=== PATIENT | male | born 1965 | race Caucasian/White ===

== ENCOUNTER → 2017-07-25 | Day surgery (SDC) | payer BC, OTHER ==
[2017-07-15 10:14] VITALS: Ht 165.1 cm; Wt 131.8 kg
[~2017-07-25] VITALS: Ht 165.1 cm; Wt 131.8 kg
[~2017-07-25] MED LIST: ALBU18002 INH; AMLO-114 PO; ASPI325T45 PO; BENZ100C84 PO; CLBPO15 TOP; FIBETAB PO; GLC/500 PO; INSU100I23 SC; LATA0.009 OPB; LEVO100T7 PO; LIDOCAINE HCL 2% 2 ML VIAL (20MG/ML) ONE; LIRA18IN SC; MULT-506 PO; NAPR375T3 PO; NYSS/ PO; OMEG10007 PO; POTA10CA28 PO; PROPOFOL IV EMULSION 10 MG/ML 20 ML VIAL IV ONE; ROSU20TA PO; SODIUM CHLORIDE 0.9% 500ML 500 ML IV ONE; VITAMIN D PO
--- NOTE | 2017-07-25 09:23 | Endo History and Physical ---
History & Physical Date of Service: Jul 25, 2017. Chief Complaint: screening Referring Physician: Dr. Danis Mariano III History of Present Illness screening colonoscopy Past Surgical History Hx Cardiac Surgery: No Hx Internal Defibrillator: No Hx Pacemaker: No Hx Abdominal Surgery: No Hx of Implantable Prosthesis: No Hx Post-Op Nausea and Vomiting: No Hx Cancer Surgery: No Hx Thoracic Surgery: No Hx Orthopedic: No Hx Urinary Tract Surgery: No Family History None Social History Smoking Status: Never Smoker Hx Substance Use: No Hx Alcohol Use: No Allergies Coded Allergies: Doxycycline (Verified Allergy, Unknown, HIVES, 07/15/17) Macrolides and Ketolides (Verified Allergy, Unknown, UNKNOWN, 07/15/17) Morphine and Related (Verified Allergy, Unknown, GI UPSET, 07/15/17) Penicillins (Verified Allergy, Unknown, RASH, 07/15/17) Current Medications Reported Home Medications Medications Dose Route/Sig Max Daily Dose Days Date Category Aspirin 325 Mg Tab 325 Mg PO HS 07/15/17 Reported Multivitamin (Multivitamins) Tab 1 Tab PO QAM 07/15/17 Reported [Vitamin D] 1 Tab PO QAM 07/15/17 Reported Fiber Complete (Fiber) 62.5 Mg Tab 1 Tab PO QAM 07/15/17 Reported [place]-3 (Fish Oil) 1 Ea Cap 1 Cap PO QAM 07/15/17 Reported Clobetasol Propionate 45 Appln/15 Gm Oint 1 Appln TOP HS 30 07/15/17 Reported Xalatan 0.005% Oph Blanca (Latanoprost) 0.005 % Blanca 1 Drops OPB HS 90 07/15/17 Reported Crestor (Rosuvastatin Calcium) 20 Mg Tab 20 Mg PO QPM 07/15/17 Reported Tessalon Perles (Benzonatate) 100 Mg Cap 1-2 Cap PO Q4 PRN 5 07/15/17 Reported Proair Respiclick (Albuterol Sulfate) 108 Mcg/Act Aer 2 Puff INH Q4H PRN 07/15/17 Reported Levothyroxine Sodium 100 Mcg Tab 1 Tab PO HS 90 07/15/17 Reported Victoza (Liraglutide) 18 Mg/3 Ml Inj 1 Dose SC HS 07/15/17 Reported Norvasc (Amlodipine Besylate) 10 Mg Tab 10 Mg PO HS 07/15/17 Reported Naproxen 375 Mg Tab 1 Tab PO BID 30 07/15/17 Reported Basaglar Kwikpen (Insulin Glargine) 100 Unit/Ml Inj 32 Unit SC BID 07/15/17 Reported Micro-K Ext Rel (Potassium Chloride) 10 Meq Capcr 10 Meq PO BID 07/15/17 Reported Nystatin Suspension (Nystatin) 1 Ml Susp 1 Dose PO BID 07/15/17 Reported Glucophage (Metformin Hcl) 500 Mg Tab 2 Tab PO BID 07/15/17 Reported Vital Signs Weight (Kilograms): 131.82 Height (Feet): 5 Height (Inches): 5 Date Time Temp Pulse Resp B/P (MAP) Pulse Ox O2 Delivery O2 Flow Rate FiO2 07/25/17 09:07 36.8 89 20 162/96 (118) 96 Room Air Physical Exam General Appearance: no apparent distress Respiratory/Chest: Auscultation: breath sounds normal Cardiovascular: Heart Auscultation: RRR Abdomen: Inspection & Palpation: soft Liver: non-tender Assessment and Plan stable for colonoscopy
--- NOTE | 2017-07-25 11:08 | Discharge Instructions ---
Endoscopy Patient Instructions Date / Procedure(s) Performed Jul 25, 2017. Colonoscopy Allergy Information Coded Allergies: Doxycycline (Verified Allergy, Unknown, HIVES, 07/15/17) Macrolides and Ketolides (Verified Allergy, Unknown, UNKNOWN, 07/15/17) Morphine and Related (Verified Allergy, Unknown, GI UPSET, 07/15/17) Penicillins (Verified Allergy, Unknown, RASH, 07/15/17) Discharge Date / Findings Jul 25, 2017. normal colonoscopy with poor prep. Medication Instructions Stopped Medication(s): last dose ASAand Metformin Weds Provider Instructions Activity Restrictions - No exercising or heavy lifting for 24 hours. - Do not drink alcohol the day of the procedure. - Do not drive a car or operate machinery until the day after the procedure. - Do not make any important decisions or sign important papers in 24 hours after the procedure. Following Day: - Return to full activity which may include returning to work/school. Diet Start your diet with liquids and light foods (jello, soup, juice, toast). Then eat your usual diet if not nauseated. Treatment For Common After Affects For mild abdominal pain, bloating, or excessive gas: - Rest - Eat lightly - Lie on right side Follow-Up Information Follow-up with Dr. Danis Mariano III as scheduled Anesthesia Information What You Should Know You have had a procedure that required some medicine to reduce anxiety and discomfort. This treatment is called moderate sedation. After receiving the treatment, you may be sleepy, but you will be able to breathe on your own. The effects of the treatment may last for several hours. Follow these instructions along with Activity/Diet recommendations noted above: * Do NOT do anything where dizziness or clumsiness would be dangerous. * Rest quietly at home today, then you can be up and about tomorrow. * Have a responsible person stay with you the rest of today. * You may have had an I.V. today. If so, you may take the dressing off later today. Recommendations Call your doctor if: * Trouble breathing * Continuous vomiting for more than 24 hours * Temperature above 101 degrees * Severe abdominal pain or bloating * Pain not relieved by pain medicine ordered * There is increased drainage or redness from any incision * A large amount of rectal bleeding greater than 2-3 tablespoons. (If you had a polyp/s removed or have hemorrhoids, a small amount of blood - from the rectum is to be expected.) * You have any unanswered questions or concerns. IN THE EVENT OF A SERIOUS EMERGENCY, GO TO THE NEAREST EMERGENCY ROOM Your discharge instructions were prepared by provider Yousuf Ridlye. Patient Instructions Signature Page [place] Patient (or Guardian) Signature/Date: I have read and understand the instructions given to me by my caregivers. Caregiver/RN/Doctor Signature/Date: The above-named patient and/or guardian has received patient instructions on this date. + Original Patient Signature Page (only) stays with chart. Please make copy for patient.
--- NOTE | 2017-07-25 11:09 | GI REPORT ---
Procedure Date: 07/25/2017 10:33 AM Procedure: Colonoscopy Indications: Screening for colorectal malignant neoplasm Medicines: See the Anesthesia note for documentation of the administered medications Complications: No immediate complications. Estimated Blood Loss: Estimated blood loss: none. Procedure: Pre-Anesthesia Assessment: - Prior to the procedure, a History and Physical was performed, and patient medications, allergies and sensitivities were reviewed. The patient's tolerance of previous anesthesia was reviewed. - The risks and benefits of the procedure and the sedation options and risks were discussed with the patient. All questions were answered and informed consent was obtained. - Patient identification and proposed procedure were verified prior to the procedure by the physician and the nurse. The procedure was verified in the pre-procedure area. - Pre-procedure physical examination revealed no contraindications to sedation. - After reviewing the risks and benefits, the patient was deemed in satisfactory condition to undergo the procedure. After I obtained informed consent, the scope was passed under direct vision. Throughout the procedure, the patient's blood pressure, pulse, and oxygen saturations were monitored continuously. The scope was introduced through the anus and advanced to the cecum, identified by appendiceal orifice and ileocecal valve. The colonoscopy was performed without difficulty. The patient tolerated the procedure well. The quality of the bowel preparation was poor. Findings: The perianal and digital rectal examinations were normal. A moderate amount of stool was found in the entire colon, interfering with visualization. The exam was otherwise without abnormality on direct and retroflexion views. Impression: - Preparation of the colon was poor. - Stool in the entire examined colon. - The examination was otherwise normal on direct and retroflexion views. - No specimens collected. Recommendation: - Repeat colonoscopy in 1 year because the bowel preparation was poor. - Discharge patient to home. Yousuf Ridley M.D. Yousuf Ridley MD 07/25/2017 11:09:04 AM This report has been signed electronically. Note Initiated On: 07/25/2017 10:33 AM I attest to the content of the Intraoperative Record and orders documented therein, exceptions below
[2017-07-25 11:46] VITALS: BP 123/70; PULSE 76; O2SAT 98
--- NOTE | 2017-07-25 12:03 | Anesthesiology Progress Note ---
Anesthesia Post Op Note Date & Time Jul 25, 2017 at 12:03 Vital Signs Pain Intensity: 0 Vital Signs Past 12 Hours Date Time Temp Pulse Resp B/P (MAP) Pulse Ox O2 Delivery O2 Flow Rate FiO2 07/25/17 11:46 76 20 123/70 (87) 98 Room Air 07/25/17 11:23 78 18 121/73 (89) 98 Room Air 07/25/17 11:08 75 14 107/56 (73) 98 Room Air 07/25/17 09:07 36.8 89 20 162/96 (118) 96 Room Air Notes Mental Status: alert / awake / arousable, participated in evaluation Pt Amnestic to Procedure: Yes Nausea / Vomiting: adequately controlled Pain: adequately controlled Airway Patency, RR, SpO2: stable & adequate BP & HR: stable & adequate Hydration State: stable & adequate Anesthetic Complications: no major complications apparent
== END | disposition home or self-care (01) ==
LOC: C.GI 08:24
PROVIDERS: ATTEND Internal Medicine Gastroenterology
DX: Z12.11 Encounter for screening for malignant neoplasm of colon (principal); G47.33 Obstructive sleep apnea (adult) (pediatric); I10 Essential (primary) hypertension; E78.5 Hyperlipidemia, unspecified; Z86.73 Personal history of transient ischemic attack (TIA), and cerebral infarction without residual deficits; E11.9 Type 2 diabetes mellitus without complications; Z79.4 Long term (current) use of insulin; E03.9 Hypothyroidism, unspecified; F32.9 Major depressive disorder, single episode, unspecified; E66.01 Morbid (severe) obesity due to excess calories; H40.9 Unspecified glaucoma; Z79.82 Long term (current) use of aspirin

== ENCOUNTER 2017-12-10 12:17 | Inpatient (IN) | payer OTHER ==
[2017-12-10] VITALS (22 sets, daily range): BP systolic 132–209; BP diastolic 70–119; PULSE 72–89; TEMP 36.5–37.2; O2SAT 94–100; BMI 52.2
[~2017-12-10] VITALS: Ht 162.6 cm; Wt 126.6 kg
[~2017-12-10 12:17] MED LIST changes: -LIDOCAINE HCL 2% 2 ML VIAL (20MG/ML) ONE; +NAPR-1221 PO; -NAPR375T3 PO; -PROPOFOL IV EMULSION 10 MG/ML 20 ML VIAL IV ONE; -SODIUM CHLORIDE 0.9% 500ML 500 ML IV ONE
[2017-12-10] MEDS ORDERED: CHOL100010 PO (13:07)
--- NOTE | 2017-12-10 13:29 | DIAGNOSTIC IMAGING REPORT ---
CHEST ONE VIEW PORTABLE CLINICAL HISTORY: 52 years-old Male presenting with ANEMIA, PALPITATIONS. TECHNIQUE: Portable upright AP view of the chest was obtained. COMPARISON: 01/20/2008. FINDINGS: Cardiac silhouette enlarged. Mild vascular prominence. Lungs and pleural spaces clear. Osseous structures normal. IMPRESSION: 1. Mild cardiomegaly and pulmonary vascular prominence could suggest volume overload. No nawaf pulmonary edema or other evidence of acute cardiopulmonary disease. Electronically signed by: Emre Ascencio M.D. 12/10/2017 1:27 PM Dictated Date/Time: 12/10/2017 1:26 PM
[2017-12-10 13:54] LABS: PTT PATIENT 22.5 SECONDS (21.0-31.0)
[2017-12-10 14:01] LABS: HEMATOCRIT 22.1 % (42-52); HEMOGLOBIN 5.8 g/dL (14.0-18.0); MEAN CELL VOLUME 56.1 fL (80-100); MEAN CORPUSCULAR HEMOGLOBIN 14.7 pg (25-34); MEAN CORPUSCULAR HGB CONC 26.2 g/dl (32-36); PLATELET COUNT 252 K/uL (130-400); RED CELL DISTRIBUTION WIDTH SD 43.3 fL (36.4-46.3); WHITE BLOOD COUNT 7.91 K/uL (4.8-10.8)
[2017-12-10 14:04] LABS: ALBUMIN 3.6 gm/dl (3.4-5.0); ALT/SGPT 21 U/L (12-78); AST/SGOT 15 U/L (15-37); BLOOD UREA NITROGEN 8 mg/dl (7-18); CALCIUM 8.7 mg/dl (8.5-10.1); CARBON DIOXIDE 25 mmol/L (21-32); CREATININE 0.89 mg/dl (0.60-1.40); GLUCOSE 181 mg/dl (70-99); POTASSIUM 3.9 mmol/L (3.5-5.1); SODIUM 135 mmol/L (136-145)
[2017-12-10 14:09] LABS: ALKALINE PHOSPHATASE 83 U/L (45-117); CKMB 0.8 ng/ml (0.5-3.6); TOTAL PROTEIN 7.6 gm/dl (6.4-8.2)
--- NOTE | 2017-12-10 14:15 | EMERGENCY ROOM VISIT NOTE ---
ED Visit Note First contact with patient: 12:42 Patient was seen by our PA/MECHANICAL INTEGRITY ENGINEER. I was involved in the patient's care and did evaluate the patient myself. I was involved in the care throughout the ER stay. The patient presents with some fatigue. Outpatient laboratory testing showed a low hemoglobin, hemoglobin was confirmed low at 5.8. The patient did consent to a packed red blood cell transfusion. He is currently resting comfortably. Hospitalization is required. The cause for the anemia is unclear.
[2017-12-10 14:16] LABS: BASO % 1.4 %; BASO ABS # 0.11 K/uL (0-0.2); EOS % 6.6 %; EOS ABS # 0.52 K/uL (0-0.5); IG# 0.02 K/uL (0.00-0.02); LYMPH % 18.6 %; LYMPH ABS # 1.47 K/uL (1.2-3.4); MONO % 6.1 %; MONO ABS # 0.48 K/uL (0.11-0.59); NEUT ABS # 5.31 K/uL (1.4-6.5)
--- NOTE | 2017-12-10 15:06 | EMERGENCY ROOM VISIT NOTE ---
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 Patient reports that he was seen by Dr. Hurd today to be cleared for cataract surgery in 1 week. He had blood work performed today which showed that he was anemic, with a hemoglobin of 5.7. Patient reports that he saw his primary care provider Dr. Mariano for a physical and medical clearance one week ago. He does not believe that any blood work was performed at that time. He does not have a known history of anemia. He reports that he has been tired recently, attributes this to the "winter blues," he denies any lightheadedness, dizziness or near syncope. No chest pain, but has had some intermittent palpitations or pounding heart. He has had some intermittent epistaxis but reports that he is generally able to get the bleeding stopped after a few minutes. He denies any dark or tarry stools, bright red blood per rectum or hematemesis. He denies any easy bruising or bleeding gums. He denies any abdominal pain, reports he had a colonoscopy recently which was normal. He takes a full-strength aspirin daily for his history of CVA, and is using naproxen every other day for joint pain. He reports his father had pernicious anemia. Review of Systems Review of systems as per HPI. All other systems reviewed were negative. 10 systems reviewed. Past Medical/Surgical History Medical Problems: (1) Cerebral Art Occlusion Nos W Cerebral Infarction (2) Diab Flores Wo Compl, Type Ii Or Unspec Type, Not Uncntrld (3) Hyperlipidemia, Unspecified (4) Hypertension Nos (5) Hypothyroidism, Unspecified (6) Obstructive Sleep Apnea (Adult) (Pediatric) Surgical Problems: (1) History of strabismus surgery Electronic medical records are reviewed and summarized as above/below. See Problem List. Social History Smoking Status: Never Smoker Alcohol Use: none Marital Status: Housing Status: lives with significant other Occupation Status: employed Current/Historical Medications Scheduled Amlodipine (Norvasc), 10 MG PO HS Aspirin (Aspirin), 325 MG PO HS Cholecalciferol (Vitamin D), 1 TAB PO DAILY Clobetasol Propionate (Clobetasol Propionate), 1 APPLN TOP HS Fiber (Fiber Complete), 1 TAB PO QAM Fish Oil ([place]-3), 1 CAP PO QAM Insulin Glargine (Basaglar Kwikpen), 32 UNIT SC BID Latanoprost (Xalatan 0.005% Oph Blanca), 1 DROPS OPB HS Levothyroxine Sodium (Levothyroxine Sodium), 1 TAB PO HS Liraglutide (Victoza), 1.2 MG SC HS Metformin Hcl (Glucophage), 2 TAB PO BID Metoprolol Succinate (Toprol Xl), 0.5 TAB PO DAILY Multivitamin (Multivitamin), 1 TAB PO QAM Naproxen (Naproxen), 1 TAB PO BID Nystatin (Nystatin Suspension), 1 DOSE PO BID Potassium Chloride (Micro-K Ext Rel), 10 MEQ PO BID Rosuvastatin Calcium (Crestor), 20 MG PO QPM Scheduled PRN Albuterol Sulfate (Proair Respiclick), 2 PUFF INH Q4H PRN for Shortness of Breath Benzonatate (Tessalon Perles), 1-2 CAP PO Q4 PRN for Cough Physical Exam Vital Signs Date Time Temp Pulse Resp B/P (MAP) Pulse Ox O2 Delivery O2 Flow Rate FiO2 12/10/17 17:00 76 17 166/93 100 12/10/17 16:52 36.9 76 20 98 12/10/17 16:45 74 11 173/95 99 12/10/17 16:31 75 15 167/94 98 12/10/17 16:17 77 15 99 12/10/17 16:16 190/103 12/10/17 16:15 173/99 12/10/17 16:15 77 12 190/103 100 0.0 12/10/17 16:14 36.9 76 12 173/99 94 12/10/17 16:02 162/88 12/10/17 16:01 37.0 72 16 162/88 100 0.0 12/10/17 15:49 37.2 74 15 170/96 100 0.0 12/10/17 15:47 76 15 100 12/10/17 15:46 170/96 12/10/17 15:17 77 18 93 2/28/18 14:47 79 15 100 12/10/17 14:17 86 12 99 12/10/17 14:16 93 18 152/80 96 Room Air 12/10/17 14:01 152/80 12/10/17 13:47 73 17 100 12/10/17 13:37 82 14 141/72 95 Room Air 12/10/17 13:34 141/72 12/10/17 13:17 85 16 12/10/17 12:47 87 19 12/10/17 12:45 86 12/10/17 12:43 Room Air 12/10/17 12:19 36.5 91 18 199/85 100 Physical Exam CONSTITUTIONAL: Patient is an obese 52-year-old white male who is awake and alert and in no acute distress. He appears older than his stated age. EYES: Pupils equal, round, reactive to light and accommodation. EOMs intact without nystagmus. Sclera are anicteric. Conjunctivae are pale. ENT: Tympanic membranes intact, with normal landmarks. External canals are clear. Oral and nasopharynx are clear. Mucous membranes are moist, no lesions , tongue and gums appear normal. NECK: No bruits auscultated. Supple without lymphadenopathy. No thyromegaly. No meningeal signs. Full active range of motion without discomfort. CARDIOVASCULAR: Regular rate and rhythm, with normal S1 and S2, no murmur is appreciated. No carotid bruits auscultated. No JVD. Peripheral pulses easy to palpable. RESPIRATORY: Breath sounds equal and clear to auscultation without wheezes, rales, or rhonchi heard. Full and equal chest expansion without accessory muscle use or retractions. GI: Bowel sounds are present. Abdomen is soft, nontender, nondistended. No organomegaly. No pulsatile masses. No guarding or rebound. RECTAL EXAM: No masses or tenderness, stool is brown and Hemoccult negative. MUSCULOSKELETAL: Full range of motion of extremities x 4 with good strength. No cyanosis, edema, joint tenderness or swelling. No deformity. INTEGUMENTARY: No lesions or rash, normal skin turgor. NEUROLOGICAL: Alert, oriented, and cooperative. Cranial nerves, sensation and strength grossly intact. Pupils round, equal, and react to light, EOMs are full. LYMPH: No lymphadenopathy. Medical Decision & Procedures ER Provider Diagnostic Interpretation: CHEST ONE VIEW PORTABLE CLINICAL HISTORY: 52 years-old Male presenting with ANEMIA, PALPITATIONS. TECHNIQUE: Portable upright AP view of the chest was obtained. COMPARISON: 01/20/2008. FINDINGS: Cardiac silhouette enlarged. Mild vascular prominence. Lungs and pleural spaces clear. Osseous structures normal. IMPRESSION: 1. Mild cardiomegaly and pulmonary vascular prominence could suggest volume overload. No nawaf pulmonary edema or other evidence of acute cardiopulmonary disease. Laboratory Results 12/10/17 13:28 Red Blood Count 3.94, Mean Corpuscular Volume 56.1, Mean Corpuscular Hemoglobin 14.7, Mean Corpuscular Hemoglobin Concent 26.2, Neutrophils (%) (Auto) 67.0, Lymphocytes (%) (Auto) 18.6, Monocytes (%) (Auto) 6.1, Eosinophils (%) (Auto) 6.6, Basophils (%) (Auto) 1.4, Neutrophils # (Auto) 5.31, Lymphocytes # (Auto) 1.47, Monocytes # (Auto) 0.48, Eosinophils # (Auto) 0.52, Basophils # (Auto) 0.11 12/10/17 13:28 Test 12/10/17 13:28 White Blood Count 7.91 K/uL (4.8-10.8) Red Blood Count 3.94 M/uL (4.7-6.1) Hemoglobin 5.8 g/dL (14.0-18.0) Hematocrit 22.1 % (42-52) Mean Corpuscular Volume 56.1 fL (80-100) Mean Corpuscular Hemoglobin 14.7 pg (25-34) Mean Corpuscular Hemoglobin Concent 26.2 g/dl (32-36) Platelet Count 252 K/uL (130-400) Neutrophils (%) (Auto) 67.0 % Lymphocytes (%) (Auto) 18.6 % Monocytes (%) (Auto) 6.1 % Eosinophils (%) (Auto) 6.6 % Basophils (%) (Auto) 1.4 % Neutrophils # (Auto) 5.31 K/uL (1.4-6.5) Lymphocytes # (Auto) 1.47 K/uL (1.2-3.4) Monocytes # (Auto) 0.48 K/uL (0.11-0.59) Eosinophils # (Auto) 0.52 K/uL (0-0.5) Basophils # (Auto) 0.11 K/uL (0-0.2) RDW Standard Deviation 43.3 fL (36.4-46.3) RDW Coefficient of Variation 21.0 % (11.5-14.5) Immature Granulocyte % (Auto) 0.3 % Immature Granulocyte # (Auto) 0.02 K/uL (0.00-0.02) Hypochromasia PRESENT Poikilocytosis PRESENT Anisocytosis PRESENT Microcytosis PRESENT Absolute Reticulocyte Count 0.06 10^6/uL (0.02-0.10) Percent Reticulocyte Count 1.7 % (0.5-2.0) Prothrombin Time 10.9 SECONDS (9.0-12.0) Prothromb Time International Ratio 1.0 (0.9-1.1) Activated Partial Thromboplast Time 22.5 SECONDS (21.0-31.0) Partial Thromboplastin Ratio 0.9 Anion Gap 6.0 mmol/L (3-11) Est Creatinine Clear Calc Drug Dose 129.4 ml/min Estimated GFR () 115.6 Estimated GFR (Non- 99.7 BUN/Creatinine Ratio 9.4 (10-20) Calcium Level 8.7 mg/dl (8.5-10.1) Total Bilirubin 0.5 mg/dl (0.2-1) Aspartate Amino Transf (AST/SGOT) 15 U/L (15-37) Alanine Aminotransferase (ALT/SGPT) 21 U/L (12-78) Alkaline Phosphatase 83 U/L (45-117) Total Creatine Kinase 64 U/L (39-308) Creatine Kinase MB 0.8 ng/ml (0.5-3.6) Creatine Kinase MB Ratio 1.3 (0-3.0) Troponin I < 0.015 ng/ml (0-0.045) Total Protein 7.6 gm/dl (6.4-8.2) Albumin 3.6 gm/dl (3.4-5.0) Globulin 4.0 gm/dl (2.5-4.0) Albumin/Globulin Ratio 0.9 (0.9-2) ECG Per My Interpretation Indication: other (severe anemia) Rate (beats per minute): 91 Rhythm: sinus rhythm Findings: 1st degree AV block, nonspecific-ST abn (Lateral), no acute ischemic change Change: no significant change ED Course The patient was seen and assessed as above. His old records were reviewed. He does not have any recent laboratory studies at our facility for comparison. His history and presentation were reviewed with attending physician and ED workup was agreed upon. IV lock was initiated, EKG was performed and the patient was placed on a monitor car operator. Laboratory studies were collected including CBC with differential, CMP, coags and cardiac enzymes. He was also typed and crossed for 3 units. Chest x-ray was performed and was as noted above , noting mild cardiomegaly and pulmonary vascular prominence possibly suggesting volume overload. No nawaf pulmonary edema or other evidence of acute cardiopulmonary disease. Laboratory studies noted a normal white count 7900, no left shift or bandemia. Hemoglobin and hematocrit are 5.8 and 22.1 respectively, with all indices low. Platelet count is normal at 252,000. Coags are unremarkable. Electrolytes are without gross abnormality. Renal function is normal. LFTs are unremarkable and cardiac enzymes are negative for ischemic process. Laboratory and diagnostic imaging studies were reviewed with the patient. The patient was consented for transfusion, 2 units were ordered initially. [facility] Differential diagnoses entertained included blood loss anemia, iron deficiency anemia, B12 or folate deficiency anemia, malignancy, GI bleed, cardiac ischemia , among others. Medical Decision See ED Course. Medication Reconcilliation Current Medication List: was personally reviewed by me Blood Pressure Screening Patient's blood pressure: Elevated blood pressure Blood pressure disposition: Elevated BP felt to be situational, Referred to PCP Impression Primary Impression: Anemia Departure Information Referrals Danis Mariano III, M.D. (PCP) Patient Instructions My [facility]
[2017-12-10] MEDS ORDERED: DEXTROSE 50% 50 ML SYR IV PRN (17:15)
[2017-12-10] MEDS ORDERED: GLUCAGON FOR INJ 1 MG VIAL SQ PRN (17:15)
[2017-12-10] MEDS ORDERED: GLUCOSE 40% GEL 15 GM TUBE PO PRN (17:15)
[2017-12-10] MEDS ORDERED: ACETAMINOPHEN 325 MG TAB PO PRN (17:15)
[2017-12-10] MEDS ORDERED: GLUCOSE 10 TABS/TUBE PO PRN (17:15)
[2017-12-10] MEDS ORDERED: ONDANSETRON INJ 2 MG/ML 2 ML VIAL IV PRN (17:15)
[2017-12-10] MEDS ORDERED: METO-478 PO (17:18)
--- NOTE | 2017-12-10 17:49 | History and Physical ---
History & Physical Date & Time of Service: Dec 10, 2017 at 17:21 Chief Complaint: Low Hemoglobin Primary Care Physician: Danis Mariano III, M.D. History of Present Illness Source: patient, clinic records, hospital records This is a 52 year old male with a PMH of insulin dependent DM2, HTN, HLD, glaucoma, cataracts of eyes, hx. of CVA with minimal residual symptoms, morbid obesity, severe CHARLEEN, hypothyroidism - presents to the ED after being sent over due to having low Hgb on outpatient labs. He is scheduled to have cataract eye surgery and was being seen by primary care and cardiology for pre-op clearance. Was seen by cardiology in the office; started on Toprol by cardiology. Noted to have significant swelling of bilateral lower extremities. States he had some chest pressure/discomfort and mild shortness of breath, so that's why he was sent to the [facility] for clearance. Otherwise, has no cardiac history. Denies any bleeding history, denies any blood in the stool or urine. States he had an episode of epistaxis earlier this week, but it only lasted a minute or so before stopping on its own. His symptoms include: +chest pressure, +shortness of breath, +weakness, +chills. Family History Father - pernicious anemia Maternal Grandmother - possible leukemia Social History Smoking Status: Never Smoker Alcohol Use: socially Drug Use: none Marital Status: Occupational Status: employed Immunizations History of Influenza Vaccine: Unknown History of Tetanus Vaccine?: Unknown History of Pneumococcal: Unknown History of Hepatitis B Vaccine: Unknown Allergies Coded Allergies: Doxycycline (Verified Allergy, Unknown, HIVES, 12/10/17) Macrolides and Ketolides (Verified Allergy, Unknown, UNKNOWN, 12/10/17) Morphine and Related (Verified Allergy, Unknown, GI UPSET, 12/10/17) Penicillins (Verified Allergy, Unknown, RASH, 12/10/17) Home Medications Scheduled Amlodipine (Norvasc), 10 MG PO HS Aspirin (Aspirin), 325 MG PO HS Cholecalciferol (Vitamin D), 1 TAB PO DAILY Clobetasol Propionate (Clobetasol Propionate), 1 APPLN TOP HS Fiber (Fiber Complete), 1 TAB PO QAM Fish Oil (Bovey-3), 1 CAP PO QAM Insulin Glargine (Basaglar Kwikpen), 32 UNIT SC BID Latanoprost (Xalatan 0.005% Oph Blanca), 1 DROPS OPB HS Levothyroxine Sodium (Levothyroxine Sodium), 1 TAB PO HS Liraglutide (Victoza), 1.2 MG SC HS Metformin Hcl (Glucophage), 2 TAB PO BID Metoprolol Succinate (Toprol Xl), 0.5 TAB PO DAILY Multivitamin (Multivitamin), 1 TAB PO QAM Naproxen (Naproxen), 1 TAB PO BID Nystatin (Nystatin Suspension), 1 DOSE PO BID Potassium Chloride (Micro-K Ext Rel), 10 MEQ PO BID Rosuvastatin Calcium (Crestor), 20 MG PO QPM Scheduled PRN Albuterol Sulfate (Proair Respiclick), 2 PUFF INH Q4H PRN for Shortness of Breath Benzonatate (Tessalon Perles), 1-2 CAP PO Q4 PRN for Cough Review of Systems Constitutional: + chills, + weakness, + fatigue, No fever, No sweats, No weight loss Respiratory: + shortness of breath, + dyspnea on exertion, No cough, No sputum , No wheezing, No dyspnea at rest, No hemoptysis Cardiovascular: + chest pain, + edema, No orthopnea, No palpitations Abdomen: No pain, No nausea, No vomiting, No diarrhea, No constipation, No GI bleeding Musculoskeletal: No joint pain, No muscle pain Genitourinary - Male: No hematuria, No dysuria, No urinary frequency, No urinary urgency Neurologic: + weakness, No numbness/tingling, No vertigo, No balance problems Psychiatric: No depression symptoms, No anxiety, No insomnia Endocrine: + fatigue Hematologic / Lymphatic: No abnormal bleeding/bruising Integumentary: No rash Allergic / Immunologic: No environmental allergies, No seasonal allergies Physical Exam Vital Signs Date Time Temp Pulse Resp B/P (MAP) Pulse Ox O2 Delivery O2 Flow Rate FiO2 12/10/17 16:17 77 15 99 12/10/17 16:16 190/103 12/10/17 16:15 173/99 12/10/17 16:14 36.9 76 12 173/99 94 12/10/17 16:02 162/88 12/10/17 16:01 37.0 72 16 162/88 100 0.0 12/10/17 15:49 37.2 74 15 170/96 100 0.0 12/10/17 15:47 76 15 100 12/10/17 15:46 170/96 12/10/17 15:17 77 18 93 12/10/17 14:47 79 15 100 12/10/17 14:17 86 12 99 12/10/17 14:16 93 18 152/80 96 Room Air 12/10/17 14:01 152/80 12/10/17 13:47 73 17 100 12/10/17 13:37 82 14 141/72 95 Room Air 12/10/17 13:34 141/72 12/10/17 13:17 85 16 12/10/17 12:47 87 19 12/10/17 12:45 86 12/10/17 12:43 Room Air 12/10/17 12:19 36.5 91 18 199/85 100 General Appearance: no apparent distress, + obese Head: normocephalic, atraumatic Eyes: + pertinent finding (previous surgical changes) ENT: normal ENT inspection, hearing grossly normal Neck: supple Respiratory/Chest: chest non-tender, lungs clear, normal breath sounds, no respiratory distress, no accessory muscle use Cardiovascular: regular rate, rhythm, + systolic murmur (+2/6 systolic ejection murmur on the R second intercostal space) Abdomen/GI: normal bowel sounds, non tender, soft Back: normal inspection, no CVA tenderness, no muscle spasm, normal range of motion Extremities/Musculoskelatal: + pedal edema, + swelling (+2-3 pitting edema bilateral lower extremities) Neurologic/Psych: no motor/sensory deficits, alert, normal mood/affect, oriented x 3 Skin: normal color Lymphatic: no adenopathy Diagnostics Laboratory Results Results Past 24 Hours Test 12/10/17 13:28 12/10/17 17:15 Range/Units White Blood Count 7.91 4.8-10.8 K/uL Red Blood Count 3.94 4.7-6.1 M/uL Hemoglobin 5.8 14.0-18.0 g/dL Hematocrit 22.1 42-52 % Mean Corpuscular Volume 56.1 80-100 fL Mean Corpuscular Hemoglobin 14.7 25-34 pg Mean Corpuscular Hemoglobin Concent 26.2 32-36 g/dl Platelet Count 252 130-400 K/uL Neutrophils (%) (Auto) 67.0 % Lymphocytes (%) (Auto) 18.6 % Monocytes (%) (Auto) 6.1 % Eosinophils (%) (Auto) 6.6 % Basophils (%) (Auto) 1.4 % Neutrophils # (Auto) 5.31 1.4-6.5 K/uL Lymphocytes # (Auto) 1.47 1.2-3.4 K/uL Monocytes # (Auto) 0.48 0.11-0.59 K/uL Eosinophils # (Auto) 0.52 0-0.5 K/uL Basophils # (Auto) 0.11 0-0.2 K/uL RDW Standard Deviation 43.3 36.4-46.3 fL RDW Coefficient of Variation 21.0 11.5-14.5 % Immature Granulocyte % (Auto) 0.3 % Immature Granulocyte # (Auto) 0.02 0.00-0.02 K/uL Hypochromasia PRESENT Poikilocytosis PRESENT Anisocytosis PRESENT Microcytosis PRESENT Prothrombin Time 10.9 9.0-12.0 SECONDS Prothromb Time International Ratio 1.0 0.9-1.1 Activated Partial Thromboplast Time 22.5 21.0-31.0 SECONDS Partial Thromboplastin Ratio 0.9 Sodium Level 135 136-145 mmol/L Potassium Level 3.9 3.5-5.1 mmol/L Chloride Level 104 98-107 mmol/L Carbon Dioxide Level 25 21-32 mmol/L Anion Gap 6.0 3-11 mmol/L Blood Urea Nitrogen 8 7-18 mg/dl Creatinine 0.89 0.60-1.40 mg/dl Est Creatinine Clear Calc Drug Dose 129.4 ml/min Estimated GFR () 115.6 Estimated GFR (Non- 99.7 BUN/Creatinine Ratio 9.4 10-20 Random Glucose 181 70-99 mg/dl Calcium Level 8.7 8.5-10.1 mg/dl Total Bilirubin 0.5 0.2-1 mg/dl Aspartate Amino Transf (AST/SGOT) 15 15-37 U/L Alanine Aminotransferase (ALT/SGPT) 21 12-78 U/L Alkaline Phosphatase 83 45-117 U/L Total Creatine Kinase 64 39-308 U/L Creatine Kinase MB 0.8 0.5-3.6 ng/ml Creatine Kinase MB Ratio 1.3 0-3.0 Troponin I < 0.015 0-0.045 ng/ml Total Protein 7.6 6.4-8.2 gm/dl Albumin 3.6 3.4-5.0 gm/dl Globulin 4.0 2.5-4.0 gm/dl Albumin/Globulin Ratio 0.9 0.9-2 Transferrin % Saturation 20-50 % Diagnostic Radiology CHEST ONE VIEW PORTABLE CLINICAL HISTORY: 52 years-old Male presenting with ANEMIA, PALPITATIONS. TECHNIQUE: Portable upright AP view of the chest was obtained. COMPARISON: 01/20/2008. FINDINGS: Cardiac silhouette enlarged. Mild vascular prominence. Lungs and pleural spaces clear. Osseous structures normal. IMPRESSION: 1. Mild cardiomegaly and pulmonary vascular prominence could suggest volume overload. No nawaf pulmonary edema or other evidence of acute cardiopulmonary disease. EKG Sinus rhythm with 1st degree A-V block Nonspecific T wave abnormality Impression Assessment and Plan This is a 52 year old male with a PMH of insulin dependent DM2, HTN, HLD, glaucoma, cataracts of eyes, hx. of CVA with minimal residual symptoms, morbid obesity, severe CHARLEEN, hypothyroidism - presents to the ED after being sent over due to having low Hgb on outpatient labs Anemia unknown cause at the moment, possibly secondary to epistaxis? rn long term care NSAID use (naproxen) - concern for gastritis Hgb on admission = 5.8, no previous Hgb noted plan for now is to transfuse two units pRBCs - recheck H/H four hours post- transfusion will check iron studies, B12, folate, retic count, stool occult will check UA for any microscopic hematuria pending above results, may need GI input holding aspirin and fish oils Lower Extremity Edema possibly related to lymphedema will check an echo check bilateral lower extremity venous ultrasound to r/o DVT Insulin Dependent DM2 will decrease home dose of insulin to Lantus 25 units BID and a sliding scale check an Ha1c in AM HTN holding amlodipine due to lower extremity edema continue Toprol 12.5mg (was started by cardiology today - 12/10) will also give a dose of Vasotec DVT ppx Kenneth Parks FULL CODE Resuscitation Status VTE Prophylaxis Will order VTE Prophylaxis: Yes
[2017-12-10] MEDS ORDERED: ENALAPRILAT IV 1.25 MG in DEXTROSE 5% 25ML 25 ML IV ONE (18:00)
[2017-12-10 18:56] LABS: RETIC COUNT % 1.7 % (0.5-2.0)
[2017-12-10] MEDS ORDERED: FUROSEMIDE INJ 20 MG in SYRINGE 0 ML IV ONE (19:00)
[2017-12-10] MEDS: ROSUVASTATIN CALCIUM 20 MG TAB PO SCH (20:56)
[2017-12-10] MEDS: LEVOTHYROXINE 100 MCG TAB PO SCH (20:56)
[2017-12-10] MEDS: LATANOPROST 0.005% OP SOLN 2.5 ML BTL OPB SCH (20:57)
[2017-12-10] MEDS: INSULIN GLARGINE SOLOSTAR 100 UNITS/ML 3 ML PEN SC SCH (20:58)
[2017-12-10] MEDS: INSULIN ASPART 100 UNITS/ML 3 ML PEN SC SCH (20:58)
[2017-12-10] MEDS: POTASSIUM CHLORIDE 10 MEQ TABCR PO SCH (20:59)
[2017-12-10] MEDS ORDERED: AMLODIPINE BESYLATE 5 MG TAB PO SCH (21:00)
[2017-12-10 22:51] LABS: HEMATOCRIT 28.4 % (42-52)
[2017-12-11 03:28] VITALS: BP 145/83; PULSE 85; TEMP 37; O2SAT 95
[2017-12-11 05:27] LABS: HEMATOCRIT 26.4 % (42-52); HEMOGLOBIN 7.4 g/dL (14.0-18.0); MEAN CELL VOLUME 60.8 fL (80-100); MEAN CORPUSCULAR HEMOGLOBIN 17.1 pg (25-34); PLATELET COUNT 230 K/uL (130-400); RED CELL DISTRIBUTION WIDTH CV 24.8 % (11.5-14.5); RED CELL DISTRIBUTION WIDTH SD 55.4 fL (36.4-46.3); WHITE BLOOD COUNT 9.34 K/uL (4.8-10.8)
[2017-12-11 05:28] LABS: BLOOD UREA NITROGEN 9 mg/dl (7-18); CALCIUM 8.7 mg/dl (8.5-10.1); CARBON DIOXIDE 26 mmol/L (21-32); CREATININE 0.93 mg/dl (0.60-1.40); GLUCOSE 104 mg/dl (70-99); SODIUM 137 mmol/L (136-145)
[2017-12-11 05:36] LABS: BASO % 0.9 %; BASO ABS # 0.08 K/uL (0-0.2); EOS % 5.7 %; EOS ABS # 0.53 K/uL (0-0.5); IG# 0.02 K/uL (0.00-0.02); LYMPH % 15.3 %; LYMPH ABS # 1.43 K/uL (1.2-3.4); MONO % 7.6 %; MONO ABS # 0.71 K/uL (0.11-0.59); NEUT % 70.3 %; NEUT ABS # 6.57 K/uL (1.4-6.5)
--- NOTE | 2017-12-11 06:30 | DIAGNOSTIC IMAGING REPORT ---
BILATERAL LOWER EXTREMITY VENOUS DOPPLER CLINICAL HISTORY: Bilateral lower extremity swelling. COMPARISON STUDY: No previous studies for comparison. TECHNIQUE: Sonography of the deep venous system of the bilateral lower extremities was performed. Compression and augmentation were evaluated. FINDINGS: This study was compromised due to suboptimal penetration. The common femoral, superficial femoral and popliteal veins were compressible. Augmentation was normal. Flow was shown within the deep calf vessels. IMPRESSION: Study compromised due to suboptimal penetration but no evidence of deep venous thrombus within the bilateral lower extremities. Electronically signed by: Isidoro Rodriguez M.D. 12/11/2017 6:29 AM Dictated Date/Time: 12/11/2017 6:28 AM
[2017-12-11 06:54] VITALS: BP 109/65; PULSE 86; TEMP 36.9; O2SAT 95
[2017-12-11 07:14] LABS: HEMOGLOBIN A1C 7.6 % (4.5-5.6)
[2017-12-11] MEDS: POTASSIUM CHLORIDE 10 MEQ TABCR PO SCH ×2 (07:56→19:51)
[2017-12-11] MEDS: METOPROLOL SUCC 25MG EXT REL TAB PO SCH (07:57)
[2017-12-11] MEDS: INSULIN ASPART 100 UNITS/ML 3 ML PEN SC SCH ×4 (08:03→19:49)
[2017-12-11] MEDS: INSULIN GLARGINE SOLOSTAR 100 UNITS/ML 3 ML PEN SC SCH ×2 (08:04→19:52)
[2017-12-11 08:42] LABS: HEMATOCRIT 27.1 % (42-52); HEMOGLOBIN 7.5 g/dL (14.0-18.0)
[2017-12-11] MEDS ORDERED: OPTIRAY 320 IV PRN (09:15)
--- NOTE | 2017-12-11 10:15 | Progress Note ---
Subjective Date of Service: Dec 11, 2017. Subjective Pt evaluation today including: conversation w/ patient, physical exam, lab review, review of studies, review of inpatient medication list Saw/examined the patient in room 220 Denies any symptoms Eager to go home Denies any bleeding, no blood in stool, urine, no epistaxis, no abdominal pain, no diarrhea/nausea/vomiting Problem List Medical Problems: (1) Anemia Status: Acute (2) Diab Flores Wo Compl, Type Ii Or Unspec Type, Not Uncntrld Status: Chronic (3) Hyperlipidemia, Unspecified Status: Chronic (4) Hypertension Nos Status: Chronic (5) Hypothyroidism, Unspecified Status: Chronic (6) Obstructive Sleep Apnea (Adult) (Pediatric) Status: Chronic Review of Systems Constitutional: No fever, No chills Respiratory: No cough, No sputum, No wheezing, No shortness of breath, No dyspnea on exertion, No dyspnea at rest, No hemoptysis Cardiac: No chest pain, No edema, No palpitations Abdomen: No pain, No nausea, No vomiting, No diarrhea, No constipation, No GI bleeding Male : No hematuria Heme: No abnormal bleeding/bruising Medications Current Inpatient Medications Medications (Trade) Dose Ordered Sig/Nick Route Start Time Stop Time Status Last Admin Dose Admin Acetaminophen (Tylenol Tab) 650 mg Q4H PRN PO 12/10/17 17:15 01/09/18 17:14 Ondansetron HCl (Zofran Inj) 4 mg Q6H PRN IV 12/10/17 17:15 01/09/18 17:14 Insulin Glargine (Lantus Solostar Pen) 25 units Q12 SC 12/10/17 21:00 01/09/18 20:59 12/11/17 08:04 25 UNITS Insulin Aspart (novoLOG ASPART) SLIDING SCALE If C... ACHS SC 12/10/17 21:00 01/09/18 20:59 12/11/17 08:03 3 UNITS Glucose (Glucose 40% Gel) 15-30 GRAMS 15 GRAMS... UD PRN PO 12/10/17 17:15 01/09/18 17:14 Glucose (Glucose Chew Tab) 4-8 Tablets 4 Tabl... UD PRN PO 12/10/17 17:15 01/09/18 17:14 Dextrose (Dextrose 50% 50ML Syringe) 25-50ML OF 50% DW IV FOR... UD PRN IV 12/10/17 17:15 01/09/18 17:14 Glucagon (Glucagon Inj) 1 mg UD PRN SQ 12/10/17 17:15 01/09/18 17:14 Latanoprost (Xalatan Oph Soln) 1 drops HS OPB 12/10/17 21:00 01/09/18 20:59 12/10/17 20:57 1 DROPS Levothyroxine Sodium (Synthroid Tab) 100 mcg HS PO 12/10/17 21:00 01/09/18 20:59 12/10/17 20:56 100 MCG Metoprolol Succinate (Toprol Xl Tab) 12.5 mg DAILY PO 12/11/17 09:00 01/10/18 08:59 12/11/17 07:57 12.5 MG Potassium Chloride (Klor-Con M10) 10 meq BID PO 12/10/17 21:00 01/09/18 20:59 12/11/17 07:56 10 MEQ Rosuvastatin Calcium (Crestor Tab) 20 mg QPM PO 12/10/17 21:00 01/09/18 20:59 12/10/17 20:56 20 MG Ioversol (Optiray 320) 100 ml UD PRN IV 12/11/17 09:15 12/15/17 09:14 Objective Vital Signs Date Time Temp Pulse Resp B/P (MAP) Pulse Ox O2 Delivery O2 Flow Rate FiO2 12/11/17 06:54 36.9 86 18 109/65 (80) 95 Room Air 12/11/17 04:00 Room Air 12/11/17 03:28 37.0 85 18 145/83 (103) 95 Room Air 12/11/17 00:00 Room Air 12/10/17 23:42 36.7 79 21 132/75 (94) 95 Room Air 12/10/17 21:49 37.0 81 18 136/78 98 12/10/17 21:01 36.8 82 18 149/83 100 12/10/17 20:08 36.5 85 16 149/82 100 12/10/17 20:00 Room Air 12/10/17 19:45 36.7 84 18 144/70 (94) 97 Room Air 12/10/17 19:30 36.6 89 18 138/76 98 12/10/17 19:13 37.0 85 16 164/91 100 12/10/17 18:46 37.0 85 16 149/87 100 T-piece 12/10/17 18:27 36.6 77 19 141/71 100 18 18:19 36.6 77 19 141/71 100 18 18:00 77 12 144/73 99 12/10/17 17:32 36.7 12/10/17 17:30 80 13 169/78 100 12/10/17 17:24 78 16 147/76 100 Room Air 12/10/17 17:22 79 22 147/76 96 12/10/17 17:16 80 14 209/119 100 12/10/17 17:00 76 17 166/93 100 12/10/17 16:52 36.9 76 20 98 12/10/17 16:45 74 11 173/95 99 12/10/17 16:31 75 15 167/94 98 12/10/17 16:17 77 15 99 12/10/17 16:16 190/103 12/10/17 16:15 173/99 12/10/17 16:15 77 12 190/103 100 0.0 12/10/17 16:14 36.9 76 12 173/99 94 12/10/17 16:02 162/88 12/10/17 16:01 37.0 72 16 162/88 100 0.0 12/10/17 15:49 37.2 74 15 170/96 100 0.0 12/10/17 15:47 76 15 100 12/10/17 15:46 170/96 12/10/17 15:17 77 18 93 12/10/17 14:47 79 15 100 12/10/17 14:17 86 12 99 12/10/17 14:16 93 18 152/80 96 Room Air 12/10/17 14:01 152/80 12/10/17 13:47 73 17 100 12/10/17 13:37 82 14 141/72 95 Room Air 12/10/17 13:34 141/72 12/10/17 13:17 85 16 12/10/17 12:47 87 19 12/10/17 12:45 86 12/10/17 12:43 Room Air 12/10/17 12:19 36.5 91 18 199/85 100 Physical Exam General Appearance: no apparent distress, + obese Respiratory/Chest: no respiratory distress, no accessory muscle use Cardiovascular: regular rate, rhythm, no edema, + systolic murmur (+2/6 ejection murmur) Abdomen: normal bowel sounds, non tender, soft Extremities: + pedal edema, + swelling (+2-3 pitting edema b/l LE), + pertinent finding Neurologic/Psychiatric: no motor/sensory deficits, alert, normal mood/affect Laboratory Results Last 24 Hours Test 12/10/17 13:28 12/10/17 18:51 12/10/17 22:22 12/11/17 05:00 White Blood Count 7.91 K/uL 9.34 K/uL Red Blood Count 3.94 M/uL 4.34 M/uL Hemoglobin 5.8 g/dL 8.0 g/dL 7.4 g/dL Hematocrit 22.1 % 28.4 % 26.4 % Mean Corpuscular Volume 56.1 fL 60.8 fL Mean Corpuscular Hemoglobin 14.7 pg 17.1 pg Mean Corpuscular Hemoglobin Concent 26.2 g/dl 28.0 g/dl Platelet Count 252 K/uL 230 K/uL Neutrophils (%) (Auto) 67.0 % 70.3 % Lymphocytes (%) (Auto) 18.6 % 15.3 % Monocytes (%) (Auto) 6.1 % 7.6 % Eosinophils (%) (Auto) 6.6 % 5.7 % Basophils (%) (Auto) 1.4 % 0.9 % Neutrophils # (Auto) 5.31 K/uL 6.57 K/uL Lymphocytes # (Auto) 1.47 K/uL 1.43 K/uL Monocytes # (Auto) 0.48 K/uL 0.71 K/uL Eosinophils # (Auto) 0.52 K/uL 0.53 K/uL Basophils # (Auto) 0.11 K/uL 0.08 K/uL RDW Standard Deviation 43.3 fL 55.4 fL RDW Coefficient of Variation 21.0 % 24.8 % Immature Granulocyte % (Auto) 0.3 % 0.2 % Immature Granulocyte # (Auto) 0.02 K/uL 0.02 K/uL Hypochromasia PRESENT PRESENT Poikilocytosis PRESENT Anisocytosis PRESENT PRESENT Microcytosis PRESENT Absolute Reticulocyte Count 0.06 10^6/uL Percent Reticulocyte Count 1.7 % Prothrombin Time 10.9 SECONDS Prothromb Time International Ratio 1.0 Activated Partial Thromboplast Time 22.5 SECONDS Partial Thromboplastin Ratio 0.9 Sodium Level 135 mmol/L 137 mmol/L Potassium Level 3.9 mmol/L 4.0 mmol/L Chloride Level 104 mmol/L 104 mmol/L Carbon Dioxide Level 25 mmol/L 26 mmol/L Anion Gap 6.0 mmol/L 7.0 mmol/L Blood Urea Nitrogen 8 mg/dl 9 mg/dl Creatinine 0.89 mg/dl 0.93 mg/dl Est Creatinine Clear Calc Drug Dose 129.4 ml/min 122.0 ml/min Estimated GFR () 115.6 110.6 Estimated GFR (Non- 99.7 95.4 BUN/Creatinine Ratio 9.4 9.2 Random Glucose 181 mg/dl 104 mg/dl Calcium Level 8.7 mg/dl 8.7 mg/dl Total Bilirubin 0.5 mg/dl Aspartate Amino Transf (AST/SGOT) 15 U/L Alanine Aminotransferase (ALT/SGPT) 21 U/L Alkaline Phosphatase 83 U/L Total Creatine Kinase 64 U/L Creatine Kinase MB 0.8 ng/ml Creatine Kinase MB Ratio 1.3 Troponin I < 0.015 ng/ml < 0.015 ng/ml < 0.015 ng/ml Total Protein 7.6 gm/dl Albumin 3.6 gm/dl Globulin 4.0 gm/dl Albumin/Globulin Ratio 0.9 Bedside Glucose 104 mg/dl Iron Level 23 mcg/dl Total Iron Binding Capacity 535 mcg/dl Transferrin 417 mg/dl Transferrin % Saturation 4 % Ferritin 2.8 ng/ml Vitamin B12 Level 427 pg/mL Folate 13.61 ng/mL Estimated Average Glucose 171 mg/dl Hemoglobin A1c 7.6 % Thyroid Stimulating Hormone (TSH) 5.910 uIu/ml Free Thyroxine 0.86 ng/dl Test 12/11/17 06:06 12/11/17 06:10 12/11/17 08:23 Bedside Glucose 106 mg/dl Urine Color YELLOW Urine Appearance CLEAR Urine pH 8.5 Urine Specific [place] 1.013 Urine Protein NEG Urine Glucose (UA) NEG Urine Ketones NEG Urine Occult Blood NEG Urine Nitrite NEG Urine Bilirubin NEG Urine Urobilinogen POS Urine Leukocyte Esterase NEG Hemoglobin 7.5 g/dL Hematocrit 27.1 % Assessment and Plan This is a 52 year old male with a PMH of insulin dependent DM2, HTN, HLD, glaucoma, cataracts of eyes, hx. of CVA with minimal residual symptoms, morbid obesity, severe CHARLEEN, hypothyroidism - presents to the ED after being sent over due to having low Hgb on outpatient labs Anemia / s/p two units pRBCs Hgb from 5.8 to 8.0, then down to 7.5 still unsure of the cause will check an echo CT abdomen/pelvis B12, folate wnl iron deficiency pattern FOBT negative 12/10 unknown cause at the moment, possibly secondary to epistaxis? nursing home NSAID use (naproxen) - concern for gastritis Hgb on admission = 5.8, no previous Hgb noted plan for now is to transfuse two units pRBCs - recheck H/H four hours post- transfusion will check iron studies, B12, folate, retic count, stool occult will check UA for any microscopic hematuria pending above results, may need GI input holding aspirin and fish oils Lower Extremity Edema possibly related to lymphedema will check an echo bilateral lower extremity dopplers - negative for DVT Insulin Dependent DM2 will decrease home dose of insulin to Lantus 25 units BID and a sliding scale Ha1c = 7.6%; will need tighter outpatient control HTN holding amlodipine due to lower extremity edema continue Toprol 12.5mg (was started by cardiology today - 12/10) will also give a dose of Vasotec DVT ppx ALLISON chapin, TALHAs FULL CODE
--- NOTE | 2017-12-11 10:48 | DIAGNOSTIC IMAGING REPORT ---
ABDOMEN AND PELVIS CT WITH IV CONTRAST CT DOSE: 1077.42 mGycm HISTORY: Acute anemia with concern for possible GI bleed r/o bleed TECHNIQUE: Multiaxial CT images of the abdomen and pelvis were performed following the use of intravenous contrast. A dose lowering technique was utilized adhering to the principles of ALARA. COMPARISON STUDY: None. FINDINGS: Minimal subsegmental bibasilar atelectasis with areas of mosaic attenuation suggesting some subtle air trapping. There is no pneumatosis or pneumoperitoneum identified. Imaged inferior cardiac chambers appear mildly enlarged. Coronary arterial disease. Liver, gallbladder, spleen, pancreas and adrenal glands are within normal limits. The kidneys, ureters and urinary bladder are unremarkable. Prostate is within normal limits. Mild atherosclerosis of the aorta. No pathologic adenopathy. There is no bowel obstruction or focal bowel wall thickening identified. The appendix is not well-visualized. No secondary signs of acute appendicitis. No retroperitoneal hemorrhage or ascites identified. Small fat filled periumbilical hernia is noted, diastases 2.2 cm. Bones appear intact. Mild facet arthrosis of the lower lumbar spine. IMPRESSION: 1. No acute intra-abdominal or intrapelvic abnormality identified. 2. No bowel obstruction or focal bowel wall thickening identified. 3. Small fat filled periumbilical hernia. Electronically signed by: Cheo Yuan M.D. 12/11/2017 10:47 AM Dictated Date/Time: 12/11/2017 10:37 AM
[2017-12-11 11:07] VITALS: BP 136/64; PULSE 77; TEMP 36.7; O2SAT 100
[2017-12-11] MEDS ORDERED: FUROSEMIDE 20 MG TAB PO STA (13:31)
[2017-12-11] MEDS ORDERED: IRON SUCROSE INJ 100 MG in SODIUM CHLORIDE 0.9% 100ML 100 ML IV SCH (14:00)
[2017-12-11 15:48] VITALS: Ht 162.6 cm; Wt 126.6 kg
[2017-12-11 15:52] LABS: HEMATOCRIT 29.8 % (42-52); HEMOGLOBIN 8.4 g/dL (14.0-18.0)
[2017-12-11 16:11] VITALS: BP 139/75; PULSE 79; TEMP 37.1; O2SAT 98
--- NOTE | 2017-12-11 16:36 | ECHOCARDIOGRAM REPORT ---
*NOTICE TO RECEIVING DEMOCRAT AGENCY This information is strictly Confidential and protected under [place] law. [place] law prohibits you from making any further disclosure of this information unless further disclosure is expressly permitted by the written consent of the person to whom it pertains or is authorized by law. A general authorization for the release of medical or other information is not sufficient for this purpose. Hospital accepts no responsibility if the information is made available to any other person, INCLUDING THE PATIENT. Interpretation Summary * Name: JAYESH VELÁSQUEZ Study Date: 12/11/2017 02:04 PM BP: 136/64 mmHg * Patient Location: 220 HR: 79 * : 1965 (M/d/yyyy) Gender: Male Height: 65 in * Age: 52 yrs Ethnicity: [place] Weight: 304 lb * Referring Physician: DEMARCO * Performed By: Yaima Carvalho RDCS * * Reason For Study: CHEST PAIN * BSA: 2.4 m2 * -- Conclusions -- * Normal LV chamber size with mild concentric LVH. * Normal LV systolic function, EF 55-60%. * No segmental left ventricular wall motion abnormalities are noted. * Grade II diastolic dysfunction. * Aortic valve sclerosis mild, without significant aortic valvular stenosis. * Borderline aortic root dilatation. Procedure Details * A contrast injection of Definity was performed to improve assessment of LV function. * Contrast was injected into an intravenous site in the right arm. * One vial of Definity ultrasound contrast was diluted in normal saline to a total volume of 10 ml. A total of '2' ml of solution was administered during imaging. * Lot # [id number] of Definity utilized for procedure. * Expiration date 1 DEC 01. * The attending nurse who injected the contrast agent was ABBIE MCRAE. Left Ventricle * The left ventricle is normal in size. * There is mild concentric left ventricular hypertrophy. * Ejection Fraction = 55-60%. * Left ventricular systolic function is normal. * No segmental left ventricular wall motion abnormalities are noted. * The left ventricular wall motion is normal. Right Ventricle * The right ventricular cavity size is normal (basal dimension <4.2 cm in right ventricular apical 4-chamber view). * The right ventricular systolic function is normal as assessed by tricuspid annular plane systolic excursion (TAPSE) (normal >1.5 cm). Atria * The left atrium is mildly dilated. * Right atrial size is normal. * No ASD detected; PFO is not assessed. Mitral Valve * The mitral valve is normal in structure and function. Tricuspid Valve * The tricuspid valve is normal in structure and function. Aortic Valve * The aortic valve is trileaflet. * Aortic valve sclerosis mild, without significant aortic valvular stenosis. * There is no significant aortic regurgitation. Pulmonic Valve * The pulmonary valve is not well seen, but the Doppler examination is normal without significant regurgitation or stenosis. Great Vessels * Borderline aortic root dilatation. MMode 2D Measurements and Calculations IVSd 1.0 cm IVSs 1.3 cm LVIDd 4.0 cm LVIDs 2.8 cm LVPWd 1.3 cm LVPWs 1.9 cm IVS/LVPW 0.78 FS 29.1 % EDV(Teich) 70.3 ml ESV(Teich) 30.6 ml EF(Teich) 56.5 % EDV(cubed) 64.3 ml ESV(cubed) 22.9 ml EF(cubed) 64.4 % % IVS thick 22.7 % % LVPW thick 40.8 % LV mass(C)d 160.4 grams LV mass(C)dI 67.9 grams/m\S\2 LV mass(C)s 157.5 grams LV mass(C)sI 66.6 grams/m\S\2 SV(Teich) 39.7 ml SI(Teich) 16.8 ml/m\S\2 SV(cubed) 41.5 ml SI(cubed) 17.5 ml/m\S\2 Ao root diam 4.1 cm Ao root area 13.5 cm\S\2 LA dimension 4.1 cm LA/Ao 0.99 LVAd ap4 44.1 cm\S\2 LVLd ap4 9.5 cm EDV(MOD-sp4) 162.7 ml EDV(sp4-el) 173.4 ml LVAs ap4 26.9 cm\S\2 LVLs ap4 8.1 cm ESV(MOD-sp4) 70.0 ml ESV(sp4-el) 75.3 ml EF(MOD-sp4) 57.0 % EF(sp4-el) 56.6 % LVAd ap2 39.3 cm\S\2 LVLd ap2 10.5 cm EDV(MOD-sp2) 120.7 ml EDV(sp2-el) 125.4 ml LVAs ap2 22.9 cm\S\2 LVLs ap2 8.2 cm ESV(MOD-sp2) 52.4 ml ESV(sp2-el) 54.2 ml EF(MOD-sp2) 56.6 % EF(sp2-el) 56.8 % LVLd %diff 9.2 % EDV(MOD-bp) 141.1 ml LVLs %diff 0.80 % ESV(MOD-bp) 60.4 ml EF(MOD-bp) 57.2 % SV(MOD-sp4) 92.7 ml SI(MOD-sp4) 39.2 ml/m\S\2 SV(MOD-sp2) 68.2 ml SI(MOD-sp2) 28.9 ml/m\S\2 SV(MOD-bp) 80.8 ml SI(MOD-bp) 34.2 ml/m\S\2 SV(sp4-el) 98.1 ml SI(sp4-el) 41.5 ml/m\S\2 SV(sp2-el) 71.2 ml SI(sp2-el) 30.1 ml/m\S\2 Doppler Measurements and Calculations MV E max delano 101.9 cm/sec MV dec time 0.29 sec Ao V2 max 140.6 cm/sec Ao max PG 7.9 mmHg Ao max PG (full) 1.3 mmHg LV V1 max PG 6.6 mmHg LV V1 max 128.5 cm/sec
[2017-12-11] MEDS ORDERED: FERROUS SULFATE 325 MG TAB PO SCH (16:45)
[2017-12-11] MEDS: LATANOPROST 0.005% OP SOLN 2.5 ML BTL OPB SCH (19:50)
[2017-12-11] MEDS: LEVOTHYROXINE 100 MCG TAB PO SCH (19:50)
[2017-12-11] MEDS: ROSUVASTATIN CALCIUM 20 MG TAB PO SCH (19:51)
[2017-12-11 20:47] VITALS: BP 131/74; PULSE 75; TEMP 36.8; O2SAT 96
[2017-12-12 00:07] VITALS: BP 158/93; PULSE 82; TEMP 37.1; O2SAT 96
[2017-12-12 03:50] VITALS: BP 122/72; PULSE 77; TEMP 36.6; O2SAT 93
[2017-12-12 06:19] LABS: HEMOGLOBIN 7.6 g/dL (14.0-18.0); MEAN CORPUSCULAR HEMOGLOBIN 16.9 pg (25-34); MEAN CORPUSCULAR HGB CONC 28.1 g/dl (32-36); PLATELET COUNT 238 K/uL (130-400); RED CELL DISTRIBUTION WIDTH CV 25.1 % (11.5-14.5); RED CELL DISTRIBUTION WIDTH SD 54.1 fL (36.4-46.3); WHITE BLOOD COUNT 8.79 K/uL (4.8-10.8)
[2017-12-12 06:38] LABS: CALCIUM 8.8 mg/dl (8.5-10.1); CREATININE 1.09 mg/dl (0.60-1.40); POTASSIUM 3.9 mmol/L (3.5-5.1)
[2017-12-12 07:47] VITALS: BP 114/68; PULSE 72; TEMP 37.1; O2SAT 94
[2017-12-12] MEDS ORDERED: IRON SUCROSE INJ 100 MG in SODIUM CHLORIDE 0.9% 100ML 100 ML IV ONE (08:15)
[2017-12-12] MEDS: POTASSIUM CHLORIDE 10 MEQ TABCR PO SCH (08:16)
[2017-12-12] MEDS: METOPROLOL SUCC 25MG EXT REL TAB PO SCH (08:16)
[2017-12-12] MEDS: INSULIN ASPART 100 UNITS/ML 3 ML PEN SC SCH ×2 (08:23→11:00)
[2017-12-12] MEDS: INSULIN GLARGINE SOLOSTAR 100 UNITS/ML 3 ML PEN SC SCH (08:24)
[2017-12-12] MEDS ORDERED: FUROSEMIDE 20 MG TAB PO SCH (09:00)
[2017-12-12] MEDS ORDERED: DOCUSATE SODIUM 100 MG CAP PO SCH (09:00)
--- NOTE | 2017-12-12 10:17 | Progress Note ---
Subjective Date of Service: Dec 12, 2017. Subjective Pt evaluation today including: conversation w/ patient, physical exam, lab review, review of studies, review of inpatient medication list Saw/examined the patient in room 220 He's doing well today; no symptoms to note Denies any bleeding/unusual bruising Problem List Medical Problems: (1) Anemia Status: Acute (2) Diab Flores Wo Compl, Type Ii Or Unspec Type, Not Uncntrld Status: Chronic (3) Hyperlipidemia, Unspecified Status: Chronic (4) Hypertension Nos Status: Chronic (5) Hypothyroidism, Unspecified Status: Chronic (6) Obstructive Sleep Apnea (Adult) (Pediatric) Status: Chronic Review of Systems Constitutional: No fever, No chills Respiratory: No shortness of breath Cardiac: + edema, No chest pain, No palpitations Heme: No abnormal bleeding/bruising Medications Current Inpatient Medications Medications (Trade) Dose Ordered Sig/Nick Route Start Time Stop Time Status Last Admin Dose Admin Acetaminophen (Tylenol Tab) 650 mg Q4H PRN PO 12/10/17 17:15 01/09/18 17:14 Ondansetron HCl (Zofran Inj) 4 mg Q6H PRN IV 12/10/17 17:15 01/09/18 17:14 Insulin Glargine (Lantus Solostar Pen) 25 units Q12 SC 12/10/17 21:00 01/09/18 20:59 12/12/17 08:24 25 UNITS Insulin Aspart (novoLOG ASPART) SLIDING SCALE If C... ACHS SC 12/10/17 21:00 01/09/18 20:59 12/12/17 08:23 2 UNITS Glucose (Glucose 40% Gel) 15-30 GRAMS 15 GRAMS... UD PRN PO 12/10/17 17:15 01/09/18 17:14 Glucose (Glucose Chew Tab) 4-8 Tablets 4 Tabl... UD PRN PO 12/10/17 17:15 01/09/18 17:14 Dextrose (Dextrose 50% 50ML Syringe) 25-50ML OF 50% DW IV FOR... UD PRN IV 12/10/17 17:15 01/09/18 17:14 Glucagon (Glucagon Inj) 1 mg UD PRN SQ 12/10/17 17:15 01/09/18 17:14 Latanoprost (Xalatan Oph Soln) 1 drops HS OPB 12/10/17 21:00 01/09/18 20:59 12/11/17 19:50 1 DROPS Levothyroxine Sodium (Synthroid Tab) 100 mcg HS PO 12/10/17 21:00 01/09/18 20:59 12/11/17 19:50 100 MCG Metoprolol Succinate (Toprol Xl Tab) 12.5 mg DAILY PO 12/11/17 09:00 01/10/18 08:59 12/12/17 08:16 12.5 MG Potassium Chloride (Klor-Con M10) 10 meq BID PO 12/10/17 21:00 01/09/18 20:59 12/12/17 08:16 10 MEQ Rosuvastatin Calcium (Crestor Tab) 20 mg QPM PO 12/10/17 21:00 01/09/18 20:59 12/11/17 19:51 20 MG Ioversol (Optiray 320) 100 ml UD PRN IV 12/11/17 09:15 12/15/17 09:14 Ferrous Sulfate (Feosol Tab) 325 mg TIDM PO 12/12/17 11:30 01/10/18 16:44 Furosemide (Lasix Tab) 20 mg QAM PO 12/12/17 09:00 01/11/18 08:59 12/12/17 08:25 20 MG Docusate Sodium (coLACE CAP) 100 mg BID PO 12/12/17 09:00 01/11/18 08:59 12/12/17 08:25 100 MG Objective Vital Signs Date Time Temp Pulse Resp B/P (MAP) Pulse Ox O2 Delivery O2 Flow Rate FiO2 12/12/17 07:47 37.1 72 18 114/68 (83) 94 Room Air 12/12/17 04:00 Room Air 12/12/17 03:50 36.6 77 18 122/72 (89) 93 Room Air 12/12/17 00:07 37.1 82 18 158/93 (114) 96 Room Air 12/12/17 00:00 Room Air 12/11/17 20:47 36.8 75 18 131/74 (93) 96 Room Air 12/11/17 20:00 Room Air 12/11/17 16:11 37.1 79 18 139/75 (96) 98 Room Air 12/11/17 16:00 Room Air 12/11/17 12:00 Room Air 12/11/17 11:07 36.7 77 18 136/64 (88) 100 Room Air Physical Exam General Appearance: no apparent distress Respiratory/Chest: no respiratory distress, no accessory muscle use Cardiovascular: regular rate, rhythm, no murmur Extremities: + pedal edema, + swelling Laboratory Results Last 24 Hours Test 12/11/17 10:56 12/11/17 11:01 12/11/17 15:22 12/11/17 15:55 Troponin I < 0.015 ng/ml Bedside Glucose 157 mg/dl 113 mg/dl Hemoglobin 8.4 g/dL Hematocrit 29.8 % Test 12/11/17 16:59 12/11/17 19:48 12/12/17 05:24 12/12/17 06:29 Troponin I < 0.015 ng/ml Bedside Glucose 137 mg/dl 110 mg/dl White Blood Count 8.79 K/uL Red Blood Count 4.50 M/uL Hemoglobin 7.6 g/dL Hematocrit 27.0 % Mean Corpuscular Volume 60.0 fL Mean Corpuscular Hemoglobin 16.9 pg Mean Corpuscular Hemoglobin Concent 28.1 g/dl RDW Standard Deviation 54.1 fL RDW Coefficient of Variation 25.1 % Platelet Count 238 K/uL Sodium Level 135 mmol/L Potassium Level 3.9 mmol/L Chloride Level 103 mmol/L Carbon Dioxide Level 25 mmol/L Anion Gap 7.0 mmol/L Blood Urea Nitrogen 12 mg/dl Creatinine 1.09 mg/dl Est Creatinine Clear Calc Drug Dose 100.3 ml/min Estimated GFR () 91.2 Estimated GFR (Non- 78.7 BUN/Creatinine Ratio 10.6 Random Glucose 103 mg/dl Calcium Level 8.8 mg/dl Assessment and Plan This is a 52 year old male with a PMH of insulin dependent DM2, HTN, HLD, glaucoma, cataracts of eyes, hx. of CVA with minimal residual symptoms, morbid obesity, severe CHARLEEN, hypothyroidism - presents to the ED after being sent over due to having low Hgb on outpatient labs Iron Deficiency Anemia 3/2 pt is clearly iron deficient unsure of the cause given IV Venofer x2 days will d/c home with ferrous sulfate and Colace outpatient cardiology follow-up for possible Lasix 20mg daily in terms of his cataract surgery, will leave it up to primary care and cardiology as outpatient will decrease dose of aspirin to 162, and with any bleeding will have to stop this 3/ s/p two units pRBCs Hgb from 5.8 to 8.0, then down to 7.5 still unsure of the cause will check an echo CT abdomen/pelvis B12, folate wnl iron deficiency pattern FOBT negative 12/10 unknown cause at the moment, possibly secondary to epistaxis? 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 NSAID use (naproxen) - concern for gastritis Hgb on admission = 5.8, no previous Hgb noted plan for now is to transfuse two units pRBCs - recheck H/H four hours post- transfusion will check iron studies, B12, folate, retic count, stool occult will check UA for any microscopic hematuria pending above results, may need GI input holding aspirin and fish oils Lower Extremity Edema Chronic Diastolic CHF patient with likely underlying lymphedema due to obesity echo with grade II diastolic dysfunction Insulin Dependent DM2 will decrease home dose of insulin to Lantus 25 units BID and a sliding scale Ha1c = 7.6%; will need tighter outpatient control HTN holding amlodipine due to lower extremity edema continue Toprol 12.5mg (was started by cardiology today - 12/10) will also give a dose of Vasotec DVT ppx ALLISON chapin, TALHAs FULL CODE
[2017-12-12] MEDS ORDERED: CLC100 PO (10:22)
[2017-12-12] MEDS ORDERED: LSX20 PO (10:22)
[2017-12-12] MEDS ORDERED: METO-478 PO (10:22)
[2017-12-12] MEDS ORDERED: FRRS300 PO (10:22)
[2017-12-12] MEDS ORDERED: ASPI-461 PO (10:24)
--- NOTE | 2017-12-12 10:35 | Discharge Instructions ---
Discharge Instructions Date of Service Dec 12, 2017. Admission Reason for Admission: Anemia Discharge Discharge Diagnosis / Problem: Iron deficiency anemia, swelling in the legs Discharge Goals Goal(s): Decrease discomfort, Improve function, Diagnostic testing, Therapeutic intervention Activity Recommendations Activity Limitations: resume your previous activity . Instructions / Follow-Up Instructions / Follow-Up Please follow-up with Dr. Mariano on December 15 at 11:25AM * Your anemia, low hemoglobin, is likely due to iron deficiency. You should be on ferrous sulfate (iron tablets) three times daily and take this with Colace ( stool softeners). * Dr. Mariano should recheck your Hgb levels early next week to assure that it remains stable. * I recommended decreasing your aspirin dose from 325mg to 162mg. Stop taking Naproxen and fish oils as these can cause bleeding. * Stop taking amlodipine for blood pressure because this can cause worsening swelling of the legs. Start taking Toprol XL 12.5mg daily for blood pressure instead. * I will start a low dose water pill, Lasix 20mg daily, because of the swelling in the legs. * You should see your primary care doctor and cardiology as an outpatient. You may need a stress test as an outpatient. * Speak with your eye doctor regarding cataract surgery with your low hemoglobin. Current Hospital Diet Patient's current hospital diet: Diabetes Type 2 Diet Discharge Diet Recommended Diet: Diabetes Type 2 Diet Pending Studies Studies pending at discharge: no Laboratory Results Hemoglobin A1c Test 12/11/17 05:00 Range/Units Estimated Average Glucose 171 mg/dl Hemoglobin A1c 7.6 H 4.5-5.6 % Medical Emergencies . Who to Call and When: Medical Emergencies: If at any time you feel your situation is an emergency, please call 911 immediately. . Non-Emergent Contact Non-Emergency issues call your: Primary Care Provider, Platform Power Technician . . "Provider Documentation" section prepared by Jaziel Giles. . VTE Core Measure Inpt VTE Proph given/why not?: SCD's
--- NOTE | 2017-12-12 10:37 | Discharge Summary ---
Discharge Summary Date of Service Dec 12, 2017. Discharge Summary Admission Date: Dec 10, 2017 at 17:13 Discharge Date: Dec 12, 2017 Discharge Disposition: Home Principal Diagnosis: Iron Deficiency Anemia Hx. of CVA Insulin Dependent DM2 HTN Grade 2 Diastolic CHF Medication Reconciliation New Medications: Docusate Sodium (Docusate Sodium) 100 Mg Cap 100 MG PO BID for 30 Days, #60 CAP Ferrous Sulfate (Ferrous Sulfate) 325 Mg Tab 325 MG PO TIDM for 30 Days, #90 TAB Furosemide (Furosemide) 20 Mg Tab 20 MG PO QAM for 30 Days, #30 TAB Changed Medications: Aspirin (Aspirin) 81 Mg Tab 162 MG PO DAILY for 30 Days, #60 TABS (Changed from: Aspirin 325 Mg Tab 325 Mg PO HS) Continued Medications: Albuterol Sulfate (Proair Respiclick) 108 Mcg/Act Aer 2 PUFF INH Q4H PRN for Shortness of Breath Cholecalciferol (Vitamin D) 1,000 Unit Tab 1 TAB PO DAILY Clobetasol Propionate (Clobetasol Propionate) 45 Appln/15 Gm Oint 1 APPLN TOP HS for 30 Days, #60 GM 2 Refills Fiber (Fiber Complete) 62.5 Mg Tab 1 TAB PO QAM Insulin Glargine (Basaglar Kwikpen) 100 Unit/Ml Inj 32 UNIT SC BID Latanoprost (Xalatan 0.005% Oph Blanca) 0.005 % Blanca 1 DROPS OPB HS for 90 Days, #7.5 ML 3 Refills Levothyroxine Sodium (Levothyroxine Sodium) 100 Mcg Tab 1 TAB PO HS for 90 Days, TAB 3 Refills Liraglutide (Victoza) 18 Mg/3 Ml Inj 1.2 MG SC HS Metformin Hcl (Glucophage) 500 Mg Tab 2 TAB PO BID, TAB Metoprolol Succinate (Toprol Xl) 25 Mg Tab 0.5 TAB PO DAILY for 30 Days, #15 TAB 5 Refills (This prescription has been renewed) Multivitamin (Multivitamin) Tab 1 TAB PO QAM, TAB Nystatin (Nystatin Suspension) 1 Ml Susp 1 DOSE PO BID Potassium Chloride (Micro-K Ext Rel) 10 Meq Capcr 10 MEQ PO BID, CAP Rosuvastatin Calcium (Crestor) 20 Mg Tab 20 MG PO QPM, TAB Discontinued Medications: Amlodipine (Norvasc) 10 Mg Tab 10 MG PO HS, TAB Benzonatate (Tessalon Perles) 100 Mg Cap 1-2 CAP PO Q4 PRN for Cough for 5 Days, #60 CAP Fish Oil ([place]-3) 1 Ea Cap 1 CAP PO QAM, CAP Naproxen (Naproxen) 375 Mg Tab 1 TAB PO BID for 30 Days, #60 TAB Admission Information HPI (per Admitting provider): This is a 52 year old male with a PMH of insulin dependent DM2, HTN, HLD, glaucoma, cataracts of eyes, hx. of CVA with minimal residual symptoms, morbid obesity, severe CHARLEEN, hypothyroidism - presents to the ED after being sent over due to having low Hgb on outpatient labs. He is scheduled to have cataract eye surgery and was being seen by primary care and cardiology for pre-op clearance. Was seen by cardiology in the office; started on Toprol by cardiology. Noted to have significant swelling of bilateral lower extremities. States he had some chest pressure/discomfort and mild shortness of breath, so that's why he was sent to the wood grinder for clearance. Otherwise, has no cardiac history. Denies any bleeding history, denies any blood in the stool or urine. States he had an episode of epistaxis earlier this week, but it only lasted a minute or so before stopping on its own. His symptoms include: +chest pressure, +shortness of breath, +weakness, +chills. Physical Exam (per Admitting): General Appearance: no apparent distress, + obese Head: normocephalic, atraumatic Eyes: + pertinent finding (previous surgical changes) ENT: normal ENT inspection, hearing grossly normal Neck: supple Respiratory/Chest: chest non-tender, lungs clear, normal breath sounds, no respiratory distress, no accessory muscle use Cardiovascular: regular rate, rhythm, + systolic murmur (+2/6 systolic ejection murmur on the R second intercostal space) Abdomen/GI: normal bowel sounds, non tender, soft Back: normal inspection, no CVA tenderness, no muscle spasm, normal range of motion Extremities/Musculoskelatal: + pedal edema, + swelling (+2-3 pitting edema bilateral lower extremities) Neurologic/Psych: no motor/sensory deficits, alert, normal mood/affect, oriented x 3 Skin: normal color Lymphatic: no adenopathy Hospital Course This is a 52 year old male with a PMH of insulin dependent DM2, HTN, HLD, glaucoma, cataracts of eyes, hx. of CVA with minimal residual symptoms, morbid obesity, severe CHARLEEN, hypothyroidism - presents to the ED after being sent over due to having low Hgb on outpatient labs Iron Deficiency Anemia 3/2 pt is clearly iron deficient unsure of the cause given IV Venofer x2 days will d/c home with ferrous sulfate and Colace outpatient cardiology follow-up for possible Lasix 20mg daily in terms of his cataract surgery, will leave it up to primary care and cardiology as outpatient will decrease dose of aspirin to 162, and with any bleeding will have to stop this 12/11 s/p two units pRBCs Hgb from 5.8 to 8.0, then down to 7.5 still unsure of the cause will check an echo CT abdomen/pelvis B12, folate wnl iron deficiency pattern FOBT negative 12/10 unknown cause at the moment, possibly 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 NSAID use (naproxen) - concern for gastritis Hgb on admission = 5.8, no previous Hgb noted plan for now is to transfuse two units pRBCs - recheck H/H four hours post- transfusion will check iron studies, B12, folate, retic count, stool occult will check UA for any microscopic hematuria pending above results, may need GI input holding aspirin and fish oils Lower Extremity Edema Chronic Diastolic CHF patient with likely underlying lymphedema due to obesity echo with grade II diastolic dysfunction Insulin Dependent DM2 will decrease home dose of insulin to Lantus 25 units BID and a sliding scale Ha1c = 7.6%; will need tighter outpatient control HTN holding amlodipine due to lower extremity edema continue Toprol 12.5mg (was started by cardiology today - 12/10) will also give a dose of Vasotec DVT ppx ALLISON chapin, Kenneth FULL CODE Total time spent on discharge = 45 minutes This includes examination of the patient, discharge planning, medication reconciliation, and communication with other providers. Discharge Instructions Please follow-up with Dr. Mariano on December 15 at 11:25AM * Your anemia, low hemoglobin, is likely due to iron deficiency. You should be on ferrous sulfate (iron tablets) three times daily and take this with Colace ( stool softeners). * Dr. Mariano should recheck your Hgb levels early next week to assure that it remains stable. * I recommended decreasing your aspirin dose from 325mg to 162mg. Stop taking Naproxen and fish oils as these can cause bleeding. * Stop taking amlodipine for blood pressure because this can cause worsening swelling of the legs. Start taking Toprol XL 12.5mg daily for blood pressure instead. * I will start a low dose water pill, Lasix 20mg daily, because of the swelling in the legs. * You should see your primary care doctor and cardiology as an outpatient. You may need a stress test as an outpatient. * Speak with your eye doctor regarding cataract surgery with your low hemoglobin.
[2017-12-12 11:15] VITALS: BP 114/68; PULSE 72; TEMP 37.1; O2SAT 94
[2017-12-12 11:25] VITALS: BP 124/74; PULSE 71; TEMP 36.6; O2SAT 93
[2017-12-12] MEDS ORDERED: FERROUS SULFATE 325 MG TAB PO SCH (11:30)
== END 2017-12-12 12:10 | disposition home or self-care (01) | DRG 812 ==
LOC: C.EDB 12:19 → C.2T 17:13 → ENRESERV 17:26
PROVIDERS: ADMIT Family Medicine; ATTEND Family Medicine
DX: D50.9 Iron deficiency anemia, unspecified (principal); I11.0 Hypertensive heart disease with heart failure; I50.32 Chronic diastolic (congestive) heart failure; I89.0 Lymphedema, not elsewhere classified; E11.9 Type 2 diabetes mellitus without complications; G47.33 Obstructive sleep apnea (adult) (pediatric); E66.01 Morbid (severe) obesity due to excess calories; Z68.43 Body mass index [BMI] 50.0-59.9, adult; E78.5 Hyperlipidemia, unspecified; E03.9 Hypothyroidism, unspecified; H26.9 Unspecified cataract; H40.9 Unspecified glaucoma; Z86.73 Personal history of transient ischemic attack (TIA), and cerebral infarction without residual deficits; Z79.1 Long term (current) use of non-steroidal anti-inflammatories (NSAID); Z79.4 Long term (current) use of insulin; Z79.82 Long term (current) use of aspirin; Z79.899 Other long term (current) drug therapy; Z88.0 Allergy status to penicillin; Z88.1 Allergy status to other antibiotic agents; Z88.5 Allergy status to narcotic agent; Z80.6 Family history of leukemia; Z83.2 Family history of diseases of the blood and blood-forming organs and certain disorders involving the immune mechanism

== ENCOUNTER 2022-06-13 16:14 | Inpatient (IN) ==
[2022-06-13 16:48] LABS: Basophils # (auto) 0.07 K/uL (0-0.2); Basophils % (auto) 0.8 %; Eosinophils # (auto) 0.36 K/uL (0-0.50); Hematocrit (blood only) 40.1 % (40.1-51.0); Hemoglobin 13.6 g/dl (14.0-18.0); Immature Granulocytes # (auto) 0.03 K/uL (0.00-0.02); Immature Granulocytes % (auto) 0.3 %; Lymphocytes # (auto) 1.11 K/uL (1.2-3.4); Lymphocytes % (auto) 12.2 %; Mean Corpuscular Hemoglobin 27.4 pg (25.0-34.0); Mean Corpuscular Hgb Conc 33.9 g/dL (32.0-36.0); Mean Corpuscular Volume 80.7 fL (80.0-100.0); Mean Platelet Volume 8.8 fL (9.4-12.4); Monocytes # (auto) 0.57 K/uL (0.24-0.82); Monocytes % (auto) 6.3 %; Neutrophils # (auto) 6.93 K/uL (1.4-6.5); Neutrophils % (auto) 76.4 %; Platelet Count 298 K/uL (130-400); RDW Coefficient of Variation 12.7 % (11.5-14.5); RDW Standard Deviation 36.7 fL (36.4-46.3); Red Blood Count 4.97 M/uL (4.63-6.08); White Blood Count 9.07 K/ul (4.8-10.8)
[2022-06-13 17:21] LABS: Albumin Level 3.7 gm/dl (3.4-5.0); BUN Creatinine Ratio 9.4 (10-20); Bilirubin,Total 0.8 mg/dl (0.2-1.0); Calcium 9.3 mg/dl (8.5-10.1); Creatinine Clr Calc Pharmacy 103.7 ml/min; Est GFR (African American) 102.7 ml/min; Est GFR (Non-African American) 88.6 ml/min; Globulin 3.7 gm/dl (2.5-4.0); Potassium 3.9 mmol/L (3.5-5.1); Total Protein 7.4 gm/dl (6.0-8.3)
[2022-06-13] MEDS ORDERED: CLINDAMYCIN/D5W 900 MG/50 ML BAG IV ONE (17:43)
--- NOTE | 2022-06-13 17:50 | Emergency Department Note ---
History of Present Illness General Chief complaint: Skin Problem Stated complaint: REF BY TIFFANI STACY Time Seen by Provider: 06/13/22 17:35 History of Present Illness Maximum Pain Intensity: 4 This is a 57-year-old male that presents to the emergency department via private vehicle with complaints of "referred by Tiffani Flores". The patient notes that over the past 3 weeks he has been noticing what he describes as a boil to the right groin. Patient states that this past Friday he noticed some purulence draining from the area and then Friday some blood was oozing from the region. He notes this is predominantly from the right groin/right lower quadrant region. Patient denies any fevers or chills. Patient does note that he is a diabetic. Patient denies any recent antibiotic use. Home Medications Medication Instructions Recorded Confirmed Type aspirin 81 mg tablet,delayed 162 mg PO DAILY 09/29/21 06/13/22 History release metoprolol succinate 50 mg 50 mg PO DAILY 09/29/21 06/13/22 History tablet,extended release 24 hr rosuvastatin 20 mg tablet 20 mg PO DAILY 09/29/21 06/13/22 History Lactobacillus acidophilus 20 20,000 mmu cells PO DAILY 06/13/22 06/13/22 History billion cell capsule acetaminophen 650 mg 650 mg PO Q8H PRN Pain 06/13/22 06/13/22 History tablet,extended release amlodipine 10 mg tablet 10 mg PO QAM 06/13/22 06/13/22 History clobetasol 0.05 % topical cream 1 applic topical BID PRN Skin 06/13/22 06/13/22 History Irritation famotidine 20 mg tablet 20 mg PO BID 06/13/22 06/13/22 History fluoxetine 20 mg capsule 20 mg PO QAM 06/13/22 06/13/22 History insulin aspart U-100 100 unit/mL 15 unit subcut TIDM 06/13/22 06/13/22 History (3 mL) subcutaneous pen (Novolog Flexpen U-100 Insulin aspart) insulin detemir U-100 100 unit/mL 34 unit subcut HS 06/13/22 06/13/22 History (3 mL) subcutaneous pen (Levemir FlexTouch U-100 Insulin) levothyroxine 175 mcg tablet 175 mcg PO DAILYBB 06/13/22 06/13/22 History melatonin 3 mg tablet 3 mg PO HS 06/13/22 06/13/22 History semaglutide 2 mg/dose (8 mg/3 mL) 0.75 mg subcut WK 06/13/22 06/13/22 History subcutaneous pen injector (Ozempic) tadalafil 5 mg tablet (Cialis) 5 mg PO DAILY 06/13/22 06/13/22 History Allergies Allergy/AdvReac Type Severity Reaction Status Date / Time doxycycline Allergy Intermediate HIVES Verified 06/13/22 18:39 Penicillins Allergy Intermediate RASH Verified 06/13/22 18:39 Macrolide Antibiotics Allergy Unknown UNKNOWN Verified 06/13/22 18:39 morphine AdvReac Intermediate GI UPSET Verified 06/13/22 18:39 Past Med/Surg History Medical History CHF (congestive heart failure) Cholangitis concurrent with and due to calculus of gallbladder Diabetes Hyperlipidemia, unspecified Hypertension Hypothyroidism, unspecified Morbid obesity with BMI of 50.0-59.9, adult Obstructive sleep apnea (adult) (pediatric) Pancreatitis Unspecified cerebral artery occlusion with cerebral infarction Social History Smoking Status: Never smoker Preferred Language: Italian Feels Safe at Home: Yes Review of Systems A total of 10 systems reviewed and were otherwise negative Physical Exam Vital Signs Vital Signs - 24 hr 06/13/22 16:23 06/13/22 17:44 06/13/22 17:44 Temperature 36.8 C Temperature Source Temporal Artery Scan Oral Pulse Rate 102 H Pulse Rate [Apical] 70 Pulse Rate from SpO2 Sensor Pulse Rhythm Pulse Rhythm [Apical] Regular Pulse Strength [Apical] Normal Respiratory Rate 20 19 Respiratory Effort / Characteristics Non-Labored Spontaneous Non-Labored Non-Labored Spontaneous Respiratory Depth Normal Normal Respiratory Pattern Regular Regular Blood Pressure 183/97 H Blood Pressure Mean 125 Pulse Oximetry 95 97 98 Oxygen Delivery Method Room Air Room Air Room Air Sepsis Recent Fever Within 48 Hours No Sepsis New/Unexplained Change in Mental Status No Sepsis Action Taken by Nursing No Action Required 06/13/22 17:44 06/13/22 19:19 06/13/22 19:30 Temperature Temperature Source Pulse Rate 70 84 87 Pulse Rate [Apical] Pulse Rate from SpO2 Sensor 83 87 Pulse Rhythm Regular Pulse Rhythm [Apical] Pulse Strength [Apical] Respiratory Rate 19 19 19 Respiratory Effort / Characteristics Respiratory Depth Respiratory Pattern Blood Pressure 159/93 H 177/99 H Blood Pressure Mean 115 125 Pulse Oximetry 98 99 95 Oxygen Delivery Method Room Air Room Air Room Air Sepsis Recent Fever Within 48 Hours Sepsis New/Unexplained Change in Mental Status Sepsis Action Taken by Nursing VITAL SIGNS - Vital signs and nursing notes were reviewed. Stable and afebrile. GENERAL -57-year-old male appearing his stated age who is in no acute distress. Communicates well with provider and answers questions appropriately. SKIN -consent was obtained and the groin area was inspected. Left groin region unremarkable. To the right inguinal region there is a soft tissue mass like structure with a central region of scab/darkened tissue. Minimal drainage noted but no true purulence. No bleeding. There is erythema present throughout this area extending into the groin region. No crepitus to this region. HEAD - NC/AT. EYES - Sclera anicteric. LUNGS - Chest wall symmetric without accessory muscle use, intercostals retractions, or central cyanosis. Normal vesicular breath sounds CTA B/L. No wheezes, rales, or rhonchi appreciated. CARDIAC - RRR with S1/S2. No murmur, rubs, or gallops appreciated. ABDOMEN - Abdominal contour normal without pulsations or visible masses other than the soft tissue wound as noted above. BS normoactive all four quadrants. No tenderness, palpable masses, hepatosplenomegaly, or ascites noted. EXTREMITIES - No clubbing or peripheral cyanosis. NEUROLOGIC - Cranial nerves II through XII grossly intact. PSYCH - A&O, and cooperates fully with examiner. Pt is very pleasant and interacts well with examiner. Course Administered Medications Lactated Ringer's (Lr) 1,000 mls @ 80 mls/hr IV .[id number] [facility] Stop: 07/14/22 20:44 Last Admin: 06/13/22 23:13 Dose: 80 mls/hr Documented By: RODRIGUEZ Metronidazole (Flagyl) 500 mg in 100 mls @ 100 mls/hr IV Q8H [facility] Stop: 06/15/22 21:59 Last Admin: 06/13/22 22:44 Dose: 100 mls/hr Documented By: HIRAM Insulin Aspart (Insulin Aspart Per Unit) 0 units SC ACHS [facility] Stop: 07/13/22 21:44 Last Admin: 06/13/22 21:55 Dose: 7 units Documented By: HIRAM Co-signed By: LENNOX Discontinued Medications Amlodipine Besylate (Amlodipine Besylate 5 Mg Tab) 10 mg PO NOW ONE Stop: 06/13/22 20:34 Last Admin: 06/13/22 21:48 Dose: 10 mg Documented By: HIRAM Clindamycin Phosphate (Cleocin/D5w) 900 mg in 50 mls @ 100 mls/hr IV NOW ONE Stop: 06/13/22 18:12 Last Admin: 06/13/22 19:33 Dose: Not Given Documented By: HIRAM Sodium Chloride (Nss 1000ml) 1,000 mls @ 999 mls/hr IV .Q1H1M [facility] Stop: 06/13/22 19:00 Last Infusion: 06/13/22 21:58 Dose: 0 mls/hr Documented By: Admin: 06/13/22 18:00 Dose: 999 mls/hr Documented By: GABBI Daptomycin 325 mg/ Syringe 6.5 mls @ 3.25 mls/min IV NOW STA; Protocol Stop: 06/13/22 17:55 Last Admin: 06/13/22 18:09 Dose: Not Given Documented By: GABBI Daptomycin 325 mg/ Syringe 6.5 mls @ 3.25 mls/min IV NOW STA; Protocol Stop: 06/13/22 18:36 Last Admin: 06/13/22 19:33 Dose: 3.25 mls/min Documented By: HIRAM Ioversol (Optiray 300 100ml) 93 ml IV ONCE ONE Stop: 06/13/22 19:10 Last Admin: 06/13/22 19:16 Dose: 93 ml Documented By: VTTaryn Medical Decision Making Laboratory Data Result diagrams: 06/13/22 16:40 06/13/22 16:40 Lab Results 06/13/22 06/13/22 06/13/22 Range/Units 16:40 16:40 16:40 WBC 9.07 (4.8-10.8) K/ul RBC 4.97 (4.63-6.08) M/uL Hgb 13.6 L (14.0-18.0) g/dl Hct 40.1 (40.1-51.0) % MCV 80.7 (80.0-100.0) fL MCH 27.4 (25.0-34.0) pg MCHC 33.9 (32.0-36.0) g/dL RDW Std Deviation 36.7 (36.4-46.3) fL RDW Coeff of Oziel 12.7 (11.5-14.5) % Plt Count 298 (130-400) K/uL MPV 8.8 L (9.4-12.4) fL Immature Gran % (Auto) 0.3 % Neut % (Auto) 76.4 % Lymph % (Auto) 12.2 % Laurens % (Auto) 6.3 % Eos % (Auto) 4.0 % Baso % (Auto) 0.8 % Neut # (Auto) 6.93 H (1.4-6.5) K/uL Lymph # (Auto) 1.11 L (1.2-3.4) K/uL Laurens # (Auto) 0.57 (0.24-0.82) K/uL Eos # (Auto) 0.36 (0-0.50) K/uL Baso # (Auto) 0.07 (0-0.2) K/uL Immature Gran # (Auto) 0.03 H (0.00-0.02) K/uL PT (9.0-12.0) Seconds INR (0.9-1.1) APTT (21.0-31.0) Seconds PTT Ratio Sodium 129 L (136-145) mmol/L Potassium 3.9 (3.5-5.1) mmol/L Chloride 95 L (98-107) mmol/L Carbon Dioxide 24 (21-32) mmol/L Anion Gap 10 (3-11) BUN 9 (6-23) mg/dl Creatinine 0.96 (0.6-1.4) mg/dl Est Cr Clr Drug Dosing 103.7 ml/min Est GFR ( Amer) 102.7 ml/min Est GFR (Non-Af Amer) 88.6 ml/min BUN/Creatinine Ratio 9.4 L (10-20) Glucose 327 H* (70-99(Fasting)) mg/dl Lactate (0.4-2.0) mmol/L Calcium 9.3 (8.5-10.1) mg/dl Magnesium (1.7-2.4) mg/dl Total Bilirubin 0.8 (0.2-1.0) mg/dl AST 12 L (13-39) U/L ALT 13 (7-52) U/L Alkaline Phosphatase 119 H (34-104) U/L Total Protein 7.4 (6.0-8.3) gm/dl Albumin 3.7 (3.4-5.0) gm/dl Globulin 3.7 (2.5-4.0) gm/dl Albumin/Globulin Ratio 1.0 (0.9-2) Procalcitonin 0.22 (0-0.5) ng/ml 06/13/22 06/13/22 06/13/22 Range/Units 16:40 19:58 19:58 WBC (4.8-10.8) K/ul RBC (4.63-6.08) M/uL Hgb (14.0-18.0) g/dl Hct (40.1-51.0) % MCV (80.0-100.0) fL MCH (25.0-34.0) pg MCHC (32.0-36.0) g/dL RDW Std Deviation (36.4-46.3) fL RDW Coeff of Oziel (11.5-14.5) % Plt Count (130-400) K/uL MPV (9.4-12.4) fL Immature Gran % (Auto) % Neut % (Auto) % Lymph % (Auto) % Laurens % (Auto) % Eos % (Auto) % Baso % (Auto) % Neut # (Auto) (1.4-6.5) K/uL Lymph # (Auto) (1.2-3.4) K/uL Laurens # (Auto) (0.24-0.82) K/uL Eos # (Auto) (0-0.50) K/uL Baso # (Auto) (0-0.2) K/uL Immature Gran # (Auto) (0.00-0.02) K/uL PT 11.2 (9.0-12.0) Seconds INR 1.1 (0.9-1.1) APTT 32.5 H (21.0-31.0) Seconds PTT Ratio 1.2 Sodium (136-145) mmol/L Potassium (3.5-5.1) mmol/L Chloride (98-107) mmol/L Carbon Dioxide (21-32) mmol/L Anion Gap (3-11) BUN (6-23) mg/dl Creatinine (0.6-1.4) mg/dl Est Cr Clr Drug Dosing ml/min Est GFR ( Amer) ml/min Est GFR (Non-Af Amer) ml/min BUN/Creatinine Ratio (10-20) Glucose (70-99(Fasting)) mg/dl Lactate 0.8 (0.4-2.0) mmol/L Calcium (8.5-10.1) mg/dl Magnesium 1.9 (1.7-2.4) mg/dl Total Bilirubin (0.2-1.0) mg/dl AST (13-39) U/L ALT (7-52) U/L Alkaline Phosphatase (34-104) U/L Total Protein (6.0-8.3) gm/dl Albumin (3.4-5.0) gm/dl Globulin (2.5-4.0) gm/dl Albumin/Globulin Ratio (0.9-2) Procalcitonin (0-0.5) ng/ml Imaging Data Radiologist's Impression: Abdomen/Pelvis CT 06/13/22 17:[address] WITH IV CONTRAST CT DOSE: 1815.86 mGy.cm HISTORY: lower abd infection/groin infection TECHNIQUE: Multiaxial CT images of the abdomen and pelvis were performed following the use of intravenous contrast. A dose lowering technique was utilized adhering to the principles of ALARA. COMPARISON STUDY: Abdomen and pelvis CT 09/29/2021. FINDINGS: The lung bases are clear. No pneumoperitoneum. No pneumatosis. No suspicious lytic or blastic osseous lesions. Trace pneumobilia which is likely due to the common bile duct stent which appears in good position. No intrahepatic bile duct dilatation. There are few punctate stones within the gallbladder. No significant gallbladder wall thickening. Minimal pericholecystic inflammatory change has almost completely resolved in the interval. The spleen, adrenal glands, pancreas, and kidneys are within normal limits. No ureteral stones or hydronephrosis. The bladder is unremarkable. The prostate gland is normal in size. No retroperitoneal lymphadenopathy. Mild calcified plaque within the normal caliber abdominal aorta. The main portal vein is patent. Small fat- containing umbilical hernia. No bowel wall thickening or obstruction. Normal appendix. Mild bilateral perinephric edema, unchanged. There is skin thickening and subcutaneous fat stranding within the right inguinal region. This likely represents a cellulitis. Small amount of ill-defined subcutaneous fluid at this location may represent a phlegmon. No loculated fluid collections to suggest an abscess at this time. No soft tissue gas identified. IMPRESSION: 1. There is skin thickening and subcutaneous fat stranding within the right inguinal region. This likely represents a cellulitis. Small amount of ill-defined subcutaneous fluid at this location may represent a phlegmon. No loculated fluid collections to suggest an abscess at this time. No soft tissue gas identified. 2. A common bile duct stent appears in good position. There is trace pneumobilia identified. 3. No significant gallbladder wall thickening. Minimal pericholecystic inflammatory change has almost completely resolved in the interval. 4. Additional findings as described above. ACT 112: Negative or not required by law. Electronically signed by: Danilo Luna M.D. 06/13/2022 7:24 PM MDM Narrative Patient was seen and evaluated as above in room C05. Review was performed of nursing notes and vital signs. I did review pertinent previous visits and patient history. After obtaining a thorough history and physical examination the above work up was performed. Patient presents to us today with an infection to the right groin region. He clinically appears well and nontoxic and vital signs are stable. The infection developing now in the right groin area does not have any crepitus but is concerning for cellulitis with potential abscess. Options of care were discussed with the patient. IV access was established. Labs are drawn. There is no leukocytosis. There is anemia noted with hemoglobin of 13.6. Hyponatremia 129. No evidence of kidney failure. Glucose 327. Pro-[place] 0.22. COVID-negative. CT scan was obtained of the abdomen and pelvis. Results as above. There is skin thickening and subcutaneous fat stranding within the right inguinal region. This likely represents a cellulitis which I would agree with clinically. They do comment on ill-defined subcutaneous fluid at this location and may represent phlegmon. No findings to suggest abscess by CT. The patient at this time I do believe would benefit from inpatient management and IV antibiotics. I had initially ordered IV clindamycin however working closely with our pharmacy staff and review of the local antibiogram it does appear the daptomycin will provide better coverage. This was then added and the clindamycin was canceled. Case discussed with the hospitalist service. He will be admitted for further evaluation and management. Please refer to further documentation regarding his stay. Patient amenable to plan of care. Case was discussed with the attending physician. GCS: 15 In the evaluation and treatment of this patient the following differential diagnoses were entertained: Cellulitis, abscess, Traci's gangrene, phlegmon, necrotizing fasciitis, hernia, ischemia, among others. Impression & Plan Cellulitis, Hyponatremia Discharge Plan Visit Data Chief Complaint: Skin Problem Stated Complaint: REF BY TIFFANI STACY ED Provider: Shakir Tierney ED Midlevel Provider: Choco Bacon Discharge Problem: Cellulitis, Hyponatremia Patient Disposition: Admitted As Inpatient Condition: Good Discharge Instructions Interventions: ED Discharge Assessment Last Done: 06/13/22 22:34
[2022-06-13] MEDS ORDERED: DAPTOmycin 325 MG in SYRINGE 0 ML IV STA ×2 (17:54→18:35)
[2022-06-13] MEDS ORDERED: SODIUM CHLORIDE 0.9% 1000ML 1,000 ML IV SCH (18:00)
[2022-06-13] MEDS ORDERED: OPTIRAY 300 100mL IV ONE (19:09)
--- NOTE | 2022-06-13 19:27 | CT Scan Report ---
ABDOMEN AND PELVIS CT WITH IV CONTRAST CT DOSE: 1815.86 mGy.cm HISTORY: lower abd infection/groin infection TECHNIQUE: Multiaxial CT images of the abdomen and pelvis were performed following the use of intrave nous contrast. A dose lowering technique was utilized adhering to the principles of ALARA. COMPARISON STUDY: Abdomen and pelvis CT 09/29/2021. FINDINGS: The lung bases are clear. No pneumoperitoneum. No pneumatosis. No suspicious lytic or blast ic osseous lesions. Trace pneumobilia which is likely due to the common bile duct stent which appears in good position. No intrahepatic bile duct dilatation. There are few punctate stones within the gal lbladder. No significant gallbladder wall thickening. Minimal pericholecystic inflammatory change has almost completely resolved in the interval. The spleen, adrenal glands, pancreas, and kidneys are wi thin normal limits. No ureteral stones or hydronephrosis. The bladder is unremarkable. The prostate g land is normal in size. No retroperitoneal lymphadenopathy. Mild calcified plaque within the normal c aliber abdominal aorta. The main portal vein is patent. Small fat-containing umbilical hernia. No bow el wall thickening or obstruction. Normal appendix. Mild bilateral perinephric edema, unchanged. Ther e is skin thickening and subcutaneous fat stranding within the right inguinal region. This likely rep resents a cellulitis. Small amount of ill-defined subcutaneous fluid at this location may represent a phlegmon. No loculated fluid collections to suggest an abscess at this time. No soft tissue gas iden tified. IMPRESSION: 1. There is skin thickening and subcutaneous fat stranding within the right inguinal region. This li david represents a cellulitis. Small amount of ill-defined subcutaneous fluid at this location may rep resent a phlegmon. No loculated fluid collections to suggest an abscess at this time. No soft tissue gas identified. 2. A common bile duct stent appears in good position. There is trace pneumobilia identified. 3. No significant gallbladder wall thickening. Minimal pericholecystic inflammatory change has almost completely resolved in the interval. 4. Additional findings as described above. ACT 112: Negative or not required by law. Electronically signed by: Danilo Luna M.D. 06/13/2022 7:24 PM
[2022-06-13] MEDS ORDERED: POLYETHYLENE (MIRALAX) 17 GM PACK PO PRN (20:16)
[2022-06-13] MEDS ORDERED: amLODIPine BESYLATE 5 MG TAB PO ONE (20:33)
[2022-06-13] MEDS ORDERED: GLUCAGON FOR INJ 1 MG VIAL SQ PRN (20:38)
[2022-06-13] MEDS ORDERED: CARBOHYDRATES FOR HYPOGLYCEMIA PO PRN (20:38)
[2022-06-13] MEDS ORDERED: PHARMACY GLYCEMIC MGMT CONSULT PRN (20:38)
[2022-06-13] MEDS ORDERED: GLUCOSE 10 TAB/TUBE PO PRN (20:38)
[2022-06-13] MEDS ORDERED: DEXTROSE 50% 50 ML SYRINGE IV PRN (20:38)
[2022-06-13] MEDS ORDERED: GLUCOSE 40% GEL 15 GM TUBE PO PRN (20:38)
[2022-06-13 20:40] LABS: INR 1.1 (0.9-1.1); Partial Thromboplastin Ratio 1.2; Partial Thromboplastin Time 32.5 Seconds (21.0-31.0); Prothrombin Time 11.2 Seconds (9.0-12.0)
--- NOTE | 2022-06-13 20:51 | History & Physical Report ---
Date of Service June 13, 2022 Assessment & Plan (1) Cellulitis: Plan: - right inguinal area with erythema, swelling, drainage - CT-AP with contrast without discrete fluid collection - given degree of swelling and drainage, Gen surg consult obtained - will monitor on abx for now, reassess in AM - no surgical intervention at this time - started on daptomycin in ED - will continue daptomycin for now pending further assessment - likely to be discharged on PO abx pending surgical reevaluation - IVF for maintenance - med/surg admission (2) DM2 (diabetes mellitus, type 2): Plan: - hyperglycemic on admission to >300s - likely in the setting of infection and not taking any medications today, including insulin - will continue on home levemir 34 units qhs - SSI for now - takes novolog 15 units TID with meals - FSG AC+HS - adjust insulin as needed (3) Hyponatremia: Plan: - Na 129 on admission with corrected for BG to 133 - likely in the setting of infection and dehydration - has been present in past admissions - ?SIADH in the setting of fluoxetine use - s/p IVF in ED - continue LR for now given evidence of dehydration - consider free water fluid restriction after IVF resuscitation - monitor on morning BMP (4) Hypothyroidism, unspecified: Plan: - continue levothyroxine - AM TSH (5) HTN (hypertension): Plan: - elevated BP in ED likely due to pain and not taking any medications today - restart BP medications (6) Hyperlipidemia, unspecified: Plan: - continue statin (7) Depression: Plan: - no SI/HI - continue fluoxetine (8) Morbid obesity: Plan: - BMI >40 - noted (9) History of CVA (cerebrovascular accident): Plan: - in 2007 without residual deficits - continue ASA, statin Plan DVT ppx: Lovenox Code Status: Full Code Dispo: Med/surg Asher Danielle MD Hospital Medicine Admission and Anticipated Discharge Date Admission Date: 06/13/2022 History of Present Illness Chief Complaint: right groin swelling, redness Primary Care Provider: Jennifer Jimenez DO The patient is a 57 year old man with pmh DM2, HTN, h/o CVA (2007 without residual deficits), depression/binge eating disorder, hypothyroidism, recent h/o cholangitis s/p stent placement 09/2021 who presented with 3 weeks of worsening right groin swelling, erythema, drainage. He reports that he first noticed a "boil" developing but did not try to manipulate it or drain it. He says it continued to get bigger until it started draining white contents/pus, subsequently draining blood until presentation. He denies any recent procedures or wounds in this area or other areas. He denies fever or chills, n/v/d, abdominal pain, cough, chest pain, shortness of breath. He lives alone with his cat. Denies drinking alcohol or tobacco or drug use. He reports not taking any medications on day of presentation. Has also been applying OTC topical abx to the wound. He rpports not change in appetite. In the ED, vitals were significant for elevated BP, HR initially at 102. Labs were significant for BG >300, hgb 13.6 (?baseline), Na 129 (corrected for BG 133). CT-AP showed cellulitic changes in right groin without fluid collection to suggest abscess. He was given daptomycin and admitted to medicine. Allergies Allergy/AdvReac Type Severity Reaction Status Date / Time doxycycline Allergy Intermediate HIVES Verified 06/13/22 18:39 Penicillins Allergy Intermediate RASH Verified 06/13/22 18:39 Macrolide Antibiotics Allergy Unknown UNKNOWN Verified 06/13/22 18:39 morphine AdvReac Intermediate GI UPSET Verified 06/13/22 18:39 Home Medications Medication Instructions Recorded Confirmed Type aspirin 81 mg tablet,delayed 162 mg PO DAILY 09/29/21 06/13/22 History release metoprolol succinate 50 mg 50 mg PO DAILY 09/29/21 06/13/22 History tablet,extended release 24 hr rosuvastatin 20 mg tablet 20 mg PO DAILY 09/29/21 06/13/22 History Lactobacillus acidophilus 20 20,000 mmu cells PO DAILY 06/13/22 06/13/22 History billion cell capsule acetaminophen 650 mg 650 mg PO Q8H PRN Pain 06/13/22 06/13/22 History tablet,extended release amlodipine 10 mg tablet 10 mg PO QAM 06/13/22 06/13/22 History clobetasol 0.05 % topical cream 1 applic topical BID PRN Skin 06/13/22 06/13/22 History Irritation famotidine 20 mg tablet 20 mg PO BID 06/13/22 06/13/22 History fluoxetine 20 mg capsule 20 mg PO QAM 06/13/22 06/13/22 History insulin aspart U-100 100 unit/mL 15 unit subcut TIDM 06/13/22 06/13/22 History (3 mL) subcutaneous pen (Novolog Flexpen U-100 Insulin aspart) insulin detemir U-100 100 unit/mL 34 unit subcut HS 06/13/22 06/13/22 History (3 mL) subcutaneous pen (Levemir FlexTouch U-100 Insulin) levothyroxine 175 mcg tablet 175 mcg PO DAILYBB 06/13/22 06/13/22 History melatonin 3 mg tablet 3 mg PO HS 06/13/22 06/13/22 History semaglutide 2 mg/dose (8 mg/3 mL) 0.75 mg subcut WK 06/13/22 06/13/22 History subcutaneous pen injector (Ozempic) tadalafil 5 mg tablet (Cialis) 5 mg PO DAILY 06/13/22 06/13/22 History Past Med/Surg History Medical History (Updated 06/13/22 @ 21:14 by Asher Danielle MD) CHF (congestive heart failure) Cholangitis concurrent with and due to calculus of gallbladder Diabetes Hyperlipidemia, unspecified Hypertension Hypothyroidism, unspecified Morbid obesity with BMI of 50.0-59.9, adult Obstructive sleep apnea (adult) (pediatric) Pancreatitis Unspecified cerebral artery occlusion with cerebral infarction Social History Smoking Status: Never smoker Preferred Language: Cymro Feels Safe at Home: Yes Review of Systems Review of Systems: All systems reviewed & are unremarkable except as noted in Subjective Physical Exam Constitutional: WD/WN, vitals as above + morbidly obese; no acute distress Eyes: PERRL, conjunctivae normal, anicteric sclerae ENMT: external ear and nose normal, oropharynx normal Mouth: + dry oral mucous membranes Neck: trachea midline, no thyromegaly Respiratory: normal respiratory effort, lungs clear to auscultation Cardiovascular: RRR, no murmur, no edema Gastrointestinal (Abdomen): normal bowel sounds, soft, nontender, no hepatosplenomegaly Musculoskeletal: no cyanosis or clubbing, extremities motor strength 5/5 Neurologic: patellar DTR's 2+ bilat, sensation intact and PERRL, EOMI, accommodation nl, no face palsy, no dysarthria Psychiatric: A+Ox3, euthymic affect Genitourinary: right inguinal swelling and erythema with round, mass like ?fluid collection with drainage of white contents on palpation, erythema in plaques in folds of pannus on right side. Erhtyema extends to the suprapubic region and right side of superior aspect of scrotum. Results & Data Results & Data ([facility]) Vital Signs (Past 12 Hours) Vital Signs Temp Pulse Pulse Resp BP Pulse Ox O2 Del Method 06/13/22 19:30 87 19 177/99 H 95 Room Air 06/13/22 19:19 84 19 159/93 H 99 Room Air 06/13/22 17:44 70 19 98 Room Air 06/13/22 17:44 98 Room Air 06/13/22 17:44 70 19 97 Room Air 06/13/22 16:23 36.8 C 102 H 20 183/97 H 95 Room Air Laboratory Results Short CBC 06/13/22 Range/Units 16:40 WBC 9.07 (4.8-10.8) K/ul Hgb 13.6 L (14.0-18.0) g/dl Hct 40.1 (40.1-51.0) % Plt Count 298 (130-400) K/uL BMP 06/13/22 16:40 Sodium 129 L Potassium 3.9 Chloride 95 L Carbon Dioxide 24 BUN 9 Creatinine 0.96 Glucose 327 H* Calcium 9.3 Liver Function 06/13/22 Range/Units 16:40 Total Bilirubin 0.8 (0.2-1.0) mg/dl AST 12 L (13-39) U/L ALT 13 (7-52) U/L Alkaline Phosphatase 119 H (34-104) U/L Albumin 3.7 (3.4-5.0) gm/dl Diagnostic Findings Abdomen/Pelvis CT 06/13/22 17:[address] WITH IV CONTRAST CT DOSE: 1815.86 mGy.cm HISTORY: lower abd infection/groin infection TECHNIQUE: Multiaxial CT images of the abdomen and pelvis were performed following the use of intravenous contrast. A dose lowering technique was utilized adhering to the principles of ALARA. COMPARISON STUDY: Abdomen and pelvis CT 09/29/2021. FINDINGS: The lung bases are clear. No pneumoperitoneum. No pneumatosis. No suspicious lytic or blastic osseous lesions. Trace pneumobilia which is likely due to the common bile duct stent which appears in good position. No intrahepatic bile duct dilatation. There are few punctate stones within the gallbladder. No significant gallbladder wall thickening. Minimal pericholecystic inflammatory change has almost completely resolved in the interval. The spleen, adrenal glands, pancreas, and kidneys are within normal limits. No ureteral stones or hydronephrosis. The bladder is unremarkable. The prostate gland is normal in size. No retroperitoneal lymphadenopathy. Mild calcified plaque within the normal caliber abdominal aorta. The main portal vein is patent. Small fat- containing umbilical hernia. No bowel wall thickening or obstruction. Normal nic endix. Mild bilateral perinephric edema, unchanged. There is skin thickening and subcutaneous fat stranding within the right inguinal region. This likely represents a cellulitis. Small amount of ill-defined subcutaneous fluid at this location may represent a phlegmon. No loculated fluid collections to suggest an abscess at this time. No soft tissue gas identified. IMPRESSION: 1. There is skin thickening and subcutaneous fat stranding within the right inguinal region. This likely represents a cellulitis. Small amount of ill- defined subcutaneous fluid at this location may represent a phlegmon. No loculated fluid collections to suggest an abscess at this time. No soft tissue gas identified. 2. A common bile duct stent appears in good position. There is trace pneumobilia identified. 3. No significant gallbladder wall thickening. Minimal pericholecystic inflammatory change has almost completely resolved in the interval. 4. Additional findings as described above. ACT 112: Negative or not required by law. Electronically signed by: Danilo Luna M.D. 06/13/2022 7:24 PM Medications Administered Current Inpatient Medications Acetaminophen (Acetaminophen 325 Mg Tab) 650 mg PO Q4H PRN PRN Reason: pain/fever Stop: 07/13/22 20:15 Amlodipine Besylate (Amlodipine Besylate 5 Mg Tab) 10 mg PO QAM [facility] Stop: 07/14/22 08:59 Aspirin (Aspirin 81 Mg Ectab) 81 mg PO QAM [facility] Stop: 07/14/22 08:59 Dextrose (Dextrose 50% 50 Ml Syringe) 25 - 50 ml IV UD PRN; Protocol PRN Reason: Hypoglycemia Protocol Stop: 07/13/22 20:37 Enoxaparin Sodium (Enoxaparin Inj 40 Mg/0.4 Ml Syr) 40 mg SQ Q12H [facility] Stop: 07/14/22 08:59 Fluoxetine HCl (Fluoxetine Hcl 20 Mg Cap) 20 mg PO QAM [facility] Stop: 07/14/22 08:59 Glucagon (Glucagon For Inj 1 Mg Vial) 1 mg SQ UD PRN; Protocol PRN Reason: Hypoglycemia Protocol Stop: 07/13/22 20:37 Glucose (Glucose 40% Gel 15 Gm Tube) 15 - 30 gm PO UD PRN; Protocol PRN Reason: Hypoglycemia Protocol Stop: 07/13/22 20:37 Glucose (Glucose 10 Tab/Tube) 4 - 8 tab PO UD PRN; Protocol PRN Reason: Hypoglycemia Treatment Stop: 07/13/22 20:37 Lactated Ringer's (Lr) 1,000 mls @ 80 mls/hr IV .[id number] [facility] Stop: 07/14/22 20:44 Daptomycin 500 mg/ Syringe 10 mls @ 5 mls/min IV DAILY [facility]; Protocol Stop: 06/16/22 16:59 Insulin Aspart (Insulin Aspart Per Unit) 0 units SC ACHS [facility] Stop: 07/13/22 20:59 Insulin Detemir (Insulin Detemir Flexpen/Flex Touch 100 Units/Ml 3ml) 34 units SC HS [facility] Stop: 07/13/22 20:59 Levothyroxine Sodium (Levothyroxine Sodium 175 Mcg Tablet) 175 mcg PO DAILYBB [facility] Stop: 07/14/22 06:29 Metoprolol Succinate (Metoprolol Succ 50mg Ext Rel Tab) 50 mg PO QAM [facility] Stop: 07/14/22 08:59 Miscellaneous (Carbohydrates For Hypoglycemia ) 15 - 30 gm PO UD PRN PRN Reason: Hypoglycemia Protocol Stop: 07/13/22 20:37 Miscellaneous Information (Pharmacy Glycemic Mgmt Consult) 1 each N/A UD PRN PRN Reason: Consult Stop: 07/13/22 20:37 Polyethylene Glycol (Polyethylene (Miralax) 17 Gm Pack) 17 gm PO DAILY PRN PRN Reason: Constipation Stop: 07/13/22 20:15 Rosuvastatin Calcium (Rosuvastatin Calcium 20 Mg Tab) 20 mg PO QAM [facility] Stop: 07/14/22 08:59 Code Status & VTE Plan Code Status Full Code VTE Prophylaxis Plan VTE Prophylaxis will be ordered: Yes
[2022-06-13] MEDS ORDERED: MELATONIN 3 MG TAB PO PRN (21:09)
--- NOTE | 2022-06-13 21:12 | Surgery Consultation ---
Date of Consultation June 13, 2022 Assessment & Plan (1) Phlegmonous cellulitis: The patient is being admitted on the hospitalist service. We recommend proceeding as follows: Continue broad-spectrum antibiotics. He has had daptomycin and clindamycin initiated. Follow for the results of blood cultures have been sent. Antibiotics can therefore be tailored based on this I have marked the area in question with a pen. We will reassess the patient in the morning to see if the area of concerning infection extends outside this area. At the present time there is no need for surgical drainage as patient does not have a discrete abscess. Recommend obtaining tighter control of patient's glucose which will help with healing. History of Present Illness History of Present Illness This is a 57-year-old male who presented to the emergency department secondary to a wound in his right groin. Patient notes that he developed a boil in his right groin approximately 3 weeks ago. He said he did not notice any insect, tick, or spider bites to this area. He denies any trauma to this area. He said he did not seek medical attention and did not try to [place] the area. He notes despite leaving the boil alone it got bigger. Proximally 4 days ago he said that the area started to ooze pus, and approximately 2 days ago he noted some bloody drainage from it. He began applying antibiotic cream to no avail and the area continued to get worse. He denies any fevers, shakes, or chills. He denies any nausea or vomiting. He denies any dysuria. Patient notes that he is diabetic utilizing both insulin and pills. In the emergency department the patient had labs and imaging which independent reviewed. The patient did have a CT scan of his abdomen and pelvis. This study showed the patient had skin thickening and subcutaneous fat stranding in the right inguinal region. There is a small amount of ill-defined subcutaneous fluid that was felt to likely represent a phlegmon, however no loculated fluid collection suggestive of an abscess were noted. There is no gas seen in the soft tissue. Labs include a CBC were white blood cell count, hematocrit, and platelet count were normal. Chemistry profile showed sodium was 129. Potassium, BUN, and creatinine were normal. Lactic acid level was not elevated. Glucose level was 327. COVID test was noted be negative. 's arrival to the emergency department the patient has been given broad-spectrum antibiotics in form of clindamycin and daptomycin. The patient has had blood cultures sent. At the time of my interview the patient was resting comfortably in bed and he was in no distress. Allergies Allergy/AdvReac Type Severity Reaction Status Date / Time doxycycline Allergy Intermediate HIVES Verified 06/13/22 18:39 Penicillins Allergy Intermediate RASH Verified 06/13/22 18:39 Macrolide Antibiotics Allergy Unknown UNKNOWN Verified 06/13/22 18:39 morphine AdvReac Intermediate GI UPSET Verified 06/13/22 18:39 Home Medications Medication Instructions Recorded Confirmed Type aspirin 81 mg tablet,delayed 162 mg PO DAILY 09/29/21 06/13/22 History release metoprolol succinate 50 mg 50 mg PO DAILY 09/29/21 06/13/22 History tablet,extended release 24 hr rosuvastatin 20 mg tablet 20 mg PO DAILY 09/29/21 06/13/22 History Lactobacillus acidophilus 20 20,000 mmu cells PO DAILY 06/13/22 06/13/22 History billion cell capsule acetaminophen 650 mg 650 mg PO Q8H PRN Pain 06/13/22 06/13/22 History tablet,extended release amlodipine 10 mg tablet 10 mg PO QAM 06/13/22 06/13/22 History clobetasol 0.05 % topical cream 1 applic topical BID PRN Skin 06/13/22 06/13/22 History Irritation famotidine 20 mg tablet 20 mg PO BID 06/13/22 06/13/22 History fluoxetine 20 mg capsule 20 mg PO QAM 06/13/22 06/13/22 History insulin aspart U-100 100 unit/mL 15 unit subcut TIDM 06/13/22 06/13/22 History (3 mL) subcutaneous pen (Novolog Flexpen U-100 Insulin aspart) insulin detemir U-100 100 unit/mL 34 unit subcut HS 06/13/22 06/13/22 History (3 mL) subcutaneous pen (Levemir FlexTouch U-100 Insulin) levothyroxine 175 mcg tablet 175 mcg PO DAILYBB 06/13/22 06/13/22 History melatonin 3 mg tablet 3 mg PO HS 06/13/22 06/13/22 History semaglutide 2 mg/dose (8 mg/3 mL) 0.75 mg subcut WK 06/13/22 06/13/22 History subcutaneous pen injector (Ozempic) tadalafil 5 mg tablet (Cialis) 5 mg PO DAILY 06/13/22 06/13/22 History Patient History Medical History CHF (congestive heart failure) Cholangitis concurrent with and due to calculus of gallbladder Diabetes Hyperlipidemia, unspecified Hypertension Hypothyroidism, unspecified Morbid obesity with BMI of 50.0-59.9, adult Obstructive sleep apnea (adult) (pediatric) Pancreatitis Unspecified cerebral artery occlusion with cerebral infarction Social History Smoking Status: Never smoker Preferred Language: Luxembourgish Feels Safe at Home: Yes Review of Systems Constitutional: no fever and no chills Eyes: no diplopia Ear, Nose, Mouth, Throat: no ear pain Respiratory: no cough and no dyspnea Cardiovascular: no chest pain Gastrointestinal: no abdominal pain, no nausea and no vomiting Genitourinary: no dysuria Musculoskeletal: no back pain Integumentary: no rash Neurologic: no localized weakness Physical Exam Constitutional: WD/WN, vitals as above Eyes: no conjunctival abnormality ENMT: Ears: no hearing impairment and no external ear abnormality Mouth: no oropharynx abnormality Neck: trachea midline Respiratory: normal respiratory effort; no respiratory distress and no labored breathing Cardiovascular: Rate/Rhythm: regular rate and regular rhythm Gastrointestinal (Abdomen): Abdomen is soft and rotund. It is nonrigid and nondistended. Bowel sounds are present. There is no pain with palpation of the abdomen. Musculoskeletal: No calf tenderness. The feet do not exhibit any wounds. Neurologic: patellar DTR's 2+ bilat, sensation intact moves all extremities Genitourinary: The patient's groins and perineum were examined. The left groin was without any wounds. The patient's perineum and scrotum were examined and there is no erythema or crepitus in the tissue. There are no areas of eschar or drainage in these areas. The right groin was examined and the patient was noted to have a lump consistent with a boil that measured approximately 6 to 7 cm x 3 to 4 cm. The area was warm and erythematous. There was a small proximately 1 to 2 cm black scab/eschar. There is no crepitus noted in the soft tissue. The area was slightly painful to palpation. There is some serous fluid draining from the area. The area in question did not feel fluctuant but did feel hard and indurated. Should be noted that both groins were moist and damp and had findings consistent with intertrigo noted. Results & Data ([facility]) Vital Signs (Past 12 Hours) Vital Signs Temp Pulse Pulse Resp BP Pulse Ox O2 Del Method 06/13/22 19:30 87 19 177/99 H 95 Room Air 06/13/22 19:19 84 19 159/93 H 99 Room Air 06/13/22 17:44 70 19 98 Room Air 06/13/22 17:44 98 Room Air 06/13/22 17:44 70 19 97 Room Air 06/13/22 16:23 36.8 C 102 H 20 183/97 H 95 Room Air PG Care Time/CCT Total # of Minutes Spent Total Time Spent with Patient: Total time spent is greater than 50% in coordination of care (as documented) at patient's floor/unit and/or counseling patient: Coding Level of Care Code 94495 Inpt Consult Level 5 Diagnoses Phlegmonous cellulitis L02.91
[2022-06-13] MEDS ORDERED: INSULIN DETEMIR FLEXPEN/FLEX TOUCH 100 UNITS/ML 3ML SC SCH (21:45)
[2022-06-13] MEDS: INSULIN ASPART PER UNIT SC SCH (21:55)
[2022-06-13] MEDS: metroNIDAZOLE 500 MG/100 ML BAG IV SCH (22:44)
[2022-06-13] MEDS: LACTATED RINGER'S 1,000 ML IV SCH (23:13)
[2022-06-14] MEDS: ACETAMINOPHEN 325 MG TAB PO PRN ×2 (00:07→13:13)
[2022-06-14] MEDS ORDERED: INSULIN ASPART PER UNIT SC SCH (02:00)
[2022-06-14] MEDS: metroNIDAZOLE 500 MG/100 ML BAG IV SCH ×2 (05:51→13:58)
[2022-06-14] MEDS ORDERED: LEVOTHYROXINE SODIUM 175 MCG TABLET PO SCH (06:30)
[2022-06-14 07:10] LABS: Basophils # (auto) 0.07 K/uL (0-0.2); Eosinophils # (auto) 0.38 K/uL (0-0.50); Eosinophils % (auto) 5.2 %; Hematocrit (blood only) 38.5 % (40.1-51.0); Hemoglobin 12.9 g/dl (14.0-18.0); Immature Granulocytes # (auto) 0.02 K/uL (0.00-0.02); Immature Granulocytes % (auto) 0.3 %; Lymphocytes # (auto) 1.09 K/uL (1.2-3.4); Lymphocytes % (auto) 14.9 %; Mean Corpuscular Hgb Conc 33.5 g/dL (32.0-36.0); Mean Corpuscular Volume 80.7 fL (80.0-100.0); Mean Platelet Volume 8.6 fL (9.4-12.4); Monocytes # (auto) 0.56 K/uL (0.24-0.82); Monocytes % (auto) 7.7 %; Neutrophils # (auto) 5.19 K/uL (1.4-6.5); Neutrophils % (auto) 70.9 %; Platelet Count 278 K/uL (130-400); RDW Coefficient of Variation 12.6 % (11.5-14.5); RDW Standard Deviation 36.8 fL (36.4-46.3); Red Blood Count 4.77 M/uL (4.63-6.08); White Blood Count 7.31 K/ul (4.8-10.8)
[2022-06-14 07:37] LABS: Estimated Average Glucose 358 mg/dl; Hemoglobin A1C 14.1 % (4.5-5.6)
[2022-06-14 07:38] LABS: BUN Creatinine Ratio 8.6 (10-20); Calcium 8.9 mg/dl (8.5-10.1); Est GFR (Non-African American) 100.1 ml/min; Potassium 3.3 mmol/L (3.5-5.1)
[2022-06-14 07:40] LABS: Albumin Level 3.3 gm/dl (3.4-5.0); Bilirubin,Total 0.6 mg/dl (0.2-1.0); Chol HDL Ratio 5.4 (0-5); Globulin 3.4 gm/dl (2.5-4.0); Magnesium 1.9 mg/dl (1.7-2.4); Phosphorus 3.9 mg/dl (2.5-4.9); Total Protein 6.7 gm/dl (6.0-8.3)
[2022-06-14] MEDS ORDERED: FLUoxetine HCL 20 MG CAP PO SCH (09:00)
[2022-06-14] MEDS ORDERED: METOPROLOL SUCC 50MG EXT REL TAB PO SCH (09:00)
[2022-06-14] MEDS ORDERED: ASPIRIN 81 MG ECTAB PO SCH (09:00)
[2022-06-14] MEDS ORDERED: ROSUVASTATIN CALCIUM 20 MG TAB PO SCH (09:00)
[2022-06-14] MEDS ORDERED: amLODIPine BESYLATE 5 MG TAB PO SCH (09:00)
[2022-06-14] MEDS ORDERED: ENOXAPARIN INJ 40 MG/0.4 ML SYR SQ SCH (09:00)
[2022-06-14] MEDS: INSULIN ASPART PER UNIT SC SCH ×2 (09:02→13:14)
[2022-06-14] MEDS ORDERED: POTASSIUM CHLORIDE CRTAB 20 MEQ TABCR PO STA (09:46)
--- NOTE | 2022-06-14 10:05 | Pharmacy Report ---
Pharmacy Glycemic Short Note 2 - Date of Service June 14, 2022 - Glycemic Short BSG Results (Last 24 hours): 06/13/22 06/13/22 06/13/22 16:40 21:47 23:14 Glucose 327 H* POC Glucose 270 H 265 H 06/14/22 06/14/22 06/14/22 01:49 06:50 08:08 Glucose 154 H POC Glucose 210 H 152 H OUTPATIENT ANTIDIABETIC REGIMEN: * Levemir 34 units HS * Novolog 15 units with meals * Ozempic 0.75mg SQ weekly ASSESSMENT: * 57 year old type 2 diabetic admitted with cellulitis on IV antibiotics. * Patient started on home basal insulin and NovoLog last night, will tighten CF/CR at this time and continue to titrate to goal BSG. * ADA & AACE recommend a goal blood sugar range 140-180 mg/dl for the majority of critically ill & non-critically ill patients. However, more stringent targets may be selected in individual cases. Will utilize more stringent goal of 110-140mg/dl based on patient age & comorbidities. Additionally, tighter glycemic control is warranted to facilitate wound/infection healing. PLAN FOR INPATIENT GLYCEMIC CONTROL: * Hold outpatient diabetes medications * Basal insulin * Levemir 35 units SQ HS * Bolus insulin * NovoLog per scale ACHS or Q6hrs while NPO * Goal Range: Low 110 mg/dL - High 140 mg/dL * Correction Factor: 15 mg/dL/unit * Nutritional / Prandial insulin per carb ratio of 1 unit per 5 grams CHO consumed
--- NOTE | 2022-06-14 10:49 | Surgery Progress Note ---
Date of Service June 14, 2022 Assessment & Plan (1) Phlegmonous cellulitis: Plan: Nothing on CT scan to drain however we did make 2 punctures at bedside to try and help expedite any purulent drainage. Again it is more cellulitis and phlegmon than actual abscess. Continue local wound care as well as IV antibiotics. Dr. Corbin covering for the weekend. (2) DM2 (diabetes mellitus, type 2): Admission and Anticipated Discharge Date Admission Date: June 13, 2022 Subjective Patient still quite tender although improved from admission. He continues to have some purulent drainage. Physical Exam Constitutional: WD/WN, vitals as above no acute distress and not ill appearing Eyes: PERRL, conjunctivae normal, anicteric sclerae EOM intact bilaterally ENMT: external ear and nose normal, oropharynx normal Ears: no hearing impairment Neck: trachea midline, no thyromegaly Respiratory: normal respiratory effort; no respiratory distress and does not use accessory muscles Cardiovascular: Rate/Rhythm: regular rate and regular rhythm Gastrointestinal (Abdomen): normal bowel sounds, soft, nontender, no hepatosplenomegaly Skin: In his right groin there is cellulitis and firmness and phlegmon. 2 areas of eschar. It is exquisitely tender. Psychiatric: Orientation: alert, oriented x 3 and cooperative Results & Data ([facility]) Vital Signs (Past 12 Hours) Vital Signs Temp Pulse Resp BP BP Pulse Ox O2 Del Method 06/14/22 07:51 36.9 C 78 16 149/87 H 96 Room Air 06/13/22 22:59 36.8 C 81 18 156/84 H 97 Room Air 06/13/22 22:59 36.8 C 81 18 156/84 H 97 Room Air PG Care Time/CCT Total # of Minutes Spent Total Time Spent with Patient: Total time spent is greater than 50% in coordination of care (as documented) at patient's floor/unit and/or counseling patient: Coding Level of Care Code 62545 Subseq Hosp Care Lvl 2 Diagnoses Phlegmonous cellulitis L02.91 DM2 (diabetes mellitus, type 2) E11.9
[2022-06-14] MEDS: LACTATED RINGER'S 1,000 ML IV SCH (11:30)
--- NOTE | 2022-06-14 14:52 | Electrocardiogram Report ---
Test Reason : Blood Pressure : / mmHG Vent. Rate : 086 BPM Atrial Rate : 086 BPM P-R Int : 228 ms QRS Dur : 080 ms QT Int : 394 ms P-R-T Axes : 034 006 063 degrees QTc Int : 471 ms Sinus rhythm with 1st degree A-V block Nonspecific T wave abnormality Prolonged QT Abnormal ECG When compared with ECG of 29-SEP-2021 11:15, CO interval has increased Vent. rate has decreased BY 50 BPM Minimal criteria for Inferior infarct are no longer Present Confirmed by Martinez Mcmahan ([id number]) on 06/14/2022 2:51:49 PM Referred By: Jennifer Jimenez Confirmed By:Tu Mcmahan
--- NOTE | 2022-06-14 15:20 | Discharge Summary ---
Date of Service June 14, 2022 Admission HPI Per Admitting Provider The patient is a 57 year old man with pmh DM2, HTN, h/o CVA (2007 without residual deficits), depression/binge eating disorder, hypothyroidism, recent h/o cholangitis s/p stent placement 09/2021 who presented with 3 weeks of worsening right groin swelling, erythema, drainage. He reports that he first noticed a "boil" developing but did not try to manipulate it or drain it. He says it continued to get bigger until it started draining white contents/pus, subsequently draining blood until presentation. He denies any recent procedures or wounds in this area or other areas. He denies fever or chills, n/v/d, abdomi nal pain, cough, chest pain, shortness of breath. He lives alone with his cat. Denies drinking alcohol or tobacco or drug use. He reports not taking any medications on day of presentation. Has also been applying OTC topical abx to the wound. He rpports not change in appetite. In the ED, vitals were significant for elevated BP, HR initially at 102. Labs were significant for BG >300, hgb 13.6 (?baseline), Na 129 (corrected for BG 133). CT-AP showed cellulitic changes in right groin without fluid collection to suggest abscess. He was given daptomycin and admitted to medicine. Admission Exam Per Admitting Provider Constitutional: WD/WN, vitals as above + morbidly obese; no acute distress Eyes: PERRL, conjunctivae normal, anicteric sclerae ENMT: external ear and nose normal, oropharynx normal Mouth: + dry oral mucous membranes Neck: trachea midline, no thyromegaly Respiratory: normal respiratory effort, lungs clear to auscultation Cardiovascular: RRR, no murmur, no edema Gastrointestinal (Abdomen): normal bowel sounds, soft, nontender, no hepatosplenomegaly Musculoskeletal: no cyanosis or clubbing, extremities motor strength 5/5 Neurologic: patellar DTR's 2+ bilat, sensation intact and PERRL, EOMI, accommodation nl, no face palsy, no dysarthria Psychiatric: A+Ox3, euthymic affect Genitourinary: right inguinal swelling and erythema with round, mass like ?fluid collection with drainage of white contents on palpation, erythema in plaques in folds of pannus on right side. Erhtyema extends to the suprapubic region and right side of superior aspect of scrotum. Principal Diagnosis Phlegmonous cellulitis of R inguinal region Discharge Exam Gen: WD/WN, NAD, sitting in bed, A&Ox3 HEENT: Normocephalic, atraumatic, conjunctivae moist, sclerae anicteric, mucous membranes moist Lung: Clear to Auscultation bilaterally, no wheezes/rales/rhonchi Heart: Regular rate, regular rhythm, no murmurs, rubs, or gallops Abdomen: Soft, NT, ND +BS x 4 Extremities: no edema Skin: Warm, dry. + R inguinal region withcellulitis and firmness. Serosanguineous drainage on dressing. Very TTP Discharge Data Allergies Allergy/AdvReac Type Severity Reaction Status Date / Time doxycycline Allergy Intermediate HIVES Verified 06/13/22 18:39 Penicillins Allergy Intermediate RASH Verified 06/13/22 18:39 Macrolide Antibiotics Allergy Unknown UNKNOWN Verified 06/13/22 18:39 morphine AdvReac Intermediate GI UPSET Verified 06/13/22 18:39 Consultations 06/13/22 19:39 ED Decision to Admit Stat 06/13/22 20:16 Consult General Surgery Routine Ordered Studies 06/13/22 17:43 CT abd pelvis IV con only Stat Diabetes Follow up Diabetes Follow-up Needed for HgbA1c >9% Hospital Course (1) Phlegmonous cellulitis: (2) Morbid obesity: (3) DM2 (diabetes mellitus, type 2): (4) HTN (hypertension): (5) Morbid obesity with BMI of 50.0-59.9, adult: (6) CHF (congestive heart failure): Plan The patient is a 57 year old man with PMH of DM2, HTN, h/o CVA (2007 without residual deficits), depression/binge eating disorder, hypothyroidism, recent h/o cholangitis s/p stent placement 09/2021 who presented with 3 weeks of worsening right groin swelling, erythema, drainage and found to have phlegmonous cellulitis of R inguinal region. CT abd/pelvis with skin thickening and subcutaneous fat stranding within the right inguinal region. This likely represents a cellulitis. Small amount of ill-defined subcutaneous fluid at this location may represent a phlegmon. No loculated fluid collections to suggest an abscess at this time. No soft tissue gas identified. Evaluated by general surgery - no indication for surgery but 2 punctures made to expedite any purulent drainage. Instructed to continue IV antibiotics and wound care however patient states that he needs to work tomorrow left against medical advice despite a long discussion. Will send Po Clinda course (due to PCN allergy) and probiotic to local pharmacy to complete 10 day course as well as twice daily probiotic. Stressed importance of improved diabetes control with taking insulin as prescribed to improve wound healing. A1c of 14 while admitted. Patient understands instructions and agrees to seek medical care for worsening pain and swelling of wound or fever. Discussed risks of leaving AMA to include worsening infection, sepsis and even . Patient states that he understands. Total Time Total Time Spent Total Time Spent (In Minutes): 40 Discharge Plan Discharge Items Patient Disposition: Against Medical Advice Reason For Visit: CELLULITIS Activity: Resume your previous activity Non-emergency contact: Primary Care Provider Follow-up/Referrals: Jennifer Jimenez DO [Primary Care Provider] - 06/21/22 10:20 am (Date & Time 06/21/2022 10:20 AM Provider Danis Mariano III, MD Department Family [facility] ) Addtl [employer] Supervisor Provider Instructions: You came in with cellulitis of R inguinal/ groin area Evaluated by general surgery - no indication for surgery but 2 punctures made to expedite any purulent drainage Continue local wound care Discussed importance of patient remaining in hospital for IV antibiotics but patient electing to leave against medical advice Sending Clindamycin antibiotic course to pharmacy along with probiotics Diabetic with a1c of 14 - discussed better control of Diabetes with proper insulin use will help with wound healing Please follow up with PCP appointment as above. OTHER INSTRUCTIONS: Seek medical attention if you have: * temperature above 101 * chest pain or trouble breathing * abdominal pain, nausea, vomiting * diarrhea, dark stools or bloody stools * any unanswered questions or concerns Call 911 if symptoms are severe. Please take good care of yourself. Call if you have any questions or problems. You can reach a [facility] hospitalist on duty at [facility] 24 hours a day by calling [phone]. Pending Studies at Discharge: Yes Stand-Alone Forms: My [facility] [employer], Smoking Cessation Skilled Items Patient informed of condition?: Yes DNR: No Communicable Disease: No Medications and DC Order Prescriptions: New clindamycin HCl 300 mg capsule 450 mg PO Q8H 10 Days Qty: 45 0RF Rx Instructions: Take 1.5 caps three times daily x 10 days. NewFlora 10 billion cell capsule 100 mg PO BID Qty: 60 0RF Rx Instructions: Take twice daily for 30 days. Continued metoprolol succinate 50 mg tablet extended release 24 hr 50 mg PO DAILY aspirin 81 mg tablet,delayed release (DR/EC) 162 mg PO DAILY rosuvastatin 20 mg tablet 20 mg PO DAILY levothyroxine 175 mcg tablet 175 mcg PO DAILYBB clobetasol 0.05 % cream 1 applic TOPICAL BID PRN (Reason: Skin Irritation) melatonin 3 mg Tablet 3 mg PO HS acetaminophen 650 mg Tablet Extended Release 650 mg PO Q8H PRN (Reason: Pain) famotidine 20 mg tablet 20 mg PO BID amlodipine 10 mg tablet 10 mg PO QAM fluoxetine 20 mg capsule 20 mg PO QAM insulin aspart U-100 [Novolog Flexpen U-100 Insulin] 100 unit/mL (3 mL) insulin pen 15 unit SUBCUT TIDM tadalafil [Cialis] 5 mg Tablet 5 mg PO DAILY Levemir FlexTouch U-100 Insuln 100 unit/mL (3 mL) insulin pen 34 unit SUBCUT HS MDD 50 UNITS Rx Instructions: INCREASE BY 2 UNITS PER DAY UNTIL FASTING BSG <150, THEN INCREASE BY 1 UNIT DAILY UNITL FASTING BSG ARE <120 DAILY, MAX 50 UNITS. Ozempic 2 mg/dose (8 mg/3 mL) pen injector 0.75 mg SUBCUT WK Discontinued Lactobacillus acidophilus 20 billion cell Capsule 20,000 mmu cells PO DAILY Admission Data Admit Date/Time: 06/13/22 20:40 Attending Provider: Vj [place] Admit Provider: Asher Danielle Primary Care Provider: Jennifer Jimenez Other Providers: Anthony Zavala ; Nataly Lucas Supervising Physician Co-Signing Physician Notes Attending addendum: The patient was seen and examined in medical floor He was admitted with right inguinal phlegmon with cellulitis No fever and or chills He has been feeling much better since admission Denies any other significant symptoms and wants to go home On examination No apparent distress at rest Hemodynamically stable Local examination of the right groin-serosanguineous discharge with minimal tenderness Chest-clear to auscultate bilaterally Heart-S1-S2, regular Abdomen-benign Extremities-trace edema bilaterally His admission labs and imaging studies reviewed He has right inguinal phlegmon with cellulitis Has been evaluated by surgery and has had drainage at bedside with minimal serosanguineous fluid Has been on intravenous antibiotic and the wound culture has been sent He wanted to go home and signed out AMA He was strongly advised to stay in the hospital until he get culture and the w ound cleared from any infection and also the diabetes is under control Continue that the condition may get worse and he may going to septic shock Agree with assessment and plan as outlined above by AIME Calixto Dr
[2022-06-14] MEDS ORDERED: DAPTOmycin 350 MG in SYRINGE 0 ML IV SCH (16:00)
== END 2022-06-14 16:05 | disposition left against medical advice (07) | DRG 603 ==
LOC: ED 16:14 → 3N 20:40 → SUATTDRO 20:40 → 3N 22:34

== ENCOUNTER 2024-03-07 12:59 | Inpatient (IN) ==
--- OUTSIDE RECORDS SUMMARY | 2024-03-07 13:20 | External Medical Summary | Summary of Care ---
Author Name Unknown Organization [facility] Address [address] [place] [place] [address] Phone [phone] Care Team Providers Care Geographic Information System Surveyor Name Role Phone Jennifer Jimenez DO Primary Care Provider Reason for Visit * Reason Comments eRx-Medication Refill Encounter Details Date Type Department Care Team (Late st Contact Info) Description 01/05/2024 Refill Family Practice [facility] [address] [place] [address] Jennifer Jimenez DO [address] [facility] [place] [address] HTN, goal below 140/90; CEREBROVASCULAR DZ, POST-STROKE; Pure hypercholesterolemia Allergies Active Allergy Reactions Criticality Noted Date Comments Doxycycline Hives 08/01/2012 Macrolides And Ketolides 07/15/2000 unknown Morphine And Related 06/11/2008 GI upset Penicillins 08/29/1999 1969 anaphylaxis documented as of this encounter (statuses as of 01/06/2024) Medications Medication Sig Dispensed Refills Start Date End Date Status Insulin Pen Needle 32G X 8 MM MISCIndications:Type 2 diabetes mellitus with hemoglobin A1c goal of less than 8.0% ([facility]) Use as directed 2 times a day. To inject insulin. 200 Each 3 08/18/20 19 Active Melatonin 3 MG Oral Tablet Disintegrating Take 1 Tablet at bedtime by mouth. 30 Tablet 5 11/06/19 22 Active Lactobacillus Extra Strength Oral Capsule Take 1 Capsule daily by mouth. 30 Capsule 0 11/06/19 22 Active Acetaminophen ER 650 MG Oral Tablet Extended Release Take 1 Tablet by mouth every 8 hours as needed for Pain, Moderate. 30 Tablet 0 11/06/19 22 Active metFORMIN HCl ER 500 MG Oral Tablet Extended Release 24 Hour (Glucophage XR) 1 daily with breakfast x 2 weeks then 2 daily with breakfast 60 Tablet 06/21/20 22 Active CasiMariah [place] 33GIndications:Type 2 diabetes mellitus with hemoglobin A1c goal of less than 8.0% ([facility]) Use as directed 4 times per day 400 Each 10/18/19 23 Active Famotidine 20 MG Oral Tablet (Pepcid)Indications:Maria Elena roesophageal reflux disease without esophagitis TAKE 1 TABLET BY MOUTH IN THE MORNING AND 1 TABLET BEFORE BEDTIME 60 Tablet 03/23/20 23 Active BD Pen Needle Mini U/F 31G X 5 MM (Insulin Pen Needle) Use 4 times daily with insulin injections 100 Each 04/24/20 23 Active Nystatin 760957 UNIT/GM External Powder (Nystop)Indications:Viki a cruris Apply topically to affected area 3 times a day. Apply to scrotum 60 g 10/30/19 24 Active Triamcinolone Acetonide 0.1 % External Cream (Aristocort) Apply topically to affected area 2 times a day. To affected area. vaseline after 453.6 g 10/30/19 24 Active Lisinopril 20 MG Oral Tablet (Prinivil)Indications:Ty pe 2 diabetes mellitus with hyperglycemia, with long-term current use of insulin ([facility]),HTN, goal below 140/90 TAKE ONE TABLET BY MOUTH EVERY MORNING 90 Tablet 11/07/19 24 Active Mounjaro 2.5 MG/0.5ML Subcutaneous Solution Pen-injector (Tirzepatide)Indications :Type 2 diabetes mellitus with hemoglobin A1c goal of less than 8.0% ([facility]),Type 2 diabetes mellitus with hyperglycemia, with long-term current use of insulin ([facility]) Inject 2.5 mg under the skin once a week. 2 mL 12/04/19 24 025 Active Insulin Glargine Solostar 100 UNIT/ML Subcutaneous Solution Pen-injector (Lantus SoloStar)Indications:Typ e 2 diabetes mellitus with hyperglycemia, with long-term current use of insulin ([facility]) Inject 40 Units under the skin at bedtime. TITRATING DOSE EVERY 2 WEEKS UNTIL BG LESS THAN 180 (Levemir not being made anymore) (up until max dose of 50 units) 45 mL 3 12/11/19 24 Active FLUoxetine HCl 40 MG Oral Capsule (PROzac)Indications:Estrellita e eating disorder Take 1 Capsule by mouth in the morning. 30 Capsule 5 12/23/19 24 Active Fluconazole 100 MG Oral Tablet (Diflucan) Take 1 Tablet by mouth in the morning for 21 days. Two tablets on the first day, then One tablet once a day for 3 weeks. 22 Tablet 0 12/23/19 24 024 Active Clobetasol Propionate 0.05 % External Cream (Temovate)Indications:De rmatitis Apply topically to affected area 2 times a day. To affected area on feet for up to two weeks. 60 g 1 12/23/19 24 Active Levothyroxine Sodium 175 MCG Oral Tablet (Levoxyl)Indications:Acq uired hypothyroidism Take 1 Tablet by mouth daily first thing in the morning. (at least 30 min prior to breakfast or other meds) 90 Tablet 3 12/23/19 24 Active OneApexPeak Ultra In Vitro Strip (Glucose Blood) E11.9, use once daily 100 Strip 12/23/19 24 Active amLODIPine Besylate 10 MG Oral Tablet (Norvasc)Indications:HTN , goal below 140/90 TAKE ONE TABLET BY MOUTH EVERY MORNING 90 Tablet 3 01/06/20 24 Active Aspirin Low Dose 81 MG Oral Tablet Delayed Release (aspirin enteric coated)Indications:Cereb rovascular disease, arteriosclerotic, post-stroke TAKE TWO TABLETS BY MOUTH EVERY MORNING 180 Tablet 3 01/06/20 24 Active Rosuvastatin Calcium 20 MG Oral Tablet (Crestor)Indications:Pur e hypercholesterolemia TAKE ONE TABLET BY MOUTH EVERY MORNING 90 Tablet 01/06/20 24 Active Metoprolol Succinate ER 50 MG Oral Tablet Extended Release 24 Hour (toPROL XL)Indications:HTN, goal below 140/90 TAKE ONE TABLET BY MOUTH EVERY MORNING 90 Tablet 01/06/20 24 Active Aspirin Low Dose 81 MG Oral Tablet Delayed Release (aspirin enteric coated)Indications:Cereb rovascular disease, arteriosclerotic, post-stroke TAKE TWO TABLETS BY MOUTH EVERY MORNING 180 Tablet 3 12/25/19 23 024 Discontinued amLODIPine Besylate 10 MG Oral Tablet (Norvasc)Indications:HTN , goal below 140/90 TAKE ONE TABLET BY MOUTH EVERY MORNING 90 Tablet 1 06/20/20 23 024 Discontinued Metoprolol Succinate ER 50 MG Oral Tablet Extended Release 24 Hour (toPROL XL)Indications:HTN, goal below 140/90 TAKE ONE TABLET BY MOUTH EVERY MORNING 90 Tablet 1 06/20/20 23 024 Discontinued Rosuvastatin Calcium 20 MG Oral Tablet (Crestor)Indications:Pur e hypercholesterolemia TAKE ONE TABLET BY MOUTH EVERY MORNING 90 Tablet 0 10/08/20 23 024 Discontinued documented as of this encounter (statuses as of 01/06/2024) Active Problems Problem Noted Date Diagnosed Date Food insecurity 12/22/2023 Overview: Per [facility] Protocol Chronic ankle pain 05/02/2023 Chronic pain of left knee 05/02/2023 Diabetic polyneuropathy asso ciated with diabetes mellitus due to underlying condition 10/17/2022 History of sepsis 12/06/2021 History of diabetic ketoacidosis 12/06/2021 Iron deficiency anemia due to chronic blood loss 12/06/2021 Elevated alkaline phosphatase measurement 2021 Rotator cuff syndrome of right shoulder 12/29/19 Psoriasis 12/28/2020 Major depressive disorder, recurrent episode, mo derate 05/06/2019 Binge eating disorder 05/06/2019 Erectile dysfunction 05/06/2019 Primary open angle glaucoma of both eyes, modera te stage 03/19/2017 Pruritus 03/28/2016 Overview: Favor it is related to his Adult Onset Diabetes Mellitus amitriptyline at bedtime Keratoderma 03/28/2016 Overview: Palmoplantar, elbows, knees Alopecia areata 03/28/2016 Overview: Noted, not treated Vitiligo 03/28/2016 Overview: Noted not reated HTN, goal below 140/90 08/02/2015 Acquired hypothyroidism 07/20/2015 Severe obstructive sleep apnea 05/12/2014 Overview: BIPAP AHP Type 2 diabetes mellitus wit h hemoglobin A1c goal of less than 8.0% 11/09/2013 Overview: ICD-10 update of inactive term DYSLIPIDEMIA, GOAL LDL BELOW 100 09/21/2009 Overview: Per Lipid Taxonomy. CEREBROVASCULAR DZ, POST-STROKE 01/24/2009 Overview: Modified per CVA protocol #8 ADVANCE DIRECTIVE INFORMATION 02/12/2008 Overview: No, Advance Directive brochure mailed to patient. Donita waldropnancie 07/26/2000 documented as of this encounter (statuses as of 01/06/2024) Resolved Problems Problem Noted Date Diagnosed Date Resolved Date Body mass index (BMI) of 50. 0 to 59.9 in adult 06/25/2021 08/03/2021 Overview: Per Obesity protocol Bereavement, uncomplicated 09/15/2020 0 11/11/2021 Chronic diastolic heart failure 05/25/2020 12/28/2020 Body mass index (BMI) of 45. 0 to 49.9 in adult 01/20/2018 06/28/2021 Overview: Per Obesity protocol #1 - Per Obesity Taxonomy ICD-10 update of inactive term Body mass index (BMI) of 50. 0 to 59.9 in adult 12/23/2017 01/23/2018 Overview: Per Obesity protocol #1 - Per Obesity Taxonomy ICD-10 update of inactive term Hemiplegia as late effect of cerebrovascular disease 12/05/2017 12/28/2020 Hypothyroidism 04/29/2014 07/20/2015 HTN, goal below 140/80 06/01/201202/22 Overview: Per HTN Protocol #27. Obesity, morbid (more than 1 00 lbs over ideal weight or BMI > 40) 01/09/2010 12/26/2017 Overview: Per Obesity Taxonomy ICD-10 update of inactive term HTN, GOAL BELOW 130/80 11/08/200906/04 Overview: Per HTN Taxonomy. Type 2 diabetes mellitus wit h hemoglobin A1c goal of less than 7.0% 07/27/2009 11/09/2013 Overview: Modified per Diabetes protocol #14. ICD-10 update of inactive term Cerebrovascular event, ill-d efined, within last 8 weeks 02/23/2008 01/26/2009 Overview: Modified per CVA protocol #8 Dyslipidemia, goal to be determined 02/09/2008 09/21/2009 Overview: Per Lipid Taxonomy. DM type 2, not at goal 03/23/200105/11 Insomnia 07/26/2000 07/10/2017 Overview: ICD-10 update of inactive term DM type 2, not at goal 07/27 Overview: Modified per Diabetes protocol #14. HTN, goal below 140/90 11/08 Overview: Per HTN Taxonomy. OBESITY, UNSPECIFIED 010 Overview: Per Obesity Taxonomy documented as of this encounter (statuses as of 01/06/2024) Immunizations Name Administration Dates Next Due COVID-19 mRNA, LNP-s, No Pre serve, 2-Dose Series ([employer]) 06/07/2021,12/26/2020 H1N1 2009 Influenza, IM 09/01/2009 Hepatitis B, 20+ yrs 05/31/2014,12/10/2013,11/08 Pneumococcal Conjugate Vacci ne, 20-valent ([id number]) 03/07/2022 Pneumococcal Polysaccharide PPV23 (Pneumovax) 04/29/2008 Seasonal Influenza, PF, 6 M & above, IM , (FluLaval or Fluzone) 06/21/2022,06/29/2021,07/24/2020,06/25,07/11/2017 Seasonal Influenza, Quadriva lent, No Preserve, IM 07/19/2016,07/20/2015 Seasonal Influenza, Quadriva lent, No Preserve, Mdck 07/10/2018 Seasonal Influenza, Split, I IV3, With Preserve, Inj 06/14/2014,08/12/2013,09/04/2012,07/30,08/07/2010,08/03/2009,08/04/2008 TD, Preservative Free 05/07/2018 TDAP (age 11 and older)(Adacel) 03/28/2008 Zoster Vaccine Recombinant (Shingrix) 06/25/2019 ,12/04/2018 documented as of this encounter Social History Tobacco Use Types Packs/Day Years Used Date Smoking Tobacco: Never Smokeless Tobacco: Never Alcohol Use Standard Drinks/Week Comments Not Currently 0 (1 standard drink = 0.6 oz pur e alcohol) com[place] wine at [facility] PHQ-2 Answer Date Recorded PHQ Adult Total Score 17 12/04/2023 Hunger Vital Sign Answer Date Recorded Within the past 12 months, y ou worried that your food would run out before you got the money to buy more. Never true Within the past 12 months, t he food you bought just didn't last and you didn't have money to get more. Sometimes true Sex and Gender Information Value Date Recorded Sex Assigned at Male 12/04/2023 1:22 PM EST Gender Identity Male 12/04/2023 1:22 PM EST Sexual Orientation Straight 12/04/2023 1: 22 PM EST Job Start Date Occupation Industry Not on file Not on file Not on file documented as of this encounter Miscellaneous Notes * Telephone Encounter - Audelia Gould, [facility] - 01/06/2024 10:43 AM EDTSigned Prescriptions: Disp Refills amLODIPine Besylate 10 MG Oral Tablet (Nor*90 Tab*3 Sig: TAKE ONE TABLET BY MOUTH EVERY MORNINGAuthorizing Provider: JENNIFER JIMENEZ User: AUDELIA GOULD Aspirin Low Dose 81 MG Oral Tablet Delayed*180 Ta*3 Sig: TAKE TWO TABLETS BY MOUTH EVERY MORNINGAuthorizing Provider: JENNIFER JIMENEZ User: AUDELIA GOULD Rosuvastatin Calcium 20 MG OralTablet (Cr*90 Tab*3 Sig: TAKE ONE TABLET BY MOUTH EVERY MORNINGAuthorizing Provider: JENNIFER JIMENEZ User: AUDELIA GOULD Metoprolol Succinate ER 50 MG Oral Tablet *90 Tab*3 Sig: TAKE ONE TABLET BY MOUTH EVERY MORNINGAuthorizing Provider: JENNIFER JIMENEZ User: ARLENE GOULD documented in this encounter Plan of Treatment Upcoming Encounters Date Type Department Care Team (Late st Contact Info) Description 01/19/2024 2:40 PM EDT Office Visit Family Practice [facility] [address] [address] Jennifer Jimenez DO [address] [place] [address] 04/02/2024 10:30 AM EDT Telemedicine [facility] [address] [place] [address] Clotilde Alexander, [facility] [address] [place] [address] Health Maintenance Due Date Last Done Comments Hepatitis C Screening 1985 Cologuard 2012 Fecal Occult Blood Test 2012 Sigmoidoscopy 2012 Albumin/Creatinine Ratio 06/02/2021 08 020, 06/19/2018, 07/11/2017, Additional history exists COVID-19 Vaccine ( season) 2023 06/07/2021, 12/26/2020 Influenza Vaccine (FLU shot) (#1) 2023 06/21/2022, 06/29/2021, 07/24/2020, Additional history exists Depression, Most Recent Score >= 10 (will fire each visit until score < 10) 12/05/2023 12/04/2023 Diabetic Eye Exam 04/24/2024 04/24/2023, , 02/11/2018, Additional history exists Diabetic Foot Exam 04/24/2024 04/24/2023, 0 03/07/2022, 08/24/2020, Additional history exists HbA1c 05/06/2024 11/06/2023, 02/0 06/2023, 10/18/2022, Additional history exists TSH 11/06/2024 11/06/2023, 02/0 06/2023, 11/02/2021, Additional history exists GFR 11/29/2024 11/29/2023, 10/14, 11/21/2022, Additional history exists Colonoscopy 07/25/2027 07/25/2017 Colorectal Cancer Screening 07/25/2027 DTaP,Tdap,and Td Vaccines (3 - Td or Tdap) 05/07/2028 05/07/2018, 03/28/2008 Hepatitis B Completed 05/31/2014, 11/14, 11/08/2013 Zoster Vaccines Completed 06/25/2019, 12/04/2018 Pneumococcal Vaccine: Pediatrics (0 to 5 Years) and At-Risk Patients (6 to 64 Years) Completed 03/07/2022, 04/29/2008 GARDASIL-HPV IMMUNIZATION SERIES Aged Out No longer eligible based on patient's age to complete this topic MENINGOCOCCAL (MENACTRA/MENVEO) Aged Out No longer eligible based on patient's age to complete this topic documented as of this encounter Medical Devices Not on filedocumented as of this encounter Visit Diagnoses Diagnosis HTN, goal below 140/90 Unspecified essential hypertension CEREBROVASCULAR DZ, POST-STROKE Cerebral atherosclerosis Pure hypercholesterolemia documented in this encounter Care Teams Geographic Information System Surveyor Relationship Specialty Start Date End Date Jennifer Jimenez DO [address] [place], [place] [address] PCP - General Family Medicine 09/17/18 documented as of this encounter
--- OUTSIDE RECORDS SUMMARY | 2024-03-07 13:20 | External Medical Summary | Summary of Care ---
Author Name Unknown Organization [facility] Address [address] [facility] [place] [address] Phone [phone] Care Team Providers Care Gallery Or Museum Attendant Name Role Phone Jennifer Jimenez Primary Care Provider Reason for Visit * Reason Onset Date Comments Appointment 10/31/2023 Encounter Details Date Type Department Care Team (Late st Contact Info) Description 10/31/2023 Telephone Family Practice [facility] Patricia Excel [address] [facility] [place] [address] Corry Valdovinos PA-C [address] [facility] [place] [address] Appointment Allergies Active Allergy Reactions Criticality Noted Date Comments Doxycycline Hives 08/01/2012 Macrolides And Ketolides 07/15/2000 unknown Morphine And Related 06/11/2008 GI upset Penicillins 08/29/1999 1969 anaphylaxis documented as of this encounter (statuses as of 01/30/2024) Medications Medication Sig Dispensed Refills Start Date End Date Status Insulin Pen Needle 32G X 8 MM MISCIndications:Type 2 diabetes mellitus with hemoglobin A1c goal of less than 8.0% ([facility]) Use as directed 2 times a day. To inject insulin. 200 Each 3 08/18/2019 Active Melatonin 3 MG Oral Tablet Disintegrating Take 1 Tablet at bedtime by mouth. 30 Tablet 5 11/06/2021 Active Lactobacillus Extra Strength Oral Capsule Take 1 Capsule daily by mouth. 30 Capsule 0 11/06/2021 Active Acetaminophen ER 650 MG Oral Tablet Extended Release Take 1 Tablet by mouth every 8 hours as needed for Pain, Moderate. 30 Tablet 0 11/06/2021 Active metFORMIN HCl ER 500 MG Oral Tablet Extended Release 24 Hour (Glucophage XR) 1 daily with breakfast x 2 weeks then 2 daily with breakfast 60 Tablet 11 06/21/2022 Active Anna France 33GIndications:Type 2 diabetes mellitus with hemoglobin A1c goal of less than 8.0% ([facility]) Use as directed 4 times per day 400 Each 3 10/18/2022 Active Famotidine 20 MG Oral Tablet (Pepcid)Indications:G astroesophageal reflux disease without esophagitis TAKE 1 TABLET BY MOUTH IN THE MORNING AND 1 TABLET BEFORE BEDTIME 60 Tablet 11 03/23/2023 Active BD Pen Needle Mini U/F 31G X 5 MM (Insulin Pen Needle) Use 4 times daily with insulin injections 100 Each 5 04/24/2023 Active Nystatin 490521 UNIT/GM External Powder (Nystop)Indications:T inea cruris Apply topically to affected area 3 times a day. Apply to scrotum 60 g 2 10/30/2023 Active Triamcinolone Acetonide 0.1 % External Cream (Aristocort) Apply topically to affected area 2 times a day. To affected area. vaseline after 453.6 g 5 10/30/2023 Active documented as of this encounter (statuses as of 01/30/2024) Active Problems Problem Noted Date Diagnosed Date [...] Rotator cuff syndrome of right shoulder 12/29/19 21 Psoriasis 12/28/2020 Major depressive disorder, recurrent episode, [...] No, Advance Directive brochure mailed to patient. Tinea cruris 07/26/2000 documented as of this encounter (statuses as of 01/30/2024) Resolved Problems Problem Noted Date Diagnosed Date [...] as of this encounter (statuses as of 01/30/2024) Immunizations Name Administration Dates Next Due COVID-19 mRNA, LNP-s, No Pre serve, 2-Dose Series ([employer]) 06/07/2021,12/26/2020 H1N1 2009 Influenza, IM 09/01/2009 Hepatitis B, 20+ yrs 05/31/2014,12/10/2013,11/08 Pneumococcal Conjugate Vacci ne, 20-valent ([id number]) 03/07/2022 Pneumococcal Polysaccharide PPV23 (Pneumovax) 04/29/2008 Seasonal [...] oz pur e alcohol) [facility] wine at [facility] PHQ-2 Answer Date Recorded PHQ Adult Total [...] encounter Miscellaneous Notes * Telephone Encounter - Tati Salazar OSA - 10/31/2023 10:43 AM EST 3 day urgent referral placed. flashing lights in right eye all the time. patient said it started 2 weeks before Dariel documented in this encounter Plan of Treatment Upcoming Encounters Date Type Department Care Team (Late st Contact Info) Description 03/30/2024 9:30 AM EDT Telemedicine [facility], [address] [address] Josefina Sam, [address] [address] 04/02/2024 10:30 AM EDT Telemedicine [facility], [address] [id number] Clotilde Alexander, [facility] [address] [place] [address] Health Maintenance Due Date Last Done Comments Hepatitis C Screening 1985 Cologuard 2012 Fecal Occult Blood Test 2012 Sigmoidoscopy 2012 Albumin/Creatinine Ratio 06/02/2021 020, 06/19/2018, 07/11/2017, Additional history exists COVID-19 Vaccine ( season) 2023 06/07/2021, 12/26/2020 Depression, Most Recent Score >= 10 (will fire each visit until score < 10) 12/05/2023 12/04/2023 Diabetic Eye Exam 04/24/2024 04/24/2023, , 02/11/2018, Additional history exists Diabetic Foot Exam 04/24/2024 04/24/2023, 0 03/07/2022, 08/24/2020, Additional history exists HbA1c 05/06/2024 11/06/2023, 02/0 06/2023, 10/18/2022, Additional history exists Influenza Vaccine (FLU shot) (Season Ended) 2024 06/21/2022, 06/29/2021, 07/24/2020, Additional history exists TSH 11/06/2024 11/06/2023, 06/2023, 11/02/2021, Additional history exists GFR 11/29/2024 [...] Not on filedocumented as of this encounter Care Teams Gallery Or Museum Attendant Relationship Specialty Start Date End Date Jennifer Jimenez DO [address] [place] [address] PCP - General Family Medicine 09/17/18 documented as of this encounter
--- OUTSIDE RECORDS SUMMARY | 2024-03-07 13:20 | External Medical Summary | Summary of Care ---
Author Name Unknown Organization [facility] Address [address] [facility] [place] [address] Phone [phone] Care Team Providers Care Inspecting Machine Adjuster Name Role Phone Jennifer Jimenez DO Primary Care Provider Reason for Referral * Evaluate & Treat - Unlimited Visits (Within 30 days (routine)) - Pending Review Specialty Diagnoses / Procedures Referred By Contelizabeth t Referred To Contact Psychiatry Diagnoses Severe episode of recurrent major depressive disorder, without psychotic features (HCC) Jennifer Jimenez DO [address] [place] [address] Referral ID Status Reason Start Date Expiration Date Visits Requested Visits Authorized [id number] Pending Review Specialty Services Required 01/19/[phone] Question Answer Referral Priority Within 30 days (routine) Where should this appointment be scheduled? [facility] Is this referral for medication management? Yes Reason for Referral Depression Reason for Visit * Reason Comments Follow Up 4 week return - pt s tates his depression has worsened and that he doesn't care about most things including taking his medications. Pt states he has had suicidal ideations but "as long as my parents are alive I'm not going to do that to them" Encounter Details Date Type Department Care Team (Late st Contact Info) Description 01/19/2024 2:40 PM EDT Office Visit Family Practice [facility] [address] [place] [address] Jennifer Jimenez DO [address] [place] [id number] Severe episode of recurrent major depressive disorder, without psychotic features ([facility])* Allergies Active Allergy Reactions Criticality Noted Date Comments Doxycycline Hives 08/01/2012 Macrolides And Ketolides 07/15/2000 unknown Morphine And Related 06/11/2008 GI upset Penicillins 08/29/1999 1969 anaphylaxis documented as of this encounter (statuses as of 02/03/2024) Medications Medication Sig Dispensed Refills Start Date End Date Status Insulin Pen Needle 32G X 8 MM MISCIndications:Type 2 diabetes mellitus with hemoglobin A1c goal of less than 8.0% ([facility]) Use as directed 2 times a day. To inject insulin. 200 Each 3 9 Active Melatonin 3 MG Oral Tablet Disintegrating Take 1 Tablet at bedtime by mouth. 30 Tablet 5 2 Active Lactobacillus Extra Strength Oral Capsule Take 1 Capsule daily by mouth. 30 Capsule 0 2 Active Acetaminophen ER 650 MG Oral Tablet Extended Release Take 1 Tablet by mouth every 8 hours as needed for Pain, Moderate. 30 Tablet 0 2 Active metFORMIN HCl ER 500 MG Oral Tablet Extended Release 24 Hour (Glucophage XR) 1 daily with breakfast x 2 weeks then 2 daily with breakfast 60 Tablet 2 Active OneTouch Delica Lancets 33GIndications:Type 2 diabetes mellitus with hemoglobin A1c goal of less than 8.0% ([facility]) Use as directed 4 times per day 400 Each 3 3 Active Famotidine 20 MG Oral Tablet (Pepcid)Indications:Gastr oesophageal reflux disease without esophagitis TAKE 1 TABLET BY MOUTH IN THE MORNING AND 1 TABLET BEFORE BEDTIME 60 Tablet 11 3 Active BD Pen Needle Mini U/F 31G X 5 MM (Insulin Pen Needle) Use 4 times daily with insulin injections 100 Each 5 3 Active Nystatin 064544 UNIT/GM External Powder (Nystop)Indications:Tinea cruris Apply topically to affected area 3 times a day. Apply to scrotum 60 g 2 4 Active Triamcinolone Acetonide 0.1 % External Cream (Aristocort) Apply topically to affected area 2 times a day. To affected area. vaseline after 453.6 g 5 4 Active Lisinopril 20 MG Oral Tablet (Prinivil)Indications:Typ e 2 diabetes mellitus with hyperglycemia, with long-term current use of insulin ([facility]),HTN, goal below 140/90 TAKE ONE TABLET BY MOUTH EVERY MORNING 90 Tablet 3 4 Active Mounjaro 2.5 MG/0.5ML Subcutaneous Solution Pen-injector (Tirzepatide)Indications: Type 2 diabetes mellitus with hemoglobin A1c goal of less than 8.0% (HCC),Type 2 diabetes mellitus with hyperglycemia, with long-term current use of insulin ([facility]) Inject 2.5 mg under the skin once a week. 2 mL 11 4 12/03/19 25 Active Insulin Glargine Solostar 100 UNIT/ML Subcutaneous Solution Pen-injector (Lantus SoloStar)Indications:Type 2 diabetes mellitus with hyperglycemia, with long-term current use of insulin ([facility]) Inject 40 Units under the skin at bedtime. TITRATING DOSE EVERY 2 WEEKS UNTIL BG LESS THAN 180 (Levemir not being made anymore) (up until max dose of 50 units) 45 mL 3 4 Active FLUoxetine HCl 40 MG Oral Capsule (PROzac)Indications:Binge eating disorder Take 1 Capsule by mouth in the morning. 30 Capsule 5 4 Active Clobetasol Propionate 0.05 % External Cream (Temovate)Indications:Nick matitis Apply topically to affected area 2 times a day. To affected area on feet for up to two weeks. 60 g 1 4 Active Levothyroxine Sodium 175 MCG Oral Tablet (Levoxyl)Indications:Acqu ired hypothyroidism Take 1 Tablet by mouth daily first thing in the morning. (at least 30 min prior to breakfast or other meds) 90 Tablet 3 4 Active OneTouch Ultra In Vitro Strip (Glucose Blood) E11.9, use once daily 100 Strip 3 4 Active amLODIPine Besylate 10 MG Oral Tablet (Norvasc)Indications:HTN, goal below 140/90 TAKE ONE TABLET BY MOUTH EVERY MORNING 90 Tablet 3 4 Active Aspirin Low Dose 81 MG Oral Tablet Delayed Release (aspirin enteric coated)Indications:Cerebr ovascular disease, arteriosclerotic, post-stroke TAKE TWO TABLETS BY MOUTH EVERY MORNING 180 Tablet 3 4 Active Rosuvastatin Calcium 20 MG Oral Tablet (Crestor)Indications:Pure hypercholesterolemia TAKE ONE TABLET BY MOUTH EVERY MORNING 90 Tablet 3 4 Active Metoprolol Succinate ER 50 MG Oral Tablet Extended Release 24 Hour (toPROL XL)Indications:HTN, goal below 140/90 TAKE ONE TABLET BY MOUTH EVERY MORNING 90 Tablet 3 4 Active buPROPion HCl ER (XL) 150 MG Oral Tablet Extended Release 24 Hour (Wellbutrin XL)Indications:Severe episode of recurrent major depressive disorder, without psychotic features (HCC) Take 1 Tablet by mouth in the morning. 90 Tablet 3 4 Active documented as of this encounter (statuses as of 02/03/2024) Active Problems Problem Noted Date Diagnosed Date [...] Advance Directive brochure mailed to patient. Donita alberts 07/26/2000 documented as of this encounter (statuses as of 02/03/2024) Resolved Problems Problem Noted Date Diagnosed Date [...] as of this encounter (statuses as of 02/03/2024) Immunizations Name Administration Dates Next Due COVID-19 mRNA, LNP-s, No Pre serve, 2-Dose Series ([employer]) 06/07/2021,12/26/2020 H1N1 2009 Influenza, IM 09/01/2009 Hepatitis B, 20+ yrs 05/31/2014,12/10/2013,11/08 Pneumococcal Conjugate Vacci ne, 20-valent ([id number]) 03/07/2022 Pneumococcal Polysaccharide PPV23 (Pneumovax) 04/29/2008 Seasonal [...] Date Smoking Tobacco: Never Smokeless Tobacco: Never Tobacco Cessation:Counseling Given: Not Answered Alcohol Use Standard Drinks/Week Comments Not Currently 0 (1 standard drink = 0.6 oz pur e alcohol) [facility] wine at [facility] PHQ-2 Answer Date Recorded PHQ [...] on file documented as of this encounter Last Filed Vital Signs Vital Sign Reading Time Taken Comments Blood Pressure 128/80 01/19/2024 2:20 PM EDT Pulse 67 01/19/2024 2:20 PM EDT Temperature 35.7 C (96.2 F) 01/19/2024 2:20 PM ED T Respiratory Rate - - Oxygen Saturation 100% 01/19/2024 2:20 PM EDT Inhaled Oxygen Concentration - - Weight 114.3 kg (252 lb) 01/19/2024 2:20 PM EDT Height 165.1 cm (5' 5") 01/19/2024 2:20 PM EDT Body Mass Index 41.93 01/19/2024 2:20 PM EDT documented in this encounter Progress Notes * Jennifer Jimenez, DO - 01/19/2024 2:32 PM EDT Subjective: Ten Corbin is a 58 year old male. Chief Complaint Patient presents with Follow Up 4 week return - pt states his depression has worsened and that he doesn't care about most things including taking his medications. 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 He does admit that he sometimes has thoughts of hurting himself but never serious thoughts he says he would never do that his parents are still living. In reviewing his medications he admits he often just does not take his medications for days to weeks at a time, loses motivation. And he has stopped taking his Wellbutrin discussed this is for his depression and also helps with the eating disorder says he will restart all of his medications. Also haschronic tinea in groin, discussed this is likely hard to control because of his uncontrolled diabetes when sugars are high yeast tends to go, a big part of controlling the infection along with an antifungal cream will be to control his sugars. PHM: Patient Active Problem List Diagnosis Code Tinea cruris B35.6 ADVANCE DIRECTIVE INFORMATION CEREBROVASCULAR DZ, POST-STROKE I67.2, Z86.73 DYSLIPIDEMIA, GOAL LDL BELOW 100 E78.5 Type 2 diabetes mellitus with hemoglobin A1c goal of less than 8.0% (HCC) E11.9 Severe obstructive sleep apnea G47.33 Acquired hypothyroidism E03.9 HTN, goal below 140/90 I10 Pruritus L29.9 Keratoderma Q82.8 Alopecia areata L63.9 Vitiligo L80 Primary open angle glaucoma of both eyes, moderate stage H40.1132 Major depressive disorder, recurrent episode, moderate (HCC) F33.1 Binge eating disorder F50.81 Erectile dysfunction N52.9 Rotator cuff syndrome of right shoulder M75.101 Psoriasis L40.9 History of sepsis Z86.19 History of diabetic ketoacidosis Z86.39 Iron deficiency anemia due to chronic blood loss D50.0 Elevated alkaline phosphatase measurement R74.8 Diabetic polyneuropathy associated with diabetes mellitus due to underlying condition ([facility]) E08.42 Chronic ankle pain M25.579, G89.29 Chronic pain of left knee M25.562, G89.29 Food insecurity Z59.41 Outpatient Medications Prior to Visit Medication Sig Dispense Refill amLODIPine Besylate 10 MG Oral Tablet (Norvasc) TAKE ONE TABLET BY MOUTH EVERY MORNING 90 Tablet 3 Aspirin Low Dose 81 MG Oral Tablet Delayed Release (aspirin enteric coated) TAKE TWO TABLETS BY MOUTH EVERY MORNING 180 Tablet 3 Metoprolol Succinate ER 50 MG Oral Tablet Extended Release 24 Hour (toPROL XL) TAKE ONE TABLET BY MOUTH EVERY MORNING 90 Tablet 3 Rosuvastatin Calcium 20 MG Oral Tablet (Crestor) TAKE ONE TABLET BY MOUTH EVERY MORNING 90 Tablet 3 Clobetasol Propionate 0.05 % External Cream (Temovate) Apply topically to affected area 2 times a day. To affected area on feet for up to two weeks. 60 g 1 FLUoxetine HCl 40 MG Oral Capsule (PROzac) Take 1 Capsule by mouth in the morning. 30 Capsule 5 Levothyroxine Sodium 175 MCG Oral Tablet (Levoxyl) Take 1 Tablet by mouth daily first thing in the morning. (at least 30 min prior to breakfast or other meds) 90 Tablet 3 OneTouch Ultra In Vitro Strip (Glucose Blood) E11.9, use once daily 100 Strip 3 Insulin Glargine Solostar 100 UNIT/ML Subcutaneous Solution Pen-injector (Lantus SoloStar) Inject 40 Units under the skin at bedtime. TITRATING DOSE EVERY 2 WEEKS UNTIL BG LESS THAN 180 (Levemir not being made anymore) (up until max dose of 50 units) 45 mL 3 Mounjaro 2.5 MG/0.5ML Subcutaneous Solution Pen-injector (Tirzepatide) Inject 2.5 mg under the skinonce a week. 2 mL 11 Lisinopril 20 MG Oral Tablet (Prinivil) TAKE ONE TABLET BY MOUTH EVERY MORNING 90 Tablet 3 Nystatin 330878 UNIT/GM External Powder (Nystop) Apply topically to affected area 3 times a day. Apply to scrotum 60 g 2 Triamcinolone Acetonide 0.1 % External Cream (Aristocort) Apply topically to affected area 2 times a day. To affected area. vaseline after 453.6 g 5 BD Pen Needle Mini U/F 31G X 5 MM (Insulin Pen Needle) Use 4 times daily with insulin injections 100 Each 5 Famotidine 20 MG Oral Tablet (Pepcid) TAKE 1 TABLET BY MOUTH IN THE MORNING AND 1 TABLET BEFORE BEDTIME 60 Tablet 11 OneTouch Delica Lancets 33G Use as directed 4 times per day 400 Each 3 metFORMIN HCl ER 500 MG Oral Tablet Extended Release 24 Hour (Glucophage XR) 1 daily with breakfastx 2 weeks then 2 daily with breakfast 60 Tablet 11 Acetaminophen ER 650 MG Oral Tablet Extended Release Take 1 Tablet by mouth every 8 hours as neededfor Pain, Moderate. 30 Tablet 0 Lactobacillus Extra Strength Oral Capsule Take 1 Capsule daily by mouth. 30 Capsule 0 Melatonin 3 MG Oral Tablet Disintegrating Take 1 Tablet at bedtime by mouth. 30 Tablet 5 Insulin Pen Needle 32G X 8 MM MISC Use as directed 2 times a day. To inject insulin. 200 Each 3 No facility-administered medications prior to visit. Last reviewed on 01/19/2024 2:20 PM by Ana Guillaume MED ASSIST Review of patient's allergies indicates: Allergen Reactions Doxycycline Hives Macrolides And Ketolides unknown Morphine And Related GI upset Penicillins 1969 anaphylaxis Objective: BP 128/80 | Pulse 67 | Temp 35.7 C (96.2 F) (Tympanic) | Ht 1.651 m (5' 5") | Wt 114.3 kg (252 lb) | SpO2 100% | BMI 41.93 kg/m | BSA 2.29 m Physical Exam: General: alert, healthy, and no distress Head: Normocephalic, No masses, lesions, tenderness or abnormalities Neck: supple, no adenopathy, no bruits, thyroid normal size, non-tender, without nodularity Heart: regular rate & rhythm, no murmur, and no gallops Lungs: chest symmetric with normal AP diameter, no chest deformities noted, no chest wall tenderness, lungs clear to auscultation Pulses: carotid=2/4 w/o bruits Extremities: less than 2 second capillary refill, no joint deformities, effusion, or inflammation ASSESSMENT/PLAN: Recommend psychiatry referral for severe depression, patient is motivated to make some changes due to job being in jeopardy. For now restart current medications, check sugars frequently follow diabetic diet, these will all be important to controlled diabetes and yeast infection. Re-evaluate in 1 month see how sugars are doing and make adjustments based on the numbers. Severe episode of recurrent major depressive disorder, without psychotic features (HCC) (Primary) - buPROPion HCl ER (XL) 150 MG Oral Tablet Extended Release 24 Hour (Wellbutrin XL); Take 1 Tablet by mouth in the morning. - ADULT/PEDS PSYCHIATRY REFERRAL OP Follow Up: Return in about 4 weeks (around 02/16/2024), or if symptoms worsen or fail to improve, forClinic Visit. | For: Clinic Visit | Check-out note: psychiatry 25 min spent with patient, reviewing history, performing physical exam, reviewing labs, studies, specialist OVNs, and reports, educating and coordinating care, discussing treatment Jennifer Jimenez DO documented in this encounter Nursing Notes * Ana Guillaume MED ASSIST - 01/19/2024 2:24 PM EDT Chief Complaint Patient presents with Follow Up 4 week return - pt states his depression has worsened and that he doesn't care about most things including taking his medications. Pt states he has had suicidal ideations but "as long as my parents are alive I'm not going to do that to them" documented in this encounter Plan of Treatment Upcoming Encounters Date Type Department Care Team (Late st Contact Info) Description 03/30/2024 9:30 AM EDT Telemedicine [address] [address] Josefina Sam DRY HOUSE OPERATOR [facility] [place] [address] 04/02/2024 10:30 AM EDT Telemedicine [address] [address] Clotilde Alexander LCSW [facility] [place] [address] Scheduled Referrals Name Type Priority Associated Diagnoses Orde r Schedule ADULT/PEDS PSYCHIATRY REFERRAL OP Referral Within 30 days (routine) Severe episode of recurrent major depressive disorder, without psychotic features (HCC) Ordered: 01/19/2024 Health Maintenance Due Date Last Done Comments [...] 07/24/2020, Additional history exists TSH 11/06/2024 11/06/2023, 02/0 [...] as of this encounter Visit Diagnoses Diagnosis Severe episode of recurrent major depressive disorder, without psychotic features (HCC)- Primary documented in this encounter Care Teams Inspecting Machine Adjuster Relationship Specialty Start Date End Date Jennifer Jimenez DO [address] [place] [address] PCP - General Family Medicine 09/17/18 documented as of this encounter
--- OUTSIDE RECORDS SUMMARY | 2024-03-07 13:20 | External Medical Summary | Summary of Care ---
Author Name Unknown Organization [facility] Address [address] [place] [place] [address] Phone [phone] Care Team Providers Care Automobile Contract Clerk Name Role Phone Jennifer Jimenez DO Primary Care Provider Reason for Referral * Evaluate & Treat - Unlimited Visits (Within 30 days (routine)) - Pending Review Specialty Diagnoses / Procedures Referred By Poonam mccray Referred To Contact Psychiatry Diagnoses Moderate episode of recurrent major depressive disorder (HCC) Jennifer Jimenez DO [address] [place] [address] Referral ID Status Reason Start Date Expiration Date Visits Requested Visits Authorized [id number] Pending Review Specialty Services Required 12/23/[phone] Question Answer Referral Priority Within 30 days (routine) Where should this appointment be scheduled? [facility] Is this referral for medication management? Yes Reason for Referral Depression Reason for Visit * Reason Comments Yeast Infection Depression Encounter Details Date Type Department Care Team (Latest Contact Info) Description 12/23/2023 3:20 PM EDT Office Visit Family Practice [facility] [place] [address] [place] [address] Jennifer Jimenez DO [address] [place] [address] Moderate episode of recurrent major depressive disorder (HCC)*; Binge eating disorder; Dermatitis; Diabetic polyneuropathy associated with diabetes mellitus due to underlying condition (HCC); Acquired hypothyroidism Allergies Active Allergy Reactions Criticality Noted Date [...] hemoglobin A1c goal of less than 8.0% ([facility]) Use as directed 2 times a day. To inject insulin. 200 Each 019 Active Melatonin 3 MG Oral Tablet Disintegrating Take 1 Tablet at bedtime by mouth. 30 Tablet Active Lactobacillus Extra Strength Oral Capsule Take 1 Capsule daily by mouth. 30 Capsule 0 Active Acetaminophen ER 650 MG Oral Tablet Extended Release Take 1 Tablet by mouth every 8 hours as needed for Pain, Moderate. 30 Tablet 0 022 Active metFORMIN HCl ER 500 MG Oral Tablet Extended Release 24 Hour (Glucophage XR) 1 daily with breakfast x 2 weeks then 2 daily with breakfast 60 Tablet Active OneTouch Delica Lancets 33GIndications:Type 2 diabetes mellitus with hemoglobin A1c goal of less than 8.0% ([facility]) Use as directed 4 times per day 400 Each 023 Active Famotidine 20 MG Oral Tablet (Pepcid)Indications:Gas troesophageal reflux disease without esophagitis TAKE 1 TABLET BY MOUTH IN THE MORNING AND 1 TABLET BEFORE BEDTIME 60 Tablet 023 Active BD Pen Needle Mini U/F 31G X 5 MM (Insulin Pen Needle) Use 4 times daily with insulin injections 100 Each 023 Active Nystatin 044084 UNIT/GM External Powder (Nystop)Indications:Tin ea cruris Apply topically to affected area 3 times a day. Apply to scrotum 60 g 024 Active Triamcinolone Acetonide 0.1 % External Cream (Aristocort) Apply topically to affected area 2 times a day. To affected area. vaseline after 453.6 g 024 Active Lisinopril 20 MG Oral Tablet (Prinivil)Indications:T ype 2 diabetes mellitus with hyperglycemia, with long-term current use of insulin (HCC),HTN, goal below 140/90 TAKE ONE TABLET BY MOUTH EVERY MORNING 90 Tablet 3 Active Mounjaro 2.5 MG/0.5ML Subcutaneous Solution Pen-injector (Tirzepatide)Indication s:Type 2 diabetes mellitus with hemoglobin A1c goal of less than 8.0% ([facility]),Type 2 diabetes mellitus with hyperglycemia, with long-term current use of insulin ([facility]) Inject 2.5 mg under the skin once a week. 2 mL 11 024 2024 Active Insulin Glargine Solostar 100 UNIT/ML Subcutaneous Solution Pen-injector (Lantus SoloStar)Indications:Ty pe 2 diabetes mellitus with hyperglycemia, with long-term current use of insulin ([facility]) Inject 40 Units under the skin at bedtime. TITRATING DOSE EVERY 2 WEEKS UNTIL BG LESS THAN 180 (Levemir not being made anymore) (up until max dose of 50 units) 45 mL 3 Active FLUoxetine HCl 40 MG Oral Capsule (PROzac)Indications:Bin ge eating disorder Take 1 Capsule by mouth in the morning. 30 Capsule 5 Active Fluconazole 100 MG Oral Tablet (Diflucan) Take 1 Tablet by mouth in the morning for 21 days. Two tablets on the first day, then One tablet once a day for 3 weeks. 22 Tablet 0 024 2023 Active Clobetasol Propionate 0.05 % External Cream (Temovate)Indications:D ermatitis Apply topically to affected area 2 times a day. To affected area on feet for up to two weeks. 60 g 1 Active Levothyroxine Sodium 175 MCG Oral Tablet (Levoxyl)Indications:Ac quired hypothyroidism Take 1 Tablet by mouth daily first thing in the morning. (at least 30 min prior to breakfast or other meds) 90 Tablet 3 Active OneTouch Ultra In Vitro Strip (Glucose Blood) E11.9, use once daily 100 Strip 3 Active Blood Glucose Monitoring Suppl (ONETOUCH ULTRA SYSTEM) w/Device KITIndications:Type 2 diabetes mellitus with hemoglobin A1c goal of less than 8.0% ([facility]) Use as directed 4 times a day as needed for Hyperglycemia (high sugar). Use up to four times a day as directed 1 Kit 0 018 2023 Discontinued(M edication List Clean Up) Blood Glucose Monitoring Suppl (Talkpush ULTRA 2) w/Device KITIndications:Type 2 diabetes mellitus with hemoglobin A1c goal of less than 8.0% (HCC) Use twice daily 1 Kit 0 019 2023 Discontinued(M edication List Clean Up) Clobetasol Propionate 0.05 % External Cream (Temovate)Indications:D ermatitis Apply 2 times a day topically to affected area. To affected area for up to two weeks. 60 g 1 022 2023 Discontinued(R efill) Levothyroxine Sodium 175 MCG Oral Tablet (Levoxyl)Indications:Ac quired hypothyroidism TAKE ONE TABLET BY MOUTH EVERY MORNING AT LEAST 30 MINUTES PRIOR TO BREAKFAST OR OTHER MEDICATIONS 90 Tablet 3 023 2023 Discontinued(R efill) Aspirin Low Dose 81 MG Oral Tablet Delayed Release (aspirin enteric coated)Indications:Cere brovascular disease, arteriosclerotic, post-stroke TAKE TWO TABLETS BY MOUTH EVERY MORNING 180 Tablet 3 023 2023 Discontinued FLUoxetine HCl 40 MG Oral Capsule (PROzac)Indications:Bin ge eating disorder Take 1 Capsule by mouth in the morning. 30 Capsule 5 023 2023 Discontinued(R efill) amLODIPine Besylate 10 MG Oral Tablet (Norvasc)Indications:HT N, goal below 140/90 TAKE ONE TABLET BY MOUTH EVERY MORNING 90 Tablet 1 023 2023 Discontinued Metoprolol Succinate ER 50 MG Oral Tablet Extended Release 24 Hour (toPROL XL)Indications:HTN, goal below 140/90 TAKE ONE TABLET BY MOUTH EVERY MORNING 90 Tablet 1 023 2023 Discontinued Rosuvastatin Calcium 20 MG Oral Tablet (Crestor)Indications:Pu re hypercholesterolemia TAKE ONE TABLET BY MOUTH EVERY MORNING 90 Tablet 0 023 2023 Discontinued documented as of this encounter (statuses [...] yrs 05/31/2014,12/10/2013,11/08 Pneumococcal Conjugate Vacci ne, 20-valent ([id number]) 03/07/2022 Pneumococcal Polysaccharide PPV23 (Pneumovax) 04/29/2008 Seasonal [...] oz pur e alcohol) comunion wine at advent PHQ-2 Answer Date Recorded PHQ Adult Total [...] Sign Reading Time Taken Comments Blood Pressure 134/84 12/23/2023 3:15 PM EDT Pulse 76 12/23/2023 3:15 PM EDT Temperature 35.9 C (96.7 F) 12/23/2023 3:15 PM ED T Respiratory Rate 18 12/23/2023 3:15 PM EDT Oxygen Saturation 99% 12/23/2023 3:15 PM EDT Inhaled Oxygen Concentration - - Weight 118.8 kg (262 lb) 12/23/2023 3:15 PM EDT Height - - Body Mass Index 43.6 10/30/2023 6:22 PM EST documented in this encounter Progress Notes * Jennifer Jimenez, - 01/06/2024 3:39 PM EDT Subjective: Ten Corbin is a 58 year old male. Chief Complaint Patient presents with Yeast Infection Depression HPI: Ten Corbin presents with complaints of ongoing yeast infection & "severe depression" PHM: Patient Active Problem List Diagnosis Code [...] with diabetes mellitus due to underlying condition (HCC) E08.42 Chronic ankle pain M25.579, G89.29 Chronic pain of left knee M25.562, G89.29 Food insecurity Z59.41 Outpatient Medications Prior to Visit Medication Sig Dispense Refill Insulin Glargine Solostar 100 UNIT/ML Subcutaneous Solution [...] MOUTH EVERY MORNING 90 Tablet 3 Nystatin 267400 UNIT/GM External Powder (Nystop) Apply topically to affected area 3 times a day. Apply to scrotum 60 g 2 Triamcinolone Acetonide 0.1 % External Cream (Aristocort) Apply topically to affected area 2 times a day. To affected area. vaseline after 453.6 g 5 [DISCONTINUED] Rosuvastatin Calcium 20 MG Oral Tablet (Crestor) TAKE ONE TABLET BY MOUTH EVERY MORNING 90 Tablet 0 [DISCONTINUED] amLODIPine Besylate 10 MG Oral Tablet (Norvasc) TAKE ONE TABLET BY MOUTH EVERY MORNING 90 Tablet 1 [DISCONTINUED] Metoprolol Succinate ER 50 MG Oral Tablet Extended Release 24 Hour (toPROL XL) TAKE ONE TABLET BY MOUTH EVERY MORNING 90 Tablet 1 BD Pen Needle Mini U/F 31G X 5 MM (Insulin Pen Needle) Use 4 times daily with insulin injections 100 Each 5 [DISCONTINUED] FLUoxetine HCl 40 MG Oral Capsule (PROzac) Take 1 Capsule by mouth in the morning. 30 Capsule 5 Famotidine 20 MG Oral Tablet (Pepcid) TAKE 1 TABLET BY MOUTH IN THE MORNING AND 1 TABLET BEFORE BEDTIME 60 Tablet 11 [DISCONTINUED] Aspirin Low Dose 81 MG Oral Tablet Delayed Release (aspirin enteric coated) TAKE TWOTABLETS BY MOUTH EVERY MORNING 180 Tablet 3 [DISCONTINUED] Levothyroxine Sodium 175 MCG Oral Tablet (Levoxyl) TAKE ONE TABLET BY MOUTH EVERY MORNING AT LEAST 30 MINUTES PRIOR TO BREAKFAST OR OTHER MEDICATIONS 90 Tablet 3 OneTouch Delica Lancets 33G Use as directed [...] as neededfor Pain, Moderate. 30 Tablet 0 [DISCONTINUED] Clobetasol Propionate 0.05 % External Cream (Temovate) Apply 2 times a day topicallyto affected area. To affected area for up to two weeks. 60 g 1 Lactobacillus Extra Strength Oral Capsule Take 1 Capsule daily by mouth. 30 Capsule 0 Melatonin 3 MG Oral Tablet Disintegrating Take 1 Tablet at bedtime by mouth. 30 Tablet 5 Insulin Pen Needle 32G X 8 MM MISC Use as directed 2 times a day. To inject insulin. 200 Each 3 [DISCONTINUED] Blood Glucose Monitoring Suppl (ONETOUCH ULTRA 2) w/Device KIT Use twice daily (Patient not taking: Reported on 12/04/2023) 1 Kit 0 [DISCONTINUED] Blood Glucose Monitoring Suppl (ONETOUCH ULTRA SYSTEM) w/Device KIT Use as directed 4 times a day as needed for Hyperglycemia (high sugar). Use up to four times a day as directed (Patient not taking: Reported on 12/04/2023) 1 Kit 0 No facility-administered medications prior to visit. Last reviewed on 12/23/2023 3:14 PM by Sarika Wallace LPN Review of patient's allergies indicates: Allergen Reactions Doxycycline Hives Macrolides And Ketolides unknown Morphine And Related GI upset Penicillins 1969 anaphylaxis Objective: BP 134/84 | Pulse 76 | Temp 35.9 C (96.7 F) (Tympanic) | Resp 18 | Wt 118.8 kg (262 lb) | SpO2 99% | BMI 43.60 kg/m | BSA 2.33 m Physical Exam: General: alert, healthy, and [...] no joint deformities, effusion, or inflammation ASSESSMENT/PLAN: Moderate episode of recurrent major depressive disorder (HCC) (Primary) - ADULT/PEDS PSYCHIATRY REFERRAL OP Binge eating disorder - FLUoxetine HCl 40 MG Oral Capsule (PROzac); Take 1 Capsule by mouth in the morning. Dermatitis - Clobetasol Propionate 0.05 % External Cream (Temovate); Apply topically to affected area 2 times a day. To affected area on feet for up to two weeks. Diabetic polyneuropathy associated with diabetes mellitus due to underlying condition (HCC) - HEMOGLOBIN A1C; Future; Expected date: 12/23/2023 Acquired hypothyroidism - Levothyroxine Sodium 175 MCG Oral Tablet (Levoxyl); Take 1 Tablet by mouth daily first thing in the morning. (at least 30 min prior to breakfast or other meds) - TSH WITH FREE T4 IF INDICATED; Future; Expected date: 12/23/2023 Other orders - Fluconazole 100 MG Oral Tablet (Diflucan); Take 1 Tablet by mouth in the morning for 21 days. Twotablets on the first day, then One tablet once a day for 3 weeks. - OneTouch Ultra In Vitro Strip (Glucose Blood); E11.9, use once daily Follow Up: Return in about 4 weeks (around 01/20/2024), or if symptoms worsen or fail to improve, forClinic Visit. | For: Clinic Visit 25 min spent with patient, reviewing history, performing physical exam, reviewing labs, studies, specialist OVNs, and reports, educating and coordinating care, discussing treatment Jennifer Jimenez DO documented in this encounter Nursing Notes * Sarika Wallace LPN - 12/23/2023 3:14 PM EDT Ten Corbin presents with complaints of ongoing yeast infection & "severe depression" documented in this encounter Plan of Treatment Upcoming Encounters Date Type Department Care Team (Late st Contact Info) Description 01/19/2024 2:40 PM EDT Office Visit Family Practice [facility] [place] [address] [facility] [place] [address] Jennifer Jimenez, [address] [facility] [place] [address] 04/02/2024 10:30 AM EDT Telemedicine [facility] [place] [address], [place] [id number] Clotilde Alexander [facility] [address] [place] [address] Scheduled Orders Name Type Priority Associated Diagnoses Orde r Schedule TSH WITH FREE T4 IF INDICATED Lab Routine Acquired hypothyroidism Expected: 12/23/2023 (Approximate), Expires: 12/22/2024 HEMOGLOBIN A1C Lab Routine Diabetic polyneuropathy associated with diabetes mellitus due to underlying condition (HCC) Expected: 12/23/2023 (Approximate), Expires: 12/22/2024 Scheduled Referrals Name Type Priority Associated Diagnoses Orde r Schedule ADULT/PEDS PSYCHIATRY REFERRAL OP Referral Within 30 days (routine) Moderate episode of recurrent major depressive disorder (HCC) Ordered: 12/23/2023 Health Maintenance Due Date Last Done Comments Hepatitis C Screening 1985 Cologuard 2012 Fecal Occult Blood Test 2012 Sigmoidoscopy 2012 Albumin/Creatinine Ratio 06/02/2021 082 020, 06/19/2018, 07/11/2017, Additional history exists COVID-19 [...] as of this encounter Visit Diagnoses Diagnosis Moderate episode of recurrent major depressive disorder (HCC)- Primary Binge eating disorder Dermatitis Contact dermatitis and other eczema, due to unspecified cause Diabetic polyneuropathy associated with diabetes mellitus due to underlying condition (HCC) Acquired hypothyroidism Unspecified hypothyroidism documented in this encounter Care Teams Automobile Contract Clerk Relationship Specialty Start Date End Date Jennifer Jimenez DO [address] [place], [place] [address] PCP - General Family Medicine 09/17/18 documented as of this encounter
--- OUTSIDE RECORDS SUMMARY | 2024-03-07 13:20 | External Medical Summary | Summary of Care ---
Author Name Unknown Organization [facility] Address [address] [facility] [place] [address] Phone [phone] Care Team Providers Care Packaging Specialist Name Role Phone Jennifer Jimenez DO Primary Care Provider Encounter Details Date Type Department Care Team (Late st Contact Info) Description 03/05/2024 Orders Only Family Practice [facility] [address] [place] [address] Jennifer Jimenez DO [address] [facility] [place] [address] Allergies Active Allergy Reactions Criticality Noted Date Comments Doxycycline Hives 08/01/2012 Macrolides And Ketolides 07/15/2000 unknown Morphine And Related 06/11/2008 GI upset Penicillins 08/29/1999 1969 anaphylaxis documented as of this encounter (statuses as of 03/05/2024) Medications Medication Sig Dispensed Refills Start Date End Date Status Insulin Pen Needle 32G X 8 MM MISCIndications:Type 2 diabetes mellitus with hemoglobin A1c goal of less than 8.0% ([facility]) Use as directed 2 times a day. To inject insulin. 200 Each 3 9 Active Melatonin 3 MG Oral Tablet Disintegrating Take 1 Tablet at bedtime by mouth. 30 Tablet 5 2 Active Lactobacillus Extra Strength Oral Capsule Take 1 Capsule daily by mouth. 30 Capsule 2 Active Acetaminophen ER 650 MG Oral Tablet Extended Release Take 1 Tablet by mouth every 8 hours as needed for Pain, Moderate. 30 Tablet 2 Active metFORMIN HCl ER 500 MG Oral Tablet Extended Release 24 Hour (Glucophage XR) 1 daily with breakfast x 2 weeks then 2 daily with breakfast 60 Tablet 11 2 Active OneTouch Deljames Lancets 33GIndications:Type 2 diabetes mellitus with hemoglobin A1c goal of less than 8.0% ([facility]) Use as directed 4 times per day 400 Each 3 3 Active Famotidine 20 MG Oral Tablet (Pepcid)Indications:Gastr oesophageal reflux disease without esophagitis TAKE 1 TABLET BY MOUTH IN THE MORNING AND 1 TABLET BEFORE BEDTIME 60 Tablet 3 Active BD Pen Needle Mini U/F 31G X 5 MM (Insulin Pen Needle) Use 4 times daily with insulin injections 100 Each 5 3 Active Nystatin 800180 UNIT/GM External Powder (Nystop)Indications:Tinea cruris Apply topically [...] with long-term current use of insulin ([facility]),HTN, goal below 140/90 TAKE ONE TABLET BY MOUTH EVERY MORNING 90 Tablet 3 4 Active Mounjaro 2.5 MG/0.5ML Subcutaneous Solution Pen-injector (Tirzepatide)Indications: Type 2 diabetes mellitus with hemoglobin A1c goal of less than 8.0% ([facility]),Type 2 diabetes mellitus with hyperglycemia, with long-term current use of insulin ([facility]) Inject 2.5 mg under the skin once a week. 2 mL 4 12/03/19 25 Active Insulin Glargine Solostar 100 UNIT/ML Subcutaneous Solution Pen-injector (Lantus SoloStar)Indications:Type 2 diabetes mellitus with hyperglycemia, with long-term current use of insulin ([facility]) Inject 40 Units under the skin at [...] as of this encounter (statuses as of 03/05/2024) Active Problems Problem Noted Date Diagnosed Date Food insecurity 12/22/2023 Overview: Per [facility] Protocol Chronic ankle pain 05/02/2023 [...] as of this encounter (statuses as of 03/05/2024) Resolved Problems Problem Noted Date Diagnosed Date [...] as of this encounter (statuses as of 03/05/2024) Immunizations Name Administration Dates Next Due COVID-19 mRNA, LNP-s, No Pre serve, 2-Dose Series (Pfizer) 06/07/2021,12/26/2020 H1N1 2009 Influenza, IM 09/01/2009 Hepatitis B, 20+ yrs 05/31/2014,12/10/2013,11/08 Pneumococcal Conjugate Vacci ne, 20-valent ([id number]) 03/07/2022 Pneumococcal Polysaccharide PPV23 (Pneumovax) 04/29/2008 Seasonal [...] oz pur e alcohol) comunion wine at yarsanism PHQ-2 Answer Date Recorded PHQ Adult Total [...] on file documented as of this encounter Plan of Treatment Upcoming Encounters Date Type Department Care Team (Late st Contact Info) Description 03/30/2024 9:30 AM EDT Telemedicine Psychology [address] [place] [address] [place] [address] Josefina Sam, [employer] [address] [place] [address] 04/02/2024 10:30 AM EDT Telemedicine Psychology [place] [address] [place] [address] Clotilde Alexander, [employer] [address] [place] [address] Health Maintenance Due Date Last Done Comments Hepatitis C Screening 1985 Cologuard 2012 Fecal Occult Blood Test 2012 Sigmoidoscopy 2012 Albumin/Creatinine Ratio 06/02/2021 020, 06/19/2018, 07/11/2017, Additional history exists COVID-19 Vaccine ( season) 2023 06/07/2021, 12/26/2020 Depression, Most Recent Score >= 10 (will fire each visit until score < 10) 12/05/2023 12/04/2023 Diabetic Foot Exam 04/24/2024 04/24/2023, 0 03/07/2022, 08/24/2020, Additional history exists HbA1c 05/06/2024 11/06/2023, 02/0 06/2023, 10/18/2022, Additional history exists Influenza Vaccine (FLU shot) (Season Ended) 2024 06/21/2022, 06/29/2021, 07/24/2020, Additional history exists TSH 11/06/2024 11/06/2023, 02/0 06/2023, 11/02/2021, Additional history exists GFR 11/29/2024 11/29/2023, 10/14, 11/21/2022, Additional history exists Diabetic Eye Exam 03/05/2025 03/04/2024, , 02/23/2020, Additional history exists Colonoscopy 07/25/2027 07/25/2017 Colorectal [...] Not on filedocumented as of this encounter Procedures Procedure Name Priority Date/Time Associated Diagnosis Comments DIABETIC EYE EXAM Routine 03/04/2024 documented in this encounter Results * DIABETIC EYE EXAM (03/04/2024) 03/04/2024 History Per Patient OTHER OUTSIDE LAB (SEE SCANNED REPORT) documented in this encounter Care Teams Packaging Specialist Relationship Specialty Start Date End Date Jennifer Jimenez DO [facility] [place] [address] PCP - General Family Medicine 09/17/18 documented as of this encounter
--- OUTSIDE RECORDS SUMMARY | 2024-03-07 13:20 | External Medical Summary | Summary of Care ---
Author Name Unknown Organization [facility] Address [address] [facility] [address] Phone [phone] Care Team Providers Care Sociology Professor Name Role Phone Jennifer Jimenez DO Primary Care Provider Reason for Visit * Reason Comments eRx-Medication Refill Encounter Details Date Type Department Care Team (Late st Contact Info) Description 01/06/2024 Refill Pharmacy, [facility] [address] [facility] [place] [address] Jennifer Jimenez DO [address] [facility] [place] [address] Type 2 diabetes mellitus with hyperglycemia, with long-term current use of insulin ([facility]) Allergies Active Allergy Reactions Criticality Noted Date [...] with breakfast 60 Tablet 11 2 Active CasiMariah Simonsjames Edilma 33GIndications:Type 2 diabetes mellitus with hemoglobin A1c goal of less than 8.0% ([facility]) Use as directed 4 times per day 400 Each 3 3 Active Aspirin Low Dose 81 MG Oral Tablet Delayed Release (aspirin enteric coated)Indications:Cerebr ovascular disease, arteriosclerotic, post-stroke TAKE TWO TABLETS BY MOUTH EVERY MORNING 180 Tablet 3 3 Active Famotidine 20 MG Oral Tablet (Pepcid)Indications:Gastr oesophageal reflux disease without esophagitis TAKE 1 TABLET BY MOUTH IN THE MORNING AND 1 TABLET BEFORE BEDTIME 60 Tablet 11 3 Active BD Pen Needle Mini U/F 31G X 5 MM (Insulin Pen Needle) Use 4 times daily with insulin injections 100 Each 5 3 Active amLODIPine Besylate 10 MG Oral Tablet (Norvasc)Indications:HTN, goal below 140/90 TAKE ONE TABLET BY MOUTH EVERY MORNING 90 Tablet 1 3 Active Metoprolol Succinate ER 50 MG Oral Tablet Extended Release 24 Hour (toPROL XL)Indications:HTN, goal below 140/90 TAKE ONE TABLET BY MOUTH EVERY MORNING 90 Tablet 1 3 Active Rosuvastatin Calcium 20 MG Oral Tablet (Crestor)Indications:Pure hypercholesterolemia TAKE ONE TABLET BY MOUTH EVERY MORNING 90 Tablet 0 3 Active Nystatin 905277 UNIT/GM External Powder (Nystop)Indications:Tinea cruris Apply topically [...] the morning. 30 Capsule 5 4 Active Fluconazole 100 MG Oral Tablet (Diflucan) Take 1 Tablet by mouth in the morning for 21 days. Two tablets on the first day, then One tablet once a day for 3 weeks. 22 Tablet 0 4 01/13/20 24 Active Clobetasol Propionate 0.05 % External Cream [...] once daily 100 Strip 3 4 Active documented as of this encounter (statuses as of 01/06/2024) Active Problems Problem Noted Date Diagnosed Date Food insecurity 12/22/2023 Overview: Per [facility] Protocol Chronic ankle pain 05/02/2023 [...] yrs 05/31/2014,12/10/2013,11/08 Pneumococcal Conjugate Vacci ne, 20-valent ([id number]) 03/07/2022 Pneumococcal Polysaccharide PPV23 (Pneumovax) 04/29/2008 Seasonal [...] encounter Miscellaneous Notes * Telephone Encounter - Luz Maria Hernandez RPh - 01/06/2024 7:30 AM EDTRefused Prescriptions: Disp Refills Levemir FlexPen 100 UNIT/ML Subcutaneous S*15 mL 11 Sig: [id number] UNITS UNDER THE SKIN BEFORE BEDTIME, TITRATING DOSE EVERY 2 WEEKS UNTIL BG LESS THAN 180Refused By: LUZ MARIA LOGAN VReason for Refusal: Other (comment below)Reason for Refusal Comment: Changed to Basaglar 12/11/23 due to levemir taken off market * Telephone Encounter - Luz Maria Hernandez RPh - 01/06/2024 7:27 AM EDT Levemir changes to Basaglar 12/11/23. Luz Maria Logan RPh, [facility] Clinical Pharmacist Medication [facility] 01/06/2024, 7:29 AM documented in this encounter Plan of Treatment Upcoming Encounters Date Type Department Care Team (Late st Contact Info) Description 01/19/2024 2:40 PM EDT Office Visit Family Practice [facility] [address], [place] [address] Jennifer Jimenez DO [address] [place], [place] [address] 04/02/2024 10:30 AM EDT Telemedicine [facility], [place] [address] [place] [address] Clotilde Alexander, [facility] [address] [place] [address] Health Maintenance Due Date Last Done Comments [...] as of this encounter Visit Diagnoses Diagnosis Type 2 diabetes mellitus with hyperglycemia, with long-term current use of insulin (HCC) documented in this encounter Care Teams Sociology Professor Relationship Specialty Start Date End Date Jennifer Jimenez DO [address] [place] [address] PCP - General Family Medicine 09/17/18 documented as of this encounter
--- OUTSIDE RECORDS SUMMARY | 2024-03-07 13:20 | External Medical Summary | Summary of Care ---
Author Name Unknown Organization [facility] Address [address] [facility] [place] [address] Phone [phone] Care Team Providers Care Crop Specialist Name Role Phone Jennifer Jimenez DO Primary Care Provider Reason for Visit * Reason Comments eRx-Medication Refill Encounter Details Date Type Department Care Team (Late st Contact Info) Description 12/13/2023 Refill Pharmacy, [facility] [address] [facility] [place] [address] Jennifer Jimenez DO [address] [facility] [place] [address] Type 2 diabetes mellitus with hyperglycemia, with long-term current use of insulin (HCC) Allergies Active Allergy Reactions Criticality Noted Date Comments Doxycycline Hives 08/01/2012 Macrolides And Ketolides 07/15/2000 unknown Morphine And Related 06/11/2008 GI upset Penicillins 08/29/1999 1969 anaphylaxis documented as of this encounter (statuses as of 12/15/2023) Medications Medication Sig Dispensed Refills Start Date End Date Status Blood Glucose Monitoring Suppl (ONETOUCH ULTRA SYSTEM) w/Device KITIndications:Type 2 diabetes mellitus with hemoglobin A1c goal of less than 8.0% (HCC) Use as directed 4 times a day as needed for Hyperglycemia (high sugar). Use up to four times a day as directed 1 Kit 0 8 Active Additional Information Patient not taking.Reported on 12/04/2023 Blood Glucose Monitoring Suppl (ONETOUCH ULTRA 2) w/Device KITIndications:Type 2 diabetes mellitus with hemoglobin A1c goal of less than 8.0% (HCC) Use twice daily 1 Kit 0 9 Active Additional Information Patient not taking.Reported on 12/04/2023 Insulin Pen Needle 32G X 8 MM MISCIndications:Type 2 diabetes mellitus with hemoglobin A1c goal of less than 8.0% ([facility]) Use as directed 2 times a [...] Pain, Moderate. 30 Tablet 0 2 Active Clobetasol Propionate 0.05 % External Cream (Temovate)Indications:De rmatitis Apply 2 times a day topically to affected area. To affected area for up to two weeks. 60 g 1 2 Active metFORMIN HCl ER 500 MG Oral Tablet Extended Release 24 Hour (Glucophage XR) 1 daily with breakfast x 2 weeks then 2 daily with breakfast 60 Tablet 11 2 Active OneTouch Delica Lancets 33GIndications:Type 2 diabetes mellitus with hemoglobin A1c goal of less than 8.0% ([facility]) Use as directed 4 times per day 400 Each 3 3 Active Levothyroxine Sodium 175 MCG Oral Tablet (Levoxyl)Indications:Acq uired hypothyroidism TAKE ONE TABLET BY MOUTH EVERY MORNING AT LEAST 30 MINUTES PRIOR TO BREAKFAST OR OTHER MEDICATIONS 90 Tablet 3 3 Active Aspirin Low Dose 81 MG Oral Tablet Delayed Release (aspirin enteric coated)Indications:Cereb rovascular disease, arteriosclerotic, post-stroke TAKE TWO TABLETS BY MOUTH EVERY MORNING 180 Tablet 3 3 Active Famotidine 20 MG Oral Tablet (Pepcid)Indications:Maria Elena roesophageal reflux disease without esophagitis TAKE 1 TABLET BY MOUTH IN THE MORNING AND 1 TABLET BEFORE BEDTIME 60 Tablet 11 3 Active BD Pen Needle Mini U/F 31G X 5 MM (Insulin Pen Needle) Use 4 times daily with insulin injections 100 Each 5 3 Active FLUoxetine HCl 40 MG Oral Capsule (PROzac)Indications:Estrellita e eating disorder Take 1 Capsule by mouth in the morning. 30 Capsule 5 3 Active amLODIPine Besylate 10 MG [...] MORNING 90 Tablet 0 3 Active Nystatin 075143 UNIT/GM External Powder (Nystop)Indications:Viki a cruris Apply topically to affected area 3 times a day. Apply to scrotum 60 g 2 4 Active Triamcinolone Acetonide 0.1 % External Cream (Aristocort) Apply topically to affected area 2 times a day. To affected area. vaseline after 453.6 g 5 4 Active Lisinopril 20 MG Oral Tablet (Prinivil)Indications:Ty pe 2 diabetes mellitus with hyperglycemia, with long-term current use of insulin ([facility]),HTN, goal below 140/90 TAKE ONE TABLET BY MOUTH EVERY MORNING 90 Tablet 3 4 Active Mounjaro 2.5 MG/0.5ML Subcutaneous Solution Pen-injector (Tirzepatide)Indications :Type 2 diabetes mellitus with hemoglobin A1c goal of less than 8.0% (HCC),Type 2 diabetes mellitus with hyperglycemia, with long-term current use of insulin ([facility]) Inject 2.5 mg under the skin once a week. 2 mL 11 4 025 Active Insulin Glargine Solostar 100 UNIT/ML Subcutaneous Solution Pen-injector (Lantus SoloStar)Indications:Typ e 2 diabetes mellitus with hyperglycemia, with long-term current use of insulin ([facility]) Inject 40 Units under the skin at bedtime. TITRATING DOSE EVERY 2 WEEKS UNTIL BG LESS THAN 180 (Levemir not being made anymore) (up until max dose of 50 units) 45 mL 3 4 Active documented as of this encounter (statuses as of 12/15/2023) Active Problems Problem Noted Date Diagnosed Date Chronic ankle pain 05/02/2023 Chronic pain of [...] as of this encounter (statuses as of 12/15/2023) Resolved Problems Problem Noted Date Diagnosed Date [...] as of this encounter (statuses as of 12/15/2023) Immunizations Name Administration Dates Next Due COVID-19 mRNA, LNP-s, No Pre serve, 2-Dose Series (Pfizer) 06/07/2021,12/26/2020 H1N1 2009 Influenza, IM 09/01/2009 Hepatitis B, 20+ yrs 05/31/2014,12/10/2013,11/08 Pneumococcal Conjugate Vacci ne, 20-valent ([id number]) 03/07/2022 Pneumococcal Polysaccharide PPV23 (Pneumovax) 04/29/2008 Seasonal [...] oz pur e alcohol) comunion wine at [facility] PHQ-2 Answer Date Recorded PHQ Adult Total [...] Encounter - Luz Maria Hernandez RPh - 12/15/2023 7:38 AM ESTRefused Prescriptions: Disp Refills Levemir FlexPen 100 UNIT/ML Subcutaneous S*15 mL 11 Sig: [id number] UNITS UNDER THE SKIN BEFORE BEDTIME, TITRATING DOSE EVERY 2 WEEKS UNTIL BG LESS THAN 180Refused By: LUZ MARIA JIANG VReason for Refusal: Other (comment below) documented in this encounter Plan of Treatment Health Maintenance Due Date Last Done Comments Hepatitis C Screening 1985 Cologuard 2012 Fecal Occult Blood Test 2012 Sigmoidoscopy 2012 Albumin/Creatinine Ratio 06/02/2021 020, 06/19/2018, 07/11/2017, Additional history exists COVID-19 Vaccine (2022- season) 2023 06/07/2021, 12/26/2020 Influenza Vaccine (FLU [...] (HCC) documented in this encounter Care Teams Crop Specialist Relationship Specialty Start Date End Date Jennifer Jimenez DO [address] [place] [address] PCP - General Family Medicine 09/17/18 documented as of this encounter
--- OUTSIDE RECORDS SUMMARY | 2024-03-07 13:20 | External Medical Summary | Summary of Care ---
Author Name Unknown Organization [facility] Address [address] [facility] [place] [address] Phone [phone] Care Team Providers Care Gate Person Name Role Phone Jennifer Jimenez DO Primary Care Provider Reason for Visit * Reason Onset Date Comments Test Results 11/07/2023 Encounter Details Date Type Department Care Team (Late st Contact Info) Description 11/07/2023 Telephone Family Practice [facility] [place] [address] [facility] [place] [address] Jennifer Jimenez DO [address] [facility] [place] [address] Test Results Allergies Active Allergy Reactions Criticality Noted Date Comments Doxycycline Hives 08/01/2012 Macrolides And Ketolides 07/15/2000 unknown Morphine And Related 06/11/2008 GI upset Penicillins 08/29/1999 1969 anaphylaxis documented as of this encounter (statuses as of 02/06/2024) Medications Medication Sig Dispensed Refills Start Date End Date Status Insulin Pen Needle 32G X 8 MM MISCIndications:Type 2 diabetes mellitus with hemoglobin A1c goal of less than 8.0% ([facility]) Use as directed 2 times [...] hemoglobin A1c goal of less than 8.0% ([facility]) Use as directed 4 times [...] injections 100 Each 5 04/24/2023 Active Nystatin 925348 UNIT/GM External Powder (Nystop)Indications:T inea cruris Apply topically to affected area 3 times a day. Apply to scrotum 60 g 2 10/30/2023 Active Triamcinolone Acetonide 0.1 % External Cream (Aristocort) Apply topically to affected area 2 times a day. To affected area. vaseline after 453.6 g 5 10/30/2023 Active Lisinopril 20 MG Oral Tablet (Prinivil)Indications :Type 2 diabetes mellitus with hyperglycemia, with long-term current use of insulin (HCC),HTN, goal below 140/90 TAKE ONE TABLET BY MOUTH EVERY MORNING 90 Tablet 3 11/07/2023 Active documented as of this encounter (statuses as of 02/06/2024) Active Problems Problem Noted Date Diagnosed Date Food insecurity 12/22/2023 Overview: Per [facility] Protocol Chronic ankle pain 05/02/2023 [...] as of this encounter (statuses as of 02/06/2024) Resolved Problems Problem Noted Date Diagnosed Date [...] as of this encounter (statuses as of 02/06/2024) Immunizations Name Administration Dates Next Due COVID-19 mRNA, LNP-s, No Pre serve, 2-Dose Series (Pfizer) 06/07/2021,12/26/2020 H1N1 2009 Influenza, IM 09/01/2009 Hepatitis B, 20+ yrs 05/31/2014,12/10/2013,11/08 Pneumococcal Conjugate Vacci ne, 20-valent ([id number]) 03/07/2022 Pneumococcal Polysaccharide PPV23 (Pneumovax) 04/29/2008 Seasonal [...] oz pur e alcohol) comunion wine at [facility] PHQ-2 Answer Date Recorded PHQ Adult [...] encounter Miscellaneous Notes * Telephone Encounter - Becki Rojas RN - 11/18/2023 2:10 PM EST Left message for pt to call regarding below. Letter was sent and pt has upcoming appt on 11/14/23. * Telephone Encounter - Becki Rojas RN - 11/13/2023 12:22 PM EST Left message for pt to call back. * Telephone Encounter - Brittani Douglas LPN - 11/07/2023 1:42 PM EST Attempted to call patient, no answer, left message to return our call. * Telephone Encounter - Brittani Douglas LPN - 11/07/2023 1:40 PM EST ----- Message from Danis Mariano III, MD sent at 11/07/2023 1:36 PM EST ----- Call please A1c worsened MTM referrals have been placed in the past but has not followed through would strongly encourage appointment with them if amenable * Telephone Encounter - Brittani Douglas LPN - 11/07/2023 1:39 PM EST ----- Message from Corry Valdovinos PA-C sent at 11/06/2023 7:35 PM EST ----- Please call inform patient glucose was extremely out of range was 422. Is he taking his medicine? documented in this encounter Plan of Treatment Upcoming Encounters Date Type Department Care Team (Colby pepe Contact Info) Description 03/30/2024 9:30 AM EDT Telemedicine Psychology, [place] [address] [place] [address] Josefina Sam, [facility] [address] [place] [address] 04/02/2024 10:30 AM EDT Telemedicine Psychology, [place] [address] [place] [address] Clotilde Alexander, [facility] [address] [place] [address] Health Maintenance Due Date Last Done Comments [...] filedocumented as of this encounter Care Teams Gate Person Relationship Specialty Start Date End Date Jennifer Jimenez DO [address] [place] [address] PCP - General Family Medicine 09/17/18 documented as of this encounter
--- OUTSIDE RECORDS SUMMARY | 2024-03-07 13:20 | External Medical Summary | Summary of Care ---
Author Name Unknown Organization [facility] Address [address] [facility] [place] [address] Phone [phone] Care Team Providers Care Sap Administrator Name Role Phone Jennifer Jimenez Primary Care Provider Encounter Details Date Type Department Care Team (Late st Contact Info) Description 12/24/2023 Orders Only PATIENT PORTAL DO NOT DELETE THIS DEPT USED BY [place] [id number] Allergies Active Allergy Reactions Criticality Noted Date Comments Doxycycline Hives 08/01/2012 Macrolides And Ketolides 07/15/2000 unknown Morphine And Related 06/11/2008 GI upset Penicillins 08/29/1999 1969 anaphylaxis documented as of this encounter (statuses as of 12/24/2023) Medications Medication Sig Dispensed Refills Start Date End Date Status Insulin Pen Needle 32G X 8 MM MISCIndications:Type 2 diabetes mellitus with hemoglobin A1c goal of less than 8.0% ([facility]) Use as directed 2 times [...] hemoglobin A1c goal of less than 8.0% ([facility]) Use as directed 4 times [...] MORNING 90 Tablet 0 3 Active Nystatin 450247 UNIT/GM External Powder (Nystop)Indications:Tinea cruris Apply topically [...] hyperglycemia, with long-term current use of insulin ([facility]),HTN, goal below 140/90 TAKE ONE TABLET BY MOUTH EVERY MORNING 90 Tablet 3 4 Active Mounjaro 2.5 MG/0.5ML Subcutaneous Solution Pen-injector (Tirzepatide)Indications: Type 2 diabetes mellitus with hemoglobin A1c goal of less than 8.0% ([facility]),Type 2 diabetes mellitus with hyperglycemia, with long-term current use of insulin ([facility]) Inject 2.5 mg under the skin once a week. 2 mL 11 4 12/03/19 25 Active Insulin Glargine Solostar 100 UNIT/ML Subcutaneous Solution Pen-injector (Lantus SoloStar)Indications:Type 2 diabetes mellitus with hyperglycemia, with long-term current use of insulin (HCC) Inject 40 Units under the skin at [...] as of this encounter (statuses as of 12/24/2023) Active Problems Problem Noted Date Diagnosed Date [...] as of this encounter (statuses as of 12/24/2023) Resolved Problems Problem Noted Date Diagnosed Date [...] as of this encounter (statuses as of 12/24/2023) Immunizations Name Administration Dates Next Due COVID-19 mRNA, LNP-s, No Pre serve, 2-Dose Series (Pfizer) 06/07/2021,12/26/2020 H1N1 2009 Influenza, IM 09/01/2009 Hepatitis B, 20+ yrs 05/31/2014,12/10/2013,11/08 Pneumococcal Conjugate Vacci ne, 20-valent ([id number]) 03/07/2022 Pneumococcal Polysaccharide PPV23 (Pneumovax) 04/29/2008 Seasonal [...] oz pur e alcohol) comunion wine at [facility] PHQ-2 Answer Date Recorded PHQ Adult [...] 2:40 PM EDT [facility] [place] [address] [facility] [place], [place] [address] Jennifer Jimenez, [address] [place] [address] 04/02/2024 10:30 AM EDT Telemedicine [facility], [place] [address] [place] [address] Clotilde Alexander, [employer] [address] [place], [place] [id number] Health Maintenance Due Date Last Done Comments [...] filedocumented as of this encounter Care Teams Sap Administrator Relationship Specialty Start Date End Date Jennifer Jimenez DO [address] [place] [address] PCP - General Family Medicine 09/17/18 documented as of this encounter
--- OUTSIDE RECORDS SUMMARY | 2024-03-07 13:21 | External Medical Summary | Summary of Care ---
Author Name Unknown Organization [facility] Address [address] [place] [address] Phone [phone] Team Prov[address] Care Drive In Teller Name Role Phone Jnenifer Jimenez DO Primary Care Provider Reason for Visit * Reason Onset Date Comments eRx-Medication Refill Medication Question 12/08/2023 Encounter Details Date Type Department Care Team (Late st Contact Info) Description 12/07/2023 Refill Pharmacy, [facility] [address] [facility] [place] [address] Jennifer Jimenez DO [address] [facility] [place] [address] Type 2 diabetes mellitus with hyperglycemia, with long-term current use of insulin ([facility]) Allergies Active Allergy Reactions Criticality Noted Date Comments Doxycycline Hives 08/01/2012 Macrolides And Ketolides 07/15/2000 unknown Morphine And Related 06/11/2008 GI upset Penicillins 08/29/1999 1969 anaphylaxis documented as of this encounter (statuses as of 12/08/2023) Medications Medication Sig Dispensed Refills Start Date End Date Status Blood Glucose Monitoring Suppl (ONETOUCH ULTRA SYSTEM) w/Device KITIndications:Type 2 diabetes mellitus with hemoglobin A1c goal of less than 8.0% (HCC) Use as directed 4 times a day as needed for Hyperglycemia (high sugar). Use up to four times a day as directed 1 Kit 0 12/16/19 18 Active Additional Information Patient not taking.Reported on 12/04/2023 Blood Glucose Monitoring Suppl (ONETOUCH ULTRA 2) w/Device KITIndications:Type 2 diabetes mellitus with hemoglobin A1c goal of less than 8.0% ([facility]) Use twice daily 1 Kit 0 04/13/20 Active Additional Information Patient not taking.Reported on 12/04/2023 Insulin Pen Needle 32G X 8 MM MISCIndications:Type 2 diabetes mellitus with hemoglobin A1c goal of less than 8.0% ([facility]) Use as directed 2 times a day. To inject insulin. 200 Each 3 08/18/20 19 Active Melatonin 3 MG Oral Tablet Disintegrating Take 1 Tablet at bedtime by mouth. 30 Tablet 5 11/06/19 Active Lactobacillus Extra Strength Oral Capsule Take 1 Capsule daily by mouth. 30 Capsule 0 11/06/19 Active Acetaminophen ER 650 MG Oral Tablet Extended Release Take 1 Tablet by mouth every 8 hours as needed for Pain, Moderate. 30 Tablet 0 11/06/19 Active Clobetasol Propionate 0.05 % External Cream (Temovate)Indications:De rmatitis Apply 2 times a day topically to affected area. To affected area for up to two weeks. 60 g 1 11/06/19 Active metFORMIN HCl ER 500 MG Oral Tablet Extended Release 24 Hour (Glucophage XR) 1 daily with breakfast x 2 weeks then 2 daily with breakfast 60 Tablet 06/21/20 22 Active OneTouch Delica Lancets 33GIndications:Type 2 diabetes mellitus with hemoglobin A1c goal of less than 8.0% ([facility]) Use as directed 4 times per day 400 Each 10/18/19 23 Active Levothyroxine Sodium 175 MCG Oral Tablet (Levoxyl)Indications:Acq uired hypothyroidism TAKE ONE TABLET BY MOUTH EVERY MORNING AT LEAST 30 MINUTES PRIOR TO BREAKFAST OR OTHER MEDICATIONS 90 Tablet 12/25/19 23 Active Aspirin Low Dose 81 MG Oral Tablet Delayed Release (aspirin enteric coated)Indications:Cereb rovascular disease, arteriosclerotic, post-stroke TAKE TWO TABLETS BY MOUTH EVERY MORNING 180 Tablet 12/25/19 23 Active Famotidine 20 MG Oral Tablet (Pepcid)Indications:Maria Elena roesophageal reflux disease without esophagitis TAKE 1 TABLET BY MOUTH IN THE MORNING AND 1 TABLET BEFORE BEDTIME 60 Tablet 03/23/20 23 Active BD Pen Needle Mini U/F 31G X 5 MM (Insulin Pen Needle) Use 4 times daily with insulin injections 100 Each 04/24/20 23 Active FLUoxetine HCl 40 MG Oral Capsule (PROzac)Indications:Estrellita e eating disorder Take 1 Capsule by mouth in the morning. 30 Capsule 5 04/24/20 23 Active amLODIPine Besylate 10 MG Oral Tablet (Norvasc)Indications:HTN , goal below 140/90 TAKE ONE TABLET BY MOUTH EVERY MORNING 90 Tablet 1 06/20/20 23 Active Metoprolol Succinate ER 50 MG Oral Tablet Extended Release 24 Hour (toPROL XL)Indications:HTN, goal below 140/90 TAKE ONE TABLET BY MOUTH EVERY MORNING 90 Tablet 1 06/20/20 23 Active Rosuvastatin Calcium 20 MG Oral Tablet (Crestor)Indications:Pur e hypercholesterolemia TAKE ONE TABLET BY MOUTH EVERY MORNING 90 Tablet 0 10/08/20 23 Active Nystatin 706117 UNIT/GM External Powder (Nystop)Indications:Viki a cruris Apply topically to affected area 3 times a day. Apply to scrotum 60 g 2 10/30/19 24 Active Triamcinolone Acetonide 0.1 % External Cream (Aristocort) Apply topically to affected area 2 times a day. To affected area. vaseline after 453.6 g 5 10/30/19 24 Active Lisinopril 20 MG Oral Tablet (Prinivil)Indications:Ty pe 2 diabetes mellitus with hyperglycemia, with long-term current use of insulin ([facility]),HTN, goal below 140/90 TAKE ONE TABLET BY MOUTH EVERY MORNING 90 Tablet 3 11/07/19 24 Active Mounjaro 2.5 MG/0.5ML Subcutaneous Solution Pen-injector (Tirzepatide)Indications :Type 2 diabetes mellitus with hemoglobin A1c goal of less than 8.0% ([facility]),Type 2 diabetes mellitus with hyperglycemia, with long-term current use of insulin ([facility]) Inject 2.5 mg under the skin once a week. 2 mL 11 12/04/19 24 025 Active Insulin Glargine Solostar 100 UNIT/ML Subcutaneous Solution Pen-injector (Lantus SoloStar)Indications:Typ e 2 diabetes mellitus with hyperglycemia, with long-term current use of insulin ([facility]) Inject 40 Units under the skin at bedtime. TITRATING DOSE EVERY 2 WEEKS UNTIL BG LESS THAN 180 (Levemir not being made anymore) 45 mL 3 12/07/19 24 Active Insulin Glargine Solostar 100 UNIT/ML Subcutaneous Solution Pen-injector (Lantus SoloStar)Indications:Typ e 2 diabetes mellitus with hyperglycemia, with long-term current use of insulin (HCC) Inject 40 Units under the skin at bedtime. TITRATING DOSE EVERY 2 WEEKS UNTIL BG LESS THAN 180 (Levemir not being made anymore) 45 mL 3 11/07/19 24 024 Discontin ued(Refil l) documented as of this encounter (statuses as of 12/08/2023) Active Problems Problem Noted Date Diagnosed Date [...] as of this encounter (statuses as of 12/08/2023) Resolved Problems Problem Noted Date Diagnosed Date [...] as of this encounter (statuses as of 12/08/2023) Immunizations Name Administration Dates Next Due COVID-19 mRNA, LNP-s, No Pre serve, 2-Dose Series ([employer]) 06/07/2021,12/26/2020 H1N1 2009 Influenza, IM 09/01/2009 Hepatitis B, 20+ yrs 05/31/2014,12/10/2013,11/08 Influenza, Whole Virus 07/13/1999 Pneumococcal Conjugate Vacci ne, 20-valent ([id number]) 03/07/2022 Pneumococcal Polysaccharide PPV23 (Pneumovax) 04/29/2008 Seasonal [...] oz pur e alcohol) comunion wine at [facility] PHQ-2 Answer Date Recorded PHQ Adult [...] encounter Miscellaneous Notes * Telephone Encounter - Salazar Carreon acrobatic rigger - 12/08/2023 9:49 AM EST Pharmacy is calling because pt's prescription for RenewedInsulin Glargine was sent with unclear directions. Please clarify the directions for this medication and send a new prescription to [facility] Pharmacy asking for Maximum daily/cutoff amount. Thank you, Salazar Carreon Food Safety Technician I [facility] ([facility])(formerly Telepharmacy) 12/08/2023,9:49 AM * Telephone Encounter - Martinez Ogden [facility] - 12/07/2023 6:39 PM EST Signed Prescriptions: Disp Refills Insulin Glargine Solostar 100 UNIT/ML Subc*45 mL 3 Sig: Inject 40 Units under the skin at bedtime. TITRATING DOSE EVERY 2 WEEKS UNTIL BG LESS THAN 180 (Levemir not being made anymore)Authorizing Provider: JENNIFER JIMENEZ User: MARTINEZ OGDENRefused Prescriptions: Disp Refills Levemir FlexPen 100 UNIT/ML Subcutaneous S*15 mL 11 Sig: INJECT 40 UNITS UNDER THE SKIN BEFORE BEDTIME, TITRATING DOSE EVERY 2 WEEKS UNTIL BG LESS THAN 180Refused By: MARTINEZ OGDENReason for Refusal: Refill Not Approp riate documented in this encounter Plan of Treatment [...] (HCC) documented in this encounter Care Teams Drive In Teller Relationship Specialty Start Date End Date Jennifer Jimenez DO [address] [place] [address] PCP - General Family Medicine 09/17/18 documented as of this encounter
--- OUTSIDE RECORDS SUMMARY | 2024-03-07 13:21 | External Medical Summary | Summary of Care ---
Author Name Unknown Organization [facility] Address [address] [place] [address] Phone [phone] Care Team Providers Care Roofing Layer Name Role Phone Jennifer Jimenez DO Primary Care Provider Reason for Visit * Reason Onset Date Comments eRx-Medication Refill Medication Question 12/08/2023 Encounter Details Date Type Department Care Team (Late st Contact Info) Description 12/07/2023 Refill Pharmacy, [facility] [address] [facility] [place] [address] Jennifer Jimenez DO [address] [facility] [place] [address] Type 2 diabetes mellitus with hyperglycemia, with long-term current use of insulin ([facility]) Allergies Active Allergy Reactions Criticality Noted Date Comments Doxycycline Hives 08/01/2012 Macrolides And Ketolides 07/15/2000 unknown Morphine And Related 06/11/2008 GI upset Penicillins 08/29/1999 1969 anaphylaxis documented as of this encounter (statuses as of 12/11/2023) Medications Medication Sig Dispensed Refills Start Date [...] hemoglobin A1c goal of less than 8.0% ([facility]) Use twice daily 1 Kit 0 04/13/20 Active Additional Information Patient not taking.Reported on 12/04/2023 Insulin Pen Needle 32G X 8 MM MISCIndications:Type 2 diabetes mellitus with hemoglobin A1c goal of less than 8.0% ([facility]) Use as directed 2 [...] hemoglobin A1c goal of less than 8.0% ([facility]) Use as directed 4 [...] 90 Tablet 0 10/08/20 23 Active Nystatin 225451 UNIT/GM External Powder (Nystop)Indications:Viki a cruris Apply [...] hyperglycemia, with long-term current use of insulin ([facility]),HTN, goal below 140/90 TAKE ONE TABLET BY MOUTH EVERY MORNING 90 Tablet 3 11/07/19 24 Active Mounjaro 2.5 MG/0.5ML Subcutaneous Solution Pen-injector (Tirzepatide)Indications :Type 2 diabetes mellitus with hemoglobin A1c goal of less than 8.0% ([facility]),Type 2 diabetes mellitus with hyperglycemia, with long-term current use of insulin ([facility]) Inject 2.5 mg under the skin once a week. 2 mL 11 12/04/19 24 025 Active Insulin Glargine Solostar 100 UNIT/ML Subcutaneous Solution Pen-injector (Lantus SoloStar)Indications:Typ e 2 diabetes mellitus with hyperglycemia, with long-term current use of insulin ([facility]) Inject 40 Units under [...] as of this encounter (statuses as of 12/11/2023) Active Problems Problem Noted Date Diagnosed Date [...] as of this encounter (statuses as of 12/11/2023) Resolved Problems Problem Noted Date Diagnosed Date [...] as of this encounter (statuses as of 12/11/2023) Immunizations Name Administration Dates Next Due COVID-19 mRNA, LNP-s, No Pre serve, 2-Dose Series ([employer]) 06/07/2021,12/26/2020 H1N1 2009 Influenza, IM 09/01/2009 Hepatitis B, 20+ yrs 05/31/2014,12/10/2013,11/08 Influenza, Whole Virus 07/13/1999 Pneumococcal Conjugate Vacci ne, 20-valent ([id number]) 03/07/2022 Pneumococcal Polysaccharide PPV23 (Pneumovax) 04/29/2008 Seasonal [...] oz pur e alcohol) comunion wine at [facility] PHQ-2 Answer Date Recorded PHQ [...] Notes * Telephone Encounter - Salazar Carreon venue manager - 12/08/2023 9:49 AM EST Pharmacy is calling because pt's prescription for RenewedInsulin Glargine was sent with unclear directions. Please clarify the directions for this medication and send a new prescription to [facility] Pharmacy asking for Maximum daily/cutoff amount. Thank you, Salazar Carreon Stave Inspector I [facility] ([facility])(formerly Telepharmacy) 12/08/2023,9:49 AM * Telephone Encounter - Martinez Ogden [facility] - 12/07/2023 6:39 PM EST Signed Prescriptions: [...] By: MARTINEZ OGDENReason for Refusal: Refill Not Appro priate documented in this encounter Plan of Treatment [...] (HCC) documented in this encounter Care Teams Roofing Layer Relationship Specialty Start Date End Date Jennifer Jimenez DO [address] [place] [address] PCP - General Family Medicine 09/17/18 documented as of this encounter
--- OUTSIDE RECORDS SUMMARY | 2024-03-07 13:21 | External Medical Summary | Summary of Care ---
Author Name Unknown Organization [facility] Address [address] [place] [address] Phone [phone] Care Team Providers Care Entry Analyst Name Role Phone Jennifer Jimenez DO Primary Care Provider Reason for Visit * Reason Onset Date Comments eRx-Medication Refill Medication Question 12/08/2023 Encounter Details Date Type Department Care Team (Late st Contact Info) Description 12/07/2023 Refill Pharmacy, [facility] [address] [facility] [place] [address] Jennifer Jimenez DO [address] [facility] [place] [address] Type 2 diabetes mellitus with hyperglycemia, with long-term current use of insulin ([facility]) Allergies Active Allergy Reactions Criticality [...] goal of less than 8.0% ([facility]) Use twice daily 1 Kit 0 04/13/20 Active Additional Information Patient not taking.Reported on 12/04/2023 Insulin Pen Needle 32G X 8 MM MISCIndications:Type 2 diabetes mellitus with hemoglobin A1c goal of less than 8.0% ([facility]) Use as directed 2 times [...] goal of less than 8.0% ([facility]) Use as directed 4 times [...] 90 Tablet 0 10/08/20 23 Active Nystatin 055000 UNIT/GM External Powder (Nystop)Indications:Viki a cruris Apply [...] long-term current use of insulin ([facility]),HTN, goal below 140/90 TAKE ONE TABLET BY MOUTH EVERY MORNING 90 Tablet 3 11/07/19 24 Active Mounjaro 2.5 MG/0.5ML Subcutaneous Solution Pen-injector (Tirzepatide)Indications :Type 2 diabetes mellitus with hemoglobin A1c goal of less than 8.0% ([facility]),Type 2 diabetes mellitus with hyperglycemia, with long-term current use of insulin ([facility]) Inject 2.5 mg under the skin once a week. 2 mL 11 12/04/19 24 025 Active Insulin Glargine Solostar 100 UNIT/ML Subcutaneous Solution Pen-injector (Lantus SoloStar)Indications:Typ e 2 diabetes mellitus with hyperglycemia, with long-term current use of insulin ([facility]) Inject 40 Units under the skin at bedtime. TITRATING DOSE EVERY 2 WEEKS UNTIL BG LESS THAN 180 (Levemir not being made anymore) (up until max dose of 50 units) 45 mL 3 12/11/19 24 Active Insulin Glargine Solostar 100 UNIT/ML Subcutaneous Solution Pen-injector (Lantus SoloStar)Indications:Typ e 2 diabetes mellitus with hyperglycemia, with long-term current use of insulin (HCC) Inject 40 Units under the skin at bedtime. TITRATING DOSE EVERY 2 WEEKS UNTIL BG LESS THAN 180 (Levemir not being made anymore) 45 mL 3 11/07/19 24 024 Discontin ued(Refil l) Insulin Glargine Solostar 100 UNIT/ML Subcutaneous Solution Pen-injector (Lantus SoloStar)Indications:Typ e 2 diabetes mellitus with hyperglycemia, with long-term current use of insulin (HCC) Inject 40 Units under the skin at bedtime. TITRATING DOSE EVERY 2 WEEKS UNTIL BG LESS THAN 180 (Levemir not being made anymore) 45 mL 3 12/07/19 24 024 Discontin ued(Refil l) documented as [...] mRNA, LNP-s, No Pre serve, 2-Dose Series ([employer]) 06/07/2021,12/26/2020 H1N1 2009 Influenza, IM 09/01/2009 Hepatitis B, 20+ yrs 05/31/2014,12/10/2013,11/08 Influenza, Whole Virus 07/13/1999 Pneumococcal Conjugate Vacci ne, 20-valent ([id number]) 03/07/2022 Pneumococcal Polysaccharide PPV23 (Pneumovax) 04/29/2008 Seasonal [...] alcohol) [facility] wine at [facility] PHQ-2 Answer Date Recorded PHQ Adult Total [...] as of this encounter Miscellaneous Notes * Addendum Note - Jennifer Jimenez DO - 12/11/2023 4:05 PM ESTAddended by: JENNIFER JIMENEZ on: 12/11/2023 04:05 PM Modules accepted: Orders * Telephone Encounter - Salazar Carreon, test borer - 12/08/2023 9:49 AM EST Pharmacy is calling because pt's prescription for RenewedInsulin Glargine was sent with unclear directions. Please clarify the directions for this medication and send a new prescription to [facility] Pharmacy asking for Maximum daily/cutoff amount. Thank you, Salazar Carreon Contact Lens Cutter I [facility] ([facility])(formerly Telepharmacy) 12/08/2023,9:49 AM * Telephone Encounter - Martinez Ogden [facility] - 12/07/2023 6:39 PM EST Signed [...] (HCC) documented in this encounter Care Teams Entry Analyst Relationship Specialty Start Date End Date Jennifer Jimenez DO [address] [place] [address] PCP - General Family Medicine 09/17/18 documented as of this encounter
--- OUTSIDE RECORDS SUMMARY | 2024-03-07 13:21 | External Medical Summary | Summary of Care ---
Author Name Unknown Organization [facility] Address [address] [place] [address] Phone [phone] Care Team Providers Care Memorial Designer Name Role Phone Barbara Rodriguez Miryam Primary Care Provider Reason for Visit * Reason Comments Re-Check Pt is here for a 1m return. Pt reports he has been feeling depressed. He states that his during this time of the year in 2019 and this makes it a very hard time for him. Encounter Details Date Type Department Care Team (Late st Contact Info) Description 12/04/2023 1:00 PM EST Office Visit Family Practice [facility] [place] [address] [place] [address] Natalie Collazo MD [address] [facility] [place] [address] Type 2 diabetes mellitus with hyperglycemia, with long-term current use of insulin (HCC)*; Type 2 diabetes mellitus with hemoglobin A1c goal of less than 8.0% (HCC); Acquired hypothyroidism; HTN, goal below 140/90; Major depressive disorder, recurrent episode, moderate (HCC); Need for prophylactic vaccination and inoculation against influenza Allergies Active Allergy Reactions Criticality Noted Date Comments Doxycycline Hives 08/01/2012 Macrolides And Ketolides 07/15/2000 unknown Morphine And Related 06/11/2008 GI upset Penicillins 08/29/1999 1969 anaphylaxis documented as of this encounter (statuses as of 12/04/2023) Medications Medication Sig Dispensed Refills Start Date End Date Status Blood Glucose Monitoring Suppl (Trust Digital ULTRA SYSTEM) w/Device KITIndications:Type 2 diabetes mellitus with hemoglobin A1c goal of less than 8.0% (HCC) Use as directed 4 times a day as needed for Hyperglycemia (high sugar). Use up to four times a day as directed 1 Kit 0 018 Active Additional Information Patient not taking.Reported on 12/04/2023 Blood Glucose Monitoring Suppl (Trust Digital ULTRA 2) w/Device KITIndications:Type 2 diabetes mellitus with hemoglobin A1c goal of less than 8.0% (HCC) Use twice daily 1 Kit 0 019 Active Additional Information Patient not taking.Reported on 12/04/2023 Insulin Pen Needle 32G X 8 MM MISCIndications:Type 2 diabetes mellitus with hemoglobin A1c goal of less than 8.0% (HCC) Use as directed 2 times a day. To inject insulin. 200 Each 3 019 Active Melatonin 3 MG Oral Tablet Disintegrating Take 1 Tablet at bedtime by mouth. 30 Tablet 5 022 Active Lactobacillus Extra Strength Oral Capsule Take 1 Capsule daily by mouth. 30 Capsule 0 022 Active Acetaminophen ER 650 MG Oral Tablet Extended Release Take 1 Tablet by mouth every 8 hours as needed for Pain, Moderate. 30 Tablet 0 022 Active Clobetasol Propionate 0.05 % External Cream (Temovate)Indications:D ermatitis Apply 2 times a day topically to affected area. To affected area for up to two weeks. 60 g 1 022 Active metFORMIN HCl ER 500 MG Oral Tablet Extended Release 24 Hour (Glucophage XR) 1 daily with breakfast x 2 weeks then 2 daily with breakfast 60 Tablet 022 Active Anna Conteh Lancets 33GIndications:Type 2 diabetes mellitus with hemoglobin A1c goal of less than 8.0% (HCC) Use as directed 4 times per day 400 Each 3 023 Active Levothyroxine Sodium 175 MCG Oral Tablet (Levoxyl)Indications:Ac quired hypothyroidism TAKE ONE TABLET BY MOUTH EVERY MORNING AT LEAST 30 MINUTES PRIOR TO BREAKFAST OR OTHER MEDICATIONS 90 Tablet 3 023 Active Aspirin Low Dose 81 MG Oral Tablet Delayed Release (aspirin enteric coated)Indications:Cere brovascular disease, arteriosclerotic, post-stroke TAKE TWO TABLETS BY MOUTH EVERY MORNING 180 Tablet 3 023 Active Famotidine 20 MG Oral Tablet (Pepcid)Indications:Gas troesophageal reflux disease without esophagitis TAKE 1 TABLET BY MOUTH IN THE MORNING AND 1 TABLET BEFORE BEDTIME 60 Tablet 023 Active BD Pen Needle Mini U/F 31G X 5 MM (Insulin Pen Needle) Use 4 times daily with insulin injections 100 Each 023 Active FLUoxetine HCl 40 MG Oral Capsule (PROzac)Indications:Bin ge eating disorder Take 1 Capsule by mouth in the morning. 30 Capsule 023 Active amLODIPine Besylate 10 MG Oral Tablet (Norvasc)Indications:HT N, goal below 140/90 TAKE ONE TABLET BY MOUTH EVERY MORNING 90 Tablet 1 023 Active Metoprolol Succinate ER 50 MG Oral Tablet Extended Release 24 Hour (toPROL XL)Indications:HTN, goal below 140/90 TAKE ONE TABLET BY MOUTH EVERY MORNING 90 Tablet 1 023 Active Rosuvastatin Calcium 20 MG Oral Tablet (Crestor)Indications:Pu re hypercholesterolemia TAKE ONE TABLET BY MOUTH EVERY MORNING 90 Tablet 0 023 Active Nystatin 997980 UNIT/GM External Powder (Nystop)Indications:Tin ea cruris Apply [...] with long-term current use of insulin ([facility]),HTN, goal below 140/90 TAKE ONE TABLET BY MOUTH EVERY MORNING 90 Tablet 024 Active Insulin Glargine Solostar 100 UNIT/ML Subcutaneous Solution Pen-injector (Lantus SoloStar)Indications:Ty pe 2 diabetes mellitus with hyperglycemia, with long-term current use of insulin ([facility]) Inject 40 Units under the skin at bedtime. TITRATING DOSE EVERY 2 WEEKS UNTIL BG LESS THAN 180 (Levemir not being made anymore) 45 mL 024 Active Mounjaro 2.5 MG/0.5ML Subcutaneous Solution Pen-injector (Tirzepatide)Indication s:Type 2 diabetes mellitus with hemoglobin A1c goal of less than 8.0% ([facility]),Type 2 diabetes mellitus with hyperglycemia, with long-term current use of insulin ([facility]) Inject 2.5 mg under the skin once a week. 2 mL 11 024 2024 Active Clotrimazole 1 % External Cream (Lotrimin)Indications:J ock itch Apply topically to affected area 2 times a day for 14 days. 30 g 1 023 2023 Discontinued Indomethacin 50 MG Oral Capsule Take 1 Capsule by mouth 3 times a day as needed for Pain. with food. Decrease frequency after 48 hours. 40 Capsule 0 024 2023 Discontinued(P atient preference/dis continuation) documented as of this encounter (statuses as of 12/04/2023) Active Problems Problem Noted Date Diagnosed Date [...] as of this encounter (statuses as of 12/04/2023) Resolved Problems Problem Noted Date Diagnosed Date [...] as of this encounter (statuses as of 12/04/2023) Immunizations Name Administration Dates Next Due COVID-19 mRNA, LNP-s, No Pre serve, 2-Dose Series ([employer]) 06/07/2021,12/26/2020 H1N1 2009 Influenza, IM 09/01/2009 Hepatitis B, 20+ yrs 05/31/2014,12/10/2013,11/08 Pneumococcal Conjugate Vacci ne, 20-valent ([id number]) 03/07/2022 Pneumococcal Polysaccharide PPV23 (Pneumovax) 04/29/2008 Seasonal [...] oz pur e alcohol) comunion wine at [facility] PHQ-2 Answer Date Recorded PHQ Adult Total [...] Sign Reading Time Taken Comments Blood Pressure 138/88 12/04/2023 1:15 PM EST Pulse 78 12/04/2023 1:15 PM EST Temperature 35.9 C (96.7 F) 12/04/2023 1:15 PM ES T Respiratory Rate - - Oxygen Saturation 99% 12/04/2023 1:15 PM EST Inhaled Oxygen Concentration - - Weight 117.1 kg (258 lb 1.3 oz) 12/04/2023 1:15 PM EST Height - - Body Mass Index 42.95 10/30/2023 6:22 PM EST documented in this encounter Progress Notes * Natalie Collazo MD - 12/04/2023 1:23 PM EST Subjective Chief Complaint Patient presents with Re-Check Pt is here for a 1m return. Pt reports he has been feeling depressed. He states that his during this time of the year in 2019 and this makes it a very hard time for him. HPI: Ten Corbin is a 58 year old male. The following issues were addressed today: Patient presents today for follow-up. We reviewed recent labs. Hgb A1c elevated at 12.5, TSH elevated at 32.10 and T4 is 0.5. He is prescribed Metformin and insulin for his diabetes. States he often forgets his pills. Not sure what kind of insulin he takes but thinks it is short-acting and is taking it three times a day. Hedoes not take glargine. There is no other insulin on his medication list. Was on Ozempic in the past but states he stopped it because he heard "horror stories" about side effects. He tolerated it well while he was on it. He states he knows his diabetes is very poorly controlled and understands the potential outcomes of this. He states he overeats and is not motivated to make changes. His used to do all of the cooking but she in 2022. He states this is a difficult time of year for him because it is around the anniversary of her . Feels lonely. Has family nearby but does no t want to bother them. He has had thoughts he would be better off in the past but states he isalways able to "talk himself out of this" and would never do anything to hurt himself. He has neverattempted suicide and does not have a plan. He is prescribed Prozac but does not take it. Not taking thyroid medication or blood pressure medication. We discussed referral to [facility] pharmacy and he is not interested. Review of Systems: See HPI Objective BP 138/88 | Pulse 78 | Temp 35.9 C (96.7 F) (Tympanic) | Wt 117.1 kg (258 lb 1.3 oz) | SpO2 99%| BMI 42.95 kg/m | BSA 2.32 m Wt Readings from Last 3 Encounters: 12/04/23 117.1 kg (258 lb 1.3 oz) 11/29/23 116.3 kg (256 lb 6.4 oz) 10/30/23 115.2 kg (254 lb) BP Readings from Last 3 Encounters: 12/04/23 138/88 11/29/23 138/94 10/30/23 136/86 General: Well-appearing, no acute distress Neurological: Alert and oriented Psychiatric: Appropriate mood and affect Assessment & Plan 1. Type 2 diabetes mellitus with hyperglycemia, with long-term current use of insulin (HCC) 2. Type 2 diabetes mellitus with hemoglobin A1c goal of less than 8.0% ([facility]) Diabetes is poorly controlled. He is aware of risks of this, including but not limited to kidney disease, heart disease, vision problems/loss, and . He states he is poorly motivated to change his lifestyle and remember to take his medications. He declines [facility] pharmacy referral. He is willing to try GLP-1 RA again since it is only once weekly and he may have less trouble remembering to take it. Will try Mounjaro. No contraindications. He is aware of potential side effects. Encouraged to follow-up to clarify insulin regimen. - Mounjaro 2.5 MG/0.5ML Subcutaneous Solution Pen-injector (Tirzepatide); Inject 2.5 mg under the skin once a week. Dispense: 2 mL; Refill: 11 3. Acquired hypothyroidism TSH significantly elevated. He is not taking his levothyroxine. Understands risks of non-adherence to medication. 4. HTN, goal below 140/90 Stable. Not taking antihypertensives. 5. Major depressive disorder, recurrent episode, moderate (HCC) Prescribed Prozac but he is not taking. He declines a referral for psychology. He denies current suicidal ideation. 6. Need for prophylactic vaccination and inoculation against influenza Follow Up: Return for follow-up with PCP Dr. Jimenez in 3 months or next available This note was electronically signed by Natalie Collazo MD documented in this encounter Plan of Treatment Health Maintenance Due Date Last Done Comments Hepatitis C Screening 1985 Cologuard 2012 Fecal Occult Blood Test 2012 Sigmoidoscopy 2012 Albumin/Creatinine Ratio 06/02/2021 020, 06/19/2018, 07/11/2017, Additional history exists COVID-19 Vaccine ( season) 2023 06/07/2021, 12/26/2020 Influenza Vaccine (FLU shot) (#1) 2023 06/21/2022, 06/29/2021, 07/24/2020, Additional history exists *NEPHROLOGY REFERRAL DUE TO RESISTANT HTN 12/01/2023 Depression, Most Recent Score >= 10 (will [...] hyperglycemia, with long-term current use of insulin (HCC)- Primary Type 2 diabetes mellitus with hemoglobin A1c goal of less than 8.0% (HCC) Acquired hypothyroidism Unspecified hypothyroidism HTN, goal below 140/90 Unspecified essential hypertension Major depressive disorder, recurrent episode, moderate (HCC) Major depressive disorder, recurrent episode, moderate Need for prophylactic vaccination and inoculation against influenza documented in this encounter Care Teams Memorial Designer Relationship Specialty Start Date End Date Jennifer Jimenez DO [address] [place] [address] PCP - General Family Medicine 09/17/18 documented as of this encounter
--- OUTSIDE RECORDS SUMMARY | 2024-03-07 13:21 | External Medical Summary | Summary of Care ---
Author Name Unknown Organization [facility] Address [address] [place] [address] Phone [phone] Care Team Providers Care Varitype Operator Name Role Phone Jennifer Jimenez DO Primary Care Provider Reason for Visit * Reason Onset Date Comments Test Results Imaging Study 11/29/2023 Encounter Details Date Type Department Care Team ([facility] st Contact Info) Description 11/29/2023 Telephone [facility] [address] [place] [address] Vero Clemons PA-C [address] [place] [address] Test Results Imaging Study Allergies Active Allergy Reactions Criticality Noted Date Comments Doxycycline Hives 08/01/2012 Macrolides And Ketolides 07/15/2000 unknown Morphine And Related 06/11/2008 GI upset Penicillins 08/29/1999 1969 anaphylaxis documented as of this encounter (statuses as of 11/29/2023) Medications Medication Sig Dispensed Refills Start Date [...] Active Additional Information Patient not taking.Reported on 11/29/2023 Blood Glucose Monitoring Suppl (ONETOUCH ULTRA 2) w/Device KITIndications:Type 2 diabetes mellitus with hemoglobin A1c goal of less than 8.0% (HCC) Use twice daily 1 Kit 0 9 Active Additional Information Patient not taking.Reported on 11/29/2023 Insulin Pen Needle 32G X 8 MM MISCIndications:Type 2 diabetes mellitus with hemoglobin A1c goal of less than 8.0% ([facility]) Use as directed 2 times [...] hemoglobin A1c goal of less than 8.0% ([facility]) Use as directed 4 times [...] BEFORE BEDTIME 60 Tablet 11 3 Active Additional Information Patient not taking.Reported on 11/29/2023 BD Pen Needle Mini U/F 31G X 5 MM (Insulin Pen Needle) Use 4 times daily with insulin injections 100 Each 5 3 Active Additional Information Patient not taking.Reported on 11/29/2023 FLUoxetine HCl 40 MG Oral Capsule (PROzac)Indications:Estrellita [...] MORNING 90 Tablet 0 3 Active Nystatin 868535 UNIT/GM External Powder (Nystop)Indications:Viki a cruris Apply [...] hyperglycemia, with long-term current use of insulin ([facility]),HTN, goal below 140/90 TAKE ONE TABLET BY MOUTH EVERY MORNING 90 Tablet 3 4 Active Insulin Glargine Solostar 100 UNIT/ML Subcutaneous Solution Pen-injector (Lantus SoloStar)Indications:Typ e 2 diabetes mellitus with hyperglycemia, with long-term current use of insulin ([facility]) Inject 40 Units under the skin at bedtime. TITRATING DOSE EVERY 2 WEEKS UNTIL BG LESS THAN 180 (Levemir not being made anymore) 45 mL 3 4 Active Indomethacin 50 MG Oral Capsule Take 1 Capsule by mouth 3 times a day as needed for Pain. with food. Decrease frequency after 48 hours. 40 Capsule 0 4 Active documented as of this encounter (statuses as of 11/29/2023) Active Problems Problem Noted Date Diagnosed Date [...] as of this encounter (statuses as of 11/29/2023) Resolved Problems Problem Noted Date Diagnosed Date [...] as of this encounter (statuses as of 11/29/2023) Immunizations Name Administration Dates Next Due COVID-19 mRNA, LNP-s, No Pre serve, 2-Dose Series (Pfizer) 06/07/2021,12/26/2020 H1N1 2009 Influenza, IM 09/01/2009 Hepatitis B, 20+ yrs 05/31/2014,12/10/2013,11/08 Pneumococcal Conjugate Vacci ne, 20-valent ([id number]) 03/07/2022 Pneumococcal Polysaccharide PPV23 (Pneumovax) 04/29/2008 Seasonal [...] oz pur e alcohol) [facility] PHQ-2 Answer Date Recorded PHQ-2 Score -1 08/25/2020 Hunger Vital Sign Answer Date Recorded Worried About Running Out of Food in the Last Ye ar Never true 12/16/2019 Ran Out of Food in the Last Year Never true 12/16/2019 Sex and Gender Information Value Date Recorded Sex Assigned at Not on file Gender Identity Not on file Sexual Orientation Not on file Job Start Date Occupation Industry Not on file Not on file Not on file documented as of this encounter Miscellaneous Notes * Telephone Encounter - Vero Clemons PA-C - 11/29/2023 4:59 PM EST No fracture on imaging. Will send in indomethacin to start. Confirmed patient Spoke with patient about risk of VIOLETA. How to support kidneys while taking this medication, how to taper down. To return if no better after 4 days. Etc. We are trying to avoid prednisone due to poor glucose control. Patient expressed understanding. All questions answered. Agrees with Plan. * Telephone Encounter - Vero Clemons PA-C - 11/29/2023 3:23 PM EST Confirmed patient Results relayed as below. Labs do not support acute infection. Due to normal kidney function, couldconsider indomethacin for gout. To wait for imaging results to confirm no fracture and then treat for likely gout/pseudogout Patient expressed understanding. All questions answered. Agrees with Plan. Results for orders placed or performed in visit on 11/29/23 BASIC METABOLIC PANEL Result Value Ref Range BUN 12 6 - 20 mg/dL Creatinine 1.0 0.6 - 1.2 mg/dL Estimated Glomerular Filtration Rate 86 >=60 mL/min Sodium 135 135 - 146 mmol/L Potassium 4.8 3.5 - 5.1 mmol/L Chloride 96 (L) 98 - 107 mmol/L CO2 26 22 - 32 mmol/L Anion Gap 13 7 - 15 mmol/L Glucose 248 (H) 70 - 120 mg/dL Calcium 9.8 8.4 - 10.2 mg/dL CBC Result Value Ref Range WBC 8.26 4.00 - 10.80 K/uL RBC 5.76 4.50 - 5.25 M/uL HGB 16.1 14.0 - 16.8 g/dL HCT 45.8 40.0 - 48.4 % MCV 79.5 82.0 - 99.5 fL MCH 28.0 27.0 - 34.0 pg MCHC 35.2 32.0 - 36.0 g/dL RDW 14.2 11.5 - 15.5 % PLT 240 140 - 400 K/uL MPV 9.6 6.6 - 11.1 fL DIFFERENTIAL, AUTOMATED Result Value Ref Range WBC 8.26 4.00 - 10.80 K/uL Neutrophils % 75.4 (H) 40.0 - 75.0 % Lymphocytes % 14.0 (L) 18.0 - 42.0 % Monocytes % 6.1 1.0 - 11.0 % Eosinophils % 3.9 0.0 - 6.0 % Basophils % 0.6 0.0 - 2.0 % Absolute Neutrophils 6.23 1.80 - 7.70 K/uL Absolute Lymphocytes 1.16 1.00 - 4.80 K/ul Absolute Monocytes 0.50 0.00 - 1.10 K/uL Absolute Eosinophils 0.32 0.00 - 0.70 K/uL Absolute Basophils 0.05 0.00 - 0.20 K/uL *Note: Due to a large number of results and/or encounters for the requested time period, some results have not been displayed. A complete set of results can be found in Results Review. documented in this encounter Plan of Treatment Upcoming Encounters Date Type Department Care Team (Late st Contact Info) Description 12/04/2023 1:00 PM EST Office Visit Family Practice [facility] [address] [facility] [place] [address] Natalie Collazo MD [address] [facility] [address] Health Maintenance Due Date Last Done Comments Hepatitis C Screening 1985 Cologuard 2012 Fecal Occult Blood Test 2012 Sigmoidoscopy 2012 Albumin/Creatinine Ratio 06/02/2021 020, 06/19/2018, 07/11/2017, Additional history exists Depression Screening 08/25/2021 08/25/2020 COVID-19 Vaccine ( season) 2023 06/07/2021, 12/26/2020 Influenza Vaccine (FLU shot) (#1) 2023 06/21/2022, 06/29/2021, 07/24/2020, Additional history exists Diabetic Eye Exam 04/24/2024 04/24/2023, , 02/11/2018, [...] filedocumented as of this encounter Care Teams Varitype Operator Relationship Specialty Start Date End Date Jennifer Jimenez DO [facility] [place] [address] PCP - General Family Medicine 09/17/18 documented as of this encounter
--- OUTSIDE RECORDS SUMMARY | 2024-03-07 13:21 | External Medical Summary | Summary of Care ---
Author Name Unknown Organization [facility] Address [address] [place] [address] Phone [phone] Care Team Providers Care Rush Seater Name Role Phone Jennifer Jimenez DO Primary Care Provider Reason for Visit * Reason Comments eRx-Medication Refill Encounter Details Date Type Department Care Team (Late st Contact Info) Description 12/07/2023 Refill Pharmacy, [facility] [address] [facility] [place] [address] Jennifer Jimenez DO [address] [facility] [place] [address] Type 2 diabetes mellitus with hyperglycemia, with long-term current use of insulin (HCC) Allergies Active Allergy Reactions Criticality Noted Date Comments Doxycycline Hives 08/01/2012 Macrolides And Ketolides 07/15/2000 unknown Morphine And Related 06/11/2008 GI upset Penicillins 08/29/1999 1969 anaphylaxis documented as of this encounter (statuses as of 12/07/2023) Medications Medication Sig Dispensed Refills Start Date [...] (HCC) Use twice daily 1 Kit 0 04/13/20 19 Active Additional Information Patient not taking.Reported on 12/04/2023 Insulin Pen Needle 32G X 8 MM MISCIndications:Type 2 diabetes mellitus with hemoglobin A1c goal of less than 8.0% ([facility]) Use as directed 2 times a [...] hemoglobin A1c goal of less than 8.0% ([facility]) Use as directed 4 times per day 400 Each 3 10/18/19 23 Active Levothyroxine Sodium 175 MCG [...] daily with insulin injections 100 Each 5 04/24/20 23 Active FLUoxetine HCl 40 MG [...] 90 Tablet 0 10/08/20 23 Active Nystatin 244853 UNIT/GM External Powder (Nystop)Indications:Viki a cruris Apply [...] hyperglycemia, with long-term current use of insulin ([facility]),HTN, goal below 140/90 TAKE ONE TABLET BY MOUTH EVERY MORNING 90 Tablet 3 11/07/19 24 Active Mounjaro 2.5 MG/0.5ML Subcutaneous Solution Pen-injector (Tirzepatide)Indications :Type 2 diabetes mellitus with hemoglobin A1c goal of less than 8.0% ([facility]),Type 2 diabetes mellitus with hyperglycemia, with long-term current use of insulin ([facility]) Inject 2.5 mg under the skin once a week. 2 mL 11 12/04/19 24 025 Active Insulin Glargine Solostar 100 UNIT/ML Subcutaneous Solution Pen-injector (Lantus SoloStar)Indications:Typ e 2 diabetes mellitus with hyperglycemia, with long-term current use of insulin ([facility]) Inject 40 Units under the skin [...] as of this encounter (statuses as of 12/07/2023) Active Problems Problem Noted Date Diagnosed Date [...] as of this encounter (statuses as of 12/07/2023) Resolved Problems Problem Noted Date Diagnosed Date [...] as of this encounter (statuses as of 12/07/2023) Immunizations Name Administration Dates Next Due COVID-19 mRNA, LNP-s, No Pre serve, 2-Dose Series ([employer]) 06/07/2021,12/26/2020 H1N1 2009 Influenza, IM 09/01/2009 Hepatitis B, 20+ yrs 05/31/2014,12/10/2013,11/08 Pneumococcal Conjugate Vacci ne, 20-valent ([id number]) 03/07/2022 Pneumococcal Polysaccharide PPV23 (Pneumovax) 04/29/2008 Seasonal [...] oz pur e alcohol) comunion wine at [facility] PHQ-2 Answer Date Recorded PHQ Adult Total [...] encounter Miscellaneous Notes * Telephone Encounter - Martinez Ogden RPh - 12/07/2023 6:39 PM EST Signed Prescriptions: [...] UNTIL BG LESS THAN 180Refused By: MARTINEZ OGDEN for Refusal: Refill Not Approp riate documented [...] (HCC) documented in this encounter Care Teams Rush Seater Relationship Specialty Start Date End Date Jennifer Jimenez DO [address] [place] [address] PCP - General Family Medicine 09/17/18 documented as of this encounter
--- OUTSIDE RECORDS SUMMARY | 2024-03-07 13:22 | External Medical Summary ---
Author Name Unknown Address Unknown Organization [facility] [address] [place] [address] Laboratory Report Ordering Provider Test Date Status 11/06/2023 11:16:17 Final Observation Date Value Abnormality Reference (Units ) Status BUN 11/06/2023 11:16:17 15 6-20 (mg/dL) Final Creatinine 11/06/2023 11:16:17 1.1 0.6-1.2 (mg/dL) Final Glomerular filtration rate/1.73 sq M.predicted [Volume Rate/Area] in Serum, Plasma or Blood by Creatinine-based formula (CKD-EPI) 11/06/2023 11:16:17 81 >=60 (mL/min) Final eGFR is calculated based on the CKD-EPI 2020 equation SODIUM 11/06/2023 11:16:17 132 Below low normal 135 -146 (mmol/L) Final Potassium 11/06/2023 11:16:17 4.4 3.5-5.1 (m mol/L) Final Cl 11/06/2023 11:16:17 95 Below low normal 98- 107 (mmol/L) Final CO2 11/06/2023 11:16:17 23 22-32 (mmo l/L) Final Anion gap 11/06/2023 11:16:17 14 7-15 (mmol /L) Final Glucose 11/06/2023 11:16:17 422 Above high normal 70 -120 (mg/dL) Final Albumin 11/06/2023 11:16:17 4.4 3.8-5.0 (g /dL) Final AST (Aspartate aminotransferase) 11/06/2023 11:16:17 15 10-50 (U/L) Fin al Alk Phos 11/06/2023 11:16:17 125 35-130 (U/ L) Final Bilirubin, Total 11/06/2023 11:16:17 0.5 <=1 .2 (mg/dL) Final Calcium 11/06/2023 11:16:17 9.6 8.4-10.2 ( mg/dL) Final Protein 11/06/2023 11:16:17 7.2 6.0-8.3 (g /dL) Final ALT (Alanine aminotransferase) 11/06/2023 11:16:17 14 10-50 (U/L) Madhu yang Performing Location [facility] [address] [place] [address]
--- OUTSIDE RECORDS SUMMARY | 2024-03-07 13:22 | External Medical Summary | Summary of Care ---
Author Name Unknown Organization [facility] Address [address] [place] [address] Phone [phone] Care Team Providers Care Band Shover Name Role Phone Jennifer Jimenez DO Primary Care Provider Reason for Visit * Reason Onset Date Comments Abnormal Test Results 11/12/2023 Encounter Details Date Type Department Care Team (Late st Contact Info) Description 11/12/2023 Telephone Family Practice [facility] [address] [facility] [place] [address] Jennifer Jimenez DO [address] [facility] [place] [address] Abnormal Test Results Allergies Active Allergy Reactions Criticality Noted Date Comments Doxycycline Hives 08/01/2012 Macrolides And Ketolides 07/15/2000 unknown Morphine And Related 06/11/2008 GI upset Penicillins 08/29/1999 1969 anaphylaxis documented as of this encounter (statuses as of 11/12/2023) Medications Medication Sig Dispensed Refills Start Date End Date Status Blood Glucose Monitoring Suppl (ONETOUCH ULTRA SYSTEM) w/Device KITIndications:Type 2 diabetes mellitus with hemoglobin A1c goal of less than 8.0% (HCC) Use as directed 4 times a day as needed for Hyperglycemia (high sugar). Use up to four times a day as directed 1 Kit 0 8 Active Blood Glucose Monitoring Suppl (ONETOUCH ULTRA 2) w/Device KITIndications:Type 2 diabetes mellitus with hemoglobin A1c goal of less than 8.0% (HCC) Use twice daily 1 Kit 0 9 Active Insulin Pen Needle 32G X 8 MM MISCIndications:Type 2 diabetes mellitus with hemoglobin A1c goal of less than 8.0% ([facility]) Use as directed 2 times a day. [...] with breakfast 60 Tablet 2 Active OneTouch Deljames Lancets 33GIndications:Type 2 diabetes mellitus with hemoglobin A1c goal of less than 8.0% ([facility]) Use as directed 4 times per day 400 Each 3 3 Active Levothyroxine Sodium 175 MCG Oral Tablet (Levoxyl)Indications:Acq uired hypothyroidism TAKE ONE TABLET BY MOUTH EVERY MORNING AT LEAST 30 MINUTES PRIOR TO BREAKFAST OR OTHER MEDICATIONS 90 Tablet 3 Active Aspirin Low Dose 81 MG Oral Tablet Delayed Release (aspirin enteric coated)Indications:Cereb rovascular disease, arteriosclerotic, post-stroke TAKE TWO TABLETS BY MOUTH EVERY MORNING 180 Tablet 3 Active Famotidine 20 MG Oral Tablet (Pepcid)Indications:Maria Elena roesophageal reflux disease without esophagitis TAKE 1 TABLET BY MOUTH IN THE MORNING AND 1 TABLET BEFORE BEDTIME 60 Tablet 3 Active BD Pen Needle Mini U/F 31G X 5 MM (Insulin Pen Needle) Use 4 times daily with insulin injections 100 Each 3 Active FLUoxetine HCl 40 MG Oral Capsule (PROzac)Indications:Estrellita e eating disorder Take 1 Capsule by mouth in the morning. 30 Capsule 3 Active amLODIPine Besylate 10 MG Oral [...] MORNING 90 Tablet 0 3 Active Nystatin 059912 UNIT/GM External Powder (Nystop)Indications:Viki a cruris Apply [...] of insulin ([facility]) Inject 40 Units under the skin at bedtime. TITRATING DOSE EVERY 2 WEEKS UNTIL BG LESS THAN 180 (Levemir not being made anymore) 45 mL 3 4 Active documented as of this encounter (statuses as of 11/12/2023) Active Problems Problem Noted Date Diagnosed Date [...] Advance Directive brochure mailed to patient. Donita dcs 07/26/2000 documented as of this encounter (statuses as of 11/12/2023) Resolved Problems Problem Noted Date Diagnosed Date [...] as of this encounter (statuses as of 11/12/2023) Immunizations Name Administration Dates Next Due COVID-19 mRNA, LNP-s, No Pre serve, 2-Dose Series ([employer]) 06/07/2021,12/26/2020 H1N1 2009 Influenza, IM 09/01/2009 Hepatitis B, 20+ yrs 05/31/2014,12/10/2013,11/08 Pneumococcal Conjugate Vacci ne, 20-valent ([id number]) 03/07/2022 Pneumococcal Polysaccharide PPV23 (Pneumovax) 04/29/2008 Seasonal [...] oz pur e alcohol) comunion wine at [facility] PHQ-2 Answer Date Recorded PHQ-2 Score -1 [...] encounter Miscellaneous Notes * Telephone Encounter - Mya Otero, MED ASSIST - 11/12/2023 4:19 PM EST ----- Message from Corry Valdovinos PA-C sent at 11/10/2023 7:12 PM EST ----- Please call and inform abnormal thyroid studies. Was he taking his medicine?? documented in this encounter Plan of Treatment Upcoming Encounters Date Type Department Care Team (Late st Contact Info) Description 11/28/2023 9:30 AM EST Telemedicine [facility] [place] [address] [place] [address] Clotilde Alexander LCSW [address] [place] [address] 12/04/2023 1:00 PM EST Office Visit Family Practice [facility] [place] [address] [facility] [place] [address] Natalie Collazo MD 200 [place] [address] Health Maintenance Due Date Last Done Comments [...] 11/06/2023, 02/0 06/2023, 10/18/2022, Additional history exists GFR 11/06/2024 11/06/2023, 02/0 06/2023, 12/06/2021, Additional history exists TSH 11/06/2024 11/06/2023, 02/0 06/2023, 11/02/2021, Additional history exists Colonoscopy 07/25/2027 07/25/2017 Colorectal [...] filedocumented as of this encounter Care Teams Band Shover Relationship Specialty Start Date End Date Jennifer Jimenez DO [address] [place] [address] PCP - General Family Medicine 09/17/18 documented as of this encounter
--- OUTSIDE RECORDS SUMMARY | 2024-03-07 13:22 | External Medical Summary | Summary of Care ---
Author Name Unknown Organization [facility] Address [address] [place] [address] Phone [phone] Care Team Providers Care Car Lubricator Name Role Phone Katheryn Jimenez DO Primary Care Provider Reason for Visit * Reason Comments eRx-Medication Refill Encounter Details Date Type Department Care Team (Late st Contact Info) Description 11/07/2023 Refill Pharmacy, [facility] [address] [facility] [place] [address] Katheryn Jimenez DO [address] [facility] [place] [place] [address] HTN, goal below 140/90*; Type 2 diabetes mellitus with hyperglycemia, with long-term current use of insulin (HCC) Allergies Active Allergy Reactions Criticality Noted Date Comments Doxycycline Hives 08/01/2012 Macrolides And Ketolides 07/15/2000 unknown Morphine And Related 06/11/2008 GI upset Penicillins 08/29/1999 1969 anaphylaxis documented as of this encounter (statuses as of 11/07/2023) Medications Medication Sig Dispensed Refills Start Date End Date Status Blood Glucose Monitoring Suppl (ONETOUCH ULTRA SYSTEM) w/Device KITIndications:Type 2 diabetes mellitus with hemoglobin A1c goal of less than 8.0% ([facility]) Use as directed 4 times a day as needed for Hyperglycemia (high sugar). Use up to four times a day as directed 1 Kit 0 018 Active Blood Glucose Monitoring Suppl (ONETOUCH ULTRA 2) w/Device KITIndications:Type 2 diabetes mellitus with hemoglobin A1c goal of less than 8.0% ([facility]) Use twice daily 1 Kit 0 019 Active Insulin Pen Needle 32G X 8 MM MISCIndications:Type 2 diabetes mellitus with hemoglobin A1c goal of less than 8.0% ([facility]) Use as directed 2 times a day. To inject insulin. 200 Each 3 Active Melatonin 3 MG Oral Tablet Disintegrating Take 1 Tablet at bedtime by mouth. 30 Tablet 5 Active Lactobacillus Extra Strength Oral Capsule Take 1 Capsule daily by mouth. 30 Capsule 0 Active Acetaminophen ER 650 MG Oral Tablet Extended Release Take 1 Tablet by mouth every 8 hours as needed for Pain, Moderate. 30 Tablet 0 Active Clobetasol Propionate 0.05 % External Cream (Temovate)Indications:D ermatitis Apply 2 times a day topically to affected area. To affected area for up to two weeks. 60 g 1 Active metFORMIN HCl ER 500 MG Oral Tablet Extended Release 24 Hour (Glucophage XR) 1 daily with breakfast x 2 weeks then 2 daily with breakfast 60 Tablet Active OneTouch Delica Lancets 33GIndications:Type 2 diabetes mellitus with hemoglobin A1c goal of less than 8.0% ([facility]) Use as directed 4 times per day 400 Each Active Levothyroxine Sodium 175 MCG Oral Tablet (Levoxyl)Indications:Ac quired hypothyroidism TAKE ONE TABLET BY MOUTH EVERY MORNING AT LEAST 30 MINUTES PRIOR TO BREAKFAST OR OTHER MEDICATIONS 90 Tablet Active Aspirin Low Dose 81 MG Oral Tablet Delayed Release (aspirin enteric coated)Indications:Cere brovascular disease, arteriosclerotic, post-stroke TAKE TWO TABLETS BY MOUTH EVERY MORNING 180 Tablet Active Famotidine 20 MG Oral Tablet (Pepcid)Indications:Gas troesophageal reflux disease without esophagitis TAKE 1 TABLET BY MOUTH IN THE MORNING AND 1 TABLET BEFORE BEDTIME 60 Tablet Active BD Pen Needle Mini U/F 31G X 5 MM (Insulin Pen Needle) Use 4 times daily with insulin injections 100 Each Active FLUoxetine HCl 40 MG Oral Capsule (PROzac)Indications:Bin ge eating disorder Take 1 Capsule by mouth in the morning. 30 Capsule Active amLODIPine Besylate 10 MG Oral Tablet [...] MORNING 90 Tablet 0 023 Active Nystatin 740988 UNIT/GM External Powder (Nystop)Indications:Tin ea cruris Apply topically to affected area 3 times a day. Apply to scrotum 60 g 2 024 Active Triamcinolone Acetonide 0.1 % External Cream (Aristocort) Apply topically to affected area 2 times a day. To affected area. vaseline after 453.6 g 5 024 Active Lisinopril 20 MG Oral Tablet (Prinivil)Indications:T ype 2 diabetes mellitus with hyperglycemia, with long-term current use of insulin ([facility]),HTN, goal below 140/90 TAKE ONE TABLET BY MOUTH EVERY MORNING 90 Tablet 3 024 Active Insulin Glargine Solostar 100 UNIT/ML Subcutaneous Solution Pen-injector (Lantus SoloStar)Indications:Ty pe 2 diabetes mellitus with hyperglycemia, with long-term current use of insulin ([facility]) Inject 40 Units under the skin at bedtime. TITRATING DOSE EVERY 2 WEEKS UNTIL BG LESS THAN 180 (Levemir not being made anymore) 45 mL 3 024 Active Levemir FlexTouch 100 UNIT/ML Subcutaneous Solution Pen-injector (Insulin Detemir)Indications:Typ e 2 diabetes mellitus with hyperglycemia, with long-term current use of insulin ([facility]) Inject 40 units subcutaneously before bedtime. Titrating dose every 2 weeks until BG <180 15 mL 11 023 2023 Discontinued(M edication/Dose Changed) Lisinopril 20 MG Oral Tablet (Prinivil) TAKE ONE TABLET BY MOUTH EVERY MORNING 30 Tablet 2 023 2023 Discontinued documented as of this encounter (statuses as of 11/07/2023) Active Problems Problem Noted Date Diagnosed Date [...] as of this encounter (statuses as of 11/07/2023) Resolved Problems Problem Noted Date Diagnosed Date [...] as of this encounter (statuses as of 11/07/2023) Immunizations Name Administration Dates Next Due COVID-19 mRNA, LNP-s, No Pre serve, 2-Dose Series ([employer]) 06/07/2021,12/26/2020 H1N1 2009 Influenza, IM 09/01/2009 Hepatitis B, 20+ yrs 05/31/2014,12/10/2013,11/08 Pneumococcal Conjugate Vacci ne, 20-valent ([id number]) 03/07/2022 Pneumococcal Polysaccharide PPV23 (Pneumovax) 04/29/2008 Seasonal [...] oz pur e alcohol) [facility] PHQ-2 Answer Date Recorded PHQ-2 Score -1 [...] Encounter - Luz Maria Hernandez RPh - 11/07/2023 7:40 AM ESTSigned Prescriptions: Disp Refills Lisinopril 20 MG Oral Tablet (Prinivil) 90 Tab*3 Sig: TAKE ONE TABLET BY MOUTH EVERY MORNINGAuthorizing Provider: KATHERYN JIMENEZ User: LUZ MARIA LOGAN V Insulin Glargine Solostar 100 UNIT/ML Subc*45 mL 3 Sig: Inject 40 Units under the skin at bedtime.TITRATING DOSE EVERY 2 WEEKS UNTIL BG LESS THAN 180 (Levemir not being made anymore )Authorizing Provider: KATHERYN JIMENEZ User: LUZ MARIA LOGAN VRefused Prescriptions: Disp Refills Levemir FlexPen 100 UNIT/ML Subcutaneous S*15 mL 11 Sig: INJECT 40 UNITS UNDER THE SKIN BEFORE BEDTIME, TITRATING DOSE EVERY 2 WEEKS UNTIL BG LESS THAN 180Refused By: LUZ MARIA LOGANeason for Refusal: Other (comment below) * Telephone Encounter - Luz Maria Hernandez RPh - 11/07/2023 7:34 AM EST Did you pend patient's preferred pharmacy and medication before forwarding?no Pharmacy: [facility] [id number] Pending Prescriptions: Disp Refills Levemir FlexPen 100 UNIT/ML Subcutaneous *15 mL 11 Sig: INJECT 40 UNITS UNDER THE SKIN BEFORE BEDTIME, TITRATING DOSE EVERY 2 WEEKS UNTIL BG LESS THAN 180 Lisinopril 20 MG Oral Tablet (Prinivil) [*30 Tab*2 Sig: TAKE ONE TABLET BY MOUTH EVERY MORNING Last Visit: 10/18/2022 (in office), 02/28/2023 (telemedicine) Next Visit: Visit date not found If no future appointments scheduled, and last appointment is greater than a year ago, please schedule patient for a follow-up appointment Last date the medication was ordered: 08/07/23 Is this request for a controlled substance?No Urine Drug Screen:No results found. However, due to the size of the patient record, not all encounters were searched. Please check Results Review for a complete set of results. Patient Phone Numbers Labs: Lab Results Component Value Date/Time CREAT 1.1 11/06/2023 11:16 AM CREAT 1.10 06/02/2020 12:00 AM CREAT 0.9 12/15/2017 12:20 PM POTASSIUM 4.4 11/06/2023 11:16 AM POTASSIUM 4.7 06/02/2020 12:00 AM POTASSIUM 4.4 12/15/2017 12:20 PM TSH 32.10 (H) 11/06/2023 11:16 AM TSH 2.93 06/02/2020 12:00 AM TSH 7.73 (H) 12/10/2017 09:39 AM LDLCALC 107 11/06/2023 11:16 AM LDLCALC 62 06/02/2020 12:00 AM LDLCALC 67 03/28/2017 10:20 AM LDLDIRECT 90 11/21/2022 10:17 AM LDLDIRECT NOT APPLICABLE 03/28/2017 10:20 AM LDLDIRECT 74 09/12/2016 09:39 AM ALT 14 11/06/2023 11:16 AM ALT 11 12/10/2017 09:39 AM HGBA1C 12.5 (H) 11/06/2023 11:16 AM HGBA1C >14.0 (H) 10/18/2022 12:42 PM HGBA1C 8.7 (A) 10/30/2020 12:00 AM HGBA1C 7.5 (H) 12/05/2017 02:37 PM Luz Maria Logan, Fatou, CACP, CDE Clinical Pharmacist [facility] 11/07/2023, 7:34 AM documented in this encounter Plan of Treatment Upcoming Encounters Date Type Department Care Team (Late st Contact Info) Description 11/28/2023 9:30 AM EST Telemedicine [facility], [place] [address] [place] [address] Clotilde Alexander, [facility] [address] [place] [address] 12/04/2023 1:00 PM EST Office Visit Family Practice [facility] [address] [place] [address] Natalie Collazo MD [address] [place] [address] Health Maintenance Due Date Last Done Comments [...] encounter Visit Diagnoses Diagnosis HTN, goal below 140/90- Primary Unspecified essential hypertension Type 2 diabetes mellitus with hyperglycemia, with long-term current use of insulin (HCC) documented in this encounter Care Teams Car Lubricator Relationship Specialty Start Date End Date Katheryn Jimenez DO [address] [place] [address] PCP - General Family Medicine 09/17/18 documented as of this encounter
--- OUTSIDE RECORDS SUMMARY | 2024-03-07 13:22 | External Medical Summary | Summary of Care ---
Author Name Unknown Organization [facility] Address [address] [facility] [place] [address] Phone [phone] Care Team Providers Care Biofuels Manager Name Role Phone Jennifer Jimenez Miryam Primary Care Provider Reason for Visit * Reason Comments Outpatient Testing Encounter Details Date Type Department Care Team (Late st Contact Info) Description 11/06/2023 11:00 AM EST Laboratory Laboratory [facility] [address] [place] [address] [facility] [address] [facility] [place] [address] Type 2 diabetes mellitus with hemoglobin A1c goal of less than 8.0% (HCC); Pure hypercholesterolemia; Routine medical exam; Encounter for long-term (current) use of medications; Fatigue, unspecified type; Acute URI; LUQ abdominal pain; DYSLIPIDEMIA, GOAL LDL BELOW 100; HTN, goal below 140/90; Acquired hypothyroidism Allergies Active Allergy Reactions Criticality Noted Date Comments Doxycycline Hives 08/01/2012 Macrolides And Ketolides 07/15/2000 unknown Morphine And Related 06/11/2008 GI upset Penicillins 08/29/1999 1969 anaphylaxis documented as of this encounter (statuses as of 11/06/2023) Medications Medication Sig Dispensed Refills Start Date End Date Status Blood Glucose Monitoring Suppl (Micello ULTRA SYSTEM) w/Device KITIndications:Type 2 diabetes mellitus with hemoglobin A1c goal of less than 8.0% (HCC) Use as directed 4 times a day as needed for Hyperglycemia (high sugar). Use up to four times a day as directed 1 Kit 0 12/16/19 18 Active Blood Glucose Monitoring Suppl (Micello ULTRA 2) w/Device KITIndications:Type 2 diabetes mellitus with hemoglobin A1c goal of less than 8.0% ([facility]) Use twice daily 1 Kit 0 04/13/20 19 Active Insulin Pen Needle 32G X 8 MM MISCIndications:Type 2 diabetes mellitus with hemoglobin A1c goal of less than 8.0% ([facility]) Use as directed 2 times [...] Moderate. 30 Tablet 0 11/06/19 22 Active Clobetasol Propionate 0.05 % External Cream (Temovate)Indications:De rmatitis Apply 2 times a day topically to affected area. To affected area for up to two weeks. 60 g 1 11/06/19 22 Active metFORMIN HCl ER 500 MG Oral Tablet Extended Release 24 Hour (Glucophage XR) 1 daily with breakfast x 2 weeks then 2 daily with breakfast 60 Tablet 11 06/21/20 22 Active OneTouch Delica Lancets 33GIndications:Type 2 diabetes mellitus with hemoglobin A1c goal of less than 8.0% ([facility]) Use as directed 4 times per day 400 Each 3 10/18/19 23 Active Levemir FlexTouch 100 UNIT/ML Subcutaneous Solution Pen-injector (Insulin Detemir)Indications:Type 2 diabetes mellitus with hyperglycemia, with long-term current use of insulin ([facility]) Inject 40 units subcutaneously before bedtime. Titrating dose every 2 weeks until BG <180 15 mL 10/18/19 23 Active Levothyroxine Sodium 175 MCG [...] 1 TABLET BEFORE BEDTIME 60 Tablet 11 03/23/20 23 Active BD Pen Needle Mini [...] MORNING 90 Tablet 1 06/20/20 23 Active Lisinopril 20 MG Oral Tablet (Prinivil) TAKE ONE TABLET BY MOUTH EVERY MORNING 30 Tablet 2 08/07/20 23 Active Rosuvastatin Calcium 20 MG Oral Tablet (Crestor)Indications:Pur e hypercholesterolemia TAKE ONE TABLET BY MOUTH EVERY MORNING 90 Tablet 0 10/08/20 23 Active Nystatin 493661 UNIT/GM External Powder (Nystop)Indications:Viki a cruris Apply topically to affected area 3 times a day. Apply to scrotum 60 g 2 10/30/19 24 Active Triamcinolone Acetonide 0.1 % External Cream (Aristocort) Apply topically to affected area 2 times a day. To affected area. vaseline after 453.6 g 5 10/30/19 24 Active documented as of this encounter (statuses as of 11/06/2023) Active Problems Problem Noted Date Diagnosed Date [...] as of this encounter (statuses as of 11/06/2023) Resolved Problems Problem Noted Date Diagnosed Date [...] as of this encounter (statuses as of 11/06/2023) Immunizations Name Administration Dates Next Due COVID-19 mRNA, LNP-s, No Pre serve, 2-Dose Series (Pfizer) 06/07/2021,12/26/2020 H1N1 2009 Influenza, IM 09/01/2009 Hepatitis B, 20+ yrs 05/31/2014,12/10/2013,11/08 Pneumococcal Conjugate Vacci ne, 20-valent ([id number]) 03/07/2022 Pneumococcal Polysaccharide PPV23 (Pneumovax) 04/29/2008 Seasonal [...] oz pur e alcohol) comunion wine at [facility] PHQ-2 Answer Date Recorded PHQ-2 Score [...] st Contact Info) Description 11/28/2023 9:30 AM [facility] Telemedicine [facility], [address] [address] Clotilde Alexander LCSW [address] [place] [address] 12/04/2023 1:00 PM EST Office Visit Family Practice [facility] [place] [address] [facility] [place] [address] aNtalie Collazo MD [address] [facility] [place] [address] Pending Results Name Type Priority Associated Diagnoses Date /Time HEMOGLOBIN A1C Lab Routine Type 2 diabetes mellitus with hemoglobin A1c goal of less than 8.0% (HCC) 11/06/2023 11:16 AM EST LIPID PANEL WITH DIRECT LDL IF TG IS HIGH Lab Routine Pure hypercholesterolemia Routine medical exam Encounter for long-term (current) use of medications 11/06/2023 11:16 AM EST BNP, NT-PRO Lab STAT Fatigue, unspecified type Acute URI 11/06/2023 11:16 AM EST LYME DISEASE ANTIBODY SCREEN WITH REFLEX TO CONFIRMATION Lab STAT Fatigue, unspecified type Acute URI 11/06/2023 11:16 AM EST ANAPLASMA PHAGOCYTOPHILUM DNA, QL REAL-TIME PCR Lab STAT Fatigue, unspecified type Acute URI 11/06/2023 11:16 AM EST LIPASE Lab STAT LUQ abdominal pain 11/06/2023 11:16 AM EST COMPREHENSIVE METABOLIC PANEL Lab Routine Type 2 diabetes mellitus with hemoglobin A1c goal of less than 8.0% (HCC) HTN, goal below 140/90 DYSLIPIDEMIA, GOAL LDL BELOW 100 11/06/2023 11:16 AM EST TSH WITH FREE T4 IF INDICATED Lab Routine Acquired hypothyroidism 11/06/2023 11:16 AM EST LYME DISEASE ANTIBODY SCREEN Lab STAT Fatigue, unspecified type Acute URI 11/06/2023 11:16 AM EST Health Maintenance Due Date Last Done Comments Hepatitis C Screening 1985 Cologuard 2012 Fecal Occult Blood Test 2012 Sigmoidoscopy 2012 Albumin/Creatinine Ratio 06/02/2021 020, 06/19/2018, 07/11/2017, Additional history exists Depression Screening 08/25/2021 08/25/2020 HbA1c 05/21/2023 11/21/2022, 03/2023, 03/07/2022, Additional history exists COVID-19 Vaccine (3 - 2022-24 season) 2023 06/07/2021, 12/26/2020 Influenza Vaccine (FLU shot) (#1) 2023 06/21/2022, 06/29/2021, 07/24/2020, Additional history exists GFR 11/21/2023 11/21/2022, 11/14, 11/02/2021, Additional history exists TSH 11/21/2023 11/21/2022, 10/14, 07/05/2021, Additional history exists Diabetic Eye Exam 04/24/2024 04/24/2023, , 02/11/2018, Additional history exists Diabetic Foot Exam 04/24/2024 04/24/2023, 0 03/07/2022, 08/24/2020, Additional history exists Colonoscopy 07/25/2027 07/25/2017 Colorectal [...] Procedure Name Priority Date/Time Associated Diagnosis Comments MONONUCLEOSIS HETEROPHILE ANTIBODY STAT 11/06/2023 11:16 AM EST Fatigue, unspecified type Acute URI documented in this encounter Results * MONONUCLEOSIS HETEROPHILE ANTIBODY (11/06/2023 11:16 AM EST) Mononucleosis Antibody Negative Negative 11/06/2023 11:30 AM EST [facility] Blood Venous blood specimen / Unknown Venipuncture / Unknown 11/06/2023 11:16 AM EST 11/06/2023 11:16 AM EST Chandra Braun PA-C LAB BLOOD O RDERABLES Performing Organization Address City/State/[facility] Co de Phone Number [facility] [address] [place] [address] documented in this encounter Visit Diagnoses Diagnosis Type 2 diabetes mellitus with hemoglobin A1c goal of less than 8.0% (HCC) Pure hypercholesterolemia Routine medical exam Routine general medical examination at a health care facility Encounter for long-term (current) use of medications Encounter for long-term (current) use of other medications Fatigue, unspecified type Acute URI Acute upper respiratory infections of unspecified site LUQ abdominal pain Abdominal pain, left upper quadrant DYSLIPIDEMIA, GOAL LDL BELOW 100 Other and unspecified hyperlipidemia HTN, goal below 140/90 Unspecified essential hypertension Acquired hypothyroidism Unspecified hypothyroidism documented in this encounter Care Teams Biofuels Manager Relationship Specialty Start Date End Date Jennifer Jimenez DO [address] [facility] [place] [address] PCP - General Family Medicine 09/17/18 documented as of this encounter
--- OUTSIDE RECORDS SUMMARY | 2024-03-07 13:22 | External Medical Summary ---
Author Name Unknown Address Unknown Organization [id number]:LABORATORY [facility] - [address] [address] Laboratory Report Ordering Provider Test Date Status ARLYN JAVIER 11/06/2023 11:16:17 Final Observation Date Value Abnormality Reference (Units ) Status Lipase 11/06/2023 11:16:17 46 13-60 (U/L ) Final Performing Location [facility]ORY [facility] - [address] [facility] [address]
--- OUTSIDE RECORDS SUMMARY | 2024-03-07 13:22 | External Medical Summary ---
Author Name Unknown Address Unknown Organization [id number]:LABORATORY [facility] - [address] [facility] [address] Laboratory Report Ordering Provider Test Date Status 11/06/2023 11:16:17 Final Observation Date Value Abnormality Reference (Units ) Status TSH 11/06/2023 11:16:17 32.10 Above high normal 0. 27-4.20 (uIU/mL) Final Performing Location LABORATORY [facility] - [address] [facility] [address]
--- OUTSIDE RECORDS SUMMARY | 2024-03-07 13:22 | External Medical Summary ---
Author Name Unknown Address Unknown Organization [id number]:LABORATORY [facility] - [address] [place] [address] Laboratory Report Ordering Provider Test Date Status MICHELLE KEATING III 11/06/2023 11:16:17 Final Observation Date Value Abnormality Reference (Units ) Status HbA1C 11/06/2023 11:16:17 12.5 Above high normal 4. 0-5.6 (%) Final The use of HbA1c to monitor glycemic status is based on normal hemoglobin and HbA composition. This test should not be used in patients with abnormal hemoglobin that affects the half life of the red blood cell or the in vivo glycation rates. Glucose, estimated average 11/06/2023 11:16:17 312 Above high normal <126 (mg/dL) Madhu yang Performing Location LABORATORY [facility] - [address] [place] [address]
--- OUTSIDE RECORDS SUMMARY | 2024-03-07 13:22 | External Medical Summary ---
Author Name Unknown Address Unknown Organization : Laboratory Report Ordering Provider Test Date Status ARLYN JAVIER 11/06/2023 11:16:17 Final Observation Date Value Abnormality Reference (Units ) Status Anaplasma phagocytophilum DNA [Presence] in Blood by JONAS with probe detection 11/06/2023 11:16:17 Not Detected Not Detected Final This test was developed and its analytical performance
characteristics have been determined by [email or web address] [place], [place]. It has
not been cleared or approved by the U.S. Food and Drug
Administration. This assay has been validated pursuant
to the CLIA regulations and is used for clinical
purposes.

Test Performed at:
[employer] [facility]
[address]
[place] [address]
Danilo Dobbs M.D., Ph.D.,Director of Laboratories Performing Location
--- OUTSIDE RECORDS SUMMARY | 2024-03-07 13:22 | External Medical Summary | Summary of Care ---
Author Name Unknown Organization [facility] Address [address] [facility] [place] [address] Phone [phone] Care Team Providers Care Forming Department Supervisor Name Role Phone Jennifer Jimenez Miryam Primary Care Provider Reason for Visit * Reason Comments Outpatient Testing Encounter Details Date Type Department Care Team (Late st Contact Info) Description 11/29/2023 1:50 PM EST Laboratory [facility], [facility] [address] [place] [address] [facility] [address] [place] [address] Right foot pain Allergies Active Allergy Reactions Criticality Noted Date [...] MORNING 90 Tablet 0 3 Active Nystatin [id number] UNIT/GM External Powder (Nystop)Indications:Viki a cruris Apply [...] hyperglycemia, with long-term current use of insulin ([facility]) Inject 40 Units under the skin [...] Advance Directive brochure mailed to patient. Donita waldropuris 07/26/2000 documented as of this encounter (statuses [...] yrs 05/31/2014,12/10/2013,11/08 Pneumococcal Conjugate Vacci ne, 20-valent ([id number]) 03/07/2022 Pneumococcal Polysaccharide PPV23 (Pneumovax) 04/29/2008 Seasonal [...] oz pur e alcohol) comunion wine at [employer] PHQ-2 Answer Date Recorded PHQ-2 Score -1 [...] 1:00 PM EST Office Visit Family Practice [place] [address] [place] [address] Natalie Collazo MD [address] [place] [address] Pending Results Name Type Priority Associated Diagnoses Date /Time URIC ACID Lab Routine Right foot pain 11/29/2023 1:31 PM EST BASIC METABOLIC PANEL Lab Routine Right foot pain 11/29/2023 1:31 PM EST Health Maintenance Due Date Last Done [...] Procedure Name Priority Date/Time Associated Diagnosis Comments DIFFERENTIAL, AUTOMATED Routine 11/29/2023 1:31 PM EST Right foot pain CBC Routine 11/29/2023 1:31 PM EST Right foot pain CBC Routine 11/29/2023 1:31 PM EST Right foot pain documented in this encounter Results * (ABNORMAL) DIFFERENTIAL, AUTOMATED (11/29/2023 1:31 PM EST) WBC 8.26 4.00 - 10.80 K/uL 11/29/2023 1:42 PM EST [facility] Neutrophils % 75.4(H) 40.0 - 75.0 % 11/29/2023 1:42 PM EST [facility] Lymphocytes % 14.0(L) 18.0 - 42.0 % 11/29/2023 1:42 PM EST [facility] Monocytes % 6.1 1.0 - 11.0 % 11/29/2023 1:42 PM EST [facility] Eosinophils % 3.9 0.0 - 6.0 % 11/29/2023 1:42 PM EST [facility] Basophils % 0.6 0.0 - 2.0 % 11/29/2023 1:42 PM EST [facility] Absolute Neutrophils 6.23 1.80 - 7.70 K/uL 11/29/2023 1:42 PM EST [facility] Absolute Lymphocytes 1.16 1.00 - 4.80 K/ul 11/29/2023 1:42 PM EST [facility] Absolute Monocytes 0.50 0.00 - 1.10 K/uL 11/29/2023 1:42 PM EST [facility] 57[facility]10 Absolute Eosinophils 0.32 0.00 - 0.70 K/uL 11/29/2023 1:42 PM EST [facility]10 Absolute Basophils 0.05 0.00 - 0.20 K/uL 11/29/2023 1:42 PM EST [facility]10 Blood Venous blood specimen / Unknown Venipuncture / Unknown 11/29/2023 1:31 PM EST 11/29/2023 1:31 PM EST Vero Clmeons PA-C LAB BLOOD ORDERABLES LAB[facility]ATORY [place] [address] [address] [place] [address] * CBC (11/29/2023 1:31 PM EST) WBC 8.26 4.00 - 10.80 K/uL 11/29/2023 1:42 PM EST [facility] RBC 5.76 4.50 - 5.25 M/uL 11/29/2023 1:42 PM EST [facility]10 HGB 16.1 14.0 - 16.8 g/dL 11/29/2023 1:42 PM EST [facility]10 HCT 45.8 40.0 - 48.4 % 11/29/2023 1:42 PM EST [facility]10 MCV 79.5 82.0 - 99.5 fL 11/29/2023 1:42 PM EST [facility] MCH 28.0 27.0 - 34.0 pg 11/29/2023 1:42 PM EST [facility] MCHC 35.2 32.0 - 36.0 g/dL 11/29/2023 1:42 PM EST [facility]10 RDW 14.2 11.5 - 15.5 % 11/29/2023 1:42 PM EST [facility] PLT 240 140 - 400 K/uL 11/29/2023 1:42 PM EST [facility]ORY [facility]10 MPV 9.6 6.6 - 11.1 fL 11/29/2023 1:42 PM EST [facility] Blood Venous blood specimen / Unknown Venipuncture / Unknown 11/29/2023 1:31 PM EST 11/29/2023 1:31 PM EST Vero Clemons PA-C LAB BLOOD ORDERABLES Performing Organization Address City/State/[facility] Co de Phone Number [facility]ORY [facility] [facility] [place] [address] documented in this encounter Visit Diagnoses Diagnosis Right foot pain Pain in limb documented in this encounter Care Teams Forming Department Supervisor Relationship Specialty Start Date End Date Jennifer Jimenez DO [address] [place] [address] PCP - General Family Medicine 09/17/18 documented as of this encounter
--- OUTSIDE RECORDS SUMMARY | 2024-03-07 13:22 | External Medical Summary ---
Author Name Unknown Address Unknown Organization K01:LABORATORY [facility] - [address] [place] [address] Laboratory Report Ordering Provider Test Date Status ARLYN JAVIER 11/06/2023 11:16:17 Final Exclude Heart Failure: <300 pg/mL
Diagnose Heart Failure:
Age <50 yr: >450 pg/mL
50-75 yr: >900 pg/mL
>75 yr: >1800 pg/mL
GFR is 30-59 mL/min: >1200 pg/mL or Age- adjusted values
GFR <30 mL/min: do not use, not reliable

Prognostic threshold: 1000 pg/mL Observation Date Value Abnormality Reference (Units ) Status BNP, Pro-hormone 11/06/2023 11:16:17 506 Above high no rmal <300 (pg/mL) Final Performing Location LABORATORY [facility] - [address] [place] [address]
--- OUTSIDE RECORDS SUMMARY | 2024-03-07 13:22 | External Medical Summary ---
Author Name Unknown Address Unknown Organization [id number]:LABORATORY [place] [facility] - [address] [place] [address] Laboratory Report Ordering Provider Test Date Status TORI FARRELL 11/29/2023 13:31:15 Final Observation Date Value Abnormality Reference (Units ) Status SYNC LEUKOCYTES IN BLOOD BY AUTOMATED COUNT 11/29/2023 13:31:15 8.26 4.00-10.80 (K/uL) Final Segs 11/29/2023 13:31:15 75.4 Above high normal 40.0-75.0 (%) Final Lymphs % 11/29/2023 13:31:15 14.0 Below low normal 18.0-42.0 (%) Final Monos 11/29/2023 13:31:15 6.1 1.0-11.0 (%) Final Eosinophils 11/29/2023 13:31:15 3.9 0.0-6.0 (%) Final Basos 11/29/2023 13:31:15 0.6 0.0-2.0 (%) Final Absolute Segs 11/29/2023 13:31:15 6.23 1.80-7.70 (K/uL) Final Lymphs, absolute 11/29/2023 13:31:15 1.16 1.00-4.80 (K/ul) Final Monos, Abs 11/29/2023 13:31:15 0.50 0.00-1.10 (K/uL) Final Eos, Abs 11/29/2023 13:31:15 0.32 0.00-0.70 (K/uL) Final Basos, Abs 11/29/2023 13:31:15 0.05 0.00-0.20 (K/uL) Final Performing Location LABORATORY [place] [facility] 0 - [address] [place] [address]
--- OUTSIDE RECORDS SUMMARY | 2024-03-07 13:22 | External Medical Summary ---
Author Name Unknown Address Unknown Organization K01:LABORATORY [facility] - [address] [place] [address] Laboratory Report Ordering Provider Test Date Status 11/06/2023 11:16:17 Final Observation Date Value Abnormality Reference (Units ) Status T4, Free 11/06/2023 11:16:17 0.5 Below low normal 0.9 -1.7 (ng/dL) Final Performing Location LABORATORY [facility] - [address] [place] [address]
--- OUTSIDE RECORDS SUMMARY | 2024-03-07 13:22 | External Medical Summary | Summary of Care ---
Author Name Unknown Organization [facility] Address [address] [facility] [place] [place] [place] [address] Phone [phone] Care Team Providers Care Hydration Plant Operator Name Role Phone Jennifer Jimenez Miryam Primary Care Provider Reason for Referral * Evaluate & Treat - Unlimited Visits (Within 30 days (routine)) - Pending Review Specialty Diagnoses / Procedures Referred By Poonam mccray Referred To Contact Psychology Diagnoses Current moderate episode of major depressive disorder, unspecified whether recurrent (HCC) Corry Valdovinos PA-C [address] [place] [address] Referral ID Status Reason Start Date Expiration Date Visits Requested Visits Authorized [id number] Pending Review Specialty Services Required 10/30/[phone] Question Answer Referral Priority Within 30 days (routine) Where should this appointment be scheduled? [facility] Is this referral for medication management? No Reason for Referral: Adjustment/Stress/Grief * Evaluate & Treat - Unlimited Visits (Within 3 days (urgent)) - Pending Review Specialty Diagnoses / Procedures Referred By Poonam mccray Referred To Contact Ophthalmology Diagnoses Visual changes Corry Valdovinos PA-C [address] [place] [address] Referral ID Status Reason Start Date Expiration Date Visits Requested Visits Authorized [id number] Pending Review Specialty Services Required 10/30/[phone] Question Answer Referral Priority Within 3 days (urgent) Where should this appointment be scheduled? [facility] Referring for: Ophthalmology Conditions Ophthalmology Conditions Other Ophthalmology (comment) Comments Flashing lights, Reason for Visit * Reason Comments Visual Disturbance Right eye * Evaluate & Treat - Unlimited Visits (Within 10 days (routine)) - Pending Review Specialty Diagnoses / Procedures Referred By Poonam mccray Referred To Contact Family Medicine Diagnoses Major depressive disorder with current active episode, unspecified depression episode severity, unspecified whether recurrent Chandra Braun PA-C [address] [place] [place] [address] Referral ID Status Reason Start Date Expiration Date Visits Requested Visits Authorized [id number] Pending Review Specialty Services Required [phone] Encounter Details Date Type Department Care Team (Late st Contact Info) Description 10/30/2023 6:40 PM EST Office Visit Family Practice [facility] [place] [address] [facility] [place] [address] Corry Valdovinos PA-C [address] [facility] [place] [address] Visual changes*; Tinea cruris; Type 2 diabetes mellitus with hemoglobin A1c goal of less than 8.0% (HCC); HTN, goal below 140/90; DYSLIPIDEMIA, GOAL LDL BELOW 100; Acquired hypothyroidism; Current moderate episode of major depressive disorder, unspecified whether recurrent (HCC); Major depressive disorder, recurrent episode, moderate (HCC) Allergies Active Allergy Reactions Criticality Noted Date Comments Doxycycline Hives 08/01/2012 Macrolides And Ketolides 07/15/2000 unknown Morphine And Related 06/11/2008 GI upset Penicillins 08/29/1999 1969 anaphylaxis documented as of this encounter (statuses as of 10/30/2023) Medications Medication Sig Dispensed Refills Start Date End Date Status Blood Glucose Monitoring Suppl (ONETOUCH ULTRA SYSTEM) w/Device KITIndications:Type 2 diabetes mellitus with hemoglobin A1c goal of less than 8.0% (HCC) Use as directed 4 times a day as needed for Hyperglycemia (high sugar). Use up to four times a day as directed 1 Kit 0 12/16/19 18 Active Blood Glucose Monitoring Suppl (ONETOUCH ULTRA 2) w/Device KITIndications:Type 2 diabetes mellitus with hemoglobin A1c goal of less than 8.0% ([facility]) Use twice daily 1 Kit 0 04/13/20 19 Active Insulin Pen Needle 32G X 8 MM MISCIndications:Type 2 diabetes mellitus with hemoglobin A1c goal of less than 8.0% ([facility]) Use as directed 2 times [...] A1c goal of less than 8.0% ([facility]) Use as directed 4 times per day 400 Each 10/18/19 23 Active Levemir FlexTouch 100 UNIT/ML Subcutaneous Solution Pen-injector (Insulin Detemir)Indications:Type 2 diabetes mellitus with hyperglycemia, with long-term current use of insulin ([facility]) Inject 40 units subcutaneously before [...] AND 1 TABLET BEFORE BEDTIME 60 Tablet 20 23 Active BD Pen Needle Mini U/F 31G X 5 MM (Insulin Pen Needle) Use 4 times daily with insulin injections 100 Each 04/24/20 23 Active FLUoxetine HCl 40 MG Oral Capsule (PROzac)Indications:Estrellita e eating disorder Take 1 Capsule by mouth in the morning. 30 Capsule 04/24/20 23 Active amLODIPine Besylate 10 MG [...] 90 Tablet 0 10/08/20 23 Active Nystatin 445669 UNIT/GM External Powder (Nystop)Indications:Viki a cruris Apply topically to affected area 3 times a day. Apply to scrotum 60 g 2 10/30/19 24 Active Triamcinolone Acetonide 0.1 % External Cream (Aristocort) Apply topically to affected area 2 times a day. To affected area. vaseline after 453.6 g 5 10/30/19 24 Active Triamcinolone Acetonide 0.1 % External Cream (Aristocort) Apply topically to affected area 2 times a day. To affected area. vaseline after 453.6 g 5 01/17/20 23 024 Discontin ued(Refil l) documented as of this encounter (statuses as of 10/30/2023) Active Problems Problem Noted Date Diagnosed Date Chronic ankle pain 05/02/2023 Chronic pain of left knee 05/02/2023 Diabetic polyneuropathy asso ciated with diabetes mellitus due to underlying condition 10/17/2022 History of sepsis 12/06/2021 History of diabetic ketoacidosis 12/06/2021 Iron deficiency anemia due to chronic blood loss 12/06/2021 Elevated alkaline phosphatase measurement 2021 Rotator cuff syndrome of right shoulder 03/18/20 21 Psoriasis 12/28/2020 Major depressive disorder, recurrent [...] as of this encounter (statuses as of 10/30/2023) Resolved Problems Problem Noted Date Diagnosed Date [...] as of this encounter (statuses as of 10/30/2023) Immunizations Name Administration Dates Next Due COVID-19 mRNA, LNP-s, No Pre serve, 2-Dose Series (Pfizer) 06/07/2021,12/26/2020 H1N1 2009 Influenza, IM 09/01/2009 Hepatitis B, 20+ yrs 05/31/2014,12/10/2013,11/08 Pneumococcal Conjugate Vacci ne, 20-valent ([id number]) 03/07/2022 Pneumococcal Polysaccharide PPV23 (Pneumovax) 04/29/2008 Seasonal [...] oz pur e alcohol) comunion wine at [facility] PHQ-2 Answer Date Recorded PHQ-2 Score -1 [...] Sign Reading Time Taken Comments Blood Pressure 136/86 10/30/2023 6:22 PM EST Pulse 87 10/30/2023 6:22 PM EST Temperature 36.2 C (97.2 F) 10/30/2023 6:22 PM ES T Respiratory Rate 18 10/30/2023 6:22 PM EST Oxygen Saturation 98% 10/30/2023 6:22 PM EST Inhaled Oxygen Concentration - - Weight 115.2 kg (254 lb) 10/30/2023 6:22 PM EST Height 165.1 cm (5' 5") 10/30/2023 6:22 PM EST Body Mass Index 42.27 10/30/2023 6:22 PM EST documented in this encounter Progress Notes * Corry Valdovinos PA-C - 10/30/2023 6:38 PM EST Images from the original note were not included. History of Present Illness Ten Corbin is a 58 year old male that presents for Visual Disturbance (Right eye) Patient is a 58 year old male who presents with issues related to illness which started 2 weeks prior to geronimo. He noted diarrhea, decreased appetite, fatigued. No nausea. Went to urgent care Chemo. They could find nothing wrong and suggested severe seasonal depression. Has gradually gotten better. Notes change in vision. Sees flashing lights and floaters. Persistent itching and rash in scrotum. Denies chest pain, shortness O breath, cough, palpitations, nausea, vomiting, diarrhea. Physical Exam Vitals: 10/30/23 1822 Temp: 36.2 C (97.2 F) Pulse: 87 Resp: 18 SpO2: 98% BP: 136/86 BMI: 42.27 BP Readings from Last 3 Encounters: 10/30/23 136/86 10/10/23 130/90 10/03/23 142/80 Wt Readings from Last 3 Encounters: 10/30/23 115.2 kg (254 lb) 10/10/23 115.4 kg (254 lb 6.4 oz) 04/24/23 124.9 kg (275 lb 6.4 oz) General: alert, healthy, no distress, well nourished, well developed, and cooperative Head: Normocephalic, No masses, lesions, tenderness or abnormalities Eye Exam: PERRLA, extraocular movements intact, conjunctiva are pink and non- injected, sclera clear Neck: supple, no adenopathy, no bruits, thyroid normal size, non-tender, without nodularity Heart: regular rate & rhythm, no murmur, and no gallops Lungs: chest symmetric with normal AP diameter, no chest deformities noted, normal respiratory rateand rhythm, diaphragmatic excursion normal I have reviewed the following results: Hemoglobin A1C Assessment and Plan Visual changes (Primary) - ADULT/PEDS OPHTHALMOLOGY/OPTOMETRY REFERRAL OP Tinea cruris - Nystatin 061546 UNIT/GM External Powder (Nystop); Apply topically to affected area 3 times a day.Apply to scrotum Type 2 diabetes mellitus with hemoglobin A1c goal of less than 8.0% (HCC) - HEMOGLOBIN A1C; Future; Expected date: 10/30/2023 - COMPREHENSIVE METABOLIC PANEL; Future; Expected date: 10/30/2023 HTN, goal below 140/90 - COMPREHENSIVE METABOLIC PANEL; Future; Expected date: 10/30/2023 DYSLIPIDEMIA, GOAL LDL BELOW 100 - LIPID PANEL WITH DIRECT LDL IF TG IS HIGH; Future; Expected date: 10/30/2023 - COMPREHENSIVE METABOLIC PANEL; Future; Expected date: 10/30/2023 Acquired hypothyroidism - TSH WITH FREE T4 IF INDICATED; Future; Expected date: 10/30/2023 Current moderate episode of major depressive disorder, unspecified whether recurrent (HCC) - ADULT/PEDS PSYCHOLOGY REFERRAL OP Major depressive disorder, recurrent episode, moderate (HCC) Other orders - Triamcinolone Acetonide 0.1 % External Cream (Aristocort); Apply topically to affected area 2 times a day. To affected area. vaseline after Follow Up: Return in about 1 month (around 11/30/2023) for Clinic Visit/with pcp. | For: Clinic Visit/with pcp | Check-out note: Schedule opth Continue current medications. Patient desires to decrease medications recommend he try cutting downamlodipine to half a pill a day and monitor blood pressure. Told him he may hold his famotidine. Hewas also interested in other medications for erectile dysfunction. Wrap-Up Time: I spent a total of 30-39 minutes (exact time 39 mins) on the date of service in preparation, delivery, and documentation of the care provided to Ten Corbin excluding any time spent in the performance of separately billed services. documented in this encounter Nursing Notes * Julia Ortiz LPN - 10/30/2023 6:21 PM EST Patient states he got pretty sick in September and hasn't taken his meds since that time. He's also noticed visual changes since that time, only in the right eye. Reports thinks like floaters, flashesof light occasionally. Says at night things seem a lot darker in the right eye vs the left except headlights- they seem brighter. Has not seen his eye doctor for this problem. He also reports recurring issue with yeast infections in his groin area- wants to know if there's anything that can be done for it. documented in this encounter Plan of Treatment Upcoming Encounters Date Type Department Care Team (Late st Contact Info) Description 11/06/2023 11:00 AM EST Laboratory Laboratory [facility] [address] [place] [address] [place], [facility] [address] [facility] [place] [address] 12/04/2023 1:00 PM EST Office Visit Family Practice [facility] [place] [address] [facility] [place] [address] Natalie Collazo MD [address] [place] [address] Scheduled Orders Name Type Priority Associated Diagnoses Orde r Schedule HEMOGLOBIN A1C Lab Routine Type 2 diabetes mellitus with hemoglobin A1c goal of less than 8.0% (HCC) Expected: 10/30/2023 (Approximate), Expires: 10/29/2024 LIPID PANEL WITH DIRECT LDL IF TG IS HIGH Lab Routine DYSLIPIDEMIA, GOAL LDL BELOW 100 Expected: 10/30/2023, Expires: 10/30/2024 COMPREHENSIVE METABOLIC PANEL Lab Routine Type 2 diabetes mellitus with hemoglobin A1c goal of less than 8.0% (HCC) HTN, goal below 140/90 DYSLIPIDEMIA, GOAL LDL BELOW 100 Expected: 10/30/2023 (Approximate), Expires: 10/29/2024 TSH WITH FREE T4 IF INDICATED Lab Routine Acquired hypothyroidism Expected: 10/30/2023 (Approximate), Expires: 10/29/2024 Scheduled Referrals Name Type Priority Associated Diagnoses Orde r Schedule ADULT/PEDS OPHTHALMOLOGY/OPTOME TRY REFERRAL OP Referral Within 3 days (urgent) Visual changes Ordered: 10/30/2023 ADULT/PEDS PSYCHOLOGY REFERRAL OP Referral Within 30 days (routine) Current moderate episode of major depressive disorder, unspecified whether recurrent (HCC) Ordered: 10/30/2023 Health Maintenance Due Date Last Done Comments Hepatitis C Screening 1985 Cologuard 2012 Fecal Occult Blood Test 2012 Sigmoidoscopy 2012 Albumin/Creatinine Ratio 06/02/2021 020, 06/19/2018, 07/11/2017, Additional history exists Depression Screening 08/25/2021 08/25/2020 HbA1c 05/21/2023 11/21/2022, 0103/2023, 03/07/2022, Additional history exists COVID-19 Vaccine ( season) [...] as of this encounter Visit Diagnoses Diagnosis Visual changes- Primary Unspecified visual disturbance Tinea cruris Dermatophytosis of groin and perianal area Type 2 diabetes mellitus with hemoglobin A1c goal of less than 8.0% (HCC) HTN, goal below 140/90 Unspecified essential hypertension DYSLIPIDEMIA, GOAL LDL BELOW 100 Other and unspecified hyperlipidemia Acquired hypothyroidism Unspecified hypothyroidism Current moderate episode of major depressive disorder, unspecified whether recurrent (HCC) Major depressive disorder, recurrent episode, moderate (HCC) Major depressive disorder, recurrent episode, moderate documented in this encounter Care Teams Hydration Plant Operator Relationship Specialty Start Date End Date Jennifer Jimenez DO [address] [place] [address] PCP - General Family Medicine 09/17/18 documented as of this encounter
--- OUTSIDE RECORDS SUMMARY | 2024-03-07 13:22 | External Medical Summary | Summary of Care ---
Author Name Unknown Organization [facility] Address [address] [place] [address] Phone [phone] Care Team Providers Care Dry End Tester Name Role Phone Jennifer Jimenez DO Primary Care Provider Reason for Visit * Reason Onset Date Comments Follow Up 11/18/2023 Encounter Details Date Type Department Care Team (Late st Contact Info) Description 11/18/2023 Telephone Urology, [facility] [address] [place] [address] Chandra Muñoz MD [address] [place] [address] Follow Up Allergies Active Allergy Reactions Criticality Noted Date Comments Doxycycline Hives 08/01/2012 Macrolides And Ketolides 07/15/2000 unknown Morphine And Related 06/11/2008 GI upset Penicillins 08/29/1999 1969 anaphylaxis documented as of this encounter (statuses as of 11/18/2023) Medications Medication Sig Dispensed Refills Start Date End Date Status Blood Glucose Monitoring Suppl (ONETOUCH ULTRA SYSTEM) w/Device KITIndications:Type 2 diabetes mellitus with hemoglobin A1c goal of less than 8.0% ([facility]) Use as directed 4 times a day [...] than 8.0% ([facility]) Use as directed 2 times a day. [...] than 8.0% ([facility]) Use as directed 4 times per day [...] MORNING 90 Tablet 0 3 Active Nystatin 820581 UNIT/GM External Powder (Nystop)Indications:Viki a cruris Apply [...] of insulin ([facility]) Inject 40 Units under the skin at bedtime. TITRATING DOSE EVERY 2 WEEKS UNTIL BG LESS THAN 180 (Levemir not being made anymore) 45 mL 3 4 Active documented as of this encounter (statuses as of 11/18/2023) Active Problems Problem Noted Date Diagnosed Date [...] as of this encounter (statuses as of 11/18/2023) Resolved Problems Problem Noted Date Diagnosed Date [...] as of this encounter (statuses as of 11/18/2023) Immunizations Name Administration Dates Next Due COVID-19 mRNA, LNP-s, No Pre serve, 2-Dose Series (Pfizer) 06/07/2021,12/26/2020 H1N1 2009 Influenza, IM 09/01/2009 Hepatitis B, 20+ yrs 05/31/2014,12/10/2013,11/08 Pneumococcal Conjugate Vacci ne, 20-valent ([id number]) 03/07/2022 Pneumococcal Polysaccharide PPV23 (Pneumovax) 04/29/2008 Seasonal [...] oz pur e alcohol) comunion wine at [facility] PHQ-2 Answer Date Recorded PHQ-2 Score [...] Contact Info) Description 11/28/2023 9:[address] [facility] [place], [place] [address] [facility] [place] [address] Clotilde Alexander LCSW [address] [facility] [place] [address] 12/04/2023 1:00 PM EST Office Visit Family Practice [address] [place] [address] [facility] [place] [address] Natalie Collazo MD 200 [facility] [place] [address] 12/09/2023 8:45 AM EST Office Visit Ophthalmology, [place] [address] [place] [address] Emre Moseley MD [address] [place] [address] Health Maintenance Due Date Last Done Comments [...] filedocumented as of this encounter Care Teams Dry End Tester Relationship Specialty Start Date End Date Jennifer Jimenez DO [facility] [address] PCP - General Family Medicine 09/17/18 documented as of this encounter
--- OUTSIDE RECORDS SUMMARY | 2024-03-07 13:22 | External Medical Summary ---
Author Name Unknown Address Unknown Organization K01:[facility] [place] [place] [address] [place] [address] Laboratory Report Ordering Provider Test Date Status STAS CARBONE 11/06/2023 11:16:17 Final Observation Date Value Abnormality Reference (Units ) Status Triglyceride 11/06/2023 11:16:17 182 Above high normal <=174 (mg/dL) Final Triglyceride Reference Range s (mg/dL):
<150 Acceptable
150-174 Borderline high
175-499 High
>=500 Very high Cholesterol 11/06/2023 11:16:17 187 <200 (mg /dL) Final Total Cholesterol Reference Ranges (mg/dL):
<200 Desirable
200-239 Borderline high
>=240 High HDL 11/06/2023 11:16:17 44 >39 (mg/dL ) Final HDL Cholesterol Reference Ra nges (mg/dL):
>=60 High (Desirable)
<50 Low (Undesirable) For Females
<40 Low (Undesirable) For Males NON-HDL CHOLESTEROL 11/06/2023 11:16:17 143 <=159 (mg/dL) Final Non-HDL Cholesterol Referenc e Range (mg/dL):
<100 Target level for high risk ASCVD patient
<130 Optimal for general population
130-159 Near optimal for general population
160-189 Borderline High
190-219 High
>=220 Very High LDL, (calculated) 11/06/2023 11:16:17 107 <= 129 (mg/dL) Final LDL Cholesterol Reference Ra nges (mg/dL):
<70 Target level for high risk ASCVD patient
<100 Optimal for general population
100-129 Near optimal for general population
130-159 Borderline high
160-189 High
>=190 Very high Performing Location [facility] [place] [address] [facility] [address]
--- OUTSIDE RECORDS SUMMARY | 2024-03-07 13:22 | External Medical Summary | Summary of Care ---
Author Name Unknown Organization [facility] Address [address] [place] [address] Phone [phone] Care Team Providers Care Rn Pediatric Icu Name Role Phone Katheryn Jimenez DO Primary Care Provider Reason for Visit * Reason Onset Date Comments eRx-Medication Refill Medication Question 11/07/2023 Encounter Details Date Type Department Care Team (Late st Contact Info) Description 11/07/2023 Refill Pharmacy, [facility] [address] [facility] [place] [address] Katheryn Jimenez DO [address] [place] [address] HTN, goal below 140/90*; Type 2 diabetes mellitus with hyperglycemia, with long-term current use of insulin ([facility]) Allergies Active Allergy Reactions Criticality Noted Date [...] mouth in the morning. 30 Capsule 5 07/13/2 023 Active amLODIPine Besylate 10 MG Oral [...] MORNING 90 Tablet 0 023 Active Nystatin 692615 UNIT/GM External Powder (Nystop)Indications:Tin ea cruris Apply [...] [facility]) Inject 40 units subcutaneously before bedtime. Titrating [...] mRNA, LNP-s, No Pre serve, 2-Dose Series (Pin or Peg) 06/07/2021,12/26/2020 H1N1 2009 Influenza, IM 09/01/2009 Hepatitis B, 20+ yrs 05/31/2014,12/10/2013,11/08 Influenza, Whole Virus 07/13/1999 Pneumococcal Conjugate Vacci ne, 20-valent ([id number]) 03/07/2022 Pneumococcal Polysaccharide PPV23 (Pneumovax) 04/29/2008 Seasonal [...] alcohol) [facility] wine at [facility] PHQ-2 Answer Date Recorded PHQ-2 Score -1 [...] encounter Miscellaneous Notes * Telephone Encounter - Osiris Dunne CPhT - 11/07/2023 9:19 AM EST Pharmacy is calling because pt's prescription for Insulin Glargine Solostar 100 UNIT/ML Subcutaneous Solution Pen-injector (Lantus SoloStar) was sent with unclear directions stating "Inject 40 Units under the skin at bedtime. TITRATING DOSE EVERY 2 WEEKS UNTIL BG LESS THAN 180 ". Please clarify thedirections for this medication and send a new prescription to [facility] [address] [place] [address] needing to know the max daily dose to bill insurance Thank you, Osiris Dunne CPhT II Rad Tech [facility] ([facility] (Formerly [facility]) 11/07/2023, 9:19 AM * Telephone Encounter - Luz Maria Hernandez [facility] - 11/07/2023 7:40 AM ESTSigned Prescriptions: Disp [...] LESS THAN 180Refused By: LUZ MARIA LOGAN VRphilip for Refusal: Other (comment below) * Telephone Encounter - Luz Maria Hernandez RPh - 11/07/2023 7:34 AM EST Did you pend patient's preferred pharmacy and medication before forwarding?no Pharmacy: [facility] [id number] Pending Prescriptions: Disp Refills Levemir FlexPen [...] 7.5 (H) 12/05/2017 02:37 PM Luz Maria Logan RPh, CACP, CDE Clinical Pharmacist [facility] 11/07/2023, 7:34 AM documented in this encounter Plan of Treatment Upcoming Encounters Date Type Department Care Team (Late st Contact Info) Description 11/28/2023 9:30 AM EST Telemedicine [facility] [address] [place] [address] Clotilde Alexander [facility] [address] [place] [address] 12/04/2023 1:00 PM EST Office Visit Family Practice [facility] [place] [address] [place] [address] Natalie Collazo MD [address] [facility] [place] [address] Health Maintenance Due Date Last Done Comments Hepatitis C Screening 1985 Cologuard 2012 Fecal Occult Blood Test 2012 Sigmoidoscopy 2012 Albumin/Creatinine Ratio 06/02/2021 020, 06/19/2018, 07/11/2017, Additional history exists Depression Screening 08/25/2021 08/25/2020 COVID-19 Vaccine (3 - season) 2023 06/07/2021, 12/26/2020 Influenza Vaccine (FLU [...] (HCC) documented in this encounter Care Teams Rn Pediatric Icu Relationship Specialty Start Date End Date Katheryn Jimenez DO [address] [place] [address] PCP - General Family Medicine 09/17/18 documented as of this encounter
--- OUTSIDE RECORDS SUMMARY | 2024-03-07 13:22 | External Medical Summary ---
Author Name Unknown Address Unknown Organization K09:[facility] [address] [place] [address] Laboratory Report Ordering Provider Test Date Status ARLYN JAVIER 11/06/2023 11:16:17 Final Observation Date Value Abnormality Reference (Units ) Status Heterophile Ab [Presence] in Blood by Immunoassay 11/06/2023 11:16:17 Negative Negative Final Performing Location [facility] [address] [address]
--- OUTSIDE RECORDS SUMMARY | 2024-03-07 13:22 | External Medical Summary ---
Author Name Unknown Address Unknown Organization K01:[facility] [place] [address] [place] [address] Laboratory Report Ordering Provider Test Date Status TORI FARRELL 11/29/2023 13:31:15 Final Observation Date Value Abnormality Reference (Units ) Status Uric Acid 11/29/2023 13:31:15 4.3 3.4-7.0 (m g/dL) Final Performing Location [facility] - [address] [place] [address]
--- OUTSIDE RECORDS SUMMARY | 2024-03-07 13:22 | External Medical Summary ---
Author Name Unknown Address Unknown Organization [id number]:LABORATORY [facility] [place] - [address] [place] [address] [address] Laboratory Report Ordering Provider Test Date Status ARLYN JAVIER 11/06/2023 11:16:17 Final Observation Date Value Abnormality Reference (Units ) Status Borrelia burgdorferi IgG and IgM [Interpretation] in Serum by Immunoassay 11/06/2023 11:16:17 Negative Negative Final Performing Location LABORATORY [facility] [place] - [address] [place] [address]
--- OUTSIDE RECORDS SUMMARY | 2024-03-07 13:22 | External Medical Summary ---
Author Name Unknown Address Unknown Organization [id number]:LABORATORY [facility] - [address] [place] [id number] Laboratory Report Ordering Provider Test Date Status TORI FARRELL 11/29/2023 13:31:15 Final Observation Date Value Abnormality Reference (Units ) Status BUN 11/29/2023 13:31:15 12 6-20 (mg/dL) Final Creatinine 11/29/2023 13:31:15 1.0 0.6-1.2 (mg/dL) Final Glomerular filtration rate/1.73 sq M.predicted [Volume Rate/Area] in Serum, Plasma or Blood by Creatinine-based formula (CKD-EPI) 11/29/2023 13:31:15 86 >=60 (mL/min) Final eGFR is calculated based on the CKD-EPI 2020 equation SODIUM 11/29/2023 13:31:15 135 135-146 (m mol/L) Final Potassium 11/29/2023 13:31:15 4.8 3.5-5.1 (m mol/L) Final Cl 11/29/2023 13:31:15 96 Below low normal 98- 107 (mmol/L) Final CO2 11/29/2023 13:31:15 26 22-32 (mmo l/L) Final Anion gap 11/29/2023 13:31:15 13 7-15 (mmol /L) Final Glucose 11/29/2023 13:31:15 248 Above high normal 70 -120 (mg/dL) Final Calcium 11/29/2023 13:31:15 9.8 8.4-10.2 ( mg/dL) Final Performing Location LAB[facility]ATORY [facility] [place] [id number]
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
--- OUTSIDE RECORDS SUMMARY | 2024-03-07 13:23 | External Medical Summary | Summary of Care ---
Author Name Unknown Organization [facility] Address [address] [facility] [place] [address] Phone [phone] Care Team Providers Care Airworthiness Inspector Name Role Phone Jennifer Jimenez Primary Care Provider Reason for Referral * Evaluate & Treat - Unlimited Visits (Within 10 days (routine)) - Pending Review Specialty Diagnoses / Procedures Referred By Poonam mccray Referred To Contact Family Medicine Diagnoses Major depressive disorder with current active episode, unspecified depression episode severity, unspecified whether recurrent Chandra Braun PA-C [address] [place] [address] Referral ID Status Reason Start Date Expiration Date Visits Requested Visits Authorized [id number] Pending Review Specialty Services Required [phone] Question Answer Referral Priority Within 10 days (routine) Where should this appointment be scheduled? [facility] Reason for Visit * Reason Comments Lethargy Encounter Details Date Type Department Care Team (Latest Contact Info) Description 10/10/2023 2:40 PM EST Convenient Care Visit [facility] [address] [place] [address] Chandra Braun PA-C [address] [address] Fatigue, unspecified type*; Acute URI; Jock itch; Diarrhea, unspecified type; Major depressive disorder with current active episode, unspecified depression episode severity, unspecified whether recurrent; LUQ abdominal pain Allergies Active Allergy Reactions Criticality Noted Date Comments Doxycycline Hives 08/01/2012 Macrolides And Ketolides 07/15/2000 unknown Morphine And Related 06/11/2008 GI upset Penicillins 08/29/1999 1969 anaphylaxis documented as of this encounter (statuses as of 10/10/2023) Medications Medication Sig Dispensed Refills Start Date End Date Status Blood Glucose Monitoring Suppl (TaDaweb ULTRA SYSTEM) w/Device KITIndications:Type 2 diabetes mellitus with hemoglobin A1c goal of less than 8.0% (HCC) Use as directed 4 times a day as needed for Hyperglycemia (high sugar). Use up to four times a day as directed 1 Kit 0 018 Active Blood Glucose Monitoring Suppl (TaDaweb ULTRA 2) w/Device KITIndications:Type 2 diabetes mellitus [...] 2 daily with breakfast 60 Tablet 11 022 Active OneTouch Delica Lancets 33GIndications:Type 2 diabetes mellitus with hemoglobin A1c goal of less than 8.0% (HCC) Use as directed 4 times per day 400 Each 3 023 Active Levemir FlexTouch 100 UNIT/ML Subcutaneous Solution Pen-injector (Insulin Detemir)Indications:Typ e 2 diabetes mellitus with hyperglycemia, with long-term current use of insulin (HCC) Inject 40 units subcutaneously before bedtime. Titrating dose every 2 weeks until BG <180 15 mL 023 Active Levothyroxine Sodium 175 MCG Oral Tablet (Levoxyl)Indications:Ac quired hypothyroidism TAKE ONE TABLET BY MOUTH EVERY MORNING AT LEAST 30 MINUTES PRIOR TO BREAKFAST OR OTHER MEDICATIONS 90 Tablet 023 Active Aspirin Low Dose 81 MG Oral Tablet Delayed Release (aspirin enteric coated)Indications:Cere brovascular disease, arteriosclerotic, post-stroke TAKE TWO TABLETS BY MOUTH EVERY MORNING 180 Tablet 023 Active Triamcinolone Acetonide 0.1 % External Cream (Aristocort) Apply topically to affected area 2 times a day. To affected area. vaseline after 453.6 g 023 Active Famotidine 20 MG Oral Tablet [...] EVERY MORNING 90 Tablet 1 023 Active Lisinopril 20 MG Oral Tablet (Prinivil) TAKE ONE TABLET BY MOUTH EVERY MORNING 30 Tablet 2 023 Active Rosuvastatin Calcium 20 MG Oral Tablet (Crestor)Indications:Pu re hypercholesterolemia TAKE ONE TABLET BY MOUTH EVERY MORNING 90 Tablet 0 023 Active Clotrimazole 1 % External Cream (Lotrimin)Indications:J ock itch Apply topically to affected area 2 times a day for 14 days. 30 g 1 023 2023 Active Clotrimazole 1 % External Cream (Lotrimin) Apply topically to affected area 2 times a day . Apply to head of penis 30 g 2 022 2022 Discontinued documented as of this encounter (statuses as of 10/10/2023) Active Problems Problem Noted Date Diagnosed Date [...] as of this encounter (statuses as of 10/10/2023) Resolved Problems Problem Noted Date Diagnosed Date [...] as of this encounter (statuses as of 10/10/2023) Immunizations Name Administration Dates Next Due COVID-19 mRNA, LNP-s, No Pre serve, 2-Dose Series (Agin[employer]) 06/07/2021,12/26/2020 H1N1 2009 Influenza, IM 09/01/2009 Hepatitis B, 20+ yrs 05/31/2014,12/10/2013,11/08 Influenza, Whole Virus 07/13/1999 Pneumococcal Conjugate Vacci ne, 20-valent ([id number]) 03/07/2022 Pneumococcal Polysaccharide PPV23 (Pneumovax) 04/29/2008 Seasonal [...] oz pur e alcohol) comunion wine at uats[employer] PHQ-2 Answer Date Recorded PHQ-2 Score -1 [...] Sign Reading Time Taken Comments Blood Pressure 130/90 10/10/2023 4:06 PM EST Pulse 74 10/10/2023 4:06 PM EST Temperature 36.4 C (97.5 F) 10/10/2023 4:06 PM ES T Respiratory Rate 16 10/10/2023 4:06 PM EST Oxygen Saturation 98% 10/10/2023 4:06 PM EST Inhaled Oxygen Concentration - - Weight 115.4 kg (254 lb 6.4 oz) 10/10/2023 4:06 PM EST Height - - Body Mass Index 42.33 06/21/2022 10:29 AM EDT documented in this encounter Patient Instructions * Patient Instructions* Chandra Braun PA-C - 10/10/2023 4:36 PM EST Labs and chest Xray at [facility] tomorrow morning. Clotrimazole twice a day for up to two weeks on itchy parts of genitals. Ultrasound of Left upper quadrant of abdomen. Please call [phone] to schedule your study If you cannot get through on this line, you may call . Increase your intake of clear, non-sugary fluids while you continue to have symptoms. Consider adding electrolyte drinks such as Pedialyte, coconut water, or sports drinks. Give yourself some bowel rest, and do a bland diet over the next several days, gradually adding foods back in as tolerated. Yogurt and probiotic supplements (especially lactobacillus), may help as well. Avoid high-fat or fried foods while you have symptoms, as these may further upset your GI tract. Anti-diarrhea medications: - in general, we recommend to avoid these and let the body rid itself of an toxins. - If you need to use these, however, imodium (or similar) can be used as long as you do not have a fever and stools are not bloody. - PeptoBismol is another medication that can provide relief from diarrhea, but also helps with upset stomach as well. (Note: PeptoBismol may turn your stools very dark in color). Follow-up with PCP in 3-5 days or return if no improvement or sooner if worsens or if you develop bloody stools. ED if acutely worsen, or if develop shortness of breath, chest pain, palpitations, fever --> go to ER. documented in this encounter Progress Notes * Chandra Braun PA-C - 10/10/2023 4:18 PM EST Nursing Notes: Sabra To LPN 10/10/23 1611 Signed States past week he has not taken any meds/eaten only 1 meal daily. Has been extremely tired/lethargic. To ER x 1 Subjective Ten Corbin is a 58 year old male that presents for Lethargy With a PMH of Dm2, severe CHARLEEN on CPAP, DLD, hypothyroidism, post-stroke dx, HTN, iron deficiency anemia, CHF. He was here on 10/03 for lightheadedness and URI symptoms x 2 days. At that time, he had labs ordered (CBC, CMP, TSH, Hemoglobin A1C), none of which he got done. He also had a quad screen that was negative for covid, flu, and RSV. His POC glucose test was 115. Of note, he had not been taking his DM meds (metformin). After leaving here, instead of having his labwork done, he went to the ER, where a CXR was performed and was clear. He was treated with symptomatic management and referred to PCP for follow-up. He is here today due to continued fatigue, lethargy, malaise. Denies fever, Cold symptoms are still present but improving. He denies dysuria, frequency, urgency. He is still having 1-2 episodes of watery diarrhea per day. Reports floaters in R eye Denies cp, palp, n/v, sob, wheezing. He is eating one meal a day. He also reports itchy scrotum and has a h/o jock itch. Denies confusion, gait changes, amnesia. He does note that he is depressed, ever since his in 2019, w/o SI/HI Objective BP 130/90 | Pulse 74 | Temp 36.4 C (97.5 F) (Tympanic) | Resp 16 | Wt 115.4 kg (254 lb 6.4 oz) | SpO2 98% | BMI 42.33 kg/m | BSA 2.3 m Body mass index is 42.33 kg/m. BP Readings from Last 3 Encounters: 10/10/23 130/90 10/03/23 142/80 04/24/23 138/86 Wt Readings from Last 3 Encounters: 10/10/23 115.4 kg (254 lb 6.4 oz) 04/24/23 124.9 kg (275 lb 6.4 oz) 01/16/23 93 kg (205 lb) Physical Exam Vitals and nursing note reviewed. Constitutional: General: He is not in acute distress. Appearance: Normal appearance. He is not ill-appearing, toxic-appearing or diaphoretic. HENT: Head: Normocephalic and atraumatic. Right Ear: External ear normal. Left Ear: External ear normal. Nose: Nose normal. No congestion or rhinorrhea. Mouth/Throat: Mouth: Mucous membranes are moist. Pharynx: Oropharynx is clear. No oropharyngeal exudate or posterior oropharyngeal erythema. Eyes: General: No scleral icterus. Extraocular Movements: Extraocular movements intact. Conjunctiva/sclera: Conjunctivae normal. Pupils: Pupils are equal, round, and reactive to light. Neck: Vascular: No carotid bruit. Cardiovascular: Rate and Rhythm: Normal rate and regular rhythm. Heart sounds: No murmur heard. No friction rub. No gallop. Pulmonary: Effort: Pulmonary effort is normal. No respiratory distress. Breath sounds: No wheezing, rhonchi or rales. Chest: Chest wall: No tenderness. Abdominal: General: Abdomen is flat. Bowel sounds are normal. There is no distension. Palpations: Abdomen is soft. Tenderness: There is no abdominal tenderness. There is no guarding or rebound. Genitourinary: Comments: Dry skin on scrotum, without erythema, edema, drainage. Musculoskeletal: General: No swelling or tenderness. Normal range of motion. Cervical back: Normal range of motion and neck supple. No rigidity. No muscular tenderness. Right lower leg: No edema. Left lower leg: No edema. Lymphadenopathy: Cervical: No cervical adenopathy. Skin: General: Skin is warm and dry. Capillary Refill: Capillary refill takes less than 2 seconds. Neurological: General: No focal deficit present. Mental Status: He is alert and oriented to person, place, and time. Psychiatric: Mood and Affect: Mood normal. Behavior: Behavior normal. Thought Content: Thought content normal. Judgment: Judgment normal. Assessment and plan 1. Fatigue, unspecified type Multifactorial, 2/2 habitus, depression, URI, mild dehydration, etc. Did not get labs done from last time. Will evaluate blood count, metabolic panel, tick borne, CHF, blood sugar, etc. - BNP, NT-PRO; Future - LYME DISEASE ANTIBODY SCREEN WITH REFLEX TO CONFIRMATION; Future - ANAPLASMA PHAGOCYTOPHILUM DNA, QL REAL-TIME PCR; Future - MONONUCLEOSIS HETEROPHILE ANTIBODY; Future - XR CHEST 2 VIEWS; Future - CULTURE, URINE, QUANTITATIVE - URINALYSIS, POINT OF CARE (ENTER/EDIT) - MONO TEST, POINT OF CARE (ENTER/EDIT) 2. Acute URI Improving/resolving - BNP, NT-PRO; Future - LYME DISEASE ANTIBODY SCREEN WITH REFLEX TO CONFIRMATION; Future - ANAPLASMA PHAGOCYTOPHILUM DNA, QL REAL-TIME PCR; Future - MONONUCLEOSIS HETEROPHILE ANTIBODY; Future - XR CHEST 2 VIEWS; Future - CULTURE, URINE, QUANTITATIVE - URINALYSIS, POINT OF CARE (ENTER/EDIT) - MONO TEST, POINT OF CARE (ENTER/EDIT) 3. Jock itch - Clotrimazole 1 % External Cream (Lotrimin); Apply topically to affected area 2 times a day for 14days. Dispense: 30 g; Refill: 1 4. Diarrhea, unspecified type - GASTROINTESTINAL PATHOGEN PANEL, STOOL; Future - CLOSTRIDIUM DIFFICILE, PCR; Future 5. Major depressive disorder with current active episode, unspecified depression episode severity, unspecified whether recurrent - FAMILY PRACTICE REFERRAL OP 6. LUQ abdominal pain Will evaluate the - LIPASE; Future - US ABDOMEN LIMITED; Future Follow up With PCP next week ER if acutely worsens Eye doctor next week Total time today including reviewing chart before the visit, pertinent labs, imaging reports, face to face time, and documentation time was 50 minutes. The above was discussed and understanding was expressed. Chandra Braun PA-C documented in this encounter Nursing Notes * Sabra To LPN - 10/10/2023 4:08 PM EST States past week he has not taken any meds/eaten only 1 meal daily. Has been extremely tired/lethargic. To ER x 1 documented in this encounter Plan of Treatment Pending Results Name Type Priority Associated Diagnoses Date /Time CULTURE, URINE, QUANTITATIVE Lab STAT Fatigue, unspecified type Acute URI 10/10/2023 6:09 PM EST Scheduled Orders Name Type Priority Associated Diagnoses Order Schedule BNP, NT-PRO Lab STAT Fatigue, unspecified type Acute URI Expected: 10/10/2023, Expires: 11/10/2023 LYME DISEASE ANTIBODY SCREEN WITH REFLEX TO CONFIRMATION Lab STAT Fatigue, unspecified type Acute URI Expected: 10/10/2023, Expires: 11/10/2023 ANAPLASMA PHAGOCYTOPHILUM DNA, QL REAL-TIME PCR Lab STAT Fatigue, unspecified type Acute URI Expected: 10/10/2023, Expires: 11/10/2023 MONONUCLEOSIS HETEROPHILE ANTIBODY Lab STAT Fatigue, unspecified type Acute URI Expected: 10/10/2023, Expires: 11/10/2023 XR CHEST 2 VIEWS Medical Imaging STAT Fatigue, unspecified type Acute URI Expected: 10/10/2023, Expires: 11/10/2023 GASTROINTESTINAL PATHOGEN PANEL, STOOL Lab Routine Diarrhea, unspecified type Expected: 10/10/2023, Expires: 11/10/2023 CLOSTRIDIUM DIFFICILE, PCR Lab STAT Diarrhea, unspecified type Expected: 10/10/2023, Expires: 11/10/2023 LIPASE Lab STAT LUQ abdominal pain Expected: 10/10/2023, Expires: 11/10/2023 US ABDOMEN LIMITED Medical Imaging STAT LUQ abdominal pain Expected: 10/10/2023, Expires: 11/10/2023 Scheduled Referrals Name Type Priority Associated Diagnoses Orde r Schedule FAMILY PRACTICE REFERRAL OP Referral Within 10 days (routine) Major depressive disorder with current active episode, unspecified depression episode severity, unspecified whether recurrent Ordered: 10/10/2023 Health Maintenance Due Date Last Done Comments Hepatitis C Screening 1985 Cologuard 2012 Fecal Occult Blood Test 2012 Sigmoidoscopy 2012 Albumin/Creatinine Ratio 06/02/2021 020, 06/19/2018, 07/11/2017, Additional history exists Depression Screening 08/25/2021 08/25/2020 HbA1c 05/21/2023 11/21/2022, 03/2023, 03/07/2022, Additional history exists COVID-19 Vaccine ( [...] Procedure Name Priority Date/Time Associated Diagnosis Comments MONO TEST, POINT OF CARE (ENTER/EDIT) Routine 10/10/2023 Fatigue, unspecified type Acute URI URINALYSIS, POINT OF CARE (ENTER/EDIT) Routine 10/10/2023 Fatigue, unspecified type Acute URI documented in this encounter Results * MONO TEST, POINT OF CARE (ENTER/EDIT) (10/10/2023) Rapid Monospot Result Negative Negative Procedural Control Valid? Yes Lot Number [id number] Expiration Date 33,124 Blood 10/10/2023 Chandra Braun PA-C LAB POINT O F CARE TEST ENTER/EDIT ORDERABLES * (ABNORMAL) URINALYSIS, POINT OF CARE (ENTER/EDIT) (10/10/2023) Color, Urine [place] Yellow or Light Yellow Clarity, Urine Clear Clear Glucose, Urine Negative Negative mg/dL Bilirubin, Urine Moderate Negative Ketone, Urine Trace Negative mg/dL Specific [place], Urine 1.030 1.003 - 1.030 Blood, Urine Negative Negative pH, Urine 5.5 5.0 - 7.5 units Protein, Urine >=300 Negative mg/dL Urobilinogen, Urine 1.0 0.2 - 1.0 mg/dL Nitrite, Urine Negative Negative Esterase, Urine Negative Negative Urine 10/10/2023 Chandra Braun PA-C LAB POINT O F CARE TEST ENTER/EDIT ORDERABLES documented in this encounter Visit Diagnoses Diagnosis Fatigue, unspecified type- Primary Acute URI Acute upper respiratory infections of unspecified site Jock itch Dermatophytosis of groin and perianal area Diarrhea, unspecified type Major depressive disorder with current active episode, unspecified depression episode severity, unspecified whether recurrent LUQ abdominal pain Abdominal pain, left upper quadrant documented in this encounter Care Teams Airworthiness Inspector Relationship Specialty Start Date End Date Jennifer Jimenez DO [address] [place] [address] PCP - General Family Medicine 09/17/18 documented as of this encounter"
--- OUTSIDE RECORDS SUMMARY | 2024-03-07 13:23 | External Medical Summary ---
Author Name Unknown Address Unknown Organization [id number]:[facility] [place] [address] [facility] [address] Laboratory Report Ordering Provider Test Date Status ARLYN JAVIER 10/03/2023 17:41:40 Final Observation Date Value Abnormality Reference (Units ) Status SARS Coronavirus 2 10/03/2023 17:41:40 Negative N egative Final No SARS-CoV2 Coronavirus RNA detected by PCR (amplified probe).
This express test was developed and its performance characteristics determined by [facility]. It has not been cleared or approved by the U.S. Food and Drug Administration (FDA). FDA does not require this test to go thru premarket FDA review. This test is used for clinical purposes. It should not be regarded as investigational or for research. This laboratory is certified under the Clinical Laboratory Improvement Amendments (CLIA) as qualified to perform high complexity clinical laboratory testing.

This test is a nucleic acid amplification test (NAAT), a reverse transcriptase polymerase chain reaction (RT-PCR) test, or a Centers for Disease Control-acceptable equivalent. The test is performed in a high complexity Clinical Laboratory Improvement Amendments-(CLIA) certified laboratory. The test is acceptable for SARS-CoV-2 diagnosis, surveillance, and travel within the [place] and to most countries. Please check with local testing authorities about requirements before travel.

The validation of bronchial specimens, tracheal aspirates, and sputum for this assay was developed and performance characteristics determined by [facility]. The validation of alternate specimen types has not been cleared or approved by the U.S. Food and Drug Administration (FDA). It has been determined that such clearance is not necessary. Influenza virus A RNA [Prese nce] in Specimen by JONAS with probe detection 10/03/2023 17:41:40 Negative Negative Final No Influenza A RNA detected by PCR (amplified probe) Influenza virus B RNA [Prese nce] in Specimen by JONAS with probe detection 10/03/2023 17:41:40 Negative Negative Final No Influenza B RNA detected by PCR (amplified probe) Respiratory syncytial virus RNA [Identifier] in Specimen by JONAS with probe detection 10/03/2023 17:41:40 Negative Negative Final No Respiratory Syncytial Vir us RNA detected by PCR (amplified probe) Performing Location [facility]ATORY [place] [address] [facility] [address]
--- OUTSIDE RECORDS SUMMARY | 2024-03-07 13:23 | External Medical Summary | Summary of Care ---
Author Name Unknown Organization [facility] Address [address] [facility] [place] [address] Phone [phone] Care Team Providers Care Spinner Fixer Name Role Phone Jennifer Jimenez Primary Care Provider Reason for Referral * Evaluate & Treat - Unlimited Visits (Within 10 days (routine)) - Pending Review Specialty Diagnoses / Procedures Referred By Poonam mccray Referred To Contact Family Medicine Diagnoses Major depressive disorder with current active episode, unspecified depression episode severity, unspecified whether recurrent Chandra Braun PA-C [address] [address] Referral ID Status Reason Start Date Expiration Date Visits Requested Visits Authorized [id number] Pending Review Specialty Services Required [phone] Question Answer Referral Priority Within 10 days (routine) Where should this appointment be scheduled? [facility] Reason for Visit * Reason Comments Lethargy Encounter Details Date Type Department Care Team (Latest Contact Info) Description 10/10/2023 2:40 PM EST Convenient Care Visit [facility] [address] [place] [address] Chandra Braun PA-C [address] [address] Fatigue, unspecified type*; Acute URI; Jock itch; [...] End Date Status Blood Glucose Monitoring Suppl ([email or web address] ULTRA SYSTEM) w/Device KITIndications:Type 2 diabetes mellitus with hemoglobin A1c goal of less than 8.0% (HCC) Use as directed 4 times a day as needed for Hyperglycemia (high sugar). Use up to four times a day as directed 1 Kit 0 018 Active Blood Glucose Monitoring Suppl ([email or web address] ULTRA 2) w/Device KITIndications:Type 2 diabetes mellitus [...] mRNA, LNP-s, No Pre serve, 2-Dose Series ([employer]) 06/07/2021,12/26/2020 H1N1 2009 Influenza, IM 09/01/2009 Hepatitis B, 20+ yrs 05/31/2014,12/10/2013,11/08 Influenza, Whole Virus 07/13/1999 Pneumococcal Conjugate Vacci ne, 20-valent ([id number]) 03/07/2022 Pneumococcal Polysaccharide PPV23 (Pneumovax) 04/29/2008 Seasonal [...] oz pur e alcohol) comunion wine at hoahao[facility] PHQ-2 Answer Date Recorded PHQ-2 Score -1 [...] PM EST Labs and chest Xray at [facility] tomorrow morning. Clotrimazole twice a day for up to two weeks on itchy parts of genitals. Ultrasound of Left upper quadrant of abdomen. Please call [phone] to schedule your study If you cannot [...] documented in this encounter Plan of Treatment Scheduled Orders Name Type Priority Associated Diagnoses [...] type Acute URI Expected: 10/10/2023, Expires: 11/10/2023 CULTURE, URINE, QUANTITATIVE Lab STAT Fatigue, unspecified type Acute URI Ordered: 10/10/2023 GASTROINTESTINAL PATHOGEN PANEL, STOOL Lab Routine Diarrhea, [...] Valid? Yes Lot Number [id number] Expiration Date 33 Blood 10/10/2023 Chandra Braun PA-C LAB POINT O F CARE TEST ENTER/EDIT ORDERABLES * (ABNORMAL) URINALYSIS, POINT OF CARE (ENTER/EDIT) (10/10/2023) Color, Urine Imperial Yellow or Light Yellow Clarity, Urine Clear Clear Glucose, Urine Negative Negative mg/dL Bilirubin, Urine Moderate Negative Ketone, Urine Trace Negative mg/dL Specific [place], Urine 1.030 1.003 - 1.030 Blood, Urine [...] quadrant documented in this encounter Care Teams Spinner Fixer Relationship Specialty Start Date End Date Jennifer Jimenez DO [address] [place] [address] PCP - General Family Medicine 09/17/18 documented as of this encounter"
--- OUTSIDE RECORDS SUMMARY | 2024-03-07 13:23 | External Medical Summary | Summary of Care ---
Author Name Unknown Organization [facility] Address [address] [place] [address] Phone [phone] Care Team Providers Care Platform Operations Director Name Role Phone Jennifer Jimenez DO Primary Care Provider Reason for Visit * Reason Onset Date Comments Lightheadedness Cold Symptoms 10/03/2023 Encounter Details Date Type Department Care Team (Late st Contact Info) Description 10/03/2023 4:45 PM EST Convenient Care Visit [facility] [address] [place] [address] Chandra Braun PA-C [address] [place] [address] Lightheaded*; Acute URI Allergies Active Allergy Reactions Criticality Noted Date Comments Doxycycline Hives 08/01/2012 Macrolides And Ketolides 07/15/2000 unknown Morphine And Related 06/11/2008 GI upset Penicillins 08/29/1999 1969 anaphylaxis documented as of this encounter (statuses as of 10/03/2023) Medications Medication Sig Dispensed Refills Start Date End Date Status Blood Glucose Monitoring Suppl (ONETOUCH ULTRA SYSTEM) w/Device KITIndications:Type 2 diabetes mellitus with hemoglobin A1c goal of less than 8.0% ([facility]) Use as directed 4 times [...] hemoglobin A1c goal of less than 8.0% ([facility]) Use as directed 2 times [...] weeks. 60 g 1 11/06/19 22 Active Clotrimazole 1 % External Cream (Lotrimin) Apply topically to affected area 2 times a day . Apply to head of penis 30 g 2 12/28/19 22 Active metFORMIN HCl ER 500 MG Oral Tablet Extended Release 24 Hour (Glucophage XR) 1 daily with breakfast x 2 weeks then 2 daily with breakfast 60 Tablet 11 06/21/20 22 Active OneTouch Delica Lancets 33GIndications:Type 2 diabetes mellitus with hemoglobin A1c goal of less than 8.0% ([facility]) Use as directed 4 times per day 400 Each 3 10/18/19 23 Active Levemir FlexTouch 100 UNIT/ML Subcutaneous Solution Pen-injector (Insulin Detemir)Indications:Type 2 diabetes mellitus with hyperglycemia, with long-term current use of insulin ([facility]) Inject 40 units subcutaneously before [...] EVERY MORNING 180 Tablet 12/25/19 23 Active Triamcinolone Acetonide 0.1 % External Cream (Aristocort) Apply topically to affected area 2 times a day. To affected area. vaseline after 453.6 g 01/17/20 Active Famotidine 20 MG Oral Tablet (Pepcid)Indications:Maria Elena roesophageal reflux disease without esophagitis TAKE 1 TABLET BY MOUTH IN THE MORNING AND 1 TABLET BEFORE BEDTIME 60 Tablet 03/23/20 Active BD Pen Needle Mini U/F 31G X 5 MM (Insulin Pen Needle) Use 4 times daily with insulin injections 100 Each 04/24/20 Active FLUoxetine HCl 40 MG Oral Capsule (PROzac)Indications:Estrellita e eating disorder Take 1 Capsule by mouth in the morning. 30 Capsule 04/24/20 Active Rosuvastatin Calcium 20 MG Oral Tablet (Crestor)Indications:Pur e hypercholesterolemia TAKE ONE TABLET BY MOUTH EVERY MORNING. PLEASE GO DO LABS NOW SO WE CAN CONTINUE TO SAFELY PRESCRIBE. 90 Tablet 0 06/20/20 23 Active amLODIPine Besylate 10 MG Oral [...] MORNING 30 Tablet 2 08/07/20 23 Active NovoLOG FlexPen 100 UNIT/ML Subcutaneous Solution Pen-injector (insulin aspart)Indications:Type 2 diabetes mellitus with hyperglycemia, with long-term current use of insulin ([facility]) Inject 15 Units under the skin in the morning and 15 Units at noon and 15 Units in the evening. Inject with meals. 15 mL 04/06/20 023 Discontin ued(Medic ation List Clean Up) Ozempic (2 MG/DOSE) 8 MG/3ML Subcutaneous Solution Pen-injector (Semaglutide (2 MG/DOSE))Indications:Typ e 2 diabetes mellitus with hyperglycemia, with long-term current use of insulin ([facility]) INJECT 0.75ML(2MG) UNDER THE SKIN ONCE WEEKLY 3 mL 04/23/20 023 Discontin ued(Medic ation List Clean Up) documented as of this encounter (statuses as of 10/03/2023) Active Problems Problem Noted Date Diagnosed Date [...] as of this encounter (statuses as of 10/03/2023) Resolved Problems Problem Noted Date Diagnosed Date [...] as of this encounter (statuses as of 10/03/2023) Immunizations Name Administration Dates Next Due COVID-19 mRNA, LNP-s, No Pre serve, 2-Dose Series ([employer]izer) 06/07/2021,12/26/2020 H1N1 2009 Influenza, IM 09/01/2009 Hepatitis B, 20+ yrs 05/31/2014,12/10/2013,11/08 Pneumococcal Conjugate Vacci ne, 20-valent ([id number]) 03/07/2022 Pneumococcal Polysaccharide PPV23 (Pneumovax) 04/29/2008 Seasonal [...] oz pur e alcohol) comunion wine at zoroastrianism PHQ-2 Answer Date Recorded PHQ-2 Score -1 [...] Sign Reading Time Taken Comments Blood Pressure 142/80 10/03/2023 5:12 PM EST Pulse 84 10/03/2023 5:12 PM EST Temperature 35.8 C (96.4 F) 10/03/2023 5:12 PM ES T Respiratory Rate 16 10/03/2023 5:12 PM EST Oxygen Saturation 99% 10/03/2023 5:12 PM EST Inhaled Oxygen Concentration - - Weight - - Height - - Body Mass Index - - documented in this encounter Patient Instructions * Patient Instructions* Chandra Braun PA-C - 10/03/2023 5:38 PM EST Stop at [facility] today for labs. Start a daily nasal spray such as Flonase, Nasacort, OR Nasonex. They work best if used consistently. In addition to one of these medicated nasal sprays use saline nasal spray to avoid dryness and thinout mucous Over the Counter (OTC) antihistamine (claritin, zyrtec, xyzal or augustine) can also be helpful for sinus symptoms. OTC decongestants: Sudafed, Mucinex-D (may have to get from behind pharmacy counter; you have to show your ID) can be used for nasal/sinus congestion for just a few days. If you have high blood pressure, you can use Coricidin. Continue supportive measures: Increase clear, non-sugary fluid intake. Get plenty of rest Use a cool mist vaporizer or humidifier daily and you can take hot showers for steam therapy. Do warm salt water gargles and/or chloraseptic throat spray, throat lozenges (Cepacol) for any sorethroat. Honey, if not concerned about diabetes or elevated blood sugar levels, can also be very helpful forsorethroat. You may also use ibuprofen or acetaminophen OTC for relief of pain or fevers. If you had a negative rapid strep test, we will inform you if your PCR ("the send out") comes back positive, and start you on antibiotics. Otherwise, you may assume the PCR was also negative. If you had a viral swab (e.g. COVID, Flu, RSV, or otherwise), we will notify you if you test positive. If you do not hear from us, assume your test was negative. Follow up with PCP or return if no improvement in a week, or sooner if worse. Go to the ED if any severe symptoms appear acutely documented in this encounter Progress Notes * Chandra Braun PA-C - 10/03/2023 5:40 PM EST Nursing Notes: Julia Ortiz LPN 10/03/23 1106 Sign at exiting of workspace Ten Corbin is a 58 year old male who presents to walk-in clinic today complaining of Chief Complaint Patient presents with Lightheadedness Main Symptoms: patient reports feeling lightheaded, a little fuzzy and having floaters. This started on Friday of this week. Says he's had decreased appetite the past few days- today it's better. Patient does not check his BSG routinely- says the last time he checked it was months ago. Last time he took his metformin was about a month ago. Cause: unsure but thinks it may be because he's overweight, says his blood sugar is probably too high also. How lon days Tried: nothing Pt accompanied by: self Ten Corbin is a 58 year old male who presents with upper respiratory symptoms for 2 day(s) Patient was accompanied by Self. HPI Severity of Symptoms: Moderate Modifying Factors (what was done since onset of symptoms): none Timing (how often does it occur): constant Quality (feels like): 'fuzzy' Other associated Signs and Symptoms: nc, rhinorrhea, pnd, st, dry cough - all mild. Denies f/s/ch, n/v/d/c. Reports LH that is "feeling fuzzy" but not vertigo. Reports anorexia. 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 Has not been taking his DM medications. Denies sob, wheezing, cp, palp. 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 DM type 2, goal A1c below 7 Diabetes Type II, Controlled HTN, goal below 140/90 Hypertension Benign Hypothyroidism 04/29/2014 Obesity, BMI not known Obesity Past Surgical History: Procedure Laterality Date COLONOSCOPY, DIAGNOSTIC (RECTUM) 07/25/2017 poor prep, repeat 1 yr/[facility] REVISE HORIZONTAL EYE MUSCLE 1969 Strabissmus Surgery TOOTH ROOT REMOVAL dentures Social History Tobacco Use Smoking status: Never Smokeless tobacco: Never Substance Use Topics Alcohol use: Not Currently Comment: comunion wine at zoroastrianism Vaping/E-Cigarette Use Vaping/E-Cigarette Use Never User Vaping/E-Cigarette Substances Nicotine No Other No Flavoring No THC No Cannabidiol (CBD) No Vaping/E-Cigarette Devices Disposable No Pre-filled or Refillable Cartridge No Refillable Tank No Pre-filled Pod No Current Outpatient Medications Medication Sig Dispense Refill Blood Glucose Monitoring Suppl (Pivot MedicalUCH ULTRA SYSTEM) w/Device KIT Use as directed 4 times a day as needed for Hyperglycemia (high sugar). Use up to four times a day as directed 1 Kit 0 Blood Glucose Monitoring Suppl (Pivot MedicalUCH ULTRA 2) w/Device KIT Use twice daily 1 Kit 0 Insulin Pen Needle 32G X 8 MM [...] up to two weeks. 60 g 1 Clotrimazole 1 % External Cream (Lotrimin) Apply topically to affected area 2 times a day . Apply to head of penis 30 g 2 metFORMIN HCl ER 500 MG Oral Tablet Extended Release 24 Hour (Glucophage XR) 1 daily with breakfastx 2 weeks then 2 daily with breakfast 60 Tablet 11 Levemir FlexTouch 100 UNIT/ML Subcutaneous Solution Pen-injector (Insulin Detemir) Inject 40 units subcutaneously before bedtime. Titrating dose every 2 weeks until BG <180 15 mL 11 Levothyroxine Sodium 175 MCG Oral Tablet (Levoxyl) TAKE ONE TABLET BY MOUTH EVERY MORNING AT LEAST 30 MINUTES PRIOR TO BREAKFAST OR OTHER MEDICATIONS 90 Tablet 3 Aspirin Low Dose 81 MG Oral Tablet Delayed Release (aspirin enteric coated) TAKE TWO TABLETS BY MOUTH EVERY MORNING 180 Tablet 3 Triamcinolone Acetonide 0.1 % External Cream (Aristocort) Apply topically to affected area 2 times a day. To affected area. vaseline after 453.6 g 5 Famotidine 20 MG Oral Tablet (Pepcid) TAKE 1 TABLET BY MOUTH IN THE MORNING AND 1 TABLET BEFORE BEDTIME 60 Tablet 11 BD Pen Needle Mini U/F 31G X 5 MM (Insulin Pen Needle) Use 4 times daily with insulin injections 100 Each 5 FLUoxetine HCl 40 MG Oral Capsule (PROzac) Take 1 Capsule by mouth in the morning. 30 Capsule 5 Rosuvastatin Calcium 20 MG Oral Tablet (Crestor) TAKE ONE TABLET BY MOUTH EVERY MORNING. PLEASE GO DO LABS NOW SO WE CAN CONTINUE TO SAFELY PRESCRIBE. 90 Tablet 0 amLODIPine Besylate 10 MG Oral Tablet (Norvasc) TAKE ONE TABLET BY MOUTH EVERY MORNING 90 Tablet 1 Metoprolol Succinate ER 50 MG Oral Tablet Extended Release 24 Hour (toPROL XL) TAKE ONE TABLET BY MOUTH EVERY MORNING 90 Tablet 1 Lisinopril 20 MG Oral Tablet (Prinivil) TAKE ONE TABLET BY MOUTH EVERY MORNING 30 Tablet 2 OneTouch Delica Lancets 33G Use as directed 4 times per day 400 Each 3 No current facility-administered medications for this visit. Review of patient's allergies indicates: Allergen Reactions Doxycycline Hives Macrolides And Ketolides unknown Morphine And Related GI upset Penicillins 1969 anaphylaxis Family History Problem Relation Age of Onset Diabetes Mother Eye Problems Mother Eye Problems Father Blood Disorder Father pernious anemia Other (keratoderma) Father No Past Hx Sister Asthma Brother Lung Disorder Brother sleep apnea OBJECTIVE BP 142/80 | Pulse 84 | Temp 35.8 C (96.4 F) (Tympanic) | Resp 16 | SpO2 99% Wt Readings from Last 1 Encounters: 04/24/23 124.9 kg (275 lb 6.4 oz) General Appearance: awake, alert, no apparent distress HEENT: perrl and eomi tms - clear, normal light reflex, no erythema + red and irritated pharynx No sinus tenderness or facial pain to percussion + turbinate engorgement and discharge Neck: normal, supple, no adenopathy Respiratory: clear to auscultation, no rhonchi, no wheezes, and no crackles Heart: regular rate, regular rhythm, no murmurs , no rubs, and no gallops Skin: skin color, texture, turgor are normal, no rashes or significant lesions Patient Instructions Stop at [facility] today for labs. Start a daily nasal spray such as Flonase, Nasacort, OR Nasonex. They work best if used consistently. In addition to one of these medicated nasal sprays use saline nasal spray to avoid dryness and thinout mucous Over the Counter (OTC) antihistamine (claritin, zyrtec, xyzal or augustine) can also be helpful for sinus symptoms. OTC decongestants: Sudafed, Mucinex-D (may have to get from behind pharmacy counter; you have to show your ID) can be used for nasal/sinus congestion for just a few days. If you have high blood pressure, you can use Coricidin. Continue supportive measures: Increase clear, non-sugary fluid intake. Get plenty of rest Use a cool mist vaporizer or humidifier daily and you can take hot showers for steam therapy. Do warm salt water gargles and/or chloraseptic throat spray, throat lozenges (Cepacol) for any sorethroat. Honey, if not concerned about diabetes or elevated blood sugar levels, can also be very helpful forsorethroat. You may also use ibuprofen or acetaminophen OTC for relief of pain or fevers. If you had a negative rapid strep test, we will inform you if your PCR ("the send out") comes back positive, and start you on antibiotics. Otherwise, you may assume the PCR was also negative. If you had a viral swab (e.g. COVID, Flu, RSV, or otherwise), we will notify you if you test positive. If you do not hear from us, assume your test was negative. Follow up with PCP or return if no improvement in a week, or sooner if worse. Go to the ED if any severe symptoms appear acutely ASSESSMENT AND PLAN Lightheaded (Primary) - GLUCOSE METER, POINT OF CARE (ENTER/EDIT) - INFLUENZA A/B RSV SARS-COV2,PCR - CBC WITH WBC DIFFERENTIAL; Future; Expected date: 10/03/2023 - COMPREHENSIVE METABOLIC PANEL; Future; Expected date: 10/03/2023 - TSH WITH FREE T4 IF INDICATED; Future; Expected date: 10/03/2023 - HEMOGLOBIN A1C; Future; Expected date: 10/03/2023 Acute URI - INFLUENZA A/B RSV SARS-COV2,PCR - CBC WITH WBC DIFFERENTIAL; Future; Expected date: 10/03/2023 - COMPREHENSIVE METABOLIC PANEL; Future; Expected date: 10/03/2023 - TSH WITH FREE T4 IF INDICATED; Future; Expected date: 10/03/2023 - HEMOGLOBIN A1C; Future; Expected date: 10/03/2023 Suspect viral URI. Will get labs to evaluate thyroid, electrolytes, anemia, etc. Follow-up: Return if symptoms worsen or fail to improve. | Check-out note: If symtoms worsen or fail to improve Patient goals for plan of care were discussed Chandra Braun PA-C [place] [address] documented in this encounter Nursing Notes * Julia Ortiz LPN - 10/03/2023 5:10 PM EST Ten Corbin is a 58 year old male who presents to walk-in clinic today complaining of Chief Complaint Patient presents with Lightheadedness Main Symptoms: patient reports feeling lightheaded, a little fuzzy and having floaters. This started on Friday of this week. Says he's had decreased appetite the past few days- today it's better. Patient does not check his BSG routinely- says the last time he checked it was months ago. Last time he took his metformin was about a month ago. Cause: unsure but thinks it may be because he's overweight, says his blood sugar is probably too high also. How lon days Tried: nothing Pt accompanied by: self documented in this encounter Plan of Treatment Pending Results Name Type Priority Associated Diagnoses Date /Time INFLUENZA A/B RSV SARS-COV2,PCR Lab STAT Lightheaded Acute URI 10/03/2023 5:41 PM EST Scheduled Orders Name Type Priority Associated Diagnoses Orde r Schedule CBC WITH WBC DIFFERENTIAL Lab STAT Lightheaded Acute URI Expected: 10/03/2023, Expires: 11/03/2023 COMPREHENSIVE METABOLIC PANEL Lab STAT Lightheaded Acute URI Expected: 10/03/2023, Expires: 11/03/2023 TSH WITH FREE T4 IF INDICATED Lab STAT Lightheaded Acute URI Expected: 10/03/2023, Expires: 11/03/2023 HEMOGLOBIN A1C Lab STAT Lightheaded Acute URI Expected: 10/03/2023, Expires: 11/03/2023 Health Maintenance Due Date Last Done Comments Hepatitis C Screening 1985 Cologuard 2012 Fecal Occult Blood Test 2012 Sigmoidoscopy 2012 Albumin/Creatinine Ratio 06/02/2021 020, 06/19/2018, 07/11/2017, Additional history exists Depression Screening 08/25/2021 08/25/2020 HbA1c 05/21/2023 11/21/2022, 010 03/2023, 03/07/2022, Additional history exists COVID-19 Vaccine [...] Procedure Name Priority Date/Time Associated Diagnosis Comments GLUCOSE METER, POINT OF CARE (ENTER/EDIT) Routine 10/03/2023 Lightheaded documented in this encounter Results * GLUCOSE METER, POINT OF CARE (ENTER/EDIT) (10/03/2023) Glucose Meter Result 115 70 - 120 mg/dL Blood 10/03/2023 Chandra Braun PA-C LAB POINT O F CARE TEST ENTER/EDIT ORDERABLES documented in this encounter Visit Diagnoses Diagnosis Lightheaded- Primary Dizziness and giddiness Acute URI Acute upper respiratory infections of unspecified site documented in this encounter Care Teams Platform Operations Director Relationship Specialty Start Date End Date Jennifer Jimenez DO [address] [place] [address] PCP - General Family Medicine 09/17/18 documented as of this encounter
--- OUTSIDE RECORDS SUMMARY | 2024-03-07 13:23 | External Medical Summary ---
Author Name Unknown Address Unknown Organization [id number]:[facility]ORY [facility] - [address] [place] [address] Laboratory Report Ordering Provider Test Date Status YAYAARLYN 10/10/2023 18:09:34 Final Observation Date Value Abnormality Reference (Units) Status Bacteria identified in Specimen by Culture 10/10/2023 18:09:34 No significant growth Final Test: Culture, Urine, Quanti tative
Specimen Source: Urine, Clean Catch
Specimen Type: Urine
Specimen Date: 10/10/2023 6:09 PM
Result Date: 10/11/2023 4:42 PM
Result Status: Final result
Resulting Lab: [facility]
[address]
[facility] [address]

CULTURE

No significant growth

null Performing Location LABORATORY [facility] - [address] [place] [id number]
--- OUTSIDE RECORDS SUMMARY | 2024-03-07 13:23 | External Medical Summary | Summary of Care ---
Author Name Unknown Organization [facility] Address [address] [facility] [place] [address] Phone [phone] Care Team Providers Care Health Care Aide Name Role Phone Jennifer Jimenez Primary Care Provider Reason for Referral * Evaluate & Treat - Unlimited Visits (Within 10 days (routine)) - Pending Review Specialty Diagnoses / Procedures Referred By Poonam mccray Referred To Contact Family Medicine Diagnoses Major depressive disorder with current active episode, unspecified depression episode severity, unspecified whether recurrent Chandra Braun PA-C [address] [place] [address] Referral ID Status Reason Start Date Expiration Date Visits Requested Visits Authorized [id number] Pending Review Specialty Services Required [phone] Question Answer Referral Priority Within 10 days (routine) Where should this appointment be scheduled? [facility] Reason for Visit * Reason Comments Lethargy Encounter Details Date Type Department Care Team (Latest Contact Info) Description 10/10/2023 2:40 PM EST Convenient Care Visit [facility] [address] [place] [address] Chandra Braun PA-C [address] [place] [place] [address] Fatigue, unspecified type*; Acute URI; Jock itch; Diarrhea, unspecified type; Major depressive disorder with current active episode, unspecified depression episode severity, unspecified whether recurrent; LUQ abdominal pain Allergies Active Allergy Reactions Criticality Noted Date Comments Doxycycline Hives 08/01/2012 Macrolides And Ketolides 07/15/2000 unknown Morphine And Related 06/11/2008 GI upset Penicillins 08/29/1999 1969 anaphylaxis documented as of this encounter (statuses as of 10/12/2023) Medications Medication Sig Dispensed Refills Start Date End Date Status Blood Glucose Monitoring Suppl (whoplusyou ULTRA SYSTEM) w/Device KITIndications:Type 2 diabetes mellitus with hemoglobin A1c goal of less than 8.0% ([facility]) Use as directed 4 times a day as needed for Hyperglycemia (high sugar). Use up to four times a day as directed 1 Kit 0 018 Active Blood Glucose Monitoring Suppl (whoplusyou ULTRA 2) w/Device KITIndications:Type 2 diabetes mellitus [...] as of this encounter (statuses as of 10/12/2023) Active Problems Problem Noted Date Diagnosed Date [...] as of this encounter (statuses as of 10/12/2023) Resolved Problems Problem Noted Date Diagnosed Date [...] as of this encounter (statuses as of 10/12/2023) Immunizations Name Administration Dates Next Due COVID-19 mRNA, LNP-s, No Pre serve, 2-Dose Series ([employer]) 06/07/2021,12/26/2020 H1N1 2009 Influenza, IM 09/01/2009 Hepatitis B, 20+ yrs 05/31/2014,12/10/2013,11/08 Influenza, Whole Virus 07/13/1999 Pneumococcal Conjugate Vacci ne, 20-valent ([id number]) 03/07/2022 Pneumococcal Polysaccharide PPV23 (Pneumovax) 04/29/2008 Seasonal [...] oz pur e alcohol) comunion wine at orthodoxy PHQ-2 Answer Date Recorded PHQ-2 Score -1 [...] Labs and chest Xray at [facility] tomorrow morning. Clotrimazole twice a day for up to two weeks on itchy parts of genitals. Ultrasound of Left upper quadrant of abdomen. Please call [phone] to schedule your study If you cannot [...] Procedure Name Priority Date/Time Associated Diagnosis Comments CULTURE, URINE, QUANTITATIVE STAT 10/10/2023 6:09 PM EST Fatigue, unspecified type Acute URI MONO TEST, POINT OF CARE (ENTER/EDIT) Routine 10/10/2023 Fatigue, unspecified type Acute URI URINALYSIS, POINT OF CARE (ENTER/EDIT) Routine 10/10/2023 Fatigue, unspecified type Acute URI documented in this encounter Results * CULTURE, URINE, QUANTITATIVE (10/10/2023 6:09 PM EST) Culture Growth No significant growth 10/11/2023 4:42 PM EST [facility] Urine Urine specimen obtained by clean catch procedure / Unknown Non-blood Collection / Unknown 10/10/2023 6:09 PM EST 10/10/2023 6:09 PM EST Chandra Braun PA-C LAB MICRO - GENERAL ORDERABLES [facility] [place] [address] [place] [address] * MONO TEST, POINT OF CARE (ENTER/EDIT) (10/10/2023) Rapid Monospot Result Negative Negative Procedural Control Valid? Yes Lot Number [id number] Expiration Date 33 Blood 10/10/2023 Chandra Braun PA-C LAB POINT O F CARE TEST ENTER/EDIT ORDERABLES * (ABNORMAL) URINALYSIS, POINT OF CARE (ENTER/EDIT) (10/10/2023) Color, Urine [place] Yellow or Light Yellow Clarity, Urine Clear Clear Glucose, Urine Negative Negative mg/dL Bilirubin, Urine Moderate Negative Ketone, Urine Trace Negative mg/dL Specific [place], Urine 1.030 1.003 - 1.030 Blood, Urine [...] quadrant documented in this encounter Care Teams Health Care Aide Relationship Specialty Start Date End Date Jennifer Jimenez DO [address] [place] [address] PCP - General Family Medicine 09/17/18 documented as of this encounter"
--- OUTSIDE RECORDS SUMMARY | 2024-03-07 13:23 | External Medical Summary | Summary of Care ---
Author Name Unknown Organization [facility] Address [address] [place] [place] [address] Phone [phone] Care Team Providers Care Stewardess Supervisor Name Role Phone Jennifer Jimenez DO Primary Care Provider Reason for Visit * Reason Comments eRx-Medication Refill Encounter Details Date Type Department Care Team (Late st Contact Info) Description 10/08/2023 Refill Family Practice [facility] [address] [place] [id number] Jennifer Jimenez DO [address] [facility] [place] [address] Pure hypercholesterolemia Allergies Active Allergy Reactions Criticality Noted Date Comments Doxycycline Hives 08/01/2012 Macrolides And Ketolides 07/15/2000 unknown Morphine And Related 06/11/2008 GI upset Penicillins 08/29/1999 1969 anaphylaxis documented as of this encounter (statuses as of 10/08/2023) Medications Medication Sig Dispensed Refills Start Date End Date Status Blood Glucose Monitoring Suppl (ONETOUCH ULTRA SYSTEM) w/Device KITIndications:Type 2 diabetes mellitus with hemoglobin A1c goal of less than 8.0% (HCC) Use as directed 4 times a day as needed for Hyperglycemia (high sugar). Use up to four times a day as directed 1 Kit 0 12/15/ 018 Active Blood Glucose Monitoring Suppl (ONETOUCH ULTRA 2) w/Device KITIndications:Type 2 diabetes mellitus with hemoglobin A1c goal of less than 8.0% (HCC) Use twice daily 1 Kit 0 019 Active Insulin Pen Needle 32G X 8 MM MISCIndications:Type 2 diabetes mellitus with hemoglobin A1c goal of less than 8.0% ([facility]) Use as directed 2 times a day. [...] to two weeks. 60 g 1 Active Clotrimazole 1 % External Cream (Lotrimin) Apply topically to affected area 2 times a day . Apply to head of penis 30 g 2 022 Active metFORMIN HCl ER 500 MG Oral Tablet Extended Release 24 Hour (Glucophage XR) 1 daily with breakfast x 2 weeks then 2 daily with breakfast 60 Tablet Active OneTouch Delica Lancets 33GIndications:Type 2 diabetes mellitus with hemoglobin A1c goal of less than 8.0% ([facility]) Use as directed 4 times per day 400 Each Active Levemir FlexTouch 100 UNIT/ML Subcutaneous Solution Pen-injector (Insulin Detemir)Indications:Typ e 2 diabetes mellitus with hyperglycemia, with long-term current use of insulin ([facility]) Inject 40 units subcutaneously before bedtime. Titrating dose every 2 weeks until BG <180 15 mL Active Levothyroxine Sodium 175 MCG Oral Tablet [...] affected area. vaseline after 453.6 g 5 023 Active Famotidine 20 MG Oral Tablet (Pepcid)Indications:Gas troesophageal reflux disease without esophagitis TAKE 1 TABLET BY MOUTH IN THE MORNING AND 1 TABLET BEFORE BEDTIME 60 Tablet 11 023 Active BD Pen Needle Mini U/F 31G X 5 MM (Insulin Pen Needle) Use 4 times daily with insulin injections 100 Each 023 Active FLUoxetine HCl 40 MG Oral Capsule (PROzac)Indications:Bin ge eating disorder Take 1 Capsule by mouth in the morning. 30 Capsule 5 023 Active amLODIPine Besylate 10 MG Oral [...] EVERY MORNING 90 Tablet 0 023 Active Rosuvastatin Calcium 20 MG Oral Tablet (Crestor)Indications:Pu re hypercholesterolemia TAKE ONE TABLET BY MOUTH EVERY MORNING. PLEASE GO DO LABS NOW SO WE CAN CONTINUE TO SAFELY PRESCRIBE. 90 Tablet 0 023 2022 Discontinued documented as of this encounter (statuses as of 10/08/2023) Active Problems Problem Noted Date Diagnosed Date [...] as of this encounter (statuses as of 10/08/2023) Resolved Problems Problem Noted Date Diagnosed Date [...] as of this encounter (statuses as of 10/08/2023) Immunizations Name Administration Dates Next Due COVID-19 mRNA, LNP-s, No Pre serve, 2-Dose Series ([employer]) 06/07/2021,12/26/2020 H1N1 2009 Influenza, IM 09/01/2009 Hepatitis B, 20+ yrs 05/31/2014,12/10/2013,11/08 Pneumococcal Conjugate Vacci ne, 20-valent ([id number]) 03/07/2022 Pneumococcal Polysaccharide PPV23 (Pneumovax) 04/29/2008 Seasonal [...] oz pur e alcohol) comunion wine at [facility] PHQ-2 Answer Date Recorded PHQ-2 Score [...] Miscellaneous Notes * Telephone Encounter - Audelia Gould [facility] - 10/08/2023 3:52 PM ESTSigned Prescriptions: Disp Refills Rosuvastatin Calcium 20 MG Oral Tablet (Cr*90 Tab*0 Sig: TAKE ONE TABLET BY MOUTH EVERY MORNINGAuthorizing Provider: JENNIFER JIMENEZ User: ARLENE GOULD A * Telephone Encounter - Audelia Gould RPh - 10/08/2023 3:51 PM EST RX authorized. Zero refills given. Patient will be due for labs. Audelia Arnold PharmD Clinical Pharmacist [facility] ([facility]) [phone] 10/08/2023, 3:52 PM documented in this encounter Plan of Treatment [...] as of this encounter Visit Diagnoses Diagnosis Pure hypercholesterolemia documented in this encounter Care Teams Stewardess Supervisor Relationship Specialty Start Date End Date Jennifer Jimenez DO [address] [place] [address] PCP - General Family Medicine 09/17/18 documented as of this encounter
--- OUTSIDE RECORDS SUMMARY | 2024-03-07 13:23 | External Medical Summary | Summary of Care ---
Author Name Unknown Organization [facility] Address [address] [facility] [place] [address] Phone [phone] Care Team Providers Care Technical Administrator Name Role Phone Jennifer Jimenez Primary Care Provider Reason for Referral * Evaluate & Treat - Unlimited Visits (Within 10 days (routine)) - Pending Review Specialty Diagnoses / Procedures Referred By Poonam mccray Referred To Contact Family Medicine Diagnoses Major depressive disorder with current active episode, unspecified depression episode severity, unspecified whether recurrent Chandra Braun PA-C [address] [place] [address] Referral ID Status Reason Start Date Expiration Date Visits Requested Visits Authorized [id number] Pending Review Specialty Services Required 3 [phone] Question Answer Referral Priority Within 10 days (routine) Where should this appointment be scheduled? [facility] Reason for Visit * Reason Comments Lethargy Encounter Details Date Type Department Care Team (Latest Contact Info) Description 10/10/2023 2:40 PM EST [facility] Visit [address] [place] [address] Chandra Braun PA-C [address] [place] [address] Fatigue, unspecified type*; Acute URI; Jock itch; [...] End Date Status Blood Glucose Monitoring Suppl ([employer] ULTRA SYSTEM) w/Device KITIndications:Type 2 diabetes mellitus with hemoglobin A1c goal of less than 8.0% (HCC) Use as directed 4 times a day as needed for Hyperglycemia (high sugar). Use up to four times a day as directed 1 Kit 0 018 Active Blood Glucose Monitoring Suppl ([employer] ULTRA 2) w/Device KITIndications:Type 2 diabetes mellitus [...] yrs 05/31/2014,12/10/2013,11/08 Pneumococcal Conjugate Vacci ne, 20-valent ([id number]) 03/07/2022 Pneumococcal Polysaccharide PPV23 (Pneumovax) 04/29/2008 Seasonal [...] oz pur e alcohol) comunion wine at [facility] PHQ-2 Answer Date Recorded PHQ-2 Score [...] PM EST Labs and chest Xray at [facility] tomorrow morning. Clotrimazole twice a day for up to two weeks on itchy parts of genitals. Ultrasound of Left upper quadrant of abdomen. Please call [phone] to schedule your study If you cannot [...] tired/lethargic. To ER x 1 Subjective Ten Vera Shaquille is a 58 year old male that [...] Fatigue, unspecified type Acute URI Ordered: 10/10/2023 URINALYSIS, POINT OF CARE (ENTER/EDIT) Point of Care Testing Routine Fatigue, unspecified type Acute URI Ordered: 10/10/2023 MONO TEST, POINT OF CARE (ENTER/EDIT) Point of Care Testing Routine Fatigue, unspecified type Acute URI Ordered: 10/10/2023 [...] as of this encounter Visit Diagnoses Diagnosis Fatigue, unspecified type- Primary Acute URI Acute upper respiratory infections of unspecified site Jock itch Dermatophytosis of groin and perianal area Diarrhea, unspecified type Major depressive disorder with current active episode, unspecified depression episode severity, unspecified whether recurrent LUQ abdominal pain Abdominal pain, left upper quadrant documented in this encounter Care Teams Technical Administrator Relationship Specialty Start Date End Date Jennifer Jimenez DO [address] [place] [address] PCP - General Family Medicine 09/17/18 documented as of this encounter"
[2024-03-07 13:37] LABS: Basophils % (auto) 1.2 %; Eosinophils # (auto) 0.29 K/uL (0.00-0.50); Eosinophils % (auto) 3.6 %; Hematocrit (blood only) 41.8 % (42.0-52.0); Hemoglobin 14.3 g/dl (14.0-18.0); Immature Granulocytes # (auto) 0.02 K/uL (0.01-0.20); Immature Granulocytes % (auto) 0.2 %; Lymphocytes # (auto) 1.25 K/uL (1.20-3.40); Lymphocytes % (auto) 15.4 %; Mean Corpuscular Hemoglobin 27.1 pg (25.0-34.0); Mean Corpuscular Hgb Conc 34.2 g/dL (32.0-36.0); Mean Corpuscular Volume 79.3 fL (80.0-100.0); Mean Platelet Volume 8.8 fL (9.4-12.4); Monocytes # (auto) 0.38 K/uL (0.11-0.59); Monocytes % (auto) 4.7 %; Neutrophils # (auto) 6.08 K/uL (1.40-6.50); Neutrophils % (auto) 74.9 %; Platelet Count 263 K/uL (130-400); RDW Coefficient of Variation 13.1 % (11.5-14.5); RDW Standard Deviation 37.2 fL (36.4-46.3); Red Blood Count 5.27 M/uL (4.70-6.10); White Blood Count 8.12 K/ul (4.8-10.8)
[2024-03-07 13:40] LABS: iSTAT Creatinine 1.1 mg/dl (0.6-1.3); iSTAT Hemoglobin 13.9 g/dl (14.0-18.0); iSTAT Ionized Calcium 1.14 mmol/l (1.12-1.32); iSTAT Potassium 4.3 mmol/L (3.3-5.0)
[2024-03-07 13:53] LABS: Albumin Globulin Ratio 1.2 (0.9-2); Albumin Level 3.7 gm/dl (3.4-5.0); BUN Creatinine Ratio 12.7 (10-20); Bilirubin,Total 0.5 mg/dl (0.2-1.0); Calcium 8.7 mg/dl (8.6-10.3); Creatinine Clr Calc Pharmacy 90.3 ml/min; Est GFR (African American) 86.5 ml/min; Est GFR (Non-African American) 74.6 ml/min; Globulin 3.2 gm/dl (2.5-4.0); Magnesium 1.7 mg/dl (1.7-2.4); Potassium 4.3 mmol/L (3.5-5.1); Total Protein 6.9 gm/dl (6.0-8.3)
[2024-03-07] MEDS: OPTIRAY 320 125ml IV ONE (14:00)
[2024-03-07 14:01] LABS: Troponin I High Sensitivity 1225.7 pg/ml (0-20)
[2024-03-07 14:03] LABS: Partial Thromboplastin Time 27 Seconds (21-31); Prothrombin Time 11.1 Seconds (9.0-12.0)
--- NOTE | 2024-03-07 14:25 | CT Scan Report ---
CT angio neck with con, CT angio head w con, CT head/brain wo con CLINICAL HISTORY: neuro deficit, acute stroke suspected TECHNIQUE: Contiguous axial CT images of the head were acquired from the base of the skull to the lyndsey giovanna without intravenous contrast administration. CT angiography of the head and neck was performed f ollowing intravenous administration of iodinated contrast. Coronal and sagittal MIPS were obtained fr om the axial data set and were submitted for review. Automated dose lowering techniques and/or adjus tment according to patient size were utilized for this examination. All measurements were calculated based on NASCET criteria. CT DOSE: 1156.27 mGy.cm Comparison: Comparison is made to CT head 02/09/2008 FINDINGS: CT head: Areas of decreased attenuation are present in the periventricular and subcortical white marybeth er bilaterally consistent with small vessel ischemic disease. Generalized cerebral atrophy with comme nsurate enlargement of the ventricles, sulci, and cisterns is also present. There is no acute intracr anial hemorrhage or evidence of acute territorial infarction. No shift of the midline structures, mas s effect, or extra-axial abnormalities are shown. Atherosclerotic calcifications are present in the intracranial segments of the internal carotid arteries. Lungs and soft tissues are unremarkable. 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 Direct origin of the left lyndsey tebral artery from the aorta is noted. There is no significant atherosclerotic plaque in the aortic a rch or the origins of the innominate, left common carotid, and left subclavian arteries. Incidental note is made of tortuous common carotid arteries bilaterally. The right vertebral artery is dominant. CTA Head: The anterior and posterior cerebral circulations are patent. No hemodynamically significan t stenosis, aneurysm, dissection, or arteriovenous malformation is shown. IMPRESSION: 1. No acute intracranial hemorrhage, evidence of acute territorial infarction, or other acute intrac ranial disease process. Age-related changes as above. 2. No occlusion, hemodynamically significant stenosis, or dissection in the major cervical arteries. 3. No occlusion, hemodynamically significant stenosis, aneurysm, dissection, or arteriovenous malfor mation in the major intracranial arteries. Assessment of stenosis of the internal carotid arteries is based on NASCET criteria. ACT 112: Negative or not required by law. Electronically signed by: Jeremiah Keller M.D. 03/07/2024 2:23 PM
--- NOTE | 2024-03-07 15:02 | Emergency Department Note ---
History of Present Illness General Chief complaint: Stroke/CVA Symptoms Stated complaint: CVA SX Time Seen by Provider: 03/07/24 13:06 History of Present Illness Provider complaint: Left upper extremity numbness Location: upper extremity and left Associated symptoms: no chest pain, no fever/chills or no shortness of breath 58-year-old male presents emergency department for left upper extremity numbness. Patient reports his symptoms began at 0800. He reports his numbness is improved. No headache. No chest pain or difficulty breathing. No difficulty speaking. No seizure. No falls or traumas. Home Medications Medication Instructions Recorded Confirmed Type aspirin 81 mg tablet,delayed 162 mg PO DAILY 09/29/21 03/07/24 History release metoprolol succinate 50 mg 50 mg PO QAM 09/29/21 03/07/24 History tablet,extended release 24 hr rosuvastatin 20 mg tablet 20 mg PO QAM 09/29/21 03/07/24 History acetaminophen 650 mg 650 mg PO Q8H PRN Pain 06/13/22 03/07/24 History tablet,extended release amlodipine 10 mg tablet 10 mg PO QAM 06/13/22 03/07/24 History clobetasol 0.05 % topical cream 1 applic topical BID PRN Skin 06/13/22 03/07/24 History Irritation famotidine 20 mg tablet 20 mg PO BID 06/13/22 03/07/24 History fluoxetine 20 mg capsule 40 mg PO QAM 06/13/22 03/07/24 History insulin detemir U-100 100 unit/mL 34 unit subcut UD 06/13/22 03/07/24 History (3 mL) subcutaneous pen (Levemir FlexTouch U-100 Insulin) levothyroxine 175 mcg tablet 175 mcg PO DAILYBB 06/13/22 03/07/24 History melatonin 3 mg tablet 3 mg PO HS 06/13/22 03/07/24 History semaglutide 2 mg/dose (8 mg/3 mL) 0.75 mg subcut UD 06/13/22 03/07/24 History subcutaneous pen injector (Ozempic) tadalafil 5 mg tablet (Cialis) 5 mg PO UD 06/13/22 03/07/24 History Lactobacillus acidophilus 10 100 mg PO BID #60 caps 06/14/22 03/07/24 Rx billion cell capsule (NewFlora) bupropion HCl 150 mg 24 hr tablet, 150 mg PO QAM 03/07/24 03/07/24 History extended release insulin glargine 100 unit/mL (3 40 unit subcut UD 03/07/24 03/07/24 History mL) subcutaneous pen (Lantus Solostar U-100 Insulin) latanoprost 0.005 % eye drops 1 drp ophthalmic (eye) HS 03/07/24 03/07/24 History lisinopril 20 mg tablet 20 mg PO QAM 03/07/24 03/07/24 History Allergies Allergy/AdvReac Type Severity Reaction Status Date / Time doxycycline Allergy Intermediate HIVES Verified 06/13/22 18:39 Penicillins Allergy Intermediate RASH Verified 06/13/22 18:39 Macrolide Antibiotics Allergy Unknown UNKNOWN Verified 06/13/22 18:39 morphine AdvReac Intermediate GI UPSET Verified 06/13/22 18:39 Past Med/Surg History Problem List (Updated 03/07/24 @ 15:11 by Jensen Reed MD) Non-ST elevation OK (NSTEMI) (Acute) Phlegmonous cellulitis Hyponatremia (Acute) History of CVA (cerebrovascular accident) Morbid obesity DM2 (diabetes mellitus, type 2) Cellulitis (Acute) Depression HTN (hypertension) CHF (congestive heart failure) Morbid obesity with BMI of 50.0-59.9, adult Pancreatitis Cholangitis concurrent with and due to calculus of gallbladder Hyperlipidemia, unspecified Hypothyroidism, unspecified Obstructive sleep apnea (adult) (pediatric) Unspecified cerebral artery occlusion with cerebral infarction Medical History Hypertension Diabetes Social History Smoking Status: Never smoker Hx Alcohol Use: Yes Alcohol type: beer Hx Substance Use: No Preferred Language: Indian Communication Ability: Effective 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 Beliefs That Will Affect Care: None Current Living Situation: Alone Feels Safe at Home: Yes Assistive Devices: None Physical Exam Vital Signs Vital Signs - 24 hr 03/07/24 13:06 03/07/24 13:09 03/07/24 14:00 Temperature 37.0 C Temperature Source Oral Pulse Rate 95 H 94 H 90 Pulse Rhythm Regular Pulse Strength Normal Respiratory Rate 17 12 Respiratory Effort / Characteristics Non-Labored Respiratory Depth Normal Respiratory Pattern Regular Blood Pressure 166/113 H 161/104 H Blood Pressure Mean 130 123 Pulse Oximetry 94 99 Oxygen Delivery Method Room Air Room Air Sepsis Recent Fever Within 48 Hours No Sepsis New/Unexplained Change in Mental Status No Sepsis Action Taken by Nursing No Action Required Physical Exam GENERAL: He is oriented to person, place, and time. He appears well-developed and well-nourished. He does not appear distressed. HENT: Exam performed. - Head: Normocephalic and atraumatic. - Right Ear: External ear normal. No mastoid erythema - Left Ear: External ear normal. No mastoid erythema - Mouth/Throat: The oropharynx is clear and moist. No trismus in the jaw. No dental abscesses or uvula swelling. No oropharyngeal exudate or tonsillar abscesses. EYES: Conjunctivae and EOM are normal. Pupils are equal, round, and reactive to light. Right eye exhibits no discharge. Left eye exhibits no discharge. No scleral icterus. NECK: Normal range of motion. Neck supple. No JVD present. No rigidity. No tracheal deviation and normal range of motion present. CV: Normal rate, regular rhythm, normal heart sounds and intact distal pulses. There is no peripheral edema. Palpable radial pulses bue. PULM/CHEST: Effort normal and breath sounds normal. No respiratory distress. No stridor. He has no wheezes. He has no rales. ABD: The abdomen is soft. There is no tenderness. There is no rebound, no guarding. MUSC/SKEL: Normal range of motion. There is no peripheral edema, tenderness or deformity. Palpable radial pulses bilaterally. Palpable DP and PT pulses bilaterally. NEURO: He is alert and oriented to person, place, and time. He has normal strength. No cranial nerve deficit or sensory deficit. Coordination and gait normal. GCS eye subscore is 4. GCS verbal subscore is 5. GCS motor subscore is 6. Cerebellar tests wnl. NIHSS: 0 Course Course 1306: The patient was evaluated in room A11. A complete history and physical exam was performed Cardiac monitoring: An order was placed for continuous cardiac monitoring. The monitor shows a rate of 90 with sinus rhythm interpreted by me Patient has NIH shows scale of 0 no code stroke called. 1435: Vital signs stable. Imaging shows no ICH or CVA oh. On reassessment patient is no longer having numbness. He reports no chest pain or difficulty breathing. No left arm pain. No headache. Patient's troponin is elevated at at one 225.7. Creatinine within normal limits. Discussed case with interventional cardiology Dr. Ashley who is down here evaluating another hardware patient and we both felt that the patient can be started on heparin. No concern for dissection as patient is not currently having any pain in his chest back or arm. 1505: Discussed case with Dr. Pimentel who will admit the patient to his service. Administered Medications Discontinued Medications Ioversol (Optiray 320 125ml) 120 ml IV ONCE ONE Stop: 03/07/24 14:00 Last Admin: 03/07/24 14:00 Dose: 120 ml Documented By: LOU Critical Care Time Critical Care Time: Yes Total Critical Care Time: 56 I have personally spent greater than 56 minutes of critical care time in the direct management of this patient. This includes bedside care, interpretation of diagnostic studies, and testing, discussion with consultants, patient, and family members, and other required patient management activities. This 56 minutes is in excess of all separately billable procedures. Medical Decision Making Laboratory Data Attestation: I reviewed the patient's lab results. 03/07/24 13:22 03/07/24 13:22 Lab Results 03/07/24 03/07/24 03/07/24 Range/Units 13:04 13:22 13:27 WBC 8.12 (4.8-10.8) K/ul RBC 5.27 (4.70-6.10) M/uL Hgb 14.3 (14.0-18.0) g/dl POC Hgb 13.9 L (14.0-18.0) g/dl Hct 41.8 L (42.0-52.0) % POC Hct 41 L (42-52) % MCV 79.3 L (80.0-100.0) fL MCH 27.1 (25.0-34.0) pg MCHC 34.2 (32.0-36.0) g/dL RDW Std Deviation 37.2 (36.4-46.3) fL RDW Coeff of Oziel 13.1 (11.5-14.5) % Plt Count 263 (130-400) K/uL MPV 8.8 L (9.4-12.4) fL Immature Gran % (Auto) 0.2 % Neut % (Auto) 74.9 % Lymph % (Auto) 15.4 % [place] % (Auto) 4.7 % Eos % (Auto) 3.6 % Baso % (Auto) 1.2 % Neut # (Auto) 6.08 (1.40-6.50) K/uL Lymph # (Auto) 1.25 (1.20-3.40) K/uL [place] # (Auto) 0.38 (0.11-0.59) K/uL Eos # (Auto) 0.29 (0.00-0.50) K/uL Baso # (Auto) 0.10 (0.00-0.20) K/uL Immature Gran # (Auto) 0.02 (0.01-0.20) K/uL PT 11.1 (9.0-12.0) Seconds INR 1.0 (0.9-1.1) APTT 27 (21-31) Seconds PTT Ratio 1.0 POC Sodium 131 L (135-144) mmol/L Sodium 130 L (136-145) mmol/L POC Potassium 4.3 (3.3-5.0) mmol/L Potassium 4.3 (3.5-5.1) mmol/L POC Chloride 94 L (101-112) mmol/L Chloride 97 L (98-107) mmol/L Carbon Dioxide 26 (21-32) mmol/L POC Total CO2 25 (24-31) mmol/L Anion Gap 7 (3-11) POC Anion Gap 17.0 (16-25) mmol/L POC BUN 14 (7-18) mg/dl BUN 14 (6-23) mg/dl Creatinine 1.10 (0.6-1.4) mg/dl POC Creatinine 1.1 (0.6-1.3) mg/dl Est Cr Clr Drug Dosing 90.3 ml/min Est GFR ( Amer) 86.5 ml/min Est GFR (Non-Af Amer) 74.6 ml/min BUN/Creatinine Ratio 12.7 (10-20) Glucose 294 H (70-99(Fasting)) mg/dl POC Glucose 327 H* (70-99) mg/dl POC Glucose (other) 293 H (70-99) mg/dl Calcium 8.7 (8.6-10.3) mg/dl POC Ioniz Calcium Ericka 1.14 (1.12-1.32) mmol/l Magnesium 1.7 (1.7-2.4) mg/dl Total Bilirubin 0.5 (0.2-1.0) mg/dl AST 13 (13-39) U/L ALT 12 (7-52) U/L Alkaline Phosphatase 91 (34-104) U/L Troponin I High Sens 1225.7 H* (0-20) pg/ml Total Protein 6.9 (6.0-8.3) gm/dl Albumin 3.7 (3.4-5.0) gm/dl Globulin 3.2 (2.5-4.0) gm/dl Albumin/Globulin Ratio 1.2 (0.9-2) Blood Type O Positive Antibody Screen NEGATIVE Imaging Data Attestation: I personally reviewed and interpreted this imaging study as follows: My Impression: Chest x-ray: No significant change from the chest x-ray done in September 2023 Radiologist's Impression: Head CT 03/07/24 13:12 CT angio neck with con, CT angio head w con, CT head/brain wo con CLINICAL HISTORY: neuro deficit, acute stroke suspected TECHNIQUE: Contiguous axial CT images of the head were acquired from the base of the skull to the vertex without intravenous contrast administration. CT angiography of the head and neck was performed following intravenous administration of iodinated contrast. Coronal and sagittal MIPS were obtained from the axial data set and were submitted for review. Automated dose lowering techniques and/or adjustment according to patient size were utilized for this examination. All measurements were calculated based on NASCET criteria. CT DOSE: 1156.27 mGy.cm Comparison: Comparison is made to CT head 02/09/2008 FINDINGS: CT head: Areas of decreased attenuation are present in the periventricular and subcortical white matter bilaterally consistent with small vessel ischemic disease. Generalized cerebral atrophy with commensurate enlargement of the ventricles, sulci, and cisterns is also present. There is no acute intracranial hemorrhage or evidence of acute territorial infarction. No shift of the midline structures, mass effect, or extra-axial abnormalities are shown. Atherosclerotic calcifications are present in the intracranial segments of the internal carotid arteries. Lungs and soft tissues are unremarkable. 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 Direct origin of the left vertebral artery from the aorta is noted. There is no significant atherosclerotic plaque in the aortic arch or the origins of the innominate, left common carotid, and left subclavian arteries. Incidental note is made of tortuous common carotid arteries bilaterally. The right vertebral artery is dominant. CTA Head: The anterior and posterior cerebral circulations are patent. No hemodynamically significant stenosis, aneurysm, dissection, or arteriovenous malformation is shown. IMPRESSION: 1. No acute intracranial hemorrhage, evidence of acute territorial infarction, or other acute intracranial disease process. Age-related changes as above. 2. No occlusion, hemodynamically significant stenosis, or dissection in the major cervical arteries. 3. No occlusion, hemodynamically significant stenosis, aneurysm, dissection, or arteriovenous malformation in the major intracranial arteries. Assessment of stenosis of the internal carotid arteries is based on NASCET criteria. ACT 112: Negative or not required by law. Electronically signed by: Jeremiah Keller M.D. 03/07/2024 2:23 PM Head CTA 03/07/24 13:12 CT angio neck with con, CT angio head w con, CT head/brain wo con CLINICAL HISTORY: neuro deficit, acute stroke suspected TECHNIQUE: Contiguous axial CT images of the head were acquired from the base of the skull to the vertex without intravenous contrast administration. CT angiography of the head and neck was performed following intravenous administration of iodinated contrast. Coronal and sagittal MIPS were obtained from the axial data set and were submitted for review. Automated dose lowering techniques and/or adjustment according to patient size were utilized for this examination. All measurements were calculated based on NASCET criteria. CT DOSE: 1156.27 mGy.cm Comparison: Comparison is made to CT head 02/09/2008 FINDINGS: CT head: Areas of decreased attenuation are present in the periventricular and subcortical white matter bilaterally consistent with small vessel ischemic disease. Generalized cerebral atrophy with commensurate enlargement of the ventricles, sulci, and cisterns is also present. There is no acute intracranial hemorrhage or evidence of acute territorial infarction. No shift of the midline structures, mass effect, or extra-axial abnormalities are shown. Atherosclerotic calcifications are present in the intracranial segments of the internal carotid arteries. Lungs and soft tissues are unremarkable. 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 Direct origin of the left vertebral artery from the aorta is noted. There is no significant atherosclerotic plaque in the aortic arch or the origins of the innominate, left common carotid, and left subclavian arteries. Incidental note is made of tortuous common carotid arteries bilaterally. The right vertebral artery is dominant. CTA Head: The anterior and posterior cerebral circulations are patent. No hemodynamically significant stenosis, aneurysm, dissection, or arteriovenous malformation is shown. IMPRESSION: 1. No acute intracranial hemorrhage, evidence of acute territorial infarction, or other acute intracranial disease process. Age-related changes as above. 2. No occlusion, hemodynamically significant stenosis, or dissection in the major cervical arteries. 3. No occlusion, hemodynamically significant stenosis, aneurysm, dissection, or arteriovenous malformation in the major intracranial arteries. Assessment of stenosis of the internal carotid arteries is based on NASCET criteria. ACT 112: Negative or not required by law. Electronically signed by: Jeremiah Keller M.D. 03/07/2024 2:23 PM Neck CTA 03/07/24 13:12 CT angio neck with con, CT angio head w con, CT head/brain wo con CLINICAL HISTORY: neuro deficit, acute stroke suspected TECHNIQUE: Contiguous axial CT images of the head were acquired from the base of the skull to the vertex without intravenous contrast administration. CT angiography of the head and neck was performed following intravenous administration of iodinated contrast. Coronal and sagittal MIPS were obtained from the axial data set and were submitted for review. Automated dose lowering techniques and/or adjustment according to patient size were utilized for this examination. All measurements were calculated based on NASCET criteria. CT DOSE: 1156.27 mGy.cm Comparison: Comparison is made to CT head 02/09/2008 FINDINGS: CT head: Areas of decreased attenuation are present in the periventricular and subcortical white matter bilaterally consistent with small vessel ischemic disease. Generalized cerebral atrophy with commensurate enlargement of the ventricles, sulci, and cisterns is also present. There is no acute intracranial hemorrhage or evidence of acute territorial infarction. No shift of the midline structures, mass effect, or extra-axial abnormalities are shown. Atherosclerotic calcifications are present in the intracranial segments of the internal carotid arteries. Lungs and soft tissues are unremarkable. 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 Direct origin of the left vertebral artery from the aorta is noted. There is no significant atherosclerotic plaque in the aortic arch or the origins of the innominate, left common carotid, and left subclavian arteries. Incidental note is made of tortuous common carotid arteries bilaterally. The right vertebral artery is dominant. CTA Head: The anterior and posterior cerebral circulations are patent. No hemodynamically significant stenosis, aneurysm, dissection, or arteriovenous malformation is shown. IMPRESSION: 1. No acute intracranial hemorrhage, evidence of acute territorial infarction, or other acute intracranial disease process. Age-related changes as above. 2. No occlusion, hemodynamically significant stenosis, or dissection in the major cervical arteries. 3. No occlusion, hemodynamically significant stenosis, aneurysm, dissection, or arteriovenous malformation in the major intracranial arteries. Assessment of stenosis of the internal carotid arteries is based on NASCET criteria. ACT 112: Negative or not required by law. Electronically signed by: Jeremiah Keller M.D. 03/07/2024 2:23 PM ECG Data Attestation: I personally reviewed and interpreted this ECG as follows: Rate (beats per minute): 95 Rhythm: + normal sinus ECG Intervals/blocks: + First degree AV block, + Normal QRS and + Normal QT-c ECG ST segments: + Normal ST segments MDM Narrative 1306: The patient was evaluated in room A11. A complete history and physical exam was performed Cardiac monitoring: An order was placed for continuous cardiac monitoring. The monitor shows a rate of 90 with sinus rhythm interpreted by me Patient has NIH shows scale of 0 no code stroke called. 1435: Vital signs stable. Imaging shows no ICH or CVA oh. On reassessment patient is no longer having numbness. He reports no chest pain or difficulty breathing. No left arm pain. No headache. Patient's troponin is elevated at at one 225.7. Creatinine within normal limits. Discussed case with interventional cardiology Dr. Ashley who is down here evaluating another hardware patient and we both felt that the patient can be started on heparin. No concern for dissection as patient is not currently having any pain in his chest back or arm. 1505: Discussed case with Dr. Pimentel who will admit the patient to his service. Impression & Plan Non-ST elevation OK (NSTEMI) Discharge Plan Visit Data Chief Complaint: Stroke/CVA Symptoms Stated Complaint: CVA SX ED Provider: Jensen Reed Discharge Problem: Non-ST elevation OK (NSTEMI) Patient Disposition: Admitted As Inpatient Forms Stand Alone Forms: [facility] Prescriptions Prescriptions: No Action metoprolol succinate 50 mg tablet extended release 24 hr 50 mg PO QAM aspirin 81 mg tablet,delayed release (DR/EC) 162 mg PO DAILY rosuvastatin 20 mg tablet 20 mg PO QAM levothyroxine 175 mcg tablet 175 mcg PO DAILYBB clobetasol 0.05 % cream 1 applic TOPICAL BID PRN (Reason: Skin Irritation) melatonin 3 mg Tablet 3 mg PO HS Rx Instructions: otc unable to verify acetaminophen 650 mg Tablet Extended Release 650 mg PO Q8H PRN (Reason: Pain) Rx Instructions: otc unable to verify famotidine 20 mg tablet 20 mg PO BID amlodipine 10 mg tablet 10 mg PO QAM fluoxetine 20 mg capsule 40 mg PO QAM tadalafil [Cialis] 5 mg Tablet 5 mg PO UD Rx Instructions: no record with pharmacy Levemir FlexTouch U100 Insulin 100 unit/mL (3 mL) insulin pen 34 unit SUBCUT UD MDD 50 UNITS Rx Instructions: last filled in oct 08 2023, per pharmacy the Lantus may have replaced Levemir 34 units subcut hs INCREASE BY 2 UNITS PER DAY UNTIL FASTING BSG <150, THEN INCREASE BY 1 UNIT DAILY UNITL FASTING BSG ARE <120 DAILY, MAX 50 UNITS. Ozempic 2 mg/dose (8 mg/3 mL) pen injector 0.75 mg SUBCUT UD Rx Instructions: march of 2023 NewFlora 10 billion cell capsule 100 mg PO BID Qty: 60 0RF Rx Instructions: otc unable to verify Take twice daily for 30 days. latanoprost 0.005 % drops 1 drp ophthalmic (eye) HS lisinopril 20 mg tablet 20 mg PO QAM bupropion HCl 150 mg tablet extended release 24 hr 150 mg PO QAM insulin glargine [Lantus Solostar U-100 Insulin] 100 unit/mL (3 mL) insulin pen 40 unit SUBCUT UD Rx Instructions: titrating dose every 2 weeks until BG <180. MDD 50 U last filled december 16 2023 Referrals Referrals: Jennifer Jimenez, [Primary Care Provider] -
[2024-03-07] MEDS: HEPARIN SODIUM/DEXTROSE 25,000 UNITS/500 ML BAG IV SCH (15:06)
[2024-03-07] MEDS: HEPARIN SOD (PORCINE) 1000 UNIT/ML IV ONE ×2 (15:06→22:02)
[2024-03-07] MEDS: ASPIRIN 81 MG CHEW PO STA (15:09)
--- NOTE | 2024-03-07 15:09 | XRay Report ---
XR chest 1V portable CLINICAL HISTORY: neuro deficit, acute stroke suspected TECHNIQUE: Single frontal radiograph of the chest was obtained. Comparison: Comparison is made to chest radiograph 10/03/2023 FINDINGS: No lines and tubes are seen. Cardiomegaly is noted. The lungs are clear. No evidence of pleural effus ion or pneumothorax. IMPRESSION: No acute chest disease. Cardiomegaly is noted. ACT 112: Negative or not required by law. Electronically signed by: Jeremiah Keller M.D. 03/07/2024 3:08 PM
[2024-03-07] MEDS: Heparin IV Adult Wt-Based Low-Dose w/ INITIAL Bolus Protocol IV STA (15:10)
[2024-03-07] MEDS ORDERED: GLUCAGON FOR INJ 1 MG VIAL SQ PRN (15:46)
[2024-03-07] MEDS ORDERED: CARBOHYDRATES FOR HYPOGLYCEMIA PO PRN (15:46)
[2024-03-07] MEDS ORDERED: GLUCOSE 10 TAB/TUBE PO PRN (15:46)
[2024-03-07] MEDS ORDERED: GLUCOSE 40% GEL 15 GM TUBE PO PRN (15:46)
[2024-03-07] MEDS ORDERED: NITROGLYCERIN SL 0.4 MG/TAB TAB SL PRN (15:46)
[2024-03-07] MEDS ORDERED: DEXTROSE 50% 50 ML SYRINGE IV PRN (15:46)
[2024-03-07] MEDS ORDERED: PHARMACY GLYCEMIC MGMT CONSULT PRN (15:46)
--- NOTE | 2024-03-07 15:57 | History & Physical Report ---
Date of Service March 07, 2024 Assessment & Plan (1) Non-ST elevation IN (NSTEMI): Plan: Patient presented to the hospital with left arm tingling and chest discomfort. Reports that he stopped taking all of his medication except for insulin about a month ago as it was increasingly difficult for him to manage the medication. In the ED, on presentation to the ED, patient was hypertensive, saturating well on room air. Stroke alert was called due to left arm numbness. Patient was neurologically intact. CT headno acute finding CTA head and neck-t did not show any acute findings EKG personal reviewed; normal sinus rhythm with inverted T waves in inferior lat eral leads Patient's high sensitive troponin was elevated to 1225. Trend high sensitive troponin. Repeat EKG patient has recurrent chest pain Started on heparin drip, continue Restarted on aspirin, rosuvastatin. lipid panel tomorrow a.m. Restarted on metoprolol and lisinopril Telemonitoring Obtain echocardiogram Cardiology consult N.p.o. from midnight for possible intervention for a.m. Hypertension Not taking medication presently Restarted on metoprolol, lisinopril and amlodipine Type 2 diabetes mellitus Start insulin glargine and NovoLog Pharmacy on consult Hyperlipidemia Restarted on rosuvastatin Hypothyroidism Restarted on levothyroxine, repeat TSH GERD Pepcid, continue Mood disorder Started on bupropion and Fluoxetine CHARLEEN- CPAP ordered for bedtime Discussed with patient's brother at bedside. Time spent evaluating patient, direct bedside care, chart review, placing orders, interpretation of diagnostic studies, discussion with consultants, patient, and family members, as well as other required patient management activities is 75 minutes Please note the above document was generated using voice recognition software. It may contain grammatical, syntax or spelling errors. 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 Left AMA at that time. Patient presented to the hospital with left arm tingling and chest discomfort. 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 He reports that he started to experience left arm numbness 6 hours prior to presentation. He also noted chest discomfort that is started around the same time. He denies any chest pain at this time. He reports shortness of breath While climbing stairs at baseline. He denies palpitation, fever, chills, sore throat, abdominal pain or urinary symptoms. He reports that he stopped taking all of his medication except for insulin about a month ago as it was increasingly difficult for him to manage the medication. In the ED, on presentation to the ED, patient was hypertensive, saturating well on room air. Stroke alert was called due to left arm numbness. Otherwise, patient was n eurologically intact. CT headno acute finding CTA head and neck-t did not show any acute findings EKG shows normal sinus rhythm with inverted T waves in inferior lateral leads Patient's high sensitive troponin was elevated to 1225. Patient was a started on heparin drip Patient was referred for admission for NSTEMI. Allergies Allergy/AdvReac Type Severity Reaction Status Date / Time doxycycline Allergy Intermediate HIVES Verified 06/13/22 18:39 Penicillins Allergy Intermediate RASH Verified 06/13/22 18:39 Macrolide Antibiotics Allergy Unknown UNKNOWN Verified 06/13/22 18:39 morphine AdvReac Intermediate GI UPSET Verified 06/13/22 18:39 Home Medications Medication Instructions Recorded Confirmed Type aspirin 81 mg tablet,delayed 162 mg PO DAILY 09/29/21 03/07/24 History release metoprolol succinate 50 mg 50 mg PO QAM 09/29/21 03/07/24 History tablet,extended release 24 hr rosuvastatin 20 mg tablet 20 mg PO QAM 09/29/21 03/07/24 History acetaminophen 650 mg 650 mg PO Q8H PRN Pain 06/13/22 03/07/24 History tablet,extended release amlodipine 10 mg tablet 10 mg PO QAM 06/13/22 03/07/24 History clobetasol 0.05 % topical cream 1 applic topical BID PRN Skin 06/13/22 03/07/24 History Irritation famotidine 20 mg tablet 20 mg PO BID 06/13/22 03/07/24 History fluoxetine 20 mg capsule 40 mg PO QAM 06/13/22 03/07/24 History insulin detemir U-100 100 unit/mL 34 unit subcut UD 06/13/22 03/07/24 History (3 mL) subcutaneous pen (Levemir FlexTouch U-100 Insulin) levothyroxine 175 mcg tablet 175 mcg PO DAILYBB 06/13/22 03/07/24 History melatonin 3 mg tablet 3 mg PO HS 06/13/22 03/07/24 History semaglutide 2 mg/dose (8 mg/3 mL) 0.75 mg subcut UD 06/13/22 03/07/24 History subcutaneous pen injector (Ozempic) tadalafil 5 mg tablet (Cialis) 5 mg PO UD 06/13/22 03/07/24 History Lactobacillus acidophilus 10 100 mg PO BID #60 caps 06/14/22 03/07/24 Rx billion cell capsule (NewFlora) bupropion HCl 150 mg 24 hr tablet, 150 mg PO QAM 03/07/24 03/07/24 History extended release insulin glargine 100 unit/mL (3 40 unit subcut UD 03/07/24 03/07/24 History mL) subcutaneous pen (Lantus Solostar U-100 Insulin) latanoprost 0.005 % eye drops 1 drp ophthalmic (eye) HS 03/07/24 03/07/24 History lisinopril 20 mg tablet 20 mg PO QAM 03/07/24 03/07/24 History Past Med/Surg History Problem List (Updated 03/07/24 @ 15:11 by Jensen Reed MD) Non-ST elevation IN (NSTEMI) (Acute) Phlegmonous cellulitis Hyponatremia (Acute) History of CVA (cerebrovascular accident) Morbid obesity DM2 (diabetes mellitus, type 2) Cellulitis (Acute) Depression HTN (hypertension) CHF (congestive heart failure) Morbid obesity with BMI of 50.0-59.9, adult Pancreatitis Cholangitis concurrent with and due to calculus of gallbladder Hyperlipidemia, unspecified Hypothyroidism, unspecified Obstructive sleep apnea (adult) (pediatric) Unspecified cerebral artery occlusion with cerebral infarction Medical History Hypertension Diabetes Social History Smoking Status: Never smoker Hx Alcohol Use: Yes Alcohol type: beer Hx Substance Use: No Preferred Language: Argentine Communication Ability: Effective Fire Investigation Manager Required: No Beliefs That Will Affect Care: None Current Living Situation: Alone Feels Safe at Home: Yes Assistive Devices: None Review of Systems Review of Systems: All systems reviewed & are unremarkable except as noted in Subjective Physical Exam Physical Exam: On physical examination; Constitutional: Alert oriented x 3; not in distress. Morbidly obese Respiratory: normal respiratory effort, lungs clear to auscultation, no wheeze, rales, rhonchi. Normal insp/exp effort, no accessory muscle use Cardiovascular: RRR, no murmur, no edema Vessels: no JVD or carotid bruit Abdomen: normal bowel sounds, soft, nontender, no hepatosplenomegaly Musculoskeletal: no cyanosis or clubbing, extremities motor strength 5/5 Skin: no rashes, warm and dry normal turgor Neurologic: PERRL, EOMI, accommodation nl, no face palsy, no dysarthria CN's II- XI intact bilaterally and moves all extremities.No focal neurological deficit Psychiatric: A+Ox3, euthymic affect Results & Data Results & Data Vital Signs (Past 12 Hours) Vital Signs Temp Pulse Pulse Resp BP BP Pulse Ox 03/07/24 14:46 87 18 143/95 H 96 03/07/24 14:00 90 12 161/104 H 99 03/07/24 13:09 94 H 03/07/24 13:06 37.0 C 95 H 17 166/113 H 94 O2 Del Method 03/07/24 14:46 03/07/24 14:00 Room Air 03/07/24 13:09 03/07/24 13:06 Room Air
[2024-03-07 16:37] LABS: Appearance Urine Clear (Clear); Bacteria Urine Automated None Seen (None Seen); Bilirubin Urine Negative (Negative); Blood Urine Negative (Negative); Cast Urine Automated 0-2 /lpf (0-2); Color Urine Yellow; Epithelial Cell Urine Auto 0-2 /hpf (0-2); Glucose Urine UA 3+ (Negative); Ketones Urine Negative (Negative); Leukocyte Esterase Urine Negative (Negative); Nitrite Urine Negative (Negative); Protein Urine 1+ (Negative); RBC Urine Automated 0-2 /hpf (0-2); Specific Gravity Urine > 1.045 (1.000-1.030); Urobilinogen Urine Negative (Negative); WBC Urine Automated 0-5 /hpf (0-5); pH Urine 6.5 (4.5-7.5)
[2024-03-07] MEDS: ROSUVASTATIN CALCIUM 20 MG TAB PO SCH (17:42)
[2024-03-07] MEDS: lisinopril 20 MG TAB PO SCH (17:42)
[2024-03-07] MEDS: METOPROLOL SUCC 50MG EXT REL TAB PO SCH (17:42)
[2024-03-07] MEDS: amLODIPine BESYLATE 5 MG TAB PO SCH (17:52)
[2024-03-07] MEDS: INSULIN ASPART PER UNIT CHARGE SC SCH (18:34)
[2024-03-07] MEDS: FAMOTIDINE 20 MG TAB PO SCH (19:24)
[2024-03-07] MEDS: LANTUS PER UNIT CHARGE SQ SCH (21:04)
[2024-03-07 21:22] LABS: ANTI-Xa, UFH(UnfractionatedHep 0.15 IU/ml (0.3-0.7)
--- NOTE | 2024-03-07 22:46 | Electrocardiogram Report ---
Test Reason : Blood Pressure : / mmHG Vent. Rate : 095 BPM Atrial Rate : 095 BPM P-R Int : 230 ms QRS Dur : 084 ms QT Int : 368 ms P-R-T Axes : 061 055 165 degrees QTc Int : 462 ms Sinus rhythm with 1st degree A-V block Prolonged QT Abnormal ECG When compared with ECG of 13-JUN-2022 18:38, ST now depressed in Anterolateral leads T wave inversion now evident in Inferior leads Inverted T waves have replaced nonspecific T wave abnormality in Lateral leads Confirmed by Slick Garcia ([id number]) on 03/07/2024 10:46:34 PM Referred By: Confirmed By:Slick Garcia
[2024-03-08] MEDS: LEVOTHYROXINE SODIUM 175 MCG TABLET PO SCH (04:08)
[2024-03-08 04:54] LABS: Basophils # (auto) 0.11 K/uL (0.00-0.20); Basophils % (auto) 1.1 %; Eosinophils # (auto) 0.28 K/uL (0.00-0.50); Eosinophils % (auto) 2.8 %; Hematocrit (blood only) 43.6 % (42.0-52.0); Hemoglobin 14.8 g/dl (14.0-18.0); Immature Granulocytes # (auto) 0.06 K/uL (0.01-0.20); Immature Granulocytes % (auto) 0.6 %; Lymphocytes % (auto) 17.9 %; Mean Corpuscular Hemoglobin 27.4 pg (25.0-34.0); Mean Corpuscular Hgb Conc 33.9 g/dL (32.0-36.0); Mean Corpuscular Volume 80.6 fL (80.0-100.0); Mean Platelet Volume 9.7 fL (9.4-12.4); Monocytes # (auto) 0.56 K/uL (0.11-0.59); Monocytes % (auto) 5.6 %; Neutrophils # (auto) 7.25 K/uL (1.40-6.50); Platelet Count 289 K/uL (130-400); RDW Coefficient of Variation 13.4 % (11.5-14.5); RDW Standard Deviation 38.6 fL (36.4-46.3); Red Blood Count 5.41 M/uL (4.70-6.10); White Blood Count 10.06 K/ul (4.8-10.8)
[2024-03-08 05:11] LABS: Albumin Globulin Ratio 1.2 (0.9-2); Albumin Level 3.7 gm/dl (3.4-5.0); BUN Creatinine Ratio 14.7 (10-20); Bilirubin,Total 0.4 mg/dl (0.2-1.0); Calcium 8.9 mg/dl (8.6-10.3); Chol HDL Ratio 5.3 (0-5); Creatinine Clr Calc Pharmacy 85.6 ml/min; Est GFR (African American) 81.1 ml/min; Globulin 3.2 gm/dl (2.5-4.0); Potassium 3.5 mmol/L (3.5-5.1); Total Protein 6.9 gm/dl (6.0-8.3)
[2024-03-08 05:24] LABS: Thyroid Stimulating Hormone 36.112 uIu/ml (0.300-4.500)
[2024-03-08 05:32] LABS: ANTI-Xa, UFH(UnfractionatedHep 0.28 IU/ml (0.3-0.7)
--- NOTE | 2024-03-08 06:59 | Electrocardiogram Report ---
Test Reason : Blood Pressure : / mmHG Vent. Rate : 071 BPM Atrial Rate : 071 BPM P-R Int : 264 ms QRS Dur : 100 ms QT Int : 496 ms P-R-T Axes : 050 052 121 degrees QTc Int : 538 ms Sinus rhythm with 1st degree A-V block Prolonged QT Abnormal ECG When compared with ECG of 07-MAR-2024 13:05, T wave inversion now evident in Anterior leads QT has lengthened Confirmed by Martinez Mcmahan ([id number]) on 03/08/2024 6:59:33 AM Referred By: REFERRED SELF Confirmed By:Tu Mcmahan
[2024-03-08 07:20] LABS: Estimated Average Glucose 286 mg/dl; Hemoglobin A1C 11.6 % (4.5-5.6)
[2024-03-08] MEDS: amLODIPine BESYLATE 5 MG TAB PO SCH (07:54)
[2024-03-08] MEDS: ASPIRIN 81 MG ECTAB PO SCH (07:54)
[2024-03-08] MEDS: buPROPion XL 150 MG TABCR PO SCH (07:55)
[2024-03-08] MEDS: FLUoxetine HCL 20 MG CAP PO SCH (07:55)
[2024-03-08] MEDS: valACYclovir HCL 500 MG TABLET PO SCH (08:11)
--- NOTE | 2024-03-08 09:35 | Cardiology Consultation ---
Date of Consultation March 08, 2024 Assessment & Plan (1) Non-ST elevation [place] (NSTEMI): 58-year-old male with several months of medication noncompliance presents initial chief complaint left hand/arm numbness. Noncontrast CT of the brain and followed by CT angiogram of the head and neck vessels without acute abnormality yesterday. Chest x-ray without acute abnormality. Initial EKG performed 03/07/2024 at 1305 revealed sinus rhythm 95 bpm with first- degree AV block, TN interval 230 ms, low amplitude T wave inversions in the inferior lateral leads suggestive of possible ischemia. The patient has had 2 additional tracings in the meantime, the most recent of which took place today at 4 AM with progression of the inferolateral T wave abnormalities suggestive of inferolateral and even perhaps anterolateral ischemia. No ST segment elevation. Initial high-sensitivity troponin was elevated at 1225 PG per mL and is since trended down to 1021.8 PG per mL as of 8 AM this morning. Patient with several brief episodes of intermittent Mobitz type II second-degree AV block, the most recent of which took place 4030 5 AM with 2 dropped QRS complexes, no prolonged bradycardia. There was however a 3-second pause observed at midnight. Patient with baseline evidence of conduction system disease with noted first-degree AV block, question if intermittent AV block is due to RCA territory ischemia or if related to obstructive sleep apnea. Echocardiogram reveals mild concentric left ventricular hypertrophy with a large sized inferior, posterior wall motion abnormality that extends from the basal segments of the apical segments with hypokinesis of the segments. The basal posterior wall is slightly more hypokinetic and perhaps even akinetic. The left ventricular systolic function is mildly reduced at 40 to 45%. Grade 2 diastolic dysfunction noted. No significant valvular disease. Recommendations: Repeat EKG now. If EKG continues to reveal no evidence of ST segment elevation, will plan on advancing the patient's diet and proceeding with nonemergent invasive coronary angiography tomorrow. If he has recurrent symptoms or more concerning EKG abnormalities, option to perform the study on a more emergent basis will be considered. The patient's recent history of medication nonadherence as well illustrated by his elevated TSH of 36 Micro international units per liter, and hemoglobin A1c of 11.6%. Continue aspirin 81 mg daily, metoprolol succinate 50 mg daily, lisinopril 20 mg daily, amlodipine 10 mg daily, rosuvastatin 20 mg daily for LDL level of 133 mg/dL at goal of less than 70 mg/dL, unfractionated heparin infusion. April Parker DO History of Present Illness Attending Physician: Abdullahi Weeks MD History of Present Illness Mr Corbin is a 58 year old male seen in cardiology consultation per the request of Dr Weeks for the evaluation of NSTEMI. The patient has a history of type 2 diabetes mellitus, hypertension, dyslipidemia, past stroke, untreated obstructive sleep apnea, obesity, and hypothyroidism. He states that he has been diabetic for 20 years. He stopped taking his medications completely several months ago. He notes that for the last few months he has had intermittent chest pains. Yesterday morning he had transient numbness of his left hand and left arm. He was concerned that this was a strokelike symptom. He also had recurrent chest pressure onset in the morning yesterday. He was found to have an abnormal EKG with changes suggestive of inferior and lateral ischemia, and an elevated high-sensitivity troponin. He was admitted to the telemetry unit. His home medications were resumed including aspirin and statin therapy, and he was placed on unfractionated heparin infusion. During my assessment this morning in room 240-2, the patient was resting comfortably and I had to wake him from sleep to discuss things with him. He states his chest discomfort has resolved at present and he has no acute complai nts. 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 [employer] Non-smoker Family History: Denies family history of ischemic heart disease Allergies Allergy/AdvReac Type Severity Reaction Status Date / Time doxycycline Allergy Intermediate HIVES Verified 06/13/22 18:39 Penicillins Allergy Intermediate RASH Verified 06/13/22 18:39 Macrolide Antibiotics Allergy Unknown UNKNOWN Verified 06/13/22 18:39 morphine AdvReac Intermediate GI UPSET Verified 06/13/22 18:39 Home Medications Medication Instructions Recorded Confirmed Type aspirin 81 mg tablet,delayed 162 mg PO DAILY 09/29/21 03/07/24 History release metoprolol succinate 50 mg 50 mg PO QAM 09/29/21 03/07/24 History tablet,extended release 24 hr rosuvastatin 20 mg tablet 20 mg PO QAM 09/29/21 03/07/24 History acetaminophen 650 mg 650 mg PO Q8H PRN Pain 06/13/22 03/07/24 History tablet,extended release amlodipine 10 mg tablet 10 mg PO QAM 06/13/22 03/07/24 History clobetasol 0.05 % topical cream 1 applic topical BID PRN Skin 06/13/22 03/07/24 History Irritation famotidine 20 mg tablet 20 mg PO BID 06/13/22 03/07/24 History fluoxetine 20 mg capsule 40 mg PO QAM 06/13/22 03/07/24 History insulin detemir U-100 100 unit/mL 34 unit subcut UD 06/13/22 03/07/24 History (3 mL) subcutaneous pen (Levemir FlexTouch U-100 Insulin) levothyroxine 175 mcg tablet 175 mcg PO DAILYBB 06/13/22 03/07/24 History melatonin 3 mg tablet 3 mg PO HS 06/13/22 03/07/24 History semaglutide 2 mg/dose (8 mg/3 mL) 0.75 mg subcut UD 06/13/22 03/07/24 History subcutaneous pen injector (Ozempic) tadalafil 5 mg tablet (Cialis) 5 mg PO UD 06/13/22 03/07/24 History Lactobacillus acidophilus 10 100 mg PO BID #60 caps 06/14/22 03/07/24 Rx billion cell capsule (NewFlora) bupropion HCl 150 mg 24 hr tablet, 150 mg PO QAM 03/07/24 03/07/24 History extended release insulin glargine 100 unit/mL (3 40 unit subcut UD 03/07/24 03/07/24 History mL) subcutaneous pen (Lantus Solostar U-100 Insulin) latanoprost 0.005 % eye drops 1 drp ophthalmic (eye) HS 03/07/24 03/07/24 History lisinopril 20 mg tablet 20 mg PO QAM 03/07/24 03/07/24 History Patient History Medical History Hypertension Diabetes Social History Smoking Status: Never smoker Hx Alcohol Use: Yes Alcohol type: beer Hx Substance Use: No Preferred Language: Greenlandic Communication Ability: Effective Lace Sewer Required: No Beliefs That Will Affect Care: None Current Living Situation: Alone Other Information That Helps Us Care for You: No Feels Safe at Home: Yes Safety Concerns: Feels Safe At This Time Assistive Devices: Denture - Upper and Denture - Lower Review of Systems Review of Systems: All systems reviewed & are unremarkable except as noted in HPI & below Physical Exam Physical Exam: General: no acute distress and stated age Eyes: conjunctiva are pink and non-injected, sclera clear Neck: normal jugular venous pulse, no hepatojugular reflux Chest: normal shape and normal respiratory effort Lungs: clear to auscultation and percussion Cardiac Exam: - regular heart sounds, no murmurs, rubs, or gallops, no jugular venous distention Abdomen: abdomen soft, non-tender, no abnormal masses and no hepatosplenomegaly Musculoskeletal: no gait disturbance, no weakness Extremities: no edema and no cyanosis Neuro:awake, conversant, follows commands, no focal motor deficits Psych: appropriate affect and insight. Results & Data Vital Signs (Past 12 Hours) Vital Signs Temp Pulse Pulse Resp BP Pulse Ox O2 Del Method 03/08/24 07:22 36.6 C 93 H 18 145/93 H 94 Room Air 03/08/24 03:29 36.7 C 73 20 118/69 93 Room Air 03/07/24 22:41 36.6 C 79 20 100/66 94 Room Air 03/07/24 22:00 70 Laboratory Results Cardiac Enzymes 03/07/24 03/07/24 03/07/24 Range/Units 13:22 16:08 20:31 AST 13 (13-39) U/L Troponin I High Sens 1225.7 H* 1268.9 H* 1202.2 H* (0-20) pg/ml 03/08/24 03/08/24 Range/Units 03:45 08:02 AST 16 (13-39) U/L Troponin I High Sens 1019.6 H* 1021.8 H* (0-20) pg/ml Coagulation 03/07/24 Range/Units 13:22 PT 11.1 (9.0-12.0) Seconds APTT 27 (21-31) Seconds Lipids 03/08/24 Range/Units 03:45 Triglycerides 123 (0-150) mg/dl Cholesterol 195 (0-200) mg/dl HDL Cholesterol 37 mg/dl Cholesterol/HDL Ratio 5.3 H (0-5) CBC 03/07/24 03/08/24 Range/Units 13:22 03:45 WBC 8.12 10.06 (4.8-10.8) K/ul RBC 5.27 5.41 (4.70-6.10) M/uL Hgb 14.3 14.8 (14.0-18.0) g/dl Hct 41.8 L 43.6 (42.0-52.0) % Plt Count 263 289 (130-400) K/uL Neut # (Auto) 6.08 7.25 H (1.40-6.50) K/uL Lymph # (Auto) 1.25 1.80 (1.20-3.40) K/uL Mclennan # (Auto) 0.38 0.56 (0.11-0.59) K/uL Eos # (Auto) 0.29 0.28 (0.00-0.50) K/uL Baso # (Auto) 0.10 0.11 (0.00-0.20) K/uL Comprehensive Metabolic Panel 03/07/24 03/08/24 Range/Units 13:22 03:45 Sodium 130 L 132 L (136-145) mmol/L Potassium 4.3 3.5 (3.5-5.1) mmol/L Chloride 97 L 98 (98-107) mmol/L Carbon Dioxide 26 25 (21-32) mmol/L BUN 14 17 (6-23) mg/dl Creatinine 1.10 1.16 (0.6-1.4) mg/dl Glucose 294 H 117 H (70-99(Fasting)) mg/dl Calcium 8.7 8.9 (8.6-10.3) mg/dl AST 13 16 (13-39) U/L ALT 12 10 (7-52) U/L Alkaline Phosphatase 91 75 (34-104) U/L Total Protein 6.9 6.9 (6.0-8.3) gm/dl Albumin 3.7 3.7 (3.4-5.0) gm/dl Intake and Output 03/07/24 03/08/24 03/08/24 22:59 06:59 14:59 Intake Total 378.667 / 587.134 180.55 / 587.134 27.917 / 27.917 Balance 378.667 / 587.134 180.55 / 587.134 27. / Intake: IV 138.667 / 347.134 180.55 / 347.134 27. / . Heparin Sodium/Dextrose 25,000 138.667 / 347.134 180.55 / 347.134 27.7 / .7 units In 500 ml @ 1,150 UNITS/ HR 23 mls/hr IV .[id number] [facility] Rx #:[id number] Oral 240 / 240 Other: Other Intake Source npo Weight 124.1 kg 121.6 kg Weight Measurement Method Built in [facility] Standing Scale
--- NOTE | 2024-03-08 10:15 | Communication Note ---
Date of Service: March 08, 2024 Repeat EKG with stable findings inferior lateral ischemia. Sinus rhythm present. Hemodynamically stable. No symptoms of angina present. Advance diet. Make n.p.o. after midnight for tentative cardiac catheterization 03/09/2024. Case discussed with Dr Weeks. Beatrice Parker DO
[2024-03-08 10:42] LABS: ANTI-Xa, UFH(UnfractionatedHep 0.25 IU/ml (0.3-0.7)
--- NOTE | 2024-03-08 11:12 | Electrocardiogram Report ---
Test Reason : Blood Pressure : / mmHG Vent. Rate : 074 BPM Atrial Rate : 074 BPM P-R Int : 226 ms QRS Dur : 098 ms QT Int : 448 ms P-R-T Axes : 004 051 129 degrees QTc Int : 497 ms Sinus rhythm with 1st degree A-V block Prolonged QT Abnormal ECG When compared with ECG of 08-MAR-2024 04:18, No significant change was found Confirmed by Martinez Mcmahan ([id number]) on 03/08/2024 11:12:05 AM Referred By: REFERRED SELF Confirmed By:Tu Mcmahan
[2024-03-08] MEDS: INSULIN ASPART PER UNIT CHARGE ONE ×2 (12:42→16:46)
--- NOTE | 2024-03-08 14:10 | Hospitalist Progress Note ---
Date of Service March 08, 2024 Assessment & Plan (1) Non-ST elevation CT (NSTEMI): Plan: Patient presented to the hospital with left arm tingling sensation and chest discomfort. Reports that he stopped taking all of his medication except for insulin about a month ago as it was increasingly difficult for him to manage the medication. On presentation to the ED, patient was hypertensive, saturating well on room air. Stroke alert was called due to left arm numbness. Patient was neurologically intact. CT headno acute finding CTA head and neck-t did not show any acute findings EKG personal reviewed; normal sinus rhythm with inverted T waves in inferior lateral leads High sensitive troponin - 1225 > 1268> 1202 > 1021 Echocardiogram shows EF of 40 to 45%; large size apical, inferior and posterior wall and posterior wall motion abnormality Discussed with cardiology;Repeat EKG if patient has recurrent chest pain Continue on heparin drip Continue on aspirin, rosuvastatin, metoprolol and lisinopril Telemonitoring Hypertension Not taking medication prior to admission Restarted on metoprolol, lisinopril and amlodipine, continue Type 2 diabetes mellitus Start insulin glargine and NovoLog Pharmacy on consult Hyperlipidemia Restarted on rosuvastatin, continue Hypothyroidism Restarted on levothyroxine, TSH elevated; repeat TSH in 6 weeks. GERD Pepcid, continue Mood disorder Restarted on bupropion and Fluoxetine CHARLEEN- CPAP ordered for bedtime, patient not able to tolerate Time spent evaluating patient, direct bedside care, chart review, placing orders, interpretation of diagnostic studies, discussion with consultants, patient, and family members, as well as other required patient management activities is 50 minutes Please note the above document was generated using voice recognition software. It may contain grammatical, syntax or spelling errors. Any formal questions or concerns about the content, text or information contained within the body of this dictation should be directly addressed to the provider for clarification Admission and Anticipated Discharge Date Admission Date: March 07, 2024 Subjective Patient seen and examined at bedside. He denies any chest pain at this time. Telemetry showed 3-second pause at midnight He reports history of CHARLEEN; not able to tolerate the mask. Review of Systems Review of Systems: All systems reviewed & are unremarkable except as noted in Subjective Physical Exam Physical Exam: On physical examination; Constitutional: Alert oriented x 3; not in distress. Morbidly obese Respiratory: normal respiratory effort, lungs clear to auscultation, no wheeze, rales, rhonchi. Normal insp/exp effort, no accessory muscle use Cardiovascular: RRR, no murmur, no edema Vessels: no JVD or carotid bruit Abdomen: normal bowel sounds, soft, nontender, no hepatosplenomegaly Musculoskeletal: no cyanosis or clubbing, extremities motor strength 5/5 Skin: no rashes, warm and dry normal turgor Neurologic: PERRL, EOMI, accommodation nl, no face palsy, no dysarthria CN's II- XI intact bilaterally and moves all extremities.No focal neurological deficit Psychiatric: A+Ox3, euthymic affect Results & Data Results & Data Vital Signs (Past 12 Hours) Vital Signs Temp Pulse Pulse Resp BP Pulse Ox O2 Del Method 03/08/24 11:15 36.7 C 72 18 174/108 H 98 Room Air 03/08/24 08:00 76 03/08/24 08:00 Room Air 03/08/24 07:22 36.6 C 93 H 18 145/93 H 94 Room Air 03/08/24 03:29 36.7 C 73 20 118/69 93 Room Air
[2024-03-08] MEDS: NITROGLYCERIN 2% OINTMENT 30GM TUBE EXT SCH (14:20)
--- NOTE | 2024-03-08 14:43 | Pharmacy Report ---
Pharmacy Glycemic Short Note 2 - Date of Service March 08, 2024 - Glycemic Short BSG Results (Last 24 hours): 03/07/24 03/07/24 03/08/24 17:19 20:05 03:45 Glucose 117 H POC Glucose 219 H 150 H 03/08/24 03/08/24 03/08/24 04:52 07:11 11:10 Glucose POC Glucose 133 H 154 H 147 H OUTPATIENT ANTIDIABETIC REGIMEN: * Lantus 40-50 units SC HS HbA1c: 11.6% on 03/08/24 ASSESSMENT: * 58 y/o M admitted for NSTEMI. He has history of diabetes poorly controlled on basal insulin at home. Reportedly he recently stopped taking all his medications except his insulin but given high A1c, he may have been non- compliant on insulin as well. * Patient was admitted yesterday with BSG of 327 mg/l. Basal insulin 20 units BID was initiated. * BSGs trended down. Fasting BSG today was 154 mg/dl. BID basal insulin changed to once daily at HS for similar regimen as home. Ordered basal dose on a scale based on BSG at HS. * Novolog parameters ordered based on stress of 2. PLAN FOR INPATIENT GLYCEMIC CONTROL: * Basal insulin * Lantus 20/30/40 units SC scale based on BSG at HS * Bolus insulin * NovoLog per scale ACHS or Q6hrs while NPO * Goal Range: Low 110 mg/dL - High 140 mg/dL * Correction Factor: 20 mg/dL/unit * Nutritional / Prandial insulin per carb ratio of 1 unit per 6 grams CHO consumed
[2024-03-08 17:48] LABS: ANTI-Xa, UFH(UnfractionatedHep 0.22 IU/ml (0.3-0.7)
[2024-03-08] MEDS: LANTUS PER UNIT CHARGE SC SCH (20:39)
[2024-03-09 01:25] LABS: ANTI-Xa, UFH(UnfractionatedHep 0.37 IU/ml (0.3-0.7)
[2024-03-09 06:52] LABS: Basophils # (auto) 0.15 K/uL (0.00-0.20); Basophils % (auto) 1.5 %; Eosinophils # (auto) 0.34 K/uL (0.00-0.50); Eosinophils % (auto) 3.5 %; Hematocrit (blood only) 40.2 % (42.0-52.0); Hemoglobin 13.6 g/dl (14.0-18.0); Immature Granulocytes # (auto) 0.05 K/uL (0.01-0.20); Immature Granulocytes % (auto) 0.5 %; Lymphocytes # (auto) 1.89 K/uL (1.20-3.40); Lymphocytes % (auto) 19.2 %; Mean Corpuscular Hemoglobin 27.2 pg (25.0-34.0); Mean Corpuscular Hgb Conc 33.8 g/dL (32.0-36.0); Mean Corpuscular Volume 80.4 fL (80.0-100.0); Mean Platelet Volume 9.2 fL (9.4-12.4); Monocytes # (auto) 0.53 K/uL (0.11-0.59); Monocytes % (auto) 5.4 %; Neutrophils # (auto) 6.88 K/uL (1.40-6.50); Neutrophils % (auto) 69.9 %; Platelet Count 241 K/uL (130-400); RDW Coefficient of Variation 13.4 % (11.5-14.5); RDW Standard Deviation 39.2 fL (36.4-46.3); White Blood Count 9.84 K/ul (4.8-10.8)
[2024-03-09] MEDS: ACETAMINOPHEN 325 MG TAB PO PRN (07:14)
[2024-03-09 07:17] LABS: ANTI-Xa, UFH(UnfractionatedHep 0.37 IU/ml (0.3-0.7)
[2024-03-09 07:32] LABS: BUN Creatinine Ratio 17.9 (10-20); Calcium 8.7 mg/dl (8.6-10.3); Est GFR (African American) 84.7 ml/min; Potassium 3.8 mmol/L (3.5-5.1)
--- NOTE | 2024-03-09 08:06 | Electrocardiogram Report ---
Test Reason : Blood Pressure : / mmHG Vent. Rate : 069 BPM Atrial Rate : 069 BPM P-R Int : 220 ms QRS Dur : 100 ms QT Int : 476 ms P-R-T Axes : 000 055 131 degrees QTc Int : 510 ms Sinus rhythm with 1st degree A-V block Prolonged QT Abnormal ECG When compared with ECG of 08-MAR-2024 09:45, No significant change was found Confirmed by Eliud Benitez ([id number]) on 03/09/2024 8:06:00 AM Referred By: REFERRED SELF Confirmed By:Eliud Benitez
--- NOTE | 2024-03-09 08:40 | Pre Anesthesia Assessment ---
Date of Service March 09, 2024 Pre Sedation Assessment Vital Signs Temp Pulse Pulse Resp BP Pulse Ox O2 Del Method 03/09/24 07:47 71 14 151/98 H 96 Room Air 03/09/24 07:29 36.4 C L 68 18 129/86 91 Room Air 03/09/24 04:00 36.7 C 63 16 114/73 97 Room Air 03/09/24 00:13 Room Air 03/09/24 00:00 70 03/08/24 23:24 36.5 C 69 16 110/73 93 Room Air 03/08/24 19:12 36.6 C 69 18 110/71 92 Room Air 03/08/24 14:54 36.8 C 69 18 104/68 95 Room Air 03/08/24 11:15 36.7 C 72 18 174/108 H 98 Room Air Cardiovascular + regular rate and + regular rhythm + S1 normal and + S2 normal + femoral pulses present and + radial pulses present; no JVD no edema Respiratory normal respiratory effort, lungs clear to auscultation Pre-Sedation Airway Assessment Smoking Status: Never smoker Hx Sleep Apnea: Yes Short, Thick Neck: Yes Thyromental Distance: > or= 3.5 Finger Breadths Oral Cavity: + Dentures Mallampati Class: II ASA: ASA3 NPO Status Date of Last Intake of Fluids: 03/09/24 Time of Last Intake of Fluids: 07:00 Date of Last Intake of Solid Food: 03/08/24 Time of Last Intake of Solid Foods: 22:00 Procedure Planning Contraindications for Sedation: none Current Medications Reviewed: Yes Notes The planned sedation has been discussed with the patient. Informed Consent was obtained. I have identified the patient, determined the appropriateness of sedation and have assessed the patient immediately prior to the procedure. All medicine(s) and interventions are by my order.
--- NOTE | 2024-03-09 08:46 | Pharmacy Report ---
Pharmacy Glycemic Short Note 2 - Date of Service March 09, 2024 - Glycemic Short BSG Results (Last 24 hours): 03/08/24 03/08/24 03/08/24 11:10 16:24 20:10 Glucose POC Glucose 147 H 162 H 116 H 03/09/24 03/09/24 06:22 07:26 Glucose 112 H POC Glucose 110 H OUTPATIENT ANTIDIABETIC REGIMEN: * Lantus 40-50 units SC HS * Semaglutide HbA1c: 11.6% on 03/08/24 ASSESSMENT: 03/09 * Heparin in D5W continues. Patient NPO today for possible cardiac cath. Anticipate diet post-op. * AM fasting BSG in goal range. Will hold Lantus for this AM 2nd NPO. Will start to give higher dose this evening to compensate and to get patient back to HS administration reported as an outpatient * Post-prandial BSG's yesterday reasonable. No change to Novolog. 03/08 * 58 y/o M admitted for NSTEMI. He has history of diabetes poorly controlled on basal insulin at home. Reportedly he recently stopped taking all his medications except his insulin but given high A1c, he may have been non- compliant on insulin as well. * Patient was admitted yesterday with BSG of 327 mg/l. Basal insulin 20 units BID was initiated. * BSGs trended down. Fasting BSG today was 154 mg/dl. BID basal insulin changed to once daily at HS for similar regimen as home. Ordered basal dose on a scale based on BSG at HS. * Novolog parameters ordered based on stress of 2. PLAN FOR INPATIENT GLYCEMIC CONTROL: * Basal insulin * Lantus 30/40 units SC scale based on BSG at HS * Bolus insulin * NovoLog per scale ACHS or Q6hrs while NPO * Goal Range: Low 110 mg/dL - High 140 mg/dL * Correction Factor: 20 mg/dL/unit * Nutritional / Prandial insulin per carb ratio of 1 unit per 6 grams CHO consumed
[2024-03-09] MEDS: niCARdipine HCL INJ 2.5 MG/ML 10 ML AMP ONE (09:18)
[2024-03-09] MEDS: NITROGLYCERIN/D5W 100MCG/ML 20ML SYR ONE (09:19)
[2024-03-09] MEDS: HEPARIN (PORCINE) 1000 UNIT/ML 10 ML (CATH LAB USE ONLY) ONE (09:31)
[2024-03-09] MEDS: fentaNYL citrate PF 100 MCG/2 ML VIAL ONE (09:32)
[2024-03-09] MEDS: MIDAZOLAM HCL 1 MG/ML 2ML VIAL ONE (09:32)
[2024-03-09] MEDS: OPTIRAY 350 ONE (09:36)
--- NOTE | 2024-03-09 09:43 | Post Anesthesia Assessment ---
Date of Service March 09, 2024 Post Sedation Assessment Vital Signs Temp Pulse Pulse Resp BP Pulse Ox O2 Del Method 03/09/24 07:47 71 14 151/98 H 96 Room Air 03/09/24 07:29 36.4 C L 68 18 129/86 91 Room Air 03/09/24 04:00 36.7 C 63 16 114/73 97 Room Air 03/09/24 00:13 Room Air 03/09/24 00:00 70 03/08/24 23:24 36.5 C 69 16 110/73 93 Room Air 03/08/24 19:12 36.6 C 69 18 110/71 92 Room Air 03/08/24 14:54 36.8 C 69 18 104/68 95 Room Air 03/08/24 11:15 36.7 C 72 18 174/108 H 98 Room Air Recovery Score Activity: Moves 4 extremities Respiration: Deep Breath/Cough Circulation: +/-20% PreAnes Value Consciousness: Fully Awake Oxygen Saturation: > 92% On Room Air Discharge Sedation Level of Care: Phase I Post Sedation Plan On clinical assessment, the patient appears to have tolerated the sedation without complications. Patient is recovering as anticipated. Patient will continue to be monitored by nursing and may be discharged when sedation discharge criteria are met per below protocol. Upon Completions of procedure up to 15 minutes continue every 5 minute vital signs and the P.A.R. score; then discharge to a Phase I or Fast Track to Phase II per the following guidelines: * Discharge Patient to appropriate Phase II area if PAR is 8 or greater or return to pre- procedure baseline. The post - procedure orders will be as directed. * If PAR score is less than 8 or not return to pre-procedure baseline then patient will follow Phase I monitoring till PAR is reached for Phase II. The Phase I may be done in procedure room or may call to secure a Phase I area. * If naloxone or flumazenil are used for reversal, hold in Phase I for continued monitoring from when last reversal dose was given for a minimum of 60 minutes or longer pending the nurse and/or physician discretion of patient condition before discharge to Phase II. Please call the Sedation Physician to re-evaluate and complete post-note for discharge to Phase II area. Do NOT discharge from procedure sedation or Phase 1 until post- sedation evaluation note is complete by procedure /sedation MD Sedation Discharge Instructions to be given to the patient at discharge to home.
--- NOTE | 2024-03-09 09:53 | Cardiac Catheterization ---
Cardiac Cath Procedure Brief Procedure Date March 09, 2024 Pre-Procedure Diagnosis Pre-Procedure Diagnosis: Non STEMI AUC Score AUC Score: 8 Post-Procedure Diagnosis Post-Procedure Diagnosis: Severe CAD Procedure(s) Performed Procedure(s) Performed: Coronary Angiography and Left Heart Cath Mechanical Product Engineer Antoine Hurd MD Stagecraft Teacher(s) Mary Ann Levy Estimated Blood Loss Estimated Blood Loss: <15cc Medication(s) Medication(s): Fentanyl (12.5 mcg IV), Heparin (4000 units IV), Lidocaine 1% (Local infiltration access site), Nicardipine (250 mcg intra-arterial after arterial sheath insertion) and Versed (1 mg IV) Preliminary Findings Impression: Multivessel severe coronary artery disease with acute occlusion of the right coronary artery Procedure: Left heart catheterization, coronary angiography via right radial access Catheters: 6 Libyan long glide radial sheath, 5 [place]yan [place] (unsuccessful) 5 Libyan 3 DRC, 5 Libyan JL 4, 5 Libyan JL 5, 5 Libyan AL 2, 5 Libyan JL 3. Bovine arch with high takeoff of left main Recommendations Recommendations: Medical Therapy and/or Counseling Specimens Specimens: None Fluids (cc crystalloids) Fluids (cc crystalloids): 100 Anesthesia Start time: 54, stop time: Procedural Complication(s) None Disposition PCU
[2024-03-09] MEDS: SODIUM CHLORIDE 0.9% 1,000 ML IV SCH (12:05)
--- NOTE | 2024-03-09 12:56 | Electrocardiogram Report ---
Test Reason : Blood Pressure : / mmHG Vent. Rate : 076 BPM Atrial Rate : 076 BPM P-R Int : 260 ms QRS Dur : 100 ms QT Int : 446 ms P-R-T Axes : 049 050 133 degrees QTc Int : 501 ms Sinus rhythm with 1st degree A-V block Prolonged QT Abnormal ECG When compared with ECG of 08-MAR-2024 04:18, No significant change was found Confirmed by Eliud Benitez ([id number]) on 03/09/2024 12:55:29 PM Referred By: REFERRED SELF Confirmed By:Eliud Benitez
--- NOTE | 2024-03-09 13:20 | Cardiac Catheterization ---
Cardiac Cath Procedure Full Procedure Date March 09, 2024 Pre-Procedure Diagnosis Pre-Procedure Diagnosis: Non STEMI AUC Score AUC Score: 8 Post-Procedure Diagnosis Post-Procedure Diagnosis: Severe CAD Procedure(s) Performed Procedure(s) Performed: Coronary Angiography and Left Heart Cath Sql Server Dba Developer Antoine Hurd MD Coremaking Machine Operator(s) Mary Ann Levy Estimated Blood Loss Estimated Blood Loss: <15cc Medication(s) Medication(s): Fentanyl (12.5 mcg IV), Heparin (4000 units IV), Lidocaine 1% (Local infiltration access site), Nicardipine (250 mcg intra-arterial after arterial sheath insertion) and Versed (1 mg IV) Summary of Findings Impression: Severe multivessel coronary artery disease with acute occlusion of the right coronary artery. Poor surgical targets present Elevated left end-diastolic pressure Procedure: Left heart catheterization, coronary angiography via right radial access Catheters: 6 Turkmen long glide radial sheath, 5 Turk[place] (unsuccessful) 5 Turkmen 3 DRC, 5 Turkmen JL 4, 5 Turkmen JL 5, 5 Turkmen AL 2, 5 Turkmen JL 3. Bovine arch with high takeoff of left main Coronary angiography: Right dominant Left Main: Long with high takeoff, mild calcification with moderate irregularities no obstruction Left anterior descending: Short type II vessel giving rise to a large bi furcating diagonal in its proximal third. The left anterior sending is diffusely diseased in its mid and distal portions with serial stenoses of 80 and 90% severity with distal vessel caliber very thin. The diagonal branch parallels the left anterior descending. It is narrowed by 90% prior to bifurcating into 2 modest caliber vessels Ramus intermedius: Moderate caliber vessel with distal 90% stenosis Left circumflex: Nondominant. It consists of an obtuse marginal branch and a posterolateral/atrial branch. It is narrowed by 70% in its proximal portion. Circumflex obtuse marginal is diffusely diseased in its proximal portion narrowing serially by 80% over long segment Right coronary artery: Dominant distribution with diffuse disease in its proximal midportion with 100% occlusion at the acute margin. Distal vessel with very faint collateral filling only LV angiography: Not performed, elevated left end-diastolic pressure, 40 Hemodynamics Rest Ao:: 123/77/90 Final Ao: 132/98/140 LV: 127/39/40 Recommendations Recommendations: Medical Therapy and/or Counseling and Management Recommendatons (Review for surgical revascularization) Specimens Specimens: None Radiation Exposure (mGy) 2679 Contrast (mls) 150 Fluids (cc crystalloids) Fluids (cc crystalloids): 100 Anesthesia Start time: 54, stop time: 39 Procedural Complication(s) None Disposition PCU I attest to the content of the Intraoperative Record and any orders documented therein. Any exceptions are noted below. ACC Data: Cutter Operator Helper Cardiac Status Clinical evaluation leading to the procedure 58-year-old presenting with multiple days duration of left shoulder discomfort and hand tingling/pressure with elevated troponin. Echocardiogram with extensive inferoposterior infarct CAD Presenation: Non STEMI Anginal Classification: CCS IV Cardiogenic Shock within 24 Hours: No Cardiac Arrest within 24 Hours: No Imaging Studies Past 6 Months: Yes Stress Studies Past 6 Months: No Standard Exercise Test: No Stress Echocardiogram: No Stress Testing w/SPECT MPI: No Cardiac CTA: No Coronary Anatomy Dominant: Right Left Main (% Stenosis): Normal LAD (% Stenosis): Proximal (30), Mid (80,90,90) and Distal (Thin) D1 (% Stenosis): Proximal (90) Circumflex (% Stenosis): Proximal (80) and Mid (90.90) RCA (% Stenosis): Proximal (Serial 30%), Mid (Diffuse disease) and Distal (100% acute margin) Left Ventricular Angiography EF (%): N/A Diagnostic Physicians Name: Antoine Hurd MD Closure Device Percutaneous Entry Location: Radial Closure Device: Radial Band Recommendations: Medical Therapy and/or Counseling and Management Recommendatons (Review for surgical revascularization)
--- NOTE | 2024-03-09 13:47 | Cardiology Progress Note ---
Date of Service March 09, 2024 Assessment & Plan (1) Non-ST elevation [place] (NSTEMI): Plan: 58-year-old male with several months of medication noncompliance presents initial chief complaint left hand/arm numbness. Noncontrast CT of the brain and followed by CT angiogram of the head and neck vessels without acute abnormality yesterday. Chest x-ray without acute abnormality. Initial EKG performed 03/07/2024 at 1305 revealed sinus rhythm 95 bpm with first- degree AV block, LA interval 230 ms, low amplitude T wave inversions in the inferior lateral leads suggestive of possible ischemia. The patient has had 2 additional tracings in the meantime, the most recent of which took place today at 4 AM with progression of the inferolateral T wave abnormalities suggestive of inferolateral and even perhaps anterolateral ischemia. No ST segment elevation. Initial high-sensitivity troponin was elevated at 1225 PG per mL and is since trended down to 1021.8 PG per mL as of 8 AM this morning. Patient with several brief episodes of intermittent Mobitz type II second-degree AV block, the most recent of which took place 4030 5 AM with 2 dropped QRS complexes, no prolonged bradycardia. There was however a 3-second pause observed at midnight. Patient with baseline evidence of conduction system disease with noted first-degree AV block, question if intermittent AV block is due to RCA territory ischemia or if related to obstructive sleep apnea. Echocardiogram reveals mild concentric left ventricular hypertrophy with a large sized inferior, posterior wall motion abnormality that extends from the basal segments of the apical segments with hypokinesis of the segments. The basal posterior wall is slightly more hypokinetic and perhaps even akinetic. The left ventricular systolic function is mildly reduced at 40 to 45%. Grade 2 diastolic dysfunction noted. No significant valvular disease. 03/09/2024 Patient underwent diagnostic coronary angiography as evaluation of above. Presented with non-ST segment elevation myocardial infarction with stuttering pain with long duration. Recent discontinuation of antianginal medical therapies Coronary angiography demonstrates severe multivessel coronary disease with poor surgical targets. Acute culprit appears to be occlusion of the right coronary artery at the acute margin. Plan: Continue current medical therapies with single dose of furosemide this evening Will refer images for review by surgical team with very limited distal targets available Will reduce amlodipine dosing and add an oral nitrate. Continue metoprolol succinate, lisinopril, rosuvastatin at increased dose. Medical management including treatment of underlying diabetes and thyroid issues Admission and Anticipated Discharge Date Admission Date: March 07, 2024 Subjective Patient was seen and examined both prior to and after diagnostic cardiac catheterization. No further chest pain or discomfort no dyspnea at rest. No bleeding issues right radial band in place postcardiac catheterization intact Review of Systems Review of Systems: All systems reviewed & are unremarkable except as noted in Subjective Physical Exam Constitutional: + obese; no acute distress ENMT: external ear and nose normal, oropharynx normal Neck: trachea midline, no thyromegaly + thick neck Respiratory: normal respiratory effort, lungs clear to auscultation Cardiovascular: Rate/Rhythm: regular rate and regular rhythm Heart Sounds: normal S1 and normal S2; no murmur Vessels: no JVD Extremities: + edema Gastrointestinal (Abdomen): normal bowel sounds, soft, nontender, no hepatosplenomegaly Musculoskeletal: no cyanosis or clubbing, extremities motor strength 5/5 Psychiatric: A+Ox3, euthymic affect Results & Data Vital Signs (Past 12 Hours) Vital Signs Temp Pulse Pulse Resp BP Pulse Ox O2 Del Method 03/09/24 10:29 36.4 C L 68 17 131/88 91 Room Air 03/09/24 10:28 71 135/89 03/09/24 10:02 68 12 147/98 H 97 Room Air 03/09/24 09:47 72 14 152/96 H 97 Room Air 03/09/24 09:43 67 133/91 03/09/24 08:00 68 03/09/24 08:00 Room Air 03/09/24 07:47 71 14 151/98 H 96 Room Air 03/09/24 07:29 36.4 C L 68 18 129/86 91 Room Air 03/09/24 04:00 36.7 C 63 16 114/73 97 Room Air Laboratory Results Laboratory Results - last 24 hr 03/08/24 03/08/24 03/08/24 16:24 16:59 20:10 WBC RBC Hgb Hct MCV MCH MCHC RDW Std Deviation RDW Coeff of Oziel Plt Count MPV Immature Gran % (Auto) Neut % (Auto) Lymph % (Auto) Garvin % (Auto) Eos % (Auto) Baso % (Auto) Neut # (Auto) Lymph # (Auto) Garvin # (Auto) Eos # (Auto) Baso # (Auto) Immature Gran # (Auto) Heparin Anti-Xa, Unfract 0.22 L Sodium Potassium Chloride Carbon Dioxide Anion Gap BUN Creatinine Est Cr Clr Drug Dosing Est GFR ( Amer) Est GFR (Non-Af Amer) BUN/Creatinine Ratio Glucose POC Glucose 162 H 116 H Calcium 03/09/24 03/09/24 03/09/24 00:47 06:22 07:26 WBC 9.84 RBC 5.00 Hgb 13.6 L Hct 40.2 L MCV 80.4 MCH 27.2 MCHC 33.8 RDW Std Deviation 39.2 RDW Coeff of Oziel 13.4 Plt Count 241 MPV 9.2 L Immature Gran % (Auto) 0.5 Neut % (Auto) 69.9 Lymph % (Auto) 19.2 Garvin % (Auto) 5.4 Eos % (Auto) 3.5 Baso % (Auto) 1.5 Neut # (Auto) 6.88 H Lymph # (Auto) 1.89 Garvin # (Auto) 0.53 Eos # (Auto) 0.34 Baso # (Auto) 0.15 Immature Gran # (Auto) 0.05 Heparin Anti-Xa, Unfract 0.37 0.37 Sodium 132 L Potassium 3.8 Chloride 98 Carbon Dioxide 29 Anion Gap 5 BUN 20 Creatinine 1.12 Est Cr Clr Drug Dosing 88.0 Est GFR ( Amer) 84.7 Est GFR (Non-Af Amer) 73.0 BUN/Creatinine Ratio 17.9 Glucose 112 H POC Glucose 110 H Calcium 8.7 03/09/24 11:13 WBC RBC Hgb Hct MCV MCH MCHC RDW Std Deviation RDW Coeff of Oziel Plt Count MPV Immature Gran % (Auto) Neut % (Auto) Lymph % (Auto) Garvin % (Auto) Eos % (Auto) Baso % (Auto) Neut # (Auto) Lymph # (Auto) Garvin # (Auto) Eos # (Auto) Baso # (Auto) Immature Gran # (Auto) Heparin Anti-Xa, Unfract Sodium Potassium Chloride Carbon Dioxide Anion Gap BUN Creatinine Est Cr Clr Drug Dosing Est GFR ( Amer) Est GFR (Non-Af Amer) BUN/Creatinine Ratio Glucose POC Glucose 113 H Calcium
--- NOTE | 2024-03-09 14:19 | Hospitalist Progress Note ---
Date of Service March 09, 2024 Assessment & Plan (1) Non-ST elevation [place] (NSTEMI): Plan: Patient presented to the hospital with left arm tingling sensation and chest discomfort. Reports that he stopped taking all of his medication except for insulin about a month ago as it was increasingly difficult for him to manage the medication. On presentation to the ED, patient was hypertensive, saturating well on room air. Stroke alert was called due to left arm numbness. Patient was neurologically intact. CT headno acute finding CTA head and neck-t did not show any acute findings EKG personal reviewed; normal sinus rhythm with inverted T waves in inferior lateral leads High sensitive troponin - 1225 > 1268> 1202 > 1021 Echocardiogram shows EF of 40 to 45%; large size apical, inferior and posterior wall and posterior wall motion abnormality Patient was treated with heparin drip for an NSTEMI. He underwent diagnostic left heart catheterization on March 09, 2024; found to have severe multivessel coronary artery disease; acute culprit appears to be occlusion of right coronary artery at the acute margin Images to be reviewed by surgical team. Continue metoprolol, lisinopril, rosuvastatin. Amlodipine dose decreased with addition of oral nitrate. Continue telemonitoring Hypertension Not taking medication prior to admission Restarted on metoprolol, lisinopril. Amlodipine dose reduced to 5 mg once a day; Imdur added Type 2 diabetes mellitus Start insulin glargine and NovoLog Pharmacy on consult Hyperlipidemia Rosuvastatin dose increased to 40 mg once a day Hypothyroidism Restarted on levothyroxine, TSH elevated; repeat TSH in 6 weeks. GERD Pepcid, continue Mood disorder Restarted on bupropion and Fluoxetine CHARLEEN- CPAP ordered for bedtime, patient not able to tolerate Time spent evaluating patient, direct bedside care, chart review, placing orders, interpretation of diagnostic studies, discussion with consultants, patient, and family members, as well as other required patient management activities is 50 minutes Please note the above document was generated using voice recognition software. It may contain grammatical, syntax or spelling errors. Any formal questions or concerns about the content, text or information contained within the body of this dictation should be directly addressed to the provider for clarification Admission and Anticipated Discharge Date Admission Date: March 07, 2024 Subjective Patient seen and examined at bedside Is lying in the bed comfortably; not in distress. He denies any chest pain at this time Review of Systems Review of Systems: All systems reviewed & are unremarkable except as noted in Subjective Physical Exam Physical Exam: On physical examination; Constitutional: Alert oriented x 3; not in distress. Morbidly obese Respiratory: normal respiratory effort, lungs clear to auscultation, no wheeze, rales, rhonchi. Normal insp/exp effort, no accessory muscle use Cardiovascular: RRR, no murmur, no edema Vessels: no JVD or carotid bruit Abdomen: normal bowel sounds, soft, nontender, no hepatosplenomegaly Musculoskeletal: no cyanosis or clubbing, extremities motor strength 5/5 Skin: no rashes, warm and dry normal turgor Neurologic: PERRL, EOMI, accommodation nl, no face palsy, no dysarthria CN's II- XI intact bilaterally and moves all extremities.No focal neurological deficit Psychiatric: A+Ox3, euthymic affect Results & Data Results & Data Vital Signs (Past 12 Hours) Vital Signs Temp Pulse Pulse Resp BP Pulse Ox O2 Del Method 03/09/24 10:29 36.4 C L 68 17 131/88 91 Room Air 03/09/24 10:28 71 135/89 03/09/24 10:02 68 12 147/98 H 97 Room Air 03/09/24 09:47 72 14 152/96 H 97 Room Air 03/09/24 09:43 67 133/91 03/09/24 08:00 68 03/09/24 08:00 Room Air 03/09/24 07:47 71 14 151/98 H 96 Room Air 03/09/24 07:29 36.4 C L 68 18 129/86 91 Room Air 03/09/24 04:00 36.7 C 63 16 114/73 97 Room Air
[2024-03-09] MEDS: FUROSEMIDE 40 MG TAB PO ONE (17:04)
[2024-03-09] MEDS: INSULIN ASPART PER UNIT CHARGE ONE ×3 (17:23→20:44)
[2024-03-10 07:36] LABS: BUN Creatinine Ratio 12.9 (10-20); Calcium 8.9 mg/dl (8.6-10.3); Est GFR (African American) 69.4 ml/min; Est GFR (Non-African American) 59.9 ml/min; Potassium 4.2 mmol/L (3.5-5.1)
[2024-03-10] MEDS: ROSUVASTATIN CALCIUM 20 MG TAB PO SCH (08:26)
[2024-03-10] MEDS: ISOSORBIDE MONO EXTENDED REL 30 MG TABCR PO SCH (08:27)
[2024-03-10] MEDS: amLODIPine BESYLATE 5 MG TAB PO SCH (08:27)
[2024-03-10] MEDS: INSULIN ASPART PER UNIT CHARGE SC SCH (08:38)
--- NOTE | 2024-03-10 12:30 | Cardiology Progress Note ---
Date of Service March 10, 2024 Assessment & Plan (1) Non-ST elevation AK (NSTEMI): Plan: 58-year-old male with several months of medication noncompliance presents initial chief complaint left hand/arm numbness. Noncontrast CT of the brain and followed by CT angiogram of the head and neck vessels without acute abnormality yesterday. Chest x-ray without acute abnormality. Initial EKG performed 03/07/2024 at 1305 revealed sinus rhythm 95 bpm with first- degree AV block, PA interval 230 ms, low amplitude T wave inversions in the inferior lateral leads suggestive of possible ischemia. The patient has had 2 additional tracings in the meantime, the most recent of which took place today at 4 AM with progression of the inferolateral T wave abnormalities suggestive of inferolateral and even perhaps anterolateral ischemia. No ST segment elevation. Initial high-sensitivity troponin was elevated at 1225 PG per mL and is since trended down to 1021.8 PG per mL as of 8 AM this morning. Patient with several brief episodes of intermittent Mobitz type II second-degree AV block, the most recent of which took place 4030 5 AM with 2 dropped QRS complexes, no prolonged bradycardia. There was however a 3-second pause observed at midnight. Patient with baseline evidence of conduction system disease with noted first-degree AV block, question if intermittent AV block is due to RCA territory ischemia or if related to obstructive sleep apnea. Echocardiogram reveals mild concentric left ventricular hypertrophy with a large sized inferior, posterior wall motion abnormality that extends from the basal segments of the apical segments with hypokinesis of the segments. The basal posterior wall is slightly more hypokinetic and perhaps even akinetic. The left ventricular systolic function is mildly reduced at 40 to 45%. Grade 2 diastolic dysfunction noted. No significant valvular disease. 03/09/2024 Patient underwent diagnostic coronary angiography as evaluation of above. Presented with non-ST segment elevation myocardial infarction with stuttering pain with long duration. Recent discontinuation of antianginal medical therapies Coronary angiography demonstrates severe multivessel coronary disease with poor surgical targets. Acute culprit appears to be occlusion of the right coronary artery at the acute margin. Plan: Continue current medical therapies with single dose of furosemide this evening Will refer images for review by surgical team with very limited distal targets available Will reduce amlodipine dosing and add an oral nitrate. Continue metoprolol succinate, lisinopril, rosuvastatin at increased dose. Medical management including treatment of underlying diabetes and thyroid issues 03/10/2024 Clinically stable. Patient presented with non-ST segment elevation myocardial infarction with extended episode of chest pain days in duration. Cardiac catheterization demonstrates acute occlusion of the right coronary artery with minimal distal filling coinciding with infarct on echocardiogram Diffuse coronary disease identified with poor surgical targets. There was available not sufficient to warrant operative risk with little long-term benefit Plan as above medical management Discussed ongoing need for medical therapies Avoid strenuous activity. Off work additional 1 week then will need to make allowances for sedentary activities only Will require sublingual nitroglycerin prescription in addition to above therapies Follow-up cardiology 2 to 3 weeks Admission and Anticipated Discharge Date Admission Date: March 07, 2024 Subjective Patient seen and examined, chart, medications, telemetry reviewed No chest pains or chest discomfort no shortness of breath. No bleeding No arrhythmias on telemetry Heart rate and blood pressure controlled well Review of Systems Review of Systems: All systems reviewed & are unremarkable except as noted in Subjective Physical Exam Constitutional: + obese; no acute distress ENMT: external ear and nose normal, oropharynx normal Mallampati Class: II Neck: trachea midline, no thyromegaly + thick neck Respiratory: normal respiratory effort, lungs clear to auscultation Cardiovascular: Rate/Rhythm: regular rate and regular rhythm Heart Sounds: normal S1 and normal S2; no murmur Vessels: femoral pulses present and radial pulses present; no JVD Extremities: + edema Gastrointestinal (Abdomen): normal bowel sounds, soft, nontender, no hepatosplenomegaly Musculoskeletal: no cyanosis or clubbing, extremities motor strength 5/5 Psychiatric: A+Ox3, euthymic affect Results & Data Vital Signs (Past 12 Hours) Vital Signs Temp Pulse Pulse Resp BP Pulse Ox O2 Del Method 03/10/24 10:54 36.4 C L 66 19 114/79 97 Room Air 03/10/24 08:04 69 03/10/24 07:13 36.3 C L 70 19 113/79 98 Room Air 03/10/24 02:41 36.8 C 62 18 105/68 91 Room Air Laboratory Results Laboratory Results - last 24 hr 03/09/24 03/09/24 03/09/24 15:57 16:20 19:46 Sodium Potassium Chloride Carbon Dioxide Anion Gap BUN Creatinine Est Cr Clr Drug Dosing Est GFR ( Amer) Est GFR (Non-Af Amer) BUN/Creatinine Ratio Glucose POC Glucose 137 H 141 H 146 H Calcium 03/10/24 03/10/24 03/10/24 06:41 07:31 11:38 Sodium 133 L Potassium 4.2 Chloride 99 Carbon Dioxide 29 Anion Gap 5 BUN 17 Creatinine 1.32 Est Cr Clr Drug Dosing 75.0 Est GFR ( Amer) 69.4 Est GFR (Non-Af Amer) 59.9 BUN/Creatinine Ratio 12.9 Glucose 126 H POC Glucose 127 H 117 H Calcium 8.9
--- NOTE | 2024-03-10 14:47 | Hospitalist Progress Note ---
Date of Service March 10, 2024 Assessment & Plan Admission and Anticipated Discharge Date Admission Date: March 07, 2024 Results & Data Results & Data Vital Signs (Past 12 Hours) Vital Signs Temp Pulse Pulse Resp BP Pulse Ox O2 Del Method 03/10/24 10:54 36.4 C L 66 19 114/79 97 Room Air 03/10/24 08:04 69 03/10/24 07:13 36.3 C L 70 19 113/79 98 Room Air
--- NOTE | 2024-03-10 17:34 | Discharge Summary ---
Discharge Summary Date of Service March 10, 2024 Principal Dx & Hospital Course #1 = Principal Diagnosis (1) Non-ST elevation SD (NSTEMI): Plan NSTEMI Patient presented to the hospital with left arm tingling sensation and chest discomfort. Reports that he stopped taking all of his medication except for insulin about a month ago as it was increasingly difficult for him to manage the medications. On presentation to the ED, patient was hypertensive, saturating well on room air. Stroke alert was called due to left arm numbness. Patient was neurologically intact. CT headno acute findings CTA head and neck- did not show any acute findings EKG-normal sinus rhythm with inverted T waves in inferior lateral leads High sensitivity troponin - 1225 > 1268> 1202 > 1021 Echocardiogram showed EF of 40 to 45%; large size apical, inferior and posterior wall and posterior wall motion abnormality Patient was treated with heparin drip for an NSTEMI. He underwent diagnostic left heart catheterization on March 09, 2024; found to have severe multivessel coronary artery disease; acute culprit appears to be occlusion of right coronary artery at the acute margin Cardiology recommended the following: -Continue metoprolol, lisinopril, rosuvastatin. Amlodipine dose decreased with addition of oral nitrate. -per cardiology, on day of discharge "Avoid strenuous activity. Off work additional 1 week then will need to make allowances for sedentary activities only. Will require sublingual nitroglycerin prescription in addition to above therapies. Follow-up cardiology 2 to 3 weeks" Close PCP and cardiology followup after discharge. Hypertension Not taking medications prior to admission Restarted on metoprolol, lisinopril. Amlodipine dose reduced to 5 mg once a day; Imdur added PCP followup for continued BP monitoring Type 2 diabetes mellitus Resume home meds Hyperlipidemia Rosuvastatin dose increased to 40 mg once a day Hypothyroidism Restarted on levothyroxine, TSH elevated; repeat TSH in 6 weeks. 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 Left AMA at that time. Patient presented to the hospital with left arm tingling and chest discomfort. 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 He reports that he started to ex perience left arm numbness 6 hours prior to presentation. He also noted chest discomfort that is started around the same time. He denies any chest pain at this time. He reports shortness of breath While climbing stairs at baseline. He denies palpitation, fever, chills, sore throat, abdominal pain or urinary symptoms. He reports that he stopped taking all of his medication except for insulin about a month ago as it was increasingly difficult for him to manage the medication. In the ED, on presentation to the ED, patient was hypertensive, saturating well on room air. Stroke alert was called due to left arm numbness. Otherwise, patient was neurologically intact. CT headno acute finding CTA head and neck-t did not show any acute findings EKG shows normal sinus rhythm with inverted T waves in inferior lateral leads Patient's high sensitive troponin was elevated to 1225. Patient was a started on heparin drip Patient was referred for admission for NSTEMI. Admission Exam Per Admitting Provider On physical examination; Constitutional: Alert oriented x 3; not in distress. Morbidly obese Respiratory: normal respiratory effort, lungs clear to auscultation, no wheeze, rales, rhonchi. Normal insp/exp effort, no accessory muscle use Cardiovascular: RRR, no murmur, no edema Vessels: no JVD or carotid bruit Abdomen: normal bowel sounds, soft, nontender, no hepatosplenomegaly Musculoskeletal: no cyanosis or clubbing, extremities motor strength 5/5 Skin: no rashes, warm and dry normal turgor Neurologic: PERRL, EOMI, accommodation nl, no face palsy, no dysarthria CN's II- XI intact bilaterally and moves all extremities.No focal neurological deficit Psychiatric: A+Ox3, euthymic affect Discharge Exam General: Alert, oriented. No acute distress Psych: Appropriate mood and affect Neuro: No gross deficits while laying in bed HEENT: NC/AT CV: RRR Resp: Breath sounds clear bilaterally, no increased effort of breathing. Abdomen: Soft, nontender, nondistended. Extremities: edema in lower extremities bilaterally. Updated Medication List Medication Instructions Recorded Confirmed Type acetaminophen 650 mg 650 mg PO Q8H PRN Pain 06/13/22 03/07/24 History tablet,extended release clobetasol 0.05 % topical cream 1 applic topical BID PRN Skin 06/13/22 03/07/24 History Irritation famotidine 20 mg tablet 20 mg PO BID 06/13/22 03/07/24 History fluoxetine 20 mg capsule 40 mg PO QAM 06/13/22 03/07/24 History insulin detemir U-100 100 unit/mL 34 unit subcut UD 06/13/22 03/07/24 History (3 mL) subcutaneous pen (Levemir FlexTouch U-100 Insulin) levothyroxine 175 mcg tablet 175 mcg PO DAILYBB 06/13/22 03/07/24 History melatonin 3 mg tablet 3 mg PO HS 06/13/22 03/07/24 History semaglutide 2 mg/dose (8 mg/3 mL) 0.75 mg subcut UD 06/13/22 03/07/24 History subcutaneous pen injector (Ozempic) tadalafil 5 mg tablet (Cialis) 5 mg PO UD 06/13/22 03/07/24 History Lactobacillus acidophilus 10 100 mg PO BID #60 caps 06/14/22 03/07/24 Rx billion cell capsule (NewFlora) bupropion HCl 150 mg 24 hr tablet, 150 mg PO QAM 03/07/24 03/07/24 History extended release insulin glargine 100 unit/mL (3 40 unit subcut UD 03/07/24 03/07/24 History mL) subcutaneous pen (Lantus Solostar U-100 Insulin) latanoprost 0.005 % eye drops 1 drp ophthalmic (eye) HS 03/07/24 03/07/24 History amlodipine 5 mg tablet (Norvasc) 5 mg PO QAM #30 tabs 03/10/24 Rx aspirin 81 mg tablet,delayed 81 mg PO QAM #30 tabs 03/10/24 Rx release isosorbide mononitrate 30 mg 30 mg PO QAM #30 tabs 03/10/24 Rx tablet,extended release 24 hr lisinopril 20 mg tablet 20 mg PO QAM #30 tabs 03/10/24 Rx metoprolol succinate 50 mg 50 mg PO QAM #30 tabs 03/10/24 Rx tablet,extended release 24 hr nitroglycerin 0.4 mg sublingual See Rx Instructions .Route 03/10/24 Rx tablet (Nitrostat) .COMPLEX PRN chest pain #30 tabs rosuvastatin 40 mg tablet 40 mg PO DAILY #30 tabs 03/10/24 Rx Hospital Stay Data Consultations 03/07/24 14:48 ED Decision to Admit Stat 03/07/24 15:46 Consult Cardiology Routine Procedures Performed Operation Date: 03/09/24 08:00 Actual Procedures p Cineradiography w/Routine Exam - Antoine Hurd MD p Cath, Left with Cors and Vent - Antoine Hurd MD Diagnostic Imagining Performed 03/07/24 13:12 CT angio head w con Stat CT angio neck with con Stat CT head/brain wo con Stat 03/09/24 07:05 CL Cath Imgs for PACS use only Routine Chest X-Ray 03/07/24 13:12 XR chest 1V portable CLINICAL HISTORY: neuro deficit, acute stroke suspected TECHNIQUE: Single frontal radiograph of the chest was obtained. Comparison: Comparison is made to chest radiograph 10/03/2023 FINDINGS: No lines and tubes are seen. Cardiomegaly is noted. The lungs are clear. No evidence of pleural effusion or pneumothorax. IMPRESSION: No acute chest disease. Cardiomegaly is noted. ACT 112: Negative or not required by law. Electronically signed by: Jeremiah Keller M.D. 03/07/2024 3:[address] 03/07/24 13:12 CT angio neck with con, CT angio head w con, CT head/brain wo con CLINICAL HISTORY: neuro deficit, acute stroke suspected TECHNIQUE: Contiguous axial CT images of the head were acquired from the base of the skull to the vertex without intravenous contrast administration. CT angiography of the head and neck was performed following intravenous administration of iodinated contrast. Coronal and sagittal MIPS were obtained from the axial data set and were submitted for review. Automated dose lowering techniques and/or adjustment according to patient size were utilized for this examination. All measurements were calculated based on NASCET criteria. CT DOSE: 1156.27 mGy.cm Comparison: Comparison is made to CT head 02/09/2008 FINDINGS: CT head: Areas of decreased attenuation are present in the periventricular and subcortical white matter bilaterally consistent with small vessel ischemic disease. Generalized cerebral atrophy with commensurate enlargement of the ventricles, sulci, and cisterns is also present. There is no acute intracranial hemorrhage or evidence of acute territorial infarction. No shift of the midline structures, mass effect, or extra-axial abnormalities are shown. Atherosclerotic calcifications are present in the intracranial segments of the internal carotid arteries. Lungs and soft tissues are unremarkable. 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 Direct origin of the left vertebral artery from the aorta is noted. There is no significant atherosclerotic plaque in the aortic arch or the origins of the innominate, left common carotid, and left subclavian arteries. Incidental note is made of tortuous common carotid arteries bilaterally. The right vertebral artery is dominant. CTA Head: The anterior and posterior cerebral circulations are patent. No hemodynamically significant stenosis, aneurysm, dissection, or arteriovenous malformation is shown. IMPRESSION: 1. No acute intracranial hemorrhage, evidence of acute territorial infarction, or other acute intracranial disease process. Age-related changes as above. 2. No occlusion, hemodynamically significant stenosis, or dissection in the major cervical arteries. 3. No occlusion, hemodynamically significant stenosis, aneurysm, dissection, or arteriovenous malformation in the major intracranial arteries. Assessment of stenosis of the internal carotid arteries is based on NASCET criteria. ACT 112: Negative or not required by law. Electronically signed by: Jeremiah Keller M.D. 03/07/2024 2:23 PM Head CTA 03/07/24 13:12 CT angio neck with con, CT angio head w con, CT head/brain wo con CLINICAL HISTORY: neuro deficit, acute stroke suspected TECHNIQUE: Contiguous axial CT images of the head were acquired from the base of the skull to the vertex without intravenous contrast administration. CT angiography of the head and neck was performed following intravenous administration of iodinated contrast. Coronal and sagittal MIPS were obtained from the axial data set and were submitted for review. Automated dose lowering techniques and/or adjustment according to patient size were utilized for this examination. All measurements were calculated based on NASCET criteria. CT DOSE: 1156.27 mGy.cm Comparison: Comparison is made to CT head 02/09/2008 FINDINGS: CT head: Areas of decreased attenuation are present in the periventricular and subcortical white matter bilaterally consistent with small vessel ischemic disease. Generalized cerebral atrophy with commensurate enlargement of the ventricles, sulci, and cisterns is also present. There is no acute intracranial hemorrhage or evidence of acute territorial infarction. No shift of the midline structures, mass effect, or extra-axial abnormalities are shown. Atherosclerotic calcifications are present in the intracranial segments of the internal carotid arteries. Lungs and soft tissues are unremarkable. 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 Direct origin of the left vertebral artery from the aorta is noted. There is no significant atherosclerotic plaque in the aortic arch or the origins of the innominate, left common carotid, and left subclavian arteries. Incidental note is made of tortuous common carotid arteries bilaterally. The right vertebral artery is dominant. CTA Head: The anterior and posterior cerebral circulations are patent. No hemodynamically significant stenosis, aneurysm, dissection, or arteriovenous malformation is shown. IMPRESSION: 1. No acute intracranial hemorrhage, evidence of acute territorial infarction, or other acute intracranial disease process. Age-related changes as above. 2. No occlusion, hemodynamically significant stenosis, or dissection in the major cervical arteries. 3. No occlusion, hemodynamically significant stenosis, aneurysm, dissection, or arteriovenous malformation in the major intracranial arteries. Assessment of stenosis of the internal carotid arteries is based on NASCET criteria. ACT 112: Negative or not required by law. Electronically signed by: Jeremiah Keller M.D. 03/07/2024 2:23 PM Neck CTA 03/07/24 13:12 CT angio neck with con, CT angio head w con, CT head/brain wo con CLINICAL HISTORY: neuro deficit, acute stroke suspected TECHNIQUE: Contiguous axial CT images of the head were acquired from the base of the skull to the vertex without intravenous contrast administration. CT angiography of the head and neck was performed following intravenous administration of iodinated contrast. Coronal and sagittal MIPS were obtained from the axial data set and were submitted for review. Automated dose lowering techniques and/or adjustment according to patient size were utilized for this examination. All measurements were calculated based on NASCET criteria. CT DOSE: 1156.27 mGy.cm Comparison: Comparison is made to CT head 02/09/2008 FINDINGS: CT head: Areas of decreased attenuation are present in the periventricular and subcortical white matter bilaterally consistent with small vessel ischemic disease. Generalized cerebral atrophy with commensurate enlargement of the ventricles, sulci, and cisterns is also present. There is no acute intracranial hemorrhage or evidence of acute territorial infarction. No shift of the midline structures, mass effect, or extra-axial abnormalities are shown. Atherosclerotic calcifications are present in the intracranial segments of the internal carotid arteries. Lungs and soft tissues are unremarkable. 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 Direct origin of the left vertebral artery from the aorta is noted. There is no significant atherosclerotic plaque in the aortic arch or the origins of the innominate, left common carotid, and left subclavian arteries. Incidental note is made of tortuous common carotid arteries bilaterally. The right vertebral artery is dominant. CTA Head: The anterior and posterior cerebral circulations are patent. No hemodynamically significant stenosis, aneurysm, dissection, or arteriovenous malformation is shown. IMPRESSION: 1. No acute intracranial hemorrhage, evidence of acute territorial infarction, or other acute intracranial disease process. Age-related changes as above. 2. No occlusion, hemodynamically significant stenosis, or dissection in the major cervical arteries. 3. No occlusion, hemodynamically significant stenosis, aneurysm, dissection, or arteriovenous malformation in the major intracranial arteries. Assessment of stenosis of the internal carotid arteries is based on NASCET criteria. ACT 112: Negative or not required by law. Electronically signed by: Jeremiah Keller M.D. 03/07/2024 2:23 PM Pending Results Patient Have Any Pending Studies at Discharge: No Discharge Instructions Given to Patient (Per Discharging Provider) Mr. Corbin, Morales were evaluated by cardiology for your chest pain. They made some changes to your medications listed below. It is very important that you take your medications as prescribed everyday at home. Cardiology advised that you avoid strenuous activity. That you should be off work an additional 1 week then will need to make allowances for sedentary activities only. Follow-up with cardiology in 2 to 3 weeks. Please also keep close follow up with your primary care provider after discharge. Please do not hesitate to come back to the emergency room if your symptoms worsen or return. It was a pleasure taking care of you while you were here. Total Time Total Time Spent Total Time Spent (In Minutes): 75
== END 2024-03-10 18:22 | disposition home or self-care (01) | DRG 282 ==
LOC: ED 12:59 → 2S 15:47 → SUATTDRO 15:47 → 2S 16:33

== ENCOUNTER 2024-08-29 17:19 | Inpatient (IN) ==
--- OUTSIDE RECORDS SUMMARY | 2024-08-29 17:22 | External Medical Summary | Summary of Care ---
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 Role Phone Jennifer Jimenez DO Primary Care Provider Reason for Referral * Evaluate & Treat - Unlimited Visits (Within 30 days (routine)) - Authorized Specialty Diagnoses / Procedures Referred By Poonam t Referred To Contact Sleep Medicine / Sleep Disorders Diagnoses CHARLEEN (obstructive sleep apnea) Jennifer Jimenez DO [address] [place] [id number] Phone: tel: fax: Referral ID Status Reason Start Date Expiration Date Visits Requested Visits Authorized [id number] Authorized Specialty Services Required 4 2 2 Question Answer Referral Priority Within 30 days (routine) Where should this appointment be scheduled? [facility] Sleep Apnea Testing and Management Does the patient snore and/or gasp at night or has been told they stop breathing at night? Yes, document patient's symptoms in progress note Reason for Visit * Reason Onset Date Comments Follow Up Medication Administration 08/10/2024 Flu an d/or Pneumo Inj Encounter Details Date Type Department Care Team (Late st Contact Info) Description 08/10/2024 10:40 AM EDT Office Visit Family [facility] [address] [place] [id number] Jennifer Jimenez DO [address] [place] [id number] Type 2 diabetes mellitus with diabetic mononeuropathy, with long-term current use of insulin ([facility])*; Need for prophylactic vaccination and inoculation against influenza; CHARLEEN (obstructive sleep apnea); Moderate binge-eating disorder; Acquired hypothyroidism; Severe episode of recurrent major depressive disorder, without psychotic features ([facility]) Allergies Active Allergy Reactions Criticality Noted Date Comments Doxycycline Hives 08/01/2012 Macrolides And Ketolides 07/15/2000 unknown Morphine And Codeine 06/11/2008 GI upset Penicillins 08/29/1999 1969 anaphylaxis documented as of this encounter (statuses as of 08/24/2024) Medications Melatonin 3 MG Oral Tablet Disintegrating Take 1 Tablet at bedtime by mouth. 30 Tablet 11/06/19 22 Active Lactobacillus Extra Strength Oral Capsule Take 1 Capsule daily by mouth. 30 Capsule 11/06/19 22 Active Acetaminophen ER 650 MG Oral Tablet Extended Release Take 1 Tablet by mouth every 8 hours as needed for Pain, Moderate. 30 Tablet 11/06/19 22 Active metFORMIN HCl ER 500 MG Oral Tablet Extended Release 24 Hour (Glucophage XR) 1 daily with breakfast x 2 weeks then 2 daily with breakfast 60 Tablet 11 06/21/20 22 Active OneTouch Delica Lancets 33GIndications:Ty pe 2 diabetes mellitus with hemoglobin A1c goal of less than 8.0% ([facility]) Use as directed 4 times per day 400 Each 3 10/18/19 23 Active Nystatin 487568 UNIT/GM External Powder (Nystop)Indicatio ns:Tinea cruris Apply topically to affected area 3 times a day. Apply to scrotum 60 g 2 10/30/19 24 Active Triamcinolone Acetonide 0.1 % External Cream (Aristocort) Apply topically to affected area 2 times a day. To affected area. vaseline after 453.6 g 5 10/30/19 24 Active Lisinopril 20 MG Oral Tablet (Prinivil)Indicat ions:Type 2 diabetes mellitus with hyperglycemia, with long-term current use of insulin ([facility]),HTN, goal below 140/90 TAKE ONE TABLET BY MOUTH EVERY MORNING 90 Tablet 3 11/07/19 24 Active Mounjaro 2.5 MG/0.5ML Subcutaneous Solution Pen-injector (Tirzepatide)Barbie cations:Type 2 diabetes mellitus with hemoglobin A1c goal of less than 8.0% (HCC),Type 2 diabetes mellitus with hyperglycemia, with long-term current use of insulin ([facility]) Inject 2.5 mg under the skin once a week. 2 mL 12/04/19 24 2024 Active Clobetasol Propionate 0.05 % External Cream (Temovate)Indicat ions:Dermatitis Apply topically to affected area 2 times a day. To affected area on feet for up to two weeks. 60 g 1 12/23/19 24 Active OneTouch Ultra In Vitro Strip (Glucose Blood) E11.9, use once daily 100 Strip 12/23/19 24 Active Aspirin Low Dose 81 MG Oral Tablet Delayed Release (aspirin enteric coated)Indication s:Cerebrovascular disease, arteriosclerotic, post-stroke TAKE TWO TABLETS BY MOUTH EVERY MORNING 180 Tablet 01/06/20 24 Active Metoprolol Succinate ER 50 MG Oral Tablet Extended Release 24 Hour (toPROL XL)Indications:HT N, goal below 140/90 TAKE ONE TABLET BY MOUTH EVERY MORNING 90 Tablet 01/06/20 24 Active Rosuvastatin Calcium 40 MG Oral Tablet (Crestor) Take 1 Tablet by mouth in the morning. 03/10/20 24 Active Nitroglycerin 0.4 MG Sublingual Tablet Sublingual (Nitrostat) Place 1 Tablet under the tongue every 5 minutes as needed for Pain, Chest. 03/10/20 24 Active Isosorbide Mononitrate ER 30 MG Oral Tablet Extended Release 24 Hour (Imdur) Take 1 Tablet by mouth in the morning. 03/10/20 24 Active Famotidine 20 MG Oral Tablet (Pepcid)Indicatio ns:Gastroesophage al reflux disease without esophagitis TAKE 1 TABLET BY MOUTH IN THE MORNING AND 1 TABLET BEFORE BEDTIME 60 Tablet 04/05/20 24 Active Insulin Glargine Solostar 100 UNIT/ML Subcutaneous Solution Pen-injector (Lantus SoloStar)Indicati ons:Type 2 diabetes mellitus with hyperglycemia, with long-term current use of insulin ([facility]) Inject 40 Units under the skin at bedtime. TITRATING DOSE EVERY 2 WEEKS UNTIL BG LESS THAN 180 (Levemir not being made anymore) (up until max dose of 50 units) 45 mL 05/25/20 24 Active Insulin Pen Needle 32G X 8 MMIndications:Typ e 2 diabetes mellitus with hemoglobin A1c goal of less than 8.0% ([facility]) Use as directed 2 times a day. To inject insulin. 200 Each 3 07/10/20 Active Ozempic (0.25 or 0.5 MG/DOSE) 2 MG/1.5ML Solution Pen-injector (Semaglutide(0.25 or 0.5MG/DOS))Indica tions:Type 2 diabetes mellitus with diabetic mononeuropathy, with long-term current use of insulin (HCC) Inject 0.25 mg under the skin once a week. 1.5 mL 08/10/20 Active FLUoxetine HCl 40 MG Oral Capsule (PROzac)Indicatio ns:Moderate binge-eating disorder,Severe episode of recurrent major depressive disorder, without psychotic features (HCC) Take 1 Capsule by mouth in the morning. 90 Capsule 3 08/10/20 24 Active Levothyroxine Sodium 175 MCG Oral Tablet (Levoxyl)Indicati ons:Acquired hypothyroidism Take 1 Tablet by mouth daily first thing in the morning. (at least 30 min prior to breakfast or other meds) 90 Tablet 3 08/10/20 24 Active FLUoxetine HCl 40 MG Oral Capsule (PROzac)Indicatio ns:Binge eating disorder Take 1 Capsule by mouth in the morning. 30 Capsule 5 12/23/19 24 2023 Discontinued(R efill) Levothyroxine Sodium 175 MCG Oral Tablet (Levoxyl)Indicati ons:Acquired hypothyroidism Take 1 Tablet by mouth daily first thing in the morning. (at least 30 min prior to breakfast or other meds) 90 Tablet 3 12/23/19 24 2023 Discontinued(R efill) buPROPion HCl ER (XL) 150 MG Oral Tablet Extended Release 24 Hour (Wellbutrin XL)Indications:Se diana episode of recurrent major depressive disorder, without psychotic features (HCC) Take 1 Tablet by mouth in the morning. 90 Tablet 3 01/19/20 24 2023 Discontinued amLODIPine Besylate 5 MG Oral Tablet (Norvasc) Take 1 Tablet by mouth in the morning. 03/10/20 24 2023 Discontinued documented as of this encounter (statuses as of 08/24/2024) Active Problems Problem Noted Date Diagnosed Date Ulnar neuropathy at elbow, left 08/19/2024 Radial neuropathy, left 08/19/2024 Food insecurity 12/22/2023 Overview: Per [employer] [...] eyes, modera te stage 03/19/2017 Pruritus 03/28/2016 Overview (03/28/2016): Favor it is related to his Adult Onset Diabetes Mellitus amitriptyline at bedtime Keratoderma 03/28/2016 Overview (03/28/2016): Palmoplantar, elbows, knees Alopecia areata 03/28/2016 Overview (03/28/2016): Noted, not treated Vitiligo 03/28/2016 Overview (03/28/2016): Noted not reated HTN, goal below 140/90 08/02/2015 Acquired hypothyroidism 07/20/2015 Severe obstructive sleep apnea 05/12/2014 Overview (10/20/2014): BIPAP AHP Type 2 diabetes mellitus wit h hemoglobin A1c goal of less than 8.0% 11/09/2013 Overview (02/08/2016): ICD-10 update of inactive term DYSLIPIDEMIA, GOAL LDL BELOW 100 09/21/2009 Overview (09/21/2009): Per Lipid Taxonomy. CEREBROVASCULAR DZ, POST-STROKE 01/24/2009 Overview (01/26/2009): Modified per CVA protocol #8 Donita alberts 07/26/2000 documented as of this encounter (statuses as of 08/24/2024) Resolved Problems Problem Noted Date Diagnosed Date [...] weight or BMI > 40) 01/09/2010 12/26/2017 Overview (01/01/2016): Per Obesity Taxonomy ICD-10 update of inactive term HTN, GOAL BELOW 130/80 11/08/200906/04 Overview (11/08/2009): Per HTN Taxonomy. Type 2 diabetes mellitus wit h hemoglobin A1c goal of less than 7.0% 07/27/2009 11/09/2013 Overview (02/06/2016): Modified per Diabetes protocol #14. ICD-10 update of inactive term Cerebrovascular event, ill-d efined, within last 8 weeks 02/23/2008 01/26/2009 Overview (01/26/2009): Modified per CVA protocol #8 ADVANCE DIRECTIVE INFORMATION 02/12/2008 08/16/2024 Overview (02/12/2008): No, Advance Directive brochure mailed to patient. Dyslipidemia, goal to be determined 02/09/2008 09/21/2009 Overview (09/21/2009): Per Lipid Taxonomy. DM type 2, not at goal 03/23/200105/11 Insomnia 07/26/2000 07/10/2017 Overview (07/14/2017): ICD-10 update of inactive term DM type 2, not at goal 07/27 Overview (07/27/2009): Modified per Diabetes protocol #14. HTN, goal below 140/90 11/08 Overview (11/08/2009): Per HTN Taxonomy. OBESITY, UNSPECIFIED 010 Overview (01/09/2010): Per Obesity Taxonomy documented as of this encounter (statuses as of 08/24/2024) Immunizations Name Administration Dates Next Due COVID-19 mRNA, LNP-s, No Pre serve, 2-Dose Series (Pfizer) 06/07/2021,12/26/2020 H1N1 2009 Influenza, IM 09/01/2009 Hepatitis B, 20+ yrs 05/31/2014,12/10/2013,11/08 Pneumococcal Conjugate Vacci ne, 20-valent ([id number]) 03/07/2022 Pneumococcal Polysaccharide PPV23 (Pneumovax) 04/29/2008 Seasonal Influenza Vac., MDV , IM, 0.5 mL (Fluzone) 06/14/2014,08/12/2013,09/04/2012,07/30,08/07/2010,08/03/2009,08/04/2008 Seasonal Influenza, PF, 6 M & above, IM , (FluLaval or Fluzone) 06/21/2022,06/29/2021,07/24/2020,06/25,07/11/2017 Seasonal Influenza, Quadriva lent, No Preserve, IM 07/19/2016,07/20/2015 Seasonal Influenza, Quadriva lent, No Preserve, Mdck 07/10/2018 Seasonal Influenza, Trivalen t, (IIV3), PF, (Fluzone) 08/10/2024 TD, Preservative Free 05/07/2018 TDAP, Age 7 and older, IM (Adacel) 03/28/2008 Zoster Vaccine Recombinant (Shingrix) 06/25/2019 ,12/04/2018 documented as of this encounter Social History Tobacco Use Types Packs/Day Years Used Date Smoking Tobacco: Never Smokeless Tobacco: Never Alcohol Use Standard Drinks/Week Comments Yes 0 (1 standard drink = 0.6 oz pure alcohol) [facility] PHQ-2 Answer Date Recorded PHQ Adult Total Score 24 04/02/2024 Hunger Vital Sign Answer Date Recorded Within the past 12 months, y ou worried that your food would run out before you got the money to buy more. Never true Within the past 12 months, t he food you bought just didn't last and you didn't have money to get more. Sometimes true Childcare Answer Date Recorded Do you feel overwhelmed with taking care of a child, family member or friend? No 12/04/2023 Does your family need help f inding childcare? (Household - for ages 0-17 years) Not on file 12/04/2023 Clothing Answer Date Recorded Have you been unable to get clothing when it was really needed? No 12/04/2023 Is your family able to get c lothes or diapers when needed? (Household - for ages 0-17 years) Not on file 12/04/2023 Personal Safety Answer Date Recorded Do you feel unsafe or have concerns for your saf ety? No 12/04/2023 Do you have concerns for you r family's safety? (Household - for ages 0-17 years) Not on file 12/04/2023 Utilities Answer Date Recorded Do you have trouble paying y our heating, water, or electric bill? No 12/04/2023 Is your family able to pay t he heat, water, or electric bill? (Household - for ages 0-17 years) Not on file 12/04/2023 Does your family have access to good internet? (Household - for ages 0-17 years) Not on file 12/04/2023 Employment Status Answer Date Recorded Are you unemployed or without regular income? No 12/04/2023 Does the household have a re gular source of income? (Household - for ages 0-17 years) Not on file 12/04/2023 Social Connections Answer Date Recorded How often do you feel lonely or isolated from th ose around you? Always 12/04/2023 Financial Resource Strain Answer Date R ecorded Do you have any trouble payi ng for your medications, or do you think you might in the future? No 12/04/2023 Does your family have troubl e paying for medicine? (Household - for ages 0-17 years) Not on file 12/04/2023 Transportation Needs Answer Date Record ed READ ONLY Do you have troubl e getting a ride to medical visits or work? Never True 12/04/2023 Does your family have a hard time getting a ride to doctors visits? (Household - for ages 0-17 years) Not on file 12/04/2023 Has lack of transportation k ept you from medical appointments, meetings, work, or from getting things needed for daily living? Check all that apply. (Adult - for ages 18 years and over) Not on file 12/04/2023 Do you (or your family) have trouble finding or paying for a ride (transportation)? (Household - for ages 0-17 years) Not on file 12/04/2023 Housing Stability Answer Date Recorded Do you currently live in a s helter or have no steady place to sleep at night? Yes 12/04/2023 READ ONLY Do you think you a re at risk of becoming homeless? No 12/04/2023 Does your family worry about paying for your home or becoming homeless? (Household - for ages 0-17 years) Not on file 0 12/04/2023 Are you homeless or worried that you might be in the future? (Adult - for ages 18 years and over) Not on file Are you (or your family) laura eless or worried that you might be in the future? (Household - for ages 0-17 years) Not on file Food Insecurity Answer Date Recorded Do you need food for this week? No 12/04/2023 Are you able to get enough f ood for your family? (Household - for ages 0-17 years) Not on file 12/04/2023 Does your family need food t his week? (Household - for ages 0-17 years) Not on file 12/04/2023 Do you always have enough fo od for your family? (Household - for ages 0-17 years) Not on file 12/04/2023 Education Answer Date Recorded What is the highest level of school you have completed or the highest degree you have received? 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[employer] Not on file Not on file Not on file documented as of this encounter Last Filed Vital Signs Vital Sign Reading Time Taken Comments Blood Pressure 128/80 08/10/2024 12:08 PM EDT Pulse 76 08/10/2024 12:08 PM EDT Temperature 36.4 C (97.5 F) 08/10/2024 12:08 PM E DT Respiratory Rate 18 08/10/2024 12:08 PM EDT Oxygen Saturation - - Inhaled Oxygen Concentration - - Weight 117 kg (258 lb) 08/10/2024 12:08 PM EDT Height 165.1 cm (5' 5") 08/10/2024 12:08 PM EDT Body Mass Index 42.93 08/10/2024 12:08 PM EDT documented in this encounter Patient Instructions * Patient Instructions* Jennifer Jimenez DO - 08/10/2024 12:41 PM EDT FMLA for up to 3 months Short term disability 30 days to 6 months half-way disability 6 months documented in this encounter Progress Notes * Jennifer Jimenez DO - 08/10/2024 12:19 PM EDT Subjective: Ten Corbin is a 59 year old male. Chief Complaint Patient presents with Follow Up Medication Administration Flu and/or Pneumo Inj HPI: "I've been better". Very tired, not sleeping well, would like to restart CPAP- last used it 20years ago. Very confused, not thinking straight, trouble doing job at work. trouble taking medications- only thing he is taking is insulin, not checking sugars. Very depressed. a few years ago, now mom is coming home on hospice from terminal cancer. Eats fast food. Lives alone. Not takingmedications for depression. Thinks he needs to retire early. 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 Has radial and ulnar neuropathyof L hand/arm- dropping things. good movement of shoulder. Working with ortho to have it fixed, just had EMG. Using night splints. Also has diabetic neuropathy, trouble walking, trouble with balance,frequent falls, ambulating with cane. Thinking about medical jail (disability) Discussed FMLA, disability. He called his manager helpdesk at work, and had me talk to her, I discussed that I would like to support FMLA for him. He may need help getting paperwork started through HR. We discussed taking a few weeks off to get things sorted out. Agreeable to try CB- asked MTM to see patient today. Diabetes Follow Up The patient is taking medications as instructed. No medication side effects are described. Compliance with Diet: pre-contemplative Compliance with exercise program: pre-contemplative The patient is not monitoring home blood pressures. The patient denies any acute focal neurologic symptoms. The patient reports no chest pain, no orthopnea, and no dyspnea on exertion. The patient denies intermittent claudication symptoms. Fasting home blood sugar readings: The patient is not recording home blood sugars. Hypoglycemic symptoms: absent Visual changes: + Peripheral Neuropathy: +++ Patient is aware of possibility of myocardial infarction without any symptoms, and poor glycemic control will lead to poorer prognosis. Last Retinal Exam: within the last year PHM: Patient Active Problem List Diagnosis Tinea cruris ADVANCE DIRECTIVE INFORMATION CEREBROVASCULAR DZ, POST-STROKE DYSLIPIDEMIA, GOAL LDL BELOW 100 Type 2 diabetes mellitus with hemoglobin A1c goal of less than 8.0% (HCC) Severe obstructive sleep apnea Acquired hypothyroidism HTN, goal below 140/90 Pruritus Keratoderma Alopecia areata Vitiligo Primary open angle glaucoma of both eyes, moderate stage Major depressive disorder, recurrent episode, moderate (HCC) Binge eating disorder Erectile dysfunction Rotator cuff syndrome of right shoulder Psoriasis History of sepsis History of diabetic ketoacidosis Iron deficiency anemia due to chronic blood loss Elevated alkaline phosphatase measurement Diabetic polyneuropathy associated with diabetes mellitus due to underlying condition (HCC) Chronic ankle pain Chronic pain of left knee Food insecurity Current Outpatient Medications Medication Sig Dispense Refill FLUoxetine HCl 40 MG Oral Capsule (PROzac) Take 1 Capsule by mouth in the morning. 90 Capsule 3 Levothyroxine Sodium 175 MCG Oral Tablet (Levoxyl) Take 1 Tablet by mouth daily first thing in the morning. (at least 30 min prior to breakfast or other meds) 90 Tablet 3 Ozempic (0.25 or 0.5 MG/DOSE) 2 MG/1.5ML Solution Pen-injector (Semaglutide(0.25 or 0.5MG/DOS)) Inject 0.25 mg under the skin once a week. 1.5 mL 0 Insulin Pen Needle 32G X 8 MM Use as directed 2 times a day. To inject insulin. 200 Each 3 Insulin Glargine Solostar 100 UNIT/ML Subcutaneous Solution Pen-injector (Lantus SoloStar) Inject 40 Units under the skin at bedtime. TITRATING DOSE EVERY 2 WEEKS UNTIL BG LESS THAN 180 (Levemir not being made anymore) (up until max dose of 50 units) 45 mL 0 Famotidine 20 MG Oral Tablet (Pepcid) TAKE 1 TABLET BY MOUTH IN THE MORNING AND 1 TABLET BEFORE BEDTIME 60 Tablet 11 Isosorbide Mononitrate ER 30 MG Oral Tablet Extended Release 24 Hour (Imdur) Take 1 Tablet by mouthin the morning. Nitroglycerin 0.4 MG Sublingual Tablet Sublingual (Nitrostat) Place 1 Tablet under the tongue every5 minutes as needed for Pain, Chest. Rosuvastatin Calcium 40 MG Oral Tablet (Crestor) Take 1 Tablet by mouth in the morning. Aspirin Low Dose 81 MG Oral Tablet [...] up to two weeks. 60 g 1 Phone2ActionTouch Ultra In Vitro Strip (Glucose Blood) E11.9, use once daily 100 Strip 3 Lisinopril 20 MG Oral Tablet (Prinivil) TAKE ONE TABLET BY MOUTH EVERY MORNING 90 Tablet 3 Nystatin 291775 UNIT/GM External Powder (Nystop) Apply topically to affected area 3 times a day. Apply to scrotum 60 g 2 Triamcinolone Acetonide 0.1 % External Cream (Aristocort) Apply topically to affected area 2 times a day. To affected area. vaseline after 453.6 g 5 Phone2ActionTouch Delica Lancets 33G Use as directed 4 [...] at bedtime by mouth. 30 Tablet 5 Mounjaro 2.5 MG/0.5ML Subcutaneous Solution Pen-injector (Tirzepatide) Inject 2.5 mg under the skinonce a week. (Patient not taking: Reported on 08/10/2024) 2 mL 11 No current facility-administered medications for this visit. Review of patient's allergies indicates: Allergen Reactions Doxycycline Hives Macrolides And Ketolides unknown Morphine And Codeine GI upset Penicillins 1969 anaphylaxis Objective: BP 128/80 | Pulse 76 | Temp 36.4 C (97.5 F) | Resp 18 | Ht 1.651 m (5' 5") | Wt 117 kg (258 lb)| BMI 42.93 kg/m | BSA 2.32 m Physical Exam: General: alert, confused and no distress Neck: supple, no adenopathy, no bruits, thyroid normal size, non-tender, without nodularity Heart: regular rate & rhythm, no murmur, and no gallops Lungs: chest symmetric with normal AP diameter, no chest deformities noted, no chest wall tenderness, lungs clear to auscultation Pulses: carotid=2/4 w/o bruits Extremities: less than 2 second capillary refill, no joint deformities, effusion, or inflammation unable to move L forearm, wrist, hand well, 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 Recent Labs: Lab Results Component Value Date/Time HEMOGLOBIN A1C - [facility] 12.5 (H) 11/06/2023 11:16 AM HEMOGLOBIN A1C - [facility] 11.8 (H) 11/21/2022 10:17 AM HEMOGLOBIN A1C - [facility] 13.6 (H) 03/07/2022 10:39 AM HEMOGLOBIN A1C - [facility] 7.5 (H) 12/05/2017 02:37 PM HEMOGLOBIN A1C - [facility] 7.8 (H) 07/11/2017 08:48 AM HEMOGLOBIN A1C - [facility] 8.9 (H) 03/28/2017 10:20 AM HEMOGLOBIN A1C POCT - [facility] >14.0 (H) 10/18/2022 12:42 PM HEMOGLOBIN A1C POCT - [facility] 8.3 (H) 12/05/2021 08:39 AM HEMOGLOBIN, [id number] LAB 8.7 (A) 10/30/2020 12:00 AM HEMOGLOBIN, [id number] LAB 9.2 (H) 06/02/2020 12:00 AM HEMOGLOBIN, [id number] LAB 8.6 (A) 09/17/2019 12:00 AM Lab Results Component Value Date/Time CREATININE - [facility] 1.2 08/10/2024 01:15 PM CREATININE - [facility] 1.0 11/29/2023 01:31 PM CREATININE - [facility] 1.1 11/06/2023 11:16 AM CREATININE - [facility] 1.10 06/02/2020 12:00 AM CREATININE - [facility] 0.97 06/18/2019 12:00 AM CREATININE - [facility] 0.99 04/02/2019 12:00 AM CREATININE - [facility] 0.9 12/15/2017 12:20 PM CREATININE - [facility] 0.8 12/10/2017 09:39 AM CREATININE - [facility] 1.0 12/05/2017 02:37 PM CREATININE, RANDOM URINE - [facility] 89 07/11/2017 08:48 AM CREATININE, RANDOM URINE - [facility] 78 07/12/2016 10:22 AM CREATININE, RANDOM URINE - [facility] 136 03/17/2015 10:32 AM Latest Reference Range & Units 10/18/22 12:42 11/21/22 10:17 01/28/23 00:00 01/28/23 09:55 10/03/23 00:00 10/10/23 00:00 11/06/23 11:16 11/29/23 13:31 BNP, NT-Pro <300 pg/mL 506 (H) Triglycerides <=174 mg/dL 182 (H) Cholesterol <200 mg/dL 187 Non-HDL Cholesterol <=159 mg/dL 143 HDL Cholesterol >39 mg/dL 44 LDL Cholesterol <=129 mg/dL 107 LDL Cholesterol (Direct Measure) <=129 mg/dL 90 SODIUM 135 - 146 mmol/L 133 (L) 132 (L) 135 POTASSIUM 3.5 - 5.1 mmol/L 4.6 4.4 4.8 CHLORIDE 98 - 107 mmol/L 98 95 (L) 96 (L) CO2 22 - 32 mmol/L 23 23 26 BUN 6 - 20 mg/dL 14 15 12 CREATININE 0.6 - 1.2 mg/dL 1.0 1.1 1.0 EGFR >=60 mL/min 90 81 86 ANION GAP 7 - 15 mmol/L 12 14 13 GLUCOSE 70 - 120 mg/dL 235 (H) 422 (H) 248 (H) CALCIUM 8.4 - 10.2 mg/dL 9.6 9.6 9.8 GLUCOSE - POCT 70 - 120 mg/dL 115 Protein 6.0 - 8.3 g/dL 7.2 Estimated Average Glucose <126 mg/dL 292 (H) 312 (H) Lipase 13 - 60 U/L 46 Uric Acid 3.4 - 7.0 mg/dL 4.3 Hemoglobin A1C 4.0 - 5.6 % 11.8 (H) 12.5 (H) Hemoglobin A1c 4.0 - 5.6 % >14.0 (H) TSH 0.27 - 4.20 uIU/mL 0.91 32.10 (H) TSH WITH FREE T4 IF INDICATED Rpt Rpt ! T4, Free 0.9 - 1.7 ng/dL 0.5 (L) CBC Rpt WBC 4.00 - 10.80 K/uL 8.26 RBC 4.50 - 5.25 M/uL 5.76 HGB 14.0 - 16.8 g/dL 16.1 HCT 40.0 - 48.4 % 45.8 MCV 82.0 - 99.5 fL 79.5 MCH 27.0 - 34.0 pg 28.0 MCHC 32.0 - 36.0 g/dL 35.2 RDW 11.5 - 15.5 % 14.2 PLT 140 - 400 K/uL 240 MPV 6.6 - 11.1 fL 9.6 CBC WITH WBC DIFFERENTIAL Rpt ! Absolute Neutrophils 1.80 - 7.70 K/uL 6.23 Absolute Lymphocytes 1.00 - 4.80 K/ul 1.16 Absolute Monocytes 0.00 - 1.10 K/uL 0.50 Absolute Eosinophils 0.00 - 0.70 K/uL 0.32 Absolute Basophils 0.00 - 0.20 K/uL 0.05 Albumin 3.8 - 5.0 g/dL 4.4 AST 10 - 50 U/L 15 ALT 10 - 50 U/L 14 Alkaline Phosphatase 35 - 130 U/L 125 Bilirubin, Total <=1.2 mg/dL 0.5 Color, Urine Light Yellow, Yellow Dark Yellow ! Color, Urine Yellow or Light Yellow [place] Clarity, Urine Clear Cloudy ! Blood, Urine Negative Negative Clarity, Urine Clear Clear Glucose, Urine Negative mg/dL 500 ! Glucose, Urine Negative mg/dL Negative Bilirubin, Urine Negative Small ! Ketone, Urine Negative mg/dL Negative Specific [place], Urine 1.003 - 1.030 >=1.030 Specific [place], Urine 1.003 - 1.030 1.030 Blood, Urine Negative Negative pH, Urine 5.0, 5.5, 6.0, 6.5, 7.0, 7.5 units 5.5 Protein, Urine Negative mg/dL 100 ! Protein, Urine Negative mg/dL >=300 Urobilinogen, Urine 0.2 - 1.0 mg/dL 1.0 Urobilinogen, Urine 0.2, 1.0 mg/dL 1.0 Nitrite, Urine Negative Negative Nitrite, Urine Negative Negative Esterase, Urine Negative Negative Post Void Residual (PVR) - Urine mL 0 ASSESSMENT/PLAN: Check labs today. Place CBGM, Restart antidepressant, try ozempic. Recommend FMLA given L arm weakness, requiring surgery, need to get diabetes under control. Type 2 diabetes mellitus with diabetic mononeuropathy, with long-term current use of insulin (HCC) (Primary) - HEMOGLOBIN A1C; Future; Expected date: 08/10/2024 - Ozempic (0.25 or 0.5 MG/DOSE) 2 MG/1.5ML Solution Pen-injector (Semaglutide(0.25 or 0.5MG/DOS)); Inject 0.25 mg under the skin once a week. - CBC; Future; Expected date: 08/10/2024 Need for prophylactic vaccination and inoculation against influenza - INFLUENZA VAC, TRIVALENT, (IIV3), PF, 0.5 ML (FLUZONE) CHARLEEN (obstructive sleep apnea) - SLEEP MEDICINE REFERRAL OP Binge eating disorder - FLUoxetine HCl 40 MG Oral Capsule (PROzac); Take 1 Capsule by mouth in the morning. Acquired hypothyroidism - Levothyroxine Sodium 175 MCG Oral Tablet (Levoxyl); Take 1 Tablet by mouth daily first thing in the morning. (at least 30 min prior to breakfast or other meds) - TSH WITH FREE T4 IF INDICATED; Future; Expected date: 08/10/2024 - COMPREHENSIVE METABOLIC PANEL; Future; Expected date: 08/10/2024 Severe episode of recurrent major depressive disorder, without psychotic features (HCC) - FLUoxetine HCl 40 MG Oral Capsule (PROzac); Take 1 Capsule by mouth in the morning. Follow Up: Return in about 1 week (around 08/17/2024), or if symptoms worsen or fail to improve, forClinic Visit, Labs Today. | For: Clinic Visit, Labs Today | Check-out note: Follow up with me 1 week. Lab today Sleep med soon MTM at 1:45 A healthy, low fat, low cholesterol diabetic diet and 30-60 minutes of cardiovascular exercise daily were encouraged. Maintaining a healthy weight/BMI was advised. A total of 1500mg of Calcium and 1000 IU of vitamin D were recommended daily, to be obtained from a combination of both diet and supplement sources. 45 min spent with patient, reviewing history, performing physical exam, reviewing labs, studies, specialist OVNs, and reports, educating and coordinating care, discussing treatment Jennifer Jimenez DO * Dipika Blevins LPN - 08/10/2024 12:07 PM EDT PRE - ADMINISTRATION DOCUMENTATION Are you experiencing any cold symptoms or fever? No Have you had Guillain-[place] Syndrome (an illness that causes paralysis) within the last 6 weeks? No Have you had the flu shot in the past? YES Have you ever had a reaction to the flu shot? Tamie Blevins LPN, 08/10/2024 12:07 PM Immunization Administration Documentation Time Out Procedure Performed: Yes Patient Identified (Ask Name/Date of ): Yes Does the patient have a fever greater than 101 degrees today? No Patient allergic to latex? No VFC Stock: No Immunization(s) verified: Yes, Immunization Name: Flu , VIS Sheet(s) given: Yes Verified Side and Site: Yes Verified Shot(s) with Parent(s)/Patient: Yes documented in this encounter Nursing Notes * Dipika Blevins LPN - 08/10/2024 12:07 PM EDT The patient has been properly identified by confirmation of name and date of . Chief Complaint Patient presents with Follow Up documented in this encounter Plan of Treatment Upcoming Encounters Date Type Department Care Team (Late st Contact Info) Description 09/30/2024 10:30 AM EST Office Visit Orthopaedics [facility] [address] [address] [address], [address] [address] 10/12/2024 7:30 AM EST Office Visit Sleep Disorders Ctr [facility] [address] [phone] Jenny Avery CRNP [address] [address] 03/25/2025 2:30 PM EDT Office Visit Dermatology [facility] [address] [facility] [address] [place] [address] Don Ortiz MD [address] [place] [address] Scheduled Referrals Name Type Priority Associated Diagnoses Orde r Schedule SLEEP MEDICINE REFERRAL OP Referral Within 30 days (routine) CHARLEEN (obstructive sleep apnea) Ordered: 08/10/2024 Health Maintenance Due Date Last Done Comments Hepatitis C Screening 1985 Cologuard 2012 Fecal Occult Blood Test 2012 Sigmoidoscopy 2012 Albumin/Creatinine Ratio 06/02/2021 020, 06/19/2018, 07/11/2017, Additional history exists COVID-19 Vaccine ( season) 2024 06/07/2021, 12/26/2020 Diabetic Foot Exam 10/14/2024 04/24/2023, 0 03/07/2022, 08/24/2020, Additional history exists Postponed from 04/24/2024 (Contraindicated Today) HbA1c 02/08/2025 08/10/2024, 10/14, 11/21/2022, Additional history exists Diabetic Eye Exam 03/04/2025 03/04/2024, , 02/23/2020, Additional history exists Depression Monitoring 04/02/2025 04/02/2024 GFR 08/10/2025 08/10/2024, 11/13, 11/06/2023, Additional history exists TSH 08/10/2025 08/10/2024, 10/14, 11/21/2022, Additional history exists Colonoscopy 07/25/2027 07/25/2017 Colorectal Cancer Screening 07/25/2027 DTap/Tdap Vaccines (3 - Td or Tdap) 05/07/2028 05/07/2018, 03/28/2008 Hepatitis B Vaccine Completed 05/31/2014, 12/10/2013, 11/08/2013 Zoster Vaccines Completed 06/25/2019, 12/04/2018 Pneumococcal Vaccine: Pediatrics (0 to 5 Years) and At-Risk Patients (6 to 64 Years) Completed 03/07/2022, 04/29/2008 Influenza Vaccine (FLU shot) Completed 08/10/2024, 06/21/2022, 06/29/2021, Additional history exists HPV (Gardasil) Vaccine Aged Out No lo nger eligible based on patient's age to complete this topic MENINGOCOCCAL (MENACTRA/MENVEO) Aged Out No longer eligible based on patient's age to complete this topic documented as of this encounter Medical Devices Not on filedocumented as of this encounter Results * CBC (08/10/2024 1:15 PM EDT) WBC 10.15 4.00 - 10.80 K/uL 08/10/2024 1:26 PM EDT [facility] RBC 5.75 4.50 - 5.25 M/uL 08/10/2024 1:26 PM EDT [facility] HGB 15.5 14.0 - 16.8 g/dL 08/10/2024 1:26 PM EDT [facility] 56 HCT 45.5 40.0 - 48.4 % 08/10/2024 1:26 PM EDT [facility] 56 MCV 79.1 82.0 - 99.5 fL 08/10/2024 1:26 PM EDT [facility] 56 MCH 27.0 27.0 - 34.0 pg 08/10/2024 1:26 PM EDT [facility] MCHC 34.1 32.0 - 36.0 g/dL 08/10/2024 1:26 PM EDT [facility] 56 RDW 14.7 11.5 - 15.5 % 08/10/2024 1:26 PM EDT [facility] 5602 PLT 239 140 - 400 K/uL 08/10/2024 1:26 PM EDT [facility] 56 MPV 9.3 6.6 - 11.1 fL 08/10/2024 1:26 PM EDT [facility] 56-02 Blood Venous blood specimen / Unknown Venipuncture / Unknown 08/10/2024 1:15 PM EDT 08/10/2024 1:15 PM EDT Jennifer Jimenez DO LAB BLOOD ORDERABLES Fi nal Result [facility] [address] [place] [address] * (ABNORMAL) COMPREHENSIVE METABOLIC PANEL (08/10/2024 1:15 PM EDT) BUN 11 6 - 20 mg/dL 08/10/2024 2:45 PM EDT [facility] CREATININE 1.2 0.6 - 1.2 mg/dL 08/10/2024 2:45 PM EDT [facility] 56 EGFR 74 >=60 mL/min 08/10/2024 2:45 PM EDT [facility] Comment:eGFR is calculated b ased on the CKD-EPI 2020 equation. SODIUM 134(L) 135 - 146 mmol/L 08/10/2024 2:45 PM EDT [facility] POTASSIUM 4.0 3.5 - 5.1 mmol/L 08/10/2024 2:45 PM EDT [facility] CHLORIDE 95(L) 98 - 107 mmol/L 08/10/2024 2:45 PM EDT [facility] CO2 23 22 - 32 mmol/L 08/10/2024 2:45 PM EDT [facility] ANION GAP 16(H) 7 - 15 mmol/L 08/10/2024 2:45 PM EDT [facility] GLUCOSE 132(H) 70 - 120 mg/dL 08/10/2024 2:45 PM EDT [facility] Albumin 4.3 3.8 - 5.0 g/dL 08/10/2024 2:45 PM EDT [facility] AST 23 10 - 50 U/L 08/10/2024 2:45 PM EDT [facility] Alkaline Phosphatase 98 35 - 130 U/L 08/10/2024 2:45 PM EDT [facility] Bilirubin, Total 0.8 <=1.2 mg/dL 08/10/2024 2:45 PM EDT [facility] 56 CALCIUM 9.5 8.4 - 10.2 mg/dL 08/10/2024 2:45 PM EDT [facility] Protein 7.6 6.0 - 8.3 g/dL 08/10/2024 2:45 PM EDT [facility] 56 ALT 17 10 - 50 U/L 08/10/2024 2:45 PM EDT [facility] Blood Venous blood specimen / Unknown Venipuncture / Unknown 08/10/2024 1:15 PM EDT 08/10/2024 1:15 PM EDT Jennifer Jimenez DO LAB BLOOD ORDERABLES Fi nal Result [facility] [address] [facility] [place] [address] documented in this encounter Visit Diagnoses Diagnosis Type 2 diabetes mellitus with diabetic mononeuropathy, with long-term current use of insulin (HCC)- Primary Need for prophylactic vaccination and inoculation against influenza CHARLEEN (obstructive sleep apnea) Obstructive sleep apnea (adult) (pediatric) Moderate binge-eating disorder Acquired hypothyroidism Unspecified hypothyroidism Severe episode of recurrent major depressive disorder, without psychotic features (HCC) documented in this encounter Care Teams Mold Dresser Relationship Specialty Start Date End Date Jennifer Jimenez DO [address] [facility] [place] [address] PCP - General Family Medicine 09/17/18 documented as of this encounter
--- OUTSIDE RECORDS SUMMARY | 2024-08-29 17:23 | External Medical Summary | Summary of Care ---
Author Name Unknown Organization [facility] Address [address] [facility] [place] [address] Phone [phone] Care Team Providers Care Mechanical Test Engineer Name Role Phone Barbara Rodriguez Miryam Primary Care Provider Reason for Visit * Reason Comments Outpatient Testing Encounter Details Date Type Department Care Team (Late st Contact Info) Description 08/10/2024 1:10 PM EDT Laboratory Laboratory [facility] [address] [place] [address] [facility] [address] [place] [address] Acquired hypothyroidism; Diabetic polyneuropathy associated with diabetes mellitus due to underlying condition ([facility]); Type 2 diabetes mellitus with diabetic mononeuropathy, with long-term current use of insulin ([facility]) Allergies Active Allergy Reactions Criticality Noted Date Comments Doxycycline Hives 08/01/2012 Macrolides And Ketolides 07/15/2000 unknown Morphine And Codeine 06/11/2008 GI upset Penicillins 08/29/1999 1969 anaphylaxis documented as of this encounter (statuses as of 08/10/2024) Medications Medication Sig Dispensed Refills Start Date End Date Status Melatonin 3 MG Oral Tablet Disintegrating Take 1 Tablet at bedtime by mouth. 30 Tablet 5 11/06/2021 Active Lactobacillus Extra Strength Oral Capsule Take 1 Capsule daily by mouth. 30 Capsule 11/06/2021 Active Acetaminophen ER 650 MG Oral Tablet Extended Release Take 1 Tablet by mouth every 8 hours as needed for Pain, Moderate. 30 Tablet 11/06/2021 Active metFORMIN HCl ER 500 MG Oral Tablet Extended Release 24 Hour (Glucophage XR) 1 daily with breakfast x 2 weeks then 2 daily with breakfast 60 Tablet 11 06/21/2022 Active OneTouch Delica Lancets 33GIndications:Type 2 diabetes mellitus with hemoglobin A1c goal of less than 8.0% ([facility]) Use as directed 4 times per day 400 Each 3 10/18/2022 Active Nystatin 158568 UNIT/GM External Powder (Nystop)Indications: Tinea cruris Apply topically to affected area 3 times a day. Apply to scrotum 60 g 2 10/30/2023 Active Triamcinolone Acetonide 0.1 % External Cream (Aristocort) Apply topically to affected area 2 times a day. To affected area. vaseline after 453.6 g 5 10/30/2023 Active Lisinopril 20 MG Oral Tablet (Prinivil)Indication s:Type 2 diabetes mellitus with hyperglycemia, with long-term current use of insulin ([facility]),HTN, goal below 140/90 TAKE ONE TABLET BY MOUTH EVERY MORNING 90 Tablet 3 11/07/2023 Active Mounjaro 2.5 MG/0.5ML Subcutaneous Solution Pen-injector (Tirzepatide)Indicat ions:Type 2 diabetes mellitus with hemoglobin A1c goal of less than 8.0% ([facility]),Type 2 diabetes mellitus with hyperglycemia, with long-term current use of insulin ([facility]) Inject 2.5 mg under the skin once a week. 2 mL 11 12/04/2023 Active Additional Information Patient not taking.Reported on 08/10/2024 Clobetasol Propionate 0.05 % External Cream (Temovate)Indication s:Dermatitis Apply topically to affected area 2 times a day. To affected area on feet for up to two weeks. 60 g 1 12/23/2023 Active OneTouch Ultra In Vitro Strip (Glucose Blood) E11.9, use once daily 100 Strip 3 12/23/2023 Active Aspirin Low Dose 81 MG Oral Tablet Delayed Release (aspirin enteric coated)Indications:C erebrovascular disease, arteriosclerotic, post-stroke TAKE TWO TABLETS BY MOUTH EVERY MORNING 180 Tablet 3 01/06/2024 Active Metoprolol Succinate ER 50 MG Oral Tablet Extended Release 24 Hour (toPROL XL)Indications:HTN, goal below 140/90 TAKE ONE TABLET BY MOUTH EVERY MORNING 90 Tablet 3 01/06/2024 Active Rosuvastatin Calcium 40 MG Oral Tablet (Crestor) Take 1 Tablet by mouth in the morning. 03/10/2024 Active Nitroglycerin 0.4 MG Sublingual Tablet Sublingual (Nitrostat) Place 1 Tablet under the tongue every 5 minutes as needed for Pain, Chest. 03/10/2024 Active Isosorbide Mononitrate ER 30 MG Oral Tablet Extended Release 24 Hour (Imdur) Take 1 Tablet by mouth in the morning. 03/10/2024 Active Famotidine 20 MG Oral Tablet (Pepcid)Indications: Gastroesophageal reflux disease without esophagitis TAKE 1 TABLET BY MOUTH IN THE MORNING AND 1 TABLET BEFORE BEDTIME 60 Tablet 11 04/05/2024 Active Insulin Glargine Solostar 100 UNIT/ML Subcutaneous Solution Pen-injector (Lantus SoloStar)Indications :Type 2 diabetes mellitus with hyperglycemia, with long-term current use of insulin (HCC) Inject 40 Units under the skin at bedtime. TITRATING DOSE EVERY 2 WEEKS UNTIL BG LESS THAN 180 (Levemir not being made anymore) (up until max dose of 50 units) 45 mL 05/25/2024 Active Insulin Pen Needle 32G X 8 MMIndications:Type 2 diabetes mellitus with hemoglobin A1c goal of less than 8.0% ([facility]) Use as directed 2 times a day. To inject insulin. 200 Each 3 07/10/2024 Active Ozempic (0.25 or 0.5 MG/DOSE) 2 MG/1.5ML Solution Pen-injector (Semaglutide(0.25 or 0.5MG/DOS)) Inject 0.25 mg under the skin once a week. 1.5 mL 08/10/2024 Active FLUoxetine HCl 40 MG Oral Capsule (PROzac)Indications: Binge eating disorder Take 1 Capsule by mouth in the morning. 90 Capsule 3 08/10/2024 Active Levothyroxine Sodium 175 MCG Oral Tablet (Levoxyl)Indications :Acquired hypothyroidism Take 1 Tablet by mouth daily first thing in the morning. (at least 30 min prior to breakfast or other meds) 90 Tablet 3 08/10/2024 Active documented as of this encounter (statuses as of 08/10/2024) Active Problems Problem Noted Date Diagnosed Date Food insecurity 12/22/2023 Overview: Per [facility] Protocol Chronic ankle pain 05/02/2023 Chronic [...] as of this encounter (statuses as of 08/10/2024) Resolved Problems Problem Noted Date Diagnosed Date [...] as of this encounter (statuses as of 08/10/2024) Immunizations Name Administration Dates Next Due COVID-19 mRNA, LNP-s, No Pre serve, 2-Dose Series (Pfizer) 06/07/2021,12/26/2020 H1N1 2009 Influenza, IM 09/01/2009 Hepatitis B, 20+ yrs 05/31/2014,12/10/2013,11/08 Pneumococcal Conjugate Vacci ne, 20-valent ([id number]) 03/07/2022 Pneumococcal Polysaccharide PPV23 (Pneumovax) 04/29/2008 Seasonal [...] 0.6 oz pure alcohol) [facility]ion wine at [facility]-weekly PHQ-2 Answer Date Recorded PHQ Adult Total [...] 09/30/2024 10:30 AM EST Office Visit Orthopaedics [facility] [address] [place] [address] [address], [address] [place] [address] 03/25/2025 2:30 PM EDT Office Visit Dermatology [facility] [address] [facility] [place] [address] Don Ortiz MD [address] [facility] [place] [address] Pending Results Name Type Priority Associated Diagnoses Date /Time TSH WITH FREE T4 IF INDICATED Lab Routine Acquired hypothyroidism 08/10/2024 1:15 PM EDT HEMOGLOBIN A1C Lab Routine Diabetic polyneuropathy associated with diabetes mellitus due to underlying condition (HCC) 08/10/2024 1:15 PM EDT COMPREHENSIVE METABOLIC PANEL Lab Routine Acquired hypothyroidism 08/10/2024 1:15 PM EDT Health Maintenance Due Date Last Done Comments Hepatitis C Screening 1985 Cologuard 2012 Fecal Occult Blood Test 2012 Sigmoidoscopy 2012 Albumin/Creatinine Ratio 06/02/20212 020, 06/19/2018, 07/11/2017, Additional history exists Diabetic Foot Exam 04/24/2024 04/24/2023, 0 03/07/2022, 08/24/2020, Additional history exists HbA1c 05/06/2024 11/06/2023, 02/0 06/2023, 10/18/2022, Additional history exists COVID-19 Vaccine ( season) 2024 06/07/2021, 12/26/2020 TSH 11/06/2024 11/06/2023, 02/0 06/2023, 11/02/2021, Additional history exists GFR 11/29/2024 11/29/2023, 10/14, 11/21/2022, Additional history exists Diabetic Eye Exam 03/04/2025 03/04/2024, , 02/23/2020, Additional history exists Depression Monitoring 04/02/2025 04/02/2024 Colonoscopy 07/25/2027 07/25/2017 Colorectal Cancer Screening 07/25/2027 DTap/Tdap Vaccines (3 - Td or Tdap) 05/07/2028 05/07/2018, 03/28/2008 Hepatitis B Vaccine Completed 05/31/2014, 12/10/2013, 11/08/2013 Zoster Vaccines Completed 06/25/2019, 12/04/2018 Pneumococcal Vaccine: Pediatrics (0 to 5 Years) and At-Risk Patients (6 to 64 Years) Completed 03/07/2022, 04/29/2008 Influenza Vaccine (FLU shot) Completed , 06/21/2022, 06/29/2021, Additional history exists HPV (Gardasil) Vaccine Aged Out No lo nger eligible based on patient's age to complete this topic MENINGOCOCCAL (MENACTRA/MENVEO) Aged Out No longer eligible based on patient's age to complete this topic documented as of this encounter Medical Devices Not on filedocumented as of this encounter Procedures Procedure Name Priority Date/Time Associated Diagnosis Comments CBC Routine 08/10/2024 1:15 PM EDT Type 2 diabetes mellitus with diabetic mononeuropathy, with long-term current use of insulin (HCC) documented in this encounter Results * CBC (08/10/2024 1:15 PM EDT) WBC 10.15 4.00 - 10.80 K/uL 08/10/2024 1:26 PM EDT [facility]02 RBC 5.75 4.50 - 5.25 M/uL 08/10/2024 1:26 PM EDT [facility]-02 HGB 15.5 14.0 - 16.8 g/dL 08/10/2024 1:26 PM EDT [facility] 56-02 HCT 45.5 40.0 - 48.4 % 08/10/2024 1:26 PM EDT [facility] 56 MCV 79.1 82.0 - 99.5 fL 08/10/2024 1:26 PM EDT [place] [address] MCH 27.0 27.0 - 34.0 pg 08/10/2024 1:26 PM EDT [place] [address] MCHC 34.1 32.0 - 36.0 g/dL 08/10/2024 1:26 PM EDT [place] [address] RDW 14.7 11.5 - 15.5 % 08/10/2024 1:26 PM EDT [address] PLT 239 140 - 400 K/uL 08/10/2024 1:26 PM EDT [address] MPV 9.3 6.6 - 11.1 fL 08/10/2024 1:26 PM EDT [facility] 56 Blood Venous blood specimen / Unknown Venipuncture / Unknown 08/10/2024 1:15 PM EDT 08/10/2024 1:15 PM EDT Jennifer Jimenez DO LAB BLOOD ORDER KWAME [facility] [address] [facility] [address] documented in this encounter Visit Diagnoses Diagnosis Acquired hypothyroidism Unspecified hypothyroidism Diabetic polyneuropathy associated with diabetes mellitus due to underlying condition (HCC) Type 2 diabetes mellitus with diabetic mononeuropathy, with long-term current use of insulin (HCC) documented in this encounter Care Teams Mechanical Test Engineer Relationship Specialty Start Date End Date [facility] [address] PCP - General Family Medicine 09/17/18 documented as of this encounter
--- OUTSIDE RECORDS SUMMARY | 2024-08-29 17:23 | External Medical Summary | Summary of Care ---
Author Name Unknown Organization [facility] Address [address] [place] [address] Phone [phone] Care Team Providers Care Product Marketer Name Role Phone Barbara Rodriguez Miryam Primary Care Provider Reason for Visit * Reason Comments Outpatient Testing Encounter Details Date Type Department Care Team (Late st Contact Info) Description 08/10/2024 1:10 PM EDT Laboratory Laboratory [facility] [address] [place] [address] [facility] [address] [place] [address] Acquired hypothyroidism; Diabetic polyneuropathy associated with diabetes mellitus due to underlying condition ([facility]); Type 2 diabetes mellitus with diabetic mononeuropathy, with long-term current use of insulin ([facility]) Allergies Active Allergy Reactions Criticality Noted Date [...] hemoglobin A1c goal of less than 8.0% ([facility]) Use as directed 4 times per day 400 Each 3 10/18/2022 Active Nystatin 104610 UNIT/GM External Powder (Nystop)Indications: Tinea cruris Apply [...] hyperglycemia, with long-term current use of insulin ([facility]),HTN, goal below 140/90 TAKE ONE TABLET BY MOUTH EVERY MORNING 90 Tablet 3 11/07/2023 Active Mounjaro 2.5 MG/0.5ML Subcutaneous Solution Pen-injector (Tirzepatide)Indicat ions:Type 2 diabetes mellitus with hemoglobin A1c goal of less than 8.0% ([facility]),Type 2 diabetes mellitus with hyperglycemia, with long-term current use of insulin ([facility]) Inject 2.5 mg under the skin once [...] hemoglobin A1c goal of less than 8.0% ([facility]) Use as directed 2 times a day. [...] Diagnosed Date Food insecurity 12/22/2023 Overview: Per [facility] Protocol Chronic ankle pain 05/02/2023 Chronic [...] yrs 05/31/2014,12/10/2013,11/08 Pneumococcal Conjugate Vacci ne, 20-valent ([id number]) 03/07/2022 Pneumococcal Polysaccharide PPV23 (Pneumovax) 04/29/2008 Seasonal [...] 0.6 oz pure alcohol) communion wine at [facility] PHQ-2 Answer Date Recorded PHQ Adult [...] 09/30/2024 10:30 AM EST Office Visit Orthopaedics [facility] [address] [place] [address] [address] [place], [address] [place] [address] 03/25/2025 2:30 PM EDT Office Visit Dermatology [facility] [address] [facility] [place] [address] Don Ortiz MD [address] [facility] [place] [address] Pending Results Name Type Priority Associated Diagnoses [...] 5.25 M/uL 08/10/2024 1:26 PM EDT LABORATORY [facility] 56-02 HGB 15.5 14.0 - 16.8 g/dL 08/10/2024 1:26 PM EDT LABORATORY [facility] 56-02 HCT 45.5 40.0 - 48.4 % 08/10/2024 1:26 PM EDT [facility] 56 MCV 79.1 82.0 - 99.5 fL 08/10/2024 1:26 PM EDT [place] [address] MCH 27.0 27.0 - 34.0 pg 08/10/2024 1:26 PM EDT [place] [address] MCHC 34.1 32.0 - 36.0 g/dL 08/10/2024 1:26 PM EDT [place] [address] RDW 14.7 11.5 - 15.5 % 08/10/2024 1:26 PM EDT [address]T 239 140 - 400 K/uL 08/10/2024 1:26 PM EDT [address] MPV 9.3 6.6 - 11.1 fL 08/10/2024 1:26 PM EDT [facility] 56 Blood Venous blood specimen / Unknown Venipuncture / Unknown 08/10/2024 1:15 PM EDT 08/10/2024 1:15 PM EDT Jennifer Jimeenz DO LAB BLOOD ORDER KWAME [facility] [address] [facility] [address] documented in this encounter Visit Diagnoses Diagnosis Acquired hypothyroidism Unspecified hypothyroidism Diabetic polyneuropathy associated with diabetes mellitus due to underlying condition (HCC) Type 2 diabetes mellitus with diabetic mononeuropathy, with long-term current use of insulin (HCC) documented in this encounter Care Teams Product Marketer Relationship Specialty Start Date End Date [facility] Jimenez [facility] [address] [facility] [address] PCP - General Family Medicine 09/17/18 documented as of this encounter
--- OUTSIDE RECORDS SUMMARY | 2024-08-29 17:23 | External Medical Summary ---
Author Name Unknown Address Unknown Organization [id number]:LABORATORY [facility] - [address] [place] [address] Laboratory Report Ordering Provider Test Date Status ELVIE CAMPA 08/10/2024 13:15:26 Final Observation Date Value Abnormality Reference (Units ) Status HbA1C 08/10/2024 13:15:26 10.7 Above high normal 4. 0-5.6 (%) Final The use of HbA1c to monitor glycemic status is based on normal hemoglobin and HbA composition. This test should not be used in patients with abnormal hemoglobin that affects the half life of the red blood cell or the in vivo glycation rates. Glucose, estimated average 08/10/2024 13:15:26 260 Above high normal <126 (mg/dL) Madhu yang Performing Location LABORATORY [facility] - [address] [place] [address]
--- OUTSIDE RECORDS SUMMARY | 2024-08-29 17:23 | External Medical Summary ---
Author Name Unknown Address Unknown Organization [id number]:LABORATORY [facility] - [address] [place] [address] Laboratory Report Ordering Provider Test Date Status ELVIE CAMPA 08/10/2024 13:15:26 Final Observation Date Value Abnormality Reference (Units ) Status T4, Free 08/10/2024 13:15:26 0.4 Below low normal 0.9 -1.7 (ng/dL) Final Performing Location LABORATORY [facility] - [address] [place] [address]
--- OUTSIDE RECORDS SUMMARY | 2024-08-29 17:23 | External Medical Summary | Summary of Care ---
Author Name Unknown Organization [facility] Address [address] [facility] [place] [address] Phone [phone] Care Team Providers Care Commercial Agent Name Role Phone Jennifer Jimenez DO Primary Care Provider Reason for Visit * Reason Comments Follow Up Encounter Details Date Type Department Care Team (Latest Contact Info) Description 08/19/2024 11:40 AM EST Office Visit [facility] [address] [place] [address] Jennifer Jimenez DO [address] [facility] [place] [address] Moderate binge-eating disorder*; Diabetic polyneuropathy associated with diabetes mellitus due to underlying condition ([facility]); DYSLIPIDEMIA, GOAL LDL BELOW 100; HTN, goal below 140/90; Major depressive disorder, recurrent episode, moderate ([facility]); Severe obstructive sleep apnea; Type 2 diabetes mellitus with hemoglobin A1c goal of less than 8.0% ([facility]); Ulnar neuropathy at elbow, left; Radial neuropathy, left Allergies Active Allergy Reactions Criticality Noted Date Comments Doxycycline Hives 08/01/2012 Macrolides And Ketolides 07/15/2000 unknown Morphine And Codeine 06/11/2008 GI upset Penicillins 08/29/1999 1969 anaphylaxis documented as of this encounter (statuses as of 08/20/2024) Medications Melatonin 3 MG Oral Tablet Disintegrating [...] 60 Tablet 11 06/21/20 22 Active OneTouch Yady Lancets 33GIndications:Typ e 2 diabetes mellitus with hemoglobin A1c goal of less than 8.0% ([facility]) Use as directed 4 times per day 400 Each 3 10/18/19 23 Active Nystatin 255861 UNIT/GM External Powder (Nystop)Indication s:Tinea cruris Apply topically to affected area 3 times a day. Apply to scrotum 60 g 2 10/30/19 24 Active Triamcinolone Acetonide 0.1 % External Cream (Aristocort) Apply topically to affected area 2 times a day. To affected area. vaseline after 453.6 g 5 10/30/19 24 Active Lisinopril 20 MG Oral Tablet (Prinivil)Indicati ons:Type 2 diabetes mellitus with hyperglycemia, with long-term current use of insulin ([facility]),HTN, goal below 140/90 TAKE ONE TABLET BY MOUTH EVERY MORNING 90 Tablet 3 11/07/19 24 Active Mounjaro 2.5 MG/0.5ML Subcutaneous Solution Pen-injector (Tirzepatide)Indic ations:Type 2 diabetes mellitus with hemoglobin A1c goal of less than 8.0% ([facility]),Type 2 diabetes mellitus with hyperglycemia, with long-term current use of insulin ([facility]) Inject 2.5 mg under the skin once a week. 2 mL 12/04/19 24 025 Active Clobetasol Propionate 0.05 % External Cream (Temovate)Indicati ons:Dermatitis Apply topically to affected area 2 times a day. To affected area on feet for up to two weeks. 60 g 1 12/23/19 24 Active OneTouch Ultra In Vitro Strip (Glucose Blood) E11.9, use once daily 100 Strip 3 12/23/19 24 Active Aspirin Low Dose 81 MG Oral Tablet Delayed Release (aspirin enteric coated)Indications :Cerebrovascular disease, arteriosclerotic, post-stroke TAKE TWO TABLETS BY MOUTH EVERY MORNING 180 Tablet 3 01/06/20 24 Active Metoprolol Succinate ER 50 MG Oral Tablet Extended Release 24 Hour (toPROL XL)Indications:HTN , goal below 140/90 TAKE ONE TABLET BY MOUTH EVERY MORNING 90 Tablet 3 01/06/20 Active Rosuvastatin Calcium 40 MG Oral Tablet (Crestor) Take 1 Tablet by mouth in the morning. 03/10/20 Active Nitroglycerin 0.4 MG Sublingual Tablet Sublingual (Nitrostat) Place 1 Tablet under the tongue every 5 minutes as needed for Pain, Chest. 03/10/20 Active Isosorbide Mononitrate ER 30 MG Oral Tablet Extended Release 24 Hour (Imdur) Take 1 Tablet by mouth in the morning. 03/10/20 Active Famotidine 20 MG Oral Tablet (Pepcid)Indication s:Gastroesophageal reflux disease without esophagitis TAKE 1 TABLET BY MOUTH IN THE MORNING AND 1 TABLET BEFORE BEDTIME 60 Tablet 11 04/05/20 Active Insulin Glargine Solostar 100 UNIT/ML Subcutaneous Solution Pen-injector (Lantus SoloStar)Indicatio ns:Type 2 diabetes mellitus with hyperglycemia, with long-term [...] To inject insulin. 200 Each 3 07/10/20 24 Active Ozempic (0.25 or 0.5 MG/DOSE) 2 MG/1.5ML Solution Pen-injector (Semaglutide(0.25 or 0.5MG/DOS))Indicat ions:Type 2 diabetes mellitus with diabetic mononeuropathy, with long-term current use of insulin ([facility]) Inject 0.25 mg under the skin once a week. 1.5 mL 08/10/20 24 Active FLUoxetine HCl 40 MG Oral Capsule (PROzac)Indication s:Binge eating disorder,Severe episode of recurrent major depressive disorder, without psychotic features (HCC) Take 1 Capsule by mouth in the morning. 90 Capsule 3 08/10/20 24 Active Levothyroxine Sodium 175 MCG Oral Tablet (Levoxyl)Indicatio ns:Acquired hypothyroidism Take 1 Tablet by mouth daily first thing in the morning. (at least 30 min prior to breakfast or other meds) 90 Tablet 3 08/10/20 Active Clotrimazole 1 % External Cream (Lotrimin) APPLY ONE APPLICATION EXTERNAL THREE TIMES A DAY 07/19/20 Active documented as of this encounter (statuses as of 08/20/2024) Active Problems Problem Noted Date Diagnosed Date [...] as of this encounter (statuses as of 08/20/2024) Resolved Problems Problem Noted Date Diagnosed Date [...] as of this encounter (statuses as of 08/20/2024) Immunizations Name Administration Dates Next Due COVID-19 mRNA, LNP-s, No Pre serve, 2-Dose Series (Minitrade) 06/07/2021,12/26/2020 H1N1 2009 Influenza, IM 09/01/2009 Hepatitis B, 20+ yrs 05/31/2014,12/10/2013,11/08 Pneumococcal Conjugate Vacci ne, 20-valent ([id number]) 03/07/2022 Pneumococcal Polysaccharide PPV23 (Pneumovax) 04/29/2008 Seasonal [...] 0.6 oz pure alcohol) communion wine at [facility] PHQ-2 Answer Date Recorded PHQ Adult Total [...] No 12/04/2023 Does the household have a [facility] source [facility] income? 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 Not on file Not on file documented as of this encounter Last Filed Vital Signs Vital Sign Reading Time Taken Comments Blood Pressure 132/82 08/19/2024 11:59 AM EST Pulse 90 08/19/2024 11:59 AM EST Temperature 36.4 C (97.6 F) 08/19/2024 11:[address] Respiratory Rate 18 08/19/2024 11:59 AM EST Oxygen Saturation 96% 08/19/2024 11:59 AM EST Inhaled Oxygen Concentration - - Weight 117.4 kg (258 lb 12 oz) 08/19/2024 11:59 AM EST Height - - Body Mass Index 43.06 08/10/2024 12:08 PM EDT documented in this encounter Patient Instructions * Patient Instructions* Jennifer Jimenez DO - 08/19/2024 12:21 PM EST MY back fax number is [phone]. Have [facility] paperwork addressed to me [phone] Crisis hotline. Crisis/Emergency Services [facility] provides crisis, mental health and/or drug and alcohol hotline services for [facility]. Individuals, family members, providers, community agencies and/or law enforcement are all welcome to call the line to discuss the crisis and be provided support and resources. The crisis line is . A Walk In Center is now available at [address] [facility] thatis open 24 hours a day, 7 days a week. The Walk In Center is available similar to crisis line and provides necessary supports and resources in their safe and confidential location. [facility] also provides mobile crisis intervention services for individuals who may be having a mental health crisis. This support is available to anyone in [facility]. Please contact the crisisline at to request this service 24 hours, 7 days a week. documented in this encounter Progress Notes * Jennifer Jimenez DO - 08/19/2024 12:11 PM EST Subjective: Ten Corbin is a 59 year old male. Chief Complaint Patient presents with Follow Up HPI: Ten [place] presents for 1 week recheck. Patient complains of feeling like his heart is pounding, loss of appetite, and some breathing problems. Medications & HM reviewed. Patient has a longstanding history of significant depression, much worse after the loss of his wifea few years ago, noncompliance with medications, only taking Lantus insulin currently. He is havingproblems with decreased function of his left arm including both radial and ulnar neuropathy and is seeing orthopedics for that. He has a preop consult scheduled for 09 30. He had lab work done a weekago and we are starting with a hemoglobin A1c of 10.7. This is improved from his previous A1c of over 12 earlier this year. We tried to get him a continuous blood glucose monitor last week but he hasnot started it yet. He is lacking motivation to do so. He is not checking his sugars with fingerstick either, he says he does not know where his meter is, I said I would send in another meter if you would use it but he is not motivated to do so. Discussed that it is very important to check sugars regularly especially if taking insulin and trying to adjust medications to get to target A1c of lessthan 8 for surgery. Patient expresses understanding, however lacks motivation to change. He did much better when he was taking an SSRI, but has no motivation to start that. He has had thoughts of hurting himself, but states that he would not do so he states that although he is very depressed he would not hurt himself. He says that he does better when he lives with somebody, and we discussed trying to see if his brother would come live with him or at least stop by on a regular basis. Discussed that a lot of his symptoms are due to panic attack type symptoms from severe anxiety depression, as well as significant hypothyroidism, and uncontrolled diabetes. I believe he will be much happier and feel much better if we are able to control these to some degree but he is the 1 who has to start the medication. Discussed trying to do 1 thing a day, currently on FMLA for left arm weakness, left legweakness uses a cane, and some cognitive dysfunction which appears better than last week. He is outcurrently on FMLA trying to get diabetes controlled, so that he can have his left arm fix currentlyit is nonfunctional. He has had a stroke previously and has some residual left-sided weakness to beg in with. He says when he stands to cook his left hip will give out on him. He works for the [employer] but does not feel safe doing so, he is wondering if she he should be medically retired. Discussed that although I can provide FMLA at this time, I do not do permanent disability he would have to go through the social security disability office to be evaluated by their physician. We have not receivedFMLA paperwork from yet, he again tried to call HR during our visit, I spoke to them last time and to get the paperwork going, patient is not sure what is going on, he has not signed anything himself, or given any details as far as absence. I have provided are back fax number for the patient so that he can share with the in store marketing representative when she calls him back. He says he does not want to have a psychiatric admission would rather manage as an outpatient, strongly advised him to start his fluoxetine which will really help him and I believe help with motivation for everything else. Unsure if he has the motivation to do so. Denies self-harm at this time. Discussed emergency crisis number which can be called 05/05, given number on after visit summary paper. Strongly encouraged patient to roll picker medications today which he did not do last week. He says he can afford them. Discussed diet has cut out a lot of sugar ice tea, discussed trying to eat more at home, possibly frozen foods with low-sodium if he is unable to cook. He usually just eats out fast food for every meal, now just eating 1 meal a day, says he can not tolerate the [place] anymore. He used to be able to eat a walker without any problems now he can not. PHM: Patient Active Problem List Diagnosis Tinea cruris CEREBROVASCULAR DZ, POST-STROKE DYSLIPIDEMIA, GOAL LDL BELOW [...] Chronic pain of left knee Food insecurity Ulnar neuropathy at elbow, left Radial neuropathy, left Current Outpatient Medications Medication Sig Dispense Refill Clotrimazole 1 % External Cream (Lotrimin) APPLY ONE APPLICATION EXTERNAL THREE TIMES A DAY FLUoxetine HCl 40 MG Oral Capsule (PROzac) [...] up to two weeks. 60 g 1 Love With FoodTouch Ultra In Vitro Strip (Glucose Blood) E11.9, use once daily 100 Strip 3 Mounjaro 2.5 MG/0.5ML Subcutaneous Solution Pen-injector (Tirzepatide) Inject 2.5 mg under the skinonce a week. 2 mL 11 Lisinopril 20 MG Oral Tablet (Prinivil) TAKE ONE TABLET BY MOUTH EVERY MORNING 90 Tablet 3 Nystatin 913883 UNIT/GM External Powder (Nystop) Apply topically to affected area 3 times a day. Apply to scrotum 60 g 2 Triamcinolone Acetonide 0.1 % External Cream (Aristocort) Apply topically to affected area 2 times a day. To affected area. vaseline after 453.6 g 5 OneTouch Delica Lancets 33G Use as directed [...] at bedtime by mouth. 30 Tablet 5 No current facility-administered medications for this visit. Review of patient's allergies indicates: Allergen Reactions Doxycycline Hives Macrolides And Ketolides unknown Morphine And Codeine GI upset Penicillins 1969 anaphylaxis Objective: BP 132/82 | Pulse 90 | Temp 36.4 C (97.6 F) (Tympanic) | Resp 18 | Wt 117.4 kg (258 lb 12 oz) |SpO2 96% | BMI 43.06 kg/m | BSA 2.32 m Physical Exam: Neck: supple, no adenopathy, no bruits, thyroid normal size, non-tender, without nodularity Heart: regular rate & rhythm, no murmur, and no gallops Lungs: chest symmetric with normal AP diameter, no chest deformities noted, no chest wall tenderness, lungs clear to auscultation Pulses: carotid=2/4 w/o bruits Extremities: less than 2 second capillary refill, no joint deformities, effusion, or inflammation, has decreased movement and sensation of left forearm and wrist. ASSESSMENT/PLAN: Patient qualifies for FMLA at this time due to unable to use his left arm at the [employer] due to radial and ulnar neuropathy. Also has severe depression, anxiety with panic attacks currently. Currently denies suicidal or homicidal ideation. I would like to try to get diabetes and thyroid under control so patient can have surgery to fix his left arm, to do that patient needs to restart all of his medications and check sugars on a regular basis. Strongly encouraged him to start thefluoxetine which hopefully will help with anxiety, panic, depression, and motivation as it has in the past. Also strongly encouraged him to restart his thyroid medication as he is complaining of being tired and sleeping all the time, very fatigued. Also encouraged him to try Ozempic and check sugars regularly. We need to get sugars down safely without lows so it is very important he check sugars since he is on insulin so we can adjust insulin as needed. Hopefully we can get diabetes under control in the next month so that patient is ready to go for surgery. The max FMLA we can provide at thistime is 3 months at a time and plan to use half of it to get depression anxiety diabetes and thyroid under control and prepared for surgery, and hopefully the second half for post surgical recovery. Encouraged patient to use crisis number if needed. Discussed that there is nothing I can do to help h im feel better or get his medical problems under control unless he takes his medications and checkshis sugars. We are awaiting FMLA paperwork from human resources. I gave the patient our back fax number to share with HR. We were unable to get in contact with the sales representatives handling his case onthe phone during his visit, we left a message for her to call him back. Moderate binge-eating disorder (Primary) Diabetic polyneuropathy associated with diabetes mellitus due to underlying condition (HCC) DYSLIPIDEMIA, GOAL LDL BELOW 100 HTN, goal below 140/90 Major depressive disorder, recurrent episode, moderate (HCC) Severe obstructive sleep apnea Type 2 diabetes mellitus with hemoglobin A1c goal of less than 8.0% (HCC) Ulnar neuropathy at elbow, left Radial neuropathy, left Follow Up: Return in about 4 weeks (around 09/16/2024), or if symptoms worsen or fail to improve, for Clinic Visit for preop clearance. | For: Clinic Visit for preop clearance 35 min spent with patient, reviewing history, performing physical exam, reviewing labs, studies, specialist OVNs, and reports, educating and coordinating care, discussing treatment And completing this note today. Jennifer Jimenez DO * Genet Mayers CMA - 08/19/2024 12:06 PM EST Patient made multiple remarks regarding harming himself in a 'joking manner' including "slitting his wrists to relieve some blood pressure." documented in this encounter Nursing Notes * Gale Arreaga NA - 08/19/2024 11:55 AM EST Ten Corbin presents for 1 week recheck. Patient complains of feeling like his heart is pounding, loss of appetite, and some breathing problems. Medications & HM reviewed. documented in this encounter Plan of Treatment Upcoming Encounters Date Type Department Care Team (Late st Contact Info) Description 09/30/2024 10:30 AM EST Office Visit Orthopaedics [facility] [address] [place] [address] [place], [address] [place] [address] 10/12/2024 7:30 AM EST Office Visit [facility] [address] [place] [phone] Jenny Avery CRNP [address] [place] [address] 03/25/2025 2:30 PM EDT Office Visit Dermatology [facility] [address] [facility] [place] [address] Don Ortiz MD [address] [facility] [place], [place] [address] Health Maintenance Due Date Last Done Comments [...] of this encounter Visit Diagnoses Diagnosis Moderate binge-eating disorder- Primary Diabetic polyneuropathy associated with diabetes mellitus due to underlying condition (HCC) DYSLIPIDEMIA, GOAL LDL BELOW 100 Other and unspecified hyperlipidemia HTN, goal below 140/90 Unspecified essential hypertension Major depressive disorder, recurrent episode, moderate (HCC) Major depressive disorder, recurrent episode, moderate Severe obstructive sleep apnea Obstructive sleep apnea (adult) (pediatric) Type 2 diabetes mellitus with hemoglobin A1c goal of less than 8.0% (HCC) Ulnar neuropathy at elbow, left Radial neuropathy, left documented in this encounter Care Teams Commercial Agent Relationship Specialty Start Date End Date Jennifer Jimenez DO [address] [place], [place] [id number] PCP - General Family Medicine 09/17/18 documented as of this encounter
--- OUTSIDE RECORDS SUMMARY | 2024-08-29 17:23 | External Medical Summary | Summary of Care ---
Author Name Unknown Organization [facility] Address [address] [place] [address] Phone [phone] Care Team Providers Care Public Speaking Coach Name Role Phone Jennifer Jimenez Primary Care Provider Encounter Details Date Type Department Care Team (Late st Contact Info) Description 08/10/2024 3:00 PM EDT Office Visit Pharmacy, [facility] [address] [place] [address] Pharmacist1, [facility] [address] [facility] [place] [id number] Type 2 diabetes mellitus with hemoglobin A1c goal of less than 8.0% ([facility])* Allergies Active Allergy Reactions Criticality [...] hemoglobin A1c goal of less than 8.0% ([facility]) Use as directed 4 times per day 400 Each 3 10/18/2022 Active Nystatin 829337 UNIT/GM External Powder (Nystop)Indications: Tinea cruris Apply [...] hyperglycemia, with long-term current use of insulin ([facility]),HTN, goal below 140/90 TAKE ONE TABLET BY MOUTH EVERY MORNING 90 Tablet 3 11/07/2023 Active Mounjaro 2.5 MG/0.5ML Subcutaneous Solution Pen-injector (Tirzepatide)Indicat ions:Type 2 diabetes mellitus with hemoglobin A1c goal of less than 8.0% ([facility]),Type 2 diabetes mellitus with hyperglycemia, with long-term current use of insulin ([facility]) Inject 2.5 mg under the [...] hyperglycemia, with long-term current use of insulin ([facility]) Inject 40 Units under the skin at bedtime. TITRATING DOSE EVERY 2 WEEKS UNTIL BG LESS THAN 180 (Levemir not being made anymore) (up until max dose of 50 units) 45 mL 05/25/2024 Active Insulin Pen Needle 32G X 8 MMIndications:Type 2 diabetes mellitus with hemoglobin A1c goal of less than 8.0% ([facility]) Use as directed 2 times a day. To inject insulin. 200 Each 3 07/10/2024 Active Ozempic (0.25 or 0.5 MG/DOSE) 2 MG/1.5ML Solution Pen-injector (Semaglutide(0.25 or 0.5MG/DOS))Indicatio ns:Type 2 diabetes mellitus with diabetic mononeuropathy, with long-term current use of insulin ([facility]) Inject 0.25 mg under the skin once a week. 1.5 mL 08/10/2024 Active FLUoxetine HCl 40 MG Oral Capsule (PROzac)Indications: Binge eating disorder,Severe episode of recurrent major depressive [...] yrs 05/31/2014,12/10/2013,11/08 Pneumococcal Conjugate Vacci ne, 20-valent ([id number]) 03/07/2022 Pneumococcal Polysaccharide PPV23 (Pneumovax) 04/29/2008 Seasonal [...] 0.6 oz pure alcohol) communion wine at catholic-weekly PHQ-2 Answer Date Recorded PHQ Adult Total [...] on file documented as of this encounter Progress Notes * Agapito Hernandez RPh - 08/10/2024 3:10 PM EDT Medication Therapy [facility] - Diabetes Management Progress Note Ten Corbin, identified by name and date of , is a 59 year old male being seen for diabetesmanagement/education. Patient presents for CGM placement. Patient works at [employer] and cannot wear a CGM without priorapproval into the [place]itent[place] area. He cannot take his cell phone in either. I gave him the CGM and did the below teaching on how to place it and read it. He will ask for approval and then place it and wear for 10 days. Dexcom G7: Patient Education and Review Patient provided G7 CGM components and training manual. Reviewed the following information with patient using provided combat engineer literature: Introduced CGM and components How to set up display device (cell phone with Dexcom [id number]) Follow the onscreen instructions on head pastry chef or appt to enter: Low and high alerts Sensor code Insert sensor Choose sensor site Insert sensor with applicator Pair sensor Wait for sensor to pair Tap start sensor No readings during the 30 minute warmup Keep display device within 20 feet during warmup Home screen overview Review home screen overview in using your G7 with patient Home screen shows Sensor glucose readings Trend arrow Trend graph High and low alerts Treatment decisions Review treatment decisions in using your G7 with patient Use your meter if: Your G7 readings don't match your symptoms Your G7 doesn't show both a number and an arrow Ending Sensor Session Review ending your sensor session in using your G7 with patient Remove sensor from body Patient set up personal device and self-inserted sensor and transmitter in office independently of pharmacist involvement other than for material review and support. I spent a total of 20-29 minutes (exact time 23 mins) on the date of service in preparation, delivery, and documentation of the care provided to Ten Corbin excluding any time spent in the performance of separately billed services or time spent by another provider/QHP. Agapito Logan RPh, CDE Clinical Pharmacist - Camera Systems Engineer Medication Therapy Management [facility] 08/10/2024, 3:12 PM documented in this encounter Plan of Treatment Upcoming Encounters Date Type Department Care Team (Late st Contact Info) Description 09/30/2024 10:30 AM EST Office Visit Orthopaedics [facility] [address] [place] [address] Ten Sadler, DO [address] [place] [address] 10/07/2024 1:00 PM EST Office Visit Sleep Disorders Ctr [facility] [address] [place] [id number] Elisa Chappell, DO [address] [place] [address] 03/25/2025 2:30 PM EDT Office Visit Dermatology [facility] [address] [facility] [place] [address] Don Ortiz MD [address] [facility] [place] [address] Health Maintenance Due Date Last Done Comments [...] 11/06/2023, 02/0 06/2023, 11/02/2021, Additional history exists Diabetic Eye Exam 03/04/2025 03/04/2024, , 02/23/2020, Additional history exists Depression Monitoring 04/02/2025 04/02/2024 GFR 08/10/2025 08/10/2024, 11/13, 11/06/2023, Additional history exists Colonoscopy 07/25/2027 07/25/2017 Colorectal [...] hemoglobin A1c goal of less than 8.0% (HCC)- Primary documented in this encounter Care Teams Public Speaking Coach Relationship Specialty Start Date End Date Jennifer Jimenez DO [address] [place] [address] PCP - General Family Medicine 09/17/18 documented as of this encounter
--- OUTSIDE RECORDS SUMMARY | 2024-08-29 17:23 | External Medical Summary ---
Author Name Unknown Address Unknown Organization [id number]:[facility] [address] [facility] [place] [address] Laboratory Report Ordering Provider Test Date Status ELVIE CAMPA 08/10/2024 13:15:26 Final Observation Date Value Abnormality Reference (Units ) Status TSH 08/10/2024 13:15:26 17.90 Above high normal 0. 27-4.20 (uIU/mL) Final Performing Location [facility] [place] - [address] [facility] [place] [address]
--- OUTSIDE RECORDS SUMMARY | 2024-08-29 17:23 | External Medical Summary ---
Author Name Unknown Address Unknown Organization [id number]:[facility] - [address] [place] [address] Laboratory Report Ordering Provider Test Date Status ELVIE CAMPA 08/10/2024 13:15:26 Final Observation Date Value Abnormality Reference (Units ) Status BUN 08/10/2024 13:15:26 11 6-20 (mg/dL) Final Creatinine 08/10/2024 13:15:26 1.2 0.6-1.2 (mg/dL) Final Glomerular filtration rate/1.73 sq M.predicted [Volume Rate/Area] in Serum, Plasma or Blood by Creatinine-based formula (CKD-EPI) 08/10/2024 13:15:26 74 >=60 (mL/min) Final eGFR is calculated based on the CKD-EPI 2020 equation. Sodium 08/10/2024 13:15:26 134 Below low normal 135 -146 (mmol/L) Final Potassium 08/10/2024 13:15:26 4.0 3.5-5.1 (m mol/L) Final Cl 08/10/2024 13:15:26 95 Below low normal 98- 107 (mmol/L) Final CO2 08/10/2024 13:15:26 23 22-32 (mmo l/L) Final Anion gap 08/10/2024 13:15:26 16 Above high normal 7- 15 (mmol/L) Final Glucose 08/10/2024 13:15:26 132 Above high normal 70 -120 (mg/dL) Final Albumin 08/10/2024 13:15:26 4.3 3.8-5.0 (g /dL) Final AST (Aspartate aminotransferase) 08/10/2024 13:15:26 23 10-50 (U/L) Fin al Alk Phos 08/10/2024 13:15:26 98 35-130 (U/ L) Final Bilirubin, Total 08/10/2024 13:15:26 0.8 <=1 .2 (mg/dL) Final Calcium 08/10/2024 13:15:26 9.5 8.4-10.2 ( mg/dL) Final Protein 08/10/2024 13:15:26 7.6 6.0-8.3 (g /dL) Final ALT (Alanine aminotransferase) 08/10/2024 13:15:26 17 10-50 (U/L) Madhu yang Performing Location [facility] [address] [place] [address]
--- OUTSIDE RECORDS SUMMARY | 2024-08-29 17:23 | External Medical Summary | Summary of Care ---
Author Name Unknown Organization [facility] Address [address] [facility] [facility] [place] [place] [address] Phone [phone] Care Team Providers Care Director Paid Media Name Role Phone Jennifer Jimenez DO Primary Care Provider Reason for Visit * Reason Comments NEW PATIENT L arm Encounter Details Date Type Department Care Team (Late st Contact Info) Description 07/27/2024 3:15 PM EDT Office Visit Orthopaedics [facility] [address] [place] [address] SharerGenna PA-C [address] [place] [address] Numbness and tingling in left hand* Allergies Active Allergy Reactions Criticality Noted Date Comments Doxycycline Hives 08/01/2012 Macrolides And Ketolides 07/15/2000 unknown Morphine And Codeine 06/11/2008 GI upset Penicillins 08/29/1999 1969 anaphylaxis documented as of this encounter (statuses as of 07/30/2024) Medications Medication Sig Dispensed Refills Start Date [...] goal of less than 8.0% ([facility]) Use as directed 4 times per day 400 Each 3 10/18/2022 Active Nystatin 799638 UNIT/GM External Powder (Nystop)Indications:T inea cruris Apply [...] long-term current use of insulin ([facility]),HTN, goal below 140/90 TAKE ONE TABLET BY MOUTH EVERY MORNING 90 Tablet 3 11/07/2023 Active Mounjaro 2.5 MG/0.5ML Subcutaneous Solution Pen-injector (Tirzepatide)Indicati ons:Type 2 diabetes mellitus with hemoglobin A1c goal of less than 8.0% ([facility]),Type 2 diabetes mellitus with hyperglycemia, with long-term current use of insulin ([facility]) Inject 2.5 mg under the skin once a week. 2 mL 11 12/04/2023 12/03/2024 Active FLUoxetine HCl 40 MG Oral Capsule (PROzac)Indications:B ally eating disorder Take 1 Capsule by mouth in the morning. 30 Capsule 5 12/23/2023 Active Clobetasol Propionate 0.05 % External Cream (Temovate)Indications :Dermatitis Apply topically to affected area 2 times a day. To affected area on feet for up to two weeks. 60 g 1 12/23/2023 Active Levothyroxine Sodium 175 MCG Oral Tablet (Levoxyl)Indications: Acquired hypothyroidism Take 1 Tablet by mouth daily first thing in the morning. (at least 30 min prior to breakfast or other meds) 90 Tablet 3 12/23/2023 Active OneTouch Ultra In Vitro Strip (Glucose Blood) E11.9, use once daily 100 Strip 3 12/23/2023 Active Aspirin Low Dose 81 MG Oral Tablet Delayed Release (aspirin enteric coated)Indications:Ce rebrovascular disease, arteriosclerotic, post-stroke TAKE TWO TABLETS BY MOUTH EVERY MORNING 180 Tablet 3 01/06/2024 Active Metoprolol Succinate ER 50 MG Oral Tablet Extended Release 24 Hour (toPROL XL)Indications:HTN, goal below 140/90 TAKE ONE TABLET BY MOUTH EVERY MORNING 90 Tablet 3 01/06/2024 Active buPROPion HCl ER (XL) 150 MG Oral Tablet Extended Release 24 Hour (Wellbutrin XL)Indications:Severe episode of recurrent major depressive disorder, without psychotic features (HCC) Take 1 Tablet by mouth in the morning. 90 Tablet 3 01/19/2024 Active amLODIPine Besylate 5 MG Oral Tablet (Norvasc) Take 1 Tablet by mouth in the morning. 03/10/2024 Active Rosuvastatin Calcium 40 MG Oral Tablet [...] 03/10/2024 Active Famotidine 20 MG Oral Tablet (Pepcid)Indications:G astroesophageal reflux disease without esophagitis TAKE 1 TABLET BY MOUTH IN THE MORNING AND 1 TABLET BEFORE BEDTIME 60 Tablet 11 04/05/2024 Active Insulin Glargine Solostar 100 UNIT/ML Subcutaneous Solution Pen-injector (Lantus SoloStar)Indications: Type 2 diabetes mellitus with hyperglycemia, with long-term current use of insulin ([facility]) Inject 40 Units under the skin at bedtime. TITRATING DOSE EVERY 2 WEEKS UNTIL BG LESS THAN 180 (Levemir not being made anymore) (up until max dose of 50 units) 45 mL 05/25/2024 Active Insulin Pen Needle 32G X 8 MMIndications:Type 2 diabetes mellitus with hemoglobin A1c goal of less than 8.0% ([facility]) Use as directed 2 times a day. To inject insulin. 200 Each 3 07/10/2024 Active documented as of this encounter (statuses as of 07/30/2024) Active Problems Problem Noted Date Diagnosed Date Food insecurity 12/22/2023 Overview: Per [facility] Protocol Chronic ankle pain 05/02/2023 [...] as of this encounter (statuses as of 07/30/2024) Resolved Problems Problem Noted Date Diagnosed Date [...] as of this encounter (statuses as of 07/30/2024) Immunizations Name Administration Dates Next Due COVID-19 mRNA, LNP-s, No Pre serve, 2-Dose Series (Pfizer) 06/07/2021,12/26/2020 H1N1 2009 Influenza, IM 09/01/2009 Hepatitis B, 20+ yrs 05/31/2014,12/10/2013,11/08 Pneumococcal Conjugate Vacci ne, 20-valent (Mbzbeop26) 03/07/2022 Pneumococcal Polysaccharide PPV23 (Pneumovax) 04/29/2008 Seasonal Influenza Vac., MDV , IM, 0.5 mL (Fluzone) 06/14/2014,08/12/2013,09/04/2012,07/30,08/07/2010,08/03/2009,08/04/2008 Seasonal Influenza, PF, 6 M & above, IM , (FluLaval or Fluzone) 06/21/2022,06/29/2021,07/24/2020,06/25,07/11/2017 Seasonal Influenza, Quadriva lent, No Preserve, IM 07/19/2016,07/20/2015 Seasonal Influenza, Quadriva lent, No Preserve, Mdck 07/10/2018 TD, Preservative Free 05/07/2018 TDAP, Age 7 and older, IM (Adacel) 03/28/2008 Zoster Vaccine Recombinant (Shingrix) 06/25/2019 ,12/04/2018 documented as of this encounter Social History Tobacco Use Types Packs/Day Years Used Date Smoking Tobacco: Never Smokeless Tobacco: Never Alcohol Use Standard Drinks/Week Comments Yes 0 (1 standard drink = 0.6 oz pure alcohol) communion wine at baptism-weekly PHQ-2 Answer Date Recorded PHQ Adult Total [...] No 12/04/2023 Does the household have a presbyterian española hospitallar source of income? (Household - for ages [...] as of this encounter Progress Notes * Sharer, Genna Goff PA-C - 07/27/2024 3:39 PM EDT Ten Corbin is a 59 year old male who presents for consultation to [facility] for left hand numbness. Consult requested by Self . Ten Corbin is here unaccompanied History: Patient is a 59 year old right handed male here today with left hand numbness for approximately 1 year. Patient was previously evaluated on 07/09/2024 by Louie Villar PA-C. Night splints were recommended and a EMG was ordered. EMG is scheduled for later this week. He was not currently wearing night splints. Patient presents today with continued symptoms. He denies any new injuries or worsening symptoms. States he came in today because he of the day off work and would like further evaluation. He complains of left hand discomfort and numbness. Symptoms involve the hand and all fingers. Patient states he struggles to hold things and occasionally drops items. He denies any neck pain. 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 His last hemoglobin A1c was 12.5 on 10/2023. Review of systems: All others negative except those noted above in HPI. Past Medical History: Diagnosis Date Cerebrovascular event, ill-defined, within last 8 weeks 01/19/08 residual left sided weakness DM type 2, goal A1c below 7 Diabetes Type II, Controlled HTN, goal below 140/90 Hypertension Benign Hypothyroidism 04/29/2014 Obesity, BMI not known Obesity Family History Problem Relation Name Age of Onset Diabetes Mother Eye Problems Mother Eye Problems Father Blood Disorder Father pernious anemia Other (keratoderma) Father No Past Hx Sister Asthma Brother Lung Disorder Brother sleep apnea Social History Socioeconomic History Marital status: Spouse name: Not on file Number of children: Not on file Years of education: Not on file Highest education level: Associate degree: academic program Occupational History 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 [employer] Tobacco Use Smoking status: Never Smokeless tobacco: Never Vaping Use Vaping status: Never Used Substance and Sexual Activity Alcohol use: Yes Comment: communion wine at baptism-weekly Drug use: No Sexual activity: Yes Partners: Female Other Topics Concern Service No Blood Transfusions No Caffeine Concern No Occupational Exposure No Hobby Hazards No Sleep Concern No Stress Concern No Weight Concern Yes Special Diet No Back Care No Exercise No Bike Helmet Not Asked Seat Belt Yes Self-Exams Not Asked 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 (Adult - for ages 18 years and over): No Does your family have trouble paying for medicine? (Household - for ages 0-17 years): Not on file Food Insecurity: No Food Insecurity (12/04/2023) Food Insecurity Do you need food for this week? (Adult - for ages 18 years and over): No Are you able to get enough food for your family? (Household - for ages 0-17 years): Not on file Does your family need food this week? (Household - for ages 0-17 years): Not on file Do you always have enough food for your family? (Household - for ages 0-17 years): Not on file Recent Concern: Food Insecurity - Food Insecurity Present (12/04/2023) Hunger Vital Sign Worried About Running Out of Food in the Last Year: Never true Ran Out of Food in the Last Year: Sometimes true Transportation Needs: No Transportation Needs (12/04/2023) Transportation Needs Do you have trouble getting a ride to medical visits or work? (Adult - for ages 18 years and over):Never True Does your family have a hard time getting a ride to doctors visits? (Household - for ages 0-17 years): Not on file Has lack of transportation kept you from medical appointments, meetings, work, or from getting things needed for daily living? Check all that apply. (Adult - for ages 18 years and over): Not on file Do you (or your family) have trouble finding or paying for a ride (transportation)? (Household - for ages 0-17 years): Not on file Social Connections: Socially Isolated (12/04/2023) Social Connections How often do you feel lonely or isolated from those around you? (Adult - for ages 18 years and over): Always Housing Stability: High Risk (12/04/2023) Housing Stability Do you currently live in a residential or have no steady place to sleep at night? (Adult - for ages 18 years and over): Yes Do you think you are at risk of becoming homeless? (Adult - for ages 18 years and over): No Does your family worry about paying for your home or becoming homeless? (Household - for ages 0-17 years): Not on file Are you homeless or worried that you might be in the future? (Adult - for ages 18 years and over): Not on file Are you (or your family) homeless or worried that you might be in the future? (Household - for ages0-17 years): Not on file Past Surgical History: Procedure Laterality Date COLONOSCOPY, DIAGNOSTIC (RECTUM) 07/25/2017 poor prep, repeat 1 yr/[facility] REVISE HORIZONTAL EYE MUSCLE 1969 [facility] TOOTH ROOT REMOVAL dentures Physical Exam There were no vitals filed for this visit. Estimated body mass index is 43.27 kg/m as calculated from the following: Height as of 07/02/24: 1.651 m (5' 5"). Weight as of 07/02/24: 117.9 kg (260 lb). General: generally well-nourished and in no acute distress HEENT: normocephalic, atraumatic, sclera anicteric. Psych: mood and affect normal , cooperative Card: Peripheral pulses: normal in affected extremity (s) Resp: equal chest rise, non-tachypneic, non-labored breathing Skin: no rash, normal Neuro: Coordination: normal; Sensation: Intact to light touch MSK: Hand Exam, Bilateral Inspection: No apparent abnormality appreciated bilateral. No thenar atrophy. Palpation: No tenderness to palpation.. Range of Motion: Range of motion of the wrist and fingers are symmetric bilaterally. 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 Those x-rays show no acute fracture. No degenerative changes. X-rays of the cervical spine were obtained today and reviewed with patient. Those x-rays show degenerative changes in the lower cervical spine with marginal osteophytes and and disc space narrowing Assessment and Plan: Numbness and tingling in left hand (Primary) - XR C SPINE 2-3 VIEWS Recommend patient obtain EMG as previously scheduled. Discussed nighttime splinting and optimizing diabetes management. Genna Villatoro PA-C Orthopaedics [facility] [address] [facility] [place] [address] documented in this encounter Nursing Notes * Wanda Bowman LPN - 07/27/2024 3:23 PM EDT NEW Pt Pt c/o L arm numbness Pt noticed numbness x 1 month ago Pt had a stroke in 2007 which affected his Left side of his body Pt denies pain in his L arm Pt is unaccompanied today Xray of L arm today Louann Kingston LPN documented in this encounter Plan of Treatment Upcoming Encounters Date Type Department Care Team (Late st Contact Info) Description 08/19/2024 9:40 AM EST Office Visit Family Practice [facility] [address] [facility] [place] [address] Jennifer Jimenez, DO [address] [place] [id number] 09/30/2024 10:30 AM EST Office Visit Orthopaedics [facility] [address] [place] [id number] Ten Sadler, DO [address] [facility] [place] [address] 03/25/2025 2:30 PM EDT Office Visit Dermatology [facility] [address] [facility] [place] [id number] Don Ortiz MD [address] [place] [address] Health Maintenance Due Date Last Done Comments Hepatitis C Screening 1985 Cologuard 2012 Fecal Occult Blood Test 2012 Sigmoidoscopy 2012 Albumin/Creatinine Ratio 06/02/2021 020, 06/19/2018, 07/11/2017, Additional history exists Diabetic Foot Exam 04/24/2024 04/24/2023, 0 03/07/2022, 08/24/2020, Additional history exists HbA1c 05/06/2024 11/06/2023, 02/0 06/2023, 10/18/2022, Additional history exists COVID-19 Vaccine ( season) 2024 06/07/2021, 12/26/2020 Influenza Vaccine (FLU shot) (#1) 2024 06/21/2022, 06/29/2021, 07/24/2020, Additional history exists [...] (6 to 64 Years) Completed 03/07/2022, 04/29/2008 HPV (Gardasil) Vaccine Aged Out No lo nger eligible based on patient's age to complete this topic MENINGOCOCCAL (MENACTRA/MENVEO) Aged Out No longer eligible based on patient's age to complete this topic documented as of this encounter Medical Devices Not on filedocumented as of this encounter Procedures Procedure Name Priority Date/Time Associated Diagnosis Comments XR C SPINE 2-3 VIEWS Routine 07/27/2024 3:46 PM EDT Numbness and tingling in left hand documented in this encounter Results * XR C SPINE 2-3 VIEWS (07/27/2024 3:46 PM EDT) Anatomical Region Laterality Modality Vertebra, Spine, Cspine Computed Radiography 07/28/2024 4:26 PM EDT Impressions 07/28/2024 4:24 PM EDT IMPRESSION Straightening of cervical spine with C5-C6 degenerative disc changes. Narrative 07/28/2024 4:24 PM EDT EXAM XR C SPINE 2-3 VIEWS-07/27/2024 3:46 pm HISTORY numbness COMPARISON None. TECHNIQUE Two views of cervical spine. FINDINGS Cervical spine was imaged from skull base to C7 on lateral view. Straightening of cervical spine. C5-C6 degenerative disc changes with disc space narrowing and marginal osteophytes. Vertebral body height is maintained. Prevertebral soft tissue is within normal limits. Atherosclerotic calcifications of the right carotid artery. Procedure Note Guevara Chatman MD - 07/28/2024 EXAM XR C SPINE 2-3 VIEWS-07/27/2024 3:46 pm HISTORY numbness COMPARISON None. TECHNIQUE Two views of cervical spine. FINDINGS Cervical spine was imaged from skull base to C7 on lateral view.Straightening of cervical spine. C5-C6 degenerative disc changes withdisc space narrowing and marginal osteophytes. Vertebral body height ismaintained. Prevertebral soft tissue is within normal limits.Atherosclerotic calcifications of the right carotid artery. IMPRESSION IMPRESSION Straightening of cervical spine with C5-C6 degenerative disc changes. Genna Goff Sharer PA-C [facility] documented in this encounter Visit Diagnoses Diagnosis Numbness and tingling in left hand- Primary Disturbance of skin sensation documented in this encounter Care Teams Director Paid Media Relationship Specialty Start Date End Date Jennifer Jimenez DO [address] [place] [address] PCP - General Family Medicine 09/17/18 documented as of this encounter
--- OUTSIDE RECORDS SUMMARY | 2024-08-29 17:23 | External Medical Summary | Summary of Care ---
Author Name Unknown Organization [facility] Address [address] [facility] [place] [address] Phone [phone] Care Team Providers Care Tablet Machine Operator Name Role Phone Jennifer iJmenez DO Primary Care Provider Reason for Visit * Reason Comments Follow Up Encounter Details Date Type Department Care Team (Latest Contact Info) Description 08/19/2024 11:40 AM EST Office Visit [facility] [address] [place] [address] Jennifer Jimenez DO [address] [facility] [place] [address] Moderate binge-eating disorder*; Diabetic polyneuropathy associated with diabetes mellitus due to underlying condition ([facility]); DYSLIPIDEMIA, GOAL LDL BELOW 100; HTN, goal below 140/90; Major depressive disorder, recurrent episode, moderate ([facility]); Severe obstructive sleep apnea; Type 2 diabetes mellitus with hemoglobin A1c goal of less than 8.0% ([facility]); Ulnar neuropathy at elbow, left; Radial neuropathy, left Allergies Active Allergy Reactions Criticality Noted Date Comments Doxycycline Hives 08/01/2012 Macrolides And Ketolides 07/15/2000 unknown Morphine And Codeine 06/11/2008 GI upset Penicillins 08/29/1999 1969 anaphylaxis documented as of this encounter (statuses as of 08/19/2024) Medications Medication Sig Dispensed Refills Start Date [...] breakfast 60 Tablet 11 06/21/2022 Active OneTouch Yady Lancets 33GIndications:Type 2 diabetes mellitus with hemoglobin A1c goal of less than 8.0% ([facility]) Use as directed 4 times per day 400 Each 3 10/18/2022 Active Nystatin 570513 UNIT/GM External Powder (Nystop)Indications: Tinea cruris Apply [...] long-term current use of insulin ([facility]),HTN, goal below 140/90 TAKE ONE TABLET BY MOUTH EVERY MORNING 90 Tablet 3 11/07/2023 Active Mounjaro 2.5 MG/0.5ML Subcutaneous Solution Pen-injector (Tirzepatide)Indicat ions:Type 2 diabetes mellitus with hemoglobin A1c goal of less than 8.0% ([facility]),Type 2 diabetes mellitus with hyperglycemia, with long-term current use of insulin ([facility]) Inject 2.5 mg under the skin once a week. 2 mL 11 12/04/2023 5 Active Clobetasol Propionate 0.05 % External Cream (Temovate)Indication [...] long-term current use of insulin ([facility]) Inject 40 Units under the skin at bedtime. TITRATING DOSE EVERY 2 WEEKS UNTIL BG LESS THAN 180 (Levemir not being made anymore) (up until max dose of 50 units) 45 mL 05/25/2024 Active Insulin Pen Needle 32G X 8 MMIndications:Type 2 diabetes mellitus with hemoglobin A1c goal of less than 8.0% ([facility]) Use as directed 2 times a day. To inject insulin. 200 Each 3 07/10/2024 Active Ozempic (0.25 or 0.5 MG/DOSE) 2 MG/1.5ML Solution Pen-injector (Semaglutide(0.25 or 0.5MG/DOS))Indicatio ns:Type 2 diabetes mellitus with diabetic mononeuropathy, with long-term current use of insulin ([facility]) Inject 0.25 mg under the skin once [...] other meds) 90 Tablet 3 08/10/2024 Active Clotrimazole 1 % External Cream (Lotrimin) APPLY ONE APPLICATION EXTERNAL THREE TIMES A DAY 07/19/2024 Active documented as of this encounter (statuses as of 08/19/2024) Active Problems Problem Noted Date Diagnosed Date [...] 01/24/2009 Overview: Modified per CVA protocol #8 Donita alberts 07/26/2000 documented as of this encounter (statuses as of 08/19/2024) Resolved Problems Problem Noted Date Diagnosed Date [...] 01/26/2009 Overview: Modified per CVA protocol #8 ADVANCE DIRECTIVE INFORMATION 02/12/2008 08/16/2024 Overview: No, Advance Directive brochure mailed to [...] as of this encounter (statuses as of 08/19/2024) Immunizations Name Administration Dates Next Due COVID-19 mRNA, LNP-s, No Pre serve, 2-Dose Series (Pfizer) 06/07/2021,12/26/2020 H1N1 2009 Influenza, IM 09/01/2009 Hepatitis B, 20+ yrs 05/31/2014,12/10/2013,11/08 Pneumococcal Conjugate Vacci ne, 20-valent ([id number]) 03/07/2022 Pneumococcal Polysaccharide PPV23 (Pneumovax) 04/29/2008 Seasonal [...] 0.6 oz pure alcohol) communion wine at [facility]-weekly PHQ-2 Answer Date Recorded PHQ Adult [...] encounter Patient Instructions * Patient Instructions* Jennifer Jimenez, - 08/19/2024 12:21 PM EST MY back fax number is [phone]. Have [facility] paperwork addressed to me [phone] HR Crisis hotline. Crisis/Emergency Services [facility] provides crisis, mental health and/or drug and alcohol hotline services for [facility]. Individuals, family members, providers, community agencies and/or law enforcement are all welcome to call the line to discuss the crisis and be provided support and resources. The crisis line is . A Walk In Center is now available at [address] [place] [address] thatis open 24 hours a day, 7 days a week. The Walk In Center is available similar to crisis line and provides necessary supports and resources in their safe and confidential location. [facility] also provides mobile crisis intervention services for individuals who may be having a mental health crisis. This support is available to anyone in [facility]. Please contact the crisisline at to request [...] medications to get to target A1c of less than 8 for surgery. Patient expresses understanding, however lacks motivation to change. He did muchbetter when he was taking an SSRI, but has no motivation to start that. He has had thoughts of hurting himself, but states that he would not do so he states that although he is very depressed he would not hurt himself. He says that he does better when he lives with somebody, and we discussed tryingto see if his brother would come live [...] on FMLA for left arm weakness, left leg w eakness uses a cane, and some cognitive dysfunction which appears better than last week. He is out currently on FMLA trying to get diabetes controlled, so that he can have his left arm fix currently it is nonfunctional. He has had a stroke previously and has some residual left-sided weakness to begin with. He says when he stands to cook his left hip will give out on him. He works for the [place] [facility] [employer] [facility] but does not feel safe doing so, he is wondering if she he should be medically retired. Discussed that although I can provide FMLA at this time, I do not do permanent disability he would have to go through the social security disability office to be evaluated by their physician. We have not received FMLA paperwork from yet, he again tried to call HR during our visit, I spoke to them last time and to get the paperwork going, patient is not sure what is going on, he has not signed anything himself, or given any details as far as absence. I have provided are back fax number for the patient so that he can share with the account development representative when she calls him back. He [...] visit summary paper. Strongly encouraged patient to miner pick medications today which he did not do [...] goal of less than 8.0% ([facility]) Severe obstructive sleep apnea Acquired hypothyroidism HTN, goal below 140/90 Pruritus Keratoderma Alopecia areata Vitiligo Primary open angle glaucoma of both eyes, moderate stage Major depressive disorder, recurrent episode, moderate ([facility]) Binge eating disorder Erectile dysfunction Rotator cuff syndrome of right shoulder Psoriasis History of sepsis History of diabetic ketoacidosis Iron deficiency anemia due to chronic blood loss Elevated alkaline phosphatase measurement Diabetic polyneuropathy associated with diabetes mellitus due to underlying condition ([facility]) Chronic ankle pain Chronic pain of left [...] up to two weeks. 60 g 1 Trailerpop Ultra In Vitro Strip (Glucose Blood) E11.9, use once daily 100 Strip 3 Mounjaro 2.5 MG/0.5ML Subcutaneous Solution Pen-injector (Tirzepatide) Inject 2.5 mg under the skinonce a week. 2 mL 11 Lisinopril 20 MG Oral Tablet (Prinivil) TAKE ONE TABLET BY MOUTH EVERY MORNING 90 Tablet 3 Nystatin 611410 UNIT/GM External Powder (Nystop) Apply topically to affected area 3 times a day. Apply to scrotum 60 g 2 Triamcinolone Acetonide 0.1 % External Cream (Aristocort) Apply topically to affected area 2 times a day. To affected area. vaseline after 453.6 g 5 Trailerpop Delica Lancets 33G Use as directed 4 [...] to use his left arm at the [place] [facility] due to radial and ulnar neuropathy. Also [...] medications and checkshis sugars. We are awaiting [place] paperwork from human resources. I gave the patient our back fax number to share with HR. We were unable to get in contact with the outside energy sales representatives handling his case onthe phone [...] 09/30/2024 10:30 AM EST Office Visit Orthopaedics [facility] [address] [place] [address] Ten Sadler DO [address] [place] [place] [address] 03/25/2025 2:30 PM EDT Office [facility] [address] [facility] [address] Don Ortiz MD [address] [facility] [place], [place] [address] Health Maintenance Due Date Last Done Comments [...] left documented in this encounter Care Teams Tablet Machine Operator Relationship Specialty Start Date End Date Jennifer Jimenez DO [address] [place] [address] PCP - General Family Medicine 09/17/18 documented as of this encounter
--- OUTSIDE RECORDS SUMMARY | 2024-08-29 17:23 | External Medical Summary | Summary of Care ---
Author Name Unknown Organization [facility] Address [address] [facility] [place] [address] Phone [phone] Care Team Providers Care Kitchen Bath Designer Name Role Phone Jennifer Jimenez DO Primary Care Provider Reason for Visit * Reason Comments eRx-Medication Refill Encounter Details Date Type Department Care Team (Late st Contact Info) Description 08/17/2024 Refill Family Practice [facility] [address] [place] [address] Jennifer Jimenez DO [address] [facility] [place] [address] Type 2 diabetes mellitus with hyperglycemia, with long-term current use of insulin ([facility]) Allergies Active Allergy Reactions Criticality Noted Date Comments Doxycycline Hives 08/01/2012 Macrolides And Ketolides 07/15/2000 unknown Morphine And Codeine 06/11/2008 GI upset Penicillins 08/29/1999 1969 anaphylaxis documented as of this encounter (statuses as of 08/18/2024) Medications Medication Sig Dispensed Refills Start Date [...] hemoglobin A1c goal of less than 8.0% ([facility]) Use as directed 4 times per day 400 Each 3 10/18/2022 Active Nystatin 756479 UNIT/GM External Powder (Nystop)Indications: Tinea cruris Apply [...] long-term current use of insulin ([facility]),HTN, goal below 140/90 TAKE ONE TABLET BY MOUTH EVERY MORNING 90 Tablet 3 11/07/2023 Active Mounjaro 2.5 MG/0.5ML Subcutaneous Solution Pen-injector (Tirzepatide)Indicat ions:Type 2 diabetes mellitus with hemoglobin A1c goal of less than 8.0% ([facility]),Type 2 diabetes mellitus with hyperglycemia, with long-term current use of insulin ([facility]) Inject 2.5 mg under the skin [...] long-term current use of insulin ([facility]) Inject 40 Units under the skin at bedtime. TITRATING DOSE EVERY 2 WEEKS UNTIL BG LESS THAN 180 (Levemir not being made anymore) (up until max dose of 50 units) 45 mL 05/25/2024 Active Insulin Pen Needle 32G X 8 MMIndications:Type 2 diabetes mellitus with hemoglobin A1c goal of less than 8.0% ([facility]) Use as directed 2 times a day. To inject insulin. 200 Each 3 07/10/2024 Active Ozempic (0.25 or 0.5 MG/DOSE) 2 MG/1.5ML Solution Pen-injector (Semaglutide(0.25 or 0.5MG/DOS))Indicatio ns:Type 2 diabetes mellitus with diabetic mononeuropathy, with long-term current use of insulin ([facility]) Inject 0.25 mg under the skin once [...] as of this encounter (statuses as of 08/18/2024) Active Problems Problem Noted Date Diagnosed Date [...] 01/24/2009 Overview: Modified per CVA protocol #8 Tinea cruris 07/26/2000 documented as of this encounter (statuses as of 08/18/2024) Resolved Problems Problem Noted Date Diagnosed Date [...] as of this encounter (statuses as of 08/18/2024) Immunizations Name Administration Dates Next Due COVID-19 mRNA, LNP-s, No Pre serve, 2-Dose Series (AudiencePoint) 06/07/2021,12/26/2020 H1N1 2009 Influenza, IM 09/01/2009 Hepatitis B, 20+ yrs 05/31/2014,12/10/2013,11/08 Pneumococcal Conjugate Vacci ne, 20-valent ([id number]) 03/07/2022 Pneumococcal Polysaccharide PPV23 (Pneumovax) 04/29/2008 Seasonal [...] 0.6 oz pure alcohol) communion wine at [facility] PHQ-2 Answer Date Recorded PHQ Adult Total [...] Notes * Telephone Encounter - Audelia Gould RPh - 08/18/2024 2:38 PM ESTRefused Prescriptions: Disp Refills NovoLOG FlexPen 100 UNIT/ML Subcutaneous S*15 mL 5 Sig: INJECT 15 UNITS UNDER THE SKIN IN THE MORNING AND 15 UNITS AT NOON AND 15 UNITS IN THE EVENING. INJECT WITHMEALSRefused By: Topher GOULDon for Refusal: Course of treatment complete documented in this encounter Plan of Treatment Upcoming Encounters Date Type Department Care Team (Late st Contact Info) Description 08/19/2024 11:40 AM EST Office Visit Family Practice [facility] [address] [place] [address] Jennifer Jimenez DO [address] [facility] [place] [address] 09/30/2024 10:30 AM EST Office Visit Orthopaedics [facility] [address] [place] [address] Ten Sadler, [address] [place] [address] 03/25/2025 2:30 PM EDT Office Visit Dermatology [facility] [address] [place] [address] Don Ortiz MD [address] [facility] [place] [address] Health Maintenance Due Date Last Done Comments Hepatitis C Screening 1985 Cologuard 2012 Fecal Occult Blood Test 2012 Sigmoidoscopy 2012 Albumin/Creatinine Ratio 06/02/2021 020, 06/19/2018, 07/11/2017, Additional history exists Diabetic Foot Exam 04/24/2024 04/24/2023, 0 03/07/2022, 08/24/2020, Additional history exists COVID-19 Vaccine ( season) 2024 06/07/2021, 12/26/2020 HbA1c 02/08/2025 08/10/2024, 10/14, 11/21/2022, Additional history [...] (HCC) documented in this encounter Care Teams Kitchen Bath Designer Relationship Specialty Start Date End Date Jennifer Jimenez DO [address] [place] [address] PCP - General Family Medicine 09/17/18 documented as of this encounter
--- OUTSIDE RECORDS SUMMARY | 2024-08-29 17:23 | External Medical Summary | Summary of Care ---
Author Name Unknown Organization [facility] Address [address] [facility] [place] [address] Phone [phone] Care Team Providers Care Sex Therapist Name Role Phone Jennifer Jimenez DO Primary Care Provider Reason for Visit * Reason Comments EMG Encounter Details Date Type Department Care Team (Late st Contact Info) Description 07/30/2024 8:40 AM EDT NeuroDiagnostic Study Neurophys[facility] [address] [facility] [place] [address] Danis Espinoza MD [address] [facility] [place] [address] Arrived Allergies Active Allergy Reactions Criticality Noted Date [...] goal of less than 8.0% ([facility]) Use as directed 4 times per day 400 Each 3 10/18/2022 Active Nystatin 515783 UNIT/GM External Powder (Nystop)Indications:T inea cruris Apply [...] long-term current use of insulin ([facility]),HTN, goal below 140/90 TAKE ONE TABLET BY MOUTH EVERY MORNING 90 Tablet 3 11/07/2023 Active Mounjaro 2.5 MG/0.5ML Subcutaneous Solution Pen-injector (Tirzepatide)Indicati ons:Type 2 diabetes mellitus with hemoglobin A1c goal of less than 8.0% ([facility]),Type 2 diabetes mellitus with hyperglycemia, with long-term current use of insulin ([facility]) Inject 2.5 mg under the [...] Blood) E11.9, use once daily 100 Strip 12/23/2023 Active Aspirin Low Dose 81 MG Oral Tablet Delayed Release (aspirin enteric coated)Indications:Ce rebrovascular disease, arteriosclerotic, post-stroke TAKE TWO TABLETS BY MOUTH EVERY MORNING 180 Tablet 01/06/2024 Active Metoprolol Succinate ER 50 MG [...] long-term current use of insulin ([facility]) Inject 40 Units under the skin at bedtime. TITRATING DOSE EVERY 2 WEEKS UNTIL BG LESS THAN 180 (Levemir not being made anymore) (up until max dose of 50 units) 45 mL 05/25/2024 Active Insulin Pen Needle 32G X 8 MMIndications:Type 2 diabetes mellitus with hemoglobin A1c goal of less than 8.0% ([facility]) Use as directed 2 times [...] yrs 05/31/2014,12/10/2013,11/08 Pneumococcal Conjugate Vacci ne, 20-valent ([id number]) 03/07/2022 Pneumococcal Polysaccharide PPV23 (Pneumovax) 04/29/2008 Seasonal [...] 0.6 oz pure alcohol) [facility] PHQ-2 Answer Date Recorded PHQ Adult Total [...] as of this encounter Progress Notes * Danis Espinoza MD - 07/30/2024 11:49 AM EDT The current study is done to evaluate increasing numbness and weakness in the left hand occurring in a known longstanding diabetic man with a prior CVA in 2007 involving the left arm and leg and witha history to suggest a sensory polyneuropathy involving lower extremities Nerve conduction studies done on left median ulnar nerves with F-waves reveal evidence for mild prolongation of the left median distal motor latencies and mild slowing of left ulnar motor velocity between the elbow and wrist with additional more significant slowing across the elbow and with bilateral prolongation of the F-waves. 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 with a superimposed mild left median mononeuropathies at the level of the wrist and a more prominent demyelinating left ulnar mononeuropathies at the level of the elbow Orthopedic evaluation may be of value but expectations for decompression of nerves are going to have to be limited by the presence of an underlying polyneuropathy documented in this encounter Plan of Treatment Upcoming Encounters Date Type Department Care Team (Late st Contact Info) Description 07/30/2024 3:20 PM EDT Office Visit Pharmacy, [facility] [address] [place] [address] Pharmacist2, [facility] [address] [place] [address] 08/19/2024 9:40 AM EST Office Visit Family Practice [facility] [place] [address] [place] [address] Jennifer Jimenez, [address] [place] [address] 09/30/2024 10:30 AM EST Office Visit Orthopaedics [facility] [address] [facility] [place] [address] Ten Sadler, DO [address] [place] [address] 03/25/2025 2:30 PM EDT Office Visit Dermatology [facility] [address] [facility] [place] [address] Don Ortiz MD [address] [facility] [place] [address] Health Maintenance Due Date Last Done Comments [...] as of this encounter Visit Diagnoses Diagnosis Numbness and tingling in left hand- Primary Disturbance of skin sensation documented in this encounter Care Teams Sex Therapist Relationship Specialty Start Date End Date Jennifer Jimenez DO [address] [place] [address] PCP - General Family Medicine 09/17/18 documented as of this encounter
--- OUTSIDE RECORDS SUMMARY | 2024-08-29 17:23 | External Medical Summary ---
Author Name Unknown Address Unknown Organization K09:[facility] [place] [address] Laboratory Report Ordering Provider Test Date Status ELVIE CAMPA 08/10/2024 13:15:26 Final Observation Date Value Abnormality Reference (Units ) Status WBC, Total 08/10/2024 13:15:26 10.15 4.00-10.8 0 (K/uL) Final RBC 08/10/2024 13:15:26 5.75 4.50-5.25 (M/uL) Final Hemoglobin 08/10/2024 13:15:26 15.5 14.0-16.8 (g/dL) Final HCT 08/10/2024 13:15:26 45.5 40.0-48.4 (%) Final MCV 08/10/2024 13:15:26 79.1 82.0-99.5 (fL) Final MCH 08/10/2024 13:15:26 27.0 27.0-34.0 (pg) Final MCHC 08/10/2024 13:15:26 34.1 32.0-36.0 (g/dL) Final RDW 08/10/2024 13:15:26 14.7 11.5-15.5 (%) Final Platelets 08/10/2024 13:15:26 239 140-400 (K /uL) Final MPV 08/10/2024 13:15:26 9.3 6.6-11.1 ( fL) Final Performing Location [facility] [place] [address]
[2024-08-29 18:43] LABS: Albumin Globulin Ratio 1.4 (0.9-2); Albumin Level 4.2 gm/dl (3.4-5.0); BUN Creatinine Ratio 7.9 (10-20); Bilirubin,Total 0.9 mg/dl (0.2-1.0); Calcium 9.7 mg/dl (8.6-10.3); Creatinine Clr Calc Pharmacy 65.1 ml/min; Globulin 3.1 gm/dl (2.5-4.0); Magnesium 1.8 mg/dl (1.7-2.4); Potassium 4.6 mmol/L (3.5-5.1); Total Protein 7.3 gm/dl (6.0-8.3)
[2024-08-29 18:49] LABS: Basophils % (auto) 1.5 %; Eosinophils # (auto) 0.25 K/uL (0.00-0.50); Eosinophils % (auto) 3.8 %; Hematocrit (blood only) 43.2 % (42.0-52.0); Hemoglobin 14.2 g/dl (14.0-18.0); Immature Granulocytes # (auto) 0.01 K/uL (0.01-0.20); Immature Granulocytes % (auto) 0.2 %; Lymphocytes # (auto) 1.41 K/uL (1.20-3.40); Lymphocytes % (auto) 21.4 %; Mean Corpuscular Hemoglobin 26.5 pg (25.0-34.0); Mean Corpuscular Hgb Conc 32.9 g/dL (32.0-36.0); Mean Corpuscular Volume 80.7 fL (80.0-100.0); Mean Platelet Volume 10.2 fL (9.4-12.4); Monocytes # (auto) 0.37 K/uL (0.11-0.59); Monocytes % (auto) 5.6 %; Neutrophils # (auto) 4.44 K/uL (1.40-6.50); Neutrophils % (auto) 67.5 %; Platelet Count 273 K/uL (130-400); RDW Coefficient of Variation 14.6 % (11.5-14.5); RDW Standard Deviation 42.5 fL (36.4-46.3); Red Blood Count 5.35 M/uL (4.70-6.10); White Blood Count 6.58 K/ul (4.8-10.8)
--- NOTE | 2024-08-29 19:21 | Emergency Department Note ---
Impression & Plan COVID-19, CHF (congestive heart failure), Dyspnea on minimal exertion ED Provider Note NAME: JAYESH VELÁSQUEZ AGE: 59 SEX: M : 1965 ARRIVES VIA: Walk-In INFORMANT: Patient ED PROVIDER(S): Jelani López MD CHIEF COMPLAINT: Shortness of breath PLAN: Disposition: Admit MEDICAL DECISION MAKING: The patient is a pleasant 59-year-old gentleman with a past medical history of CAD with multi vessel severe coronary artery disease, ischemic cardiomyopathy, hypertension, type 2 diabetes, hyperlipidemia, hypothyroidism, GERD, mood disorder, CHARLEEN, medical noncompliance who presents to the emergency department via walk-in for evaluation of ongoing shortness of breath with minimal exertion over the past several weeks but feels symptoms have become more severe over the past several days. He reports mild congestion denies productive cough or chest pain. He denies nausea, vomiting or diarrhea. Patient is a poor historian. On evaluation the patient is no distress, afebrile blood pressure 140/90s and vital signs are otherwise stable. O2 saturation mostly 90% and greater on room air though did have brief episode in the 80s which resolved. He appears hypervolemic. EKG without overt acute ischemia. CXR demonstrates venous congestion with patchy bilateral airspace opacities per my preliminary independent interpretation. Suspect component of CHF. WBC, H/H and platelets within normal limits. Chemistry without metabolic acidosis. Creatinine 1.5 marginally increased from prior range values. LFTs unremarkable. Initial high-sensitivity troponin 26 with delta 2-hour high- sensitivity troponin again stable at 26. BNP is 438 consistent with the patient's hypervolemia on exam. Lipase is not elevated. Procalcitonin is not elevated. TSH is elevated at 30 with free T4 0.46. UA without evidence of infection. Respiratory BioFire was positive for COVID-19. Findings reviewed with the patient and given his worsening dyspnea with minimal exertion and he agrees for plan for admission for further management. Treatment initiated with IV Lasix. Case was discussed with Dr. Jasmine, [facility] who will evaluate the patient for admission. Further management per admitting team. Triage Nursing notes reviewed and agree them. Prior/external medical records reviewed Vital Signs: reviewed Differential diagnosis: Reactive airway disease, pneumonia, pneumothorax, COPD, CHF, infections, cardiac ischemia, pulmonary embolism, musculoskeletal, gastrointestinal, as well as other pathologies. ER treatment provided: See below. Diagnostics interpreted by me: ECG: Sinus rhythm with prescribed block, frequent PVCs, 84 bpm, nonspecific T wave abnormality, no overt ST elevation or depression, QTc 472, QRS 88. Cardiac Monitoring: An order for continuous cardiac monitoring was placed and demonstrated sinus rhythm, 84 bpm, PVCs. Laboratory studies: See below Imaging studies: See below Consultation(s): Case was discussed with Dr. Jasmine, [facility] hospitalist who will evaluate the patient for admission. HPI: The patient is a pleasant 59-year-old gentleman with a past medical history of CAD with multi vessel severe coronary artery disease, ischemic cardiomyopathy, hypertension, type 2 diabetes, hyperlipidemia, hypothyroidism, GERD, mood disorder, CHARLEEN, medical noncompliance who presents to the emergency department via walk-in for evaluation of ongoing shortness of breath with minimal exertion over the past several weeks but feels symptoms have become more severe over the past several days. He reports mild congestion denies productive cough or chest pain. He denies nausea, vomiting or diarrhea. Patient is a poor historian. ROS: See above HPI for pertinent positives & negatives. A total of 10 systems reviewed and were otherwise negative. VITALS:See Below PHYSICAL EXAMINATION: GENERAL: Awake, alert, fatigued-appearing, in no distress HENT: Normocephalic, atraumatic. Oropharynx unremarkable. EYES: Normal conjunctiva. Sclera non-icteric. NECK: Supple. No nuchal rigidity. FROM. No JVD. RESPIRATORY: Diminished at the bases and otherwise clear to auscultation. CARDIAC: Regular rate, normal rhythm. Extremities warm and well perfused. Pulses equal. ABDOMEN: Soft, non-distended. No tenderness to palpation. No rebound or guarding. MUSCULOSKELETAL: Chest examination reveals no tenderness. The back is symmetrical on inspection without obvious abnormality. There is no CVA tenderness to palpation. No joint edema. LOWER EXTREMITIES: Calves are equal size bilaterally and non-tender. Scant bilateral lower extremity edema. No discoloration. NEURO: No focal objective sensory or motor deficits noted. SKIN: No rash or jaundice noted. Jelani López MD Past Med/Surg History Problem List (Updated 08/30/24 @ 05:58 by Jelani López MD) Dyspnea on minimal exertion (Acute) CHF (congestive heart failure) (Acute) COVID-19 (Acute) Acute hypoxemic respiratory failure Non-ST elevation [place] (NSTEMI) (Acute) Phlegmonous cellulitis Hyponatremia (Acute) History of CVA (cerebrovascular accident) Morbid obesity DM2 (diabetes mellitus, type 2) Cellulitis (Acute) Depression HTN (hypertension) CHF (congestive heart failure) Morbid obesity with BMI of 50.0-59.9, adult Pancreatitis Cholangitis concurrent with and due to calculus of gallbladder Hyperlipidemia, unspecified Hypothyroidism, unspecified Obstructive sleep apnea (adult) (pediatric) Unspecified cerebral artery occlusion with cerebral infarction Medical History Hypertension Diabetes Social History Smoking Status: Never smoker Hx Alcohol Use: Yes Alcohol type: beer Hx Substance Use: No Preferred Language: Uzbek Communication Ability: Effective De Icer Kit Assembler Required: No Beliefs That Will Affect Care: None Current Living Situation: Alone Feels Safe at Home: Yes Safety Concerns: Feels Safe At This Time Gender Identity: Male Assistive Devices: Cane, Denture - Upper, Denture - Lower and Glasses Allergies Allergies Allergy/AdvReac Type Severity Reaction Status Date / Time doxycycline Allergy Intermediate HIVES Verified 06/13/22 18:39 Penicillins Allergy Intermediate RASH Verified 06/13/22 18:39 Macrolide Antibiotics Allergy Unknown UNKNOWN Verified 06/13/22 18:39 morphine AdvReac Intermediate GI UPSET Verified 06/13/22 18:39 Home Meds Home Medications Medication Instructions Recorded Confirmed acetaminophen 650 mg 650 mg PO Q8H PRN Pain 06/13/22 08/29/24 tablet,extended release famotidine 20 mg tablet 20 mg PO BID 06/13/22 08/29/24 fluoxetine 20 mg capsule 40 mg PO QAM 06/13/22 08/29/24 levothyroxine 175 mcg tablet 175 mcg PO DAILYBB 06/13/22 08/29/24 melatonin 3 mg tablet 3 mg PO HS 06/13/22 08/29/24 semaglutide 2 mg/dose (8 mg/3 mL) 0.75 mg subcut UD 06/13/22 08/29/24 subcutaneous pen injector (Ozempic) bupropion HCl 150 mg 24 hr tablet, 150 mg PO QAM 03/07/24 08/29/24 extended release insulin glargine 100 unit/mL (3 40 unit subcut UD 03/07/24 08/29/24 mL) subcutaneous pen (Lantus Solostar U-100 Insulin) metformin 500 mg tablet,extended 1,000 mg PO QAM 08/29/24 08/29/24 release 24 hr nystatin 100,000 unit/gram topical 1 applic topical TID 08/29/24 08/29/24 powder (Nyamyc) triamcinolone acetonide 0.1 % 1 applic topical BID 08/29/24 08/29/24 topical cream Previous Rx's Medication Instructions Recorded Lactobacillus acidophilus 10 100 mg PO BID #60 caps 06/14/22 billion cell capsule (NewFlora) amlodipine 5 mg tablet (Norvasc) 5 mg PO QAM #30 tabs 03/10/24 aspirin 81 mg tablet,delayed 81 mg PO QAM #30 tabs 03/10/24 release isosorbide mononitrate 30 mg 30 mg PO QAM #30 tabs 03/10/24 tablet,extended release 24 hr lisinopril 20 mg tablet 20 mg PO QAM #30 tabs 03/10/24 metoprolol succinate 50 mg 50 mg PO QAM #30 tabs 03/10/24 tablet,extended release 24 hr nitroglycerin 0.4 mg sublingual See Rx Instructions .Route 03/10/24 tablet (Nitrostat) .COMPLEX PRN chest pain #30 tabs rosuvastatin 40 mg tablet 40 mg PO DAILY #30 tabs 03/10/24 clotrimazole 1 % topical cream 1 applic topical TID #30 grams 07/18/24 Results & Data (ED) Vital Signs Vital Signs - 24 hr 08/29/24 17:21 08/29/24 18:15 08/29/24 18:23 Temperature 36.6 C Temperature Source Oral Pulse Rate 86 76 Respiratory Rate 19 Respiratory Effort / Characteristics Non-Labored Spontaneous Respiratory Depth Normal Blood Pressure 143/90 H Blood Pressure Mean 107 Pulse Oximetry 99 80 L Oxygen Delivery Method Room Air Nasal Cannula Oxygen Flow Rate 0 Sepsis Recent Fever Within 48 Hours No Sepsis New/Unexplained Change in Mental Status N/A Sepsis Action Taken by Nursing No Action Required Oxygen Flow Rate - Titration 2 Pulse Oximetry Post Tiitration 99 08/29/24 18:46 08/29/24 19:07 08/29/24 20:00 Temperature Temperature Source Pulse Rate 78 80 Respiratory Rate 20 20 Respiratory Effort / Characteristics Respiratory Depth Blood Pressure 134/95 143/98 H Blood Pressure Mean 108 103 Pulse Oximetry 96 100 95 Oxygen Delivery Method Room Air Room Air Room Air Oxygen Flow Rate Sepsis Recent Fever Within 48 Hours Sepsis New/Unexplained Change in Mental Status Sepsis Action Taken by Nursing Oxygen Flow Rate - Titration Pulse Oximetry Post Tiitration 08/29/24 21:00 08/29/24 21:30 08/29/24 21:57 Temperature Temperature Source Pulse Rate 73 73 91 H Respiratory Rate 20 18 Respiratory Effort / Characteristics Respiratory Depth Blood Pressure 126/85 145/84 H Blood Pressure Mean 98 103 Pulse Oximetry 96 99 Oxygen Delivery Method Oxygen Flow Rate Sepsis Recent Fever Within 48 Hours Sepsis New/Unexplained Change in Mental Status Sepsis Action Taken by Nursing Oxygen Flow Rate - Titration Pulse Oximetry Post Tiitration Laboratory Data Attestation: I reviewed the patient's lab results. 08/29/24 17:40 08/29/24 17:40 Lab Results 08/29/24 08/29/24 08/29/24 Range/Units 17:40 20:25 20:33 WBC 6.58 (4.8-10.8) K/ul RBC 5.35 (4.70-6.10) M/uL Hgb 14.2 (14.0-18.0) g/dl Hct 43.2 (42.0-52.0) % MCV 80.7 (80.0-100.0) fL MCH 26.5 (25.0-34.0) pg MCHC 32.9 (32.0-36.0) g/dL RDW Std Deviation 42.5 (36.4-46.3) fL RDW Coeff of Oziel 14.6 H (11.5-14.5) % Plt Count 273 (130-400) K/uL MPV 10.2 (9.4-12.4) fL Immature Gran % (Auto) 0.2 % Neut % (Auto) 67.5 % Lymph % (Auto) 21.4 % Harlan % (Auto) 5.6 % Eos % (Auto) 3.8 % Baso % (Auto) 1.5 % Neut # (Auto) 4.44 (1.40-6.50) K/uL Lymph # (Auto) 1.41 (1.20-3.40) K/uL Harlan # (Auto) 0.37 (0.11-0.59) K/uL Eos # (Auto) 0.25 (0.00-0.50) K/uL Baso # (Auto) 0.10 (0.00-0.20) K/uL Immature Gran # (Auto) 0.01 (0.01-0.20) K/uL APTT 30 (21-31) Seconds PTT Ratio 1.1 Sodium 133 L (136-145) mmol/L Potassium 4.6 (3.5-5.1) mmol/L Chloride 100 (98-107) mmol/L Carbon Dioxide 24 (21-32) mmol/L Anion Gap 9 (3-11) BUN 12 (6-23) mg/dl Creatinine 1.51 H (0.6-1.4) mg/dl Est Cr Clr Drug Dosing 65.1 ml/min eGFR 53.54 BUN/Creatinine Ratio 7.9 L (10-20) Glucose 212 H (70-99(Fasting)) mg/dl Calcium 9.7 (8.6-10.3) mg/dl Magnesium 1.8 (1.7-2.4) mg/dl Total Bilirubin 0.9 (0.2-1.0) mg/dl AST 12 L (13-39) U/L ALT 10 (7-52) U/L Alkaline Phosphatase 66 (34-104) U/L Troponin I High Sens 26.0 H 26.2 H (0-20) pg/ml B-Natriuretic Peptide 438 H (0-100) pg/ml Total Protein 7.3 (6.0-8.3) gm/dl Albumin 4.2 (3.4-5.0) gm/dl Globulin 3.1 (2.5-4.0) gm/dl Albumin/Globulin Ratio 1.4 (0.9-2) Lipase 16 (11-82) U/L Procalcitonin < 0.02 (0-0.5) ng/ml TSH 30.558 H (0.300-4.500) uIu/ml Free T4 0.46 L (0.61-1.60) ng/dl Urine Color Urine Appearance (Clear) Urine pH (4.5-7.5) Ur Specific [place] (1.000-1.030) Urine Protein (Negative) Urine Glucose (UA) (Negative) Urine Ketones (Negative) Urine Blood (Negative) Urine Nitrite (Negative) Urine Bilirubin (Negative) Urine Urobilinogen (Negative) Ur Leukocyte Esterase (Negative) Urine WBC (Auto) (0-5) /hpf Urine RBC (Auto) (0-2) /hpf U Hyaline Cast (Auto) (0-2) /lpf U Epithel Cells (Auto) (0-2) /hpf Urine Bacteria (Auto) (None Seen) Nasal Screen MRSA (PCR) Negative (Negative) 08/29/24 Range/Units 22:00 WBC (4.8-10.8) K/ul RBC (4.70-6.10) M/uL Hgb (14.0-18.0) g/dl Hct (42.0-52.0) % MCV (80.0-100.0) fL MCH (25.0-34.0) pg MCHC (32.0-36.0) g/dL RDW Std Deviation (36.4-46.3) fL RDW Coeff of Oziel (11.5-14.5) % Plt Count (130-400) K/uL MPV (9.4-12.4) fL Immature Gran % (Auto) % Neut % (Auto) % Lymph % (Auto) % Harlan % (Auto) % Eos % (Auto) % Baso % (Auto) % Neut # (Auto) (1.40-6.50) K/uL Lymph # (Auto) (1.20-3.40) K/uL Harlan # (Auto) (0.11-0.59) K/uL Eos # (Auto) (0.00-0.50) K/uL Baso # (Auto) (0.00-0.20) K/uL Immature Gran # (Auto) (0.01-0.20) K/uL APTT (21-31) Seconds PTT Ratio Sodium (136-145) mmol/L Potassium (3.5-5.1) mmol/L Chloride (98-107) mmol/L Carbon Dioxide (21-32) mmol/L Anion Gap (3-11) BUN (6-23) mg/dl Creatinine (0.6-1.4) mg/dl Est Cr Clr Drug Dosing ml/min eGFR BUN/Creatinine Ratio (10-20) Glucose (70-99(Fasting)) mg/dl Calcium (8.6-10.3) mg/dl Magnesium (1.7-2.4) mg/dl Total Bilirubin (0.2-1.0) mg/dl AST (13-39) U/L ALT (7-52) U/L Alkaline Phosphatase (34-104) U/L Troponin I High Sens (0-20) pg/ml B-Natriuretic Peptide (0-100) pg/ml Total Protein (6.0-8.3) gm/dl Albumin (3.4-5.0) gm/dl Globulin (2.5-4.0) gm/dl Albumin/Globulin Ratio (0.9-2) Lipase (11-82) U/L Procalcitonin (0-0.5) ng/ml TSH (0.300-4.500) uIu/ml Free T4 (0.61-1.60) ng/dl Urine Color Yellow Urine Appearance Clear (Clear) Urine pH 5.5 (4.5-7.5) Ur Specific [place] 1.015 (1.000-1.030) Urine Protein Trace H (Negative) Urine Glucose (UA) Negative (Negative) Urine Ketones Negative (Negative) Urine Blood Negative (Negative) Urine Nitrite Negative (Negative) Urine Bilirubin Negative (Negative) Urine Urobilinogen Negative (Negative) Ur Leukocyte Esterase Negative (Negative) Urine WBC (Auto) 0-5 (0-5) /hpf Urine RBC (Auto) 0-2 (0-2) /hpf U Hyaline Cast (Auto) 0-2 (0-2) /lpf U Epithel Cells (Auto) 0-2 (0-2) /hpf Urine Bacteria (Auto) None Seen (None Seen) Nasal Screen MRSA (PCR) (Negative) Administered Medications Guaifenesin (Guaifenesin 600 Mg Tabcr) 600 mg PO Q12 CHI Stop: 09/28/24 22:19 Last Admin: 08/30/24 01:11 Dose: 600 mg Documented By: REED Insulin Aspart (Insulin Aspart Per Unit Charge) 0 units SC ACHS CHI Stop: 09/29/24 00:37 Last Admin: 08/30/24 01:09 Dose: 3 units Documented By: REED Co-signed By: ARIELLE Melatonin (Melatonin 3 Mg Tab) 3 mg PO HS CHI Stop: 09/28/24 22:19 Last Admin: 08/30/24 01:12 Dose: 3 mg Documented By: REED Discontinued Medications Albuterol (Albut/Ipratrop 3mg/0.5mg Neb 3 Ml Vial) 3 ml NEB NOW STA; Protocol Stop: 08/29/24 22:12 Last Admin: 08/29/24 22:14 Dose: 3 ml Documented By: JASBIR Furosemide (Furosemide Inj 20 Mg/2 Ml Vial) 20 mg IV ONE ONE Stop: 08/29/24 21:26 Last Admin: 08/29/24 21:32 Dose: 20 mg Documented By: JASBIR Magnesium Sulfate/Dextrose (Magnesium Sulfate / D5w) 1 gm in 100 mls @ 50 mls/hr IV ONE STA Stop: 08/29/24 23:39 Last Infusion: 08/30/24 01:12 Dose: Infused Documented By: Admin: 08/29/24 23:00 Dose: 50 mls/hr Documented By: JASBRI Albumin Human (Albumin 25%) 12.5 gm in 50 mls @ 50 mls/hr IV ONE STA Stop: 08/29/24 22:44 Last Infusion: 08/29/24 22:51 Dose: Infused Documented By: Admin: 08/29/24 21:51 Dose: 50 mls/hr Documented By: JASBIR Albumin Human (Albumin 25%) 12.5 gm in 50 mls @ 50 mls/hr IV ONE STA Stop: 08/29/24 23:20 Last Infusion: 08/30/24 02:55 Dose: Infused Documented By: Admin: 08/30/24 01:09 Dose: 50 mls/hr Documented By: REED Insulin Glargine (Lantus Per Unit Charge) 5 units SQ NOW STA Stop: 08/30/24 01:23 Last Admin: 08/30/24 02:54 Dose: 5 units Documented By: REED Co-signed By: ARIELLE Ioversol (Optiray 320 125ml) 119 ml IV ONCE ONE Stop: 08/29/24 22:46 Last Admin: 08/29/24 22:45 Dose: 119 ml Documented By: EARLENE Imaging Data Radiologist's Impression: Chest CTA 08/29/24 22:10 Exam(s): CTA CHEST IV Amt: 119 ml optiray 320 EXAM: CT Angiography Chest With Intravenous Contrast CLINICAL HISTORY: Reason for exam: cp. TECHNIQUE: Axial computed tomographic angiography images of the chest with intravenous contrast. CTDI is 54.26 mGy and DLP is 1020.37 mGy-cm. Automated exposure control was utilized for the study. A dose lowering technique was utilized adhering to the principles of ALARA. MIP reconstructed images were created and reviewed. COMPARISON: CTA Chest dated 09/29/2021, CT abdomen pelvis dated 06/13/2022 FINDINGS: Pulmonary arteries: Unremarkable. No pulmonary embolism. Aorta: No acute findings. No thoracic aortic aneurysm. Great vessels of aortic arch: Aberrant right subclavian artery. Variant anatomy. Lungs: Mild bibasilar atelectasis or airspace disease. Few scattered foci of groundglass opacities in the right upper lobe. Pleural space: Small bilateral pleural effusions. No pneumothorax. Heart: Stable cardiomegaly. No significant pericardial effusion. No evidence of RV dysfunction. Mediastinum: Multiple small and mildly enlarged mediastinal nodes. The larger right paratracheal node up to 2.3 cm similar to the prior. A 1.4 cm right paratracheal node appears larger than the prior. Few other small mediastinal nodes are nonspecific, and larger than the prior study. Bones/joints: No acute fracture. No dislocation. Soft tissues: Unremarkable. Lymph nodes: See above. Gallbladder and bile ducts: Biliary stent partially visualized. Biliary stent was present on 06/13/2022. Similar configuration of the gallbladder with mild surrounding fat stranding. IMPRESSION: 1. No evidence of pulmonary embolism. 2. Stable cardiomegaly. 3. Small bilateral pleural effusions. 4. Mild bibasilar atelectasis or airspace disease. Few scattered foci of groundglass opacities in the right upper lobe. Nonspecific and may relate to edema, infectious/inflammatory process. 5. Multiple small and mildly enlarged mediastinal nodes. The larger right paratracheal node up to 2.3 cm similar to the prior. A 1.4 cm right paratracheal node appears larger than the prior. Few other small mediastinal nodes are nonspecific, and larger than the prior study. May represent infectious, inflammatory or neoplastic process. Correlate and consider follow-up. 6. Biliary stent partially visualized. Biliary stent was present on 06/13/2022. Similar configuration of the gallbladder with mild surrounding fat stranding. Electronically signed by: Breanna Tapia M.D. 08/30/24 01:[address] 08/29/24 22:10 Exam(s): CT HEAD Without Contrast EXAM: CT Head Without Intravenous Contrast CLINICAL HISTORY: Reason for exam: LUE weakness. TECHNIQUE: Axial computed tomography images of the head/brain without intravenous contrast. CTDI is 35.92 mGy and DLP is 624.41 mGy-cm. Automated exposure control was utilized for the study. A dose lowering technique was utilized adhering to the principles of ALARA. COMPARISON: CT Head dated 03/07/24 FINDINGS: Brain: Volume loss with prominent ventricles and sulci. Moderate periventricular and subcortical white matter hypoattenuation likely reflects chronic small vessel disease. Similar to the prior. Right basal ganglia old lacunar infarct. No hemorrhage. Ventricles: See above. Bones/joints: Unremarkable. No acute fracture. Soft tissues: Unremarkable. Sinuses: Mild paranasal sinus mucosal thickening. No fluid levels. Mastoid air cells: Unremarkable as visualized. No mastoid effusion. IMPRESSION: No acute findings in the head/brain. Electronically signed by: Breanna Tapia M.D. 08/30/24 00:23 AM Discharge Plan Visit Data Chief Complaint: Shortness of Breath/Dyspnea Stated Complaint: SOB ED Provider: Jelani López Discharge Problem: COVID-19, CHF (congestive heart failure), Dyspnea on minimal exertion Patient Disposition: Admitted As Inpatient Discharge Instructions Interventions: ED Discharge Assessment Last Done: 08/30/24 00:11 Discharge Problem: CHF (congestive heart failure) Qualifiers: Heart failure type: unspecified Heart failure chronicity: acute on chronic Q ualified Code(s): I50.9 - Heart failure, unspecified
[2024-08-29 19:29] LABS: Adenovirus PCR Not Detected (NotDetected); Bordetella parapertussis PCR Not Detected (NotDetected); Bordetella pertussis PCR Not Detected (NotDetected); Chlamydia pneumoniae PCR Not Detected (NotDetected); Coronavirus 229E PCR Not Detected (NotDetected); Coronavirus CoV-2 (COVID19)PCR DETECTED (NotDetected); Coronavirus HKU1 PCR Not Detected (NotDetected); Coronavirus NL63 PCR Not Detected (NotDetected); Coronavirus OC43PCR Not Detected (NotDetected); Human Metapneumovirus PCR Not Detected (NotDetected); Influenza A PCR Not Detected (NotDetected); Influenza B PCR Not Detected (NotDetected); Mycoplasma pneumoniae PCR Not Detected (NotDetected); Parainfluenza Virus 1 PCR Not Detected (NotDetected); Parainfluenza Virus 2 PCR Not Detected (NotDetected); Parainfluenza Virus 3 PCR Not Detected (NotDetected); Parainfluenza Virus 4 PCR Not Detected (NotDetected); Respiratory Syncytial VirusPCR Not Detected (NotDetected); Rhinovirus/Enterovirus PCR Not Detected (NotDetected)
[2024-08-29 21:15] LABS: Troponin I High Sensitivity 26.2 pg/ml (0-20)
[2024-08-29] MEDS: FUROSEMIDE INJ 20 MG/2 ML VIAL IV ONE (21:32)
[2024-08-29] MEDS: ALBUMIN 25% 12.5 GM/50 ML VIAL IV STA (21:51)
--- NOTE | 2024-08-29 21:58 | History & Physical Report ---
Date of Service August 29, 2024 Assessment & Plan (1) Acute hypoxemic respiratory failure: Plan: Transient hypoxemia Secondary to COVID-19 pneumonia chronic systolic heart failure EF (40 to 45%, TTE 2023), patient euvolemic to dry ARF secondary to illness hypertension, stable hyperlipidemia, on statin Rx CHARLEEN CPAP intolerance hx CVA DM2 insulin requiring, suboptimal control as of recent hemoglobin A1c of 10.7 last July 2024 hypothyroidism, TSH still elevated although improved from recent confinement anxiety/mood disorder, at baseline LUE weakness from chronic left ulnar/radial neuropathy, outpatient Orthopedics eval contemplated as per PCP note Medical telemetry Supportive management for COVID-19 illness for now Decadron if with recurrent hypoxemia (Hold off for now given poorly controlled DM.) Baseline UA, monitor creatinine response to IV albumin Hold lisinopril until creatinine back to baseline Increase levothyroxine dose to 200 mcg from 175 mcg daily, recheck TSH outpatient after 6 weeks Basal bolus insulin, ISS BG goal 1 10-1 40, carb count coverage PT OT eval in a.m. DVT prophylaxis. Heparin subcu Full code Text document was generated using [employer] voice recognition software. It may contain grammatical or spelling errors. Kindly contact undersigned for clarification of any documentation item in question. History of Present Illness Chief Complaint: Shortness of breath, chest pain Primary Care Provider: Jennifer Jimenez, History obtained from patient and records. Medical history significant for chronic systolic heart failure EF (40 to 45%, TTE 2023), hypertension, hyperlipidemia, CHARLEEN CPAP intolerance, CVA, DM2 insulin requiring, hypothyroidism, anxiety/mood disorder, chronic left ulnar/radial neuropathy. Last confinement February 2024 for NSTEMI. Severe multivessel CAD on cardiac catheterization. Medical management recommended by Cardiology. 1 week history of dry cough symptoms with worsening SOB. Patient with heart pounding sensation and transient left-sided chest pain today. Denies fluid retention. Denies headache. Falling a lot at home. Usual left arm weakness, unable to hold a lot of things. 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 Transient O2 sats of 80s documented at the ER. 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 Allergies Allergy/AdvReac Type Severity Reaction Status Date / Time doxycycline Allergy Intermediate HIVES Verified 06/13/22 18:39 Penicillins Allergy Intermediate RASH Verified 06/13/22 18:39 Macrolide Antibiotics Allergy Unknown UNKNOWN Verified 06/13/22 18:39 morphine AdvReac Intermediate GI UPSET Verified 06/13/22 18:39 Home Medications Medication Instructions Recorded Confirmed Type acetaminophen 650 mg 650 mg PO Q8H PRN Pain 06/13/22 08/29/24 History tablet,extended release famotidine 20 mg tablet 20 mg PO BID 06/13/22 08/29/24 History fluoxetine 20 mg capsule 40 mg PO QAM 06/13/22 08/29/24 History levothyroxine 175 mcg tablet 175 mcg PO DAILYBB 06/13/22 08/29/24 History melatonin 3 mg tablet 3 mg PO HS 06/13/22 08/29/24 History semaglutide 2 mg/dose (8 mg/3 mL) 0.75 mg subcut UD 06/13/22 08/29/24 History subcutaneous pen injector (Ozempic) Lactobacillus acidophilus 10 100 mg PO BID #60 caps 06/14/22 08/29/24 Rx billion cell capsule (NewFlora) bupropion HCl 150 mg 24 hr tablet, 150 mg PO QAM 03/07/24 08/29/24 History extended release insulin glargine 100 unit/mL (3 40 unit subcut UD 03/07/24 08/29/24 History mL) subcutaneous pen (Lantus Solostar U-100 Insulin) amlodipine 5 mg tablet (Norvasc) 5 mg PO QAM #30 tabs 03/10/24 08/29/24 Rx aspirin 81 mg tablet,delayed 81 mg PO QAM #30 tabs 03/10/24 08/29/24 Rx release isosorbide mononitrate 30 mg 30 mg PO QAM #30 tabs 03/10/24 08/29/24 Rx tablet,extended release 24 hr lisinopril 20 mg tablet 20 mg PO QAM #30 tabs 03/10/24 08/29/24 Rx metoprolol succinate 50 mg 50 mg PO QAM #30 tabs 03/10/24 08/29/24 Rx tablet,extended release 24 hr nitroglycerin 0.4 mg sublingual See Rx Instructions .Route 03/10/24 08/29/24 Rx tablet (Nitrostat) .COMPLEX PRN chest pain #30 tabs rosuvastatin 40 mg tablet 40 mg PO DAILY #30 tabs 03/10/24 08/29/24 Rx clotrimazole 1 % topical cream 1 applic topical TID #30 grams 07/18/24 08/29/24 Rx metformin 500 mg tablet,extended 1,000 mg PO QAM 08/29/24 08/29/24 History release 24 hr nystatin 100,000 unit/gram topical 1 applic topical TID 08/29/24 08/29/24 History powder ([facility]) triamcinolone acetonide 0.1 % 1 applic topical BID 08/29/24 08/29/24 History topical cream Past Med/Surg History Problem List (Updated 08/30/24 @ 00:46 by Jelani López MD) Dyspnea on minimal exertion (Acute) CHF (congestive heart failure) (Acute) COVID-19 (Acute) Acute hypoxemic respiratory failure Non-ST elevation [place] (NSTEMI) (Acute) Phlegmonous cellulitis Hyponatremia (Acute) History of CVA (cerebrovascular accident) Morbid obesity DM2 (diabetes mellitus, type 2) Cellulitis (Acute) Depression HTN (hypertension) CHF (congestive heart failure) Morbid obesity with BMI of 50.0-59.9, adult Pancreatitis Cholangitis concurrent with and due to calculus of gallbladder Hyperlipidemia, unspecified Hypothyroidism, unspecified Obstructive sleep apnea (adult) (pediatric) Unspecified cerebral artery occlusion with cerebral infarction Medical History Hypertension Diabetes Social History Smoking Status: Never smoker Hx Alcohol Use: Yes Alcohol type: beer Hx Substance Use: No Preferred Language: Italian Communication Ability: Effective [employer] Wireless Manager Required: No Beliefs That Will Affect Care: None Current Living Situation: Alone Feels Safe at Home: Yes Safety Concerns: Feels Safe At This Time Gender Identity: Male Assistive Devices: Cane, Denture - Upper, Denture - Lower and Glasses Review of Systems Review of Systems: As per HPI, all other systems reviewed and negative Physical Exam Physical Exam: GENERAL: Comfortable, unkempt, obese, no respiratory distress SKIN: Normal color, warm HEENT: Alopecia, [place] palpebral conjunctivae, no ptosis, dry buccal mucosa NECK : Supple, no tenderness CHEST : Decreased breath sounds, no tenderness HEART : RRR, no obvious murmurs ABDOMEN: Some distention, nontender EXTREMITIES : Minimal LE swelling, no LE tenderness, no other conspicuous deformities noted NEUROLOGIC : Coherent, no facial asymmetry, MMTS BUE/BLE 4/5, gait and stance not assessed Results & Data Results & Data Vital Signs (Past 12 Hours) Vital Signs Temp Pulse Resp BP Pulse Ox O2 Del Method O2 Flow Rate 08/29/24 21:00 73 20 126/85 96 08/29/24 20:00 80 20 143/98 H 95 Room Air 08/29/24 19:07 78 20 134/95 100 Room Air 08/29/24 18:46 96 Room Air 08/29/24 18:23 76 08/29/24 18:15 80 L Nasal Cannula 0 08/29/24 17:21 36.6 C 86 19 143/90 H 99 Room Air Laboratory Results Laboratory Results WBC 6.58 K/ul (4.8-10.8) 08/29/24 17:40 RBC 5.35 M/uL (4.70-6.10) 08/29/24 17:40 Hgb 14.2 g/dl (14.0-18.0) 08/29/24 17:40 Hct 43.2 % (42.0-52.0) 08/29/24 17:40 MCV 80.7 fL (80.0-100.0) 08/29/24 17:40 MCH 26.5 pg (25.0-34.0) 08/29/24 17:40 MCHC 32.9 g/dL (32.0-36.0) 08/29/24 17:40 RDW Std Deviation 42.5 fL (36.4-46.3) 08/29/24 17:40 RDW Coeff of Oziel 14.6 % (11.5-14.5) H 08/29/24 17:40 Plt Count 273 K/uL (130-400) 08/29/24 17:40 MPV 10.2 fL (9.4-12.4) 08/29/24 17:40 Immature Gran % (Auto) 0.2 % 08/29/24 17:40 Neut % (Auto) 67.5 % 08/29/24 17:40 Lymph % (Auto) 21.4 % 08/29/24 17:40 [place] % (Auto) 5.6 % 08/29/24 17:40 Eos % (Auto) 3.8 % 08/29/24 17:40 Baso % (Auto) 1.5 % 08/29/24 17:40 Neut # (Auto) 4.44 K/uL (1.40-6.50) 08/29/24 17:40 Lymph # (Auto) 1.41 K/uL (1.20-3.40) 08/29/24 17:40 [place] # (Auto) 0.37 K/uL (0.11-0.59) 08/29/24 17:40 Eos # (Auto) 0.25 K/uL (0.00-0.50) 08/29/24 17:40 Baso # (Auto) 0.10 K/uL (0.00-0.20) 08/29/24 17:40 Immature Gran # (Auto) 0.01 K/uL (0.01-0.20) 08/29/24 17:40 Sodium 133 mmol/L (136-145) L 08/29/24 17:40 Potassium 4.6 mmol/L (3.5-5.1) 08/29/24 17:40 Chloride 100 mmol/L (98-107) 08/29/24 17:40 Carbon Dioxide 24 mmol/L (21-32) 08/29/24 17:40 Anion Gap 9 (3-11) 08/29/24 17:40 BUN 12 mg/dl (6-23) 08/29/24 17:40 Creatinine 1.51 mg/dl (0.6-1.4) H 08/29/24 17:40 Est Cr Clr Drug Dosing 65.1 ml/min 08/29/24 17:40 eGFR 53.54 08/29/24 17:40 BUN/Creatinine Ratio 7.9 (10-20) L 08/29/24 17:40 Glucose 212 mg/dl (70-99(Fasting)) H 08/29/24 17:40 Calcium 9.7 mg/dl (8.6-10.3) 08/29/24 17:40 Magnesium 1.8 mg/dl (1.7-2.4) 08/29/24 17:40 Total Bilirubin 0.9 mg/dl (0.2-1.0) 08/29/24 17:40 AST 12 U/L (13-39) L 08/29/24 17:40 ALT 10 U/L (7-52) 08/29/24 17:40 Alkaline Phosphatase 66 U/L (34-104) 08/29/24 17:40 Troponin I High Sens 26.2 pg/ml (0-20) H 08/29/24 20:33 B-Natriuretic Peptide 438 pg/ml (0-100) H 08/29/24 17:40 Total Protein 7.3 gm/dl (6.0-8.3) 08/29/24 17:40 Albumin 4.2 gm/dl (3.4-5.0) 08/29/24 17:40 Globulin 3.1 gm/dl (2.5-4.0) 08/29/24 17:40 Albumin/Globulin Ratio 1.4 (0.9-2) 08/29/24 17:40 Lipase 16 U/L (11-82) 08/29/24 17:40 Procalcitonin < 0.02 ng/ml (0-0.5) 08/29/24 20:33 Adenovirus (PCR) Not Detected (NotDetected) 08/29/24 Unknown B. pertussis DNA (PCR) Not Detected (NotDetected) 08/29/24 Unknown B.parapertussis DNA PCR Not Detected (NotDetected) 08/29/24 Unknown C. pneumoniae DNA (PCR) Not Detected (NotDetected) 08/29/24 Unknown Coronavirus OC43 (PCR) Not Detected (NotDetected) 08/29/24 Unknown Coronavirus HKU1 (PCR) Not Detected (NotDetected) 08/29/24 Unknown Coronavirus 229E (PCR) Not Detected (NotDetected) 08/29/24 Unknown SARS-CoV-2 (PCR) DETECTED (NotDetected) A 08/29/24 Unknown Coronavirus NL63 (PCR) Not Detected (NotDetected) 08/29/24 Unknown Human Metapneumovir PCR Not Detected (NotDetected) 08/29/24 Unknown Influenza Type A (PCR) Not Detected (NotDetected) 08/29/24 Unknown Influenza Type B (PCR) Not Detected (NotDetected) 08/29/24 Unknown M. pneumoniae (PCR) Not Detected (NotDetected) 08/29/24 Unknown Parainfluenza 1 (PCR) Not Detected (NotDetected) 08/29/24 Unknown Parainfluenza 2 (PCR) Not Detected (NotDetected) 08/29/24 Unknown Parainfluenza 3 (PCR) Not Detected (NotDetected) 08/29/24 Unknown Parainfluenza 4 (PCR) Not Detected (NotDetected) 08/29/24 Unknown RSV (PCR) Not Detected (NotDetected) 08/29/24 Unknown Entero/Rhino (PCR) Not Detected (NotDetected) 08/29/[address] head: No acute findings in the head/brain. CT chest: 1. No evidence of pulmonary embolism. 2. Stable cardiomegaly. 3. Small bilateral pleural effusions. 4. Mild bibasilar atelectasis or airspace disease. Few scattered foci of groundglass opacities in the right upper lobe. Nonspecific and may relate to edema, infectious/inflammatory process. 5. Multiple small and mildly enlarged mediastinal nodes. The larger right paratracheal node up to 2.3 cm similar to the prior. A 1.4 cm right paratracheal node appears larger than the prior. Few other small mediastinal nodes are nonspecific, and larger than the prior study. May represent infectious, inflammatory or neoplastic process. Correlate and consider follow-up. 6. Biliary stent partially visualized. Biliary stent was present on 06/13/2022. Similar configuration of the gallbladder with mild surrounding fat stranding. Diagnostic Findings EKG as per my interpretation :Rate 85, NSR, normal axis, inferior infarct, nonspecific T wave abnormalities, PVCs
[2024-08-29 22:03] LABS: Partial Thromboplastin Ratio 1.1; Partial Thromboplastin Time 30 Seconds (21-31)
[2024-08-29] MEDS: ALBUT/IPRATROP 3MG/0.5MG NEB 3 ML VIAL NEB STA (22:14)
[2024-08-29] MEDS ORDERED: PROMETHAZINE 12.5 MG/50.5 ML BAG IV PRN (22:15)
[2024-08-29] MEDS ORDERED: oxyCODONE HCL IR 5 MG TAB (IMMEDIATE RELEASE) PO PRN (22:15)
[2024-08-29] MEDS ORDERED: ACETAMINOPHEN 325 MG TAB PO PRN (22:16)
[2024-08-29 22:21] LABS: Thyroid Stimulating Hormone 30.558 uIu/ml (0.300-4.500)
[2024-08-29 22:24] LABS: Appearance Urine Clear (Clear); Bacteria Urine Automated None Seen (None Seen); Bilirubin Urine Negative (Negative); Blood Urine Negative (Negative); Cast Urine Automated 0-2 /lpf (0-2); Color Urine Yellow; Epithelial Cell Urine Auto 0-2 /hpf (0-2); Glucose Urine UA Negative (Negative); Ketones Urine Negative (Negative); Leukocyte Esterase Urine Negative (Negative); Nitrite Urine Negative (Negative); Protein Urine Trace (Negative); RBC Urine Automated 0-2 /hpf (0-2); Specific Gravity Urine 1.015 (1.000-1.030); Urobilinogen Urine Negative (Negative); WBC Urine Automated 0-5 /hpf (0-5); pH Urine 5.5 (4.5-7.5)
[2024-08-29] MEDS: OPTIRAY 320 125ml IV ONE (22:45)
[2024-08-29 22:57] LABS: T4 Free Thyroxine 0.46 ng/dl (0.61-1.60)
[2024-08-29] MEDS: MAGNESIUM SULFATE / D5W 1 GM/100 ML BAG IV STA (23:00)
--- NOTE | 2024-08-30 00:23 | CT Scan Report ---
Exam(s): CT HEAD Without Contrast EXAM: CT Head Without Intravenous Contrast CLINICAL HISTORY: Reason for exam: LUE weakness. TECHNIQUE: Axial computed tomography images of the head/brain without intravenous contrast. CTDI is 35.92 mGy and DLP is 624.41 mGy-cm. Automated exposure control was utilized for the study. A dose lowering technique was utilized adhering to the principles of ALARA. COMPARISON: CT Head dated 03/07/24 FINDINGS: Brain: Volume loss with prominent ventricles and sulci. Moderate periventricular and subcortical white matter hypoattenuation likely reflects chronic small vessel disease. Similar to the prior. Right basal ganglia old lacunar infarct. No hemorrhage. Ventricles: See above. Bones/joints: Unremarkable. No acute fracture. Soft tissues: Unremarkable. Sinuses: Mild paranasal sinus mucosal thickening. No fluid levels. Mastoid air cells: Unremarkable as visualized. No mastoid effusion. IMPRESSION: No acute findings in the head/brain. Electronically signed by: Breanna Tapia M.D. 08/30/24 00:23 AM
[2024-08-30] MEDS ORDERED: GLUCOSE 40% GEL 15 GM TUBE PO PRN (00:38)
[2024-08-30] MEDS ORDERED: GLUCOSE 10 TAB/TUBE PO PRN (00:38)
[2024-08-30] MEDS ORDERED: CARBOHYDRATES FOR HYPOGLYCEMIA PO PRN (00:38)
[2024-08-30] MEDS ORDERED: GLUCAGON FOR INJ 1 MG VIAL SQ PRN (00:38)
[2024-08-30] MEDS ORDERED: DEXTROSE 50% 50 ML SYRINGE IV PRN (00:38)
[2024-08-30] MEDS: ALBUMIN 25% 12.5 GM/50 ML VIAL IV STA (01:09)
[2024-08-30] MEDS: INSULIN ASPART PER UNIT CHARGE SC SCH (01:09)
[2024-08-30] MEDS: guaiFENesin 600 MG TABCR PO SCH (01:11)
[2024-08-30] MEDS: MELATONIN 3 MG TAB PO SCH (01:12)
--- NOTE | 2024-08-30 01:13 | CT Scan Report ---
Exam(s): CTA CHEST IV Amt: 119 ml optiray 320 EXAM: CT Angiography Chest With Intravenous Contrast CLINICAL HISTORY: Reason for exam: cp. TECHNIQUE: Axial computed tomographic angiography images of the chest with intravenous contrast. CTDI is 54.26 mGy and DLP is 1020.37 mGy-cm. Automated exposure control was utilized for the study. A dose lowering technique was utilized adhering to the principles of ALARA. MIP reconstructed images were created and reviewed. COMPARISON: CTA Chest dated 09/29/2021, CT abdomen pelvis dated 06/13/2022 FINDINGS: Pulmonary arteries: Unremarkable. No pulmonary embolism. Aorta: No acute findings. No thoracic aortic aneurysm. Great vessels of aortic arch: Aberrant right subclavian artery. Variant anatomy. Lungs: Mild bibasilar atelectasis or airspace disease. Few scattered foci of groundglass opacities in the right upper lobe. Pleural space: Small bilateral pleural effusions. No pneumothorax. Heart: Stable cardiomegaly. No significant pericardial effusion. No evidence of RV dysfunction. Mediastinum: Multiple small and mildly enlarged mediastinal nodes. The larger right paratracheal node up to 2.3 cm similar to the prior. A 1.4 cm right paratracheal node appears larger than the prior. Few other small mediastinal nodes are nonspecific, and larger than the prior study. Bones/joints: No acute fracture. No dislocation. Soft tissues: Unremarkable. Lymph nodes: See above. Gallbladder and bile ducts: Biliary stent partially visualized. Biliary stent was present on 06/13/2022. Similar configuration of the gallbladder with mild surrounding fat stranding. IMPRESSION: 1. No evidence of pulmonary embolism. 2. Stable cardiomegaly. 3. Small bilateral pleural effusions. 4. Mild bibasilar atelectasis or airspace disease. Few scattered foci of groundglass opacities in the right upper lobe. Nonspecific and may relate to edema, infectious/inflammatory process. 5. Multiple small and mildly enlarged mediastinal nodes. The larger right paratracheal node up to 2.3 cm similar to the prior. A 1.4 cm right paratracheal node appears larger than the prior. Few other small mediastinal nodes are nonspecific, and larger than the prior study. May represent infectious, inflammatory or neoplastic process. Correlate and consider follow-up. 6. Biliary stent partially visualized. Biliary stent was present on 06/13/2022. Similar configuration of the gallbladder with mild surrounding fat stranding. Electronically signed by: Breanna Tapia M.D. 08/30/24 01:13 AM
[2024-08-30] MEDS: LANTUS PER UNIT CHARGE SQ STA (02:54)
[2024-08-30] MEDS: LEVOTHYROXINE SODIUM 200 MCG TABLET PO SCH (06:09)
[2024-08-30] MEDS: HEPARIN SOD 5,000 UNIT/0.5 ML VIAL SQ SCH (06:09)
[2024-08-30 07:30] LABS: Basophils % (auto) 1.5 %; Eosinophils # (auto) 0.28 K/uL (0.00-0.50); Eosinophils % (auto) 4.1 %; Hematocrit (blood only) 36.7 % (42.0-52.0); Hemoglobin 12.2 g/dl (14.0-18.0); Immature Granulocytes # (auto) 0.02 K/uL (0.01-0.20); Immature Granulocytes % (auto) 0.3 %; Lymphocytes % (auto) 21.9 %; Mean Corpuscular Hemoglobin 26.8 pg (25.0-34.0); Mean Corpuscular Hgb Conc 33.2 g/dL (32.0-36.0); Mean Corpuscular Volume 80.5 fL (80.0-100.0); Mean Platelet Volume 9.8 fL (9.4-12.4); Monocytes # (auto) 0.41 K/uL (0.11-0.59); Neutrophils # (auto) 4.55 K/uL (1.40-6.50); Neutrophils % (auto) 66.2 %; Platelet Count 217 K/uL (130-400); RDW Coefficient of Variation 14.6 % (11.5-14.5); RDW Standard Deviation 42.5 fL (36.4-46.3); Red Blood Count 4.56 M/uL (4.70-6.10); White Blood Count 6.86 K/ul (4.8-10.8)
[2024-08-30 07:53] LABS: BUN Creatinine Ratio 9.4 (10-20); Calcium 9.3 mg/dl (8.6-10.3); Creatinine Clr Calc Pharmacy 65.9 ml/min; Potassium 3.6 mmol/L (3.5-5.1)
--- NOTE | 2024-08-30 07:55 | XRay Report ---
EXAM: XR chest 1V portable CLINICAL HISTORY: chest pain sjb TECHNIQUE: An X-ray image of the chest is obtained in AP projection. COMPARISON: 06/27/2024. FINDINGS: Pulmonary Parenchyma: Bibasal accentuation of vascular markings. No evidence of consolidation, collapse or focal opacities was seen. No pulmonary nodule seen. Blunting of both costophrenic angles by likely effusion/ pleural thickening. Heart and Mediastinum: The cardiac silhouette is enlarged With bilateral hilar congestion. No mediastinal widening or masses. No hilar or mediastinal lymphadenopathy. Bony Thorax: Bony thorax appears intact without fractures or deformities. Soft Tissues: Soft tissues overlying the chest wall are unremarkable. IMPRESSION: 1. Redemonstrated mild cardiomegaly with increase bilateral hilar congestion. Echocardiography may be done if clinically warranted. 2. Bibasal accentuation of vascular markings with blunting of both costophrenic angles, likely edema/ postinflammatory, new finding, Suggest clinical and lab correlation. Electronically signed by Jeremiah Martinez 08-30-2024 07:55 AM
[2024-08-30] MEDS ORDERED: LACTOBACILLUS ACIDOPHILUS PO SCH (09:00)
[2024-08-30] MEDS ORDERED: BILLION CELL PO SCH (09:00)
[2024-08-30] MEDS: ISOSORBIDE MONO EXTENDED REL 30 MG TABCR PO SCH (09:15)
[2024-08-30] MEDS: ASPIRIN 81 MG ECTAB PO SCH (09:16)
[2024-08-30] MEDS: FLUoxetine HCL 20 MG CAP PO SCH (09:16)
[2024-08-30] MEDS: METOPROLOL SUCC 50MG EXT REL TAB PO SCH (09:16)
[2024-08-30] MEDS: buPROPion XL 150 MG TABCR PO SCH (09:16)
[2024-08-30] MEDS: ROSUVASTATIN CALCIUM 20 MG TAB PO SCH (09:16)
[2024-08-30] MEDS: amLODIPine BESYLATE 5 MG TAB PO SCH (09:17)
[2024-08-30] MEDS: FAMOTIDINE 20 MG TAB PO SCH (09:17)
[2024-08-30] MEDS: LANTUS PER UNIT CHARGE SQ SCH (09:22)
[2024-08-30 11:48] VITALS: RESP 16
--- NOTE | 2024-08-30 12:04 | Discharge Summary ---
Discharge Summary Date of Service August 30, 2024 Principal Dx & Hospital Course #1 = Principal Diagnosis (1) Hypothyroidism, unspecified: With significantly elevated TSH and low free T4 (2) COVID-19 virus infection: (3) DM2 (diabetes mellitus, type 2): (4) Morbid obesity: Plan Patient presented to the emergency room with complaints of fatigue and a dry cough and some shortness of breath. In the emergency room tested positive for COVID-19. He briefly needed some supplemental oxygen and was referred for further evaluation. Patient was cared for in the hospital. At the time of admission it was determined that he did not meet criteria for goal-directed medical therapy for COVID-19. He actually remained on room air throughout his hospitalization. Additional laboratory testing also revealed a significantly elevated TSH and low free T4. Patient is on Synthroid, his dose was increased. By the following day patient did not have any fevers. His shortness of breath is resolved. On ambulatory pulse oximetry his O2 sat remained at 96%. Patient is then started to give a whole host of symptoms of fatigue, worsening ambulatory dysfunction, generalized malaise. The symptoms are very consistent with his hypothyroidism not being adequately treated. He then shared that he may miss dosing of his Synthroid a few times a week. Asked explained to the patient that this most likely is the cause of his symptoms and that he is not adequately treating his hypothyroidism. The COVID-19 infection may have just exacerbated some of these symptoms. Patient is ambulatory and going to work and driving. Did not meet criteria for any home health care. He denied any other needs. He did not meet criteria for hospitalization for COVID-19 or even goal- directed therapies. He will continue his usual outpatient medications, did increase his Synthroid dose. He should follow-up with his PCP to closely monitor his thyroid laboratory testing adjusting dosages of his Synthroid as needed. Notes For Next Care Provider Check TSH in approximately 4 to 6 weeks Continue to encourage patient compliance with daily dosing of his Synthroid Medication Changes From Visit Synthroid dose increased Admission HPI Per Admitting Provider History obtained from patient and records. Medical history significant for chronic systolic heart failure EF (40 to 45%, TTE 2023), hypertension, hyperlipidemia, CHARLEEN CPAP intolerance, CVA, DM2 insulin requiring, hypothyroidism, anxiety/mood disorder, chronic left ulnar/radial neuropathy. Last confinement February 2024 for NSTEMI. Severe multivessel CAD on cardiac catheterization. Medical management recommended by Cardiology. 1 week history of dry cough symptoms with worsening SOB. Patient with heart pounding sensation and transient left-sided chest pain today. Denies fluid retention. Denies headache. Falling a lot at home. Usual left arm weakness, unable to hold a lot of things. 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 Transient O2 sats of 80s documented at the ER. 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 Lungs: Decreased breath sounds, few crackles at bases CV: S1-S2, regular Abdomen: Soft, nontender, nondistended Extremities: Trace pretibial edema Neuro: No focal deficits Psych: Cooperative, normal mood Updated Medication List Medication Instructions Recorded Confirmed Type acetaminophen 650 mg 650 mg PO Q8H PRN Pain 06/13/22 08/29/24 History tablet,extended release famotidine 20 mg tablet 20 mg PO BID 06/13/22 08/29/24 History fluoxetine 20 mg capsule 40 mg PO QAM 06/13/22 08/29/24 History levothyroxine 175 mcg tablet 175 mcg PO DAILYBB 06/13/22 08/29/24 History melatonin 3 mg tablet 3 mg PO HS 06/13/22 08/29/24 History semaglutide 2 mg/dose (8 mg/3 mL) 0.75 mg subcut UD 06/13/22 08/29/24 History subcutaneous pen injector (Ozempic) Lactobacillus acidophilus 10 100 mg PO BID #60 caps 06/14/22 08/29/24 Rx billion cell capsule (NewFlora) bupropion HCl 150 mg 24 hr tablet, 150 mg PO QAM 03/07/24 08/29/24 History extended release insulin glargine 100 unit/mL (3 40 unit subcut UD 03/07/24 08/29/24 History mL) subcutaneous pen (Lantus Solostar U-100 Insulin) amlodipine 5 mg tablet (Norvasc) 5 mg PO QAM #30 tabs 03/10/24 08/29/24 Rx aspirin 81 mg tablet,delayed 81 mg PO QAM #30 tabs 03/10/24 08/29/24 Rx release isosorbide mononitrate 30 mg 30 mg PO QAM #30 tabs 03/10/24 08/29/24 Rx tablet,extended release 24 hr lisinopril 20 mg tablet 20 mg PO QAM #30 tabs 03/10/24 08/29/24 Rx metoprolol succinate 50 mg 50 mg PO QAM #30 tabs 03/10/24 08/29/24 Rx tablet,extended release 24 hr nitroglycerin 0.4 mg sublingual See Rx Instructions .Route 03/10/24 08/29/24 Rx tablet (Nitrostat) .COMPLEX PRN chest pain #30 tabs rosuvastatin 40 mg tablet 40 mg PO DAILY #30 tabs 03/10/24 08/29/24 Rx clotrimazole 1 % topical cream 1 applic topical TID #30 grams 07/18/24 08/29/24 Rx metformin 500 mg tablet,extended 1,000 mg PO QAM 08/29/24 08/29/24 History release 24 hr nystatin 100,000 unit/gram topical 1 applic topical TID 08/29/24 08/29/24 History powder ([facility]) triamcinolone acetonide 0.1 % 1 applic topical BID 08/29/24 08/29/24 History topical cream levothyroxine 200 mcg tablet 200 mcg PO DAILYBB #30 tabs 08/30/24 Rx (Synthroid) Hospital Stay Data Consultations 08/29/24 21:25 ED Decision to Admit Stat Diagnostic Imagining Performed 08/29/24 22:10 CT angio chest PE protocol Stat CT head/brain wo con Stat Reviewed imaging, laboratory and diagnostic studies. Pertinent findings as below. TSH 30.5 Free T4 0.46 Troponins flat Creatinine 1.49 Hemoglobin 12.2 WBC 6.8 Pending Results Patient Have Any Pending Studies at Discharge: No Discharge Instructions Given to Patient (Per Discharging Provider) You will need to get your TSH checked in 4 to 6 weeks Take your Synthroid daily at the same time 1 hour prior to eating Total Time Total Time Spent Total Time Spent (In Minutes): 32
[2024-08-30 12:09] VITALS: BP 123/81; TEMP 98.4
[2024-08-30 12:49] VITALS: PULSE 67; O2SAT 95
--- NOTE | 2024-08-30 17:00 | Electrocardiogram Report ---
Test Reason : Blood Pressure : */* mmHG Vent. Rate : 84 BPM Atrial Rate : 84 BPM P-R Int : 242 ms QRS Dur : 88 ms QT Int : 400 ms P-R-T Axes : 51 18 109 degrees QTcB Int : 472 ms Sinus rhythm with 1st degree A-V block with frequent Premature ventricular complexes Nonspecific T wave abnormality Prolonged QT Abnormal ECG When compared with ECG of 27-Jun-2024 18:17, Premature ventricular complexes are now Present Criteria for Inferior infarct are no longer Present Confirmed by Michael Shrestha ([id number]) on 08/30/2024 5:00:19 PM Referred By: REFERRED SELF Confirmed By: Michael Shrestha
== END 2024-08-30 13:41 | disposition home or self-care (01) | DRG 643 ==
LOC: ED 17:19 → 2N 22:13 → SUATTDRO 22:13 → 2N 08-30 00:11

== ENCOUNTER 2025-01-05 13:19 | Observation (INO) ==
--- NOTE | 2025-01-05 14:10 | XRay Report ---
XR chest 1V portable CLINICAL HISTORY: weakness COMPARISON STUDY: 12/10/2024 FINDINGS: Stable mild cardiomegaly without pulmonary vascular congestion. No effusion, consolidation, or pneumothorax. IMPRESSION: No acute findings. ACT 112: Negative or not required by law. Electronically signed by: Jone Kwon M.D. 01/05/2025 2:08 PM
--- NOTE | 2025-01-05 14:53 | Electrocardiogram Report ---
Test Reason : Blood Pressure : */* mmHG Vent. Rate : 95 BPM Atrial Rate : 95 BPM P-R Int : 218 ms QRS Dur : 86 ms QT Int : 366 ms P-R-T Axes : 44 21 146 degrees QTcB Int : 459 ms Sinus rhythm with 1st degree A-V block Nonspecific T wave abnormality Abnormal ECG When compared with ECG of 10-Dec-2024 20:48, MA interval has increased Borderline criteria for Inferior infarct are no longer Present Confirmed by Michael Finney ([id number]) on 01/05/2025 2:53:06 PM Referred By: Confirmed By: Michael Finney
[2025-01-05 15:20] LABS: Basophils # (auto) 0.07 K/uL (0.00-0.20); Eosinophils # (auto) 0.31 K/uL (0.00-0.50); Eosinophils % (auto) 4.3 %; Hematocrit (blood only) 40.4 % (42.0-52.0); Hemoglobin 13.6 g/dl (14.0-18.0); Immature Granulocytes # (auto) 0.02 K/uL (0.01-0.20); Immature Granulocytes % (auto) 0.3 %; Lymphocytes # (auto) 1.09 K/uL (1.20-3.40); Mean Corpuscular Hgb Conc 33.7 g/dL (32.0-36.0); Mean Corpuscular Volume 80.3 fL (80.0-100.0); Mean Platelet Volume 8.9 fL (9.4-12.4); Monocytes # (auto) 0.51 K/uL (0.11-0.59); Neutrophils # (auto) 5.28 K/uL (1.40-6.50); Neutrophils % (auto) 72.4 %; Platelet Count 225 K/uL (130-400); RDW Coefficient of Variation 14.5 % (11.5-14.5); RDW Standard Deviation 41.9 fL (36.4-46.3); Red Blood Count 5.03 M/uL (4.70-6.10); White Blood Count 7.28 K/ul (4.8-10.8)
[2025-01-05 15:32] LABS: Alanine Aminotransferase 39 U/L (7-52); Albumin Globulin Ratio 1.3 (0.9-2); Albumin Level 4.1 gm/dl (3.4-5.0); Alkaline Phosphatase 79 U/L (34-104); Anion Gap 8 (3-11); Aspartate Aminotransferase 31 U/L (13-39); BUN Creatinine Ratio 11.3 (10-20); Bilirubin,Total 0.7 mg/dl (0.2-1.0); Blood Urea Nitrogen 12 mg/dl (6-23); Calcium 9.6 mg/dl (8.6-10.3); Carbon Dioxide 28 mmol/L (21-32); Chloride 101 mmol/L (98-107); Globulin 3.1 gm/dl (2.5-4.0); Glucose 106 mg/dl (70-99(Fasting)); Lipase 15 U/L (11-82); Magnesium 1.8 mg/dl (1.7-2.4); Potassium 4.2 mmol/L (3.5-5.1); Sodium 137 mmol/L (136-145); Total Protein 7.2 gm/dl (6.0-8.3)
[2025-01-05 15:35] LABS: Troponin I High Sensitivity 29.2 pg/ml (0-20)
--- NOTE | 2025-01-05 15:43 | CT Scan Report ---
CT head/brain wo con CLINICAL HISTORY: weakness. TECHNIQUE: Multiple axial CT images of the head were obtained without contrast. A dose lowering tech nique was utilized adhering to the principles of ALARA. CT DOSE: 1100.35 mGy.cm COMPARISON: 12/10/2024 FINDINGS: No intracranial hemorrhage seen. No mass effect, midline shift, or hydrocephalus. There is stable severe patchy periventricular hypodensity which is nonspecific but usually represents chronic small vessel ischemic change. There is a stable small old lacunar infarction in the right basal gangl ia. No skull fracture seen. There is mild mucosal thickening in the maxillary and ethmoid sinuses. IMPRESSION: No acute findings. Otherwise as described. ACT 112: Negative or not required by law. The above report was generated using voice recognition software. It may contain grammatical, syntax o r spelling errors. Electronically signed by: Jone Kwon M.D. 01/05/2025 3:41 PM
[2025-01-05 15:45] LABS: INR 1.1 (0.9-1.1); Partial Thromboplastin Ratio 1.1; Partial Thromboplastin Time 30 Seconds (21-31); Prothrombin Time 11.4 Seconds (9.0-12.0); Thyroid Stimulating Hormone 0.455 uIu/ml (0.300-4.500)
--- NOTE | 2025-01-05 18:05 | History & Physical Report ---
Date of Service January 05, 2025 Assessment & Plan (1) Weakness: (2) Fall: (3) Ambulatory dysfunction: (4) History of CVA (cerebrovascular accident): Plan: Patient is 59 year old male with PMH depression, HTN, DM II, CVA with residual left sided weakness presented to ER with complaint of bilateral leg weakness x 1 month and recurrent falls. CT Head: no acute intracranial changes Troponins flat at 29 and 32. History of chronically elevated troponins in past. Denies chest pain, shortness of breath. EKG sinus rhythm first-degree AV block, nonspecific T wave changes per my interpretation Remaining labs fairly unremarkable R/O acute/subacute CVA Fall precautions Tele to monitor for arrhythmias EKG in am Lipids, A1c, CBC, BMP in am MRI brain U/S carotids Echo with bubble study PT/OT consult Patient previously on aspirin and rosuvastatin Restart aspirin, rosuvastatin daily (5) Knee pain: Plan: Reports left knee pain x months Obtain xray right and left knees to r/o arthritis (6) Depression: Plan: Recent SI and suicide attempt with aspirin overdose Discharged from [facility] on 01/04/25 Reports continued depression and "wishes would " but denies any current plan or recurrent attempt Will continue sertraline Behavioral health consult Will make pt Full code for now. Pt state prior would have wanted to be full code but just wishes he would . Would appreciate psych to weigh in on pt's capacity and reassess code status (7) DM2 (diabetes mellitus, type 2): Plan: Insulin-dependent A1c: 10.7 on 08/10/2024 Continue home insulin NovoLog sliding scale per protocol A1c in a.m. (8) Hypertension: Plan: BPs elevated in ER156/95, 131/95 Patient reports previously was on lisinopril. Reports has not taken for for 5 months Monitor BP. May need to consider resuming BP medication DVT Prophylaxis Lovenox SQ Admit med tele Will make pt Full code for now. Pt states prior would have wanted to be full code but just wishes he would . Will need to reassess code status Follows with Dr Jimenez for routine care Pt was seen and care coordinated with Dr Rivera. See addendum I spent a total of 77 minutes reviewing notes, outpatient records, labs, medica tion, coordinating, documenting and providing care for this patient excluding time spent in the performance of separately billed services and excluding time spent by another provider/QHP. History of Present Illness Chief Complaint: Leg weakness and falls Primary Care Provider: Jennifer Jimenez DO Patient is 59 year old male with PMH depression, HTN, DM II, CVA with residual left sided weakness presented to ER with complaint of bilateral leg weakness x 1 month and recurrent falls. History obtained from patient and patient's brother at bedside. Patient reports chronic left arm and leg weakness from prior stroke. Walks with cane at baseline. Patient is [id number]. He reports that he has been dropping things from left arm frequently. He states he previously worked at [employer] in the [place]. He reports he recently lost his job as he states he was not able to perform tasks and was dropping things and having difficulty ambulating with cane. For greater than a month with bilateral knee discomfort and states has been falling. Patient feels like his knees give out and are weak causing him to fall. Denies noted knee edema or erythema. Patient states while hospitalized at [place] [facility] had continued ambulatory difficulty and was using wheelchair frequently in facility. Upon returning home yesterday patient ambulating into house and he reports felt like his knees gave out and lost balance and fell into the bushes. Patient denies any injury. Denies hitting head, loss of consciousness. He denies any dizziness, chest pain or shortness of breath occurring prior to falls. Patient reports rolled out of bed during the middle the night. His brother was able to get him back in bed. Patient's brother reports he rolled out of bed again this morning and was on floor for approximately 20 minutes. Brother was unable to get patient up and EMS was called for transport patient to ER. Patient denies any known injuries. Denies hitting head or LOC. Brother is concerned that patient is unsafe at home with these recurrent falls. Brother states that he has noted for the past month patient seems to have slower and somewhat mumbled speech. He thought it was secondary to sleep deprivation. Patient and patient's brother concerned that patient may have had another stroke. Patient denies any changes in left arm weakness. He denies any RUE weakness or paresthesias. Patient reports several years ago. Since has been having depression. Reports mother's in fall 2023 and had worsening depression. He states recent loss of job has made him more depressed and the end of November he was feeling suicidal and attempted suicide by reportedly taking half a bottle of aspirin. Patient was seen in ER on 12/11/2024 and was ultimately medically cleared and went to [facility]. Patient states was discharged home yesterday. He states he continues to feel depressed and just wishes "that I would " but denies any current plan. Denies fever/chills, diaphoresis, N/V/D/C, BECERRA, dizziness, syncope, vision changes, neck pain, CP, SOB, palpitations, cough, sore throat, choking, otalgia, rhinorrhea, abdominal pain, paresthesias, extremity edema, back pain, rashes, urinary symptoms. Allergies Allergy/AdvReac Type Severity Reaction Status Date / Time doxycycline Allergy Intermediate HIVES Verified 01/05/25 16:50 Penicillins Allergy Intermediate RASH Verified 01/05/25 16:50 Macrolide Antibiotics Allergy Unknown UNKNOWN Verified 01/05/25 16:50 morphine AdvReac Intermediate GI UPSET Verified 01/05/25 16:50 Home Medications Medication Instructions Recorded Confirmed Type cyanocobalamin (vitamin B-12) 1,000 mcg PO QAM 01/05/25 01/05/25 History 1,000 mcg tablet (Vitamin B-12) insulin detemir U-100 100 unit/mL 20 unit subcut QAM 01/05/25 01/05/25 History (3 mL) subcutaneous pen levothyroxine 175 mcg tablet 175 mcg PO DAILYBB 01/05/25 01/05/25 History nitroglycerin 0.4 mg sublingual 0.4 mg sublingual DIRECTED PRN 01/05/25 01/05/25 History tablet (Nitrostat) Chest Pain omeprazole 20 mg tablet,delayed 20 mg PO QAM 01/05/25 01/05/25 History release sennosides 8.6 mg-docusate sodium 2 tab-cap PO QAM 01/05/25 01/05/25 History 50 mg tablet (Senna Plus) sertraline 50 mg tablet 150 mg PO QAM 01/05/25 01/05/25 History Past Med/Surg History Problem List (Updated 01/05/25 @ 21:56 by Angela Moore PA-C) Ambulatory dysfunction Knee pain Fall (Acute) Weakness (Acute) COVID-19 virus infection Dyspnea on minimal exertion (Acute) CHF (congestive heart failure) (Acute) COVID-19 (Acute) Acute hypoxemic respiratory failure Non-ST elevation VA (NSTEMI) (Acute) Phlegmonous cellulitis Hyponatremia (Acute) History of CVA (cerebrovascular accident) Morbid obesity DM2 (diabetes mellitus, type 2) Cellulitis (Acute) Depression HTN (hypertension) CHF (congestive heart failure) Morbid obesity with BMI of 50.0-59.9, adult Pancreatitis Cholangitis concurrent with and due to calculus of gallbladder Hyperlipidemia, unspecified Hypothyroidism, unspecified Obstructive sleep apnea (adult) (pediatric) Unspecified cerebral artery occlusion with cerebral infarction Medical History Hypertension Diabetes Social History Smoking Status: Never smoker Hx Alcohol Use: No Hx Substance Use: No Preferred Language: Mongolian Communication Ability: Effective Panama Hat Blocker Required: No Beliefs That Will Affect Care: None Current Living Situation: Alone Current Living Situation Comment: home alone Other Information That Helps Us Care for You: No Feels Safe at Home: Yes Safety Concerns: Feels Safe At This Time Gender Identity: Male Assistive Devices: Cane, Denture - Upper, Denture - Lower and Glasses Review of Systems Review of Systems: All systems reviewed & are unremarkable except as noted in HPI & below Physical Exam Physical Exam: General: no distress, obese male Head: normocephalic, atraumatic Eyes: PERRL, EOM's intact, conjunctiva non-injected, anicteric ENT: normal inspection external ears, nose, mucous membranes moist Neck: supple, trachea midline, non-tender Lungs: clear, no respiratory distress, no wheezing/rhonchi/rales CV: RRR, no murmur, no pretibial edema Abd: normal BS, soft, non-tender Ext: no cyanosis, no calf tenderness, left anterior knee tenderness with ecchymosis noted anterior medial knee. No erythema or edema knees noted. ROM knees intact bilaterally. +LUE and LLE 4/5 strength, RUE and RLE 5/5 strength Neuro: A&O x 3, no focal deficits noted, flat affect, slow speech but speech clear. No nystagmus. face is strong and symmetric, hearing grossly intact, soft palate elevates symmetrically, shoulder shrug intact, tongue is midline, normal movement, no fasciculations Skin: warm, dry Results & Data Results & Data Vital Signs (Past 12 Hours) Vital Signs Temp Pulse Pulse Resp BP BP Pulse Ox 01/05/25 17:00 85 17 131/95 100 01/05/25 16:13 93 H 01/05/25 15:30 89 19 156/95 H 96 01/05/25 14:12 95 H 18 98 01/05/25 13:23 36.6 C 97 H 19 141/83 H 99 O2 Del Method 01/05/25 17:00 Room Air 01/05/25 16:13 01/05/25 15:30 Room Air 01/05/25 14:12 Room Air 01/05/25 13:23 Room Air Laboratory Results Short CBC 01/05/25 Range/Units 14:55 WBC 7.28 (4.8-10.8) K/ul Hgb 13.6 L (14.0-18.0) g/dl Hct 40.4 L (42.0-52.0) % Plt Count 225 (130-400) K/uL BMP 01/05/25 14:55 Sodium 137 Potassium 4.2 Chloride 101 Carbon Dioxide 28 BUN 12 Creatinine 1.06 Glucose 106 H Calcium 9.6 Liver Function 01/05/25 Range/Units 14:55 Total Bilirubin 0.7 (0.2-1.0) mg/dl AST 31 (13-39) U/L ALT 39 (7-52) U/L Alkaline Phosphatase 79 (34-104) U/L Albumin 4.1 (3.4-5.0) gm/dl Diagnostic Findings Chest X-Ray 01/05/25 13:40 XR chest 1V portable CLINICAL HISTORY: weakness COMPARISON STUDY: 12/10/2024 FINDINGS: Stable mild cardiomegaly without pulmonary vascular congestion. No effusion, consolidation, or pneumothorax. IMPRESSION: No acute findings. ACT 112: Negative or not required by law. Electronically signed by: Jone Kwon M.D. 01/05/2025 2:[address] 01/05/25 13:41 CT head/brain wo con CLINICAL HISTORY: weakness. TECHNIQUE: Multiple axial CT images of the head were obtained without contrast. A dose lowering technique was utilized adhering to the principles of ALARA. CT DOSE: 1100.35 mGy.cm COMPARISON: 12/10/2024 FINDINGS: No intracranial hemorrhage seen. No mass effect, midline shift, or hydrocephalus. There is stable severe patchy periventricular hypodensity which is nonspecific but usually represents chronic small vessel ischemic change. There is a stable small old lacunar infarction in the right basal ganglia. No skull fracture seen. There is mild mucosal thickening in the maxillary and ethmoid sinuses. IMPRESSION: No acute findings. Otherwise as described. ACT 112: Negative or not required by law. The above report was generated using voice recognition software. It may contain grammatical, syntax or spelling errors. Electronically signed by: Jone Kwon M.D. 01/05/2025 3:41 PM Supervising Physician Co-Signing Physician Notes I have seen and discussed the case with the collaborating advanced practitioner. I agree with the above H&P. I have reviewed and confirmed the patients medical history, the findings on physical examination, and the patients diagnosis and treatment plan with Teresa SALOMON and agree with the information documented. Patient reports ongoing weakness and falls. Patient with limited engagement in discussion and exam. Suspect underlying depression contributing to a near failure to thrive scenario. MRI ordered. Plan for behavioral health consult. Reports no active plan at this time for suicide. I spent a total of 15 minutes coordinating, documenting, and providing care for this patient excluding time spent in the performance of separately billed services. All of the aforementioned completed outside of collaborating with the assigned advanced practitioner for a full treatment plan. I have reviewed the advanced practitioner's documentation, and I agree with, and take responsibility for the plan of care
--- NOTE | 2025-01-05 19:49 | Emergency Department Note ---
Impression & Plan Weakness, Fall ED Provider Note NAME: JAYESH VELÁSQUEZ AGE: 59 SEX: M : 1965 ARRIVES VIA: Walk-In INFORMANT: Patient, ED PROVIDER(S): Roxie Arguello MD CHIEF COMPLAINT: Weakness, fall HPI: This is a 59-year-old male presenting for weakness. Patient notes that the past 1 month he has had left sided weakness. He states that he was recently at a psychiatric facility. Of helping him get around but patient did drive home and notes that he had fallen multiple times. He fell to the ground was unable to get up. His brother came to help however still able to get help so they called 911. Patient was then placed back to bed. Patient says entire left side is weak from a previous stroke and this is worsened over the past 1 month. He notes no new chest pain, subjective fever, chills, diarrhea, abdominal pain. ROS: See above HPI for pertinent positives & negatives. A total of 10 systems reviewed and were otherwise negative. PAST MEDICAL HISTORY: See Below PAST SURGICAL HISTORY: See Below FAMILY HISTORY: See Below SOCIAL HISTORY: See Below HOME MEDICATIONS: See Below ALLERGIES: See Below VITALS: See Below PHYSICAL EXAMINATION: General: resting comfortably in no acute distress Head: Normocephalic and atraumatic Eyes: Normal inspection, extraocular muscles intact Ear, nose, throat: Normal external exam Neck: Normal range of motion Respiratory: lungs clear to auscultation bilaterally Cardiovascular: Regular rate/rhythm, no murmur GI: soft, nontender, no guarding or rebound Extremities: nontender, moves all extremities Neuro: The patient awake and alert, appropriately conversive, no focal deficits, symmetric faces strength 4/5 bilateral upper and lower extremities Skin: Warm, dry, and intact MEDICAL DECISION MAKING: This is a 59-year-old male present for weakness. Patient had over 1 month of left-sided weakness reportedly. He notes no new symptoms recently just that he has been following. -Will do screening head CT and blood work -Bloodwork is reviewed showing no significant leukocytosis, anemia, electrolyte or creatinine abnormality troponin mildly elevated 29, similar to previous values. -CT head reveals no acute cranial findings. This time patient has minimal neurologic deficits but is falling and will be needed further workup including MRI and placement/SNF. Patient is agreeable to this plan about admission. Differential diagnosis: Fall, stroke, deconditioning Independent History obtained from: Brother Diagnostics interpreted by me: ECG: ECG independently interpreted by me with normal sinus rhythm, rate of 95, normal axis, first-degree AV block, normal QRS, normal QTc, no ST segment elevations consistent with STEMI criteria Cardiac Monitoring: An order was placed for continuous cardiac monitoring. The monitor shows a rate of 89 with sinus rhythm. Past Med/Surg History Problem List (Updated 01/05/25 @ 19:55 by Roxie Arguello MD) Fall (Acute) Weakness (Acute) COVID-19 virus infection Dyspnea on minimal exertion (Acute) CHF (congestive heart failure) (Acute) COVID-19 (Acute) Acute hypoxemic respiratory failure Non-ST elevation CA (NSTEMI) (Acute) Phlegmonous cellulitis Hyponatremia (Acute) History of CVA (cerebrovascular accident) Morbid obesity DM2 (diabetes mellitus, type 2) Cellulitis (Acute) Depression HTN (hypertension) CHF (congestive heart failure) Morbid obesity with BMI of 50.0-59.9, adult Pancreatitis Cholangitis concurrent with and due to calculus of gallbladder Hyperlipidemia, unspecified Hypothyroidism, unspecified Obstructive sleep apnea (adult) (pediatric) Unspecified cerebral artery occlusion with cerebral infarction Medical History Hypertension Diabetes Social History Smoking Status: Never smoker Hx Alcohol Use: Yes Alcohol type: beer Hx Substance Use: No Preferred Language: Zambian Communication Ability: Effective Director Of Casework Required: No Beliefs That Will Affect Care: None Current Living Situation: Alone Feels Safe at Home: Yes Gender Identity: Male Assistive Devices: Cane Allergies Allergies Allergy/AdvReac Type Severity Reaction Status Date / Time doxycycline Allergy Intermediate HIVES Verified 01/05/25 16:50 Penicillins Allergy Intermediate RASH Verified 01/05/25 16:50 Macrolide Antibiotics Allergy Unknown UNKNOWN Verified 01/05/25 16:50 morphine AdvReac Intermediate GI UPSET Verified 01/05/25 16:50 Home Meds Home Medications Medication Instructions Recorded Confirmed cyanocobalamin (vitamin B-12) 1,000 mcg PO QAM 01/05/25 01/05/25 1,000 mcg tablet (Vitamin B-12) insulin detemir U-100 100 unit/mL 20 unit subcut QAM 01/05/25 01/05/25 (3 mL) subcutaneous pen levothyroxine 175 mcg tablet 175 mcg PO DAILYBB 01/05/25 01/05/25 nitroglycerin 0.4 mg sublingual 0.4 mg sublingual DIRECTED PRN 01/05/25 01/05/25 tablet (Nitrostat) Chest Pain omeprazole 20 mg tablet,delayed 20 mg PO QAM 01/05/25 01/05/25 release sennosides 8.6 mg-docusate sodium 2 tab-cap PO QAM 01/05/25 01/05/25 50 mg tablet (Senna Plus) sertraline 50 mg tablet 150 mg PO QAM 01/05/25 01/05/25 Results & Data (ED) Vital Signs Vital Signs - 24 hr 01/05/25 13:23 01/05/25 14:12 01/05/25 15:30 Temperature 36.6 C Temperature Source Oral Pulse Rate 97 H 95 H Pulse Rate [Apical] 89 Pulse Rhythm Regular Pulse Rhythm [Apical] Regular Pulse Strength [Apical] Normal Respiratory Rate 19 18 19 Respiratory Effort / Characteristics Non-Labored Spontaneous Non-Labored Spontaneous Respiratory Depth Normal Normal Respiratory Pattern Regular Regular Blood Pressure 141/83 H Blood Pressure [Left Arm] 156/95 H Blood Pressure Mean 102 Blood Pressure Mean [Left Arm] 115 Blood Pressure Position [Left Arm] Lying Pulse Oximetry 99 98 96 Oxygen Delivery Method Room Air Room Air Room Air Sepsis Recent Fever Within 48 Hours No Sepsis New/Unexplained Change in Mental Status N/A Sepsis Action Taken by Nursing No Action Required 01/05/25 16:13 01/05/25 17:00 01/05/25 19:00 Temperature Temperature Source Pulse Rate 93 H Pulse Rate [Apical] 85 89 Pulse Rhythm Pulse Rhythm [Apical] Regular Regular Pulse Strength [Apical] Normal Normal Respiratory Rate 17 16 Respiratory Effort / Characteristics Non-Labored Spontaneous Non-Labored Spontaneous Respiratory Depth Normal Normal Respiratory Pattern Regular Regular Blood Pressure Blood Pressure [Left Arm] 131/95 142/97 H Blood Pressure Mean Blood Pressure Mean [Left Arm] 107 112 Blood Pressure Position [Left Arm] Lying Lying Pulse Oximetry 100 96 Oxygen Delivery Method Room Air Room Air Sepsis Recent Fever Within 48 Hours Sepsis New/Unexplained Change in Mental Status Sepsis Action Taken by Nursing Laboratory Data 01/05/25 14:55 01/05/25 14:55 Lab Results 01/05/25 Range/Units 14:55 WBC 7.28 (4.8-10.8) K/ul RBC 5.03 (4.70-6.10) M/uL Hgb 13.6 L (14.0-18.0) g/dl Hct 40.4 L (42.0-52.0) % MCV 80.3 (80.0-100.0) fL MCH 27.0 (25.0-34.0) pg MCHC 33.7 (32.0-36.0) g/dL RDW Std Deviation 41.9 (36.4-46.3) fL RDW Coeff of Oziel 14.5 (11.5-14.5) % Plt Count 225 (130-400) K/uL MPV 8.9 L (9.4-12.4) fL Immature Gran % (Auto) 0.3 % Neut % (Auto) 72.4 % Lymph % (Auto) 15.0 % Schuyler % (Auto) 7.0 % Eos % (Auto) 4.3 % Baso % (Auto) 1.0 % Neut # (Auto) 5.28 (1.40-6.50) K/uL Lymph # (Auto) 1.09 L (1.20-3.40) K/uL Schuyler # (Auto) 0.51 (0.11-0.59) K/uL Eos # (Auto) 0.31 (0.00-0.50) K/uL Baso # (Auto) 0.07 (0.00-0.20) K/uL Immature Gran # (Auto) 0.02 (0.01-0.20) K/uL PT 11.4 (9.0-12.0) Seconds INR 1.1 (0.9-1.1) APTT 30 (21-31) Seconds PTT Ratio 1.1 Sodium 137 (136-145) mmol/L Potassium 4.2 (3.5-5.1) mmol/L Chloride 101 (98-107) mmol/L Carbon Dioxide 28 (21-32) mmol/L Anion Gap 8 (3-11) BUN 12 (6-23) mg/dl Creatinine 1.06 (0.6-1.4) mg/dl Est Cr Clr Drug Dosing Not Reportable eGFR 81.86 BUN/Creatinine Ratio 11.3 (10-20) Glucose 106 H (70-99(Fasting)) mg/dl Calcium 9.6 (8.6-10.3) mg/dl Magnesium 1.8 (1.7-2.4) mg/dl Total Bilirubin 0.7 (0.2-1.0) mg/dl AST 31 (13-39) U/L ALT 39 (7-52) U/L Alkaline Phosphatase 79 (34-104) U/L Troponin I High Sens 29.2 H (0-20) pg/ml Total Protein 7.2 (6.0-8.3) gm/dl Albumin 4.1 (3.4-5.0) gm/dl Globulin 3.1 (2.5-4.0) gm/dl Albumin/Globulin Ratio 1.3 (0.9-2) Lipase 15 (11-82) U/L TSH 0.455 (0.300-4.500) uIu/ml Imaging Data Radiologist's Impression: Chest X-Ray 01/05/25 13:40 XR chest 1V portable CLINICAL HISTORY: weakness COMPARISON STUDY: 12/10/2024 FINDINGS: Stable mild cardiomegaly without pulmonary vascular congestion. No effusion, consolidation, or pneumothorax. IMPRESSION: No acute findings. ACT 112: Negative or not required by law. Electronically signed by: Jone Kwon M.D. 01/05/2025 2:[address] 01/05/25 13:41 CT head/brain wo con CLINICAL HISTORY: weakness. TECHNIQUE: Multiple axial CT images of the head were obtained without contrast. A dose lowering technique was utilized adhering to the principles of ALARA. CT DOSE: 1100.35 mGy.cm COMPARISON: 12/10/2024 FINDINGS: No intracranial hemorrhage seen. No mass effect, midline shift, or hydrocephalus. There is stable severe patchy periventricular hypodensity which is nonspecific but usually represents chronic small vessel ischemic change. There is a stable small old lacunar infarction in the right basal ganglia. No skull fracture seen. There is mild mucosal thickening in the maxillary and ethmoid sinuses. IMPRESSION: No acute findings. Otherwise as described. ACT 112: Negative or not required by law. The above report was generated using voice recognition software. It may contain grammatical, syntax or spelling errors. Electronically signed by: Jone Kwon M.D. 01/05/2025 3:41 PM Discharge Plan Visit Data Chief Complaint: Leg Weakness, Bilateral Stated Complaint: WEAKNESS IN KNEES, KEEPS FALLING ED Provider: Roxie Arguello Discharge Problem: Weakness, Fall Forms Stand Alone Forms: My [facility] Prescriptions Prescriptions: No Action levothyroxine 175 mcg Tablet 175 mcg PO DAILYBB sennosides-docusate sodium [Senna Plus] 8.6-50 mg Tablet 2 tab-cap PO QAM cyanocobalamin (vitamin B-12) [Vitamin B-12] 1,000 mcg Tablet 1,000 mcg PO QAM nitroglycerin [Nitrostat] 0.4 mg Tablet, Sublingual 0.4 mg sublingual DIRECTED PRN (Reason: Chest Pain) sertraline 50 mg Tablet 150 mg PO QAM omeprazole 20 mg Tablet,Delayed Release (Dr/Ec) 20 mg PO QAM Levemir FlexTouch U100 Insulin 100 unit/mL (3 mL) Insulin Pen 20 unit SUBCUT QAM Referrals Referrals: Jennifer Jimenez DO [Primary Care Provider] -
[2025-01-05] MEDS ORDERED: GLUCAGON FOR INJ 1 MG VIAL SQ PRN (22:31)
[2025-01-05] MEDS ORDERED: ACETAMINOPHEN 325 MG TAB PO PRN (22:31)
[2025-01-05] MEDS ORDERED: GLUCOSE 40% GEL 15 GM TUBE PO PRN (22:31)
[2025-01-05] MEDS ORDERED: POLYETHYLENE (MIRALAX) 17 GM PACK PO PRN (22:31)
[2025-01-05] MEDS ORDERED: ONDANSETRON INJ 2 MG/ML 2 ML VIAL IV PRN (22:31)
[2025-01-05] MEDS ORDERED: DEXTROSE 50% 50 ML SYRINGE IV PRN (22:31)
[2025-01-05] MEDS ORDERED: PHARMACIST DISCHARGE MED REC CONSULT PRN (22:31)
[2025-01-05] MEDS ORDERED: GLUCOSE 10 TAB/TUBE PO PRN (22:31)
[2025-01-05] MEDS ORDERED: CARBOHYDRATES FOR HYPOGLYCEMIA PO PRN (22:31)
[2025-01-05] MEDS: INSULIN ASPART PER UNIT CHARGE SC SCH (23:20)
[2025-01-06] MEDS: ENOXAPARIN INJ 40 MG/0.4 ML SYR SQ SCH (00:09)
[2025-01-06] MEDS: LEVOTHYROXINE SODIUM 175 MCG TABLET PO SCH (05:30)
[2025-01-06] MEDS: INSULIN ASPART PER UNIT CHARGE SC SCH ×2 (06:25→18:00)
[2025-01-06] MEDS ORDERED: Nursing to Pharmacy Communication SCH (06:30)
[2025-01-06 07:45] LABS: Hemoglobin 13.2 g/dl (14.0-18.0); Mean Corpuscular Hemoglobin 27.2 pg (25.0-34.0); Mean Corpuscular Hgb Conc 33.8 g/dL (32.0-36.0); Mean Corpuscular Volume 80.2 fL (80.0-100.0); Mean Platelet Volume 9.4 fL (9.4-12.4); Platelet Count 206 K/uL (130-400); RDW Coefficient of Variation 14.4 % (11.5-14.5); Red Blood Count 4.86 M/uL (4.70-6.10); White Blood Count 6.82 K/ul (4.8-10.8)
--- NOTE | 2025-01-06 07:46 | Hospitalist Progress Note ---
Date of Service January 06, 2025 Assessment & Plan (1) Weakness: (2) Fall: (3) Ambulatory dysfunction: (4) History of CVA (cerebrovascular accident): Plan: Patient is 59 year old male with PMH depression, HTN, DM II, CVA with residual left sided weakness presented to ER with complaint of bilateral leg weakness x 1 month and recurrent falls being admitted for stroke eval and recent SI. CT Head: no acute intracranial changes Troponins flat at 29 and 32. History of chronically elevated troponins in past. Denies chest pain, shortness of breath. EKG sinus rhythm first-degree AV block, nonspecific T wave changes per my interpretation Remaining labs fairly unremarkable R/O acute/subacute CVA - Brain MRI 01/06 with extensive white matter abnormalities, likely due to chronic small vessel ischemic disease, no sign of acute infarction - Carotid dopplers with atherosclerosis with less than 50% bilateral proximal internal carotid stenosis (mild, per criteria) - Echo with bubble study - systolic function mildly reduced with EF 40 to 45%, large sized apical, inferior and posterior wall motion abnormality with hypokinesis of the segments Fall precautions Lipids within range, hgb a1c 7.2 with known DM II as below PT/OT evaluating, restarted on aspirin, rosuvastatin daily (5) Knee pain: Plan: Reports left knee pain x months R and L knee XR reviewed- mild osteoarthritic changes of the tibio-femoral and patello-femoral articulations, mild lateral patellar subluxation OT recommending rehab, PT to see (6) Depression: Plan: Recent SI and suicide attempt with aspirin overdose Discharged from [facility] on 01/04/25 Reports continued depression and "wishes would " but denies any current plan or recurrent attempt Will continue sertraline Behavioral health consult - recommend starting Abilify 5mg, continue 1:1 sitter for now however no indication for inpatient psych at this time (7) DM2 (diabetes mellitus, type 2): Plan: Insulin-dependent A1c: 10.7 in 08/05 -> improved to 7.2 as of 01/06 Continue home insulin NovoLog sliding scale per protocol A1c in a.m. (8) Hypertension: Plan: BPs elevated in ER 156/95 Re-start lisinopril 5mg (was on in the past) DVT Ppx: SQ lovenox Code status: FULL PCP: Barbara Dispo: admitted to med tele Patient seen in collaboration with Dr. Glez. Please see addendum. I spent a total of 50 minutes coordinating, documenting, and providing care for this patient excluding time spent in the performance of separately billed services or time spent by another provider/QHP. Admission and Anticipated Discharge Date Admission Date: January 05, 2025 Supervising Physician Co-Signing Physician Notes Pt seen and examined by me, care coordinated with SALUD Winn, pls refer to her note above for further detail. Pt seen sitting in the chair, in NAD, awake and alert. cooperative, answers appropriately. Pt able to move both LEs, noted some L-sided weakness on exam. Lungs CTAB, heart sounds regular, abdomen soft, obese. MRI brain ordered- no acute cva. Discussed w/ psychiatry - plan to add abilify. Per OT, recommend rehab. Will further discuss w/ CM. MD Newton Subjective Patient seen and evaluated in 281-1. Sitting in bedside chair, comfortable and present. Offering no complaints. Mood improved since yesterday. Sitter at bedside as well. Denies any pain. Has chronic left-sided weakness residual from previous stroke. Denies any difficulty speaking or swallowing. No new focal weakness. No chest pain, shortness of breath or abdominal pain. Review of Systems Review of Systems: At least ten systems reviewed and negative except as noted in the HPI. Physical Exam Physical Exam: Gen: WD/WN, NAD, sitting in bedside chair, A&Ox3, 1:1 at bedside HEENT: Normocephalic, atraumatic, conjunctivae moist, sclerae anicteric, mucous membranes moist Lung: Clear to Auscultation bilaterally Heart: Regular rate, regular rhythm Abdomen: Soft, NT, ND +BS x 4 Extremities: + L knee TTP with ecchymosis noted, ROM knees intact bilaterally. +LUE and LLE 4/5 strength (chronic), RUE and RLE 5/5 strength Neuro: A&O x 3, no focal deficits noted, flat affect, slow speech but clear, answers questions appropriately Skin: Warm, no rash Results & Data Results & Data Vital Signs (Past 12 Hours) Vital Signs Temp Pulse Pulse Pulse Resp BP BP 01/06/25 07:34 100 H 01/06/25 03:30 36.9 C 92 H 18 153/90 H 01/05/25 22:29 93 H 01/05/25 22:25 36.7 C 92 H 20 160/104 H 01/05/25 21:30 99 H 18 141/92 H 01/05/25 20:09 87 Pulse Ox O2 Del Method 01/06/25 07:34 01/06/25 03:30 96 Room Air 01/05/25 22:29 01/05/25 22:25 93 Room Air 01/05/25 21:30 95 Room Air 01/05/25 20:09 Laboratory Results Short CBC 01/06/25 Range/Units 06:49 WBC 6.82 (4.8-10.8) K/ul Hgb 13.2 L (14.0-18.0) g/dl Hct 39.0 L (42.0-52.0) % Plt Count 206 (130-400) K/uL BMP 01/06/25 06:49 Sodium 136 Potassium 3.8 Chloride 104 Carbon Dioxide 25 BUN 13 Creatinine 0.99 Glucose 129 H Calcium 9.1 Diagnostic Findings Chest X-Ray 01/05/25 13:40 XR chest 1V portable CLINICAL HISTORY: weakness COMPARISON STUDY: 12/10/2024 FINDINGS: Stable mild cardiomegaly without pulmonary vascular congestion. No effusion, consolidation, or pneumothorax. IMPRESSION: No acute findings. ACT 112: Negative or not required by law. Electronically signed by: Jone Kwon M.D. 01/05/2025 2:[address] 01/05/25 13:41 CT head/brain wo con CLINICAL HISTORY: weakness. TECHNIQUE: Multiple axial CT images of the head were obtained without contrast. A dose lowering technique was utilized adhering to the principles of ALARA. CT DOSE: 1100.35 mGy.cm COMPARISON: 12/10/2024 FINDINGS: No intracranial hemorrhage seen. No mass effect, midline shift, or hydrocephalus. There is stable severe patchy periventricular hypodensity which is nonspecific but usually represents chronic small vessel ischemic change. There is a stable small old lacunar infarction in the right basal ganglia. No skull fracture seen. There is mild mucosal thickening in the maxillary and ethmoid sinuses. IMPRESSION: No acute findings. Otherwise as described. ACT 112: Negative or not required by law. The above report was generated using voice recognition software. It may contain grammatical, syntax or spelling errors. Electronically signed by: Jone Kwon M.D. 01/05/2025 3:41 PM Knee X-Ray 01/05/25 18:02 EXAM: XR knee LT 3V CLINICAL HISTORY: knee pain. TECHNIQUE: X-ray images of the left knee were obtained in anteroposterior (AP), lateral, and sunrise/skyline (patellar) projections. COMPARISON: No prior studies available for comparison. FINDINGS: Bone Structure: Bone structure is normal and well-aligned. No evidence of acute fractures or dislocations. No osseous lesions or abnormalities identified. Joint Spaces: Mild osteoarthritic changes of the tibio-femoral joint, evident by relative narrowing of the medial aspect of the joint and spiking of the tibial spine as well as tiny osteophytic lipping at the articular surfaces. Mild osteoarthritic changes of the patello-femoral joint, evident by narrowing of the joint space and marginal osteophytic lipping at the articular surfaces. Patella: Mild lateral patellar subluxation. Soft Tissues: Suspected faint calcifications at the lateral meniscus. IMPRESSION: 1. Mild osteoarthritic changes of the tibio-femoral and patello-femoral articulations. 2. Mild lateral patellar subluxation. 3. Suspected calcification at lateral meniscus. Disclaimer: A subtle bone abnormality or fracture may not be readily apparent on X-rays, thus clinical correlation and further imaging including follow-up CT, MRI, or follow-up X-rays are advised as needed. Electronically signed by Robson Benoit 01-06-2025 09:10 AM Knee X-Ray 01/05/25 18:02 EXAM: XR knee RT 3V CLINICAL HISTORY: knee pain TECHNIQUE: X-ray images of the right knee were obtained in anteroposterior (AP), lateral, and sunrise/skyline (patellar) projections. COMPARISON: No prior studies available for comparison. FINDINGS: Bone Structure: Bone structure is normal and well-aligned. No evidence of acute fractures or dislocations. No osseous lesions or abnormalities identified. Joint Spaces: Mild osteoarthritic changes of the tibio-femoral joint, evident by relative narrowing of the medial aspect of the joint and spiking of the tibial spine. Mild osteoarthritic changes of the patello-femoral joint, evident by narrowing of the joint space and marginal osteophytic lipping at the articular surfaces. Patella: Mild lateral patellar subluxation. Soft Tissues: Periarticular soft tissues appear normal and unremarkable. No soft tissue swelling, calcifications, or foreign bodies noted. IMPRESSION: 1. Mild osteoarthritic changes of the tibio-femoral and patello-femoral articulations. 2. Mild lateral patellar subluxation. Disclaimer: A subtle bone abnormality or fracture may not be readily apparent on X-rays, thus clinical correlation and further imaging including follow-up CT, MRI, or follow-up X-rays are advised as needed. Electronically signed by Robson Benoit 01-06-2025 08:57 AM Carotid Doppler Study 01/06/25 00:00 EXAM: US Duplex Bilateral Extracranial Arteries INDICATION: Evaluate for stenosis. TECHNIQUE: Real-time duplex ultrasound scan of the extracranial arteries integrating B-mode two-dimensional vascular structure, Doppler spectral analysis and color flow Doppler imaging. COMPARISON: No relevant prior studies available. FINDINGS: Right common carotid artery: Diffuse intimal thickening. Peak systolic velocity 59 cm/s. No occlusion or segmental stenosis on color flow and spectral Doppler imaging. Right internal carotid artery: Moderate calcific plaque. Peak systolic velocity 86 cm/s. No occlusion or segmental stenosis on color flow and spectral Doppler imaging. Right external carotid artery: No abnormality noted. No occlusion or segmental stenosis on color flow and spectral Doppler imaging. Right vertebral artery: No abnormality noted. Antegrade flow. Right ICA/CCA ratio: 1.5. Within normal limits. Left common carotid artery: Diffuse intimal thickening. Peak systolic velocity 70 cm/s. No occlusion or segmental stenosis on color flow and spectral Doppler imaging. Left internal carotid artery: Mild mixed plaque. Peak systolic velocity 56 cm/s. No occlusion or segmental stenosis on color flow and spectral Doppler imaging. Left external carotid artery: No abnormality noted. No occlusion or segmental stenosis on color flow and spectral Doppler imaging. Left vertebral artery: No abnormality noted. Antegrade flow. Left ICA/CCA ratio: 0.8. Within normal limits. Lymph nodes: No abnormality noted. No lymphadenopathy. CAROTID STENOSIS REFERENCE USING IAC CRITERIA: Mild - <50% stenosis. ICA PSV is less than 180 cm/s and plaque or intimal thickening is visible. Moderate - 50-69% stenosis. ICA PSV is 180 to 230 cm/s and plaque is visible. Severe - 70-94% stenosis. ICA PSV is more than 230 cm/s and visible plaque with lumen narrowing is seen. Near occlusion - 95-99% stenosis. ICA PSV is variable and significant plaque with luminal narrowing is seen. Occluded - 100% stenosis. No flow identified. IMPRESSION: Atherosclerosis with less than 50% bilateral proximal internal carotid stenosis. ACT 112: N/A Electronically signed by Chetna Peñaloza 01-06-2025 4:02 PM Videofluoroscopic Swallow 01/06/25 11:30 FL video swallow CLINICAL HISTORY: r/o aspiration. TECHNIQUE: Video fluoroscopic evaluation of swallowing was performed in the AP and lateral projections by the speech pathology staff. The patient is fed nectar-thick and thin liquid barium, a barium coated wafer, and barium pudding. FLUOROSCOPY TIME: 56 seconds. COMPARISON: None FINDINGS: There was trace aspiration with thin liquid. IMPRESSION: Trace aspiration. ACT 112: Negative or not required by law. Electronically signed by: Jone Kwon M.D. 01/06/2025 1:30 PM Brain MRI 01/06/25 13:24 Clinical History: Left-sided weakness Technique: Multiple T1 and T2-weighted magnetic resonance images were obtained of the brain without gadolinium contrast Findings: There is no sign of acute infarction with normal-appearing diffusion weighted images. There is mild cerebral atrophy, within expected limits for the patient's age. There are focal and confluent areas of increased T2 signal intensity within the periventricular white matter of the cerebral hemispheres bilaterally. This is most likely due to chronic small vessel ischemic disease. There is a small infarct of the right cerebellar hemisphere. There is also an apparent or infarct of the right leg from nucleus and right internal capsule No definite mass lesion is seen on this noncontrast study. There is no intracranial hemorrhage or other fluid collection. No midline shift or other form of herniation is seen. There is no hydrocephalus. Normal flow-voids are seen within the arteries of the [id number]. There is mucosal thickening in the maxillary sinuses. The mastoid air cells appear clear. Impression: 1. Extensive white matter abnormalities, likely due to chronic small vessel ischemic disease 2. No sign of acute infarction 3. Small old infarcts 4. Chronic sinusitis ACT 112: Positive. There are findings on this exam that require communication between the performing entity and the patient following Patient Test Result Information Act ([place] ACT 112) guidelines. Electronically signed by Lawrence Jung 01-06-2025 4:50 PM
[2025-01-06 08:05] LABS: BUN Creatinine Ratio 13.1 (10-20); Calcium 9.1 mg/dl (8.6-10.3); Chol HDL Ratio 6.3 (0-5); Creatinine Clr Calc Pharmacy 88.4 ml/min; Magnesium 1.7 mg/dl (1.7-2.4); Potassium 3.8 mmol/L (3.5-5.1)
--- NOTE | 2025-01-06 08:57 | XRay Report ---
EXAM: XR knee RT 3V CLINICAL HISTORY: knee pain TECHNIQUE: X-ray images of the right knee were obtained in anteroposterior (AP), lateral, and sunrise/skyline (patellar) projections. COMPARISON: No prior studies available for comparison. FINDINGS: Bone Structure: Bone structure is normal and well-aligned. No evidence of acute fractures or dislocations. No osseous lesions or abnormalities identified. Joint Spaces: Mild osteoarthritic changes of the tibio-femoral joint, evident by relative narrowing of the medial aspect of the joint and spiking of the tibial spine. Mild osteoarthritic changes of the patello-femoral joint, evident by narrowing of the joint space and marginal osteophytic lipping at the articular surfaces. Patella: Mild lateral patellar subluxation. Soft Tissues: Periarticular soft tissues appear normal and unremarkable. No soft tissue swelling, calcifications, or foreign bodies noted. IMPRESSION: 1. Mild osteoarthritic changes of the tibio-femoral and patello-femoral articulations. 2. Mild lateral patellar subluxation. Disclaimer: A subtle bone abnormality or fracture may not be readily apparent on X-rays, thus clinical correlation and further imaging including follow-up CT, MRI, or follow-up X-rays are advised as needed. Electronically signed by Robson Benoit 01-06-2025 08:57 AM
--- NOTE | 2025-01-06 09:11 | XRay Report ---
EXAM: XR knee LT 3V CLINICAL HISTORY: knee pain. TECHNIQUE: X-ray images of the left knee were obtained in anteroposterior (AP), lateral, and sunrise/skyline (patellar) projections. COMPARISON: No prior studies available for comparison. FINDINGS: Bone Structure: Bone structure is normal and well-aligned. No evidence of acute fractures or dislocations. No osseous lesions or abnormalities identified. Joint Spaces: Mild osteoarthritic changes of the tibio-femoral joint, evident by relative narrowing of the medial aspect of the joint and spiking of the tibial spine as well as tiny osteophytic lipping at the articular surfaces. Mild osteoarthritic changes of the patello-femoral joint, evident by narrowing of the joint space and marginal osteophytic lipping at the articular surfaces. Patella: Mild lateral patellar subluxation. Soft Tissues: Suspected faint calcifications at the lateral meniscus. IMPRESSION: 1. Mild osteoarthritic changes of the tibio-femoral and patello-femoral articulations. 2. Mild lateral patellar subluxation. 3. Suspected calcification at lateral meniscus. Disclaimer: A subtle bone abnormality or fracture may not be readily apparent on X-rays, thus clinical correlation and further imaging including follow-up CT, MRI, or follow-up X-rays are advised as needed. Electronically signed by Robson Benoit 01-06-2025 09:10 AM
[2025-01-06 09:27] LABS: Estimated Average Glucose 160 mg/dl; Hemoglobin A1C 7.2 % (4.5-5.6)
[2025-01-06] MEDS: PANTOprazole 40 MG TAB PO SCH (11:53)
[2025-01-06] MEDS: SERTRALINE HCL 50 MG TABLET PO SCH (11:53)
[2025-01-06] MEDS: CYANOCOBALAMIN (B-12) 500 MCG TABLET PO SCH (11:53)
[2025-01-06] MEDS: ASPIRIN 81 MG ECTAB PO SCH (11:53)
[2025-01-06] MEDS: ROSUVASTATIN CALCIUM 10 MG TAB PO SCH (11:54)
[2025-01-06] MEDS: LANTUS PER UNIT CHARGE SQ SCH (11:59)
--- NOTE | 2025-01-06 12:21 | Electrocardiogram Report ---
Test Reason : Blood Pressure : */* mmHG Vent. Rate : 98 BPM Atrial Rate : 98 BPM P-R Int : 212 ms QRS Dur : 94 ms QT Int : 364 ms P-R-T Axes : 54 18 115 degrees QTcB Int : 464 ms Sinus rhythm with 1st degree A-V block Nonspecific T wave abnormality Prolonged QT Abnormal ECG When compared with ECG of 05-Jan-2025 14:07, No significant change was found Confirmed by Michael Finney ([id number]) on 01/06/2025 12:20:56 PM Referred By: REFERRED SELF Confirmed By: Michael Finney
--- NOTE | 2025-01-06 13:32 | Fluoroscopy Report ---
FL video swallow CLINICAL HISTORY: r/o aspiration. TECHNIQUE: Video fluoroscopic evaluation of swallowing was performed in the AP and lateral projection s by the speech pathology staff. The patient is fed nectar-thick and thin liquid barium, a barium coa shazia wafer, and barium pudding. FLUOROSCOPY TIME: 56 seconds. COMPARISON: None FINDINGS: There was trace aspiration with thin liquid. IMPRESSION: Trace aspiration. ACT 112: Negative or not required by law. Electronically signed by: Jone Kwon M.D. 01/06/2025 1:30 PM
--- NOTE | 2025-01-06 15:19 | Psychiatric Consultation ---
Date of Consultation January 06, 2025 Impression / Recommendations Impression Ten Corbin is a 59-year-old white unemployed male who lives alone history of CVA, hypothyroidism, B12 deficiency, hyperlipidemia, GERD, insulin dependence who presents with weakness and recent fall. Psychiatry consulted for depression and safety evaluation. Concerned he remains suicidal and cannot contract for safety. Poor reality testing and is unconcerned how his might impact others. Reports not w anting to live due to lack of community (lost ) and livelihood (lost job). He is future oriented for physical rehab. Information from collateral is conflicting and will clarify with patient. Reported h/o depression since his 30s. Recent recurrent inpatient psychiatric hospitalizations last discharged this week. No current behavioral problems. Recommending to start Abilify for SSRI augmentation and to address racing thoughts. Overall, I spent a total of 80 minutes with this case including review of chart records, nursing report, review of lab work, direct evaluation of the patient at bedside, counseling the patient, discussion of the patient with the hospitalist provider, discussion with the psychiatric liaison during clinical rounds, and documentation in the electronic health record. (1) Depression with suicidal ideation: (2) Weakness: (3) Fall: (4) History of CVA (cerebrovascular accident): Plan Recommend to continue home sertraline start Abilify 5mg daily continue 1:1 sitter no indication for inpatient psychiatry at this time Psych History Identifying Data Ten Corbin is a 59-year-old white unemployed male who lives alone history of CVA, hypothyroidism, B12 deficiency, hyperlipidemia, GERD, insulin dependence who presents with weakness and recent fall. Psychiatry consulted for depression and safety evaluation. Chief Complaint Depression History of Present Illness Reports recent hospitalization in [facility] for 1 month where he was started on Zoloft. Has not noticed it makes a difference. Reports past stroke in 2007 which resulted in left-sided weakness. Additionally in 2007. Patient reports having depression since his 30s and has been persistent without specific episodes. Endorses fair sleep and appetite. Reports having lack of interest in activities, decreased energy, increased distractibility, increased racing thoughts worrying about "everything". Denies having crying spells. Reports future plan for physical rehab. When discussing his recent suicide attempt he reports taking a quarter bottle of 325 mg aspirin and there were 30 in the bottle. He reports intention to end his life at the time and feels he does not have much to live for. Reports a lack of purpose and companionship. Reports recently losing his job prior to the hospitalization. When discussing how his would impact his family he appears ambivalent. He denies past suicide attempts. Reports living by himself. Has a brother who he relies on for support. Collateral from brother: In addition to the recent hospitalization at [facility] patient signed himself in August 2024. 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 Brother appears supportive. Chart review: Patient had suicide attempt in November 2024 with overdose on aspirin. Recent discharge from [facility] on 01/04/2025. Patient does not have access to guns. Allergies Allergy/AdvReac Type Severity Reaction Status Date / Time doxycycline Allergy Intermediate HIVES Verified 01/05/25 16:50 Penicillins Allergy Intermediate RASH Verified 01/05/25 16:50 Macrolide Antibiotics Allergy Unknown UNKNOWN Verified 01/05/25 16:50 morphine AdvReac Intermediate GI UPSET Verified 01/05/25 16:50 Home Medications Medication Instructions Recorded Confirmed Type cyanocobalamin (vitamin B-12) 1,000 mcg PO QAM 01/05/25 01/05/25 History 1,000 mcg tablet (Vitamin B-12) insulin detemir U-100 100 unit/mL 20 unit subcut QAM 01/05/25 01/05/25 History (3 mL) subcutaneous pen levothyroxine 175 mcg tablet 175 mcg PO DAILYBB 01/05/25 01/05/25 History nitroglycerin 0.4 mg sublingual 0.4 mg sublingual DIRECTED PRN 01/05/25 01/05/25 History tablet (Nitrostat) Chest Pain omeprazole 20 mg tablet,delayed 20 mg PO QAM 01/05/25 01/05/25 History release sennosides 8.6 mg-docusate sodium 2 tab-cap PO QAM 01/05/25 01/05/25 History 50 mg tablet (Senna Plus) sertraline 50 mg tablet 150 mg PO QAM 01/05/25 01/05/25 History Patient History Medical History Hypertension Diabetes Social History Smoking Status: Never smoker Hx Alcohol Use: No Hx Substance Use: No Preferred Language: Maltese Communication Ability: Effective Patient Financial Rep Required: No Beliefs That Will Affect Care: None Current Living Situation: Alone Current Living Situation Comment: home alone Other Information That Helps Us Care for You: No Feels Safe at Home: Yes Safety Concerns: Feels Safe At This Time Gender Identity: Male Assistive Devices: Glasses Physical Exam Mental Examination: Appearance: Disheveled Eye Contact: Maintains Eye Contact Motor Behavior: Unremarkable Speech: Soft Mood: Calm Affect: Constricted Thought Process: Poverty of Content Thought Content: Racing Hallucinations: None Insight: Poor Judgement: Poor Vital Signs (Past 24 Hours): Last Vital Signs Temp 36.8 C 01/06/25 12:09 Pulse 97 H 01/06/25 13:59 Resp 18 01/06/25 12:09 BP 150/94 H 01/06/25 12:09 Pulse Ox 96 01/06/25 12:09 O2 Del Method Room Air 01/06/25 12:09 Results & Data (PSY) Medications Administered Aspirin (Aspirin 81 Mg Ectab) 81 mg PO DAILY [facility] Stop: 02/05/25 08:59 Last Admin: 01/06/25 11:53 Dose: 81 mg Documented By: COLBY Cyanocobalamin (Cyanocobalamin (B-12) 500 Mcg Tablet) 1,000 mcg PO QAM [facility] Stop: 02/05/25 08:59 Last Admin: 01/06/25 11:53 Dose: 1,000 mcg Documented By: COLBY Enoxaparin Sodium (Enoxaparin Inj 40 Mg/0.4 Ml Syr) 40 mg SQ Q24H [facility] Stop: 02/04/25 20:59 Last Admin: 01/06/25 00:09 Dose: 40 mg Documented By: YFN Insulin Glargine (Lantus Per Unit Charge) 10 units SQ BID [facility] Stop: 02/05/25 08:59 Last Admin: 01/06/25 11:59 Dose: 10 units Documented By: COLBY Co-signed By: LITZY Levothyroxine Sodium (Levothyroxine Sodium 175 Mcg Tablet) 175 mcg PO DAILYBB [facility] Stop: 02/05/25 06:29 Last Admin: 01/06/25 05:30 Dose: Not Given Documented By: ACO Pantoprazole Sodium (Pantoprazole 40 Mg Tab) 40 mg PO [facility] Stop: 02/05/25 08:59 Last Admin: 01/06/25 11:53 Dose: 40 mg Documented By: COLBY Rosuvastatin Calcium (Rosuvastatin Calcium 10 Mg Tab) [facility] Stop: 02/05/25 08:59 Last Admin: 01/06/25 11:54 Dose: 10 mg Documented By: COLBY Sertraline HCl (Sertraline Hcl 50 Mg Tablet) 150 mg PO [facility] Stop: 02/05/25 08:59 Last Admin: 01/06/25 11:53 Dose: 150 mg Documented By: COLBY [place] [address] IN/OBS CONSULT LVL 5,80M Patient Type New History Detailed Exam Detailed Medical Decision Making Moderate Complexity Diagnoses Depression with suicidal ideation F32.A; R45.851 Weakness R53.1 Fall W19.XXXA History of CVA (cerebrovascular accident) Z86.73
--- NOTE | 2025-01-06 16:03 | Ultrasound Report ---
EXAM: US Duplex Bilateral Extracranial Arteries INDICATION: Evaluate for stenosis. TECHNIQUE: Real-time duplex ultrasound scan of the extracranial arteries integrating B-mode two-dimensional vascular structure, Doppler spectral analysis and color flow Doppler imaging. COMPARISON: No relevant prior studies available. FINDINGS: Right common carotid artery: Diffuse intimal thickening. Peak systolic velocity 59 cm/s. No occlusion or segmental stenosis on color flow and spectral Doppler imaging. Right internal carotid artery: Moderate calcific plaque. Peak systolic velocity 86 cm/s. No occlusion or segmental stenosis on color flow and spectral Doppler imaging. Right external carotid artery: No abnormality noted. No occlusion or segmental stenosis on color flow and spectral Doppler imaging. Right vertebral artery: No abnormality noted. Antegrade flow. Right ICA/CCA ratio: 1.5. Within normal limits. Left common carotid artery: Diffuse intimal thickening. Peak systolic velocity 70 cm/s. No occlusion or segmental stenosis on color flow and spectral Doppler imaging. Left internal carotid artery: Mild mixed plaque. Peak systolic velocity 56 cm/s. No occlusion or segmental stenosis on color flow and spectral Doppler imaging. Left external carotid artery: No abnormality noted. No occlusion or segmental stenosis on color flow and spectral Doppler imaging. Left vertebral artery: No abnormality noted. Antegrade flow. Left ICA/CCA ratio: 0.8. Within normal limits. Lymph nodes: No abnormality noted. No lymphadenopathy. CAROTID STENOSIS REFERENCE USING IAC CRITERIA: Mild - <50% stenosis. ICA PSV is less than 180 cm/s and plaque or intimal thickening is visible. Moderate - 50-69% stenosis. ICA PSV is 180 to 230 cm/s and plaque is visible. Severe - 70-94% stenosis. ICA PSV is more than 230 cm/s and visible plaque with lumen narrowing is seen. Near occlusion - 95-99% stenosis. ICA PSV is variable and significant plaque with luminal narrowing is seen. Occluded - 100% stenosis. No flow identified. IMPRESSION: Atherosclerosis with less than 50% bilateral proximal internal carotid stenosis. ACT 112: N/A Electronically signed by Chetna Peñaloza 01-06-2025 4:02 PM
--- NOTE | 2025-01-06 16:51 | Magnetic Resonance Report ---
Clinical History: Left-sided weakness Technique: Multiple T1 and T2-weighted magnetic resonance images were obtained of the brain without gadolinium contrast Findings: There is no sign of acute infarction with normal-appearing diffusion weighted images. There is mild cerebral atrophy, within expected limits for the patient's age. There are focal and confluent areas of increased T2 signal intensity within the periventricular white matter of the cerebral hemispheres bilaterally. This is most likely due to chronic small vessel ischemic disease. There is a small infarct of the right cerebellar hemisphere. There is also an apparent or infarct of the right leg from nucleus and right internal capsule No definite mass lesion is seen on this noncontrast study. There is no intracranial hemorrhage or other fluid collection. No midline shift or other form of herniation is seen. There is no hydrocephalus. Normal flow-voids are seen within the arteries of the [id number]. There is mucosal thickening in the maxillary sinuses. The mastoid air cells appear clear. Impression: 1. Extensive white matter abnormalities, likely due to chronic small vessel ischemic disease 2. No sign of acute infarction 3. Small old infarcts 4. Chronic sinusitis ACT 112: Positive. There are findings on this exam that require communication between the performing entity and the patient following Patient Test Result Information Act ([place] ACT 112) guidelines. Electronically signed by Lawrence Jung 01-06-2025 4:50 PM
[2025-01-06 23:41] LABS: Appearance Urine Clear (Clear); Bacteria Urine Automated None Seen (None Seen); Bilirubin Urine 2+ (Negative); Blood Urine Negative (Negative); Cast Urine Automated 0-2 /lpf (0-2); Color Urine Dark Yellow; Epithelial Cell Urine Auto 0-2 /hpf (0-2); Glucose Urine UA Negative (Negative); Ketones Urine 2+ (Negative); Leukocyte Esterase Urine Negative (Negative); Nitrite Urine Negative (Negative); Protein Urine Trace (Negative); RBC Urine Automated 0-2 /hpf (0-2); Specific Gravity Urine 1.034 (1.000-1.030); Sperm Urine Present (None Prsent); Urobilinogen Urine Negative (Negative); WBC Urine Automated 0-5 /hpf (0-5)
[2025-01-07 06:19] LABS: Mean Corpuscular Hemoglobin 27.1 pg (25.0-34.0); Mean Corpuscular Hgb Conc 34.2 g/dL (32.0-36.0); Mean Corpuscular Volume 79.3 fL (80.0-100.0); Mean Platelet Volume 9.3 fL (9.4-12.4); Platelet Count 200 K/uL (130-400); RDW Coefficient of Variation 14.1 % (11.5-14.5); Red Blood Count 4.79 M/uL (4.70-6.10); White Blood Count 6.87 K/ul (4.8-10.8)
[2025-01-07 06:30] LABS: BUN Creatinine Ratio 12.4 (10-20); Calcium 9.1 mg/dl (8.6-10.3); Creatinine Clr Calc Pharmacy 90.5 ml/min; Magnesium 1.7 mg/dl (1.7-2.4); Phosphorus 3.7 mg/dl (2.5-4.9); Potassium 3.7 mmol/L (3.5-5.1)
[2025-01-07] MEDS: lisinopril 5 MG TAB PO SCH (08:33)
[2025-01-07] MEDS: MICONAZOLE NITRATE POWDER 85 GM EXT PRN (08:35)
--- NOTE | 2025-01-07 12:15 | Hospitalist Progress Note ---
Date of Service January 07, 2025 Assessment & Plan (1) Weakness: (2) Fall: (3) Ambulatory dysfunction: (4) History of CVA (cerebrovascular accident): Plan: Patient is 59 year old male with PMH depression, HTN, DM II, CVA with residual left sided weakness presented to ER with complaint of bilateral leg weakness x 1 month and recurrent falls being admitted for stroke eval and recent SI. CT Head: no acute intracranial changes Troponins flat at 29 and 32. History of chronically elevated troponins in past. Denies chest pain, shortness of breath. EKG sinus rhythm first-degree AV block, nonspecific T wave changes per my interpretation Remaining labs fairly unremarkable Acute/subacute CVA ruled out - Brain MRI 01/06 with extensive white matter abnormalities, likely due to chronic small vessel ischemic disease, no sign of acute infarction - Carotid dopplers with atherosclerosis with less than 50% bilateral proximal internal carotid stenosis (mild, per criteria) - Echo with bubble study - systolic function mildly reduced with EF 40-45%, large sized apical, inferior and posterior wall motion abnormality with hypokinesis of the segments Fall precautions Lipids within range, hgb a1c 7.2 with known DM II as below PT/OT evaluated- recommending inpatient rehab, not safe to return home alone Anticipate dc to rehab vs consideration to move to [facility] over weekend Restarted on aspirin, rosuvastatin daily (5) Urinary retention: Plan: Reduced urine output today - bladder scanned for 240ml earlier this afternoon. Encouraged PO intake, started IV fluids. Bladder scan Q shift, straight cath for >400ml (6) Knee pain: Plan: Reports left knee pain x months R and L knee XR reviewed- mild osteoarthritic changes of the tibio-femoral and patello-femoral articulations, mild lateral patellar subluxation PT/OT recommending rehab PRN Tylenol (7) Depression: Plan: Recent SI and suicide attempt with aspirin overdose Discharged from [facility] on 01/04/25 Reports continued depression and "wishes would " but denies any current plan or recurrent attempt Will continue sertraline Behavioral health consult - started Abilify 5mg, continue 1:1 sitter for now however no indication for inpatient psych at this time (8) DM2 (diabetes mellitus, type 2): Plan: Insulin-dependent A1c: 10.7 in 08/05 -> improved to 7.2 as of 01/06 Continue home insulin NovoLog sliding scale per protocol A1c in a.m. (9) Hypertension: Plan: BPs elevated in ER 156/95 -> given PO hydralazine 25mg and BP normotensive at 125/80 Resumed lisinopril 5mg (was on in the past), consider continuing hydralazine daily. Monitor DVT Ppx: SQ lovenox Code status: FULL PCP: Barbara Dispo: admitted to [facility] tele Patient seen in collaboration with Dr. Glez. Please see addendum. Updated nieces at bedside this afternoon. I spent a total of 60 minutes coordinating, documenting, and providing care for this patient excluding time spent in the performance of separately billed services or time spent by another provider/QHP. Admission and Anticipated Discharge Date Admission Date: January 05, 2025 Supervising Physician Co-Signing Physician Notes Pt seen and examined by me, care coordinated with SALUD Winn, pls refer to her note above for further detail. Pt seen lying in bed, in NAD, awake and alert. cooperative, answers appropriately. Pt able to move both LEs, noted some L-sided weakness on exam. Lungs CTAB, heart sounds regular, abdomen soft, obese. MRI brain- no acute cva. Discussed w/ psychiatry yesterday - plan to add abilify. Today again discussed w/ psych as pt reported SI to RN. In addition, today noted urinary retention, decreased urine outpput - giving IVF, encouraging po intake, bladder scan per nursing staff. may need straight cath - pt reports about a year ago had episode like this which has resolved on its own.Per OT, recommend rehab. MD Newton Subjective Patient seen and evaluated in 281-1. Sitting in bedside chair, comfortable. Sitter present. Hungry and requesting pizza. Feels depressed and unsafe to be at home alone. However, denies any SI or plan to me at this time. Has chronic left-sided weakness residual from previous stroke. Denies any difficulty speaking or swallowing. No new focal weakness. No chest pain, shortness of breath or abdominal pain. Review of Systems Review of Systems: At least ten systems reviewed and negative except as noted in the HPI. Physical Exam Physical Exam: Gen: WD/WN, NAD, sitting in bedside chair, A&Ox3, 1:1 at bedside HEENT: Normocephalic, atraumatic, conjunctivae moist, sclerae anicteric, mucous membranes moist Lung: Clear to Auscultation bilaterally Heart: Regular rate, regular rhythm Abdomen: Soft, NT, ND +BS x 4 Extremities: +LUE and LLE 4/5 strength (chronic), RUE and RLE 5/5 strength Neuro: A&O x 3, no focal deficits noted, flat affect, slow speech but clear, answers questions appropriately Skin: Warm, no rash Results & Data Results & Data Vital Signs (Past 12 Hours) Vital Signs Temp Pulse Pulse Pulse Resp BP Pulse Ox 01/07/25 11:38 36.6 C 81 16 177/102 H 94 01/07/25 08:40 36.7 C 88 19 176/124 H 96 01/07/25 08:00 01/07/25 07:50 36.7 C 88 19 176/124 H 96 01/07/25 07:00 85 01/07/25 04:00 36.5 C 89 20 165/102 H 94 O2 Del Method 01/07/25 11:38 Room Air 01/07/25 08:40 Room Air 01/07/25 08:00 Room Air 01/07/25 07:50 Room Air 01/07/25 07:00 01/07/25 04:00 Room Air Laboratory Results Short CBC 01/07/25 Range/Units 05:45 WBC 6.87 (4.8-10.8) K/ul Hgb 13.0 L (14.0-18.0) g/dl Hct 38.0 L (42.0-52.0) % Plt Count 200 (130-400) K/uL BMP 01/07/25 05:45 Sodium 134 L Potassium 3.7 Chloride 103 Carbon Dioxide 26 BUN 12 Creatinine 0.97 Glucose 186 H Calcium 9.1 Urine 01/06/25 Range/Units 23:09 Urine Color Dark Yellow Urine Appearance Clear (Clear) Urine pH 5.0 (4.5-7.5) Ur Specific [place] 1.034 H (1.000-1.030) Urine Protein Trace H (Negative) Urine Glucose (UA) Negative (Negative) Diagnostic Findings Chest X-Ray 01/05/25 13:40 XR chest 1V portable CLINICAL HISTORY: weakness COMPARISON STUDY: 12/10/2024 FINDINGS: Stable mild cardiomegaly without pulmonary vascular congestion. No effusion, consolidation, or pneumothorax. IMPRESSION: No acute findings. ACT 112: Negative or not required by law. Electronically signed by: Jone Kwon M.D. 01/05/2025 2:[address] 01/05/25 13:41 CT head/brain wo con CLINICAL HISTORY: weakness. TECHNIQUE: Multiple axial CT images of the head were obtained without contrast. A dose lowering technique was utilized adhering to the principles of ALARA. CT DOSE: 1100.35 mGy.cm COMPARISON: 12/10/2024 FINDINGS: No intracranial hemorrhage seen. No mass effect, midline shift, or hydrocephalus. There is stable severe patchy periventricular hypodensity which is nonspecific but usually represents chronic small vessel ischemic change. There is a stable small old lacunar infarction in the right basal ganglia. No skull fracture seen. There is mild mucosal thickening in the maxillary and ethmoid sinuses. IMPRESSION: No acute findings. Otherwise as described. ACT 112: Negative or not required by law. The above report was generated using voice recognition software. It may contain grammatical, syntax or spelling errors. Electronically signed by: Jone Kwon M.D. 01/05/2025 3:41 PM Knee X-Ray 01/05/25 18:02 EXAM: XR knee LT 3V CLINICAL HISTORY: knee pain. TECHNIQUE: X-ray images of the left knee were obtained in anteroposterior (AP), lateral, and sunrise/skyline (patellar) projections. COMPARISON: No prior studies available for comparison. FINDINGS: Bone Structure: Bone structure is normal and well-aligned. No evidence of acute fractures or dislocations. No osseous lesions or abnormalities identified. Joint Spaces: Mild osteoarthritic changes of the tibio-femoral joint, evident by relative narrowing of the medial aspect of the joint and spiking of the tibial spine as well as tiny osteophytic lipping at the articular surfaces. Mild osteoarthritic changes of the patello-femoral joint, evident by narrowing of the joint space and marginal osteophytic lipping at the articular surfaces. Patella: Mild lateral patellar subluxation. Soft Tissues: Suspected faint calcifications at the lateral meniscus. IMPRESSION: 1. Mild osteoarthritic changes of the tibio-femoral and patello-femoral articulations. 2. Mild lateral patellar subluxation. 3. Suspected calcification at lateral meniscus. Disclaimer: A subtle bone abnormality or fracture may not be readily apparent on X-rays, thus clinical correlation and further imaging including follow-up CT, MRI, or follow-up X-rays are advised as needed. Electronically signed by Robson Benoit 01-06-2025 09:10 AM Knee X-Ray 01/05/25 18:02 EXAM: XR knee RT 3V CLINICAL HISTORY: knee pain TECHNIQUE: X-ray images of the right knee were obtained in anteroposterior (AP), lateral, and sunrise/skyline (patellar) projections. COMPARISON: No prior studies available for comparison. FINDINGS: Bone Structure: Bone structure is normal and well-aligned. No evidence of acute fractures or dislocations. No osseous lesions or abnormalities identified. Joint Spaces: Mild osteoarthritic changes of the tibio-femoral joint, evident by relative narrowing of the medial aspect of the joint and spiking of the tibial spine. Mild osteoarthritic changes of the patello-femoral joint, evident by narrowing of the joint space and marginal osteophytic lipping at the articular surfaces. Patella: Mild lateral patellar subluxation. Soft Tissues: Periarticular soft tissues appear normal and unremarkable. No soft tissue swelling, calcifications, or foreign bodies noted. IMPRESSION: 1. Mild osteoarthritic changes of the tibio-femoral and patello-femoral articulations. 2. Mild lateral patellar subluxation. Disclaimer: A subtle bone abnormality or fracture may not be readily apparent on X-rays, thus clinical correlation and further imaging including follow-up CT, MRI, or follow-up X-rays are advised as needed. Electronically signed by Robson Benoit 01-06-2025 08:57 AM Carotid Doppler Study 01/06/25 00:00 EXAM: US Duplex Bilateral Extracranial Arteries INDICATION: Evaluate for stenosis. TECHNIQUE: Real-time duplex ultrasound scan of the extracranial arteries integrating B-mode two-dimensional vascular structure, Doppler spectral analysis and color flow Doppler imaging. COMPARISON: No relevant prior studies available. FINDINGS: Right common carotid artery: Diffuse intimal thickening. Peak systolic velocity 59 cm/s. No occlusion or segmental stenosis on color flow and spectral Doppler imaging. Right internal carotid artery: Moderate calcific plaque. Peak systolic velocity 86 cm/s. No occlusion or segmental stenosis on color flow and spectral Doppler imaging. Right external carotid artery: No abnormality noted. No occlusion or segmental stenosis on color flow and spectral Doppler imaging. Right vertebral artery: No abnormality noted. Antegrade flow. Right ICA/CCA ratio: 1.5. Within normal limits. Left common carotid artery: Diffuse intimal thickening. Peak systolic velocity 70 cm/s. No occlusion or segmental stenosis on color flow and spectral Doppler imaging. Left internal carotid artery: Mild mixed plaque. Peak systolic velocity 56 cm/s. No occlusion or segmental stenosis on color flow and spectral Doppler imaging. Left external carotid artery: No abnormality noted. No occlusion or segmental stenosis on color flow and spectral Doppler imaging. Left vertebral artery: No abnormality noted. Antegrade flow. Left ICA/CCA ratio: 0.8. Within normal limits. Lymph nodes: No abnormality noted. No lymphadenopathy. CAROTID STENOSIS REFERENCE USING IAC CRITERIA: Mild - <50% stenosis. ICA PSV is less than 180 cm/s and plaque or intimal thickening is visible. Moderate - 50-69% stenosis. ICA PSV is 180 to 230 cm/s and plaque is visible. Severe - 70-94% stenosis. ICA PSV is more than 230 cm/s and visible plaque with lumen narrowing is seen. Near occlusion - 95-99% stenosis. ICA PSV is variable and significant plaque with luminal narrowing is seen. Occluded - 100% stenosis. No flow identified. IMPRESSION: Atherosclerosis with less than 50% bilateral proximal internal carotid stenosis. ACT 112: N/A Electronically signed by Chetna Peñaloza 01-06-2025 4:02 PM Videofluoroscopic Swallow 01/06/25 11:30 FL video swallow CLINICAL HISTORY: r/o aspiration. TECHNIQUE: Video fluoroscopic evaluation of swallowing was performed in the AP and lateral projections by the speech pathology staff. The patient is fed nectar-thick and thin liquid barium, a barium coated wafer, and barium pudding. FLUOROSCOPY TIME: 56 seconds. COMPARISON: None FINDINGS: There was trace aspiration with thin liquid. IMPRESSION: Trace aspiration. ACT 112: Negative or not required by law. Electronically signed by: Jone Kwon M.D. 01/06/2025 1:30 PM Brain MRI 01/06/25 13:24 Clinical History: Left-sided weakness Technique: Multiple T1 and T2-weighted magnetic resonance images were obtained of the brain without gadolinium contrast Findings: There is no sign of acute infarction with normal-appearing diffusion weighted images. There is mild cerebral atrophy, within expected limits for the patient's age. There are focal and confluent areas of increased T2 signal intensity within the periventricular white matter of the cerebral hemispheres bilaterally. This is most likely due to chronic small vessel ischemic disease. There is a small infarct of the right cerebellar hemisphere. There is also an apparent or infarct of the right leg from nucleus and right internal capsule No definite mass lesion is seen on this noncontrast study. There is no intracranial hemorrhage or other fluid collection. No midline shift or other form of herniation is seen. There is no hydrocephalus. Normal flow-voids are seen within the arteries of the [id number]. There is mucosal thickening in the maxillary sinuses. The mastoid air cells appear clear. Impression: 1. Extensive white matter abnormalities, likely due to chronic small vessel ischemic disease 2. No sign of acute infarction 3. Small old infarcts 4. Chronic sinusitis ACT 112: Positive. There are findings on this exam that require communication between the performing entity and the patient following Patient Test Result Information Act ([place] ACT 112) guidelines. Electronically signed by Lawrence Jung 01-06-2025 4:50 PM
[2025-01-07] MEDS: SODIUM CHLORIDE 0.9% 500 ML IV ONE (12:32)
[2025-01-07] MEDS: hydrALAZINE HCL 25 MG TAB PO STA (12:54)
[2025-01-07] MEDS: ARIPiprazole 5 MG TAB PO SCH (13:44)
[2025-01-07 17:42] LABS: Appearance Urine Clear (Clear); Bacteria Urine Automated None Seen (None Seen); Bilirubin Urine Negative (Negative); Blood Urine Negative (Negative); Cast Urine Automated 0-2 /lpf (0-2); Color Urine Dark Yellow; Epithelial Cell Urine Auto 0-2 /hpf (0-2); Glucose Urine UA Negative (Negative); Ketones Urine Trace (Negative); Leukocyte Esterase Urine Trace (Negative); Nitrite Urine Negative (Negative); Protein Urine Trace (Negative); RBC Urine Automated 0-2 /hpf (0-2); Specific Gravity Urine 1.029 (1.000-1.030); Urobilinogen Urine Negative (Negative); WBC Urine Automated 0-5 /hpf (0-5); pH Urine 5.5 (4.5-7.5)
[2025-01-08] MEDS: SODIUM CHLORIDE 0.9% 1,000 ML IV SCH (04:47)
[2025-01-08 08:05] LABS: Hematocrit (blood only) 37.9 % (42.0-52.0); Hemoglobin 13.1 g/dl (14.0-18.0); Mean Corpuscular Hemoglobin 27.6 pg (25.0-34.0); Mean Corpuscular Hgb Conc 34.6 g/dL (32.0-36.0); Mean Corpuscular Volume 79.8 fL (80.0-100.0); Mean Platelet Volume 8.7 fL (9.4-12.4); Platelet Count 203 K/uL (130-400); RDW Coefficient of Variation 14.2 % (11.5-14.5); RDW Standard Deviation 41.6 fL (36.4-46.3); Red Blood Count 4.75 M/uL (4.70-6.10); White Blood Count 6.64 K/ul (4.8-10.8)
[2025-01-08 08:22] LABS: BUN Creatinine Ratio 11.1 (10-20); Calcium 9.1 mg/dl (8.6-10.3); Creatinine Clr Calc Pharmacy 98.8 ml/min; Potassium 3.7 mmol/L (3.5-5.1)
--- NOTE | 2025-01-08 12:27 | Hospitalist Progress Note ---
Date of Service January 08, 2025 Assessment & Plan (1) Weakness: (2) Fall: (3) Ambulatory dysfunction: (4) History of CVA (cerebrovascular accident): Plan: Patient is 59 year old male with PMH depression, HTN, DM II, CVA with residual left sided weakness presented to ER with complaint of bilateral leg weakness x 1 month and recurrent falls being admitted for stroke eval and recent SI. CT Head: no acute intracranial changes Troponins flat at 29 and 32. History of chronically elevated troponins in past. Denies chest pain, shortness of breath. EKG sinus rhythm first-degree AV block, nonspecific T wave changes per my interpretation Remaining labs fairly unremarkable Acute/subacute CVA ruled out - Brain MRI 01/06 with extensive white matter abnormalities, likely due to chronic small vessel ischemic disease, no sign of acute infarction - Carotid dopplers with atherosclerosis with less than 50% bilateral proximal internal carotid stenosis (mild, per criteria) - Echo with bubble study - systolic function mildly reduced with EF 40-45%, large sized apical, inferior and posterior wall motion abnormality with hypokinesis of the segments Fall precautions Lipids within range, hgb a1c 7.2 with known DM II as below PT/OT evaluated- recommending inpatient rehab, not safe to return home alone Restarted on aspirin, rosuvastatin daily (5) Urinary retention: Plan: Reduced urine output today - Encouraged PO intake, continue gentle IV fluids for now. Bladder scan Q shift, straight cath for >400ml (6) Knee pain: Plan: Reports left knee pain x months R and L knee XR reviewed- mild osteoarthritic changes of the tibio-femoral and patello-femoral articulations, mild lateral patellar subluxation PT/OT recommending rehab PRN Tylenol (7) Depression: Plan: Recent SI and suicide attempt with aspirin overdose Discharged from [facility] on 01/04/25 Reports continued depression and "wishes would " but denies any current plan or recurrent attempt Will continue sertraline Behavioral health consulted - recommended starting Abilify 5mg Denied SI - do not believe he is an acute risk while in hospital, so no indication for inpatient psych at this time. Discontinuing 1;1. Feel appropriate for discharge to rehab (8) DM2 (diabetes mellitus, type 2): Plan: Insulin-dependent A1c: 10.7 in 08/05 -> improved to 7.2 as of 01/06 Continue home insulin NovoLog sliding scale per protocol A1c in a.m. (9) Hypertension: Plan: BPs elevated in ER 156/95 -> given PO hydralazine 25mg and BP normotensive at 125/80 Resumed lisinopril 5mg (was on in the past), normotensive today DVT Ppx: SQ lovenox Code status: FULL PCP: Barbara Dispo: [facility] Patient seen in collaboration with Dr. Glez. Please see addendum. I spent a total of 45 minutes coordinating, documenting, and providing care for this patient excluding time spent in the performance of separately billed servic es or time spent by another provider/QHP. Admission and Anticipated Discharge Date Admission Date: January 05, 2025 Supervising Physician Co-Signing Physician Notes Pt seen and examined by me, care coordinated with SALUD Winn, pls refer to her note above for further detail. Pt seen lying in bed, in NAD, awake and alert. cooperative, answers appropriately. Pt able to move both LEs, noted some L-sided weakness on exam. Lungs CTAB, heart sounds regular, abdomen soft, obese. MRI brain- no acute cva. Discussed w/ psychiatry - added abilify ok to discontinue 1:1. Yesterday noted urinary retention, decreased urine outpput - received IVF, encouraged po intake, bladder scan per nursing staff - pt did urinate but still decreased UOP, also + constipation. Will start miralax, give suppository, cont. bladder scan, IVF, may need straight cath. pt reports about a year ago had episode like this which has resolved on its own.Per OT, recommend rehab. MD Newton Subjective Patient seen and evaluated in 281-1. Sitting in bedside chair, comfortable. Sitter present. Ambulating in room with walker and queuing. Feels depressed and unsafe to be at home alone. However, denies overt SI or plan to me at this time. Has chronic left-sided weakness residual from previous stroke. Denies any difficulty speaking or swallowing. No new focal weakness. No chest pain, shortness of breath or abdominal pain. Urine output slowed with bladder scan today for 306ml. Review of Systems Review of Systems: At least ten systems reviewed and negative except as noted in the HPI. Physical Exam Physical Exam: Gen: WD/WN, NAD, sitting in bedside chair, A&Ox3, 1:1 at bedside HEENT: Normocephalic, atraumatic, conjunctivae moist, sclerae anicteric, mucous membranes moist Lung: Clear to Auscultation bilaterally Heart: Regular rate, regular rhythm Abdomen: Soft, NT, ND +BS x 4 Extremities: +LUE and LLE 4/5 strength (chronic), RUE and RLE 5/5 strength Neuro: A&O x 3, no focal deficits noted, flat affect, slow speech but clear, answers questions appropriately Skin: Warm, no rash Results & Data Results & Data Vital Signs (Past 12 Hours) Vital Signs Temp Pulse Pulse Resp BP BP Pulse Ox 01/08/25 11:23 34.6 C L 86 17 118/82 96 01/08/25 10:00 36.5 C 91 H 18 118/82 97 01/08/25 08:43 34.6 C L 86 17 150/86 H 94 01/08/25 08:00 01/08/25 07:02 36.4 C L 88 16 153/89 H 96 01/08/25 06:00 89 01/08/25 03:54 36.4 C L 79 18 149/87 H 96 O2 Del Method 01/08/25 11:23 Room Air 01/08/25 10:00 Room Air 01/08/25 08:43 Room Air 01/08/25 08:00 Room Air 01/08/25 07:02 Room Air 01/08/25 06:00 01/08/25 03:54 Room Air Laboratory Results Short CBC 01/08/25 Range/Units 07:37 WBC 6.64 (4.8-10.8) K/ul Hgb 13.1 L (14.0-18.0) g/dl Hct 37.9 L (42.0-52.0) % Plt Count 203 (130-400) K/uL BMP 01/08/25 07:37 Sodium 137 Potassium 3.7 Chloride 105 Carbon Dioxide 25 BUN 10 Creatinine 0.90 Glucose 109 H Calcium 9.1 Urine 01/07/25 Range/Units 17:17 Urine Color Dark Yellow Urine Appearance Clear (Clear) Urine pH 5.5 (4.5-7.5) Ur Specific [place] 1.029 (1.000-1.030) Urine Protein Trace H (Negative) Urine Glucose (UA) Negative (Negative) Diagnostic Findings Chest X-Ray 01/05/25 13:40 XR chest 1V portable CLINICAL HISTORY: weakness COMPARISON STUDY: 12/10/2024 FINDINGS: Stable mild cardiomegaly without pulmonary vascular congestion. No effusion, consolidation, or pneumothorax. IMPRESSION: No acute findings. ACT 112: Negative or not required by law. Electronically signed by: Jone Kwon M.D. 01/05/2025 2:[address] 01/05/25 13:41 CT head/brain wo con CLINICAL HISTORY: weakness. TECHNIQUE: Multiple axial CT images of the head were obtained without contrast. A dose lowering technique was utilized adhering to the principles of ALARA. CT DOSE: 1100.35 mGy.cm COMPARISON: 12/10/2024 FINDINGS: No intracranial hemorrhage seen. No mass effect, midline shift, or hydrocephalus. There is stable severe patchy periventricular hypodensity which is nonspecific but usually represents chronic small vessel ischemic change. There is a stable small old lacunar infarction in the right basal ganglia. No skull fracture seen. There is mild mucosal thickening in the maxillary and ethmoid sinuses. IMPRESSION: No acute findings. Otherwise as described. ACT 112: Negative or not required by law. The above report was generated using voice recognition software. It may contain grammatical, syntax or spelling errors. Electronically signed by: Jone Kwon M.D. 01/05/2025 3:41 PM Knee X-Ray 01/05/25 18:02 EXAM: XR knee LT 3V CLINICAL HISTORY: knee pain. TECHNIQUE: X-ray images of the left knee were obtained in anteroposterior (AP), lateral, and sunrise/skyline (patellar) projections. COMPARISON: No prior studies available for comparison. FINDINGS: Bone Structure: Bone structure is normal and well-aligned. No evidence of acute fractures or dislocations. No osseous lesions or abnormalities identified. Joint Spaces: Mild osteoarthritic changes of the tibio-femoral joint, evident by relative narrowing of the medial aspect of the joint and spiking of the tibial spine as well as tiny osteophytic lipping at the articular surfaces. Mild osteoarthritic changes of the patello-femoral joint, evident by narrowing of the joint space and marginal osteophytic lipping at the articular surfaces. Patella: Mild lateral patellar subluxation. Soft Tissues: Suspected faint calcifications at the lateral meniscus. IMPRESSION: 1. Mild osteoarthritic changes of the tibio-femoral and patello-femoral articulations. 2. Mild lateral patellar subluxation. 3. Suspected calcification at lateral meniscus. Disclaimer: A subtle bone abnormality or fracture may not be readily apparent on X-rays, thus clinical correlation and further imaging including follow-up CT, MRI, or follow-up X-rays are advised as needed. Electronically signed by Robson Benoit 01-06-2025 09:10 AM Knee X-Ray 01/05/25 18:02 EXAM: XR knee RT 3V CLINICAL HISTORY: knee pain TECHNIQUE: X-ray images of the right knee were obtained in anteroposterior (AP), lateral, and sunrise/skyline (patellar) projections. COMPARISON: No prior studies available for comparison. FINDINGS: Bone Structure: Bone structure is normal and well-aligned. No evidence of acute fractures or dislocations. No osseous lesions or abnormalities identified. Joint Spaces: Mild osteoarthritic changes of the tibio-femoral joint, evident by relative narrowing of the medial aspect of the joint and spiking of the tibial spine. Mild osteoarthritic changes of the patello-femoral joint, evident by narrowing of the joint space and marginal osteophytic lipping at the articular surfaces. Patella: Mild lateral patellar subluxation. Soft Tissues: Periarticular soft tissues appear normal and unremarkable. No soft tissue swelling, calcifications, or foreign bodies noted. IMPRESSION: 1. Mild osteoarthritic changes of the tibio-femoral and patello-femoral articulations. 2. Mild lateral patellar subluxation. Disclaimer: A subtle bone abnormality or fracture may not be readily apparent on X-rays, thus clinical correlation and further imaging including follow-up CT, MRI, or follow-up X-rays are advised as needed. Electronically signed by Robson Benoit 01-06-2025 08:57 AM Carotid Doppler Study 01/06/25 00:00 EXAM: US Duplex Bilateral Extracranial Arteries INDICATION: Evaluate for stenosis. TECHNIQUE: Real-time duplex ultrasound scan of the extracranial arteries integrating B-mode two-dimensional vascular structure, Doppler spectral analysis and color flow Doppler imaging. COMPARISON: No relevant prior studies available. FINDINGS: Right common carotid artery: Diffuse intimal thickening. Peak systolic velocity 59 cm/s. No occlusion or segmental stenosis on color flow and spectral Doppler imaging. Right internal carotid artery: Moderate calcific plaque. Peak systolic velocity 86 cm/s. No occlusion or segmental stenosis on color flow and spectral Doppler imaging. Right external carotid artery: No abnormality noted. No occlusion or segmental stenosis on color flow and spectral Doppler imaging. Right vertebral artery: No abnormality noted. Antegrade flow. Right ICA/CCA ratio: 1.5. Within normal limits. Left common carotid artery: Diffuse intimal thickening. Peak systolic velocity 70 cm/s. No occlusion or segmental stenosis on color flow and spectral Doppler imaging. Left internal carotid artery: Mild mixed plaque. Peak systolic velocity 56 cm/s. No occlusion or segmental stenosis on color flow and spectral Doppler imaging. Left external carotid artery: No abnormality noted. No occlusion or segmental stenosis on color flow and spectral Doppler imaging. Left vertebral artery: No abnormality noted. Antegrade flow. Left ICA/CCA ratio: 0.8. Within normal limits. Lymph nodes: No abnormality noted. No lymphadenopathy. CAROTID STENOSIS REFERENCE USING IAC CRITERIA: Mild - <50% stenosis. ICA PSV is less than 180 cm/s and plaque or intimal thickening is visible. Moderate - 50-69% stenosis. ICA PSV is 180 to 230 cm/s and plaque is visible. Severe - 70-94% stenosis. ICA PSV is more than 230 cm/s and visible plaque with lumen narrowing is seen. Near occlusion - 95-99% stenosis. ICA PSV is variable and significant plaque with luminal narrowing is seen. Occluded - 100% stenosis. No flow identified. IMPRESSION: Atherosclerosis with less than 50% bilateral proximal internal carotid stenosis. ACT 112: N/A Electronically signed by Chetna Peñaloza 01-06-2025 4:02 PM Videofluoroscopic Swallow 01/06/25 11:30 FL video swallow CLINICAL HISTORY: r/o aspiration. TECHNIQUE: Video fluoroscopic evaluation of swallowing was performed in the AP and lateral projections by the speech pathology staff. The patient is fed nectar-thick and thin liquid barium, a barium coated wafer, and barium pudding. FLUOROSCOPY TIME: 56 seconds. COMPARISON: None FINDINGS: There was trace aspiration with thin liquid. IMPRESSION: Trace aspiration. ACT 112: Negative or not required by law. Electronically signed by: Jone Kwon M.D. 01/06/2025 1:30 PM Brain MRI 01/06/25 13:24 Clinical History: Left-sided weakness Technique: Multiple T1 and T2-weighted magnetic resonance images were obtained of the brain without gadolinium contrast Findings: There is no sign of acute infarction with normal-appearing diffusion weighted images. There is mild cerebral atrophy, within expected limits for the patient's age. There are focal and confluent areas of increased T2 signal intensity within the periventricular white matter of the cerebral hemispheres bilaterally. This is most likely due to chronic small vessel ischemic disease. There is a small infarct of the right cerebellar hemisphere. There is also an apparent or infarct of the right leg from nucleus and right internal capsule No definite mass lesion is seen on this noncontrast study. There is no intracranial hemorrhage or other fluid collection. No midline shift or other form of herniation is seen. There is no hydrocephalus. Normal flow-voids are seen within the arteries of the [id number]. There is mucosal thickening in the maxillary sinuses. The mastoid air cells appear clear. Impression: 1. Extensive white matter abnormalities, likely due to chronic small vessel ischemic disease 2. No sign of acute infarction 3. Small old infarcts 4. Chronic sinusitis ACT 112: Positive. There are findings on this exam that require communication between the performing entity and the patient following Patient Test Result Information Act ([place] ACT 112) guidelines. Electronically signed by Lawrence Jung 01-06-2025 4:50 PM Medications Administered Current Inpatient Medications Acetaminophen (Acetaminophen 325 Mg Tab) 650 mg PO Q4H PRN PRN Reason: Pain or Fever Stop: 02/04/25 22:30 Aripiprazole (Aripiprazole 5 Mg Tab) 5 mg PO QAM [facility] Stop: 02/06/25 12:29 Last Admin: 01/08/25 09:19 Dose: 5 mg Aspirin (Aspirin 81 Mg Ectab) 81 mg PO DAILY [facility] Stop: 02/05/25 08:59 Last Admin: 01/08/25 09:19 Dose: 81 mg Cyanocobalamin (Cyanocobalamin (B-12) 500 Mcg Tablet) 1,000 mcg PO QAM [facility] Stop: 02/05/25 08:59 Last Admin: 01/08/25 09:20 Dose: 1,000 mcg Dextrose (Dextrose 50% 50 Ml Syringe) 25 - 50 ml IV UD PRN; Protocol PRN Reason: Hypoglycemia Protocol Stop: 02/04/25 22:30 Enoxaparin Sodium (Enoxaparin Inj 40 Mg/0.4 Ml Syr) 40 mg SQ Q24H [facility] Stop: 02/04/25 20:59 Last Admin: 01/07/25 20:31 Dose: 40 mg Glucagon (Glucagon For Inj 1 Mg Vial) 1 mg SQ UD PRN; Protocol PRN Reason: Hypoglycemia Protocol Stop: 02/04/25 22:30 Glucose (Glucose 40% Gel 15 Gm Tube) 15 - 30 gm PO UD PRN; Protocol PRN Reason: Hypoglycemia Protocol Stop: 02/04/25 22:30 Glucose (Glucose 10 Tab/Tube) 4 - 8 tab PO UD PRN; Protocol PRN Reason: Hypoglycemia Protocol Stop: 02/04/25 22:30 Sodium Chloride (Nss) 1,000 mls @ 80 mls/hr IV .[id number] [facility] Stop: 01/08/25 16:59 Last Admin: 01/08/25 04:47 Dose: 80 mls/hr Insulin Aspart (Insulin Aspart Per Unit Charge) 0 units SC ACHS [facility] Stop: 02/05/25 16:29 Last Admin: 01/08/25 13:36 Dose: 4 units Insulin Glargine (Lantus Per Unit Charge) 10 units SQ BID [facility] Stop: 02/05/25 08:59 Last Admin: 01/08/25 10:14 Dose: 10 units Levothyroxine Sodium (Levothyroxine Sodium 175 Mcg Tablet) 175 mcg PO DAILYBB [facility] Stop: 02/05/25 06:29 Last Admin: 01/08/25 06:29 Dose: 175 mcg Lisinopril (Lisinopril 5 Mg Tab) 5 mg PO QAM [facility] Stop: 02/06/25 08:59 Last Admin: 01/08/25 09:01 Dose: 5 mg Miconazole Nitrate (Miconazole Nitrate Powder 85 Gm) 1 appln EXT PRN PRN PRN Reason: Affected Skin Folds Stop: 02/05/25 23:23 Last Admin: 01/08/25 11:43 Dose: 1 appln Miscellaneous (Carbohydrates For Hypoglycemia ) 15 - 30 gm PO UD PRN PRN Reason: Hypoglycemia Protocol Stop: 02/04/25 22:30 Ondansetron HCl (Ondansetron Inj 2 Mg/Ml 2 Ml Vial) 4 mg IV Q6H PRN PRN Reason: Nausea Stop: 02/04/25 22:30 Pantoprazole Sodium (Pantoprazole 40 Mg Tab) 40 mg PO QAM [facility] Stop: 02/05/25 08:59 Last Admin: 01/08/25 09:22 Dose: 40 mg Polyethylene Glycol (Polyethylene (Miralax) 17 Gm Pack) 17 gm PO DAILY PRN PRN Reason: Constipation Stop: 02/04/25 22:30 Polyethylene Glycol (Polyethylene (Miralax) 17 Gm Pack) 17 gm PO DAILY [facility] Stop: 02/08/25 08:59 Rosuvastatin Calcium (Rosuvastatin Calcium 10 Mg Tab) 10 mg PO QAM [facility] Stop: 02/05/25 08:59 Last Admin: 01/08/25 09:22 Dose: 10 mg Sertraline HCl (Sertraline Hcl 50 Mg Tablet) 150 mg PO QAM [facility] Stop: 02/05/25 08:59 Last Admin: 01/08/25 09:23 Dose: 150 mg
[2025-01-08] MEDS: POLYETHYLENE (MIRALAX) 17 GM PACK PO ONE (14:15)
[2025-01-08] MEDS: bisacodyL 10 MG SUPP PR STA (14:15)
--- NOTE | 2025-01-09 07:09 | Hospitalist Progress Note ---
Date of Service January 09, 2025 Assessment & Plan (1) Weakness: (2) Fall: (3) Ambulatory dysfunction: (4) History of CVA (cerebrovascular accident): Plan: Patient is 59 year old male with PMH depression, HTN, DM II, CVA with residual left sided weakness presented to ER with complaint of bilateral leg weakness x 1 month and recurrent falls being admitted for stroke eval and recent SI. CT Head: no acute intracranial changes Troponins flat at 29 and 32. History of chronically elevated troponins in past. Denies chest pain, shortness of breath. EKG sinus rhythm first-degree AV block, nonspecific T wave changes per my interpretation Remaining labs fairly unremarkable Acute/subacute CVA ruled out - Brain MRI 01/06 with extensive white matter abnormalities, likely due to chronic small vessel ischemic disease, no sign of acute infarction - Carotid dopplers with atherosclerosis with less than 50% bilateral proximal internal carotid stenosis (mild, per criteria) - Echo with bubble study - systolic function mildly reduced with EF 40-45%, large sized apical, inferior and posterior wall motion abnormality with hypokinesis of the segments Fall precautions Lipids within range, hgb a1c 7.2 with known DM II as below PT/OT evaluated- recommending inpatient rehab, not safe to return home alone Restarted on aspirin, rosuvastatin daily (5) Urinary retention: Plan: Reduced urine output today - Encouraged PO intake, continue gentle IV fluids for now. Bladder scan Q shift, straight cath for >400ml (6) Knee pain: Plan: Reports left knee pain x months R and L knee XR reviewed- mild osteoarthritic changes of the tibio-femoral and patello-femoral articulations, mild lateral patellar subluxation PT/OT recommending rehab PRN Tylenol (7) Depression: Plan: Recent SI and suicide attempt with aspirin overdose Discharged from [facility] on 01/04/25 Reports continued depression and "wishes would " but denies any current plan or recurrent attempt Will continue sertraline Behavioral health consulted - recommended starting Abilify 5mg Denied SI - do not believe he is an acute risk while in hospital, so no indication for inpatient psych at this time. Discontinuing 1;1. Feel appropriate for discharge to rehab (8) DM2 (diabetes mellitus, type 2): Plan: Insulin-dependent A1c: 10.7 in 08/05 -> improved to 7.2 as of 01/06 Continue home insulin NovoLog sliding scale per protocol A1c in a.m. (9) Hypertension: Plan: BPs elevated in ER 156/95 -> given PO hydralazine 25mg and BP normotensive at 125/80 Resumed lisinopril 5mg (was on in the past), normotensive today DVT Ppx: SQ lovenox Code status: FULL PCP: Barbara Dispo: admitted to [facility] tele Admission and Anticipated Discharge Date Admission Date: January 05, 2025 Results & Data Results & Data Vital Signs (Past 12 Hours) Vital Signs Temp Pulse Pulse Resp BP Pulse Ox O2 Del Method 01/09/25 06:58 78 01/09/25 04:19 36.5 C 75 18 151/90 H 96 Room Air 01/08/25 23:30 37.0 C 78 18 150/92 H 96 Room Air 01/08/25 21:46 81 01/08/25 21:00 Room Air 01/08/25 19:20 36.9 C 79 18 154/89 H 95 Room Air Laboratory Results Short CBC 01/08/25 Range/Units 07:37 WBC 6.64 (4.8-10.8) K/ul Hgb 13.1 L (14.0-18.0) g/dl Hct 37.9 L (42.0-52.0) % Plt Count 203 (130-400) K/uL BMP 01/08/25 07:37 Sodium 137 Potassium 3.7 Chloride 105 Carbon Dioxide 25 BUN 10 Creatinine 0.90 Glucose 109 H Calcium 9.1 Diagnostic Findings Chest X-Ray 01/05/25 13:40 XR chest 1V portable CLINICAL HISTORY: weakness COMPARISON STUDY: 12/10/2024 FINDINGS: Stable mild cardiomegaly without pulmonary vascular congestion. No effusion, consolidation, or pneumothorax. IMPRESSION: No acute findings. ACT 112: Negative or not required by law. Electronically signed by: Jone Kwon M.D. 01/05/2025 2:[address] 01/05/25 13:41 CT head/brain wo con CLINICAL HISTORY: weakness. TECHNIQUE: Multiple axial CT images of the head were obtained without contrast. A dose lowering technique was utilized adhering to the principles of ALARA. CT DOSE: 1100.35 mGy.cm COMPARISON: 12/10/2024 FINDINGS: No intracranial hemorrhage seen. No mass effect, midline shift, or hydrocephalus. There is stable severe patchy periventricular hypodensity which is nonspecific but usually represents chronic small vessel ischemic change. There is a stable small old lacunar infarction in the right basal ganglia. No skull fracture seen. There is mild mucosal thickening in the maxillary and ethmoid sinuses. IMPRESSION: No acute findings. Otherwise as described. ACT 112: Negative or not required by law. The above report was generated using voice recognition software. It may contain grammatical, syntax or spelling errors. Electronically signed by: Jone Kwon M.D. 01/05/2025 3:41 PM Knee X-Ray 01/05/25 18:02 EXAM: XR knee LT 3V CLINICAL HISTORY: knee pain. TECHNIQUE: X-ray images of the left knee were obtained in anteroposterior (AP), lateral, and sunrise/skyline (patellar) projections. COMPARISON: No prior studies available for comparison. FINDINGS: Bone Structure: Bone structure is normal and well-aligned. No evidence of acute fractures or dislocations. No osseous lesions or abnormalities identified. Joint Spaces: Mild osteoarthritic changes of the tibio-femoral joint, evident by relative narrowing of the medial aspect of the joint and spiking of the tibial spine as well as tiny osteophytic lipping at the articular surfaces. Mild osteoarthritic changes of the patello-femoral joint, evident by narrowing of the joint space and marginal osteophytic lipping at the articular surfaces. Patella: Mild lateral patellar subluxation. Soft Tissues: Suspected faint calcifications at the lateral meniscus. IMPRESSION: 1. Mild osteoarthritic changes of the tibio-femoral and patello-femoral articulations. 2. Mild lateral patellar subluxation. 3. Suspected calcification at lateral meniscus. Disclaimer: A subtle bone abnormality or fracture may not be readily apparent on X-rays, thus clinical correlation and further imaging including follow-up CT, MRI, or follow-up X-rays are advised as needed. Electronically signed by Robson Benoit 01-06-2025 09:10 AM Knee X-Ray 01/05/25 18:02 EXAM: XR knee RT 3V CLINICAL HISTORY: knee pain TECHNIQUE: X-ray images of the right knee were obtained in anteroposterior (AP), lateral, and sunrise/skyline (patellar) projections. COMPARISON: No prior studies available for comparison. FINDINGS: Bone Structure: Bone structure is normal and well-aligned. No evidence of acute fractures or dislocations. No osseous lesions or abnormalities identified. Joint Spaces: Mild osteoarthritic changes of the tibio-femoral joint, evident by relative narrowing of the medial aspect of the joint and spiking of the tibial spine. Mild osteoarthritic changes of the patello-femoral joint, evident by narrowing of the joint space and marginal osteophytic lipping at the articular surfaces. Patella: Mild lateral patellar subluxation. Soft Tissues: Periarticular soft tissues appear normal and unremarkable. No soft tissue swelling, calcifications, or foreign bodies noted. IMPRESSION: 1. Mild osteoarthritic changes of the tibio-femoral and patello-femoral articulations. 2. Mild lateral patellar subluxation. Disclaimer: A subtle bone abnormality or fracture may not be readily apparent on X-rays, thus clinical correlation and further imaging including follow-up CT, MRI, or follow-up X-rays are advised as needed. Electronically signed by Robson Benoit 01-06-2025 08:57 AM Carotid Doppler Study 01/06/25 00:00 EXAM: US Duplex Bilateral Extracranial Arteries INDICATION: Evaluate for stenosis. TECHNIQUE: Real-time duplex ultrasound scan of the extracranial arteries integrating B-mode two-dimensional vascular structure, Doppler spectral analysis and color flow Doppler imaging. COMPARISON: No relevant prior studies available. FINDINGS: Right common carotid artery: Diffuse intimal thickening. Peak systolic velocity 59 cm/s. No occlusion or segmental stenosis on color flow and spectral Doppler imaging. Right internal carotid artery: Moderate calcific plaque. Peak systolic velocity 86 cm/s. No occlusion or segmental stenosis on color flow and spectral Doppler imaging. Right external carotid artery: No abnormality noted. No occlusion or segmental stenosis on color flow and spectral Doppler imaging. Right vertebral artery: No abnormality noted. Antegrade flow. Right ICA/CCA ratio: 1.5. Within normal limits. Left common carotid artery: Diffuse intimal thickening. Peak systolic velocity 70 cm/s. No occlusion or segmental stenosis on color flow and spectral Doppler imaging. Left internal carotid artery: Mild mixed plaque. Peak systolic velocity 56 cm/s. No occlusion or segmental stenosis on color flow and spectral Doppler imaging. Left external carotid artery: No abnormality noted. No occlusion or segmental stenosis on color flow and spectral Doppler imaging. Left vertebral artery: No abnormality noted. Antegrade flow. Left ICA/CCA ratio: 0.8. Within normal limits. Lymph nodes: No abnormality noted. No lymphadenopathy. CAROTID STENOSIS REFERENCE USING IAC CRITERIA: Mild - <50% stenosis. ICA PSV is less than 180 cm/s and plaque or intimal thickening is visible. Moderate - 50-69% stenosis. ICA PSV is 180 to 230 cm/s and plaque is visible. Severe - 70-94% stenosis. ICA PSV is more than 230 cm/s and visible plaque with lumen narrowing is seen. Near occlusion - 95-99% stenosis. ICA PSV is variable and significant plaque with luminal narrowing is seen. Occluded - 100% stenosis. No flow identified. IMPRESSION: Atherosclerosis with less than 50% bilateral proximal internal carotid stenosis. ACT 112: N/A Electronically signed by Chetna Peñaloza 01-06-2025 4:02 PM Videofluoroscopic Swallow 01/06/25 11:30 FL video swallow CLINICAL HISTORY: r/o aspiration. TECHNIQUE: Video fluoroscopic evaluation of swallowing was performed in the AP and lateral projections by the speech pathology staff. The patient is fed nectar-thick and thin liquid barium, a barium coated wafer, and barium pudding. FLUOROSCOPY TIME: 56 seconds. COMPARISON: None FINDINGS: There was trace aspiration with thin liquid. IMPRESSION: Trace aspiration. ACT 112: Negative or not required by law. Electronically signed by: Jone Kwon M.D. 01/06/2025 1:30 PM Brain MRI 01/06/25 13:24 Clinical History: Left-sided weakness Technique: Multiple T1 and T2-weighted magnetic resonance images were obtained of the brain without gadolinium contrast Findings: There is no sign of acute infarction with normal-appearing diffusion weighted images. There is mild cerebral atrophy, within expected limits for the patient's age. There are focal and confluent areas of increased T2 signal intensity within the periventricular white matter of the cerebral hemispheres bilaterally. This is most likely due to chronic small vessel ischemic disease. There is a small infarct of the right cerebellar hemisphere. There is also an apparent or infarct of the right leg from nucleus and right internal capsule No definite mass lesion is seen on this noncontrast study. There is no intracranial hemorrhage or other fluid collection. No midline shift or other form of herniation is seen. There is no hydrocephalus. Normal flow-voids are seen within the arteries of the [id number]. There is mucosal thickening in the maxillary sinuses. The mastoid air cells appear clear. Impression: 1. Extensive white matter abnormalities, likely due to chronic small vessel ischemic disease 2. No sign of acute infarction 3. Small old infarcts 4. Chronic sinusitis ACT 112: Positive. There are findings on this exam that require communication between the performing entity and the patient following Patient Test Result Information Act ([place] ACT 112) guidelines. Electronically signed by Lawrence Jung 01-06-2025 4:50 PM
[2025-01-09 07:58] VITALS: O2SAT 96
--- NOTE | 2025-01-09 09:11 | Discharge Summary ---
Discharge Summary Date of Service January 09, 2025 Principal Dx & Hospital Course #1 = Principal Diagnosis (1) Weakness: (2) Recurrent falls: (3) Ambulatory dysfunction: Ten Corbin is a 59y/o M with PMHx significant for obesity, DMII, diabetic polyneuropathy, HTN, HLD, acquired hypothyroidism, severe CHARLEEN on CPAP HS, history of prior CVA with residual left-sided weakness, cerebrovascular disease, rotator cuff syndrome of right shoulder, psoriasis, chronic pain of left knee, primary open angle glaucoma of both eyes, alopecia areata and depression with prior suicide attempt who presented to the ED from home on 01/05/2025 with bilateral leg weakness x 1 month and recurrent falls. He was admitted and managed for the following: Acute/subacute CVA workup negative. Underwent full stroke workup and evaluation. Head CT with no acute findings. B/L carotid doppler US duplex noted atherosclerosis with less than 50% B/L proximal ICA stenosis. Bran MRI with extensive white matter abnormalities, likely 2/2 chronic small vessel ischemic disease, but no sign of acute infarction. TTE with bubble study without evidence of ASD, PFO or interatrial shunt. Compared to his prior TTE in 02/2024, no significant change noted. Continue ASA and rosuvastatin. Lipid panel WNL. Hgb A1c 7.2% this admission ISO known DMII as below. PT/OT recommending inpatient rehab placement; patient not safe to return home alone. Patient is being discharged in stable condition to [facility] for rehabilitation services. (4) History of CVA (cerebrovascular accident): Prior CVA with residual left-sided weakness. Lipid panel WNL as above. Continue ASA and rosuvastatin. (5) Urinary retention: Acute urinary retention noted during admission. Had prior episodes of this which resolved spontaneously. Able to void in urinal with negative post-void scan prior to discharge. Did not require Benavides catheter placement. (6) Bilateral knee pain: Chronic left knee pain x months. B/L knee XRs reviewed. Mild osteoarthritic changes of the tibio-femoral and patello-femoral articulations, mild lateral patellar subluxation. No acute fractures. PT/OT recommending rehab placement; discharge to [facility] as per above. Continue PRN Tylenol. (7) Depression: Recent suicide attempt with ASA overdose earlier this month with subsequent hospitalization at [facility]. Was discharged from [facility] on 01/04/2025. Reports continued depression and "wishes would " however denies any current suicidal plans or repeat attempts. Appreciate psychiatry consult: "Concerned he remains suicidal and cannot contract for safety. Poor reality testing and is unconcerned how his might impact others. Reports not wanting to live due to lack of community (lost ) and livelihood (lost job). He is future oriented for physical rehab. Reported h/o depression since his 30s. Recent recurrent inpatient psychiatric hospitalizations last discharged this week. No current behavioral problems. Recommending to start Abilify for SSRI augmentation and to address racing thoughts." No indication for inpatient psychiatry. Continue Abilify 5mg daily and sertraline 150mg daily. Do not believe he is an acute risk while in hospital. Prior PA-C discussed with psychiatry. Feel patient is appropriate for discharge to rehab. Patient agreeable with referral for outpatient CM through [facility] - this will be arranged following his rehab stay at [facility]. (8) DM2 (diabetes mellitus, type 2): Hgb A1c 7.2% this admission as above. Insulin-dependent DMII. Resume home insulin regimen. (9) Hypertension: Resumed lisinopril 5mg daily (was on this in the past). BP improving. Encouraged to keep BP log in order to determine need for any BP medication adjustments in the future. Other Chronic Medical Conditions: Acquired Hypothyroidism - TSH WNL, continue levothyroxine. GERD - Continue PPI. PCP: Jennifer Jimenez DO Disposition: Patient is being discharged to [facility] in stable condition with close PCP follow-up to be arranged as well as outpatient psychiatric services. Patient seen in collaboration with Dr. Glez. Please see addendum. I spent a total of 55 minutes coordinating, documenting, and providing care for this patient excluding time spent in the performance of separately billed services or time spent by another provider/QHP. This included personally reviewing all current laboratories and imaging studies, medical reconciliation, outpatient chart review and discussion with specialists. This chart was completed in part utilizing Speech Voice Recognition Software. Grammatical errors, random word insertions, pronoun errors, and incomplete sentences are an occasional consequence of this system due to software limitations, ambient noise, and hardware issues. Any formal questions or concerns about the content, text, or information contained within the body of this dictation should be directly addressed to the provider for clarification. Notes For Next Care Provider Will need PCP follow-up appointment within the next 1-2 weeks. Will also need to have outpatient psychiatric services arranged through [facility]. Medication Changes From Visit Started on Abilify 5mg daily, ASA 81mg daily and rosuvastatin 10mg daily. Restarted on lisinopril 5mg daily. Protonix dose increased to 40mg daily from 20mg daily. Admission HPI Per Admitting Provider Patient is 59 year old male with PMH depression, HTN, DM II, CVA with residual left sided weakness presented to ER with complaint of bilateral leg weakness x 1 month and recurrent falls. History obtained from patient and patient's brother at bedside. Patient reports chronic left arm and leg weakness from prior stroke. Walks with cane at baseline. Patient is [id number]. He reports that he has been dropping things from left arm frequently. He states he previously worked at [employer] in the [employer]. He reports he recently lost his job as he states he was not able to perform tasks and was dropping things and having difficulty ambulating with cane. For greater than a month with bilateral knee discomfort and states has been falling. Patient feels like his knees give out and are weak causing him to fall. Denies noted knee edema or erythema. Patient states while hospitalized at [facility] had continued ambulatory difficulty and was using wheelchair frequently in facility. Upon returning home yesterday patient ambulating into house and he reports felt like his knees gave out and lost balance and fell into the bushes. Patient denies any injury. Denies hitting head, loss of consciousness. He denies any dizziness, chest pain or shortness of breath occurring prior to falls. Patient reports rolled out of bed during the middle the night. His brother was able to get him back in bed. Patient's brother reports he rolled out of bed again this morning and was on floor for approximately 20 minutes. Brother was unable to get patient up and EMS was called for transport patient to ER. Patient denies any known injuries. Denies hitting head or LOC. Brother is concerned that patient is unsafe at home with these recurrent falls. Brother states that he has noted for the past month patient seems to have slower and somewhat mumbled speech. He thought it was secondary to sleep deprivation. Patient and patient's brother concerned that patient may have had another stroke. Patient denies any changes in left arm weakness. He denies any RUE weakness or paresthesias. Patient reports several years ago. Since has been having depression. Reports mother's in fall 2023 and had worsening depression. He states recent loss of job has made him more depressed and the end of November he was feeling suicidal and attempted suicide by reportedly taking half a bottle of aspirin. Patient was seen in ER on 12/11/2024 and was ultimately medically cleared and went to [facility]. Patient states was discharged home yesterday. He states he continues to feel depressed and just wishes "that I would " but denies any current plan. Denies fever/chills, diaphoresis, N/V/D/C, BECERRA, dizziness, syncope, vision changes, neck pain, CP, SOB, palpitations, cough, sore throat, choking, otalgia, rhinorrhea, abdominal pain, paresthesias, extremity edema, back pain, rashes, urinary symptoms. Admission Exam Per Admitting Provider General: no distress, obese male Head: normocephalic, atraumatic Eyes: PERRL, EOM's intact, conjunctiva non-injected, anicteric ENT: normal inspection external ears, nose, mucous membranes moist Neck: supple, trachea midline, non-tender Lungs: clear, no respiratory distress, no wheezing/rhonchi/rales CV: RRR, no murmur, no pretibial edema Abd: normal BS, soft, non-tender Ext: no cyanosis, no calf tenderness, left anterior knee tenderness with ecchymosis noted anterior medial knee. No erythema or edema knees noted. ROM knees intact bilaterally. +LUE and LLE 4/5 strength, RUE and RLE 5/5 strength Neuro: A&O x 3, no focal deficits noted, flat affect, slow speech but speech clear. No nystagmus. face is strong and symmetric, hearing grossly intact, soft palate elevates symmetrically, shoulder shrug intact, tongue is midline, normal movement, no fasciculations Skin: warm, dry Discharge Exam General: Obese, M. NAD. Laying down in bed. A+Ox3. Flat affect. Slowed speech but clear. HEENT: Normocephalic, atraumatic. Conjunctivae normal. External ear and nose normal, oropharynx normal. Respiratory: Normal respiratory effort. Lungs clear to auscultation bilaterally. No accessory muscle use. Cardiovascular: Regular rate and rhythm. Normal peripheral pulses. No BLE edema. Abdomen/GI: Normal bowel sounds, soft, nondistended. Nontender to palpation in all quadrants. Extremities/Musculoskeletal: No cyanosis or clubbing. 4/5 LUE and LLE strength. 5/5 RUE and RLE strength. Neurologic: No overt focal deficits. CN's II-XI not formally tested but appear grossly intact bilaterally. Updated Medication List Medication Instructions Recorded Confirmed Type cyanocobalamin (vitamin B-12) 1,000 mcg PO QAM 01/05/25 01/05/25 History 1,000 mcg tablet (Vitamin B-12) insulin detemir U-100 100 unit/mL 20 unit subcut QAM 01/05/25 01/05/25 History (3 mL) subcutaneous pen levothyroxine 175 mcg tablet 175 mcg PO DAILYBB 01/05/25 01/05/25 History nitroglycerin 0.4 mg sublingual 0.4 mg sublingual DIRECTED PRN 01/05/25 01/05/25 History tablet (Nitrostat) Chest Pain sennosides 8.6 mg-docusate sodium 2 tab-cap PO QAM 01/05/25 01/05/25 History 50 mg tablet (Senna Plus) sertraline 50 mg tablet 150 mg PO QAM 01/05/25 01/05/25 History aripiprazole 5 mg tablet (Abilify) 5 mg PO QAM #30 tabs 01/09/25 Rx aspirin 81 mg tablet,delayed 81 mg PO DAILY #30 tabs 01/09/25 Rx release lisinopril 5 mg tablet 5 mg PO QAM #30 tabs 01/09/25 Rx pantoprazole 40 mg tablet,delayed 40 mg PO QAM #30 tabs 01/09/25 Rx release rosuvastatin 10 mg tablet 10 mg PO QAM #30 tabs 01/09/25 Rx Hospital Stay Data Consultations 01/05/25 22:31 Consult Psychiatry Routine Diagnostic Imagining Performed 01/05/25 13:41 CT head/brain wo con Stat FINDINGS: No intracranial hemorrhage seen. No mass effect, midline shift, or hydrocephalus. There is stable severe patchy periventricular hypodensity which is nonspecific but usually represents chronic small vessel ischemic change. There is a stable small old lacunar infarction in the right basal ganglia. No skull fracture seen. There is mild mucosal thickening in the maxillary and ethmoid sinuses. IMPRESSION: No acute findings. Otherwise as described. 01/06/25 US carotid doppler BI Routine IMPRESSION: Atherosclerosis with less than 50% bilateral proximal internal carotid stenosis. 01/06/25 11:30 FL video swallow Routine 01/06/25 13:24 MR brain wo con Routine Impression: 1. Extensive white matter abnormalities, likely due to chronic small vessel ischemic disease 2. No sign of acute infarction 3. Small old infarcts 4. Chronic sinusitis Discharge Instructions Given to Patient (Per Discharging Provider) Mr. Corbin, fernie were admitted to [facility] due to recurrent falls and bilateral leg weakness x 1 month. You underwent full neurological evaluation including head CT, brain MRI and bilateral carotid duplex doppler ultrasound which all came back NEGATIVE for signs of an acute/new stroke. You were also seen and evaluated by psychiatry given your history of depression and recent suicide attempt. You were started on a new medication call Abilify. De Guzman here is a referral placed for outpatient [facility] - you will be contacted soon regarding this to arrange follow- up after your stay at [facility]. MEDICATION CHANGES: You were started on ABILIFY (aripiprazole) to help with your depression. Please continue taking BOTH your ASPIRIN and ROSUVASTATIN. Your LISINOPRIL was restarted as well due to your blood pressure being on the higher side. Your PROTONIX (pantoprazole) dose was increased to 40mg daily instead of 20mg daily. Please continue to take the above medications as prescribed! RECOMMENDATIONS FOR FOLLOW-UP: A PCP hospital discharge follow-up appointment will be arranged at [facility] to occur within the next 1-2 weeks. Seek medical attention if you have: * temperature above 101F * chest pain or trouble breathing * abdominal pain, nausea, vomiting * diarrhea, dark stools or bloody stools * any unanswered questions or concerns * any thoughts of hurting yourself and/or others Call 911 if symptoms are severe. Please take good care of yourself! It has been a pleasure taking care of you. If you have any questions regarding your recent hospitalization please contact [facility] and request Antoinette Esposito @ [phone]. Total Time Total Time Spent Total Time Spent (In Minutes): 55 Supervising Physician Co-Signing Physician Notes Pt seen and examined by me, care coordinated with SALUD, pls refer to her note above for further detail. Pt seen sitting up in bed, in NAD, awake and alert. cooperative, answers appropriately. Pt able to move both LEs, noted some L-sided weakness on exam. Lungs CTAB, heart sounds regular, abdomen soft, obese. MRI brain- no acute cva. Discussed w/ psychiatry - added carisa waddell to dc to rehab. Previously, noted urinary retention, now resolved - recommend to continue to monitor in rehab for urinary retention. Also gave miralax, suppository for constipation yesterday. Plan [facility] today. MD Newton
[2025-01-09] MEDS: POLYETHYLENE (MIRALAX) 17 GM PACK PO SCH (10:16)
[2025-01-09 11:52] VITALS: BP 132/84; PULSE 82; RESP 18; TEMP 98.1
== END 2025-01-09 13:12 | DRG 948 ==
LOC: ED 13:19 → EDINP 17:59 → SUATTDRO 17:59 → INTOOBSV 17:59 → 2N 20:22

== ENCOUNTER 2025-04-24 16:22 | Inpatient (IN) ==
--- NOTE | 2025-04-24 16:48 | Emergency Department Note ---
Impression & Plan SOB (shortness of breath), Hypothyroid, CHF (congestive heart failure), Hypertension, Weakness, Nonadherence to medication ED Provider Note NAME: JAYESH VELÁSQUEZ AGE: 60 SEX: M : 1965 ARRIVES VIA: Walk-In INFORMANT: [Patient][brother] ED PROVIDER(S): [Rolando Suarez MD] CHIEF COMPLAINT: Shortness of breath, weak HISTORY OF PRESENT ILLNESS: The patient is a 60-year-old male who is here for weakness and shortness of breath. He is off balance and weak and short of breath with exertion. No fever, no real increased cough or congestion. No vomiting or diarrhea, no chest pain or abdominal pain. The patient admits that he stopped all of his typical medications a few months ago. The patient's brother is at bedside, he states that his brother has had a slow decline since leaving [facility] several months ago. PMHx/PSHx/Social Hx: See Below PHYSICAL EXAM: GENERAL: Patient is in no acute distress. HEENT: No acute trauma, normocephalic atraumatic, mucous membranes moist, no nasal congestion. NECK: No stridor, no adenopathy, no meningismus, trachea is midline. LUNGS: Clear to auscultation bilaterally, no wheeze, no rhonchi, breath sounds equal. HEART: Without murmurs gallops or rubs, regular rate and rhythm. ABDOMEN: Soft, nontender, no peritonitis. Obese. EXTREMITIES: No cyanosis, full range of motion of all the joints without pain or difficulty. Mild bilateral pedal edema. NEUROLOGIC: Oriented x 3, no acute motor or sensory deficits, no focal weakness. SKIN: No jaundice, no diaphoresis. Somewhat pale. DIFFERENTIAL DIAGNOSIS: Anemia, medication noncompliance, UTI, CHF, electrolyte imbalance, stroke, among others. EMERGENCY DEPARTMENT PROCEDURES: MEDICAL DECISION MAKING: There is no leukocytosis. A very mild anemia was seen. There was a normal platelet count. No bandemia. INR slightly high at 1.2. No renal failure or significant electrolyte abnormality. Patient appeared to be hypothyroid by our testing. Chest x-ray did not show pneumonia. BNP was elevated consistent with fluid overload/CHF. ECG showed a sinus rhythm, no obvious ischemia. Cardiac enzyme testing x 1 was not consistent with acute cardiac injury. Brain CT showed no acute bleed or mass effect. Urinalysis is pending. The patient has been noncompliant with his medications. He presents with weakness and shortness of breath. He was found to be hypertensive and fluid overloaded. He was hypothyroid. The patient was given IV Lasix, 40 mg. I do believe the patient deserves a hospital stay for diuresis. He will need to be placed back on his typical medications as he has been noncompliant. He may require rehab for strengthening. I did speak with the patient and his brother, I spoke with case management, the on-call hospitalist was consulted. Prior/Outside records/notes reviewed: None ECG per my interpretation: Indication was weakness. The ECG shows a sinus rhythm with a first-degree AV block. The rate is 87. There is poor R wave progression. There is no acute ST elevation, no PVCs. There is some nonspecific ST changes noted. QTc is 464. Continuous Cardiac Monitoring per my interpretation: An order was placed for continuous cardiac monitoring. The monitor shows a rate of 88 with sinus rhythm with a first-degree block. Imaging/x-ray results per my interpretation: Chest x-ray does not show pneumonia or pneumothorax. No true CHF. Chronic Medical/Social conditions affecting care: Medication noncompliance. Care/Management discussed with: Case management, the on-call hospitalist. Level of care consideration(s): After review of the information above and other included data: --I believe the patient requires escalation of care to admission DISPOSITION: Admission Past Med/Surg History Problem List (Updated 04/24/25 @ 19:14 by Rolando Suarez MD) Nonadherence to medication (Acute) Weakness (Acute) Hypertension (Acute) CHF (congestive heart failure) (Acute) Hypothyroid (Acute) SOB (shortness of breath) (Acute) Recurrent falls Urinary retention Oliguria Ambulatory dysfunction Knee pain Fall (Acute) Weakness (Acute) COVID-19 virus infection Dyspnea on minimal exertion (Acute) CHF (congestive heart failure) (Acute) COVID-19 (Acute) Acute hypoxemic respiratory failure Non-ST elevation PA (NSTEMI) (Acute) Phlegmonous cellulitis Hyponatremia (Acute) History of CVA (cerebrovascular accident) Morbid obesity DM2 (diabetes mellitus, type 2) Cellulitis (Acute) Depression HTN (hypertension) CHF (congestive heart failure) Morbid obesity with BMI of 50.0-59.9, adult Pancreatitis Cholangitis concurrent with and due to calculus of gallbladder Hyperlipidemia, unspecified Hypothyroidism, unspecified Obstructive sleep apnea (adult) (pediatric) Unspecified cerebral artery occlusion with cerebral infarction Medical History Bilateral knee pain Hypertension Diabetes Social History Smoking Status: Never smoker Hx Alcohol Use: No Hx Substance Use: No Preferred Language: Upper Sorbian Communication Ability: Effective Superintendent Maintenance Required: No Beliefs That Will Affect Care: None Current Living Situation: Alone Current Living Situation Comment: home alone Feels Safe at Home: Yes Gender Identity: Male Assistive Devices: Glasses Allergies Allergies Allergy/AdvReac Type Severity Reaction Status Date / Time Penicillins Allergy Severe 1969--ANAPH Verified 04/24/25 17:50 YLAXIS doxycycline Allergy Intermediate HIVES Verified 04/24/25 17:50 Macrolide Antibiotics Allergy Unknown UNKNOWN Verified 04/24/25 17:50 morphine AdvReac Intermediate GI UPSET Verified 04/24/25 17:50 Home Meds Home Medications Medication Instructions Recorded Confirmed cyanocobalamin (vitamin B-12) 1,000 mcg PO QAM 01/05/25 01/05/25 1,000 mcg tablet (Vitamin B-12) insulin detemir U-100 100 unit/mL 20 unit subcut QAM 01/05/25 01/05/25 (3 mL) subcutaneous pen levothyroxine 175 mcg tablet 175 mcg PO DAILYBB 01/05/25 01/05/25 nitroglycerin 0.4 mg sublingual 0.4 mg sublingual DIRECTED PRN 01/05/25 01/05/25 tablet (Nitrostat) Chest Pain sennosides 8.6 mg-docusate sodium 2 tab-cap PO QAM 01/05/25 01/05/25 50 mg tablet (Senna Plus) sertraline 50 mg tablet 150 mg PO QAM 01/05/25 01/05/25 Previous Rx's Medication Instructions Recorded aripiprazole 5 mg tablet (Abilify) 5 mg PO QAM #30 tabs 01/09/25 aspirin 81 mg tablet,delayed 81 mg PO DAILY #30 tabs 01/09/25 release lisinopril 5 mg tablet 5 mg PO QAM #30 tabs 01/09/25 pantoprazole 40 mg tablet,delayed 40 mg PO QAM #30 tabs 01/09/25 release rosuvastatin 10 mg tablet 10 mg PO QAM #30 tabs 01/09/25 Results & Data (ED) Vital Signs Vital Signs - 24 hr 04/24/25 16:25 04/24/25 16:29 04/24/25 16:39 Temperature 36.6 C Temperature Source Temporal Artery Scan Pulse Rate 82 Pulse Rate [Finger] Respiratory Rate 18 Respiratory Effort / Characteristics Non-Labored Spontaneous Short of Breath SOB on Exertion Respiratory Depth Normal Normal Respiratory Pattern Regular Regular Blood Pressure 127/93 Blood Pressure [Right Arm] Blood Pressure Mean 104 Blood Pressure Mean [Right Arm] Blood Pressure Position Sitting Pulse Oximetry 98 98 Oxygen Delivery Method Room Air Room Air Oxygen Flow Rate 0 Sepsis Recent Fever Within 48 Hours No Sepsis New/Unexplained Change in Mental Status N/A Sepsis Action Taken by Nursing No Action Required 04/24/25 16:41 04/24/25 18:30 Temperature Temperature Source Pulse Rate 88 Pulse Rate [Finger] 60 Respiratory Rate 18 Respiratory Effort / Characteristics Respiratory Depth Respiratory Pattern Blood Pressure Blood Pressure [Right Arm] 142/87 H Blood Pressure Mean Blood Pressure Mean [Right Arm] 105 Blood Pressure Position Pulse Oximetry 94 Oxygen Delivery Method Room Air Oxygen Flow Rate Sepsis Recent Fever Within 48 Hours Sepsis New/Unexplained Change in Mental Status Sepsis Action Taken by Prison Medications Current Medication List: was personally reviewed by me Laboratory Data Attestation: I reviewed the patient's lab results. 04/24/25 17:08 04/24/25 17:08 Lab Results 04/24/25 Range/Units 17:08 WBC 5.82 (4.8-10.8) K/ul RBC 5.01 (4.70-6.10) M/uL Hgb 13.1 L (14.0-18.0) g/dl Hct 39.7 L (42.0-52.0) % MCV 79.2 L (80.0-100.0) fL MCH 26.1 (25.0-34.0) pg MCHC 33.0 (32.0-36.0) g/dL RDW Std Deviation 39.2 (36.4-46.3) fL RDW Coeff of Oziel 13.7 (11.5-14.5) % Plt Count 188 (130-400) K/uL MPV 9.9 (9.4-12.4) fL Immature Gran % (Auto) 0.2 % Neut % (Auto) 73.9 % Lymph % (Auto) 17.5 % Mcclain % (Auto) 3.6 % Eos % (Auto) 3.6 % Baso % (Auto) 1.2 % Neut # (Auto) 4.30 (1.40-6.50) K/uL Lymph # (Auto) 1.02 L (1.20-3.40) K/uL Mcclain # (Auto) 0.21 (0.11-0.59) K/uL Eos # (Auto) 0.21 (0.00-0.50) K/uL Baso # (Auto) 0.07 (0.00-0.20) K/uL Immature Gran # (Auto) 0.01 (0.01-0.20) K/uL PT 12.5 H (9.0-12.0) Seconds INR 1.2 H (0.9-1.1) APTT 27 (21-31) Seconds PTT Ratio 1.0 Sodium 135 L (136-145) mmol/L Potassium 3.9 (3.5-5.1) mmol/L Chloride 105 (98-107) mmol/L Carbon Dioxide 22 (21-32) mmol/L Anion Gap 8 (3-11) BUN 11 (6-23) mg/dl Creatinine 1.29 (0.6-1.4) mg/dl Est Cr Clr Drug Dosing Not Reportable eGFR 64.27 BUN/Creatinine Ratio 8.5 L (10-20) Glucose 249 H (70-99(Fasting)) mg/dl Calcium 8.7 (8.6-10.3) mg/dl Magnesium 2.0 (1.7-2.4) mg/dl Total Bilirubin 0.7 (0.2-1.0) mg/dl AST 8 L (13-39) U/L ALT 5 L (7-52) U/L Alkaline Phosphatase 63 (34-104) U/L Troponin I High Sens 10.8 (0-20) pg/ml B-Natriuretic Peptide 1299 H (0-100) pg/ml Total Protein 6.6 (6.0-8.3) gm/dl Albumin 3.8 (3.4-5.0) gm/dl Globulin 2.8 (2.5-4.0) gm/dl Albumin/Globulin Ratio 1.4 (0.9-2) TSH 28.029 H (0.300-4.500) uIu/ml Free T4 0.39 L (0.61-1.60) ng/dl Imaging Data Radiologist's Impression: Chest X-Ray 04/24/25 16:37 Chest radiograph, one view History: Dyspnea Comparison: None Findings: Single AP view of the chest performed. No focal consolidation or pleural effusion. No pneumothorax. The cardiomediastinal silhouette is within normal limits. Normal pulmonary vascularity. No evidence for lymphadenopathy. No visualized bony or soft tissue abnormality. Impression: Normal chest radiograph Electronically signed by Martinez Dugan 04-24-2025 5:[address] 04/24/25 16:38 EXAMINATION: Head CT without CLINICAL HISTORY: Dizzy PRIORS: MR 01/06/2025 TECHNIQUE: Contiguous axial images were obtained through the head without the use of intravenous contrast. Sagittal and coronal reformations are supplied. FINDINGS: Motion artifact degrades image quality. Mild parenchymal volume loss noted. Moderate to advanced periventricular lucency, likely representing small vessel occlusive disease. Loss of rouse-white differentiation present in the right frontal lobe, unchanged. Rouse-white differentiation is preserved. No edema or midline shift. No intra-axial or extra-axial hemorrhage. Ventricles are normal in size and configuration. Brainstem and cerebellum have a normal appearance. Calvarium unremarkable. Mild right maxillary sinus mucosal thickening, unchanged. Mastoid air cells are well-pneumatized. Globes are intact. No retrobulbar abnormality. IMPRESSION: 1. No CT evidence of an acute intracranial abnormality. If clinical concern warrants, brain MRI could be considered. Electronically signed by Barbie Hughes 04-24-2025 6:01 PM Discharge Plan Visit Data Chief Complaint: Shortness of Breath/Dyspnea Stated Complaint: SOB, PAIN (GENERALIZED) ED Provider: Rolando Suarez Discharge Problem: SOB (shortness of breath), Hypothyroid, CHF (congestive heart failure), Hypertension, Weakness, Nonadherence to medication Patient Disposition: Admitted As Inpatient Condition: Fair Forms Stand Alone Forms: My [facility] [employer] Prescriptions Prescriptions: No Action levothyroxine 175 mcg Tablet 175 mcg PO DAILYBB sennosides-docusate sodium [Senna Plus] 8.6-50 mg Tablet 2 tab-cap PO QAM cyanocobalamin (vitamin B-12) [Vitamin B-12] 1,000 mcg Tablet 1,000 mcg PO QAM nitroglycerin [Nitrostat] 0.4 mg Tablet, Sublingual 0.4 mg sublingual DIRECTED PRN (Reason: Chest Pain) sertraline 50 mg Tablet 150 mg PO QAM insulin detemir U-100 100 unit/mL (3 mL) Insulin Pen 20 unit SUBCUT QAM aspirin 81 mg Tablet,Delayed Release (Dr/Ec) 81 mg PO DAILY Qty: 30 0RF pantoprazole 40 mg Tablet,Delayed Release (Dr/Ec) 40 mg PO QAM Qty: 30 0RF lisinopril 5 mg Tablet 5 mg PO QAM Qty: 30 0RF aripiprazole [Abilify] 5 mg Tablet 5 mg PO QAM Qty: 30 0RF rosuvastatin 10 mg Tablet 10 mg PO QAM Qty: 30 0RF Referrals Referrals: Jennifer Jimenez DO [Primary Care Provider] - Discharge Problem: Hypothyroid Qualifiers: Hypothyroidism type: unspecified Qualified Code(s): E03.9 - Hypothyroidism, unspecified CHF (congestive heart failure) Qualifiers: Heart failure type: unspecified Heart failure chronicity: acute Qualified Code(s): I50.9 - Heart failure, unspecified Hypertension Qualifiers: Hypertension type: unspecified Qualified Code(s): I10 - Essential (primary) hypertension
[2025-04-24 17:16] LABS: Hematocrit (blood only) 39.7 % (42.0-52.0); Hemoglobin 13.1 g/dl (14.0-18.0); Immature Granulocytes # (auto) 0.01 K/uL (0.01-0.20); Immature Granulocytes % (auto) 0.2 %; Mean Corpuscular Hemoglobin 26.1 pg (25.0-34.0); Mean Corpuscular Volume 79.2 fL (80.0-100.0); Platelet Count 188 K/uL (130-400); RDW Standard Deviation 39.2 fL (36.4-46.3); Red Blood Count 5.01 M/uL (4.70-6.10); White Blood Count 5.82 K/ul (4.8-10.8)
--- NOTE | 2025-04-24 17:17 | XRay Report ---
Chest radiograph, one view History: Dyspnea Comparison: None Findings: Single AP view of the chest performed. No focal consolidation or pleural effusion. No pneumothorax. The cardiomediastinal silhouette is within normal limits. Normal pulmonary vascularity. No evidence for lymphadenopathy. No visualized bony or soft tissue abnormality. Impression: Normal chest radiograph Electronically signed by Martinez Dugan 04-24-2025 5:14 PM
[2025-04-24 17:36] LABS: Alanine Aminotransferase 5 U/L (7-52); Albumin Globulin Ratio 1.4 (0.9-2); Alkaline Phosphatase 63 U/L (34-104); Anion Gap 8 (3-11); Bilirubin,Total 0.7 mg/dl (0.2-1.0); Blood Urea Nitrogen 11 mg/dl (6-23); Calcium 8.7 mg/dl (8.6-10.3); Carbon Dioxide 22 mmol/L (21-32); Chloride 105 mmol/L (98-107); Globulin 2.8 gm/dl (2.5-4.0); Glucose 249 mg/dl (70-99(Fasting)); Magnesium 2.0 mg/dl (1.7-2.4); Potassium 3.9 mmol/L (3.5-5.1); Sodium 135 mmol/L (136-145); Total Protein 6.6 gm/dl (6.0-8.3)
[2025-04-24 17:49] LABS: INR 1.2 (0.9-1.1); Partial Thromboplastin Time 27 Seconds (21-31); Prothrombin Time 12.5 Seconds (9.0-12.0)
[2025-04-24 17:51] LABS: Thyroid Stimulating Hormone 28.029 uIu/ml (0.300-4.500)
--- NOTE | 2025-04-24 18:01 | CT Scan Report ---
EXAMINATION: Head CT without CLINICAL HISTORY: Dizzy PRIORS: MR 01/06/2025 TECHNIQUE: Contiguous axial images were obtained through the head without the use of intravenous contrast. Sagittal and coronal reformations are supplied. FINDINGS: Motion artifact degrades image quality. Mild parenchymal volume loss noted. Moderate to advanced periventricular lucency, likely representing small vessel occlusive disease. Loss of rouse-white differentiation present in the right frontal lobe, unchanged. Rouse-white differentiation is preserved. No edema or midline shift. No intra-axial or extra-axial hemorrhage. Ventricles are normal in size and configuration. Brainstem and cerebellum have a normal appearance. Calvarium unremarkable. Mild right maxillary sinus mucosal thickening, unchanged. Mastoid air cells are well-pneumatized. Globes are intact. No retrobulbar abnormality. IMPRESSION: 1. No CT evidence of an acute intracranial abnormality. If clinical concern warrants, brain MRI could be considered. Electronically signed by Barbie Hughes 04-24-2025 6:01 PM
[2025-04-24] MEDS: FUROSEMIDE 40 MG/4 ML VIAL IV ONE (19:33)
[2025-04-24 20:29] LABS: Appearance Urine Clear (Clear); Bacteria Urine Automated None Seen (None Seen); Cast Urine Automated 0-2 /lpf (0-2); Epithelial Cell Urine Auto 0-2 /hpf (0-2); Glucose Urine UA Negative (Negative); RBC Urine Automated 0-2 /hpf (0-2); WBC Urine Automated 0-5 /hpf (0-5)
--- NOTE | 2025-04-24 20:37 | History & Physical Report ---
Date of Service April 24, 2025 Assessment & Plan (1) Chest pain: Plan: Assessment and plan below following discussion of case with ED provider and reviewing patient history/pertinent normal/abnormal diagnostic test results. Chest pain Relieved by nitroglycerin Rule out ACS chronic systolic heart failure EF (40 to 45%, TTE 2024), patient euvolemic mild MR hypertension, stable hyperlipidemia, supposedly on statin Rx CHARLEEN CPAP intolerance hx CVA DM2 insulin requiring, well-controlled as of recent hemoglobin A1c of 6.18 January 2025 hypothyroidism, TSH markedly elevated secondary to noncompliance chronic anemia, hemoglobin at baseline Severe depression with suicidality And rectal dysfunction, recurrent falls OBS Admit to PCU Facilitate aspirin for secondary CAD prevention Follow troponin Cardiology consult re: chest pain N.p.o. in anticipation of ischemic procedure Psych consult re: suicidality, severe depression Suicide precautions for now Continue current levothyroxine dose, recheck TSH outpatient after 6 weeks Basal bolus insulin, ISS BG goal 1 10-1 40, carb count coverage PT OT eval in a.m. DVT prophylaxis. Lovenox subcu DNR Patient brother requesting updates providers. Mr. Jose Corbin, contact #[phone]. Text document was generated using [employer] voice recognition software. It may contain grammatical or spelling errors. Kindly contact undersigned for clarification of any documentation item in question. History of Present Illness Chief Complaint: Chest pain, recurrent falls Primary Care Provider: Jennifer Jimenez DO History obtained from patient, family, and records. Medical history significant for chronic systolic heart failure EF (40 to 45%, TTE 2024), mild MR, hypertension, hyperlipidemia, CHARLEEN CPAP intolerance, CVA, DM2 insulin requiring, hypothyroidism, chronic anemia (baseline hemoglobin of 13), anxiety/mood disorder, medication noncompliance. Last confinement December 2024 for recurrent falls and laboratory dysfunction patient discharged to [facility] facility where he stayed for a week before going home. Patient also seen by psychiatry during confinement for depression/suicidality. No indication for inpatient psychiatry at time of admission. Outpatient specialists follow-up recommended following discharge from rehab. Patient stopped taking home medications shortly after discharge from rehab. Worsening depression and recurrent suicidal thoughts attributed to demise. Patient with increasing weakness over the last few days. Feeling weak and off balance. 2 days ago patient experienced achy substernal pain with some SOB. No cough symptoms. No fluid retention. Patient has actually lost weight as per her account. Patient brought to ER for evaluation. Chest pain relieved by nitroglycerin. Medical History as above Surgical History : Strabismus surgery, dental surgery Family History : Asthma, DM, CHARLEEN Personal/Social history : Non-smoker, occasional EtOH intake, currently unemployed Allergies Allergy/AdvReac Type Severity Reaction Status Date / Time Penicillins Allergy Severe 1969--ANAPH Verified 04/24/25 17:50 YLAXIS doxycycline Allergy Intermediate HIVES Verified 04/24/25 17:50 Macrolide Antibiotics Allergy Unknown UNKNOWN Verified 04/24/25 17:50 morphine AdvReac Intermediate GI UPSET Verified 04/24/25 17:50 Home Medications Medication Instructions Recorded Confirmed Type levothyroxine 175 mcg tablet 175 mcg PO DAILYBB 01/05/25 04/24/25 History nitroglycerin 0.4 mg sublingual 0.4 mg sublingual DIRECTED PRN 01/05/25 04/24/25 History tablet (Nitrostat) Chest Pain sertraline 50 mg tablet 150 mg PO QAM 01/05/25 04/24/25 History aripiprazole 5 mg tablet (Abilify) 5 mg PO QAM #30 tabs 01/09/25 04/24/25 Rx lisinopril 5 mg tablet 5 mg PO QAM #30 tabs 01/09/25 04/24/25 Rx pantoprazole 40 mg tablet,delayed 40 mg PO QAM #30 tabs 01/09/25 04/24/25 Rx release rosuvastatin 10 mg tablet 10 mg PO QAM #30 tabs 01/09/25 04/24/25 Rx Lactobacillus acidophilus 10 10,000 mmu cells PO DAILY 04/24/25 04/24/25 History billion cell capsule (Probiotic) acetaminophen 650 mg 650 mg PO Q8H PRN Pain 04/24/25 04/24/25 History tablet,extended release aspirin 81 mg tablet,delayed 81 mg PO QAM 04/24/25 04/24/25 History release clobetasol 0.05 % topical ointment 1 applic topical BID PRN APPLY TO 04/24/25 04/24/25 History FEET DIRECTED clotrimazole 1 % topical cream 1 applic topical TID PRN AFFECTED 04/24/25 04/24/25 History AREAS cyanocobalamin (vitamin B-12) 1,000 mcg PO DAILY 04/24/25 04/24/25 History 1,000 mcg tablet (Vitamin B-12) fluoxetine 40 mg capsule 40 mg PO QAM 04/24/25 04/24/25 History insulin glargine 100 unit/mL (3 40 unit subcut HS 04/24/25 04/24/25 History mL) subcutaneous pen (Lantus Solostar U-100 Insulin) isosorbide mononitrate 30 mg 30 mg PO DAILY 04/24/25 04/24/25 History tablet,extended release 24 hr meloxicam 7.5 mg tablet 7.5 mg PO QAM 04/24/25 04/24/25 History metformin 500 mg tablet,extended 500 mg PO DIRECTED 04/24/25 04/24/25 History release 24 hr metoprolol succinate 50 mg 50 mg PO DAILY 04/24/25 04/24/25 History tablet,extended release 24 hr nystatin 100,000 unit/gram topical 1 applic topical TID PRN APPLY TO 04/24/25 04/24/25 History powder SCROTUM NEEDED tamsulosin 0.4 mg capsule (Flomax) 0.4 mg PO DAILY 04/24/25 04/24/25 History triamcinolone acetonide 0.1 % 1 applic topical BID PRN SKIN 04/24/25 04/24/25 History topical cream IRRITATIONS Past Med/Surg History Problem List (Updated 04/24/25 @ 19:14 by Rolando Suarez MD) Nonadherence to medication (Acute) Weakness (Acute) Hypertension (Acute) CHF (congestive heart failure) (Acute) Hypothyroid (Acute) SOB (shortness of breath) (Acute) Recurrent falls Urinary retention Oliguria Ambulatory dysfunction Knee pain Fall (Acute) Weakness (Acute) COVID-19 virus infection Dyspnea on minimal exertion (Acute) CHF (congestive heart failure) (Acute) COVID-19 (Acute) Acute hypoxemic respiratory failure Non-ST elevation [place] (NSTEMI) (Acute) Phlegmonous cellulitis Hyponatremia (Acute) History of CVA (cerebrovascular accident) Morbid obesity DM2 (diabetes mellitus, type 2) Cellulitis (Acute) Depression HTN (hypertension) CHF (congestive heart failure) Morbid obesity with BMI of 50.0-59.9, adult Pancreatitis Cholangitis concurrent with and due to calculus of gallbladder Hyperlipidemia, unspecified Hypothyroidism, unspecified Obstructive sleep apnea (adult) (pediatric) Unspecified cerebral artery occlusion with cerebral infarction Medical History Bilateral knee pain Hypertension Diabetes Social History Smoking Status: Never smoker Hx Alcohol Use: No Hx Substance Use: No Preferred Language: [place]ian Communication Ability: Effective Chicken Tender Required: No Beliefs That Will Affect Care: None Current Living Situation: Alone Current Living Situation Comment: home alone Other Information That Helps Us Care for You: Yes ( yr 1999) Feels Safe at Home: Yes Safety Concerns: Feels Safe At This Time Gender Identity: Male Assistive Devices: Cane, Denture - Upper, Denture - Lower, Glasses and Walker Review of Systems Review of Systems: As per HPI, all other systems reviewed and negative Physical Exam Physical Exam: GENERAL: Comfortable, obese, no respiratory distress SKIN: Normal color, warm HEENT: Alopecia, [place] palpebral conjunctivae, no ptosis, dry buccal mucosa NECK : Supple, no tenderness CHEST : Decreased breath sounds, no tenderness HEART : RRR, no obvious murmurs ABDOMEN: Some distention, nontender EXTREMITIES : Minimal LE swelling, no LE tenderness, no other conspicuous deformities noted NEUROLOGIC : Coherent, no facial asymmetry, gait and stance not assessed Results & Data Results & Data Vital Signs (Past 12 Hours) Vital Signs Temp Pulse Pulse Resp BP BP Pulse Ox 04/24/25 20:23 84 04/24/25 20:00 75 22 138/103 H 96 04/24/25 19:00 18 142/87 H 98 04/24/25 18:30 60 18 142/87 H 94 04/24/25 16:41 88 04/24/25 16:39 98 04/24/25 16:25 36.6 C 82 18 127/93 98 O2 Del Method O2 Flow Rate 04/24/25 20:23 04/24/25 20:00 04/24/25 19:00 04/24/25 18:30 Room Air 04/24/25 16:41 04/24/25 16:39 Room Air 0 04/24/25 16:25 Room Air Laboratory Results Laboratory Results WBC 5.82 K/ul (4.8-10.8) 04/24/25 17:08 RBC 5.01 M/uL (4.70-6.10) 04/24/25 17:08 Hgb 13.1 g/dl (14.0-18.0) L 04/24/25 17:08 Hct 39.7 % (42.0-52.0) L 04/24/25 17:08 MCV 79.2 fL (80.0-100.0) L 04/24/25 17:08 MCH 26.1 pg (25.0-34.0) 04/24/25 17:08 MCHC 33.0 g/dL (32.0-36.0) 04/24/25 17:08 RDW Std Deviation 39.2 fL (36.4-46.3) 04/24/25 17:08 RDW Coeff of Oziel 13.7 % (11.5-14.5) 04/24/25 17:08 Plt Count 188 K/uL (130-400) 04/24/25 17:08 MPV 9.9 fL (9.4-12.4) 04/24/25 17:08 Immature Gran % (Auto) 0.2 % 04/24/25 17:08 Neut % (Auto) 73.9 % 04/24/25 17:08 Lymph % (Auto) 17.5 % 04/24/25 17:08 [place] % (Auto) 3.6 % 04/24/25 17:08 Eos % (Auto) 3.6 % 04/24/25 17:08 Baso % (Auto) 1.2 % 04/24/25 17:08 Neut # (Auto) 4.30 K/uL (1.40-6.50) 04/24/25 17:08 Lymph # (Auto) 1.02 K/uL (1.20-3.40) L 04/24/25 17:08 [place] # (Auto) 0.21 K/uL (0.11-0.59) 04/24/25 17:08 Eos # (Auto) 0.21 K/uL (0.00-0.50) 04/24/25 17:08 Baso # (Auto) 0.07 K/uL (0.00-0.20) 04/24/25 17:08 Immature Gran # (Auto) 0.01 K/uL (0.01-0.20) 04/24/25 17:08 PT 12.5 Seconds (9.0-12.0) H 04/24/25 17:08 INR 1.2 (0.9-1.1) H 04/24/25 17:08 APTT 27 Seconds (21-31) 04/24/25 17:08 PTT Ratio 1.0 04/24/25 17:08 Sodium 135 mmol/L (136-145) L 04/24/25 17:08 Potassium 3.9 mmol/L (3.5-5.1) 04/24/25 17:08 Chloride 105 mmol/L (98-107) 04/24/25 17:08 Carbon Dioxide 22 mmol/L (21-32) 04/24/25 17:08 Anion Gap 8 (3-11) 04/24/25 17:08 BUN 11 mg/dl (6-23) 04/24/25 17:08 Creatinine 1.29 mg/dl (0.6-1.4) 04/24/25 17:08 Est Cr Clr Drug Dosing Not Reportable 04/24/25 17:08 eGFR 64.27 04/24/25 17:08 BUN/Creatinine Ratio 8.5 (10-20) L 04/24/25 17:08 Glucose 249 mg/dl (70-99(Fasting)) H 04/24/25 17:08 Calcium 8.7 mg/dl (8.6-10.3) 04/24/25 17:08 Magnesium 2.0 mg/dl (1.7-2.4) 04/24/25 17:08 Total Bilirubin 0.7 mg/dl (0.2-1.0) 04/24/25 17:08 AST 8 U/L (13-39) L 04/24/25 17:08 ALT 5 U/L (7-52) L 04/24/25 17:08 Alkaline Phosphatase 63 U/L (34-104) 04/24/25 17:08 Troponin I High Sens 10.8 pg/ml (0-20) 04/24/25 17:08 B-Natriuretic Peptide 1299 pg/ml (0-100) H 04/24/25 17:08 Total Protein 6.6 gm/dl (6.0-8.3) 04/24/25 17:08 Albumin 3.8 gm/dl (3.4-5.0) 04/24/25 17:08 Globulin 2.8 gm/dl (2.5-4.0) 04/24/25 17:08 Albumin/Globulin Ratio 1.4 (0.9-2) 04/24/25 17:08 TSH 28.029 uIu/ml (0.300-4.500) H 04/24/25 17:08 Free T4 0.39 ng/dl (0.61-1.60) L 04/24/25 17:08 Urine Color Yellow 04/24/25 20:08 Urine Appearance Clear (Clear) 04/24/25 20:08 Urine pH 5.5 (4.5-7.5) 04/24/25 20:08 Ur Specific [place] 1.012 (1.000-1.030) 04/24/25 20:08 Urine Protein 1+ (Negative) H 04/24/25 20:08 Urine Glucose (UA) Negative (Negative) 04/24/25 20:08 Urine Ketones Negative (Negative) 04/24/25 20:08 Urine Blood Negative (Negative) 04/24/25 20:08 Urine Nitrite Negative (Negative) 04/24/25 20:08 Urine Bilirubin Negative (Negative) 04/24/25 20:08 Urine Urobilinogen Negative (Negative) 04/24/25 20:08 Ur Leukocyte Esterase Negative (Negative) 04/24/25 20:08 Urine WBC (Auto) 0-5 /hpf (0-5) 04/24/25 20:08 Urine RBC (Auto) 0-2 /hpf (0-2) 04/24/25 20:08 U Hyaline Cast (Auto) 0-2 /lpf (0-2) 04/24/25 20:08 U Epithel Cells (Auto) 0-2 /hpf (0-2) 04/24/25 20:08 Urine Bacteria (Auto) None Seen (None Seen) 04/24/25 20:08 Urine Comment 04/24/25 20:08 Impressions Chest X-Ray 04/24/25 16:37 Chest radiograph, one view History: Dyspnea Comparison: None Findings: Single AP view of the chest performed. No focal consolidation or pleural effusion. No pneumothorax. The cardiomediastinal silhouette is within normal limits. Normal pulmonary vascularity. No evidence for lymphadenopathy. No visualized bony or soft tissue abnormality. Impression: Normal chest radiograph Electronically signed by Martinez Dugan 04-24-2025 5:[address] 04/24/25 16:38 EXAMINATION: Head CT without CLINICAL HISTORY: Dizzy PRIORS: MR 01/06/2025 TECHNIQUE: Contiguous axial images were obtained through the head without the use of intravenous contrast. Sagittal and coronal reformations are supplied. FINDINGS: Motion artifact degrades image quality. Mild parenchymal volume loss noted. Moderate to advanced periventricular lucency, likely representing small vessel occlusive disease. Loss of rouse-white differentiation present in the right frontal lobe, unchanged. Rouse-white differentiation is preserved. No edema or midline shift. No intra-axial or extra-axial hemorrhage. Ventricles are normal in size and configuration. Brainstem and cerebellum have a normal appearance. Calvarium unremarkable. Mild right maxillary sinus mucosal thickening, unchanged. Mastoid air cells are well-pneumatized. Globes are intact. No retrobulbar abnormality. IMPRESSION: 1. No CT evidence of an acute intracranial abnormality. If clinical concern warrants, brain MRI could be considered. Electronically signed by Barbie Hughes 04-24-2025 6:01 PM Diagnostic Findings EKG as per my interpretation :Rate 90, NSR, LAD, LAFB, 1 AVB, inferior and septal infarcts, nonspecific T abnormalities, low voltage (1) Chest pain Chest pain type: unspecified Qualified Code(s): R07.9 - Chest pain, unspecified
[2025-04-24] MEDS ORDERED: PROMETHAZINE 6.25 MG/50.25 ML BAG IV PRN (20:56)
[2025-04-24] MEDS ORDERED: MoRPHine SULFATE 4 MG/ML 1 ML CARP\\VIAL IV PRN (20:56)
[2025-04-24] MEDS: NITROGLYCERIN SL 0.4 MG/TAB TAB SL STA (21:02)
[2025-04-24] MEDS: ASPIRIN 81 MG ECTAB PO STA (22:04)
[2025-04-24] MEDS: LANTUS PER UNIT CHARGE SQ STA (22:04)
[2025-04-24] MEDS ORDERED: DEXTROSE 50% 50 ML SYRINGE IV PRN (22:32)
[2025-04-24] MEDS ORDERED: GLUCAGON FOR INJ 1 MG VIAL SQ PRN (22:32)
[2025-04-24] MEDS ORDERED: CARBOHYDRATES FOR HYPOGLYCEMIA PO PRN (22:32)
[2025-04-24] MEDS ORDERED: GLUCOSE 10 TAB/TUBE PO PRN (22:32)
[2025-04-24] MEDS ORDERED: GLUCOSE 40% GEL 15 GM TUBE PO PRN (22:32)
[2025-04-24] MEDS: INSULIN ASPART PER UNIT CHARGE SC SCH (22:59)
[2025-04-25] MEDS: SODIUM CHLORIDE 0.9% 1,000 ML IV ONE (00:26)
[2025-04-25] MEDS: LEVOTHYROXINE SODIUM 175 MCG TABLET PO SCH (06:29)
[2025-04-25 06:49] LABS: Hematocrit (blood only) 39.8 % (42.0-52.0); Hemoglobin 12.8 g/dl (14.0-18.0); Immature Granulocytes # (auto) 0.01 K/uL (0.01-0.20); Immature Granulocytes % (auto) 0.2 %; Mean Corpuscular Hemoglobin 25.8 pg (25.0-34.0); Mean Corpuscular Volume 80.1 fL (80.0-100.0); Platelet Count 196 K/uL (130-400); RDW Standard Deviation 38.7 fL (36.4-46.3); Red Blood Count 4.97 M/uL (4.70-6.10); White Blood Count 6.22 K/ul (4.8-10.8)
[2025-04-25 07:08] LABS: Anion Gap 8.0 (3-11); Blood Urea Nitrogen 11.0 mg/dl (6-23); Calcium 8.8 mg/dl (8.6-10.3); Carbon Dioxide 27.0 mmol/L (21-32); Chloride 103.0 mmol/L (98-107); Cholesterol 204.0 mg/dl (0-200); Creatinine Clr Calc Pharmacy 63.0 ml/min; Glucose 138.0 mg/dl (70-99(Fasting)); HDL Cholesterol 24.0 mg/dl; Potassium 3.6 mmol/L (3.5-5.1); Sodium 138.0 mmol/L (136-145); Triglycerides 86.0 mg/dl (0-150)
[2025-04-25 07:19] LABS: Partial Thromboplastin Time 31 Seconds (21-31)
--- NOTE | 2025-04-25 08:49 | Cardiology Consultation ---
Date of Consultation April 25, 2025 Assessment & Plan (1) CAD (coronary artery disease): (2) Nonadherence to medication: (3) Hypertension: (4) Heart failure with reduced ejection fraction (HFrEF): (5) Weakness: Plan Patient is a complex 60 year old male admitted with weakness, ambulatory dysfunction, chest pain/pressure with history of coronary artery disease per cath in February 2024. At that time, he was found to have multivessel CAD and surgical revascularization was recommended. However he had poor surgical targets and med management recommended. Patient has a long history of depression/suicidal ideation and non compliance with medications. Apparently he stopped all of his oral medications several months ago. Since that time, patient reported intermittent chest pain/pressure, occurring at rest or with walking. Since admission, he has had HS troponin negative x3. EKG demonstrating sinus with 1st degree AV block and T wave inversion in lateral leads, stable from prior EKG's. Echo ordered and pending. Recommend continuing medical management for ongoing coronary artery disease. Resume ASA 81 mg daily, metoprolol succinate 50 mg daily, rosuvastatin, isosorbide 30 mg daily, and lisinopril. these were prior home medications. He was treated yesterday with one dose IV lasix 40 mg with good urine output. Appears euvolemic currently Consider low dose loop diuretic and/or spironolactone as well. Could titrate isosorbide if needed pending anginal complaints. Recommend psych evaluation for suicidal ideations. He has been following with neurology for ongoing weakness and ambulatory dysfunction. This was thought to be related to his DDD/spinal stenosis. At this time, would not recommend further invasive cardiac testing. Will monitor patient as he is resumed on his oral medications. Case discussed with Dr. Mae I spent a total of 60 minutes on the date of service in preparation, delivery, and documentation of the care provided to this patient, excluding any time spent in the performance of separately billed services. Bing Oconnor PA-C Department of Cardiology, [facility] This chart was completed in part utilizing Speech Voice Recognition Software. Grammatical errors, random word insertions, pronoun errors, and incomplete sentences are an occasional consequence of this system due to software limitations, ambient noise, and hardware issues. Any formal questions or concerns about the content, text, or information contained within the body of this dictation should be directly addressed to the provider for clarification. Supervising Physician Co-Signing Physician Notes I have personally performed a history and physical examination on the patient. I have reviewed the advance practitioner's documentation, and I agree with, and take responsibility for the plan of care. 60-year-old male presenting with weakness, possible chest discomfort, chronic heart failure with reduced ejection fraction, multivessel coronary artery disease and nonadherence to medications. Although chest discomfort reported per admission notes, he denies any chest discomfort upon my assessment. No orthopnea, PND, or lower extremity edema. Resting 2D transthoracic echocardiogram demonstrates severe LV systolic dysfunction with evidence of left atrial left ventricular apical thrombus. This is a new finding compared to prior echocardiogram earlier this year. His high-sensitivity troponins are not significantly elevated. Prior cardiac catheterization films reviewed demonstrating severe multivessel coronary disease, deemed inoperable per prior cardiology notes. Coronary vessels are poor talk targets for intervention or bypass surgery. Patient been off all cardiovascular meds for approximately 3 months prior to presentation. Recommendations: * Initiate anticoagulation with IV heparin. * Transition to warfarin versus Eliquis during hospitalization. * Case management consultation to determine cost effectiveness of Eliquis. * Restart GDMT as tolerated. * Medical management of chronic multivessel coronary disease. * Reviewed importance of compliance with medical therapies. I spent a total of 40 minutes on the date of service in preparation, delivery, and documentation of the care provided to this patient, excluding any time spent in the performance of separately billed services. Markell Mae DO, [facility] History of Present Illness Reason for Consultation: Chest pain Requesting Physician: Antoinette Esposito Attending Physician: Dr. Mae History of Present Illness Patient is a 60 year old male who presented to [facility] with complaints of weakness, ambulatory dysfunction, frequent falls, and intermittent epigastric/substernal "pressure" that has been present intermittently for the last few months. Patient also reports suicidal ideations on admission. Long history of depression and suicidal thoughts. Followed by psych closely. He has been following with neurology for persistent left sided weakness for many years, worsening since stroke in 2007. Recent Brain MRI was without acute findings. He had a MRI of the spine with findings of DDD and spinal stenosis. Last year patient was admitted with weakness and intermittent chest pain. Found to have abnormal EKG with T wave abnormality in the inferior and lateral leads, concerning for ischemia. HS troponin was also elevated at 1225. During admission he had brief episodes of 2nd degree Type II AV block and sinus bradycardia with 3 second pause overnight. He subsequently underwent cardiac cath during admission on 03/09/24 demonstrating severe multivessel coronary artery disease that was felt to have poor surgical targets. Echo revealed LVEF 40-45% with large apical, inferior, and posterior wall motion abnormality. He was started on appropriate medical therapies upon that discharge, however per outpatient notes patient repeatedly stopped all medications. Most recently, patient stopped medications 1 week after last admission in December 2024. Upon admission to [facility] yesterday, for weakness and intermittent chest pain, HS troponin negative x3. EKG demonstrated NSR with 1st degree AV block and anterolateral T wave inversions, similar to past EKG's. Patient reports chest pressure occurs at rest or with exertion. He is not the best historian. He admits to not taking his medications for several months. Currently he is resting in bed. He was sleeping upon entering. No acute distress. He reports ongoing chest "pressure", somewhat reproducible upon palpation to the epigastric region. No dizziness. He notes generalized weakness. No SOB at rest. He reports his legs are always swollen. Apparently patient received dose of IV lasix. Edema improved today. Overall, he is not the best historian. History includes: 1. coronary artery disease - Cath in February 2024 --Deemed poor targets for revascularization and med management recommended at that time LAD (% Stenosis): Proximal (30), Mid (80,90,90) and Distal (Thin) D1 (% Stenosis): Proximal (90) Circumflex (% Stenosis): Proximal (80) and Mid (90.90) RCA (% Stenosis): Proximal (Serial 30%), Mid (Diffuse disease) and Distal (100% acute margin) 2. Obesity 3. Prior right thalmic stroke in 2007 4. DM type II 5. non compliant with medications 6. Depression/suicidal Allergies Allergy/AdvReac Type Severity Reaction Status Date / Time Penicillins Allergy Severe 1969--ANAPH Verified 04/24/25 17:50 YLAXIS doxycycline Allergy Intermediate HIVES Verified 04/24/25 17:50 Macrolide Antibiotics Allergy Unknown UNKNOWN Verified 04/24/25 17:50 morphine AdvReac Intermediate GI UPSET Verified 04/24/25 17:50 Home Medications Medication Instructions Recorded Confirmed Type levothyroxine 175 mcg tablet 175 mcg PO DAILYBB 01/05/25 04/24/25 History nitroglycerin 0.4 mg sublingual 0.4 mg sublingual DIRECTED PRN 01/05/25 04/24/25 History tablet (Nitrostat) Chest Pain sertraline 50 mg tablet 150 mg PO QAM 01/05/25 04/24/25 History aripiprazole 5 mg tablet (Abilify) 5 mg PO QAM #30 tabs 01/09/25 04/24/25 Rx lisinopril 5 mg tablet 5 mg PO QAM #30 tabs 01/09/25 04/24/25 Rx pantoprazole 40 mg tablet,delayed 40 mg PO QAM #30 tabs 01/09/25 04/24/25 Rx release rosuvastatin 10 mg tablet 10 mg PO QAM #30 tabs 01/09/25 04/24/25 Rx Lactobacillus acidophilus 10 10,000 mmu cells PO DAILY 04/24/25 04/24/25 History billion cell capsule (Probiotic) acetaminophen 650 mg 650 mg PO Q8H PRN Pain 04/24/25 04/24/25 History tablet,extended release aspirin 81 mg tablet,delayed 81 mg PO QAM 04/24/25 04/24/25 History release clobetasol 0.05 % topical ointment 1 applic topical BID PRN APPLY TO 04/24/25 04/24/25 History FEET DIRECTED clotrimazole 1 % topical cream 1 applic topical TID PRN AFFECTED 04/24/25 04/24/25 History AREAS cyanocobalamin (vitamin B-12) 1,000 mcg PO DAILY 04/24/25 04/24/25 History 1,000 mcg tablet (Vitamin B-12) fluoxetine 40 mg capsule 40 mg PO QAM 04/24/25 04/24/25 History insulin glargine 100 unit/mL (3 40 unit subcut HS 04/24/25 04/24/25 History mL) subcutaneous pen (Lantus Solostar U-100 Insulin) isosorbide mononitrate 30 mg 30 mg PO DAILY 04/24/25 04/24/25 History tablet,extended release 24 hr meloxicam 7.5 mg tablet 7.5 mg PO QAM 04/24/25 04/24/25 History metformin 500 mg tablet,extended 500 mg PO DIRECTED 04/24/25 04/24/25 History release 24 hr metoprolol succinate 50 mg 50 mg PO DAILY 04/24/25 04/24/25 History tablet,extended release 24 hr nystatin 100,000 unit/gram topical 1 applic topical TID PRN APPLY TO 04/24/25 04/24/25 History powder SCROTUM NEEDED tamsulosin 0.4 mg capsule (Flomax) 0.4 mg PO DAILY 04/24/25 04/24/25 History triamcinolone acetonide 0.1 % 1 applic topical BID PRN SKIN 04/24/25 04/24/25 History topical cream IRRITATIONS Patient History Medical History Bilateral knee pain Hypertension Diabetes Social History Smoking Status: Never smoker Hx Alcohol Use: No Hx Substance Use: No Preferred Language: German Communication Ability: Effective [employer] Control Technician Required: No Beliefs That Will Affect Care: None Current Living Situation: Alone Current Living Situation Comment: home alone Other Information That Helps Us Care for You: Yes ( yr 1999) Feels Safe at Home: Yes Safety Concerns: Feels Safe At This Time Gender Identity: Male Assistive Devices: Cane and Walker Review of Systems Review of Systems: All systems reviewed & are unremarkable except as noted in HPI & below Physical Exam Constitutional: WD/WN, vitals as above + obese; no acute distress Neck: + thick neck Respiratory: no labored breathing and no cough Cardiovascular: Rate/Rhythm: regular rate and regular rhythm Heart Sounds: no murmur (distant heart sounds) Extremities: no edema Gastrointestinal (Abdomen): Inspection/Auscultation: abdomen normal to inspection Percussion/Palpation: + abdomen tender (mild tenderness in epigastric region) and abdomen soft Neurologic: PERRL, EOMI, accommodation nl, no face palsy, no dysarthria Results & Data Vital Signs (Past 12 Hours) Vital Signs Temp Pulse Pulse Resp BP BP Pulse Ox 04/25/25 07:43 65 04/25/25 07:14 64 17 121/85 98 04/25/25 04:00 36.5 C 77 18 124/70 95 04/24/25 22:59 79 04/24/25 22:42 36.4 C L 81 18 127/74 100 04/24/25 22:30 04/24/25 21:33 60 25 H 97 04/24/25 21:31 64 134/97 98 04/24/25 21:21 69 22 144/90 H 98 04/24/25 21:21 61 20 144/90 H 94 04/24/25 21:08 78 20 138/91 97 04/24/25 21:03 36.8 C 77 16 129/99 95 O2 Del Method 04/25/25 07:43 04/25/25 07:14 Room Air 04/25/25 04:00 Room Air 04/24/25 22:59 04/24/25 22:42 Room Air 04/24/25 22:30 Room Air 04/24/25 21:33 04/24/25 21:31 04/24/25 21:21 04/24/25 21:21 Room Air 04/24/25 21:08 04/24/25 21:03 Room Air Laboratory Results Cardiac Enzymes 04/24/25 04/24/25 04/25/25 Range/Units 17:08 22:44 06:24 AST 8 L (13-39) U/L Troponin I High Sens 10.8 11.5 12.2 (0-20) pg/ml B-Natriuretic Peptide 1299 H (0-100) pg/ml Coagulation 04/24/25 04/25/25 Range/Units 17:08 06:24 PT 12.5 H (9.0-12.0) Seconds APTT 27 31 (21-31) Seconds B-Natriuretic Peptide 1299 H (0-100) pg/ml Lipids 04/25/25 Range/Units 06:24 Triglycerides 86 (0-150) mg/dl Cholesterol 204 H (0-200) mg/dl HDL Cholesterol 24 mg/dl Cholesterol/HDL Ratio 8.5 H (0-5) CBC 04/24/25 04/25/25 Range/Units 17:08 06:24 WBC 5.82 6.22 (4.8-10.8) K/ul RBC 5.01 4.97 (4.70-6.10) M/uL Hgb 13.1 L 12.8 L (14.0-18.0) g/dl Hct 39.7 L 39.8 L (42.0-52.0) % Plt Count 188 196 (130-400) K/uL Neut # (Auto) 4.30 4.17 (1.40-6.50) K/uL Lymph # (Auto) 1.02 L 1.40 (1.20-3.40) K/uL [place] # (Auto) 0.21 0.24 (0.11-0.59) K/uL Eos # (Auto) 0.21 0.32 (0.00-0.50) K/uL Baso # (Auto) 0.07 0.08 (0.00-0.20) K/uL Comprehensive Metabolic Panel 04/24/25 04/25/25 Range/Units 17:08 06:24 Sodium 135 L 138 (136-145) mmol/L Potassium 3.9 3.6 (3.5-5.1) mmol/L Chloride 105 103 (98-107) mmol/L Carbon Dioxide 22 27 (21-32) mmol/L BUN 11 11 (6-23) mg/dl Creatinine 1.29 1.43 H (0.6-1.4) mg/dl Glucose 249 H 138 H (70-99(Fasting)) mg/dl Calcium 8.7 8.8 (8.6-10.3) mg/dl AST 8 L (13-39) U/L ALT 5 L (7-52) U/L Alkaline Phosphatase 63 (34-104) U/L Total Protein 6.6 (6.0-8.3) gm/dl Albumin 3.8 (3.4-5.0) gm/dl Intake and Output 04/24/25 04/25/25 04/25/25 22:59 06:59 14:59 Intake Total 150 / 150 Output Total 925 / 1175 250 / 1175 Balance -775 / -1025 -250 / -1025 Intake: Oral 150 / 150 Output: Urine 925 / 1175 250 / 1175 Other: # Unmeasured Voids 4 Weight 101.3 kg 102 kg Weight Measurement Method Built in Bedscale Built in [facility] Diagnostic Findings Telemetry reviewed: NSR in the 70-80's. No arrhythmias EKG reviewed from admission dated 04/24/25: NSR with 1st degree AV block. with T wave abnormality in anterolateral leads. Similar to past tracings EKG reviewed from this morning NSR with 1st degree AV block and T wave abnormality in lateral leads Chest X-Ray 04/24/25 16:37 Chest radiograph, one view Impression: Normal chest radiograph Electronically signed by Martinez Dugan 04-24-2025 5:[address] 04/24/25 16:38 IMPRESSION: 1. No CT evidence of an acute intracranial abnormality. If clinical concern warrants, brain MRI could be considered. Electronically signed by Barbie Hughes 04-24-2025 6:01 PM Prior data reviewed: Echocardiogram report reviewed dated 01/06/2025: LVEF mildly reduced at 40-45% Mild concentric LVH. Large sized apical, inferior and posterior wall motion abnormality with hypokinesis of the segments. Aortic valve sclerosis without stenosis. Mild MR. Diastolic dysfunction Cardiac catheterization report reviewed dated 03/09/2024: Coronary Anatomy Dominant: Right Left Main (% Stenosis): Normal LAD (% Stenosis): Proximal (30), Mid (80,90,90) and Distal (Thin) D1 (% Stenosis): Proximal (90) Circumflex (% Stenosis): Proximal (80) and Mid (90.90) RCA (% Stenosis): Proximal (Serial 30%), Mid (Diffuse disease) and Distal (100% acute margin) Medications Administered Current Inpatient Medications Aripiprazole (Aripiprazole 5 Mg Tab) 5 mg PO QAM [facility] Stop: 05/25/25 08:59 Last Admin: 04/25/25 09:00 Dose: 5 mg Aspirin (Aspirin 81 Mg Ectab) [facility] [place] [facility] [place]: 05/25/25 08:59 Last Admin: 04/25/25 09:02 Dose: 81 mg Cyanocobalamin (Cyanocobalamin (B-12) 500 Mcg Tablet) 1,000 mcg PO DAILY [facility] Stop: 05/25/25 08:59 Last Admin: 04/25/25 09:02 Dose: 1,000 mcg Dextrose (Dextrose 50% 50 Ml Syringe) 25 - 50 ml IV UD PRN; Protocol PRN Reason: Hypoglycemia Protocol Stop: 05/24/25 22:31 Enoxaparin Sodium (Enoxaparin Inj 40 Mg/0.4 Ml Syr) 40 mg SQ [facility] [place]: 05/25/25 08:59 Last Admin: 04/25/25 09:03 Dose: 40 mg Fluoxetine HCl (Fluoxetine Hcl 20 Mg Cap) 40 mg PO QAM [facility] Stop: 05/25/25 08:59 Last Admin: 04/25/25 09:01 Dose: 40 mg Glucagon (Glucagon For Inj 1 Mg Vial) 1 mg SQ UD PRN; Protocol PRN Reason: Hypoglycemia Protocol Stop: 05/24/25 22:31 Glucose (Glucose 40% Gel 15 Gm Tube) 15 - 30 gm PO UD PRN; Protocol PRN Reason: Hypoglycemia Protocol Stop: 05/24/25 22:31 Glucose (Glucose 10 Tab/Tube) 4 - 8 tab PO UD PRN; Protocol PRN Reason: Hypoglycemia Protocol Stop: 05/24/25 22:31 Hydroxyzine HCl (Hydroxyzine Hcl 10 Mg Tab) 10 mg PO QID PRN PRN Reason: Anxiety Stop: 05/24/25 20:56 Promethazine HCl (Phenergan) 6.25 mg in 50.25 mls @ 201 mls/hr IV Q6H PRN PRN Reason: Nausea And Vomiting Stop: 05/24/25 20:55 Sodium Chloride (Nss) 1,000 mls @ 50 mls/hr IV .Q20H ONE Stop: 04/25/25 19:53 Last Admin: 04/25/25 00:26 Dose: 50 mls/hr Insulin Aspart (Insulin Aspart Per Unit Charge) 0 units SC Q6 [facility] Stop: 05/24/25 22:44 Last Admin: 04/25/25 06:29 Dose: Not Given Insulin Glargine (Lantus Per Unit Charge) 5 units SQ HS [facility] Stop: 05/25/25 20:59 Isosorbide Mononitrate (Isosorbide [place] Extended Rel 30 Mg Tabcr) 30 mg PO DAILY [facility] Stop: 05/25/25 08:59 Last Admin: 04/25/25 09:00 Dose: 30 mg Lactobacillus Acidophilus (Advanced Probiotic 625 Mg Capsule) 1,250 mg PO DAILY [facility] Stop: 05/25/25 08:59 Last Admin: 04/25/25 09:00 Dose: 1,250 mg Levothyroxine Sodium (Levothyroxine Sodium 175 Mcg Tablet) 175 mcg PO DAILYBB [facility] Stop: 05/25/25 06:29 Last Admin: 04/25/25 06:29 Dose: 175 mcg Lisinopril (Lisinopril 5 Mg Tab) 5 mg PO QAM [facility] Stop: 05/25/25 08:59 Last Admin: 04/25/25 09:03 Dose: 5 mg Metoprolol Succinate (Metoprolol Succ 50mg Ext Rel Tab) 50 mg PO DAILY [facility] Stop: 05/25/25 08:59 Last Admin: 04/25/25 09:02 Dose: 50 mg Miscellaneous (Carbohydrates For Hypoglycemia ) 15 - 30 gm PO UD PRN PRN Reason: Hypoglycemia Protocol Stop: 05/24/25 22:31 Morphine Sulfate (Morphine Sulfate 4 Mg/Ml 1 Ml Carp\\Vial) 4 mg IV Q4H PRN PRN Reason: Pain Stop: 05/08/25 20:55 Oxycodone HCl (Oxycodone Hcl Ir 5 Mg Tab (Immediate Release)) 5 mg PO Q4H PRN PRN Reason: Pain Stop: 05/08/25 20:55 Pantoprazole Sodium (Pantoprazole 40 Mg Tab) 40 mg PO QAM [facility] Stop: 05/25/25 08:59 Last Admin: 04/25/25 09:02 Dose: 40 mg Rosuvastatin Calcium (Rosuvastatin Calcium 10 Mg Tab) 10 mg PO QAM [facility] Stop: 05/25/25 08:59 Last Admin: 04/25/25 09:00 Dose: 10 mg Sertraline HCl (Sertraline Hcl 50 Mg Tablet) 150 mg PO QAM [facility] Stop: 05/25/25 08:59 Last Admin: 04/25/25 09:00 Dose: 150 mg Tamsulosin HCl (Tamsulosin Hcl 0.4 Mg Cap) 0.4 mg PO DAILY [facility] Stop: 05/25/25 08:59 Last Admin: 04/25/25 09:01 Dose: 0.4 mg PG Care Time/CCT Total # of Minutes Spent Total Time Spent with Patient: Total time spent is greater than 50% in coordination of care (as documented) at patient's floor/unit and/or counseling patient: 90 minutes [place] [address] IN/OBS CONSULT LVL 5,80M Patient Type New Medical Decision Making High Complexity Diagnoses Coronary artery disease of [place] artery of [place] heart with stable angina pectoris I25.118 Associated angina: with stable angina Coronary Disease-Associated Artery/Lesion type: [place] artery [place] vs. transplanted heart: [place]q heart Nonadherence to medication Z91.148 Hypertension I10 Hypertension type: unspecified Heart failure with reduced ejection fraction (HFrEF) I50.20 Weakness R53.1 (1) CAD (coronary artery disease) Associated angina: with stable angina Coronary Disease-Associated Artery/Lesion type: [place] artery [place] vs. transplanted heart: [place]q heart Qualified Code(s): I25.118 - Atherosclerotic heart disease of [place] coronary artery with other forms of angina pectoris (3) Hypertension Hypertension type: unspecified Qualified Code(s): I10 - Essential (primary) hypertension
[2025-04-25] MEDS: ROSUVASTATIN CALCIUM 10 MG TAB PO SCH (09:00)
[2025-04-25] MEDS: ADVANCED PROBIOTIC 625 MG CAPSULE PO SCH (09:00)
[2025-04-25] MEDS ORDERED: LANTUS PER UNIT CHARGE SQ SCH (09:00)
[2025-04-25] MEDS: SERTRALINE HCL 50 MG TABLET PO SCH (09:00)
[2025-04-25] MEDS: ISOSORBIDE MONO EXTENDED REL 30 MG TABCR PO SCH (09:00)
[2025-04-25] MEDS: ARIPiprazole 5 MG TAB PO SCH (09:00)
[2025-04-25] MEDS: TAMSULOSIN HCL 0.4 MG CAP PO SCH (09:01)
[2025-04-25] MEDS: CYANOCOBALAMIN (B-12) 500 MCG TABLET PO SCH (09:02)
[2025-04-25] MEDS: ASPIRIN 81 MG ECTAB PO SCH (09:02)
[2025-04-25] MEDS: METOPROLOL SUCC 50MG EXT REL TAB PO SCH (09:02)
[2025-04-25] MEDS: ENOXAPARIN INJ 40 MG/0.4 ML SYR SQ SCH (09:03)
--- NOTE | 2025-04-25 11:09 | Electrocardiogram Report ---
Test Reason : Blood Pressure : */* mmHG Vent. Rate : 87 BPM Atrial Rate : 87 BPM P-R Int : 268 ms QRS Dur : 90 ms QT Int : 386 ms P-R-T Axes : -21 -7 69 degrees QTcB Int : 464 ms Sinus rhythm with 1st degree A-V block with Premature atrial complexes Low voltage QRS Poor R wave progression, consider anterior NE vs. lead placement vs. LVH Abnormal ECG When compared with ECG of 06-Jan-2025 05:32, Premature atrial complexes are now Present Confirmed by Michael Finney ([id number]) on 04/25/2025 11:09:01 AM Referred By: REFERRED SELF Confirmed By: Michael Finney
--- NOTE | 2025-04-25 11:18 | Hospitalist Progress Note ---
Date of Service April 25, 2025 Assessment & Plan (1) Chest pain: Plan: Chest pain Relieved by nitroglycerin in ED. Cardiology consult. S/P cardiac cath in 2023 on 03/09/24 demonstrating severe multivessel CAD demonstrating severe multivessel coronary artery disease that was felt to have poor surgical targets. Echo revealed LVEF 40-45% with large apical, inferior, and posterior wall motion abnormality. He was started on appropriate medical therapies upon that discharge, however per outpatient notes patient repeatedly stopped all medications. ACS ruled out Chronic systolic heart failure EF (40 to 45%, TTE 2024). He appears to be euvolemic at present Given one dose of IV lasix Pt is noncompliant with meds Restart ASA and other meds Watch I&O HTN Follow BPs HLD restart stain if he agrees CHARLEEN with CPAP intolerance Prior CVA left hemiparesis Follows with Neuro Had recent MRI DM2 insulin requiring, well-controlled as of recent hemoglobin A1c of 6.18 January 2025 Continue CCD HHD SSI if needed Hypothyroidism. TSH markedly elevated secondary to noncompliance Chronic anemia Hemoglobin at baseline Severe depression with suicidal ideations Consult psychiatry Suicide precautions Recurrent Falls PT OT consults DVT prophylaxis. Lovenox subcu DNR Patient brother requesting updates providers. Mr. Jose Corbin, contact #[phone]. I spent a total of 55 minutes coordinating, documenting and providing care for this patient with time spent in the performance of separately billed services. Admission and Anticipated Discharge Date Admission Date: April 24, 2025 Subjective Chart and data reviewed. Patient seen with 1: 1 sitter present. Patient seen at bedside. He denies any further chest pain. Labs are reviewed. No evidence of ACS. Review of Systems Review of Systems: Constitutional- no fever; no chills Eyes- no acute visual changes ENT- no sinus drainage; no pharyngitis Pulmonary- no cough, no wheezing, no shortness of breath Cardiac- no current chest pain, no palpitations, no orthopnea, no dependent edema GI- no nausea, no vomiting, no diarrhea, no melena, no hematochezia - no dysuria, no hematuria Musculoskeletal- no arthralgias, no myalgias Neuro- no headaches, no focal neurologic symptoms, chronic unilateral weakness post stroke Psych- extreme depression with suicidal thoughts since his spouse Physical Exam Physical Exam: General- adult male seen at bedside. Looks older than stated age, soft-spoken, flat affect Head- atraumatic Eyes- PERRL, EOMI, anicteric ENT- oropharynx clear Neck- supple, no JVD, no adenopathy, no thyromegaly; carotids +2/2, no bruits appreciated Lungs- clear to auscultation and percussion Heart- regular rhythm; no murmur, no gallop, no rub appreciated Abdomen- normal bowel sounds, soft, nontender, no masses or hepatosplenomegaly Extremities- no pretibial edema, no calf tenderness; peripheral pulses intact Neuro- alert, oriented x 3; PERRL, EOMI; Skin- warm & dry Results & Data Results & Data Vital Signs (Past 12 Hours) Vital Signs Temp Pulse Pulse Resp BP Pulse Ox O2 Del Method 04/25/25 09:27 Room Air 04/25/25 07:43 65 04/25/25 07:14 64 17 121/85 98 Room Air 04/25/25 04:00 36.5 C 77 18 124/70 95 Room Air Diagnostic Findings Laboratory Results WBC 6.22 K/ul (4.8-10.8) 04/25/25 06:24 RBC 4.97 M/uL (4.70-6.10) 04/25/25 06:24 Hgb 12.8 g/dl (14.0-18.0) L 04/25/25 06:24 Hct 39.8 % (42.0-52.0) L 04/25/25 06:24 MCV 80.1 fL (80.0-100.0) 04/25/25 06:24 MCH 25.8 pg (25.0-34.0) 04/25/25 06:24 MCHC 32.2 g/dL (32.0-36.0) 04/25/25 06:24 RDW Std Deviation 38.7 fL (36.4-46.3) 04/25/25 06:24 RDW Coeff of Oziel 13.6 % (11.5-14.5) 04/25/25 06:24 Plt Count 196 K/uL (130-400) 04/25/25 06:24 MPV 10.2 fL (9.4-12.4) 04/25/25 06:24 Immature Gran % (Auto) 0.2 % 04/25/25 06:24 Neut % (Auto) 67.0 % 04/25/25 06:24 Lymph % (Auto) 22.5 % 04/25/25 06:24 [place] % (Auto) 3.9 % 04/25/25 06:24 Eos % (Auto) 5.1 % 04/25/25 06:24 Baso % (Auto) 1.3 % 04/25/25 06:24 Neut # (Auto) 4.17 K/uL (1.40-6.50) 04/25/25 06:24 Lymph # (Auto) 1.40 K/uL (1.20-3.40) 04/25/25 06:24 [place] # (Auto) 0.24 K/uL (0.11-0.59) 04/25/25 06:24 Eos # (Auto) 0.32 K/uL (0.00-0.50) 04/25/25 06:24 Baso # (Auto) 0.08 K/uL (0.00-0.20) 04/25/25 06:24 Immature Gran # (Auto) 0.01 K/uL (0.01-0.20) 04/25/25 06:24 PT 12.5 Seconds (9.0-12.0) H 04/24/25 17:08 INR 1.2 (0.9-1.1) H 04/24/25 17:08 APTT 31 Seconds (21-31) 04/25/25 06:24 PTT Ratio 1.2 04/25/25 06:24 Sodium 138 mmol/L (136-145) 04/25/25 06:24 Potassium 3.6 mmol/L (3.5-5.1) 04/25/25 06:24 Chloride 103 mmol/L (98-107) 04/25/25 06:24 Carbon Dioxide 27 mmol/L (21-32) 04/25/25 06:24 Anion Gap 8 (3-11) 04/25/25 06:24 BUN 11 mg/dl (6-23) 04/25/25 06:24 Creatinine 1.43 mg/dl (0.6-1.4) H 04/25/25 06:24 Est Cr Clr Drug Dosing 63.0 ml/min 04/25/25 06:24 eGFR 56.80 04/25/25 06:24 BUN/Creatinine Ratio 7.7 (10-20) L 04/25/25 06:24 Glucose 138 mg/dl (70-99(Fasting)) H 04/25/25 06:24 POC Glucose 135 mg/dl (70-99) H 04/25/25 06:02 Calcium 8.8 mg/dl (8.6-10.3) 04/25/25 06:24 Magnesium 2.0 mg/dl (1.7-2.4) 04/24/25 17:08 Total Bilirubin 0.7 mg/dl (0.2-1.0) 04/24/25 17:08 AST 8 U/L (13-39) L 04/24/25 17:08 ALT 5 U/L (7-52) L 04/24/25 17:08 Alkaline Phosphatase 63 U/L (34-104) 04/24/25 17:08 Troponin I High Sens 12.2 pg/ml (0-20) 04/25/25 06:24 B-Natriuretic Peptide 1299 pg/ml (0-100) H 04/24/25 17:08 Total Protein 6.6 gm/dl (6.0-8.3) 04/24/25 17:08 Albumin 3.8 gm/dl (3.4-5.0) 04/24/25 17:08 Globulin 2.8 gm/dl (2.5-4.0) 04/24/25 17:08 Albumin/Globulin Ratio 1.4 (0.9-2) 04/24/25 17:08 Triglycerides 86 mg/dl (0-150) 04/25/25 06:24 Cholesterol 204 mg/dl (0-200) H 04/25/25 06:24 LDL Cholesterol, Calc 163 mg/dl 04/25/25 06:24 VLDL Cholesterol, Calc 17 mg/dl (0-30) 04/25/25 06:24 HDL Cholesterol 24 mg/dl 04/25/25 06:24 Cholesterol/HDL Ratio 8.5 (0-5) H 04/25/25 06:24 TSH 28.029 uIu/ml (0.300-4.500) H 04/24/25 17:08 Free T4 0.39 ng/dl (0.61-1.60) L 04/24/25 17:08 Urine Color Yellow 04/24/25 20:08 Urine Appearance Clear (Clear) 04/24/25 20:08 Urine pH 5.5 (4.5-7.5) 04/24/25 20:08 Ur Specific Oracle 1.012 (1.000-1.030) 04/24/25 20:08 Urine Protein 1+ (Negative) H 04/24/25 20:08 Urine Glucose (UA) Negative (Negative) 04/24/25 20:08 Urine Ketones Negative (Negative) 04/24/25 20:08 Urine Blood Negative (Negative) 04/24/25 20:08 Urine Nitrite Negative (Negative) 04/24/25 20: Urine Bilirubin Negative (Negative) 04/24/25 20:08 Urine Urobilinogen Negative (Negative) 04/24/25 20:08 Ur Leukocyte Esterase Negative (Negative) 04/24/25 20:08 Urine WBC (Auto) 0-5 /hpf (0-5) 04/24/25 20:08 Urine RBC (Auto) 0-2 /hpf (0-2) 04/24/25 20:08 U Hyaline Cast (Auto) 0-2 /lpf (0-2) 04/24/25 20:08 U Epithel Cells (Auto) 0-2 /hpf (0-2) 04/24/25 20:08 Urine Bacteria (Auto) None Seen (None Seen) 04/24/25 20:08 Urine Comment 04/24/25 20:08 Impressions Chest X-Ray 04/24/25 16:37 Chest radiograph, one view History: Dyspnea Comparison: None Findings: Single AP view of the chest performed. No focal consolidation or pleural effusion. No pneumothorax. The cardiomediastinal silhouette is within normal limits. Normal pulmonary vascularity. No evidence for lymphadenopathy. No visualized bony or soft tissue abnormality. Impression: Normal chest radiograph Electronically signed by Martinez Dugan 04-24-2025 5:[address] 04/24/25 16:38 EXAMINATION: Head CT without CLINICAL HISTORY: Dizzy PRIORS: MR 01/06/2025 TECHNIQUE: Contiguous axial images were obtained through the head without the use of intravenous contrast. Sagittal and coronal reformations are supplied. FINDINGS: Motion artifact degrades image quality. Mild parenchymal volume loss noted. Moderate to advanced periventricular lucency, likely representing small vessel occlusive disease. Loss of rouse-white differentiation present in the right frontal lobe, unchanged. Rouse-white differentiation is preserved. No edema or midline shift. No intra-axial or extra-axial hemorrhage. Ventricles are normal in size and configuration. Brainstem and cerebellum have a normal appearance. Calvarium unremarkable. Mild right maxillary sinus mucosal thickening, unchanged. Mastoid air cells are well-pneumatized. Globes are intact. No retrobulbar abnormality. IMPRESSION: 1. No CT evidence of an acute intracranial abnormality. If clinical concern warrants, brain MRI could be considered. Electronically signed by Barbie Hughes 04-24-2025 6:01 PM (1) Chest pain Chest pain type: unspecified Qualified Code(s): R07.9 - Chest pain, unspecified
--- NOTE | 2025-04-25 11:18 | Electrocardiogram Report ---
Test Reason : Blood Pressure : */* mmHG Vent. Rate : 69 BPM Atrial Rate : 69 BPM P-R Int : 288 ms QRS Dur : 88 ms QT Int : 380 ms P-R-T Axes : 134 96 158 degrees QTcB Int : 407 ms Sinus rhythm Nonspecific T wave abnormality Abnormal ECG When compared with ECG of 24-Apr-2025 16:32, (unconfirmed) Questionable change in QRS axis QT has shortened Confirmed by Michael Finney ([id number]) on 04/25/2025 11:18:42 AM Referred By: REFERRED SELF Confirmed By: Michael Finney
[2025-04-25] MEDS: INSULIN ASPART PER UNIT CHARGE SC SCH (12:16)
--- NOTE | 2025-04-25 14:41 | Progress Note ---
Date of Service April 25, 2025 Assessment & Plan Admission and Anticipated Discharge Date Admission Date: April 24, 2025 Results & Data Vital Signs (Past 12 Hours) Vital Signs Temp Pulse Pulse Resp BP Pulse Ox O2 Del Method 04/25/25 14:06 53 L 04/25/25 13:00 76 18 96/64 L 97 Room Air 04/25/25 09:27 Room Air 04/25/25 07:43 65 04/25/25 07:14 64 17 121/85 98 Room Air 04/25/25 04:00 36.5 C 77 18 124/70 95 Room Air
--- NOTE | 2025-04-25 15:23 | Psychiatric Consultation ---
Date of Consultation April 25, 2025 Impression / Recommendations Impression F33.2 Major Depressive Disorder, recurrent episode, severe, without psychotic features R45.851 Suicidal ideation Z91.5 Personal history of self-harm Pt presents with persistent depressive symptoms and suicidal ideation, exacerbated by the loss of his and current financial stressors. He has a history of a suicide attempt and psychiatric hospitalizations, with limited benefit from previous treatments. The patient is resistant to taking psychiatric medications due to his belief that they are keeping him alive when he wishes to . He lacks social support and has concerns about his living situation. Pt exhibits pronounced apathy and anergia. He continues to report passive SI with wish to but no active plan. Pt has no access to firearms. Although he has some support from his brother who visits often, pt is functioning poorly, which includes not taking his medications. Overall I spent a total of 80 minutes for this consult including review of chart records, discussion in team meeting,obtaining collateral information, review of labwork, direct evaluation of the patient, counseling the patient, ordering medication, risk assessment, and documentation in the electronic health record. (1) Depression: Plan 1. Continue 1:1 for now. 2. Recommend adding low dose stimulant for short term treatment of depression (e.g. Adderall 5mg po daily qam). 3. Continue other psychiatric meds at current doses; Zoloft 50mg daily, Abilify 5 mg daily. 4. Recommended voluntary psychiatric admission once medically cleared. Pt will consider this prior to follow up. 5. Psychiatric consult service will follow. Psych History Identifying Data 60 y/o , unemployed male with a PMH of Hypertension, CHF, Hypothyroidism, Recurrent falls, Urinary retention, NSTEMI, cellulitis, hyponatremia, h/o CVA, morbid obesity, DM2 (diabetes mellitus, type 2), Pancreatitis, Cholangitis, Hyperlipidemia, and MDD one known prior suicide attempt by OD. Psychiatry was consulted to evaluate pt for depression and suicidal ideation. Chief Complaint "I stopped taking my medication because I wanted to ". History of Present Illness Background: Pt is a 60 y/o male with a history of depression and functional decline since the of his in 2019 and his mother a year ago. He is known to psychiatric consult service, having been evaluated by Dr Murphy 01/04/25 at this facility with a plan to follow up with outpatient mental health services. Pt had a lengthy admission at [facility] most of December 2024 following an OD on 30 aspirin in a suicide attempt. He was admitted to [facility] rehab in February 2025. He reportedly was more functional when his and mother were alive but has not done well since they . Pt has not followed through on referrals by liaison for blended case management. He did follow up on referral to [facility] for outpatient mental health follow up and was been prescribed Zoloft 200mg, Abilify 5 mg po x 30 days. History of Present Illness: Pt reported that he stopped taking both his psychotropic and other medication "because they were keeping him alive and he wanted to ". He was medically admitted for weakness and shortness of breath. He was found to be hypertensive, fluid overloaded and hypothyroid. Pt reportedly has been having falls for some time (including at [facility]). At this time, he reports feeling depressed for several years, particularly since his in 2019. He expresses a lack of desire to live and has stopped taking his psychiatric medications because he believes they are keeping him alive when he would rather be . The patient has had suicidal thoughts persistently over this period, with no significant changes in severity. He attempted suicide earlier this year by rafaela ing approximately 30 aspirin, believing it might be lethal. Currently, the patient reports low energy, feelings of hopelessness and worthlessness, and anxiety related to a potential eviction due to not paying lot rent for his house. He denies experiencing hallucinations or memory issues. Psychiatric History: Onset of his depression was after his 's in 2019. He denied any psychiatric history prior to this. He was admitted to [facility] most of December 2024 after taking an overdose. He reports 3-4 prior psychiatric admissions. He denied a history of ese, learning difficulties, or psychotic symptoms. Substance Use History: The patient denies any history of alcohol or drug use. Past Medical History: As documented above. s/p CVA. Allergies to PCN. Psychosocial History: The patient was born in the [place] but spent several years living in [place], [place], during his childhood due to his father's job in the . He lived in [place] for four years and enjoyed the experience of moving frequently. The patient describes his childhood as "happy- ion" and denies any history of trauma, abuse, or parental illness. He is one of five siblings, with two more brothers in addition to the brother mentioned during the interview. The patient completed two years of business school at [employer], obtaining a business degree. 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 The patient was for ten years before his 's passing and has no children. His mother September of the previous year. His father is still alive. No family psychiatric, medical, or substance use history is mentioned. He is currently unemployed, living off his savings and not receiving any support. His brother visits and helps him frequently, including taking him to places. The patient recently "misplaced" his car. The patient lives in a house that he and his bought, but he is concerned about being evicted due to not paying lot rent. Past Psychiatric History Previous Psych History: Pt reports 3-4 prior psychiatric admissions. Most recent admission was December 2024. Outpatient follow up at [facility]. Outpatient Services: Current meds Zoloft 50mg daily, Abilify 5mg daily. Do You Have Access To A Gun?: No History of Previous Suicide Attempt: Yes Describe Attempts in the Past: Overdose on 30 aspirin in December 2024. Allergies Allergy/AdvReac Type Severity Reaction Status Date / Time Penicillins Allergy Severe 1968--ANAPH Verified 04/24/25 17:50 YLAXIS doxycycline Allergy Intermediate HIVES Verified 04/24/25 17:50 Macrolide Antibiotics Allergy Unknown UNKNOWN Verified 04/24/25 17:50 morphine AdvReac Intermediate GI UPSET Verified 04/24/25 17:50 Home Medications Medication Instructions Recorded Confirmed Type levothyroxine 175 mcg tablet 175 mcg PO DAILYBB 01/05/25 04/24/25 History nitroglycerin 0.4 mg sublingual 0.4 mg sublingual DIRECTED PRN 01/05/25 04/24/25 History tablet (Nitrostat) Chest Pain sertraline 50 mg tablet 150 mg PO QAM 01/05/25 04/24/25 History aripiprazole 5 mg tablet (Abilify) 5 mg PO QAM #30 tabs 01/09/25 04/24/25 Rx lisinopril 5 mg tablet 5 mg PO QAM #30 tabs 01/09/25 04/24/25 Rx pantoprazole 40 mg tablet,delayed 40 mg PO QAM #30 tabs 01/09/25 04/24/25 Rx release rosuvastatin 10 mg tablet 10 mg PO QAM #30 tabs 01/09/25 04/24/25 Rx Lactobacillus acidophilus 10 10,000 mmu cells PO DAILY 04/24/25 04/24/25 History billion cell capsule (Probiotic) acetaminophen 650 mg 650 mg PO Q8H PRN Pain 04/24/25 04/24/25 History tablet,extended release aspirin 81 mg tablet,delayed 81 mg PO QAM 04/24/25 04/24/25 History release clobetasol 0.05 % topical ointment 1 applic topical BID PRN APPLY TO 04/24/25 04/24/25 History FEET DIRECTED clotrimazole 1 % topical cream 1 applic topical TID PRN AFFECTED 04/24/25 04/24/25 History AREAS cyanocobalamin (vitamin B-12) 1,000 mcg PO DAILY 04/24/25 04/24/25 History 1,000 mcg tablet (Vitamin B-12) fluoxetine 40 mg capsule 40 mg PO QAM 04/24/25 04/24/25 History insulin glargine 100 unit/mL (3 40 unit subcut HS 04/24/25 04/24/25 History mL) subcutaneous pen (Lantus Solostar U-100 Insulin) isosorbide mononitrate 30 mg 30 mg PO DAILY 04/24/25 04/24/25 History tablet,extended release 24 hr meloxicam 7.5 mg tablet 7.5 mg PO QAM 04/24/25 04/24/25 History metformin 500 mg tablet,extended 500 mg PO DIRECTED 04/24/25 04/24/25 History release 24 hr metoprolol succinate 50 mg 50 mg PO DAILY 04/24/25 04/24/25 History tablet,extended release 24 hr nystatin 100,000 unit/gram topical 1 applic topical TID PRN APPLY TO 04/24/25 04/24/25 History powder SCROTUM NEEDED tamsulosin 0.4 mg capsule (Flomax) 0.4 mg PO DAILY 04/24/25 04/24/25 History triamcinolone acetonide 0.1 % 1 applic topical BID PRN SKIN 07/13/25 07/13/25 History topical cream IRRITATIONS Patient History Medical History Bilateral knee pain Hypertension Diabetes Social History Smoking Status: Never smoker Hx Alcohol Use: No Hx Substance Use: No Preferred Language: Slovenian Communication Ability: Effective 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 Pt was lying in bed, appeared apathetic, made good eye contact. Moderate psychomotor retardation. Orientation: alert, oriented to person, oriented to place and cooperative Apperance: appropriately dressed (appeared older than stated age. ) Eye Contact: good eye contact Motor Behavior: + psychomotor retardation Slow rate, reduced prosody. Affect: + depressed affect, + flat affect, + blunted affect and mood congruent with affect Mood: + depressed mood Thought Process: goal directed thought process and clear/coherent thought process Thought Content: + hopelessness and + worthlessness Endorsed passive wish to with no intent or plan at this time. Homicidal Thoughts: denies homicidal thoughts, denies homicidal plan and denies homicidal intent Denied HI intent or plan Cognitive Assessment: The patient was administered a cognitive assessment during the interview. He initially stated the current year as 2007 but correctly identified the season as spring. He was unable to provide the current date or day of the week. The patient correctly identified the state as [place] and correctly named the county as [facility]. He was able to repeat and recall three words (cat, ball, house) and correctly spelled "Earth" forwards and backwards. The patient identified a ballpoint pen and a watch. He was able to follow the instruction to fold a paper in half and return it to the interviewer but had difficulty reading and completing a written instruction due to his eyesight. The patient wrote a simple sentence and attempted to copy a drawing to the best of his ability. MMSE Score: 26/30. Estimated Intelligence: average estimated intelligence and consistent with education level Insight: + fair insight Judgment: + limited judgement and + poor judgement Vital Signs (Past 24 Hours): Last Vital Signs Temp 36.5 C 04/25/25 04:00 Pulse 53 L 04/25/25 14:06 Resp 18 04/25/25 13:00 BP 96/64 L 04/25/25 13:00 Pulse Ox 97 04/25/25 13:00 O2 Del Method Room Air 04/25/25 13:00 O2 Flow Rate 0 04/24/25 16:39 Results & Data (PSY) Laboratory Results CBC: No leukocytosis. Mild anemia. There was a normal platelet count. INR is 1.2 Hypothyroid. Chest x-ray did not show pneumonia. BNP was consistent with fluid overload/CHF. ECG showed a sinus rhythm, no obvious ischemia with first degree heart block. Rate 87. There is poor R wave progression. There is no acute ST elevation, no PVCs. There is some nonspecific ST changes noted. QTc is 464. Cardiac enzyme testing x 1 was not consistent with acute cardiac injury. Brain CT showed no acute bleed or mass effect. Chest x-ray does not show pneumonia or pneumothorax. No true CHF. Medications Administered Aripiprazole (Aripiprazole 5 Mg Tab) 5 mg PO [facility] Stop: 05/25/25 08:59 Last Admin: 04/25/25 09:00 Dose: 5 mg Documented By: CLEOPATRA Aspirin (Aspirin 81 Mg Ectab) 81 mg PO [facility] Stop: 05/25/25 08:59 Last Admin: 04/25/25 09:02 Dose: 81 mg Documented By: CLEOPATRA Cyanocobalamin (Cyanocobalamin (B-12) 500 Mcg Tablet) 1,000 mcg PO DAILY [facility] Stop: 05/25/25 08:59 Last Admin: 04/25/25 09:02 Dose: 1,000 mcg Documented By: CLEOPATRA Enoxaparin Sodium (Enoxaparin Inj 40 Mg/0.4 Ml Syr) [facility]: 05/25/25 08:59 Last Admin: 04/25/25 09:03 Dose: 40 mg Documented By: CLEOPATRA Fluoxetine HCl (Fluoxetine Hcl 20 Mg Cap) 40 mg [facility] Stop: 05/25/25 08:59 Last Admin: 04/25/25 09:01 Dose: 40 mg Documented By: CLEOPATRA Sodium Chloride (Nss) 1,000 mls @ 50 mls/hr IV .Q20H ONE Stop: 04/25/25 19:53 Last Admin: 04/25/25 00:26 Dose: 50 mls/hr Documented By: CORI Insulin Aspart (Insulin Aspart Per Unit Charge) 0 units SC ACHS [facility] Stop: 05/25/25 11:29 Last Admin: 04/25/25 12:16 Dose: Not Given Documented By: CLEOPATRA Isosorbide Mononitrate (Isosorbide Lamb Extended Rel 30 Mg Tabcr) 30 mg PO DAILY [facility] Stop: 05/25/25 08:59 Last Admin: 04/25/25 09:00 Dose: 30 mg Documented By: CLEOPATRA Lactobacillus Acidophilus (Advanced Probiotic 625 Mg Capsule) 1,250 mg PO DAILY [facility] Stop: 05/25/25 08:59 Last Admin: 04/25/25 09:00 Dose: 1,250 mg Documented By: CLEOPATRA Levothyroxine Sodium (Levothyroxine Sodium 175 Mcg Tablet) [facility] Stop: 05/25/25 06:29 Last Admin: 04/25/25 06:29 Dose: 175 mcg Documented By: CORI Lisinopril (Lisinopril 5 Mg Tab) 5 mg PO [facility] Stop: 05/25/25 08:59 Last Admin: 04/25/25 09:03 Dose: 5 mg Documented By: CLEOPATRA Metoprolol Succinate (Metoprolol Succ 50mg Ext Rel Tab) 50 mg PO DAILY [facility] Stop: 05/25/25 08:59 Last Admin: 04/25/25 09:02 Dose: 50 mg Documented By: CLEOPATRA Pantoprazole Sodium (Pantoprazole 40 Mg Tab) 40 mg PO [facility] Stop: 05/25/25 08:59 Last Admin: 04/25/25 09:02 Dose: 40 mg Documented By: CLEOPATRA Rosuvastatin Calcium (Rosuvastatin Calcium 10 Mg Tab) 10 mg [facility] Stop: 05/25/25 08:59 Last Admin: 04/25/25 09:00 Dose: 10 mg Documented By: CLEOPATRA Sertraline HCl (Sertraline Hcl 50 Mg Tablet) 150 mg PO [facility] Stop: 05/25/25 08:59 Last Admin: 04/25/25 09:00 Dose: 150 mg Documented By: CLEOPATRA Tamsulosin HCl (Tamsulosin Hcl 0.4 Mg Cap) 0.4 mg PO DAILY [facility] Stop: 05/25/25 08:59 Last Admin: 04/25/25 09:01 Dose: 0.4 mg Documented By: CLEOPATRA [place] [address] IN/OBS CONSULT LVL 5,80M Patient Type New History Detailed Exam Detailed Medical Decision Making Moderate Complexity Diagnoses Depression F32.A Time Spent (min) 80
[2025-04-25] MEDS: HEPARIN SOD (PORCINE) 1000 UNIT/ML IV ONE (16:09)
[2025-04-25] MEDS: HEPARIN 25000 UNIT/500 ML D5W 25,000 UNITS/500 ML BAG IV SCH (16:13)
[2025-04-25] MEDS: Heparin IV Adult Wt-Based Standard w/ INITIAL Bolus Protocol IV STA (16:23)
[2025-04-25] MEDS: LANTUS PER UNIT CHARGE SQ SCH (21:06)
[2025-04-25 23:54] LABS: ANTI-Xa, UFH(UnfractionatedHep 0.75 IU/ml (0.3-0.7)
[2025-04-26 06:48] LABS: ANTI-Xa, UFH(UnfractionatedHep 0.52 IU/ml (0.3-0.7)
[2025-04-26] MEDS: APIXABAN 5 MG TABLET PO SCH (08:56)
--- NOTE | 2025-04-26 11:12 | Cardiology Progress Note ---
Date of Service April 26, 2025 Assessment & Plan (1) CAD (coronary artery disease): (2) Nonadherence to medication: (3) Hypertension: (4) Heart failure with reduced ejection fraction (HFrEF): (5) Weakness: (6) Ischemic cardiomyopathy: (7) LV (left ventricular) mural thrombus: Plan 04/25/25 Patient is a complex 60 year old male admitted with weakness, ambulatory dysfunction, chest pain/pressure with history of coronary artery disease per cath in February 2024. At that time, he was found to have multivessel CAD and surgical revascularization was recommended. However he had poor surgical targets and med management recommended. Patient has a long history of depression/suicidal ideation and non compliance with medications. Apparently he stopped all of his oral medications several months ago. Since that time, patient reported intermittent chest pain/pressure, occurring at rest or with walking. Since admission, he has had HS troponin negative x3. EKG demonstrating sinus with 1st degree AV block and T wave inversion in lateral leads, stable from prior EKG's. Echo ordered and pending. Recommend continuing medical management for ongoing coronary artery disease. Resume ASA 81 mg daily, metoprolol succinate 50 mg daily, rosuvastatin, isosorbide 30 mg daily, and lisinopril. these were prior home medications. He was treated yesterday with one dose IV lasix 40 mg with good urine output. Appears euvolemic currently Consider low dose loop diuretic and/or spironolactone as well. Could titrate isosorbide if needed pending anginal complaints. Recommend psych evaluation for suicidal ideations. He has been following with neurology for ongoing weakness and ambulatory dysfunction. This was thought to be related to his DDD/spinal stenosis. At this time, would not recommend further invasive cardiac testing. Will monitor patient as he is resumed on his oral medications. 04/26/25 Patient diagnosed with LV apical thrombus yesterday on echo Also diagnosed with worsening of his LV systolic function, now severely reduced at 20-25%, consistent with ischemic cardiomyopathy and left to right interatrial shunt. Prior cath in 2023 with severe multivessel disease with poor surgical targets for intervention or bypass surgery. Med management had been recommended. Unfortunately patient stopped all medications approx 3 months ago. Recommendations: Transition from IV heparin to anticoagulation for LV thrombus. Started on Eliquis 5 mg BID. Case management to check on cost/affordability. GDMT resumed during this admission - Continue ASA, statin, metoprolol succinate, lisinopril, isosorbide. BP is borderline low, so he is likely at max tolerated doses of these medications. Can consider transitioning to Entresto as an outpatient (if affordable) and if patient is compliant with follow up. If tolerated, could consider initiation of spironolactone. Mild renal insufficiency noted today with creatinine of 1.4. Will not start today. Psych consulted for suicidal ideations. Currently 1:1 sitter. Plans to possibly transfer to psych unit once medically stable. Anticipate can be transferred within 24 hours Case discussed with Dr. Mae I spent a total of 35 minutes on the date of service in preparation, delivery, and documentation of the care provided to this patient, excluding any time spent in the performance of separately billed services. Bing Oconnor PA-C Department of Cardiology, [facility] This chart was completed in part utilizing Speech Voice Recognition Software. Grammatical errors, random word insertions, pronoun errors, and incomplete sentences are an occasional consequence of this system due to software limitatio ns, ambient noise, and hardware issues. Any formal questions or concerns about the content, text, or information contained within the body of this dictation should be directly addressed to the provider for clarification. Admission and Anticipated Discharge Date Admission Date: April 24, 2025 Supervising Physician Co-Signing Physician Notes I have personally performed a history and physical examination on the patient. I have reviewed the advance practitioner's documentation, and I agree with, and take responsibility for the plan of care. 60-year-old male presenting with weakness, possible chest discomfort, chronic heart failure with reduced ejection fraction, multivessel coronary artery disease and nonadherence to medications. Denies chest discomfort overnight. No orthopnea, PND, or lower extremity edema. Resting 2D transthoracic echoca rdiogram demonstrates severe LV systolic dysfunction with evidence of left atrial left ventricular apical thrombus. Anticoagulation with IV heparin initiated 04/25/2025. Transition to oral Eliquis this a.m. 04/26/2025. Cardiac catheterization 2023 films reviewed demonstrating severe multivessel coronary disease, deemed inoperable per prior cardiology notes. Coronary vessels are poor talk targets for intervention or bypass surgery. Current presentation precipitated by nonadherence to all cardiovascular medications for 3 months prior to presentation. Recommendations: * Transition IV heparin to Eliquis 5 mg twice daily. * Restart GDMT with lisinopril and Toprol-XL. * Consider addition of spironolactone in AM pending review of repeat BMP. * Medical management of chronic multivessel coronary disease. * Reviewed importance of compliance with medical therapies. I spent a total of 25 minutes on the date of service in preparation, delivery, and documentation of the care provided to this patient, excluding any time spent in the performance of separately billed services. Markell Mae DO, [facility] Subjective Patient resting in bed comfortably. Reports "shortness of breath" this morning, but oxygen levels are normal and laying supine without any conversational dyspnea or orthopnea. No chest pain reported. No dizziness reported. Remains on 1:1. referral manager present and they may transfer him to psych unit in the next 24 hours when "medically cleared". Review of Systems Review of Systems: All systems reviewed & are unremarkable except as noted in HPI & below Physical Exam Constitutional: WD/WN, vitals as above + obese; no acute distress Neck: + thick neck Respiratory: no labored breathing and no cough Cardiovascular: Rate/Rhythm: regular rate and regular rhythm Heart Sounds: no murmur (distant heart sounds) Extremities: no edema Gastrointestinal (Abdomen): Inspection/Auscultation: abdomen normal to inspection Percussion/Palpation: abdomen soft; abdomen nontender Neurologic: PERRL, EOMI, accommodation nl, no face palsy, no dysarthria Psychiatric: Orientation: alert and oriented x 3 Mood: + depressed mood Results & Data Vital Signs (Past 12 Hours) Vital Signs Temp Pulse Resp BP Pulse Ox O2 Del Method 04/26/25 10:50 36.4 C 68 20 101/78 96 Room Air 04/26/25 07:09 36.4 C L 65 20 135/99 97 Room Air 04/26/25 04:00 36.7 C 62 18 107/80 96 Room Air Laboratory Results Intake and Output 04/25/25 04/26/25 04/26/25 22:59 06:59 14:59 Intake Total 1260.500 / 1526.100 145.6 / 1526.100 247.733 / 247.733 Balance 1260.500 / 1526.100 145.6 / 1526.100 247.733 / 247.733 Intake: IV 870.500 / 1016.100 145.6 / 1016.100 247.733 / 247.733 Heparin 42361 Unit/500 ml D5w 74.667 / 220.267 145.6 / 220.267 247.733 / 247.733 25,000 units In 500 ml @ 1,300 UNITS/HR 26 mls/hr IV .[id number] [facility] Rx#:[id number] Sodium Chloride 0.9% 1,000 ml @ 795.833 / 795.833 50 mls/hr IV .Q20H [facility] Rx#: [id number] Oral 390 / 510 Other: Other Intake Source sips # Unmeasured Voids 1 Weight 103.28 kg Weight Measurement Method Built in [facility] Patient Weight 04/27/25 06:59 Weight 103.28 kg Diagnostic Findings Telemetry reviewed: NSR with PAC's and possibly blocked PAC's. Echo reviewed from yesterday: LV systolic function is severely reduced at 20 to 25%. Diffuse hypokinesis to akinesis. Moderate size apical LV thrombus. Mild MR. Mild TR. No pulmonary hypertension. Moderate left to right interatrial shunt Diastolic dysfunction grade 3 Compared with prior echo in December 2024, severe LV systolic Dysfunction now present with moderate apical LV thrombus and left to right interatrial shunt now present. Medications Administered Current Inpatient Medications Apixaban (Apixaban 5 Mg Tablet) 5 mg PO BID [facility] Stop: 05/26/25 08:59 Last Admin: 04/26/25 08:56 Dose: 5 mg Aripiprazole (Aripiprazole 5 Mg Tab) 5 mg PO QAM [facility] Stop: 05/25/25 08:59 Last Admin: 04/26/25 08:57 Dose: 5 mg Aspirin (Aspirin 81 Mg Ectab) 81 mg PO QAM [facility] Stop: 05/25/25 08:59 Last Admin: 04/26/25 08:57 Dose: 81 mg Cyanocobalamin (Cyanocobalamin (B-12) 500 Mcg Tablet) 1,000 mcg PO DAILY [facility] Stop: 05/25/25 08:59 Last Admin: 04/26/25 08:56 Dose: 1,000 mcg Dextrose (Dextrose 50% 50 Ml Syringe) 25 - 50 ml IV UD PRN; Protocol PRN Reason: Hypoglycemia Protocol Stop: 05/24/25 22:31 Fluoxetine HCl (Fluoxetine Hcl 20 Mg Cap) 40 mg PO QAM [facility] Stop: 05/25/25 08:59 Last Admin: 04/26/25 08:57 Dose: 40 mg Glucagon (Glucagon For Inj 1 Mg Vial) 1 mg SQ UD PRN; Protocol PRN Reason: Hypoglycemia Protocol Stop: 05/24/25 22:31 Glucose (Glucose 40% Gel 15 Gm Tube) 15 - 30 gm PO UD PRN; Protocol PRN Reason: Hypoglycemia Protocol Stop: 05/24/25 22:31 Glucose (Glucose 10 Tab/Tube) 4 - 8 tab PO UD PRN; Protocol PRN Reason: Hypoglycemia Protocol Stop: 05/24/25 22:31 Hydroxyzine HCl (Hydroxyzine Hcl 10 Mg Tab) 10 mg PO QID PRN PRN Reason: Anxiety Stop: 05/24/25 20:56 Promethazine HCl (Phenergan) 6.25 mg in 50.25 mls @ 201 mls/hr IV Q6H PRN PRN Reason: Nausea And Vomiting Stop: 05/24/25 20:55 Insulin Aspart (Insulin Aspart Per Unit Charge) 0 units SC ACHS [facility] Stop: 05/25/25 11:29 Last Admin: 04/26/25 09:03 Dose: 2 units Insulin Glargine (Lantus Per Unit Charge) 5 units SQ HS [facility] Stop: 05/25/25 20:59 Last Admin: 04/25/25 21:06 Dose: 5 units Isosorbide Mononitrate (Isosorbide [place] Extended Rel 30 Mg Tabcr) 30 mg PO DAILY [facility] Stop: 05/25/25 08:59 Last Admin: 04/26/25 08:57 Dose: 30 mg Lactobacillus Acidophilus (Advanced Probiotic 625 Mg Capsule) 1,250 mg PO DAILY [facility] Stop: 05/25/25 08:59 Last Admin: 04/26/25 08:57 Dose: 1,250 mg Levothyroxine Sodium (Levothyroxine Sodium 175 Mcg Tablet) 175 mcg PO DAILYBB [facility] Stop: 05/25/25 06:29 Last Admin: 04/26/25 06:16 Dose: 175 mcg Lisinopril (Lisinopril 5 Mg Tab) 5 mg PO QAM [facility] Stop: 05/25/25 08:59 Last Admin: 04/26/25 08:57 Dose: 5 mg Metoprolol Succinate (Metoprolol Succ 50mg Ext Rel Tab) 50 mg PO DAILY [facility] Stop: 05/25/25 08:59 Last Admin: 04/26/25 08:58 Dose: 50 mg Miscellaneous (Carbohydrates For Hypoglycemia ) 15 - 30 gm PO UD PRN PRN Reason: Hypoglycemia Protocol Stop: 05/24/25 22:31 Morphine Sulfate (Morphine Sulfate 4 Mg/Ml 1 Ml Carp\\Vial) 4 mg IV Q4H PRN PRN Reason: Pain Stop: 05/08/25 20:55 Oxycodone HCl (Oxycodone Hcl Ir 5 Mg Tab (Immediate Release)) 5 mg PO Q4H PRN PRN Reason: Pain Stop: 05/08/25 20:55 Pantoprazole Sodium (Pantoprazole 40 Mg Tab) 40 mg PO QAM [facility] Stop: 05/25/25 08:59 Last Admin: 04/26/25 08:58 Dose: 40 mg Rosuvastatin Calcium (Rosuvastatin Calcium 10 Mg Tab) 10 mg PO QAM [facility] Stop: 05/25/25 08:59 Last Admin: 04/26/25 08:58 Dose: 10 mg Sertraline HCl (Sertraline Hcl 50 Mg Tablet) 150 mg PO QAM [facility] Stop: 05/25/25 08:59 Last Admin: 04/26/25 08:58 Dose: 150 mg Tamsulosin HCl (Tamsulosin Hcl 0.4 Mg Cap) 0.4 mg PO DAILY [facility] Stop: 05/25/25 08:59 Last Admin: 04/26/25 08:58 Dose: 0.4 mg PG Care Time/CCT Total # of Minutes Spent Total Time Spent with Patient: Total time spent is greater than 50% in coordination of care (as documented) at patient's floor/unit and/or counseling patient: 35 Coding Level of Care Code 54967 SUB INP/OBS CARE 3/50MIN Diagnoses Coronary artery disease of [place] artery of [place] heart with stable angina pect blue I25.118 Associated angina: with stable angina Coronary Disease-Associated Artery/Lesion type: [place] artery [place] vs. transplanted heart: [place] heart Nonadherence to medication Z91.148 Hypertension I10 Hypertension type: unspecified Heart failure with reduced ejection fraction (HFrEF) I50.20 Weakness R53.1 Ischemic cardiomyopathy I25.5 LV (left ventricular) mural thrombus I51.3 (1) CAD (coronary artery disease) Associated angina: with stable angina Coronary Disease-Associated Artery/Lesion type: [place] artery [place] vs. transplanted heart: [place] heart Qualified Code(s): I25.118 - Atherosclerotic heart disease of [place] coronary artery with other forms of angina pectoris (3) Hypertension Hypertension type: unspecified Qualified Code(s): I10 - Essential (primary) hypertension
--- NOTE | 2025-04-26 16:41 | Hospitalist Progress Note ---
Date of Service April 26, 2025 Assessment & Plan (1) Chest pain: Plan: In summary, 60-year-old male with a history of multivessel coronary artery disease, stroke, major recurrent depression, chronic systolic heart failure, hypertension, hyperlipidemia and obstructive sleep apnea admitted with chest pain. Chest pain Relieved by nitroglycerin in ED. Cardiology consult appreciated. S/P cardiac cath in 2023 on 03/09/24 demonstrating severe multivessel CAD demonstrating severe multivessel coronary artery disease that was felt to have poor surgical targets. Echo revealed LVEF 40-45% with large apical, inferior, and posterior wall motion abnormality. He was started on appropriate medical therapies upon that discharge, however per outpatient notes patient repeatedly stopped all medications. ACS ruled out Echocardiogram done yesterday shows a large apical thrombus Chronic systolic heart failure EF (40 to 45%, TTE 2024). He appears to be euvolemic at present Given one dose of IV lasix on admission Pt is noncompliant with meds Restart ASA and other meds Watch I&O Echo from yesterday shows a large apical thrombus and further decrease in left ventricular ejection fraction of 20- 25% with diffuse hypokinesis. Patient was transitioned from IV heparin to apixaban Will add spironolactone per cardiology recommendations if renal function remains stable on tomorrow's lab work HTN Follow BPs BPs are soft at present, in light of bradycardia down into the 30s and 40s with blood along with the soft BPs we will decrease the metoprolol to 25 mg daily. HLD restart statin--->Crestor CHARLEEN with CPAP intolerance Prior CVA left hemiparesis Follows with Neuro Had recent MRI DM2 insulin requiring, well-controlled as of recent hemoglobin A1c of 6.18 January 2025 Continue CCD HHD SSI if needed Hypothyroidism. TSH markedly elevated secondary to noncompliance Thyroid replacement restarted Chronic anemia Hemoglobin at baseline Trend labs Severe depression with suicidal ideations Consulted psychiatry. Patient will need inpatient psychiatric care. Discussed the case with psychiatry. They feel the patient has too many medical complex issues for our unit and are searching for other outside units. Suicide precautions Recurrent [place] PT OT consults DVT prophylaxis. On apixaban DNR Patient brother requesting updates providers. Mr. Jose Corbin, contact #[phone]. I spent a total of 53 minutes coordinating, documenting and providing care for this patient with time spent in the performance of separately billed services. Admission and Anticipated Discharge Date Admission Date: April 24, 2025 Subjective Patient seen and examined around 8 AM with nursing present and the 11 sitter. Chart, data and vital signs reviewed in detail. Patient is more talkative today. Still admits to severe depression. Patient denies any further chest pain. He has chronic shortness of breath. Patient was started back on some of his cardiac meds. Compliance was stressed by cardiology. Patient has had some bradycardia down into the 30s. His metoprolol has been decreased. He denies nausea, vomiting or diarrhea. He denies visual disturbance. Physical Exam Physical Exam: General- adult male seen at bedside. He has a chronic ill appearance and flat affect Eyes- PERRL, EOMI, anicteric ENT- oropharynx clear Neck- supple, no JVD, no adenopathy, no thyromegaly; carotids +2/2, no bruits appreciated Lungs-diminished breath sounds in the bases otherwise clear to auscultation and percussion Heart- regular rhythm; no murmur, no gallop, no rub appreciated Abdomen- normal bowel sounds, soft, nontender, no masses or hepatosplenomegaly Extremities- no pretibial edema, no calf tenderness; peripheral pulses intact Neuro- alert, oriented x 3; PERRL, EOMI; very flat affect Skin- warm & dry Results & Data Results & Data Vital Signs (Past 12 Hours) Vital Signs Temp Pulse Pulse Resp BP Pulse Ox O2 Del Method 04/26/25 15:51 36.3 C L 61 20 105/60 99 Room Air 04/26/25 14:07 61 04/26/25 10:50 36.4 C 68 20 101/78 96 Room Air 04/26/25 07:09 36.4 C L 65 20 135/99 97 Room Air Diagnostic Findings Laboratory Results WBC 6.22 K/ul (4.8-10.8) 04/25/25 06:24 RBC 4.97 M/uL (4.70-6.10) 04/25/25 06:24 Hgb 12.8 g/dl (14.0-18.0) L 04/25/25 06:24 Hct 39.8 % (42.0-52.0) L 04/25/25 06:24 MCV 80.1 fL (80.0-100.0) 04/25/25 06:24 MCH 25.8 pg (25.0-34.0) 04/25/25 06:24 MCHC 32.2 g/dL (32.0-36.0) 04/25/25 06:24 RDW Std Deviation 38.7 fL (36.4-46.3) 04/25/25 06:24 RDW Coeff of [place]iel 13.6 % (11.5-14.5) 04/25/25 06:24 Plt Count 196 K/uL (130-400) 04/25/25 06:24 MPV 10.2 fL (9.4-12.4) 04/25/25 06:24 Immature Gran % (Auto) 0.2 % 04/25/25 06:24 Neut % (Auto) 67.0 % 04/25/25 06:24 Lymph % (Auto) 22.5 % 04/25/25 06:24 [place] % (Auto) 3.9 % 04/25/25 06:24 Eos % (Auto) 5.1 % 04/25/25 06:24 Baso % (Auto) 1.3 % 04/25/25 06:24 Neut # (Auto) 4.17 K/uL (1.40-6.50) 04/25/25 06:24 Lymph # (Auto) 1.40 K/uL (1.20-3.40) 04/25/25 06:24 [place] # (Auto) 0.24 K/uL (0.11-0.59) 04/25/25 06:24 Eos # (Auto) 0.32 K/uL (0.00-0.50) 04/25/25 06:24 Baso # (Auto) 0.08 K/uL (0.00-0.20) 04/25/25 06:24 Immature Gran # (Auto) 0.01 K/uL (0.01-0.20) 04/25/25 06:24 PT 12.5 Seconds (9.0-12.0) H 04/24/25 17:08 INR 1.2 (0.9-1.1) H 04/24/25 17:08 APTT 31 Seconds (21-31) 04/25/25 06:24 PTT Ratio 1.2 04/25/25 06:24 Heparin Anti-Xa, Unfract 0.52 IU/ml (0.3-0.7) 04/26/25 05:45 Sodium 138 mmol/L (136-145) 04/25/25 06:24 Potassium 3.6 mmol/L (3.5-5.1) 04/25/25 06:24 Chloride 103 mmol/L (98-107) 04/25/25 06:24 Carbon Dioxide 27 mmol/L (21-32) 04/25/25 06:24 Anion Gap 8 (3-11) 04/25/25 06:24 BUN 11 mg/dl (6-23) 04/25/25 06:24 Creatinine 1.43 mg/dl (0.6-1.4) H 04/25/25 06:24 Est Cr Clr Drug Dosing 63.0 ml/min 04/25/25 06:24 eGFR 56.80 04/25/25 06:24 BUN/Creatinine Ratio 7.7 (10-20) L 04/25/25 06:24 Glucose 138 mg/dl (70-99(Fasting)) H 04/25/25 06:24 POC Glucose 145 mg/dl (70-99) H 04/26/25 15:58 Calcium 8.8 mg/dl (8.6-10.3) 04/25/25 06:24 Magnesium 2.0 mg/dl (1.7-2.4) 04/24/25 17:08 Total Bilirubin 0.7 mg/dl (0.2-1.0) 04/24/25 17:08 AST 8 U/L (13-39) L 04/24/25 17:08 ALT 5 U/L (7-52) L 04/24/25 17:08 Alkaline Phosphatase 63 U/L (34-104) 04/24/25 17:08 Troponin I High Sens 12.2 pg/ml (0-20) 04/25/25 06:24 B-Natriuretic Peptide 1299 pg/ml (0-100) H 04/24/25 17:08 Total Protein 6.6 gm/dl (6.0-8.3) 04/24/25 17:08 Albumin 3.8 gm/dl (3.4-5.0) 04/24/25 17:08 Globulin 2.8 gm/dl (2.5-4.0) 04/24/25 17:08 Albumin/Globulin Ratio 1.4 (0.9-2) 04/24/25 17:08 Triglycerides 86 mg/dl (0-150) 04/25/25 06:24 Cholesterol 204 mg/dl (0-200) H 04/25/25 06:24 LDL Cholesterol, Calc 163 mg/dl 04/25/25 06:24 VLDL Cholesterol, Calc 17 mg/dl (0-30) 04/25/25 06:24 HDL Cholesterol 24 mg/dl 04/25/25 06:24 Cholesterol/HDL Ratio 8.5 (0-5) H 04/25/25 06:24 TSH 28.029 uIu/ml (0.300-4.500) H 04/24/25 17:08 Free T4 0.39 ng/dl (0.61-1.60) L 04/24/25 17:08 Urine Color Yellow 04/24/25 20:08 Urine Appearance Clear (Clear) 04/24/25 20:08 Urine pH 5.5 (4.5-7.5) 04/24/25 20:08 Ur Specific [place] 1.012 (1.000-1.030) 04/24/25 20:08 Urine Protein 1+ (Negative) H 04/24/25 20:08 Urine Glucose (UA) Negative (Negative) 04/24/25 20:08 Urine Ketones Negative (Negative) 04/24/25 20:08 Urine Blood Negative (Negative) 04/24/25 20:08 Urine Nitrite Negative (Negative) 04/24/25 20:08 Urine Bilirubin Negative (Negative) 04/24/25 20:08 Urine Urobilinogen Negative (Negative) 04/24/25 20:08 Ur Leukocyte Esterase Negative (Negative) 04/24/25 20:08 Urine WBC (Auto) 0-5 /hpf (0-5) 04/24/25 20:08 Urine RBC (Auto) 0-2 /hpf (0-2) 04/24/25 20:08 U Hyaline Cast (Auto) 0-2 /lpf (0-2) 04/24/25 20:08 U Epithel Cells (Auto) 0-2 /hpf (0-2) 04/24/25 20:08 Urine Bacteria (Auto) None Seen (None Seen) 04/24/25 20:08 Urine Comment 04/24/25 20:08 Impressions Chest X-Ray 04/24/25 16:37 Chest radiograph, one view History: Dyspnea Comparison: None Findings: Single AP view of the chest performed. No focal consolidation or pleural effusion. No pneumothorax. The cardiomediastinal silhouette is within normal limits. Normal pulmonary vascularity. No evidence for lymphadenopathy. No visualized bony or soft tissue abnormality. Impression: Normal chest radiograph Electronically signed by Martinez Dugan 04-24-2025 5:[address] 04/24/25 16:38 EXAMINATION: Head CT without CLINICAL HISTORY: Dizzy PRIORS: MR 01/06/2025 TECHNIQUE: Contiguous axial images were obtained through the head without the use of intravenous contrast. Sagittal and coronal reformations are supplied. FINDINGS: Motion artifact degrades image quality. Mild parenchymal volume loss noted. Moderate to advanced periventricular lucency, likely representing small vessel occlusive disease. Loss of rouse-white differentiation present in the right frontal lobe, unchanged. Rouse-white differentiation is preserved. No edema or midline shift. No intra-axial or extra-axial hemorrhage. Ventricles are normal in size and configuration. Brainstem and cerebellum have a normal appearance. Calvarium unremarkable. Mild right maxillary sinus mucosal thickening, unchanged. Mastoid air cells are well-pneumatized. Globes are intact. No retrobulbar abnormality. IMPRESSION: 1. No CT evidence of an acute intracranial abnormality. If clinical concern warrants, brain MRI could be considered. Electronically signed by Barbie Hughes 04-24-2025 6:01 PM (1) Chest pain Chest pain type: unspecified Qualified Code(s): R07.9 - Chest pain, unspecified
[2025-04-27 07:33] LABS: Hematocrit (blood only) 39.7 % (42.0-52.0); Hemoglobin 12.8 g/dl (14.0-18.0); Mean Corpuscular Hemoglobin 25.8 pg (25.0-34.0); Mean Corpuscular Volume 80.0 fL (80.0-100.0); Platelet Count 212 K/uL (130-400); RDW Standard Deviation 38.4 fL (36.4-46.3); Red Blood Count 4.96 M/uL (4.70-6.10); White Blood Count 6.89 K/ul (4.8-10.8)
[2025-04-27 07:48] LABS: Anion Gap 8.0 (3-11); Blood Urea Nitrogen 16.0 mg/dl (6-23); Calcium 8.8 mg/dl (8.6-10.3); Carbon Dioxide 24.0 mmol/L (21-32); Chloride 101.0 mmol/L (98-107); Creatinine Clr Calc Pharmacy 64.7 ml/min; Glucose 124.0 mg/dl (70-99(Fasting)); Magnesium 1.9 mg/dl (1.7-2.4); Potassium 3.7 mmol/L (3.5-5.1); Sodium 133.0 mmol/L (136-145)
[2025-04-27] MEDS: METOPROLOL SUCC 25MG EXT REL TAB PO SCH (08:18)
--- NOTE | 2025-04-27 09:11 | Psychiatric Progress Note ---
Date of Service April 27, 2025 Impression / Recommendations Impression F33.2 Major Depressive Disorder, recurrent episode, severe, without psychotic features R45.851 Suicidal ideation Z91.5 Personal history of self-harm R41.82: Altered Mental Status. Pt admitted to medical unit for stabilization after stopping his medication for an unspecified period of time with intent to . He continues to endorse a passive wish to with no intent or plan at this time. Pt reiterates his willingness to be admitted voluntarily for psychiatric treatment. Etiology of new onset altered mental status unclear but differentials include hospitalization, reduced perfusion related to CHF, and oversedation. Also note borderline low sodium and hypothyroid state on admission. Pt continues to exhibit pronounced apathy and anergia, passive SI with wish to but no active plan. Pt evaluation completed; pt been determined to need physical rehab given weakness and frequent falls. Overall I spent a total of 50 minutes for this follow up including review of chart records, discussion in team meeting,obtaining collateral information, review of labwork, direct evaluation of the patient, counseling the patient, ordering medication, risk assessment, and documentation in the electronic health record. (1) Depression: Plan 04/26/25 1. Continue 1:1 sitter. 2. Stop Fluoxetine. 3. Reduce Sertraline to 50m daily, reduce Abilify to 2mg daily. 4. Hold off on trial of a stimulant for now, given new onset confusion. 5. Consider repeating CXR, UA as part of a workup for altered mental status. 6. Optimize physical status. May require physical rehab before being physically fit for inpatient psychiatric treatment. 7. Recommend avoiding anticholinergic agents (e.g hydroxyzine) and benzodiazepines as may worsen confusion. 8. Recommend Olanzapine 5mg - 10mg po or IM q 8hrs prn agitation. Do not co- administer IV with benzodiazepines. 9. Psychiatric team will follow. Above discussed with RN and Dr Glez. 04/25/25 1. Continue 1:1 for now. 2. Recommend adding low dose stimulant for short term treatment of depression (e.g. Adderall 5mg po daily qam). 3. Continue other psychiatric meds at current doses; Zoloft 50mg daily, Abilify 5 mg daily. 4. Recommended voluntary psychiatric admission once medically cleared. Pt will consider this prior to follow up. 5. Psychiatric consult service will follow. Risk Factors Assessment Do You Have Access To A Gun?: No Interval History Identifying Information 60 y/o , unemployed male with a PMH of Hypertension, CHF, Hypothyroidism, Recurrent falls, Urinary retention, NSTEMI, cellulitis, hyponatremia, h/o CVA, morbid obesity, DM2 (diabetes mellitus, type 2), Pancreatitis, Cholangitis, Hyperlipidemia, and MDD one known prior suicide attempt by OD. Chief Complaint " I still want to ". Subjective Subjective Patient was seen & assessed and interval progress reviewed with psychiatry liaison, discussed with medical unit RN and attending Dr. Glez. Per primary team, pt continues to report depressed mood and a passive wish to . He was confused overnight and attempted to leave his room. He remains very drowsy at this time, made brief responses to questions then went back to sleep. He is oriented to self, place, situation. He answered in the affirmative when asked if he wants to . He denied active intent or plan at this time. Per RN and sitter, pt has not acted in furtherance of wish to . PT evaluation reviewed: recommended referral to rehab for physical therapy. Patient resting in bed with 1:1 staff at bedside. A He has ongoing weakness and requires assistance/supervision with ADL's and ambulation. Patient will likely require physical rehab prior to psychiatric treatment, p atient agreeable. Meds: Prozac 40mg daily, Sertraline 50mg daily, Abilify 5mg daily. PRNS: Oxycodone, Morphine, Hydroxyzine prn. Physical Exam Psychiatric Orientation: oriented to person Apperance: appropriately dressed (appeared older than stated age. ) Eye Contact: good eye contact Motor Behavior: + psychomotor retardation Affect: + depressed affect, + flat affect, + blunted affect and mood congruent with affect Mood: + depressed mood Thought Process: goal directed thought process and clear/coherent thought process Thought Content: + hopelessness and + worthlessness Homicidal Thoughts: denies homicidal thoughts, denies homicidal plan and denies homicidal intent Estimated Intelligence: average estimated intelligence and consistent with education level Insight: + poor insight Judgment: + poor judgement Vital Signs (Past 24 Hours) Last Vital Signs Temp 36.4 C L 04/27/25 07:07 Pulse 62 04/27/25 07:07 Resp 16 04/27/25 07:07 BP 128/84 04/27/25 07:07 Pulse Ox 99 04/27/25 07:07 O2 Del Method Room Air 04/27/25 07:07 O2 Flow Rate 0 04/24/25 16:39 Results & Data ([facility]) Laboratory Results Laboratory Results - last 24 hr 04/26/25 04/26/25 04/26/25 07:13 10:58 15:58 WBC RBC Hgb Hct MCV MCH MCHC RDW Std Deviation RDW Coeff of Oziel Plt Count MPV Sodium Potassium Chloride Carbon Dioxide Anion Gap BUN Creatinine Est Cr Clr Drug Dosing eGFR BUN/Creatinine Ratio Glucose POC Glucose 152 H 158 H 145 H Calcium Magnesium 04/26/25 04/27/25 04/27/25 19:31 07:10 07:16 WBC 6.89 RBC 4.96 Hgb 12.8 L Hct 39.7 L MCV 80.0 MCH 25.8 MCHC 32.2 RDW Std Deviation 38.4 RDW Coeff of Oziel 13.4 Plt Count 212 MPV 10.3 Sodium 133 L Potassium 3.7 Chloride 101 Carbon Dioxide 24 Anion Gap 8 BUN 16 Creatinine 1.40 Est Cr Clr Drug Dosing 64.7 eGFR 58.26 BUN/Creatinine Ratio 11.4 Glucose 124 H POC Glucose 180 H 120 H Calcium 8.8 Magnesium 1.9 Current Inpatient Medications Current Inpatient Medications: Current Inpatient Medications Apixaban (Apixaban 5 Mg Tablet) 5 mg PO BID [facility] Stop: 05/26/25 08:59 Last Admin: 04/27/25 08:16 Dose: 5 mg Aripiprazole (Aripiprazole 5 Mg Tab) 5 mg PO QAM [facility] Stop: 05/25/25 08:59 Last Admin: 04/27/25 08:16 Dose: 5 mg Aspirin (Aspirin 81 Mg Ectab) 81 mg PO QAM [facility] Stop: 05/25/25 08:59 Last Admin: 04/27/25 08:19 Dose: 81 mg Cyanocobalamin (Cyanocobalamin (B-12) 500 Mcg Tablet) 1,000 mcg PO DAILY [facility] Stop: 05/25/25 08:59 Last Admin: 04/27/25 08:17 Dose: 1,000 mcg Dextrose (Dextrose 50% 50 Ml Syringe) 25 - 50 ml IV UD PRN; Protocol PRN Reason: Hypoglycemia Protocol Stop: 05/24/25 22:31 Fluoxetine HCl (Fluoxetine Hcl 20 Mg Cap) 40 mg PO QAM [facility] Stop: 05/25/25 08:59 Last Admin: 04/27/25 08:17 Dose: 40 mg Glucagon (Glucagon For Inj 1 Mg Vial) 1 mg SQ UD PRN; Protocol PRN Reason: Hypoglycemia Protocol Stop: 05/24/25 22:31 Glucose (Glucose 40% Gel 15 Gm Tube) 15 - 30 gm PO UD PRN; Protocol PRN Reason: Hypoglycemia Protocol Stop: 05/24/25 22:31 Glucose (Glucose 10 Tab/Tube) 4 - 8 tab PO UD PRN; Protocol PRN Reason: Hypoglycemia Protocol Stop: 05/24/25 22:31 Hydroxyzine HCl (Hydroxyzine Hcl 10 Mg Tab) 10 mg PO QID PRN PRN Reason: Anxiety Stop: 05/24/25 20:56 Promethazine HCl (Phenergan) 6.25 mg in 50.25 mls @ 201 mls/hr IV Q6H PRN PRN Reason: Nausea And Vomiting Stop: 05/24/25 20:55 Insulin Aspart (Insulin Aspart Per Unit Charge) 0 units SC ACHS [facility] Stop: 05/25/25 11:29 Last Admin: 04/27/25 08:16 Dose: 3 units Insulin Glargine (Lantus Per Unit Charge) 5 units SQ HS [facility] Stop: 05/25/25 20:59 Last Admin: 04/26/25 20:32 Dose: 5 units Isosorbide Mononitrate (Isosorbide [place] Extended Rel 30 Mg Tabcr) 30 mg PO DAILY [facility] Stop: 05/25/25 08:59 Last Admin: 04/27/25 08:19 Dose: 30 mg Lactobacillus Acidophilus (Advanced Probiotic 625 Mg Capsule) 1,250 mg PO DAILY [facility] Stop: 05/25/25 08:59 Last Admin: 04/27/25 08:16 Dose: 1,250 mg Levothyroxine Sodium (Levothyroxine Sodium 175 Mcg Tablet) 175 mcg PO DAILYBB [facility] Stop: 05/25/25 06:29 Last Admin: 04/27/25 05:30 Dose: 175 mcg Lisinopril (Lisinopril 5 Mg Tab) 5 mg PO QAM [facility] Stop: 05/25/25 08:59 Last Admin: 04/27/25 08:19 Dose: 5 mg Metoprolol Succinate (Metoprolol Succ 25mg Ext Rel Tab) 25 mg PO DAILY [facility] Stop: 05/27/25 08:59 Last Admin: 04/27/25 08:18 Dose: 25 mg Miscellaneous (Carbohydrates For Hypoglycemia ) 15 - 30 gm PO UD PRN PRN Reason: Hypoglycemia Protocol Stop: 05/24/25 22:31 Morphine Sulfate (Morphine Sulfate 4 Mg/Ml 1 Ml Carp\\Vial) 4 mg IV Q4H PRN PRN Reason: Pain Stop: 05/08/25 20:55 Oxycodone HCl (Oxycodone Hcl Ir 5 Mg Tab (Immediate Release)) 5 mg PO Q4H PRN PRN Reason: Pain Stop: 05/08/25 20:55 Pantoprazole Sodium (Pantoprazole 40 Mg Tab) 40 mg PO QAM [facility] Stop: 05/25/25 08:59 Last Admin: 04/27/25 08:17 Dose: 40 mg Rosuvastatin Calcium (Rosuvastatin Calcium 10 Mg Tab) 10 mg PO QAM [facility] Stop: 05/25/25 08:59 Last Admin: 04/27/25 08:17 Dose: 10 mg Sertraline HCl (Sertraline Hcl 50 Mg Tablet) 150 mg PO QAM [facility] Stop: 05/25/25 08:59 Last Admin: 04/27/25 08:19 Dose: 150 mg Tamsulosin HCl (Tamsulosin Hcl 0.4 Mg Cap) 0.4 mg PO DAILY [facility] Stop: 05/25/25 08:59 Last Admin: 04/27/25 08:19 Dose: 0.4 mg
--- NOTE | 2025-04-27 09:20 | Hospitalist Progress Note ---
Date of Service April 27, 2025 Assessment & Plan (1) Chest pain: Plan: In summary, 60-year-old male with a history of multivessel coronary artery disease, stroke, major recurrent depression, chronic systolic heart failure, hypertension, hyperlipidemia and obstructive sleep apnea admitted with chest pain. Chest pain Relieved by nitroglycerin in ED. Cardiology consult appreciated. S/P cardiac cath in 2023 on 03/09/24 demonstrating severe multivessel CAD demonstrating severe multivessel coronary artery disease that was felt to have poor surgical targets. Echo revealed LVEF 40-45% with large apical, inferior, and posterior wall motion abnormality. He was started on appropriate medical therapies upon that discharge, however per outpatient notes patient repeatedly stopped all medications. ACS ruled out Echocardiogram done here shows a large apical thrombus Chronic systolic heart failure EF (40 to 45%, TTE 2024). He appears to be euvolemic at present Given one dose of IV lasix on admission Pt is noncompliant with meds Restarted ASA, statin, metoprolol succinate, lisinopril, isosorbide. Watch I&O Current Echo shows a large apical thrombus and further decrease in left belle tricular ejection fraction of 20- 25% with diffuse hypokinesis. Patient was transitioned from IV heparin to apixaban HTN Follow BPs BPs on lower side and bradycardia down into the 30s and 40s -> metoprolol dose decreased to 25 mg daily. HLD restart statin--->Crestor CHARLEEN with CPAP intolerance Prior CVA left hemiparesis Follows with Neuro Had recent MRI DM2 insulin requiring, well-controlled as of recent hemoglobin A1c of 6.18 January 2025 Continue CCD HHD SSI if needed Hypothyroidism. TSH markedly elevated secondary to noncompliance Thyroid replacement restarted Chronic anemia Hemoglobin at baseline Trend labs Severe depression with suicidal ideations Consulted psychiatry. Patient will need inpatient psychiatric care. Discussed the case with psychiatry. They feel the patient has too many medical complex issues for our unit and are searching for other outside units/ may need rehab. Will further discuss tmrw. Suicide precautions Recurrent Falls PT OT consults DVT prophylaxis. On apixaban DNR Patient brother - Mr. Jose Corbin, contact #[phone]. Admission and Anticipated Discharge Date Admission Date: April 24, 2025 Subjective Pt seen in follow up, seen this PM w/ RN at the bedside and 1:1 sitter Pt lying in bed in NAD. Denies any more chest pain, reports chronic shortness of breath, he is currently on RA and saturating 98%. Patient was started back on some of his cardiac meds. Denies any abd.pain, n/v Still admits to severe depression, and wish to . Discussed w/ psychiatry - they felt pt confused overnight/ this AM - decreased his psych meds. On my evaluation pt awake and answering appropriately. RN present at the bedside with me. Review of Systems Review of Systems: All systems reviewed & are unremarkable except as noted in Subjective Physical Exam Physical Exam: General- adult obese male in NAD He has a chronic ill appearance and flat affect Eyes- PERRL, EOMI, anicteric Neck- supple Lungs-diminished breath sounds in the bases otherwise clear to auscultation b/l Heart- regular rhythm Abdomen- normal bowel sounds, soft, nontender Extremities- no pretibial edema, no calf tenderness Neuro- alert, oriented x 3; PERRL, EOMI; very flat affect Skin- warm & dry Results & Data Results & Data Vital Signs (Past 12 Hours) Vital Signs Temp Pulse Pulse Resp BP Pulse Ox Pulse Ox 04/27/25 07:07 36.4 C L 62 16 128/84 99 04/27/25 05:30 59 L 04/27/25 04:21 36.5 C 58 L 16 114/61 97 04/26/25 22:36 36.5 C 59 L 18 101/60 96 04/26/25 22:00 96 04/26/25 21:40 58 L O2 Del Method O2 Del Method 04/27/25 07:07 Room Air 04/27/25 05:30 04/27/25 04:21 Room Air 04/26/25 22:36 Room Air 04/26/25 22:00 Room Air 04/26/25 21:40 Laboratory Results 04/27/25 04/27/25 04/26/25 Range/Units 07:16 07:10 19:31 WBC 6.89 (4.8-10.8) K/ul RBC 4.96 (4.70-6.10) M/uL Hgb 12.8 L (14.0-18.0) g/dl Hct 39.7 L (42.0-52.0) % MCV 80.0 (80.0-100.0) fL MCH 25.8 (25.0-34.0) pg MCHC 32.2 (32.0-36.0) g/dL RDW Std Deviation 38.4 (36.4-46.3) fL RDW Coeff of Oziel 13.4 (11.5-14.5) % Plt Count 212 (130-400) K/uL MPV 10.3 (9.4-12.4) fL Sodium 133 L (136-145) mmol/L Potassium 3.7 (3.5-5.1) mmol/L Chloride 101 (98-107) mmol/L Carbon Dioxide 24 (21-32) mmol/L Anion Gap 8 (3-11) BUN 16 (6-23) mg/dl Creatinine 1.40 (0.6-1.4) mg/dl Est Cr Clr Drug Dosing 64.7 ml/min eGFR 58.26 BUN/Creatinine Ratio 11.4 (10-20) Glucose 124 H (70-99(Fasting)) mg/dl POC Glucose 120 H 180 H (70-99) mg/dl Calcium 8.8 (8.6-10.3) mg/dl Magnesium 1.9 (1.7-2.4) mg/dl 04/26/25 04/26/25 04/26/25 Range/Units 15:58 10:58 07:13 WBC (4.8-10.8) K/ul RBC (4.70-6.10) M/uL Hgb (14.0-18.0) g/dl Hct (42.0-52.0) % MCV (80.0-100.0) fL MCH (25.0-34.0) pg MCHC (32.0-36.0) g/dL RDW Std Deviation (36.4-46.3) fL RDW Coeff of Oziel (11.5-14.5) % Plt Count (130-400) K/uL MPV (9.4-12.4) fL Sodium (136-145) mmol/L Potassium (3.5-5.1) mmol/L Chloride (98-107) mmol/L Carbon Dioxide (21-32) mmol/L Anion Gap (3-11) BUN (6-23) mg/dl Creatinine (0.6-1.4) mg/dl Est Cr Clr Drug Dosing ml/min eGFR BUN/Creatinine Ratio (10-20) Glucose (70-99(Fasting)) mg/dl POC Glucose 145 H 158 H 152 H (70-99) mg/dl Calcium (8.6-10.3) mg/dl Magnesium (1.7-2.4) mg/dl Medications Administered Current Inpatient Medications Apixaban (Apixaban 5 Mg Tablet) 5 mg PO BID [facility] Stop: 05/26/25 08:59 Last Admin: 04/27/25 08:16 Dose: 5 mg Aripiprazole (Aripiprazole 2 Mg Tab) 2 mg PO QAM [facility] Stop: 05/28/25 08:59 Aspirin (Aspirin 81 Mg Ectab) 81 mg PO [facility] Stop: 05/25/25 08:59 Last Admin: 04/27/25 08:19 Dose: 81 mg Cyanocobalamin (Cyanocobalamin (B-12) 500 Mcg Tablet) 1,000 mcg PO DAILY [facility] Stop: 05/25/25 08:59 Last Admin: 04/27/25 08:17 Dose: 1,000 mcg Dextrose (Dextrose 50% 50 Ml Syringe) 25 - 50 ml IV UD PRN; Protocol PRN Reason: Hypoglycemia Protocol Stop: 05/24/25 22:31 Fluoxetine HCl (Fluoxetine Hcl 20 Mg Cap) 40 mg PO [facility] Stop: 05/25/25 08:59 Last Admin: 04/27/25 08:17 Dose: 40 mg Glucagon (Glucagon For Inj 1 Mg Vial) 1 mg SQ UD PRN; Protocol PRN Reason: Hypoglycemia Protocol Stop: 05/24/25 22:31 Glucose (Glucose 40% Gel 15 Gm Tube) 15 - 30 gm PO UD PRN; Protocol PRN Reason: Hypoglycemia Protocol Stop: 05/24/25 22:31 Glucose (Glucose 10 Tab/Tube) 4 - 8 tab PO UD PRN; Protocol PRN Reason: Hypoglycemia Protocol Stop: 05/24/25 22:31 Hydroxyzine HCl (Hydroxyzine Hcl 10 Mg Tab) 10 mg PO QID PRN PRN Reason: Anxiety Stop: 05/24/25 20:56 Promethazine HCl (Phenergan) 6.25 mg in 50.25 mls @ 201 mls/hr IV Q6H PRN PRN Reason: Nausea And Vomiting Stop: 05/24/25 20:55 Insulin Aspart (Insulin Aspart Per Unit Charge) 0 units SC [facility] Stop: 05/25/25 11:29 Last Admin: 04/27/25 08:16 Dose: 3 units Insulin Glargine (Lantus Per Unit Charge) 5 units SQ HS [facility] Stop: 05/25/25 20:59 Last Admin: 04/26/25 20:32 Dose: 5 units Isosorbide Mononitrate (Isosorbide [place] Extended Rel 30 Mg Tabcr) 30 mg PO DAILY [facility] Stop: 05/25/25 08:59 Last Admin: 04/27/25 08:19 Dose: 30 mg Lactobacillus Acidophilus (Advanced Probiotic 625 Mg Capsule) 1,250 mg PO DAILY [facility] Stop: 05/25/25 08:59 Last Admin: 04/27/25 08:16 Dose: 1,250 mg Levothyroxine Sodium (Levothyroxine Sodium 175 Mcg Tablet) 175 mcg PO DAILYBB [facility] Stop: 05/25/25 06:29 Last Admin: 04/27/25 05:30 Dose: 175 mcg Lisinopril (Lisinopril 5 Mg Tab) 5 mg PO QAM [facility] Stop: 05/25/25 08:59 Last Admin: 04/27/25 08:19 Dose: 5 mg Metoprolol Succinate (Metoprolol Succ 25mg Ext Rel Tab) 25 mg PO DAILY [facility] Stop: 05/27/25 08:59 Last Admin: 04/27/25 08:18 Dose: 25 mg Miscellaneous (Carbohydrates For Hypoglycemia ) 15 - 30 gm PO UD PRN PRN Reason: Hypoglycemia Protocol Stop: 05/24/25 22:31 Morphine Sulfate (Morphine Sulfate 4 Mg/Ml 1 Ml Carp\Vial) 4 mg IV Q4H PRN PRN Reason: Pain Stop: 05/08/25 20:55 Oxycodone HCl (Oxycodone Hcl Ir 5 Mg Tab (Immediate Release)) 5 mg PO Q4H PRN PRN Reason: Pain Stop: 05/08/25 20:55 Pantoprazole Sodium (Pantoprazole 40 Mg Tab) 40 mg PO QAM [facility] Stop: 05/25/25 08:59 Last Admin: 04/27/25 08:17 Dose: 40 mg Rosuvastatin Calcium (Rosuvastatin Calcium 10 Mg Tab) 10 mg PO QAM [facility] Stop: 05/25/25 08:59 Last Admin: 04/27/25 08:17 Dose: 10 mg Sertraline HCl (Sertraline Hcl 50 Mg Tablet) 50 mg PO QAM [facility] Stop: 05/28/25 08:59 Tamsulosin HCl (Tamsulosin Hcl 0.4 Mg Cap) 0.4 mg PO DAILY [facility] Stop: 05/25/25 08:59 Last Admin: 04/27/25 08:19 Dose: 0.4 mg (1) Chest pain Chest pain type: unspecified Qualified Code(s): R07.9 - Chest pain, unspecified
--- NOTE | 2025-04-27 11:27 | Cardiology Progress Note ---
Date of Service April 27, 2025 Assessment & Plan (1) CAD (coronary artery disease): (2) Nonadherence to medication: (3) Hypertension: (4) Heart failure with reduced ejection fraction (HFrEF): (5) Weakness: (6) Ischemic cardiomyopathy: (7) LV (left ventricular) mural thrombus: Plan 04/25/25 Patient is a complex 60 year old male admitted with weakness, ambulatory dysfunction, chest pain/pressure with history of coronary artery disease per cath in February 2024. At that time, he was found to have multivessel CAD and surgical revascularization was recommended. However he had poor surgical targets and med management recommended. Patient has a long history of depression/suicidal ideation and non compliance with medications. Apparently he stopped all of his oral medications several months ago. Since that time, patient reported intermittent chest pain/pressure, occurring at rest or with walking. Since admission, he has had HS troponin negative x3. EKG demonstrating sinus with 1st degree AV block and T wave inversion in lateral leads, stable from prior EKG's. Echo ordered and pending. Recommend continuing medical management for ongoing coronary artery disease. Resume ASA 81 mg daily, metoprolol succinate 50 mg daily, rosuvastatin, isosorbide 30 mg daily, and lisinopril. these were prior home medications. He was treated yesterday with one dose IV lasix 40 mg with good urine output. Appears euvolemic currently Consider low dose loop diuretic and/or spironolactone as well. Could titrate isosorbide if needed pending anginal complaints. Recommend psych evaluation for suicidal ideations. He has been following with neurology for ongoing weakness and ambulatory dysfunction. This was thought to be related to his DDD/spinal stenosis. At this time, would not recommend further invasive cardiac testing. Will monitor patient as he is resumed on his oral medications. 04/26/25 Patient diagnosed with LV apical thrombus yesterday on echo Also diagnosed with worsening of his LV systolic function, now severely reduced at 20-25%, consistent with ischemic cardiomyopathy and left to right interatrial shunt. Prior cath in 2023 with severe multivessel disease with poor surgical targets for intervention or bypass surgery. Med management had been recommended. Unfortunately patient stopped all medications approx 3 months ago. Recommendations: Transition from IV heparin to anticoagulation for LV thrombus. Started on Eliquis 5 mg BID. Case management to check on cost/affordability. GDMT resumed during this admission - Continue ASA, statin, metoprolol succinate, lisinopril, isosorbide. BP is borderline low, so he is likely at max tolerated doses of these medications. Can consider transitioning to Entresto as an outpatient (if affordable) and if patient is compliant with follow up. If tolerated, could consider initiation of spironolactone. Mild renal insufficiency noted today with creatinine of 1.4. Will not start today. Psych consulted for suicidal ideations. Currently 1:1 sitter. Plans to possibly transfer to psych unit once medically stable. Anticipate can be transferred within 24 hours 04/27/25 Patient is tolerating GDMT including ASA, statin, metoprolol succinate, lisinopril, isosorbide. He appears euvolemic. consider future spironolactone/Jardiance. Mild renal insufficiency and hyponatremia noted, so will not initiate at this time. BP and HR stable. No arrhythmias on telemetry. Started on Eliquis for LV thrombus. Conservative medical management recommended at this time for severe ischemic cardiomyopathy. Prior cath last year with poor surgical or interventional targets. At this time, ongoing psych treatment recommended for suicidal ideations. would be acceptable to transfer to psych unit for ongoing therapy. PT/OT also recommended. Will arrange cardiology f/u in a few weeks and continue to titrate GDMT as tolerated. I spent a total of 30 minutes on the date of service in preparation, delivery, and documentation of the care provided to this patient, excluding any time spent in the performance of separately billed services. Bing Oconnor PA-C Department of Cardiology, [facility] This chart was completed in part utilizing Speech Voice Recognition Software. Grammatical errors, random word insertions, pronoun errors, and incomplete sentences are an occasional consequence of this system due to software limitations, ambient noise, and hardware issues. Any formal questions or concerns about the content, text, or information contained within the body of this dictation should be directly addressed to the provider for clarification. Admission and Anticipated Discharge Date Admission Date: April 24, 2025 Supervising Physician Co-Signing Physician Notes I have personally performed a history and physical examination on the patient. I have reviewed the advance practitioner's documentation, and I agree with, and take responsibility for the plan of care. I spent a total of 20 minutes on the date of service in preparation, delivery, and documentation of the care provided to this patient, excluding any time spent in the performance of separately billed services. Buck Parker, Subjective Patient resting in bed. Voices no acute cardiac complaints. No chest pain, dyspnea, edema, palpitations, dizziness. Tolerating medications that have been resumed. Review of Systems Review of Systems: All systems reviewed & are unremarkable except as noted in HPI & below Physical Exam Constitutional: WD/WN, vitals as above + obese; no acute distress Neck: + thick neck Respiratory: no labored breathing and no cough Cardiovascular: Rate/Rhythm: regular rate and regular rhythm Heart Sounds: no murmur (distant heart sounds) Extremities: no edema Gastrointestinal (Abdomen): Inspection/Auscultation: abdomen normal to inspection Percussion/Palpation: abdomen soft; abdomen nontender Neurologic: PERRL, EOMI, accommodation nl, no face palsy, no dysarthria Psychiatric: Orientation: alert and oriented x 3 Mood: + depressed mood Results & Data Vital Signs (Past 12 Hours) Vital Signs Temp Pulse Pulse Resp BP Pulse Ox O2 Del Method 04/27/25 07:07 36.4 C L 62 16 128/84 99 Room Air 04/27/25 05:30 59 L 04/27/25 04:21 36.5 C 58 L 16 114/61 97 Room Air Laboratory Results CBC 04/27/25 Range/Units 07:16 WBC 6.89 (4.8-10.8) K/ul RBC 4.96 (4.70-6.10) M/uL Hgb 12.8 L (14.0-18.0) g/dl Hct 39.7 L (42.0-52.0) % Plt Count 212 (130-400) K/uL Comprehensive Metabolic Panel 04/27/25 Range/Units 07:16 Sodium 133 L (136-145) mmol/L Potassium 3.7 (3.5-5.1) mmol/L Chloride 101 (98-107) mmol/L Carbon Dioxide 24 (21-32) mmol/L BUN 16 (6-23) mg/dl Creatinine 1.40 (0.6-1.4) mg/dl Glucose 124 H (70-99(Fasting)) mg/dl Calcium 8.8 (8.6-10.3) mg/dl Intake and Output 04/26/25 04/27/25 04/27/25 22:59 06:59 14:59 Intake Total 200 / 927.733 Balance 200 / 927.733 Intake: Oral 200 / 680 Other: # Unmeasured Voids 1 Diagnostic Findings Telemetry reviewed: NSR in the 60-80's. No arrhythmias Medications Administered Current Inpatient Medications Apixaban (Apixaban 5 Mg Tablet) 5 mg PO BID [facility] Stop: 05/26/25 08:59 Last Admin: 04/27/25 08:16 Dose: 5 mg Aripiprazole (Aripiprazole 2 Mg Tab) 2 mg PO QAM [facility] Stop: 05/28/25 08:59 Aspirin (Aspirin 81 Mg Ectab) 81 mg PO QAM [facility] Stop: 05/25/25 08:59 Last Admin: 04/27/25 08:19 Dose: 81 mg Cyanocobalamin (Cyanocobalamin (B-12) 500 Mcg Tablet) 1,000 mcg PO DAILY [facility] Stop: 05/25/25 08:59 Last Admin: 04/27/25 08:17 Dose: 1,000 mcg Dextrose (Dextrose 50% 50 Ml Syringe) 25 - 50 ml IV UD PRN; Protocol PRN Reason: Hypoglycemia Protocol Stop: 05/24/25 22:31 Fluoxetine HCl (Fluoxetine Hcl 20 Mg Cap) 40 mg PO QAM [facility] Stop: 05/25/25 08:59 Last Admin: 04/27/25 08:17 Dose: 40 mg Glucagon (Glucagon For Inj 1 Mg Vial) 1 mg SQ UD PRN; Protocol PRN Reason: Hypoglycemia Protocol Stop: 05/24/25 22:31 Glucose (Glucose 40% Gel 15 Gm Tube) 15 - 30 gm PO UD PRN; Protocol PRN Reason: Hypoglycemia Protocol Stop: 05/24/25 22:31 Glucose (Glucose 10 Tab/Tube) 4 - 8 tab PO UD PRN; Protocol PRN Reason: Hypoglycemia Protocol Stop: 05/24/25 22:31 Hydroxyzine HCl (Hydroxyzine Hcl 10 Mg Tab) 10 mg PO QID PRN PRN Reason: Anxiety Stop: 05/24/25 20:56 Promethazine HCl (Phenergan) 6.25 mg in 50.25 mls @ 201 mls/hr IV Q6H PRN PRN Reason: Nausea And Vomiting Stop: 05/24/25 20:55 Insulin Aspart (Insulin Aspart Per Unit Charge) 0 units SC ACHS [facility] Stop: 05/25/25 11:29 Last Admin: 04/27/25 08:16 Dose: 3 units Insulin Glargine (Lantus Per Unit Charge) 5 units SQ HS [facility] Stop: 05/25/25 20:59 Last Admin: 04/26/25 20:32 Dose: 5 units Isosorbide Mononitrate (Isosorbide [place] Extended Rel 30 Mg Tabcr) 30 mg PO DAILY [facility] Stop: 05/25/25 08:59 Last Admin: 04/27/25 08:19 Dose: 30 mg Lactobacillus Acidophilus (Advanced Probiotic 625 Mg Capsule) 1,250 mg PO DAILY [facility] Stop: 05/25/25 08:59 Last Admin: 04/27/25 08:16 Dose: 1,250 mg Levothyroxine Sodium (Levothyroxine Sodium 175 Mcg Tablet) [facility] Stop: 05/25/25 06:29 Last Admin: 04/27/25 05:30 Dose: 175 mcg Lisinopril (Lisinopril 5 Mg Tab) 5 mg PO QAM [facility] Stop: 05/25/25 08:59 Last Admin: 04/27/25 08:19 Dose: 5 mg Metoprolol Succinate (Metoprolol Succ 25mg Ext Rel Tab) 25 mg PO DAILY [facility] Stop: 05/27/25 08:59 Last Admin: 04/27/25 08:18 Dose: 25 mg Miscellaneous (Carbohydrates For Hypoglycemia ) 15 - 30 gm PO UD PRN PRN Reason: Hypoglycemia Protocol Stop: 05/24/25 22:31 Morphine Sulfate (Morphine Sulfate 4 Mg/Ml 1 Ml Carp\Vial) 4 mg IV Q4H PRN PRN Reason: Pain Stop: 05/08/25 20:55 Oxycodone HCl (Oxycodone Hcl Ir 5 Mg Tab (Immediate Release)) 5 mg PO Q4H PRN PRN Reason: Pain Stop: 05/08/25 20:55 Pantoprazole Sodium (Pantoprazole 40 Mg Tab) 40 mg PO QAM [facility] Stop: 05/25/25 08:59 Last Admin: 04/27/25 08:17 Dose: 40 mg Rosuvastatin Calcium (Rosuvastatin Calcium 10 Mg Tab) 10 mg PO QAM [facility] Stop: 05/25/25 08:59 Last Admin: 04/27/25 08:17 Dose: 10 mg Sertraline HCl (Sertraline Hcl 50 Mg Tablet) 50 mg PO QAM [facility] Stop: 05/28/25 08:59 Tamsulosin HCl (Tamsulosin Hcl 0.4 Mg Cap) 0.4 mg PO DAILY [facility] Stop: 05/25/25 08:59 Last Admin: 04/27/25 08:19 Dose: 0.4 mg PG Care Time/CCT Total # of Minutes Spent Total Time Spent with Patient: Total time spent is greater than 50% in coordination of care (as documented) at patient's floor/unit and/or counseling patient: 30 Coding Level of Care Code 88369 SUB INP/OBS CARE 3/50MIN Diagnoses Coronary artery disease of [place] artery of [place] heart with stable angina pectoris I25.118 Associated angina: with stable angina Coronary Disease-Associated Artery/Lesion type: [place] artery [place] vs. transplanted heart: [place] heart Nonadherence to medication Z91.148 Hypertension I10 Hypertension type: unspecified Heart failure with reduced ejection fraction (HFrEF) I50.20 Weakness R53.1 Ischemic cardiomyopathy I25.5 LV (left ventricular) mural thrombus I51.3 Time Spent (min) 50 Comment 30 minutes spend by Patrice Oconnor PA-C, 20 minutes by April Parker DO (1) CAD (coronary artery disease) Associated angina: with stable angina Coronary Disease-Associated Artery/Lesion type: [place] artery [place] vs. transplanted heart: [place] heart Qualified Code(s): I25.118 - Atherosclerotic heart disease of [place] coronary artery with other forms of angina pectoris (3) Hypertension Hypertension type: unspecified Qualified Code(s): I10 - Essential (primary) hypertension
[2025-04-28 07:00] LABS: Hematocrit (blood only) 38.5 % (42.0-52.0); Hemoglobin 12.9 g/dl (14.0-18.0); Mean Corpuscular Hemoglobin 26.3 pg (25.0-34.0); Mean Corpuscular Volume 78.6 fL (80.0-100.0); Platelet Count 221 K/uL (130-400); RDW Standard Deviation 38.5 fL (36.4-46.3); Red Blood Count 4.90 M/uL (4.70-6.10); White Blood Count 6.90 K/ul (4.8-10.8)
[2025-04-28 07:19] LABS: Anion Gap 9.0 (3-11); Blood Urea Nitrogen 16.0 mg/dl (6-23); Calcium 8.7 mg/dl (8.6-10.3); Carbon Dioxide 22.0 mmol/L (21-32); Chloride 101.0 mmol/L (98-107); Creatinine Clr Calc Pharmacy 69.7 ml/min; Glucose 121.0 mg/dl (70-99(Fasting)); Magnesium 1.9 mg/dl (1.7-2.4); Potassium 3.9 mmol/L (3.5-5.1); Sodium 132.0 mmol/L (136-145)
[2025-04-28] MEDS: SERTRALINE HCL 50 MG TABLET PO SCH (08:07)
--- NOTE | 2025-04-28 11:23 | Cardiology Progress Note ---
Date of Service April 28, 2025 Assessment & Plan (1) CAD (coronary artery disease): (2) Nonadherence to medication: (3) Hypertension: (4) Heart failure with reduced ejection fraction (HFrEF): (5) Weakness: (6) Ischemic cardiomyopathy: (7) LV (left ventricular) mural thrombus: Plan 04/25/25 Patient is a complex 60 year old male admitted with weakness, ambulatory dysfunction, chest pain/pressure with history of coronary artery disease per cath in February 2024. At that time, he was found to have multivessel CAD and surgical revascularization was recommended. However he had poor surgical targets and med management recommended. Patient has a long history of depression/suicidal ideation and non compliance with medications. Apparently he stopped all of his oral medications several months ago. Since that time, patient reported intermittent chest pain/pressure, occurring at rest or with walking. Since admission, he has had HS troponin negative x3. EKG demonstrating sinus with 1st degree AV block and T wave inversion in lateral leads, stable from prior EKG's. Echo ordered and pending. Recommend continuing medical management for ongoing coronary artery disease. Resume ASA 81 mg daily, metoprolol succinate 50 mg daily, rosuvastatin, isosorbide 30 mg daily, and lisinopril. these were prior home medications. He was treated yesterday with one dose IV lasix 40 mg with good urine output. Appears euvolemic currently Consider low dose loop diuretic and/or spironolactone as well. Could titrate isosorbide if needed pending anginal complaints. Recommend psych evaluation for suicidal ideations. He has been following with neurology for ongoing weakness and ambulatory dysfunction. This was thought to be related to his DDD/spinal stenosis. At this time, would not recommend further invasive cardiac testing. Will monitor patient as he is resumed on his oral medications. 04/26/25 Patient diagnosed with LV apical thrombus yesterday on echo Also diagnosed with worsening of his LV systolic function, now severely reduced at 20-25%, consistent with ischemic cardiomyopathy and left to right interatrial shunt. Prior cath in 2023 with severe multivessel disease with poor surgical targets for intervention or bypass surgery. Med management had been recommended. Unfortunately patient stopped all medications approx 3 months ago. Recommendations: Transition from IV heparin to anticoagulation for LV thrombus. Started on Eliquis 5 mg BID. Case management to check on cost/affordability. GDMT resumed during this admission - Continue ASA, statin, metoprolol succinate, lisinopril, isosorbide. BP is borderline low, so he is likely at max tolerated doses of these medications. Can consider transitioning to Entresto as an outpatient (if affordable) and if patient is compliant with follow up. If tolerated, could consider initiation of spironolactone. Mild renal insufficiency noted today with creatinine of 1.4. Will not start today. Psych consulted for suicidal ideations. Currently 1:1 sitter. Plans to possibly transfer to psych unit once medically stable. Anticipate can be transferred within 24 hours 04/27/25 Patient is tolerating GDMT including ASA, statin, metoprolol succinate, lisinopril, isosorbide. He appears euvolemic. consider future spironolactone/Jardiance. Mild renal insufficiency and hyponatremia noted, so will not initiate at this time. BP and HR stable. No arrhythmias on telemetry. Started on Eliquis for LV thrombus. Conservative medical management recommended at this time for severe ischemic cardiomyopathy. Prior cath last year with poor surgical or interventional targets. At this time, ongoing psych treatment recommended for suicidal ideations. would be acceptable to transfer to psych unit for ongoing therapy. PT/OT also recommended. Will arrange cardiology f/u in a few weeks and continue to titrate GDMT as tolerated. 04/28/25: Metoprolol reduced yesterday to 25 mg daily due to concerns regarding dizziness/confusion/fatigue. BP/HR remains well controlled. No arrhythmias on telemetry. Continue low dose lisinopril 5 mg daily. Consideration for future transition to Entreo as outpatient. Appears euvolemic. Consider future spironolactone and Jardiance as well if tolerated. Continue Eliquis for LV thrombus. Conservative therapies recommended for ischemic cardiomyopathy. Prior cath demonstrating severe multivessel disease with poor surgical targets. PT/OT recommended. There is discussion about patient needing physical therapy and rehab, but he also needs psych rehab for suicidal ideation. Case management to assist. Case discussed with Dr. Parker I spent a total of 30 minutes on the date of service in preparation, delivery, and documentation of the care provided to this patient, excluding any time spent in the performance of separately billed services. Bing Oconnor PA-C Department of Cardiology, [facility] This chart was completed in part utilizing Speech Voice Recognition Software. Grammatical errors, random word insertions, pronoun errors, and incomplete sentences are an occasional consequence of this system due to software limitations, ambient noise, and hardware issues. Any formal questions or c oncerns about the content, text, or information contained within the body of this dictation should be directly addressed to the provider for clarification. Admission and Anticipated Discharge Date Admission Date: April 28, 2025 Supervising Physician Co-Signing Physician Notes I have personally performed a history and physical examination on the patient. I have reviewed the advance practitioner's documentation, and I agree with, and take responsibility for the plan of care. Flat affect noted. Telemetry with sinus rhythm in the 60s I spent a total of 20 minutes on the date of service in preparation, delivery, and documentation of the care provided to this patient, excluding any time spent in the performance of separately billed services. Buck Parker, Subjective Patient sleeping in bed upon entering the room. Remains 1:1 with nursing scheduler for suicidal precautions. Awakens easily. Feels ok. Voices no acute concerns. Nursing staff reports he did have PT/OT yesterday. They try to get him out of bed, but he just wants to "sleep". Review of Systems Review of Systems: All systems reviewed & are unremarkable except as noted in HPI & below Physical Exam Constitutional: WD/WN, vitals as above + obese; no acute distress Neck: + thick neck Respiratory: no labored breathing and no cough Cardiovascular: Rate/Rhythm: regular rate and regular rhythm Heart Sounds: no murmur (distant heart sounds) Extremities: no edema Gastrointestinal (Abdomen): Inspection/Auscultation: abdomen normal to inspection Percussion/Palpation: abdomen soft; abdomen nontender Neurologic: PERRL, EOMI, accommodation nl, no face palsy, no dysarthria Psychiatric: Orientation: alert and oriented x 3 Mood: + depressed mood Results & Data Vital Signs (Past 12 Hours) Vital Signs Temp Pulse Pulse Resp BP Pulse Ox O2 Del Method 04/28/25 10:46 36.5 C 62 16 118/76 98 Room Air 04/28/25 07:01 36.4 C L 68 16 136/89 97 Room Air 04/28/25 05:52 64 04/28/25 02:23 36.8 C 72 16 141/95 H 96 Room Air 04/27/25 23:48 64 Laboratory Results CBC 04/28/25 Range/Units 06:32 WBC 6.90 (4.8-10.8) K/ul RBC 4.90 (4.70-6.10) M/uL Hgb 12.9 L (14.0-18.0) g/dl Hct 38.5 L (42.0-52.0) % Plt Count 221 (130-400) K/uL Comprehensive Metabolic Panel 04/28/25 Range/Units 06:32 Sodium 132 L (136-145) mmol/L Potassium 3.9 (3.5-5.1) mmol/L Chloride 101 (98-107) mmol/L Carbon Dioxide 22 (21-32) mmol/L BUN 16 (6-23) mg/dl Creatinine 1.30 (0.6-1.4) mg/dl Glucose 121 H (70-99(Fasting)) mg/dl Calcium 8.7 (8.6-10.3) mg/dl Intake and Output 04/27/25 04/28/25 04/28/25 22:59 06:59 14:59 Intake Total 240 / 360 120 / 360 Output Total 250 / 250 Balance 240 / 360 120 / 360 -250 / -250 Intake: Oral 240 / 360 120 / 360 Output: Urine 250 / 250 Diagnostic Findings Telemetry reviewed: NSR in the 60's. No arrhythmias Medications Administered Current Inpatient Medications Apixaban (Apixaban 5 Mg Tablet) 5 mg PO BID [facility] Stop: 05/26/25 08:59 Last Admin: 04/28/25 08:09 Dose: 5 mg Aripiprazole (Aripiprazole 2 Mg Tab) 2 mg PO QAM [facility] Stop: 05/28/25 08:59 Last Admin: 04/28/25 08:07 Dose: 2 mg Aspirin (Aspirin 81 Mg Ectab) 81 mg PO QAM [facility] Stop: 05/25/25 08:59 Last Admin: 04/28/25 08:09 Dose: 81 mg Cyanocobalamin (Cyanocobalamin (B-12) 500 Mcg Tablet) 1,000 mcg PO DAILY [facility] Stop: 05/25/25 08:59 Last Admin: 04/28/25 08:10 Dose: 1,000 mcg Dextrose (Dextrose 50% 50 Ml Syringe) 25 - 50 ml IV UD PRN; Protocol PRN Reason: Hypoglycemia Protocol Stop: 05/24/25 22:31 Fluoxetine HCl (Fluoxetine Hcl 20 Mg Cap) 40 mg PO QAM [facility] Stop: 05/25/25 08:59 Last Admin: 04/27/25 08:17 Dose: 40 mg Glucagon (Glucagon For Inj 1 Mg Vial) 1 mg SQ UD PRN; Protocol PRN Reason: Hypoglycemia Protocol Stop: 05/24/25 22:31 Glucose (Glucose 40% Gel 15 Gm Tube) 15 - 30 gm PO UD PRN; Protocol PRN Reason: Hypoglycemia Protocol Stop: 05/24/25 22:31 Glucose (Glucose 10 Tab/Tube) 4 - 8 tab PO UD PRN; Protocol PRN Reason: Hypoglycemia Protocol Stop: 05/24/25 22:31 Hydroxyzine HCl (Hydroxyzine Hcl 10 Mg Tab) 10 mg PO QID PRN PRN Reason: Anxiety Stop: 05/24/25 20:56 Promethazine HCl (Phenergan) 6.25 mg in 50.25 mls @ 201 mls/hr IV Q6H PRN PRN Reason: Nausea And Vomiting Stop: 05/24/25 20:55 Insulin Aspart (Insulin Aspart Per Unit Charge) 0 units SC ACHS [facility] Stop: 05/25/25 11:29 Last Admin: 04/28/25 08:06 Dose: 1 units Insulin Glargine (Lantus Per Unit Charge) 5 units SQ HS [facility] Stop: 05/25/25 20:59 Last Admin: 04/27/25 20:41 Dose: 5 units Isosorbide Mononitrate (Isosorbide [place] Extended Rel 30 Mg Tabcr) 30 mg PO DAILY [facility] Stop: 05/25/25 08:59 Last Admin: 04/28/25 08:08 Dose: 30 mg Lactobacillus Acidophilus (Advanced Probiotic 625 Mg Capsule) 1,250 mg PO DAILY [facility] Stop: 05/25/25 08:59 Last Admin: 04/28/25 08:08 Dose: 1,250 mg Levothyroxine Sodium (Levothyroxine Sodium 175 Mcg Tablet) 175 mcg PO DAILYBB [facility] Stop: 05/25/25 06:29 Last Admin: 04/28/25 06:44 Dose: 175 mcg Lisinopril (Lisinopril 5 Mg Tab) 5 mg PO QAM [facility] Stop: 05/25/25 08:59 Last Admin: 04/28/25 08:10 Dose: 5 mg Metoprolol Succinate (Metoprolol Succ 25mg Ext Rel Tab) 25 mg PO DAILY [facility] Stop: 05/27/25 08:59 Last Admin: 04/28/25 08:11 Dose: 25 mg Miscellaneous (Carbohydrates For Hypoglycemia ) 15 - 30 gm PO UD PRN PRN Reason: Hypoglycemia Protocol Stop: 05/24/25 22:31 Morphine Sulfate (Morphine Sulfate 4 Mg/Ml 1 Ml Carp\\Vial) 4 mg IV Q4H PRN PRN Reason: Pain Stop: 05/08/25 20:55 Oxycodone HCl (Oxycodone Hcl Ir 5 Mg Tab (Immediate Release)) 5 mg PO Q4H PRN PRN Reason: Pain Stop: 05/08/25 20:55 Pantoprazole Sodium (Pantoprazole 40 Mg Tab) 40 mg PO QAM [facility] Stop: 05/25/25 08:59 Last Admin: 04/28/25 08:07 Dose: 40 mg Rosuvastatin Calcium (Rosuvastatin Calcium 10 Mg Tab) 10 mg PO QAM [facility] Stop: 05/25/25 08:59 Last Admin: 04/28/25 08:09 Dose: 10 mg Sertraline HCl (Sertraline Hcl 50 Mg Tablet) 50 mg PO QAM [facility] Stop: 05/28/25 08:59 Last Admin: 04/28/25 08:07 Dose: 50 mg Tamsulosin HCl (Tamsulosin Hcl 0.4 Mg Cap) 0.4 mg PO DAILY [facility] Stop: 05/25/25 08:59 Last Admin: 04/28/25 08:08 Dose: 0.4 mg Coding [place] [address] SUB INP/OBS CARE 3/50MIN Patient Type Established History Comprehensive Exam Comprehensive Diagnoses Coronary artery disease of [place] artery of [place] heart with stable angina pectoris I25.118 Associated angina: with stable angina Coronary Disease-Associated Artery/Lesion type: [place] artery [place] vs. transplanted heart: [place] heart Nonadherence to medication Z91.148 Hypertension I10 Hypertension type: unspecified Heart failure with reduced ejection fraction (HFrEF) I50.20 Weakness R53.1 Ischemic cardiomyopathy I25.5 LV (left ventricular) mural thrombus I51.3 Time Spent (min) 50 Comment 30 minutes by Patrice Oconnor PA-C, 20 minutes by J Lemmon, DO (1) CAD (coronary artery disease) Associated angina: with stable angina Coronary Disease-Associated Artery/Lesion type: [place] artery [place] vs. transplanted heart: [place] heart Qualified Code(s): I25.118 - Atherosclerotic heart disease of [place] coronary artery with other forms of angina pectoris (3) Hypertension Hypertension type: unspecified Qualified Code(s): I10 - Essential (primary) hypertension
--- NOTE | 2025-04-28 11:56 | XRay Report ---
XR chest 1V portable CLINICAL HISTORY: follow up for chf COMPARISON STUDY: 04/24/2025 FINDINGS: Stable cardiomegaly without pulmonary vascular congestion. Inspiration is shallow. There is interval stranding opacity at the left lung base. No pleural effusion or pneumothorax. IMPRESSION: Atelectasis versus early pneumonia left lung base. ACT 112: Negative or not required by law. Electronically signed by: Jone Kwon M.D. 04/28/2025 11:55 AM
[2025-04-28] MEDS: CEFDINIR 300 MG CAP PO SCH (13:30)
--- NOTE | 2025-04-28 13:59 | Hospitalist Progress Note ---
Date of Service April 28, 2025 Assessment & Plan (1) Chest pain: Plan: In summary, 60-year-old male with a history of multivessel coronary artery disease, stroke, major recurrent depression, chronic systolic heart failure, hypertension, hyperlipidemia and obstructive sleep apnea admitted with chest pain. Chest pain Relieved by nitroglycerin in ED. Cardiology consult appreciated. S/P cardiac cath in 2023 on 03/09/24 demonstrating severe multivessel CAD demonstrating severe multivessel coronary artery disease that was felt to have poor surgical targets. Echo revealed LVEF 40-45% with large apical, inferior, and posterior wall motion abnormality. He was started on appropriate medical therapies upon that discharge, however per outpatient notes patient repeatedly stopped all medications. ACS ruled out Echocardiogram done here shows a large apical thrombus Chronic systolic heart failure EF (40 to 45%, TTE 2024). He appears to be euvolemic at present Given one dose of IV lasix on admission Pt is noncompliant with meds Restarted ASA, statin, metoprolol succinate, lisinopril, isosorbide. Watch I&O Current Echo shows a large apical thrombus and further decrease in left belle tricular ejection fraction of 20- 25% with diffuse hypokinesis. Patient was transitioned from IV heparin to apixaban HTN Follow BPs BPs on lower side and bradycardia down into the 30s and 40s -> metoprolol dose decreased to 25 mg daily. HLD restart statin--->Crestor CHARLEEN with CPAP intolerance Prior CVA left hemiparesis Follows with Neuro Had recent MRI DM2 insulin requiring, well-controlled as of recent hemoglobin A1c of 6.18 January 2025 Continue CCD HHD SSI if needed Hypothyroidism. TSH markedly elevated secondary to noncompliance Thyroid replacement restarted Chronic anemia Hemoglobin at baseline Trend labs Severe depression with suicidal ideations Consulted psychiatry.Discussed the case with psychiatry. They feel the patient has too many medical complex issues for our unit and are searching for other outside units/ may need rehab. Plan for rehab at this time. CM involved. Recurrent Falls PT OT consults DVT prophylaxis. On apixaban DNR Patient brother - Mr. Jose Corbin, contact #[phone]. Admission and Anticipated Discharge Date Admission Date: April 28, 2025 Subjective Pt seen in follow up, seen w/ 1:1 sitter at the bedside Pt is sitting up in chair today. He is breathing comfortably on RA but reports some chest congestion. Sitter reports some cough (but no cough during my exam), discussed w/ cardiology and obtained CXR Denies any abd.pain, n/v Discussed w/ psychiatry - plan to DC pt to rehab from the hospital Review of Systems Review of Systems: All systems reviewed & are unremarkable except as noted in Subjective Physical Exam Physical Exam: General- adult obese male in NAD He has a chronic ill appearance and flat affect Eyes- PERRL, EOMI, anicteric Neck- supple Lungs-diminished breath sounds, no wheezing Heart- regular rhythm Abdomen- normal bowel sounds, soft, nontender Extremities- no pretibial edema, no calf tenderness Neuro- alert, oriented x 3; PERRL, EOMI; very flat affect Skin- warm & dry Results & Data Results & Data Vital Signs (Past 12 Hours) Vital Signs Temp Pulse Pulse Resp BP Pulse Ox O2 Del Method 04/28/25 10:46 36.5 C 62 16 118/76 98 Room Air 04/28/25 07:01 36.4 C L 68 16 136/89 97 Room Air 04/28/25 05:52 64 04/28/25 02:23 36.8 C 72 16 141/95 H 96 Room Air Laboratory Results 04/28/25 04/28/25 04/28/25 Range/Units 12:59 11:29 07:03 WBC (4.8-10.8) K/ul RBC (4.70-6.10) M/uL Hgb (14.0-18.0) g/dl Hct (42.0-52.0) % MCV (80.0-100.0) fL MCH (25.0-34.0) pg MCHC (32.0-36.0) g/dL RDW Std Deviation (36.4-46.3) fL RDW Coeff of Oziel (11.5-14.5) % Plt Count (130-400) K/uL MPV (9.4-12.4) fL Sodium (136-145) mmol/L Potassium (3.5-5.1) mmol/L Chloride (98-107) mmol/L Carbon Dioxide (21-32) mmol/L Anion Gap (3-11) BUN (6-23) mg/dl Creatinine (0.6-1.4) mg/dl Est Cr Clr Drug Dosing ml/min eGFR BUN/Creatinine Ratio (10-20) Glucose (70-99(Fasting)) mg/dl POC Glucose 117 H 113 H (70-99) mg/dl Calcium (8.6-10.3) mg/dl Phosphorus (2.5-4.9) mg/dl Magnesium (1.7-2.4) mg/dl Procalcitonin Pending 04/28/25 04/27/25 04/27/25 Range/Units 06:32 20:15 16:32 WBC 6.90 (4.8-10.8) K/ul RBC 4.90 (4.70-6.10) M/uL Hgb 12.9 L (14.0-18.0) g/dl Hct 38.5 L (42.0-52.0) % MCV 78.6 L (80.0-100.0) fL MCH 26.3 (25.0-34.0) pg MCHC 33.5 (32.0-36.0) g/dL RDW Std Deviation 38.5 (36.4-46.3) fL RDW Coeff of Oziel 13.5 (11.5-14.5) % Plt Count 221 (130-400) K/uL MPV 10.5 (9.4-12.4) fL Sodium 132 L (136-145) mmol/L Potassium 3.9 (3.5-5.1) mmol/L Chloride 101 (98-107) mmol/L Carbon Dioxide 22 (21-32) mmol/L Anion Gap 9 (3-11) BUN 16 (6-23) mg/dl Creatinine 1.30 (0.6-1.4) mg/dl Est Cr Clr Drug Dosing 69.7 ml/min eGFR 63.68 BUN/Creatinine Ratio 12.3 (10-20) Glucose 121 H (70-99(Fasting)) mg/dl POC Glucose 113 H 145 H (70-99) mg/dl Calcium 8.7 (8.6-10.3) mg/dl Phosphorus 4.1 (2.5-4.9) mg/dl Magnesium 1.9 (1.7-2.4) mg/dl Procalcitonin Medications Administered Current Inpatient Medications Apixaban (Apixaban 5 Mg Tablet) 5 mg PO BID [facility] Stop: 05/26/25 08:59 Last Admin: 04/28/25 08:09 Dose: 5 mg Aripiprazole (A[facility] 2 Mg Tab) [facility] Stop: 05/28/25 08:59 Last Admin: 04/28/25 08:07 Dose: 2 mg Aspirin (Aspirin 81 Mg Ectab) [facility] Stop: 05/25/25 08:59 Last Admin: 04/28/25 08:09 Dose: 81 mg Cefdinir (Cefdinir 300 Mg Cap) 300 mg PO BID [facility] Stop: 05/03/25 13:29 Last Admin: 04/28/25 13:30 Dose: 300 mg Cyanocobalamin (Cyanocobalamin (B-12) 500 Mcg Tablet) 1,000 mcg PO DAILY [facility] Stop: 05/25/25 08:59 Last Admin: 04/28/25 08:10 Dose: 1,000 mcg Dextrose (Dextrose 50% 50 Ml Syringe) 25 - 50 ml IV UD PRN; Protocol PRN Reason: Hypoglycemia Protocol Stop: 05/24/25 22:31 Fluoxetine HCl (Fluoxetine Hcl 20 Mg Cap) [address] [facility] Stop: 05/25/25 08:59 Last Admin: 04/27/25 08:17 Dose: 40 mg Glucagon (Glucagon For Inj 1 Mg Vial) 1 mg SQ UD PRN; Protocol PRN Reason: Hypoglycemia Protocol Stop: 05/24/25 22:31 Glucose (Glucose 40% Gel 15 Gm Tube) 15 - 30 gm PO UD PRN; Protocol PRN Reason: Hypoglycemia Protocol Stop: 05/24/25 22:31 Glucose (Glucose 10 Tab/Tube) 4 - 8 tab PO UD PRN; Protocol PRN Reason: Hypoglycemia Protocol Stop: 05/24/25 22:31 Hydroxyzine HCl (Hydroxyzine Hcl 10 Mg Tab) 10 mg PO QID PRN PRN Reason: Anxiety Stop: 05/24/25 20:56 Promethazine HCl (Phenergan) 6.25 mg in 50.25 mls @ 201 mls/hr IV Q6H PRN PRN Reason: Nausea And Vomiting Stop: 05/24/25 20:55 Insulin Aspart (Insulin Aspart Per Unit Charge) 0 units SC [facility] Stop: 05/25/25 11:29 Last Admin: 04/28/25 12:25 Dose: 1 units Insulin Glargine (Lantus Per Unit Charge) 5 units SQ HS [facility] Stop: 05/25/25 20:59 Last Admin: 04/27/25 20:41 Dose: 5 units Isosorbide Mononitrate (Isosorbide Will Extended Rel 30 Mg Tabcr) 30 mg PO DAILY [facility] Stop: 05/25/25 08:59 Last Admin: 04/28/25 08:08 Dose: 30 mg Lactobacillus Acidophilus (Advanced Probiotic 625 Mg Capsule) 1,250 mg PO DAILY [facility] Stop: 05/25/25 08:59 Last Admin: 04/28/25 08:08 Dose: 1,250 mg Levothyroxine Sodium (Levothyroxine Sodium 175 Mcg Tablet) [facility] Stop: 05/25/25 06:29 Last Admin: 04/28/25 06:44 Dose: 175 mcg Lisinopril (Lisinopril 5 Mg Tab) 5 mg PO QAM [facility] Stop: 05/25/25 08:59 Last Admin: 04/28/25 08:10 Dose: 5 mg Metoprolol Succinate (Metoprolol Succ 25mg Ext Rel Tab) 25 mg PO DAILY [facility] Stop: 05/27/25 08:59 Last Admin: 04/28/25 08:11 Dose: 25 mg Miscellaneous (Carbohydrates For Hypoglycemia ) 15 - 30 gm PO UD PRN PRN Reason: Hypoglycemia Protocol Stop: 05/24/25 22:31 Morphine Sulfate (Morphine Sulfate 4 Mg/Ml 1 Ml Carp\Vial) 4 mg IV Q4H PRN PRN Reason: Pain Stop: 05/08/25 20:55 Oxycodone HCl (Oxycodone Hcl Ir 5 Mg Tab (Immediate Release)) 5 mg PO Q4H PRN PRN Reason: Pain Stop: 05/08/25 20:55 Pantoprazole Sodium (Pantoprazole 40 Mg Tab) 40 mg PO QAM [facility] Stop: 05/25/25 08:59 Last Admin: 04/28/25 08:07 Dose: 40 mg Rosuvastatin Calcium (Rosuvastatin Calcium 10 Mg Tab) 10 mg PO QAM [facility] Stop: 05/25/25 08:59 Last Admin: 04/28/25 08:09 Dose: 10 mg Sertraline HCl (Sertraline Hcl 50 Mg Tablet) [facility] Stop: 05/28/25 08:59 Last Admin: 04/28/25 08:07 Dose: 50 mg Tamsulosin HCl (Tamsulosin Hcl 0.4 Mg Cap) 0.4 mg PO DAILY [facility] Stop: 05/25/25 08:59 Last Admin: 04/28/25 08:08 Dose: 0.4 mg (1) Chest pain Chest pain type: unspecified Qualified Code(s): R07.9 - Chest pain, unspecified
--- NOTE | 2025-04-28 15:23 | Communication Note ---
Date of Service: April 28, [address] Glez and psych liaison. No confusion noted overnight by primary team. Pt denied suicidal intent or plan at this time and has been compliant with treatment. No acts in furtherance of self harm. Psych consult service attempts to identify a med-psych unit for inpatient treatment have not yielded results thus far. Per attending, pt is medically stable with a plan to transfer to rehab for PT. Plan: 1. Discontinue sitter. 2. Recommend a trial of low dose stimulant e.g. Adderall 2.5mg - 5mg po daily for depression. Monitor cardiac function. 3. Pt would benefit from a voluntary psychiatric admission once cleared by PT. 4. Continue Zoloft 50mg daily, Abilify 2mg daily meantime.
[2025-04-29 06:38] LABS: Hematocrit (blood only) 41.3 % (42.0-52.0); Hemoglobin 13.5 g/dl (14.0-18.0); Mean Corpuscular Hemoglobin 25.9 pg (25.0-34.0); Mean Corpuscular Volume 79.1 fL (80.0-100.0); Platelet Count 201 K/uL (130-400); RDW Standard Deviation 38.9 fL (36.4-46.3); Red Blood Count 5.22 M/uL (4.70-6.10); White Blood Count 5.83 K/ul (4.8-10.8)
[2025-04-29 06:53] LABS: Anion Gap 9.0 (3-11); Blood Urea Nitrogen 17.0 mg/dl (6-23); Calcium 9.0 mg/dl (8.6-10.3); Carbon Dioxide 23.0 mmol/L (21-32); Chloride 100.0 mmol/L (98-107); Creatinine Clr Calc Pharmacy 63.2 ml/min; Glucose 105.0 mg/dl (70-99(Fasting)); Magnesium 1.9 mg/dl (1.7-2.4); Potassium 4.1 mmol/L (3.5-5.1); Sodium 132.0 mmol/L (136-145)
[2025-04-29 07:33] VITALS: PULSE 69; RESP 14; TEMP 98.4; O2SAT 94
--- NOTE | 2025-04-29 09:03 | Discharge Summary ---
Date of Service April 29, 2025 Admission HPI Per Admitting Provider History obtained from patient, family, and records. Medical history significant for chronic systolic heart failure EF (40 to 45%, TTE 2024), mild MR, hypertension, hyperlipidemia, CHARLEEN CPAP intolerance, CVA, DM2 insulin requiring, hypothyroidism, chronic anemia (baseline hemoglobin of 13), anxiety/mood disorder, medication noncompliance. Last confinement December 2024 for recurrent falls and laboratory dysfunction nina ent discharged to [facility] facility where he stayed for a week before going home. Patient also seen by psychiatry during confinement for depression/suicidality. No indication for inpatient psychiatry at time of admission. Outpatient specialists follow-up recommended following discharge from rehab. Patient stopped taking home medications shortly after discharge from rehab. Worsening depression and recurrent suicidal thoughts attributed to demise. Patient with increasing weakness over the last few days. Feeling weak and off balance. 2 days ago patient experienced achy substernal pain with some SOB. No cough symptoms. No fluid retention. Patient has actually lost weight as per her account. Patient brought to ER for evaluation. Chest pain relieved by nitroglycerin. Medical History as above Surgical History : Strabismus surgery, dental surgery Family History : Asthma, DM, CHARLEEN Personal/Social history : Non-smoker, occasional EtOH intake, currently unemployed Admission Exam Per Admitting Provider GENERAL: Comfortable, obese, no respiratory distress SKIN: Normal color, warm HEENT: Alopecia, [place] palpebral conjunctivae, no ptosis, dry buccal mucosa NECK : Supple, no tenderness CHEST : Decreased breath sounds, no tenderness HEART : RRR, no obvious murmurs ABDOMEN: Some distention, nontender EXTREMITIES : Minimal LE swelling, no LE tenderness, no other conspicuous deformities noted NEUROLOGIC : Coherent, no facial asymmetry, gait and stance not assessed Principal Diagnosis Chest pain, CAD, HFrEF, + LV thrombus Depression, suicidal ideation, medication nonadherence Discharge Exam General- adult obese male in NAD He has a chronic ill appearance and flat affect Eyes- PERRL, EOMI, anicteric Neck- supple Lungs-diminished breath sounds, no wheezing Heart- regular rhythm Abdomen- normal bowel sounds, soft, nontender Extremities- no pretibial edema, no calf tenderness Neuro- alert, oriented x 3; PERRL, EOMI; very flat affect Skin- warm & dry Discharge Data Allergies Allergy/AdvReac Type Severity Reaction Status Date / Time Penicillins Allergy Severe 1968--ANAPH Verified 04/24/25 17:50 YLAXIS doxycycline Allergy Intermediate HIVES Verified 04/24/25 17:50 Macrolide Antibiotics Allergy Unknown UNKNOWN Verified 04/24/25 17:50 morphine AdvReac Intermediate GI UPSET Verified 04/24/25 17:50 Consultations 04/24/25 19:03 ED Decision to Admit Stat 04/24/25 20:52 Consult Psychiatry Routine 04/24/25 21:09 Consult Cardiology Routine Ordered Studies 04/24/25 16:38 CT head/brain wo con Stat FINDINGS: Motion artifact degrades image quality. Mild parenchymal volume loss noted. Moderate to advanced periventricular lucency, likely representing small vessel occlusive disease. Loss of rouse-white differentiation present in the right frontal lobe, unchanged. Rouse-white differentiation is preserved. No edema or midline shift. No intra-axial or extra-axial hemorrhage. Ventricles are normal in size and configuration. Brainstem and cerebellum have a normal appearance. Calvarium unremarkable. Mild right maxillary sinus mucosal thickening, unchanged. Mastoid air cells are well-pneumatized. Globes are intact. No retrobulbar abnormality. IMPRESSION: 1. No CT evidence of an acute intracranial abnormality. If clinical concern warrants, brain MRI could be considered. Hospital Course (1) Chest pain: In summary, 60-year-old male with a history of multivessel coronary artery disease, stroke, major recurrent depression, chronic systolic heart failure, hypertension, hyperlipidemia and obstructive sleep apnea admitted with chest pain. Chest pain Relieved by nitroglycerin in ED. Cardiology consult appreciated. S/P cardiac cath in 2023 on 03/09/24 demonstrating severe multivessel CAD demonstrating severe multivessel coronary artery disease that was felt to have poor surgical targets. Echo revealed LVEF 40-45% with large apical, inferior, and posterior wall motion abnormality. He was started on appropriate medical therapies upon that discharge, however per outpatient notes patient repeatedly stopped all medications. ACS ruled out Echocardiogram done here shows a large apical thrombus Chronic systolic heart failure EF (40 to 45%, TTE 2024). He appears to be euvolemic at present Given one dose of IV lasix on admission Pt is noncompliant with meds Restarted ASA, statin, metoprolol succinate, rafael nopril, isosorbide. Watch I&O Current Echo shows a large apical thrombus and further decrease in left ventricular ejection fraction of 20- 25% with diffuse hypokinesis. Patient was transitioned from IV heparin to apixaban HTN Follow BPs BPs on lower side and bradycardia down into the 30s and 40s -> metoprolol dose decreased to 25 mg daily. HLD restart statin--->Crestor CHARLEEN with CPAP intolerance Atelectasis vs. early pna CXR w/ poss. atelectasis vs. early pna. procal negat. started on cefdinir cont. with incentive spirometry, flutter valve Pt currently on RA Prior CVA left hemiparesis Follows with Neuro Had recent MRI DM2 insulin requiring, well-controlled as of recent hemoglobin A1c of 6.18 January 2025 Continue CCD HHD SSI if needed Hypothyroidism. TSH markedly elevated secondary to noncompliance Thyroid replacement restarted Chronic anemia Hemoglobin at baseline Trend labs Severe depression with suicidal ideations Consulted psychiatry. They feel the patient has too many medical complex issues for our unit and are searching for other outside units/ may need rehab. Plan for rehab at this time. CM involved. Pt now on abilify 2 mg daily abd sertraline 50 mg daily Recurrent Falls PT OT consults Patient brother - Mr. Jose Corbin, contact #[phone]. Total Time Total Time Spent Total Time Spent (In Minutes): 40 Discharge Plan Discharge Items Patient Disposition: Transfer Acute Care Hospital Reason For Visit: CP Discharge Diagnosis: Chest pain, CAD, HFrEF, + LV thrombus Depression, suicidal ideation, medication nonadherence Condition on Discharge: Fair Activity: Per Instructions section Non-emergency contact: Primary Care Provider, Specialist, Counseling Services Director and Psychiatrist Call non-emergency contact if: you have any medication questions and your symptoms worsen Follow-up/Referrals: Jennifer Jimenez, DO [Primary Care Provider] - Diet: Carb Consistent or DM2 and Heart Healthy Addtl Attending Provider Instructions: Follow up with your primary care physician, aircraft painter, psychiatrist. You may need to be admitted to inpatient psychiatric unit after your rehab stay. Take medications as prescribed. Pending Studies at Discharge: No Stand-Alone Forms: My [facility] Skilled Items Patient informed of condition?: Yes DNR: Yes Discharge Level of Care: Acute rehab Communicable Disease: No Discharge Prognosis: Other Lines: None Urinary Catheter: No Medications and DC Order Prescriptions: New cefdinir 300 mg Capsule 300 mg PO BID 6 Days Qty: 12 0RF Eliquis 5 mg Tablet 5 mg PO BID Qty: 60 0RF metoprolol succinate 25 mg Tablet Extended Release 24 Hr 25 mg PO DAILY Qty: 30 0RF lisinopril 5 mg Tablet 5 mg PO QAM Qty: 30 0RF rosuvastatin 10 mg Tablet 10 mg PO QAM Qty: 30 0RF aripiprazole 2 mg Tablet 2 mg PO QAM Qty: 30 0RF aspirin 81 mg Tablet,Delayed Release (Dr/Ec) 81 mg PO QAM Qty: 30 0RF sertraline 50 mg Tablet 50 mg PO QAM Qty: 30 0RF Advanced Probiotic 625 mg (10 billion cell) Capsule 1 cap PO DAILY Qty: 7 0RF pantoprazole 40 mg Tablet,Delayed Release (Dr/Ec) 40 mg PO QAM Qty: 30 0RF cyanocobalamin (vitamin B-12) 500 mcg Tablet 1,000 mcg PO DAILY Qty: 30 0RF insulin glargine [Lantus U-100 Insulin] 100 unit/mL Solution 5 unit subcut HS Qty: 10 0RF Continued aspirin 81 mg tablet,delayed release (DR/EC) 81 mg PO QAM acetaminophen [Tylenol Extended Release] 650 mg Tablet Extended Release 650 mg PO Q8H PRN (Reason: Pain) tamsulosin [Flomax] 0.4 mg Capsule 0.4 mg PO DAILY Probiotic 10 billion cell Capsule 10,000 mmu cells PO DAILY cyanocobalamin (vitamin B-12) [Vitamin B-12] 1,000 mcg Tablet 1,000 mcg PO DAILY nitroglycerin [Nitrostat] 0.4 mg Tablet, Sublingual 0.4 mg sublingual DIRECTED PRN (Reason: Chest Pain) pantoprazole 40 mg Tablet,Delayed Release (Dr/Ec) 40 mg PO QAM Qty: 30 0RF rosuvastatin 10 mg Tablet 10 mg PO QAM Qty: 30 0RF isosorbide mononitrate 30 mg Tablet Extended Release 24 Hr 30 mg PO DAILY Qty: 30 0RF metformin 500 mg Tablet Extended Release 24 Hr 500 mg PO DIRECTED Qty: 30 0RF Rx Instructions: 500 MG QAM X 2 WEEKS, THEN INCREASE TO 1,000 MG QAM. levothyroxine 175 mcg Tablet 175 mcg PO DAILYBB Qty: 30 0RF lisinopril 5 mg Tablet 5 mg PO QAM Qty: 30 0RF Held triamcinolone acetonide 0.1 % Cream 1 applic TOPICAL BID PRN (Reason: SKIN IRRITATIONS) Hold Instructions: Resume on 05/02/25. discuss w/ primary care doctor if/when to resume clobetasol 0.05 % Ointment 1 applic TOPICAL BID PRN (Reason: APPLY TO FEET DIRECTED) Hold Instructions: Resume on 05/02/25. discuss w/ primary care doctor if/when to resume nystatin 100,000 unit/gram Powder 1 applic TOPICAL TID PRN (Reason: APPLY TO SCROTUM NEEDED) Hold Instructions: Resume on 05/02/25. discuss w/ primary care doctor if/when to resume clotrimazole 1 % Cream 1 applic TOPICAL TID PRN (Reason: AFFECTED AREAS) Hold Instructions: Resume on 05/02/25. discuss w/ primary care doctor if/when to resume insulin glargine [Lantus Solostar U-100 Insulin] 100 unit/mL (3 mL) Insulin Pen 40 unit SUBCUT HS Hold Instructions: Resume on 05/02/25. discuss new dose with primary care physician before resuming Rx Instructions: PER MED LIST 20 UNITS QAM. Discontinued fluoxetine 40 mg Capsule 40 mg PO QAM metoprolol succinate 50 mg Tablet Extended Release 24 Hr 50 mg PO DAILY meloxicam 7.5 mg Tablet 7.5 mg PO QAM sertraline 50 mg Tablet 150 mg PO QAM aripiprazole [Abilify] 5 mg Tablet 5 mg PO QAM Qty: 30 0RF Discharge Orders: Discharge Order (Routine); Ordered 04/29/25 Ordered By: Corby Glez Admission Data Admit Date/Time: 04/28/25 07:24 Attending Provider: Corby Glez Admit Provider: Danis Terrazas Primary Care Provider: Jennifer Jimenez Other Providers: Igor Jasmine; Ana Laura Mensah; Jone Rueda; Rachel Mireles; Seema Peralta; Igor Murphy; Tank Gamez; Steven Archuleta; Johana Jackson; Buck Parker; Antoine Hurd; Markell Mae; Ten Broderick; Efren Chan; Romelia Walters; Bing Oconnor; Beronica Moncada; Vandana House; Johana Corral; Jeffrey Lorenzo; Alfie Logan; Parul Kaba; Annalisa Christensen; Jolene Dhillon; Gilbert Singh; Asher Jason; Kia Gonsales; Heavenly Rizvi; Martinez Kern; [facility]; [place]; Danis Terrazas
[2025-04-29 09:11] VITALS: BP 118/76
--- NOTE | 2025-04-29 10:40 | Cardiology Progress Note ---
Date of Service April 29, 2025 Assessment & Plan (1) CAD (coronary artery disease): (2) Nonadherence to medication: (3) Hypertension: (4) Heart failure with reduced ejection fraction (HFrEF): (5) Weakness: (6) Ischemic cardiomyopathy: (7) LV (left ventricular) mural thrombus: Plan 04/25/25 Patient is a complex 60 year old male admitted with weakness, ambulatory dysfunction, chest pain/pressure with history of coronary artery disease per cath in February 2024. At that time, he was found to have multivessel CAD and surgical revascularization was recommended. However he had poor surgical targets and med management recommended. Patient has a long history of depression/suicidal ideation and non compliance with medications. Apparently he stopped all of his oral medications several months ago. Since that time, patient reported intermittent chest pain/pressure, occurring at rest or with walking. Since admission, he has had HS troponin negative x3. EKG demonstrating sinus with 1st degree AV block and T wave inversion in lateral leads, stable from prior EKG's. Echo ordered and pending. Recommend continuing medical management for ongoing coronary artery disease. Resume ASA 81 mg daily, metoprolol succinate 50 mg daily, rosuvastatin, isosorbide 30 mg daily, and lisinopril. these were prior home medications. He was treated yesterday with one dose IV lasix 40 mg with good urine output. Appears euvolemic currently Consider low dose loop diuretic and/or spironolactone as well. Could titrate isosorbide if needed pending anginal complaints. Recommend psych evaluation for suicidal ideations. He has been following with neurology for ongoing weakness and ambulatory dysfunction. This was thought to be related to his DDD/spinal stenosis. At this time, would not recommend further invasive cardiac testing. Will monitor patient as he is resumed on his oral medications. 04/26/25 Patient diagnosed with LV apical thrombus yesterday on echo Also diagnosed with worsening of his LV systolic function, now severely reduced at 20-25%, consistent with ischemic cardiomyopathy and left to right interatrial shunt. Prior cath in 2023 with severe multivessel disease with poor surgical targets for intervention or bypass surgery. Med management had been recommended. Unfortunately patient stopped all medications approx 3 months ago. Recommendations: Transition from IV heparin to anticoagulation for LV thrombus. Started on Eliquis 5 mg BID. Case management to check on cost/affordability. GDMT resumed during this admission - Continue ASA, statin, metoprolol succinate, lisinopril, isosorbide. BP is borderline low, so he is likely at max tolerated doses of these medications. Can consider transitioning to Entreo as an outpatient (if affordable) and if patient is compliant with follow up. If tolerated, could consider initiation of spironolactone. Mild renal insufficiency noted today with creatinine of 1.4. Will not start today. Psych consulted for suicidal ideations. Currently 1:1 sitter. Plans to possibly transfer to psych unit once medically stable. Anticipate can be transferred within 24 hours 04/27/25 Patient is tolerating GDMT including ASA, statin, metoprolol succinate, lisinopril, isosorbide. He appears euvolemic. consider future spironolactone/Jardiance. Mild renal insufficiency and hyponatremia noted, so will not initiate at this time. BP and HR stable. No arrhythmias on telemetry. Started on Eliquis for LV thrombus. Conservative medical management recommended at this time for severe ischemic cardiomyopathy. Prior cath last year with poor surgical or interventional targets. At this time, ongoing psych treatment recommended for suicidal ideations. would be acceptable to transfer to psych unit for ongoing therapy. PT/OT also recommended. Will arrange cardiology f/u in a few weeks and continue to titrate GDMT as tolerated. 04/28/25: Metoprolol reduced yesterday to 25 mg daily due to concerns regarding dizziness/confusion/fatigue. BP/HR remains well controlled. No arrhythmias on telemetry. Continue low dose lisinopril 5 mg daily. [facility]. Appears euvolemic. Consider future spironolactone and Jardiance as well if tolerated. Continue Eliquis for LV thrombus. Conservative therapies recommended for ischemic cardiomyopathy. Prior cath demonstrating severe multivessel disease with poor surgical targets. 04/29/25 There was concerns regarding worsening cough/SOB yesterday. Chest xray demonstrating atelectasis vs early pneumonia. Started on antibiotics by hospitalist. Cough/SOB improved this morning per patient. Otherwise stable cardiovascular issues. Continue GDMT including ASA, statin, metoprolol succinate, lisinopril, is osorbide. conservative medical therapies recommended for ischemic cardiomyopathy. Prior cath in 2023 revealing severe multivessel disease with poor surgical targets. PT/OT recommended. Patient accepted at rehab and to be transferred today. Case discussed with Dr. Mae I spent a total of 30 minutes on the date of service in preparation, delivery, and documentation of the care provided to this patient, excluding any time spent in the performance of separately billed services. Bing Oconnor PA-C Department of Cardiology, [facility] This chart was completed in part utilizing Speech Voice Recognition Software. Grammatical errors, random word insertions, pronoun errors, and incomplete sentences are an occasional consequence of this system due to software limitations, ambient noise, and hardware issues. Any formal questions or concerns about the content, text, or information contained within the body of this dictation should be directly addressed to the provider for clarification. Admission and Anticipated Discharge Date Admission Date: April 28, 2025 Supervising Physician Co-Signing Physician Notes Patient discharged prior to evaluation by the undersigned. I have reviewed the advance practitioner's documentation, and I agree with, and take responsibility for the plan of care. Markell Mae DO, [facility] Subjective Patient resting in bed. Denies chest pain, SOB. reports cough improved from yesterday. No orthopnea, PND or increased edema Review of Systems Review of Systems: All systems reviewed & are unremarkable except as noted in HPI & below Physical Exam Constitutional: WD/WN, vitals as above + obese; no acute distress Neck: + thick neck Respiratory: no labored breathing and no cough Cardiovascular: Rate/Rhythm: regular rate and regular rhythm Heart Sounds: no murmur (distant heart sounds) Extremities: no edema Gastrointestinal (Abdomen): Inspection/Auscultation: abdomen normal to inspection Percussion/Palpation: abdomen soft; abdomen nontender Neurologic: PERRL, EOMI, accommodation nl, no face palsy, no dysarthria Psychiatric: Orientation: alert and oriented x 3 Mood: + depressed mood Results & Data Vital Signs (Past 12 Hours) Vital Signs Temp Pulse Pulse Resp BP BP Pulse Ox 04/29/25 09:11 36.9 C 69 14 129/89 118/76 94 04/29/25 09:06 36.9 C 69 14 129/89 118/76 94 04/29/25 07:32 36.9 C 69 14 129/89 94 04/29/25 06:08 66 04/29/25 02:57 36.5 C 70 18 122/82 98 07/17/25 23:31 64 04/28/25 23:21 36.4 C L 66 16 107/69 98 O2 Del Method 04/29/25 09:11 04/29/25 09:06 04/29/25 07:32 Room Air 04/29/25 06:08 04/29/25 02:57 Room Air 04/28/25 23:31 04/28/25 23:21 Room Air Laboratory Results CBC 04/29/25 Range/Units 06:15 WBC 5.83 (4.8-10.8) K/ul RBC 5.22 (4.70-6.10) M/uL Hgb 13.5 L (14.0-18.0) g/dl Hct 41.3 L (42.0-52.0) % Plt Count 201 (130-400) K/uL Comprehensive Metabolic Panel 04/29/25 Range/Units 06:15 Sodium 132 L (136-145) mmol/L Potassium 4.1 (3.5-5.1) mmol/L Chloride 100 (98-107) mmol/L Carbon Dioxide 23 (21-32) mmol/L BUN 17 (6-23) mg/dl Creatinine 1.43 H (0.6-1.4) mg/dl Glucose 105 H (70-99(Fasting)) mg/dl Calcium 9.0 (8.6-10.3) mg/dl Intake and Output 04/28/25 04/29/25 04/29/25 22:59 06:59 14:59 Output Total 600 / 850 Balance -600 / -630 Output: Urine 600 / 850 Other: Other Intake Source SIPS # Unmeasured Voids 1 Weight 102.6 kg 102.6 kg Weight Measurement Method Built in [facility] Patient Weight 04/30/25 06:59 Weight 102.6 kg Diagnostic Findings Telemetry reviewed: NSR in the 60-70's. No arrhythmias. Rare PVC's Chest xray report reviewed dated 04/28/25: IMPRESSION: Atelectasis versus early pneumonia left lung base. Medications Administered Current Inpatient Medications Apixaban (Apixaban 5 Mg Tablet) 5 mg PO BID [facility] Stop: 05/26/25 08:59 Last Admin: 04/29/25 08:34 Dose: 5 mg Aripiprazole (Aripiprazole 2 Mg Tab) 2 mg PO QAM [facility] Stop: 05/28/25 08:59 Last Admin: 04/29/25 08:35 Dose: 2 mg Aspirin (Aspirin 81 Mg Ectab) 81 mg PO QAM [facility] Stop: 05/25/25 08:59 Last Admin: 04/29/25 08:34 Dose: 81 mg Cefdinir (Cefdinir 300 Mg Cap) 300 mg PO BID [facility] Stop: 05/03/25 13:29 Last Admin: 04/29/25 08:33 Dose: 300 mg Cyanocobalamin (Cyanocobalamin (B-12) 500 Mcg Tablet) 1,000 mcg PO DAILY [facility] Stop: 05/25/25 08:59 Last Admin: 04/29/25 08:34 Dose: 1,000 mcg Dextrose (Dextrose 50% 50 Ml Syringe) 25 - 50 ml IV UD PRN; Protocol PRN Reason: Hypoglycemia Protocol Stop: 05/24/25 22:31 Fluoxetine HCl (Fluoxetine Hcl 20 Mg Cap) 40 mg PO [facility] Stop: 05/25/25 08:59 Last Admin: 04/27/25 08:17 Dose: 40 mg Glucagon (Glucagon For Inj 1 Mg Vial) 1 mg SQ UD PRN; Protocol PRN Reason: Hypoglycemia Protocol Stop: 05/24/25 22:31 Glucose (Glucose 40% Gel 15 Gm Tube) 15 - 30 gm PO UD PRN; Protocol PRN Reason: Hypoglycemia Protocol Stop: 05/24/25 22:31 Glucose (Glucose 10 Tab/Tube) 4 - 8 tab PO UD PRN; Protocol PRN Reason: Hypoglycemia Protocol Stop: 05/24/25 22:31 Hydroxyzine HCl (Hydroxyzine Hcl 10 Mg Tab) 10 mg PO QID PRN PRN Reason: Anxiety Stop: 05/24/25 20:56 Promethazine HCl (Phenergan) 6.25 mg in 50.25 mls @ 201 mls/hr IV Q6H PRN PRN Reason: Nausea And Vomiting Stop: 05/24/25 20:55 Insulin Aspart (Insulin Aspart Per Unit Charge) 0 units SC ACHS [facility] Stop: 05/25/25 11:29 Last Admin: 04/29/25 08:35 Dose: Not Given Insulin Glargine (Lantus Per Unit Charge) 5 units SQ HS [facility] Stop: 05/25/25 20:59 Last Admin: 04/28/25 20:10 Dose: 5 units Isosorbide Mononitrate (Isosorbide [place] Extended Rel 30 Mg Tabcr) 30 mg PO DAILY [facility] Stop: 05/25/25 08:59 Last Admin: 04/29/25 08:34 Dose: 30 mg Lactobacillus Acidophilus (Advanced Probiotic 625 Mg Capsule) 1,250 mg PO DAILY [facility] Stop: 05/25/25 08:59 Last Admin: 04/29/25 08:33 Dose: 1,250 mg Levothyroxine Sodium (Levothyroxine Sodium 175 Mcg Tablet) 175 mcg PO DAILYBB [facility] Stop: 05/25/25 06:29 Last Admin: 04/29/25 05:59 Dose: 175 mcg Lisinopril (Lisinopril 5 Mg Tab) 5 mg PO QAM [facility] Stop: 05/25/25 08:59 Last Admin: 04/29/25 08:36 Dose: 5 mg Metoprolol Succinate (Metoprolol Succ 25mg Ext Rel Tab) 25 mg PO DAILY [facility] Stop: 05/27/25 08:59 Last Admin: 04/29/25 08:36 Dose: 25 mg Miscellaneous (Carbohydrates For Hypoglycemia ) 15 - 30 gm PO UD PRN PRN Reason: Hypoglycemia Protocol Stop: 05/24/25 22:31 Morphine Sulfate (Morphine Sulfate 4 Mg/Ml 1 Ml Carp\Vial) 4 mg IV Q4H PRN PRN Reason: Pain Stop: 05/08/25 20:55 Oxycodone HCl (Oxycodone Hcl Ir 5 Mg Tab (Immediate Release)) 5 mg PO Q4H PRN PRN Reason: Pain Stop: 05/08/25 20:55 Pantoprazole Sodium (Pantoprazole 40 Mg Tab) 40 mg PO QAM [facility] Stop: 05/25/25 08:59 Last Admin: 04/29/25 08:34 Dose: 40 mg Rosuvastatin Calcium (Rosuvastatin Calcium 10 Mg Tab) 10 mg PO QAM [facility] Stop: 05/25/25 08:59 Last Admin: 04/29/25 08:34 Dose: 10 mg Sertraline HCl (Sertraline Hcl 50 Mg Tablet) 50 mg PO QAM [facility] Stop: 05/28/25 08:59 Last Admin: 04/29/25 08:34 Dose: 50 mg Tamsulosin HCl (Tamsulosin Hcl 0.4 Mg Cap) 0.4 mg PO DAILY [facility] Stop: 05/25/25 08:59 Last Admin: 04/29/25 08:35 Dose: 0.4 mg PG Care Time/CCT Total # of Minutes Spent Total Time Spent with Patient: Total time spent is greater than 50% in coordination of care (as documented) at patient's floor/unit and/or counseling patient: 30 Coding Level of Care Code 47642 SUB INP/OBS CARE 3/50MIN Diagnoses Coronary artery disease of [place] artery of [place] heart with stable angina pectoris I25.118 Associated angina: with stable angina Coronary Disease-Associated Artery/Lesion type: [place] artery [place] vs. transplanted heart: [place] heart Nonadherence to medication Z91.148 Hypertension I10 Hypertension type: unspecified Heart failure with reduced ejection fraction (HFrEF) I50.20 Weakness R53.1 Ischemic cardiomyopathy I25.5 LV (left ventricular) mural thrombus I51.3 (1) CAD (coronary artery disease) Associated angina: with stable angina Coronary Disease-Associated Artery/Lesion type: [place] artery [place] vs. transplanted heart: [place] heart Qualified Code(s): I25.118 - Atherosclerotic heart disease of [place] coronary artery with other forms of angina pectoris (3) Hypertension Hypertension type: unspecified Qualified Code(s): I10 - Essential (primary) hypertension
== END 2025-04-29 12:33 | DRG 303 ==
LOC: ED 16:22 → 2E 16:22 → SUATTDRO 20:39 → 2E 22:00 → SUATTDRO 04-28 07:24

== ENCOUNTER 2025-06-16 16:16 | Inpatient (IN) ==
[2025-06-16 17:33] LABS: Hematocrit (blood only) 41.1 % (42.0-52.0); Hemoglobin 13.4 g/dl (14.0-18.0); Mean Corpuscular Hemoglobin 24.6 pg (25.0-34.0); Mean Corpuscular Volume 75.6 fL (80.0-100.0); Platelet Count 190 K/uL (130-400); RDW Standard Deviation 41.3 fL (36.4-46.3); Red Blood Count 5.44 M/uL (4.70-6.10); White Blood Count 18.58 K/ul (4.8-10.8)
[2025-06-16 17:47] LABS: Chlamydia pneumoniae PCR Not Detected (NotDetected); Coronavirus 229E PCR Not Detected (NotDetected); Coronavirus CoV-2 (COVID19)PCR Not Detected (NotDetected); Coronavirus HKU1 PCR Not Detected (NotDetected); Coronavirus NL63 PCR Not Detected (NotDetected); Coronavirus OC43PCR Not Detected (NotDetected); Human Metapneumovirus PCR Not Detected (NotDetected); Parainfluenza Virus 1 PCR Not Detected (NotDetected); Parainfluenza Virus 2 PCR Not Detected (NotDetected); Parainfluenza Virus 3 PCR Not Detected (NotDetected); Parainfluenza Virus 4 PCR Not Detected (NotDetected); Respiratory Syncytial VirusPCR Not Detected (NotDetected); Rhinovirus/Enterovirus PCR Not Detected (NotDetected)
[2025-06-16 17:51] LABS: Alanine Aminotransferase 8 U/L (7-52); Albumin Globulin Ratio 0.9 (0.9-2); Alkaline Phosphatase 88 U/L (34-104); Anion Gap 13 (3-11); Bilirubin,Total 2.4 mg/dl (0.2-1.0); Blood Urea Nitrogen 15 mg/dl (6-23); Calcium 9.0 mg/dl (8.6-10.3); Carbon Dioxide 19 mmol/L (21-32); Chloride 93 mmol/L (98-107); Globulin 3.8 gm/dl (2.5-4.0); Glucose 295 mg/dl (70-99(Fasting)); Magnesium 1.7 mg/dl (1.7-2.4); Potassium 4.4 mmol/L (3.5-5.1); Sodium 125 mmol/L (136-145); Total Protein 7.1 gm/dl (6.0-8.3)
[2025-06-16 17:53] LABS: Immature Granulocytes # (auto) 0.13 K/uL (0.01-0.20); Immature Granulocytes % (auto) 0.7 %
[2025-06-16 18:01] LABS: INR 1.4 (0.9-1.1); Prothrombin Time 14.5 Seconds (9.0-12.0)
--- NOTE | 2025-06-16 18:07 | XRay Report ---
Chest radiograph, one view History: Dyspnea Comparison: None Findings: Single AP view of the chest performed. No focal consolidation or pleural effusion. No pneumothorax. The cardiomediastinal silhouette is within normal limits. Normal pulmonary vascularity. No evidence for lymphadenopathy. No visualized bony or soft tissue abnormality. Impression: Normal chest radiograph Electronically signed by Martinez Dugan 06-16-2025 6:06 PM
--- NOTE | 2025-06-16 18:10 | Emergency Department Note ---
Impression & Plan Acute dyspnea, Nausea & vomiting, Splenic infarction, Pulmonary embolism, bilateral ED Provider Note HISTORY OF PRESENT ILLNESS: Patient is a 60-year-old male presenting with shortness of breath and vomiting. Patient reports that he "cannot breathe" and this has been ongoing for weeks. Reports that he came today because he has been vomiting for the last 24 hours. He reports that "anytime I eat greasy food I vomit." He denies any abdominal pain. He denies any chest pain. He reportedly was very weak today and his legs gave out and he fell and landed on his knees. He is not on any anticoagulation or antiplatelet therapies. He is not on any diuretic medications. He denies any DVT or PE history. Denies any history of cardiac stents. He states he has been coughing up a white-colored phlegm for the last few days. Denies any recent sick contact exposures. Denies any fevers. Denies any history of abdominal surgeries. Patient reportedly has not been compliant with his home medications secondary to him feeling so ill. ROS: as above PHYSICAL EXAM: Constitutional: Patient appears in no acute distress. Ill-appearing HENT: Head: Normocephalic and atraumatic. Eyes: EOMI, PERRL Mouth/Throat: Mucous membranes moist. Neck: Trachea midline. Neck supple. Cardiovascular: RRR, No murmurs, rubs or gallops. Intact distal pulses. Pulmonary/Chest: No respiratory distress. Breath sounds clear and equal bilaterally. No wheezes or rales Abdominal: Abdomen soft, no tenderness, rebound or guarding. Musculoskeletal: No edema, tenderness or deformity noted. Skin: Warm and dry. No rash, erythema, pallor or cyanosis Psychiatric: Appropriate mood and affect for situation. Neurological: Alert and keenly responsive. CN II-XII grossly intact, moving all extremities equally and fully. MDM: - Vitals signs showed hypertension and tachycardia - History obtained via patient. History as above. - Chronic conditions affecting care: HLD; hypothyroidism; HTN; CHF; DM-2 - Differential diagnoses include, but are not limited to: Congestive heart failure; acute coronary syndrome; COPD/asthma exacerbation; pulmonary edema; pulmonary embolism; pneumonia; pneumothorax; viral syndrome - Order placed for continuous cardiac monitoring. At this time, monitor showed rate of 90 bpm with normal sinus rhythm, per my interpretation. - External medical records reviewed. Discharge summary dated 04/29/2025 was reviewed. Patient was admitted for chest pain and found to have a left ventricular thrombus. - EKG image interpreted by myself showed normal sinus rhythm. Rate tachycardic at 110 bpm. QT 298. No acute ischemic changes. - Laboratory workup interpreted by myself showed leukocytosis (WBC 18.58); elevated INR (1.4); hyponatremia (Na 125); elevated anion gap (13); elevated lactate (2.7); elevated total bilirubin (2.4); elevated BNP (968); normal troponin; elevated procalcitonin (0.57) - Blood cultures obtained - CXR image reviewed by myself is negative for pneumonia, per my interpretation. - CT abdomen/pelvis with IV contrast showed bilateral pulmonary emboli there is also prominent area of consolidation throughout the lung bases concerning for infarction. Noted to have cardiomegaly and a dilated left ventricular cavity. Also noted to have a wedge-shaped infarction in the superior spleen consistent with a splenic infarction. - Heparin drip started. - Discussion was had with rn case manager about patient's case and need for admission - Hospitalist consulted for admission - [facility]. I have personally spent 38 minutes of critical care time in the direct management of this patient. This includes bedside care, interpretation of diagnostic studies, and testing, discussion with consultants, patient, and family members, and other required patient management activities. This 38 minutes is in excess of all separately billable procedures. ASSESSMENT AND PLAN: Diagnosis: Acute dyspnea; bilateral pulmonary embolism; splenic infarction Plan: admit Past Med/Surg History Problem List (Updated 06/16/25 @ 22:08 by Kassandra Downs MD) Pulmonary embolism, bilateral (Acute) Splenic infarction (Acute) Nausea & vomiting (Acute) Acute dyspnea (Acute) LV (left ventricular) mural thrombus Ischemic cardiomyopathy Heart failure with reduced ejection fraction (HFrEF) CAD (coronary artery disease) Nonadherence to medication (Acute) Weakness (Acute) Hypertension (Acute) CHF (congestive heart failure) (Acute) Hypothyroid (Acute) SOB (shortness of breath) (Acute) Recurrent falls Urinary retention Oliguria Ambulatory dysfunction Knee pain Fall (Acute) Weakness (Acute) COVID-19 virus infection Dyspnea on minimal exertion (Acute) CHF (congestive heart failure) (Acute) COVID-19 (Acute) Acute hypoxemic respiratory failure Non-ST elevation IN (NSTEMI) (Acute) Phlegmonous cellulitis Hyponatremia (Acute) History of CVA (cerebrovascular accident) Morbid obesity DM2 (diabetes mellitus, type 2) Cellulitis (Acute) Depression HTN (hypertension) CHF (congestive heart failure) Morbid obesity with BMI of 50.0-59.9, adult Pancreatitis Cholangitis concurrent with and due to calculus of gallbladder Hyperlipidemia, unspecified Hypothyroidism, unspecified Obstructive sleep apnea (adult) (pediatric) Unspecified cerebral artery occlusion with cerebral infarction Medical History Bilateral knee pain Hypertension Diabetes Social History Smoking Status: Never smoker Hx Alcohol Use: No Hx Substance Use: No Preferred Language: Wolof Communication Ability: Effective Veneer Gluer Required: No Beliefs That Will Affect Care: None Current Living Situation: Alone Current Living Situation Comment: home alone Feels Safe at Home: Yes Gender Identity: Male Assistive Devices: Cane and Walker Allergies Allergies Allergy/AdvReac Type Severity Reaction Status Date / Time Penicillins Allergy Severe 1969--ANAPH Verified 04/24/25 17:50 YLAXIS doxycycline Allergy Intermediate HIVES Verified 04/24/25 17:50 Macrolide Antibiotics Allergy Unknown UNKNOWN Verified 04/24/25 17:50 morphine AdvReac Intermediate GI UPSET Verified 04/24/25 17:50 Home Meds Home Medications Medication Instructions Recorded Confirmed nitroglycerin 0.4 mg sublingual 0.4 mg sublingual DIRECTED PRN 01/05/25 06/16/25 tablet (Nitrostat) Chest Pain acetaminophen 650 mg 650 mg PO Q8H PRN Pain 04/24/25 06/16/25 tablet,extended release aspirin 81 mg tablet,delayed 81 mg PO QAM 04/24/25 06/16/25 release clotrimazole 1 % topical cream 1 applic topical TID PRN AFFECTED 04/24/25 06/16/25 AREAS insulin glargine 100 unit/mL (3 40 unit subcut HS 04/24/25 06/16/25 mL) subcutaneous pen (Lantus Solostar U-100 Insulin) nystatin 100,000 unit/gram topical 1 applic topical TID PRN APPLY TO 04/24/25 06/16/25 powder SCROTUM NEEDED tamsulosin 0.4 mg capsule (Flomax) 0.4 mg PO DAILY 04/24/25 06/16/25 Previous Rx's Medication Instructions Recorded L.acidop,casei,lactis,rham-B.lact,odessa 1 cap PO DAILY #7 caps 04/29/25 625 mg (10 billion cell) capsule (Advanced Probiotic) apixaban 5 mg tablet (Eliquis) 5 mg PO BID #60 tabs 04/29/25 aripiprazole 2 mg tablet 2 mg PO QAM #30 tabs 04/29/25 cyanocobalamin (vitamin B-12) 500 1,000 mcg (2 x 500 mcg) PO DAILY 04/29/25 mcg tablet #30 tabs isosorbide mononitrate 30 mg 30 mg PO DAILY #30 tabs 04/29/25 tablet,extended release 24 hr levothyroxine 175 mcg tablet 175 mcg PO DAILYBB #30 tabs 04/29/25 lisinopril 5 mg tablet 5 mg PO QAM #30 tabs 04/29/25 metformin 500 mg tablet,extended 500 mg PO DIRECTED #30 tabs 04/29/25 release 24 hr metoprolol succinate 25 mg 25 mg PO DAILY #30 tabs 04/29/25 tablet,extended release 24 hr pantoprazole 40 mg tablet,delayed 40 mg PO QAM #30 tabs 04/29/25 release rosuvastatin 10 mg tablet 10 mg PO QAM #30 tabs 04/29/25 sertraline 50 mg tablet 50 mg PO QAM #30 tabs 04/29/25 Results & Data (ED) Vital Signs Vital Signs - 24 hr 06/16/25 16:26 06/16/25 16:42 06/16/25 16:42 Pulse Rate Pulse Rate [Finger] 107 H Pulse Rate from SpO2 Sensor Pulse Rhythm [Finger] Regular Pulse Strength [Finger] Normal Respiratory Rate 24 Respiratory Effort / Characteristics Non-Labored Spontaneous Respiratory Depth Normal Blood Pressure Blood Pressure [Left Arm] 127/93 Blood Pressure Mean Blood Pressure Mean [Left Arm] 104 Pulse Oximetry 98 97 Oxygen Delivery Method Room Air Room Air Sepsis Recent Fever Within 48 Hours No Sepsis New/Unexplained Change in Mental Status No Sepsis Action Taken by Nursing No Action Required 06/16/25 16:47 06/16/25 16:52 06/16/25 17:00 Pulse Rate 106 H 102 H Pulse Rate [Finger] Pulse Rate from SpO2 Sensor 102 H Pulse Rhythm [Finger] Pulse Strength [Finger] Respiratory Rate 20 Respiratory Effort / Characteristics Respiratory Depth Blood Pressure 157/117 H Blood Pressure [Left Arm] Blood Pressure Mean 140 Blood Pressure Mean [Left Arm] Pulse Oximetry 96 94 Oxygen Delivery Method Room Air Sepsis Recent Fever Within 48 Hours Sepsis New/Unexplained Change in Mental Status Sepsis Action Taken by Nursing 06/16/25 18:31 06/16/25 20:09 06/16/25 20:47 Pulse Rate 93 H 90 Pulse Rate [Finger] 92 H Pulse Rate from SpO2 Sensor 94 H Pulse Rhythm [Finger] Pulse Strength [Finger] Respiratory Rate 20 22 Respiratory Effort / Characteristics Non-Labored Spontaneous Respiratory Depth Normal Blood Pressure 156/85 H Blood Pressure [Left Arm] 108/77 Blood Pressure Mean 98 Blood Pressure Mean [Left Arm] 87 Pulse Oximetry 95 96 Oxygen Delivery Method Room Air Sepsis Recent Fever Within 48 Hours Sepsis New/Unexplained Change in Mental Status Sepsis Action Taken by Nursing Laboratory Data 06/16/25 17:19 06/16/25 17:19 Lab Results 06/16/25 06/16/25 06/16/25 Range/Units 16:47 17:19 17:20 WBC 18.58 H (4.8-10.8) K/ul RBC 5.44 (4.70-6.10) M/uL Hgb 13.4 L (14.0-18.0) g/dl Hct 41.1 L (42.0-52.0) % MCV 75.6 L (80.0-100.0) fL MCH 24.6 L (25.0-34.0) pg MCHC 32.6 (32.0-36.0) g/dL RDW Std Deviation 41.3 (36.4-46.3) fL RDW Coeff of Oziel 15.7 H (11.5-14.5) % Plt Count 190 (130-400) K/uL MPV 9.9 (9.4-12.4) fL Immature Gran % (Auto) 0.7 % Neut % (Auto) 93.1 % Lymph % (Auto) 2.0 % Hemphill % (Auto) 3.9 % Eos % (Auto) 0.0 % Baso % (Auto) 0.3 % Neut # (Auto) 17.29 H (1.40-6.50) K/uL Lymph # (Auto) 0.38 L (1.20-3.40) K/uL Hemphill # (Auto) 0.73 H (0.11-0.59) K/uL Eos # (Auto) 0.00 (0.00-0.50) K/uL Baso # (Auto) 0.05 (0.00-0.20) K/uL Immature Gran # (Auto) 0.13 (0.01-0.20) K/uL PT 14.5 H (9.0-12.0) Seconds INR 1.4 H (0.9-1.1) Sodium 125 L (136-145) mmol/L Potassium 4.4 (3.5-5.1) mmol/L Chloride 93 L (98-107) mmol/L Carbon Dioxide 19 L (21-32) mmol/L Anion Gap 13 H (3-11) BUN 15 (6-23) mg/dl Creatinine 1.11 (0.6-1.4) mg/dl Est Cr Clr Drug Dosing Not Reportable eGFR 76.97 BUN/Creatinine Ratio 13.5 (10-20) Glucose 295 H (70-99(Fasting)) mg/dl Osmolality 271 L (280-300) mOsm/kg Lactate (0.4-2.0) mmol/L Calcium 9.0 (8.6-10.3) mg/dl Magnesium 1.7 (1.7-2.4) mg/dl Total Bilirubin 2.4 H (0.2-1.0) mg/dl AST 11 L (13-39) U/L ALT 8 (7-52) U/L Alkaline Phosphatase 88 (34-104) U/L Troponin I High Sens 8.1 (0-20) pg/ml B-Natriuretic Peptide 968 H (0-100) pg/ml Total Protein 7.1 (6.0-8.3) gm/dl Albumin 3.3 L (3.4-5.0) gm/dl Globulin 3.8 (2.5-4.0) gm/dl Albumin/Globulin Ratio 0.9 (0.9-2) Procalcitonin 0.57 H (0-0.5) ng/ml TSH 18.091 H (0.300-4.500) uIu/ml Free T4 0.59 L (0.61-1.60) ng/dl Adenovirus (PCR) Not Detected (NotDetected) B. pertussis DNA (PCR) Not Detected (NotDetected) B.parapertussis DNA PCR Not Detected (NotDetected) C. pneumoniae DNA (PCR) Not Detected (NotDetected) Coronavirus OC43 (PCR) Not Detected (NotDetected) Coronavirus HKU1 (PCR) Not Detected (NotDetected) Coronavirus 229E (PCR) Not Detected (NotDetected) SARS-CoV-2 (PCR) Not Detected (NotDetected) Coronavirus NL63 (PCR) Not Detected (NotDetected) Human Metapneumovir PCR Not Detected (NotDetected) Influenza Type A (PCR) Not Detected (NotDetected) Influenza Type B (PCR) Not Detected (NotDetected) M. pneumoniae (PCR) Not Detected (NotDetected) Parainfluenza 1 (PCR) Not Detected (NotDetected) Parainfluenza 2 (PCR) Not Detected (NotDetected) Parainfluenza 3 (PCR) Not Detected (NotDetected) Parainfluenza 4 (PCR) Not Detected (NotDetected) RSV (PCR) Not Detected (NotDetected) Entero/Rhino (PCR) Not Detected (NotDetected) 06/16/25 Range/Units 19:20 WBC (4.8-10.8) K/ul RBC (4.70-6.10) M/uL Hgb (14.0-18.0) g/dl Hct (42.0-52.0) % MCV (80.0-100.0) fL MCH (25.0-34.0) pg MCHC (32.0-36.0) g/dL RDW Std Deviation (36.4-46.3) fL RDW Coeff of Oziel (11.5-14.5) % Plt Count (130-400) K/uL MPV (9.4-12.4) fL Immature Gran % (Auto) % Neut % (Auto) % Lymph % (Auto) % Hemphill % (Auto) % Eos % (Auto) % Baso % (Auto) % Neut # (Auto) (1.40-6.50) K/uL Lymph # (Auto) (1.20-3.40) K/uL Hemphill # (Auto) (0.11-0.59) K/uL Eos # (Auto) (0.00-0.50) K/uL Baso # (Auto) (0.00-0.20) K/uL Immature Gran # (Auto) (0.01-0.20) K/uL PT (9.0-12.0) Seconds INR (0.9-1.1) Sodium (136-145) mmol/L Potassium (3.5-5.1) mmol/L Chloride (98-107) mmol/L Carbon Dioxide (21-32) mmol/L Anion Gap (3-11) BUN (6-23) mg/dl Creatinine (0.6-1.4) mg/dl Est Cr Clr Drug Dosing eGFR BUN/Creatinine Ratio (10-20) Glucose (70-99(Fasting)) mg/dl Osmolality (280-300) mOsm/kg Lactate 2.7 H* (0.4-2.0) mmol/L Calcium (8.6-10.3) mg/dl Magnesium (1.7-2.4) mg/dl Total Bilirubin (0.2-1.0) mg/dl AST (13-39) U/L ALT (7-52) U/L Alkaline Phosphatase (34-104) U/L Troponin I High Sens (0-20) pg/ml B-Natriuretic Peptide (0-100) pg/ml Total Protein (6.0-8.3) gm/dl Albumin (3.4-5.0) gm/dl Globulin (2.5-4.0) gm/dl Albumin/Globulin Ratio (0.9-2) Procalcitonin (0-0.5) ng/ml TSH (0.300-4.500) uIu/ml Free T4 (0.61-1.60) ng/dl Adenovirus (PCR) (NotDetected) B. pertussis DNA (PCR) (NotDetected) B.parapertussis DNA PCR (NotDetected) C. pneumoniae DNA (PCR) (NotDetected) Coronavirus OC43 (PCR) (NotDetected) Coronavirus HKU1 (PCR) (NotDetected) Coronavirus 229E (PCR) (NotDetected) SARS-CoV-2 (PCR) (NotDetected) Coronavirus NL63 (PCR) (NotDetected) Human Metapneumovir PCR (NotDetected) Influenza Type A (PCR) (NotDetected) Influenza Type B (PCR) (NotDetected) M. pneumoniae (PCR) (NotDetected) Parainfluenza 1 (PCR) (NotDetected) Parainfluenza 2 (PCR) (NotDetected) Parainfluenza 3 (PCR) (NotDetected) Parainfluenza 4 (PCR) (NotDetected) RSV (PCR) (NotDetected) Entero/Rhino (PCR) (NotDetected) Administered Medications Discontinued Medications Ciprofloxacin (Cipro / D5w) 400 mg in 200 mls @ 100 mls/hr IV NOW STA; Protocol Stop: 06/16/25 21:44 Last Admin: 06/16/25 20:04 Dose: 100 mls/hr Documented By: ASIF Metronidazole (Flagyl) 500 mg in 100 mls @ 100 mls/hr IV NOW STA; Protocol Stop: 06/16/25 20:44 Last Admin: 06/16/25 20:03 Dose: 100 mls/hr Documented By: ASIF Ioversol (Optiray 320 100ml) 93 ml IV ONCE ONE Stop: 06/16/25 19:12 Last Admin: 06/16/25 19:12 Dose: 93 ml Documented By: [facility] Imaging Data Radiologist's Impression: Chest X-Ray 06/16/25 16:39 Chest radiograph, one view History: Dyspnea Comparison: None Findings: Single AP view of the chest performed. No focal consolidation or pleural effusion. No pneumothorax. The cardiomediastinal silhouette is within normal limits. Normal pulmonary vascularity. No evidence for lymphadenopathy. No visualized bony or soft tissue abnormality. Impression: Normal chest radiograph Electronically signed by Martinez Dugan 06-16-2025 6:06 PM Abdomen/Pelvis CT 06/16/25 18:07 EXAMINATION: CT of the abdomen and pelvis performed after the administration of IV contrast TECHNIQUE: Helical CT images from the lung bases through the symphysis pubis were obtained with contrast. Coronal and sagittal reformatted images were generated at a workstation for further assessment. Dose reduction techniques were achieved by using automatic exposure control and/or adjustment of mA and/or kV according to patient size and/or use of iterative reconstruction technique. COMPARISON: None HISTORY: Abdominal pain FINDINGS: Lower chest: The heart is enlarged. Dilated left ventricular cavity. An area of low attenuating density at the left ventricular apex is seen, measuring 19 mm in diameter most consistent with LV thrombus. There are small pleural effusions bilaterally. Prominent areas of consolidative opacity throughout both lung base bilateral segmental and subsegmental pulmonary emboli. Liver: No suspicious liver lesions. Portal veins appear patent. Gallbladder: No gallstones. No evidence of acute cholecystitis. The common bile duct stent is in place. Tiny focus of air in the gallbladder related to the stent. Spleen: Normal size. Focal wedge-shaped area of hypoenhancement is seen near the superior pole. Pancreas: No suspicious pancreatic lesions. The pancreatic duct is not dilated. Adrenal glands: No adrenal nodules. Kidneys: No hydronephrosis or obstructing renal stones. Bladder / Pelvic organs: Unremarkable. Bowel: No bowel obstruction. No abnormal bowel wall thickening. The appendix is unremarkable. Lymph nodes: No retroperitoneal, mesenteric, or pelvic lymphadenopathy. Peritoneum / Retroperitoneum: No free fluid or air within the abdomen. Vessels: No infrarenal aortic aneurysm. Bones and soft tissues: No suspicious lesion in the bones. IMPRESSION: Bilateral pulmonary emboli are partially seen. There are prominent areas of consolidative opacity throughout the lung bases, suspicious for infarction in the setting of pulmonary emboli, versus possibly infection. Cardiomegaly with dilated left ventricular cavity, with an area of low density material at the LV apex, consistent with thrombus. A wedge-shaped area of hypoenhancement at the superior spleen is consistent with splenic infarct. Electronically signed by Martinez Dugan 06-16-2025 8:02 PM Discharge Plan Visit Data Chief Complaint: Shortness of Breath/Dyspnea Stated Complaint: OUT OF BREATH, NOT EATING ED Provider: Kassandra Downs ED Midlevel Provider: Kelley Beltre Discharge Problem: Acute dyspnea, Nausea & vomiting, Splenic infarction, Pulmonary embolism, bilateral Patient Disposition: Admitted As Inpatient Condition: Serious Discharge Instructions Interventions: ED Discharge Assessment Last Done: 06/16/25 21:20 Forms Stand Alone Forms: [employer] Prescriptions Prescriptions: No Action aspirin 81 mg tablet,delayed release (DR/EC) 81 mg PO QAM acetaminophen 650 mg Tablet Extended Release 650 mg PO Q8H PRN (Reason: Pain) tamsulosin [Flomax] 0.4 mg Capsule 0.4 mg PO DAILY nystatin 100,000 unit/gram Powder 1 applic TOPICAL TID PRN (Reason: APPLY TO SCROTUM NEEDED) Hold Instructions: Resume on 05/02/25. discuss w/ primary care doctor if/when to resume clotrimazole 1 % Cream 1 applic TOPICAL TID PRN (Reason: AFFECTED AREAS) Hold Instructions: Resume on 05/02/25. discuss w/ primary care doctor if/when to resume insulin glargine [Lantus Solostar U-100 Insulin] 100 unit/mL (3 mL) Insulin Pen 40 unit SUBCUT HS Hold Instructions: Resume on 05/02/25. discuss new dose with primary care physician before resuming Eliquis 5 mg Tablet 5 mg PO BID Qty: 60 0RF metoprolol succinate 25 mg Tablet Extended Release 24 Hr 25 mg PO DAILY Qty: 30 0RF isosorbide mononitrate 30 mg Tablet Extended Release 24 Hr 30 mg PO DAILY Qty: 30 0RF lisinopril 5 mg Tablet 5 mg PO QAM Qty: 30 0RF rosuvastatin 10 mg Tablet 10 mg PO QAM Qty: 30 0RF aripiprazole 2 mg Tablet 2 mg PO QAM Qty: 30 0RF sertraline 50 mg Tablet 50 mg PO QAM Qty: 30 0RF Advanced Probiotic 625 mg (10 billion cell) Capsule 1 cap PO DAILY Qty: 7 0RF pantoprazole 40 mg Tablet,Delayed Release (Dr/Ec) 40 mg PO QAM Qty: 30 0RF levothyroxine 175 mcg Tablet 175 mcg PO DAILYBB Qty: 30 0RF metformin 500 mg Tablet Extended Release 24 Hr 500 mg PO DIRECTED Qty: 30 0RF Rx Instructions: 500 MG QAM X 2 WEEKS, THEN INCREASE TO 1,000 MG QAM. cyanocobalamin (vitamin B-12) 500 mcg Tablet 1,000 mcg PO DAILY Qty: 30 0RF nitroglycerin [Nitrostat] 0.4 mg Tablet, Sublingual 0.4 mg sublingual DIRECTED PRN (Reason: Chest Pain) Referrals Referrals: Jennifer Jimenez, [Primary Care Provider] -
[2025-06-16] MEDS: OPTIRAY 320 100ml IV ONE (19:12)
--- NOTE | 2025-06-16 20:02 | CT Scan Report ---
EXAMINATION: CT of the abdomen and pelvis performed after the administration of IV contrast TECHNIQUE: Helical CT images from the lung bases through the symphysis pubis were obtained with contrast. Coronal and sagittal reformatted images were generated at a workstation for further assessment. Dose reduction techniques were achieved by using automatic exposure control and/or adjustment of mA and/or kV according to patient size and/or use of iterative reconstruction technique. COMPARISON: None HISTORY: Abdominal pain FINDINGS: Lower chest: The heart is enlarged. Dilated left ventricular cavity. An area of low attenuating density at the left ventricular apex is seen, measuring 19 mm in diameter most consistent with LV thrombus. There are small pleural effusions bilaterally. Prominent areas of consolidative opacity throughout both lung base bilateral segmental and subsegmental pulmonary emboli. Liver: No suspicious liver lesions. Portal veins appear patent. Gallbladder: No gallstones. No evidence of acute cholecystitis. The common bile duct stent is in place. Tiny focus of air in the gallbladder related to the stent. Spleen: Normal size. Focal wedge-shaped area of hypoenhancement is seen near the superior pole. Pancreas: No suspicious pancreatic lesions. The pancreatic duct is not dilated. Adrenal glands: No adrenal nodules. Kidneys: No hydronephrosis or obstructing renal stones. Bladder / Pelvic organs: Unremarkable. Bowel: No bowel obstruction. No abnormal bowel wall thickening. The appendix is unremarkable. Lymph nodes: No retroperitoneal, mesenteric, or pelvic lymphadenopathy. Peritoneum / Retroperitoneum: No free fluid or air within the abdomen. Vessels: No infrarenal aortic aneurysm. Bones and soft tissues: No suspicious lesion in the bones. IMPRESSION: Bilateral pulmonary emboli are partially seen. There are prominent areas of consolidative opacity throughout the lung bases, suspicious for infarction in the setting of pulmonary emboli, versus possibly infection. Cardiomegaly with dilated left ventricular cavity, with an area of low density material at the LV apex, consistent with thrombus. A wedge-shaped area of hypoenhancement at the superior spleen is consistent with splenic infarct. Electronically signed by Martinez Dugan 06-16-2025 8:02 PM
[2025-06-16] MEDS: metroNIDAZOLE 500 MG/100 ML BAG IV STA (20:03)
[2025-06-16] MEDS: CIPROFLOXACIN / D5W 400 MG/200 ML BAG IV STA (20:04)
--- NOTE | 2025-06-16 20:43 | History & Physical Report ---
Date of Service June 16, 2025 Assessment & Plan (1) SOB (shortness of breath): Plan: Assessment and plan below following discussion of case with ED provider and reviewing patient history/pertinent normal/abnormal diagnostic test results. Shortness of breath Multifactorial Severe sepsis (SIRS plus lactic acidosis) secondary to aspiration pneumonia Pulmonary embolism rule out LE clot a source, history of cardiac thrombus, NOAC noncompliance Splenic infarct likely from cardiac thrombus, NOAC noncompliance Hypovolemic hypoosmolar hyponatremia secondary to illness chronic systolic heart failure EF (20 to 25%, TTE 2024), patient on the dry side valvular heart disease (mild MR/TR) hx CAD hypertension, stable hyperlipidemia, on statin Rx CHARLEEN CPAP intolerance hx CVA DM2 insulin requiring, patient hyperglycemic secondary to medication noncompliance, well-controlled as recent hemoglobin A1c of 6.8 last January 2025. 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 (Patient has verbalized interest in pursuing hospice for his situation. He does not feel medications are helping him feel better about himself.) Continue current levothyroxine dose, recheck TSH outpatient after 6 weeks if patient not transitioning to hospice Basal bolus insulin, ISS BG goal 1 10-1 40, carb count coverage, update hemoglobin A1c DVT prophylaxis. IV heparin DNR Patient brother requesting updates providers. Mr. Jose Corbin, contact #[phone]. Text document was generated using [employer] voice recognition software. It may contain grammatical or spelling errors. Kindly contact undersigned for clarification of any documentation item in question. History of Present Illness Chief Complaint: Weakness, falling, shortness of breath Primary Care Provider: Jennifer Jimenez DO History obtained from patient, family, and records. Patient is a fair historian. Medical history significant for chronic systolic heart failure EF (20 to 25%, TTE 2024), valvular heart disease (mild MR/TR), cardiac thrombus (currently noncompliant with Eliquis), CAD, hypertension, hyperlipidemia, CHARLEEN CPAP intolerance, CVA, DM2 insulin requiring, hypothyroidism, chronic anemia (baseline hemoglobin of 13), anxiety/mood disorder, medication noncompliance. Last confinement April 2025 for chest pain and medication noncompliance. TTE showed large apical thrombus. Patient discharged on Eliquis as per cardiology recommendations. Patient also seen by Psychiatry for depression/suicidality during confinement. Abilify and sertraline added to regimen. Patient stopped taking medications a few weeks after returning home. [place] medications were not helping. "No will to live" as per patient. Patient still depressed but denies suicidality. Patient counseled by PCP to take medications on follow-up visit last month. Last week, patient noted nausea/vomiting symptoms later followed by dry cough. Worsening SOB. Admits to occasional coughing with food/water intake. Patient denies abdominal pain. No chest pain complaints. Not sure about sick contacts. Patient increasingly weak at home. Recurrent falls the last 2 days without syncope. Patient brought to ER for evaluation. IV Cipro, Flagyl, and heparin infusion administered at the ER. Medical History as above Surgical History : Strabismus surgery, dental surgery Family History : Asthma, DM, CHARLEEN Personal/Social history : Non-smoker, occasional EtOH intake, currently unemployed Allergies Allergy/AdvReac Type Severity Reaction Status Date / Time Penicillins Allergy Severe 1969--ANAPH Verified 04/24/25 17:50 YLAXIS doxycycline Allergy Intermediate HIVES Verified 04/24/25 17:50 Macrolide Antibiotics Allergy Unknown UNKNOWN Verified 04/24/25 17:50 morphine AdvReac Intermediate GI UPSET Verified 04/24/25 17:50 Home Medications Medication Instructions Recorded Confirmed Type nitroglycerin 0.4 mg sublingual 0.4 mg sublingual DIRECTED PRN 01/05/25 06/16/25 History tablet (Nitrostat) Chest Pain acetaminophen 650 mg 650 mg PO Q8H PRN Pain 04/24/25 06/16/25 History tablet,extended release aspirin 81 mg tablet,delayed 81 mg PO QAM 04/24/25 06/16/25 History release clotrimazole 1 % topical cream 1 applic topical TID PRN AFFECTED 04/24/25 06/16/25 History AREAS insulin glargine 100 unit/mL (3 40 unit subcut HS 04/24/25 06/16/25 History mL) subcutaneous pen (Lantus Solostar U-100 Insulin) nystatin 100,000 unit/gram topical 1 applic topical TID PRN APPLY TO 04/24/25 06/16/25 History powder SCROTUM NEEDED tamsulosin 0.4 mg capsule (Flomax) 0.4 mg PO DAILY 04/24/25 06/16/25 History L.acidop,casei,lactis,rham-B.lact,odessa 1 cap PO DAILY #7 caps 04/29/25 06/16/25 Rx 625 mg (10 billion cell) capsule (Advanced Probiotic) apixaban 5 mg tablet (Eliquis) 5 mg PO BID #60 tabs 04/29/25 06/16/25 Rx aripiprazole 2 mg tablet 2 mg PO QAM #30 tabs 04/29/25 06/16/25 Rx cyanocobalamin (vitamin B-12) 500 1,000 mcg (2 x 500 mcg) PO DAILY 04/29/25 06/16/25 Rx mcg tablet #30 tabs isosorbide mononitrate 30 mg 30 mg PO DAILY #30 tabs 04/29/25 06/16/25 Rx tablet,extended release 24 hr levothyroxine 175 mcg tablet 175 mcg PO DAILYBB #30 tabs 04/29/25 06/16/25 Rx lisinopril 5 mg tablet 5 mg PO QAM #30 tabs 04/29/25 06/16/25 Rx metformin 500 mg tablet,extended 500 mg PO DIRECTED #30 tabs 04/29/25 06/16/25 Rx release 24 hr metoprolol succinate 25 mg 25 mg PO DAILY #30 tabs 04/29/25 06/16/25 Rx tablet,extended release 24 hr pantoprazole 40 mg tablet,delayed 40 mg PO QAM #30 tabs 04/29/25 06/16/25 Rx release rosuvastatin 10 mg tablet 10 mg PO QAM #30 tabs 04/29/25 06/16/25 Rx sertraline 50 mg tablet 50 mg PO QAM #30 tabs 04/29/25 06/16/25 Rx Past Med/Surg History Problem List (Updated 06/16/25 @ 22:08 by Kassandra Downs MD) Pulmonary embolism, bilateral (Acute) Splenic infarction (Acute) Nausea & vomiting (Acute) Acute dyspnea (Acute) LV (left ventricular) mural thrombus Ischemic cardiomyopathy Heart failure with reduced ejection fraction (HFrEF) CAD (coronary artery disease) Nonadherence to medication (Acute) Weakness (Acute) Hypertension (Acute) CHF (congestive heart failure) (Acute) Hypothyroid (Acute) SOB (shortness of breath) (Acute) Recurrent falls Urinary retention Oliguria Ambulatory dysfunction Knee pain Fall (Acute) Weakness (Acute) COVID-19 virus infection Dyspnea on minimal exertion (Acute) CHF (congestive heart failure) (Acute) COVID-19 (Acute) Acute hypoxemic respiratory failure Non-ST elevation VT (NSTEMI) (Acute) Phlegmonous cellulitis Hyponatremia (Acute) History of CVA (cerebrovascular accident) Morbid obesity DM2 (diabetes mellitus, type 2) Cellulitis (Acute) Depression HTN (hypertension) CHF (congestive heart failure) Morbid obesity with BMI of 50.0-59.9, adult Pancreatitis Cholangitis concurrent with and due to calculus of gallbladder Hyperlipidemia, unspecified Hypothyroidism, unspecified Obstructive sleep apnea (adult) (pediatric) Unspecified cerebral artery occlusion with cerebral infarction Medical History Bilateral knee pain Hypertension Diabetes Social History Smoking Status: Never smoker Hx Alcohol Use: No Hx Substance Use: No Preferred Language: Faroese Communication Ability: Effective 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 Beliefs That Will Affect Care: None Current Living Situation: Alone Current Living Situation Comment: home alone Other Information That Helps Us Care for You: No Feels Safe at Home: Yes Safety Concerns: Feels Safe At This Time Gender Identity: Male Assistive Devices: Cane, Denture - Upper, Denture - Lower and Walker Review of Systems Review of Systems: As per HPI, all other systems reviewed and negative Physical Exam Physical Exam: GENERAL: Slightly uncomfortable, obese, ill-appearing, no respiratory distress SKIN: Pallor, warm HEENT: Alopecia, pale palpebral conjunctivae, no ptosis, dry buccal mucosa NECK : Supple, no tenderness CHEST : Decreased breath sounds, occasional expiratory wheezes, no tenderness HEART : Diminished S1-S2, RRR, no obvious murmurs ABDOMEN: Some distention, nontender EXTREMITIES : Minimal LE swelling, no LE tenderness, no other conspicuous deformities noted NEUROLOGIC : Oriented to place, no facial asymmetry, gait and stance not assessed Results & Data Results & Data Vital Signs (Past 12 Hours) Vital Signs Pulse Pulse Resp BP BP Pulse Ox O2 Del Method 06/16/25 20:09 92 H 22 108/77 96 Room Air 06/16/25 18:31 93 H 20 156/85 H 95 06/16/25 17:00 102 H 20 157/117 H 94 06/16/25 16:52 106 H 06/16/25 16:47 96 Room Air 06/16/25 16:42 107 H 24 127/93 97 Room Air 06/16/25 16:42 98 Room Air Laboratory Results Laboratory Results WBC 18.58 K/ul (4.8-10.8) H 06/16/25 17:19 RBC 5.44 M/uL (4.70-6.10) 06/16/25 17:19 Hgb 13.4 g/dl (14.0-18.0) L 06/16/25 17:19 Hct 41.1 % (42.0-52.0) L 06/16/25 17:19 MCV 75.6 fL (80.0-100.0) L 06/16/25 17:19 MCH 24.6 pg (25.0-34.0) L 06/16/25 17:19 MCHC 32.6 g/dL (32.0-36.0) 06/16/25 17:19 RDW Std Deviation 41.3 fL (36.4-46.3) 06/16/25 17:19 RDW Coeff of Oziel 15.7 % (11.5-14.5) H 06/16/25 17:19 Plt Count 190 K/uL (130-400) 06/16/25 17:19 MPV 9.9 fL (9.4-12.4) 06/16/25 17:19 Immature Gran % (Auto) 0.7 % 06/16/25 17:19 Neut % (Auto) 93.1 % 06/16/25 17:19 Lymph % (Auto) 2.0 % 06/16/25 17:19 [place] % (Auto) 3.9 % 06/16/25 17:19 Eos % (Auto) 0.0 % 06/16/25 17:19 Baso % (Auto) 0.3 % 06/16/25 17:19 Neut # (Auto) 17.29 K/uL (1.40-6.50) H 06/16/25 17:19 Lymph # (Auto) 0.38 K/uL (1.20-3.40) L 06/16/25 17:19 [place] # (Auto) 0.73 K/uL (0.11-0.59) H 06/16/25 17:19 Eos # (Auto) 0.00 K/uL (0.00-0.50) 06/16/25 17:19 Baso # (Auto) 0.05 K/uL (0.00-0.20) 06/16/25 17:19 Immature Gran # (Auto) 0.13 K/uL (0.01-0.20) 06/16/25 17:19 PT 14.5 Seconds (9.0-12.0) H 06/16/25 17:19 INR 1.4 (0.9-1.1) H 06/16/25 17:19 Sodium 125 mmol/L (136-145) L 06/16/25 17:19 Potassium 4.4 mmol/L (3.5-5.1) 06/16/25 17:19 Chloride 93 mmol/L (98-107) L 06/16/25 17:19 Carbon Dioxide 19 mmol/L (21-32) L 06/16/25 17:19 Anion Gap 13 (3-11) H 06/16/25 17:19 BUN 15 mg/dl (6-23) 06/16/25 17:19 Creatinine 1.11 mg/dl (0.6-1.4) 06/16/25 17:19 Est Cr Clr Drug Dosing Not Reportable 06/16/25 17:19 eGFR 76.97 06/16/25 17:19 BUN/Creatinine Ratio 13.5 (10-20) 06/16/25 17:19 Glucose 295 mg/dl (70-99(Fasting)) H 06/16/25 17:19 Lactate 2.7 mmol/L (0.4-2.0) H* 06/16/25 19:20 Calcium 9.0 mg/dl (8.6-10.3) 06/16/25 17:19 Magnesium 1.7 mg/dl (1.7-2.4) 06/16/25 17:19 Total Bilirubin 2.4 mg/dl (0.2-1.0) H 06/16/25 17:19 AST 11 U/L (13-39) L 06/16/25 17:19 ALT 8 U/L (7-52) 06/16/25 17:19 Alkaline Phosphatase 88 U/L (34-104) 06/16/25 17:19 Troponin I High Sens 8.1 pg/ml (0-20) 06/16/25 17:19 B-Natriuretic Peptide 968 pg/ml (0-100) H 06/16/25 17:19 Total Protein 7.1 gm/dl (6.0-8.3) 06/16/25 17:19 Albumin 3.3 gm/dl (3.4-5.0) L 06/16/25 17:19 Globulin 3.8 gm/dl (2.5-4.0) 06/16/25 17:19 Albumin/Globulin Ratio 0.9 (0.9-2) 06/16/25 17:19 Procalcitonin 0.57 ng/ml (0-0.5) H 06/16/25 17:20 Adenovirus (PCR) Not Detected (NotDetected) 06/16/25 16:47 B. pertussis DNA (PCR) Not Detected (NotDetected) 06/16/25 16:47 B.parapertussis DNA PCR Not Detected (NotDetected) 06/16/25 16:47 C. pneumoniae DNA (PCR) Not Detected (NotDetected) 06/16/25 16:47 Coronavirus OC43 (PCR) Not Detected (NotDetected) 06/16/25 16:47 Coronavirus HKU1 (PCR) Not Detected (NotDetected) 06/16/25 16:47 Coronavirus 229E (PCR) Not Detected (NotDetected) 06/16/25 16:47 SARS-CoV-2 (PCR) Not Detected (NotDetected) 06/16/25 16:47 Coronavirus NL63 (PCR) Not Detected (NotDetected) 06/16/25 16:47 Human Metapneumovir PCR Not Detected (NotDetected) 06/16/25 16:47 Influenza Type A (PCR) Not Detected (NotDetected) 06/16/25 16:47 Influenza Type B (PCR) Not Detected (NotDetected) 06/16/25 16:47 M. pneumoniae (PCR) Not Detected (NotDetected) 06/16/25 16:47 Parainfluenza 1 (PCR) Not Detected (NotDetected) 06/16/25 16:47 Parainfluenza 2 (PCR) Not Detected (NotDetected) 06/16/25 16:47 Parainfluenza 3 (PCR) Not Detected (NotDetected) 06/16/25 16:47 Parainfluenza 4 (PCR) Not Detected (NotDetected) 06/16/25 16:47 RSV (PCR) Not Detected (NotDetected) 06/16/25 16:47 Entero/Rhino (PCR) Not Detected (NotDetected) 06/16/25 16:47 Impressions Chest X-Ray 06/16/25 16:39 Chest radiograph, one view History: Dyspnea Comparison: None Findings: Single AP view of the chest performed. No focal consolidation or pleural effusion. No pneumothorax. The cardiomediastinal silhouette is within normal limits. Normal pulmonary vascularity. No evidence for lymphadenopathy. No visualized bony or soft tissue abnormality. Impression: Normal chest radiograph Electronically signed by Martinez Dugan 06-16-2025 6:06 PM Abdomen/Pelvis CT 06/16/25 18:07 EXAMINATION: CT of the abdomen and pelvis performed after the administration of IV contrast TECHNIQUE: Helical CT images from the lung bases through the symphysis pubis were obtained with contrast. Coronal and sagittal reformatted images were generated at a workstation for further assessment. Dose reduction techniques were achieved by using automatic exposure control and/or adjustment of mA and/or kV according to patient size and/or use of iterative reconstruction technique. COMPARISON: None HISTORY: Abdominal pain FINDINGS: Lower chest: The heart is enlarged. Dilated left ventricular cavity. An area of low attenuating density at the left ventricular apex is seen, measuring 19 mm in diameter most consistent with LV thrombus. There are small pleural effusions bilaterally. Prominent areas of consolidative opacity throughout both lung base bilateral segmental and subsegmental pulmonary emboli. Liver: No suspicious liver lesions. Portal veins appear patent. Gallbladder: No gallstones. No evidence of acute cholecystitis. The common bile duct stent is in place. Tiny focus of air in the gallbladder related to the stent. Spleen: Normal size. Focal wedge-shaped area of hypoenhancement is seen near the superior pole. Pancreas: No suspicious pancreatic lesions. The pancreatic duct is not dilated. Adrenal glands: No adrenal nodules. Kidneys: No hydronephrosis or obstructing renal stones. Bladder / Pelvic organs: Unremarkable. Bowel: No bowel obstruction. No abnormal bowel wall thickening. The appendix is unremarkable. Lymph nodes: No retroperitoneal, mesenteric, or pelvic lymphadenopathy. Peritoneum / Retroperitoneum: No free fluid or air within the abdomen. Vessels: No infrarenal aortic aneurysm. Bones and soft tissues: No suspicious lesion in the bones. IMPRESSION: Bilateral pulmonary emboli are partially seen. There are prominent areas of consolidative opacity throughout the lung bases, suspicious for infarction in the setting of pulmonary emboli, versus possibly infection. Cardiomegaly with dilated left ventricular cavity, with an area of low density material at the LV apex, consistent with thrombus. A wedge-shaped area of hypoenhancement at the superior spleen is consistent with splenic infarct. Electronically signed by Martinez Dugan 06-16-2025 8:02 PM
[2025-06-16 21:10] LABS: Thyroid Stimulating Hormone 18.091 uIu/ml (0.300-4.500)
[2025-06-16] MEDS ORDERED: GLUCOSE 40% GEL 15 GM TUBE PO PRN (22:28)
[2025-06-16] MEDS ORDERED: GLUCAGON FOR INJ 1 MG VIAL SQ PRN (22:28)
[2025-06-16] MEDS ORDERED: GLUCOSE 10 TAB/TUBE PO PRN (22:28)
[2025-06-16] MEDS: LANTUS PER UNIT CHARGE SQ SCH ×2 (22:34→22:44)
[2025-06-16] MEDS: INSULIN ASPART PER UNIT CHARGE SC SCH (22:43)
[2025-06-16] MEDS: IPRATROPIUM BROMIDE NEB SOLN 0.02% 0.5MG/2.5ML VIAL INH STA (22:58)
[2025-06-16] MEDS: LEVALBUTEROL 1.25 MG/3 ML NEB NEB STA (22:58)
[2025-06-16 23:06] LABS: Base Excess VBG -0.8 mEq/L; HCO3 VBG 24 mmol/L; Oxygen Saturation VBG < 60.0 %; PCO2 VBG 37 mmHg (38-50); PO2 VBG 28 mmHg; pH VBG 7.41 (7.36-7.41)
[2025-06-16] MEDS: ALBUMIN 25% 25 GM/100 ML VIAL IV ONE (23:08)
[2025-06-16] MEDS: HEPARIN 25000 UNIT/500 ML D5W 25,000 UNITS/500 ML BAG IV SCH (23:14)
[2025-06-16] MEDS: HEPARIN SOD (PORCINE) 1000 UNIT/ML IV ONE ×2 (23:14→23:16)
[2025-06-16] MEDS: Heparin IV Adult Wt-Based Standard w/ INITIAL Bolus Protocol IV STA (23:16)
[2025-06-17] MEDS: LACTATED RINGER'S 1,000 ML IV ONE ×2 (00:16→08:53)
[2025-06-17] MEDS: BENZONATATE 100 MG CAPSULE PO PRN (03:08)
[2025-06-17] MEDS: MICONAZOLE NITRATE POWDER 85 GM EXT SCH (03:08)
--- NOTE | 2025-06-17 05:13 | Ultrasound Report ---
Exam(s): US VENOUS BILATERAL LOWER EXTREMITIES EXAM: US Duplex Bilateral Lower Extremities Veins CLINICAL HISTORY: Leg swelling. TECHNIQUE: Real-time duplex ultrasound scan of the bilateral lower extremity veins integrating B-mode two-dimensional vascular structure, Doppler spectral analysis, color flow Doppler imaging and compression. COMPARISON: No relevant prior studies available. FINDINGS: Right deep veins: Unremarkable. No Deep vein thrombosis in the right common femoral, femoral, proximal deep femoral or popliteal veins. The veins demonstrate normal color flow, are normally compressible, with normal phasic flow and/or augmentation response. Right superficial veins: Unremarkable. No thrombus in the visualized right great saphenous vein. Left deep veins: Nonocclusive deep venous thrombosis of the left common femoral vein. The left superficial femoral vein, popliteal vein and veins calf are patent. Left superficial veins: There is thrombophlebitis of the left greater saphenous vein. Soft tissues: Nonspecific subcutaneous edema bilaterally. No popliteal cyst. IMPRESSION: 1. Nonocclusive deep venous thrombosis of the left common femoral vein. 2. There is thrombophlebitis of the left greater saphenous vein. 3. Nonspecific subcutaneous edema bilaterally. 4. No deep vein thrombosis of the right lower extremity. Communications: Verify Receipt Electronically signed by: Brenda Carolina MD 06/17/25 05:12 AM
[2025-06-17] MEDS: LEVOTHYROXINE SODIUM 175 MCG TABLET PO SCH (05:30)
[2025-06-17 05:45] LABS: Hematocrit (blood only) 35.5 % (42.0-52.0); Hemoglobin 11.9 g/dl (14.0-18.0); Mean Corpuscular Hemoglobin 25.2 pg (25.0-34.0); Mean Corpuscular Volume 75.1 fL (80.0-100.0); Platelet Count 171 K/uL (130-400); RDW Standard Deviation 41.3 fL (36.4-46.3); Red Blood Count 4.73 M/uL (4.70-6.10); White Blood Count 19.89 K/ul (4.8-10.8)
[2025-06-17 05:59] LABS: Anion Gap 10.0 (3-11); Blood Urea Nitrogen 17.0 mg/dl (6-23); Calcium 8.9 mg/dl (8.6-10.3); Carbon Dioxide 22.0 mmol/L (21-32); Chloride 94.0 mmol/L (98-107); Creatinine Clr Calc Pharmacy 72.9 ml/min; Glucose 172.0 mg/dl (70-99(Fasting)); Potassium 3.9 mmol/L (3.5-5.1); Sodium 126.0 mmol/L (136-145)
[2025-06-17 06:06] LABS: Immature Granulocytes # (auto) 0.11 K/uL (0.01-0.20); Immature Granulocytes % (auto) 0.6 %
[2025-06-17 06:07] LABS: ANTI-Xa, UFH(UnfractionatedHep 0.17 IU/ml (0.3-0.7)
--- NOTE | 2025-06-17 06:15 | Communication Note ---
Date of Service: June 17, 2025 5:55 AM Lactic acid 3.3 from 2.3 last night as per RN. WBC 19 from 18 Add azithromycin to Ertapenem for atypical coverage. (Unknown macrolide antibiotic allergy as per EMR. Patient has tolerated medication in the past upon patient clarification with RN.) Check MRSA nasal swab, add vancomycin to regimen if positive 6:30 AM Patient complaining of SOB as per RN. SBP 100s, O2 sats 95 on 2 L CXR as per my interpretation cardiomegaly, congestion Hold IVF Neb treatment now Lasix if BP allows
[2025-06-17] MEDS: HEPARIN SOD (PORCINE) 1000 UNIT/ML IV ONE ×2 (06:42→16:09)
[2025-06-17] MEDS: AZITHROMYCIN 500 MG/255 ML BAG IV ONE (06:42)
[2025-06-17 07:22] LABS: Hemoglobin A1C 9.4 % (4.5-5.6)
--- NOTE | 2025-06-17 07:48 | XRay Report ---
EXAM: XR chest 1V portable CLINICAL HISTORY: sob TECHNIQUE: Radiograph of chest was acquired. COMPARISON: 06/16/2025 16:37:00 MEDIA PROFESSIONAL FINDINGS: Blunting of bilateral costophrenic angle - suggestive of pleural effusion. Inhomogeneous opacities noted involving bilateral lower zones- possibility of congestive changes/pneumonitis. Rest of both lungs are clear. The cardiomediastinal silhouette is within normal limits. No acute osseous abnormality. IMPRESSION: Blunting of bilateral costophrenic angle - suggestive of pleural effusion.- slightly increased Inhomogeneous opacities noted involving bilateral lower zones- possibility of congestive changes/pneumonitis.- increased Electronically signed by Louie Quevedo 06-17-2025 07:47 AM
[2025-06-17] MEDS: ADVANCED PROBIOTIC 625 MG CAPSULE PO SCH (08:52)
[2025-06-17] MEDS: ASPIRIN 81 MG ECTAB PO SCH (08:53)
[2025-06-17] MEDS: CYANOCOBALAMIN (B-12) 500 MCG TABLET PO SCH (08:53)
[2025-06-17] MEDS: SERTRALINE HCL 50 MG TABLET PO SCH (08:53)
[2025-06-17] MEDS: TAMSULOSIN HCL 0.4 MG CAP PO SCH (08:53)
[2025-06-17] MEDS: ERTAPENEM 1000MG 1,000 MG/10 ML SYR IV SCH (08:55)
[2025-06-17] MEDS ORDERED: ISOSORBIDE MONO EXTENDED REL 30 MG TABCR PO SCH (09:00)
[2025-06-17] MEDS: METOPROLOL SUCC 25MG EXT REL TAB PO SCH (09:08)
--- NOTE | 2025-06-17 11:44 | Palliative Care Consultation ---
Date of Consultation June 17, 2025 Assessment & Plan (1) Palliative care by specialist: Met with pt at bedside from 12:00 - 12:30, for ACP discussion. No visitors present. Introduced Palliative Medicine and explained our role in advanced care planning, symptom management and navigation through the progression of life limiting disease. Patient was receptive to palliative services for goals of care discussions. Reviewed we are different from hospice, a home health nurse visiting service. (2) Counseling regarding goals of care: Met with pt at bedside, he was drowsy but arousable. He was difficult to engage in conversation and mostly limited to yes / no answers when asked about his medical history. He shared that he has heart disease, but did not verbalize awareness of other medical problems or treatment plan. pt reports that he has not taken any of his medications for several weeks, because he reports "I do not see the use, I just feel like I should ". Pt states that he has struggled with depression since his earlier this year and it has gotten worse over past several weeks when he lost his job. He denies any suicidal intent, denies plan or thought of hurting himself/others, but repeatedly stated "I feel like I should " and "no one would notice if I did". He shared that he has four brothers, a sister and his father that all live locally, but he does not interact with them and does not feel they are supportive of him. He shared that he used to enjoy reading [employer] novels, but has not been able to hold books recently so he does not read. He could not identify any other activities that bring him pleasure. He did however express interest in psychiatric intervention and responded positively when asked if he might have more desire to manage his medical care if his mood were improved. Pt shared that he does wish to continue life prolonging therapies at this time with hope that his chronic and situational depression can be managed better. He is aware that psych consult has been ordered. Pt confirmed desire for DNR/DNI status, but does wish to continue other life prolonging treatments at this time. Plan as above. History of Present Illness Reason for Consultation: goals of care Requesting Physician: Isadora Rivera MD Attending Physician: Isadora Rivera MD History of Present Illness Mr. Corbin is a 60M with PMHx significant for chronic systolic heart failure EF (20 to 25%, TTE 2024), valvular heart disease (mild MR/TR), cardiac thrombus (currently noncompliant with Eliquis), CAD, hypertension, hyperlipidemia, CHARLEEN CPAP intolerance, CVA, DM2 insulin requiring, hypothyroidism, chronic anemia (baseline hemoglobin of 13), anxiety/mood disorder, medication noncompliance. He has had recent frequent admissions, most recently in April 2025 for chest pain and medication noncompliance when TTE revealed large apical thrombus (discharged on Eliquis). During that admission he was seen by psychiatry for depression/SI and was also discharged on abilify and sertraline. He self reports not taking any prescribed medications for several weeks and reported to ED with c/o N/V and progressive weakness with recurrent falls. Allergies Allergy/AdvReac Type Severity Reaction Status Date / Time Penicillins Allergy Severe 1969--ANAPH Verified 04/24/25 17:50 YLAXIS doxycycline Allergy Intermediate HIVES Verified 04/24/25 17:50 Macrolide Antibiotics Allergy Unknown UNKNOWN Verified 06/17/25 06:18 morphine AdvReac Intermediate GI UPSET Verified 04/24/25 17:50 Home Medications Medication Instructions Recorded Confirmed Type nitroglycerin 0.4 mg sublingual 0.4 mg sublingual DIRECTED PRN 01/05/25 06/16/25 History tablet (Nitrostat) Chest Pain acetaminophen 650 mg 650 mg PO Q8H PRN Pain 04/24/25 06/16/25 History tablet,extended release aspirin 81 mg tablet,delayed 81 mg PO QAM 04/24/25 06/16/25 History release clotrimazole 1 % topical cream 1 applic topical TID PRN AFFECTED 04/24/25 06/16/25 History AREAS insulin glargine 100 unit/mL (3 40 unit subcut HS 04/24/25 06/16/25 History mL) subcutaneous pen (Lantus Solostar U-100 Insulin) nystatin 100,000 unit/gram topical 1 applic topical TID PRN APPLY TO 04/24/25 06/16/25 History powder SCROTUM NEEDED tamsulosin 0.4 mg capsule (Flomax) 0.4 mg PO DAILY 04/24/25 06/16/25 History L.acidop,casei,lactis,rham-B.lact,odessa 1 cap PO DAILY #7 caps 04/29/25 06/16/25 Rx 625 mg (10 billion cell) capsule (Advanced Probiotic) apixaban 5 mg tablet (Eliquis) 5 mg PO BID #60 tabs 04/29/25 06/16/25 Rx aripiprazole 2 mg tablet 2 mg PO QAM #30 tabs 04/29/25 06/16/25 Rx cyanocobalamin (vitamin B-12) 500 1,000 mcg (2 x 500 mcg) PO DAILY 04/29/25 06/16/25 Rx mcg tablet #30 tabs isosorbide mononitrate 30 mg 30 mg PO DAILY #30 tabs 04/29/25 06/16/25 Rx tablet,extended release 24 hr levothyroxine 175 mcg tablet 175 mcg PO DAILYBB #30 tabs 04/29/25 06/16/25 Rx lisinopril 5 mg tablet 5 mg PO QAM #30 tabs 04/29/25 06/16/25 Rx metformin 500 mg tablet,extended 500 mg PO DIRECTED #30 tabs 04/29/25 06/16/25 Rx release 24 hr metoprolol succinate 25 mg 25 mg PO DAILY #30 tabs 04/29/25 06/16/25 Rx tablet,extended release 24 hr pantoprazole 40 mg tablet,delayed 40 mg PO QAM #30 tabs 04/29/25 06/16/25 Rx release rosuvastatin 10 mg tablet 10 mg PO QAM #30 tabs 04/29/25 06/16/25 Rx sertraline 50 mg tablet 50 mg PO QAM #30 tabs 04/29/25 06/16/25 Rx Patient History Medical History Bilateral knee pain Hypertension Diabetes Social History Smoking Status: Never smoker Hx Alcohol Use: No Hx Substance Use: No Preferred Language: Palauan Communication Ability: Effective 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 Beliefs That Will Affect Care: None Current Living Situation: Alone Current Living Situation Comment: home alone Feels Safe at Home: Yes Gender Identity: Male Assistive Devices: Cane and Walker Review of Systems Review of Systems: All systems reviewed & are unremarkable except as noted in HPI & below Physical Exam Constitutional: WD/WN, vitals as above + obese Eyes: PERRL, conjunctivae normal, anicteric sclerae ENMT: external ear and nose normal, oropharynx normal Respiratory: normal respiratory effort, lungs clear to auscultation Cardiovascular: RRR, no murmur, no edema Gastrointestinal (Abdomen): normal bowel sounds, soft, nontender, no hepatosplenomegaly Psychiatric: Orientation: alert and oriented x 3 Affect: + depressed affect and mood congruent with affect Suicidal Thoughts: denies suicidal plan Homicidal Thoughts: denies homicidal thoughts Insight: + limited insight Pt verbalized passive SI, "just let me " and "I feel like I should ". Results & Data Vital Signs (Past 12 Hours) Vital Signs Temp Pulse Resp BP BP Pulse Ox O2 Del Method 06/17/25 11:11 36.7 C 89 19 102/70 97 Room Air 06/17/25 10:52 Nasal Cannula 06/17/25 07:19 36.7 C 91 H 20 92/70 L 92/65 L 96 Nasal Cannula 06/17/25 07:03 96/68 L 06/17/25 06:30 95 Nasal Cannula 06/17/25 03:01 36.8 C 97 H 18 103/67 97 Room Air 06/16/25 23:56 Room Air O2 Flow Rate 06/17/25 11:11 2 06/17/25 10:52 2 06/17/25 07:19 2 06/17/25 07:03 06/17/25 06:30 2 06/17/25 03:01 06/16/25 23:56 Laboratory Results Abnormal lab results 06/16/25 06/16/25 06/16/25 Range/Units 17:19 17:20 19:20 WBC 18.58 H (4.8-10.8) K/ul Hgb 13.4 L (14.0-18.0) g/dl Hct 41.1 L (42.0-52.0) % MCV 75.6 L (80.0-100.0) fL MCH 24.6 L (25.0-34.0) pg RDW Coeff of Oziel 15.7 H (11.5-14.5) % Neut # (Auto) 17.29 H (1.40-6.50) K/uL Lymph # (Auto) 0.38 L (1.20-3.40) K/uL [place] # (Auto) 0.73 H (0.11-0.59) K/uL PT 14.5 H (9.0-12.0) Seconds INR 1.4 H (0.9-1.1) Heparin Anti-Xa, Unfract (0.3-0.7) IU/ml VBG pCO2 (38-50) mmHg Sodium 125 L (136-145) mmol/L Chloride 93 L (98-107) mmol/L Carbon Dioxide 19 L (21-32) mmol/L Anion Gap 13 H (3-11) Glucose 295 H (70-99(Fasting)) mg/dl POC Glucose (70-99) mg/dl Hemoglobin A1c (4.5-5.6) % Osmolality 271 L (280-300) mOsm/kg Lactate 2.7 H* (0.4-2.0) mmol/L Total Bilirubin 2.4 H (0.2-1.0) mg/dl AST 11 L (13-39) U/L B-Natriuretic Peptide 968 H (0-100) pg/ml Albumin 3.3 L (3.4-5.0) gm/dl Procalcitonin 0.57 H (0-0.5) ng/ml TSH 18.091 H (0.300-4.500) uIu/ml Free T4 0.59 L (0.61-1.60) ng/dl 06/16/25 06/16/25 06/17/25 Range/Units 22:32 22:52 05:28 WBC 19.89 H (4.8-10.8) K/ul Hgb 11.9 L (14.0-18.0) g/dl Hct 35.5 L (42.0-52.0) % MCV 75.1 L (80.0-100.0) fL MCH (25.0-34.0) pg RDW Coeff of Oziel 15.3 H (11.5-14.5) % Neut # (Auto) 18.25 H (1.40-6.50) K/uL Lymph # (Auto) 0.44 L (1.20-3.40) K/uL [place] # (Auto) 0.99 H (0.11-0.59) K/uL PT (9.0-12.0) Seconds INR (0.9-1.1) Heparin Anti-Xa, Unfract 0.17 L (0.3-0.7) IU/ml VBG pCO2 37 L (38-50) mmHg Sodium 125 L 126 L (136-145) mmol/L Chloride 94 L (98-107) mmol/L Carbon Dioxide (21-32) mmol/L Anion Gap (3-11) Glucose 172 H (70-99(Fasting)) mg/dl POC Glucose 287 H (70-99) mg/dl Hemoglobin A1c 9.4 H (4.5-5.6) % Osmolality (280-300) mOsm/kg Lactate 2.3 H* 3.3 H* (0.4-2.0) mmol/L Total Bilirubin (0.2-1.0) mg/dl AST (13-39) U/L B-Natriuretic Peptide (0-100) pg/ml Albumin (3.4-5.0) gm/dl Procalcitonin (0-0.5) ng/ml TSH (0.300-4.500) uIu/ml Free T4 (0.61-1.60) ng/dl 06/17/25 06/17/25 06/17/25 Range/Units 07:52 10:21 10:28 WBC (4.8-10.8) K/ul Hgb (14.0-18.0) g/dl Hct (42.0-52.0) % MCV (80.0-100.0) fL MCH (25.0-34.0) pg RDW Coeff of Oziel (11.5-14.5) % Neut # (Auto) (1.40-6.50) K/uL Lymph # (Auto) (1.20-3.40) K/uL [place] # (Auto) (0.11-0.59) K/uL PT (9.0-12.0) Seconds INR (0.9-1.1) Heparin Anti-Xa, Unfract (0.3-0.7) IU/ml VBG pCO2 (38-50) mmHg Sodium 124 L (136-145) mmol/L Chloride (98-107) mmol/L Carbon Dioxide (21-32) mmol/L Anion Gap (3-11) Glucose (70-99(Fasting)) mg/dl POC Glucose 181 H (70-99) mg/dl Hemoglobin A1c (4.5-5.6) % Osmolality (280-300) mOsm/kg Lactate 2.1 H* (0.4-2.0) mmol/L Total Bilirubin (0.2-1.0) mg/dl AST (13-39) U/L B-Natriuretic Peptide (0-100) pg/ml Albumin (3.4-5.0) gm/dl Procalcitonin (0-0.5) ng/ml TSH (0.300-4.500) uIu/ml Free T4 (0.61-1.60) ng/dl 06/17/25 Range/Units 11:54 WBC (4.8-10.8) K/ul Hgb (14.0-18.0) g/dl Hct (42.0-52.0) % MCV (80.0-100.0) fL MCH (25.0-34.0) pg RDW Coeff of Oziel (11.5-14.5) % Neut # (Auto) (1.40-6.50) K/uL Lymph # (Auto) (1.20-3.40) K/uL [place] # (Auto) (0.11-0.59) K/uL PT (9.0-12.0) Seconds INR (0.9-1.1) Heparin Anti-Xa, Unfract (0.3-0.7) IU/ml VBG pCO2 (38-50) mmHg Sodium (136-145) mmol/L Chloride (98-107) mmol/L Carbon Dioxide (21-32) mmol/L Anion Gap (3-11) Glucose (70-99(Fasting)) mg/dl POC Glucose 126 H (70-99) mg/dl Hemoglobin A1c (4.5-5.6) % Osmolality (280-300) mOsm/kg Lactate (0.4-2.0) mmol/L Total Bilirubin (0.2-1.0) mg/dl AST (13-39) U/L B-Natriuretic Peptide (0-100) pg/ml Albumin (3.4-5.0) gm/dl Procalcitonin (0-0.5) ng/ml TSH (0.300-4.500) uIu/ml Free T4 (0.61-1.60) ng/dl Diagnostic Findings Abdomen/Pelvis CT 06/16/25 18:07 EXAMINATION: CT of the abdomen and pelvis performed after the administration of IV contrast TECHNIQUE: Helical CT images from the lung bases through the symphysis pubis were obtained with contrast. Coronal and sagittal reformatted images were generated at a workstation for further assessment. Dose reduction techniques were achieved by using automatic exposure control and/or adjustment of mA and/or kV according to patient size and/or use of iterative reconstruction technique. COMPARISON: None HISTORY: Abdominal pain FINDINGS: Lower chest: The heart is enlarged. Dilated left ventricular cavity. An area of low attenuating density at the left ventricular apex is seen, measuring 19 mm in diameter most consistent with LV thrombus. There are small pleural effusions bilaterally. Prominent areas of consolidative opacity throughout both lung base bilateral segmental and subsegmental pulmonary emboli. Liver: No suspicious liver lesions. Portal veins appear patent. Gallbladder: No gallstones. No evidence of acute cholecystitis. The common bile duct stent is in place. Tiny focus of air in the gallbladder related to the stent. Spleen: Normal size. Focal wedge-shaped area of hypoenhancement is seen near the superior pole. Pancreas: No suspicious pancreatic lesions. The pancreatic duct is not dilated. Adrenal glands: No adrenal nodules. Kidneys: No hydronephrosis or obstructing renal stones. Bladder / Pelvic organs: Unremarkable. Bowel: No bowel obstruction. No abnormal bowel wall thickening. The appendix is unremarkable. Lymph nodes: No retroperitoneal, mesenteric, or pelvic lymphadenopathy. Peritoneum / Retroperitoneum: No free fluid or air within the abdomen. Vessels: No infrarenal aortic aneurysm. Bones and soft tissues: No suspicious lesion in the bones. IMPRESSION: Bilateral pulmonary emboli are partially seen. There are prominent areas of consolidative opacity throughout the lung bases, suspicious for infarction in the setting of pulmonary emboli, versus possibly infection. Cardiomegaly with dilated left ventricular cavity, with an area of low density material at the LV apex, consistent with thrombus. A wedge-shaped area of hypoenhancement at the superior spleen is consistent with splenic infarct. Electronically signed by Martinez Dugan 06-16-2025 8:02 PM Venous Doppler Study 06/16/25 21:22 CR Exam(s): US VENOUS BILATERAL LOWER EXTREMITIES EXAM: US Duplex Bilateral Lower Extremities Veins CLINICAL HISTORY: Leg swelling. TECHNIQUE: Real-time duplex ultrasound scan of the bilateral lower extremity veins integrating B-mode two-dimensional vascular structure, Doppler spectral analysis, color flow Doppler imaging and compression. COMPARISON: No relevant prior studies available. FINDINGS: Right deep veins: Unremarkable. No Deep vein thrombosis in the right common femoral, femoral, proximal deep femoral or popliteal veins. The veins demonstrate normal color flow, are normally compressible, with normal phasic flow and/or augmentation response. Right superficial veins: Unremarkable. No thrombus in the visualized right great saphenous vein. Left deep veins: Nonocclusive deep venous thrombosis of the left common femoral vein. The left superficial femoral vein, popliteal vein and veins calf are patent. Left superficial veins: There is thrombophlebitis of the left greater saphenous vein. Soft tissues: Nonspecific subcutaneous edema bilaterally. No popliteal cyst. IMPRESSION: 1. Nonocclusive deep venous thrombosis of the left common femoral vein. 2. There is thrombophlebitis of the left greater saphenous vein. 3. Nonspecific subcutaneous edema bilaterally. 4. No deep vein thrombosis of the right lower extremity. Communications: Verify Receipt Electronically signed by: Brenda Carolina MD 06/17/25 05:12 AM Chest X-Ray 06/17/25 06:33 EXAM: XR chest 1V portable CLINICAL HISTORY: sob TECHNIQUE: Radiograph of chest was acquired. 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 Inhomogeneous opacities noted involving bilateral lower zones- possibility of congestive changes/pneumonitis. Rest of both lungs are clear. The cardiomediastinal silhouette is within normal limits. No acute osseous abnormality. IMPRESSION: Blunting of bilateral costophrenic angle - suggestive of pleural effusion.- slightly increased Inhomogeneous opacities noted involving bilateral lower zones- possibility of congestive changes/pneumonitis.- increased Electronically signed by Louie Quevedo 06-17-2025 07:47 AM Medications Administered Current Inpatient Medications Acetaminophen (Acetaminophen 500 Mg Tab) 500 mg PO Q6H PRN PRN Reason: fever/pain Stop: 07/16/25 21:23 Aripiprazole (Aripiprazole 2 Mg Tab) 2 mg PO QAM [facility] Stop: 07/17/25 08:59 Last Admin: 06/17/25 08:52 Dose: 2 mg Aspirin (Aspirin 81 Mg Ectab) 81 mg PO [facility] Stop: 07/17/25 08:59 Last Admin: 06/17/25 08:53 Dose: 81 mg Azithromycin (Azithromycin 250 Mg Tab) 250 mg PO [facility] Stop: 06/22/25 08:59 Benzonatate (Benzonatate 100 Mg Capsule) 100 mg PO TID PRN PRN Reason: Cough Stop: 07/17/25 02:55 Last Admin: 06/17/25 03:08 Dose: 100 mg Cyanocobalamin (Cyanocobalamin (B-12) 500 Mcg Tablet) 1,000 mcg PO DAILY [facility] Stop: 07/17/25 08:59 Last Admin: 06/17/25 08:53 Dose: 1,000 mcg Dextrose (Dextrose 50% 50 Ml Syringe) 25 - 50 ml IV UD PRN; Protocol PRN Reason: Hypoglycemia Protocol Stop: 07/16/25 22:27 Glucagon (Glucagon For Inj 1 Mg Vial) 1 mg SQ UD PRN; Protocol PRN Reason: Hypoglycemia Protocol Stop: 07/16/25 22:27 Glucose (Glucose 40% Gel 15 Gm Tube) 15 - 30 gm PO UD PRN; Protocol PRN Reason: Hypoglycemia Protocol Stop: 07/16/25 22:27 Glucose (Glucose 10 Tab/Tube) 4 - 8 tab PO UD PRN; Protocol PRN Reason: Hypoglycemia Protocol Stop: 07/16/25 22:27 Heparin Sodium/Dextrose (Heparin 28633 Unit/500 Ml D5w) 25,000 units in 500 mls @ 32 mls/hr IV .[id number] [facility]; Protocol Stop: 07/16/25 20:29 Last Titration: 06/17/25 06:59 Dose: 1,600 units/hr, 32 mls/hr Ertapenem (Invanz 1000mg) 1,000 mg in 10 mls @ 2 mls/min IV Q24H [facility] Stop: 06/22/25 07:59 Last Admin: 06/17/25 08:55 Dose: 2 mls/min Promethazine HCl (Phenergan) 12.5 mg in 50.5 mls @ 202 mls/hr IV Q6H PRN PRN Reason: Nausea And Vomiting Stop: 07/16/25 21:23 Insulin Aspart (Insulin Aspart Per Unit Charge) 0 units [facility] Stop: 07/16/25 22:27 Last Admin: 06/17/25 12:29 Dose: Not Given Insulin Glargine (Lantus Per Unit Charge) 15 units SQ BID [facility] Stop: 07/16/25 21:29 Last Admin: 06/17/25 08:32 Dose: 15 units Lactobacillus Acidophilus (Advanced Probiotic 625 Mg Capsule) 1,250 mg PO DAILY [facility] Stop: 07/17/25 08:59 Last Admin: 06/17/25 08:52 Dose: 1,250 mg Levothyroxine Sodium (Levothyroxine Sodium 175 Mcg Tablet) 175 mcg PO DAILYBB [facility] Stop: 07/17/25 06:29 Last Admin: 06/17/25 05:30 Dose: 175 mcg Metoprolol Succinate (Metoprolol Succ 25mg Ext Rel Tab) 25 mg PO DAILY [facility] Stop: 07/17/25 08:59 Last Admin: 06/17/25 09:08 Dose: Not Given Miconazole Nitrate (Miconazole Nitrate Powder 85 Gm) 1 appln EXT BID [facility] Stop: 07/17/25 02:59 Last Admin: 06/17/25 03:08 Dose: 1 appln Miscellaneous (Carbohydrates For Hypoglycemia ) 15 - 30 gm PO UD PRN PRN Reason: Hypoglycemia Protocol Stop: 07/16/25 22:27 Oxycodone HCl (Oxycodone Hcl Ir 5 Mg Tab (Immediate Release)) 5 mg PO Q4H PRN PRN Reason: Pain Stop: 06/30/25 21:23 Pantoprazole Sodium (Pantoprazole 40 Mg Tab) 40 mg PO QAM [facility] Stop: 07/17/25 08:59 Last Admin: 06/17/25 08:52 Dose: 40 mg Sertraline HCl (Sertraline Hcl 50 Mg Tablet) 50 mg PO QAM [facility] Stop: 07/17/25 08:59 Last Admin: 06/17/25 08:53 Dose: 50 mg Tamsulosin HCl (Tamsulosin Hcl 0.4 Mg Cap) 0.4 mg PO DAILY [facility] Stop: 07/17/25 08:59 Last Admin: 06/17/25 08:53 Dose: 0.4 mg PG Care Time/CCT Total # of Minutes Spent Total Time Spent with Patient: Total time spent is greater than 50% in coordination of care (as documented) at patient's floor/unit and/or counseling patient: Advanced Care Planning 59344 Advanced Care Planning 30 [place] [address] IN/OBS CONSULT LVL 3,45M Patient Type New History Problem Focused Exam Problem Focused Medical Decision Making Low Complexity Diagnoses Palliative care by specialist Z51.5 Counseling regarding goals of care Z71.89 Additional Codes Advanced Care Planning - 36815 Advanced Care Planning 30 Min: 65776 Advanced Care Planning 30 Min ([id number])
--- NOTE | 2025-06-17 13:01 | Electrocardiogram Report ---
Test Reason : Blood Pressure : */* mmHG Vent. Rate : 110 BPM Atrial Rate : 110 BPM P-R Int : 238 ms QRS Dur : 88 ms QT Int : 298 ms P-R-T Axes : 61 61 107 degrees QTcB Int : 403 ms Sinus tachycardia with 1st degree A-V block Low voltage QRS Poor R wave progression, consider anterior NM vs. lead placement vs. LVH Abnormal ECG When compared with ECG of 25-Apr-2025 05:59, Sinus rhythm has replaced Ectopic atrial rhythm Vent. rate has increased by 41 bpm Minimal criteria for Anterior infarct are now Present Nonspecific T wave abnormality no longer evident in Anterior leads Confirmed by Martinez Mcmahan ([id number]) on 06/17/2025 12:59:34 PM Referred By: REFERRED SELF Confirmed By: Martinez Mcmahan
--- NOTE | 2025-06-17 13:24 | Hospitalist Progress Note ---
Date of Service June 17, 2025 Assessment & Plan (1) SOB (shortness of breath): Plan: Mr. 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 Discussion had with brother this am who reports patient has been trying to participate with PT, but gets overwhelmed with lack of progress and multiple medications. Patient reports passive SI, but seems to seek help. When asked about his true feelings with hospice, he understands its for end of life treatment, but he also reports wanting to trial things again to help him "get better" Seems conflicted by depression with resultant medication noncompliance Plan for psych consult and cards to help optimize Issues with medication compliance are long standing #Acute hypoxic resp failure, multifactorial #Severe sepsis 2/2 bacterial pneumonia #History of silent aspiration biofire negative CT revealed prominent areas of opacities in lungs Risk for pseudomonas given DM hx and comordbities Change ertapenem to cefepime Continue Azithromycin sputum culture ordered incentive spirometry and flutter valve ordered aspiration precautions Speech: patient already completed VFSS,aspiration with thin and thickened -Continue mouth care and encourage follow recommendations wean o2 as able Lactate downtrending, concern some elevation related to heart faliure exacerbation given notable BLE edema #Bilateral pulmonary emboli #apical cardiac thrombus #DVT in LLE #Splenic infarct history of known cardiac thrombus iso HFrEF, recent noncompliance with eliquis DVT with thrombophlebitis and left comon femoral vein DVT multiple pulm emboli noted ECHO ordered Heparin drip for 48 hours, transition back to Eliquis with DVT loading dose #acute on chronic heart failure with reduced EF #Ischemic cardiomyopathy, multivessel CAD #valvular heart disease (mild MR/TR) feel patient's volume status is challenging given heart failure and sepsis suspect exacerbation given noncompliance with meds and BNP at 968, likely contributing to SOB Resume Metoprolol Hold lisinopril and imdur given hypotension at this time iso sepsis, resume as able continue statin and ASA not on routine diuertic, but appears quite overloaded based on extremities Cardiology consult for additional recommendations given tenuous hemodynamics #hypoosmolar hyponatremia secondary to illness, ?volume Patient with hfref and seemingly overloaded based up on BLE and BNP, however, noted to be in sepsis upon arrival BMP at 126 now 124 on repeat, suspect more related to either siadh v volume overload iso med noncompliance Urine osmo ordered TSH also elevated likely contributing urine electrolytes ordered If downtrending will consider nephrology FR 2L for now #MDD #Anxiety palliative consulted on admission 11/14 request for hospice discussed further with patient and brother, seeming passive SI however does endorse desire to improve would like to encourage patient and involve psych -made clear to brother that patient doesn't have much leeway for further noncompliance until considering hospice may be the most appropriate given severity of comorbidities, but given age and desire from patient for some options, will continue with psych consult #hypertension relative hypotension iso acute illness hold lisinopril and imdur #hyperlipidemia continue statin #CHARLEEN CPAP intolerance consider overnight pulse ox when pneumonia improves for noctural oxygen prior to d/c #prior cva continue statin, asa no focal deficits on exam #DM2 insulin requiring, patient hyperglycemic secondary to medication noncompliance, well-controlled as recent hemoglobin A1c of 6.8 last January 2025. 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 IV heparin DNR/DNI Patient brother requesting updates providers. Mr. Jose Corbin, contact #[phone]. Admission and Anticipated Discharge Date Admission Date: June 16, 2025 Subjective admitted overnight reports feeling down and hopeless, states she feels bad and does want to feel better. He understands the meaning of hospice but would be interested in trialing resources to help with meds at home and stabilizing med situation prior to anything else does endorse passive SI marked by wishing he would just be "gone" or that he "wouldnt wake up", denies any active plan to harm self or others Endorses some cough and no clear improvement since he came in at this time Physical Exam Constitutional: flat affect, disinterested, hard to keep engaged in conversation Respiratory: diminshed in bases, bilateral rhonchi Cardiovascular: RRR Skin: bilateral pitting edema of lower extremities 1-2+ Results & Data Results & Data Vital Signs (Past 12 Hours) Vital Signs Temp Pulse Resp BP BP Pulse Ox O2 Del Method 06/17/25 11:11 36.7 C 89 19 102/70 97 Room Air 06/17/25 10:52 Nasal Cannula 06/17/25 07:19 36.7 C 91 H 20 92/70 L 92/65 L 96 Nasal Cannula 06/17/25 07:03 96/68 L 06/17/25 06:30 95 Nasal Cannula 06/17/25 03:01 36.8 C 97 H 18 103/67 97 Room Air O2 Flow Rate 06/17/25 11:11 2 06/17/25 10:52 2 06/17/25 07:19 2 06/17/25 07:03 06/17/25 06:30 2 06/17/25 03:01 Laboratory Results Short CBC 06/16/25 06/17/25 Range/Units 17:19 05:28 WBC 18.58 H 19.89 H (4.8-10.8) K/ul Hgb 13.4 L 11.9 L (14.0-18.0) g/dl Hct 41.1 L 35.5 L (42.0-52.0) % Plt Count 190 171 (130-400) K/uL BMP 06/16/25 06/16/25 06/17/25 17:19 22:52 05:28 Sodium 125 L 125 L 126 L Potassium 4.4 3.9 Chloride 93 L 94 L Carbon Dioxide 19 L 22 BUN 15 17 Creatinine 1.11 1.25 Glucose 295 H 172 H Calcium 9.0 8.9 06/17/25 10:21 Sodium 124 L Potassium Chloride Carbon Dioxide BUN Creatinine Glucose Calcium Liver Function 06/16/25 Range/Units 17:19 Total Bilirubin 2.4 H (0.2-1.0) mg/dl AST 11 L (13-39) U/L ALT 8 (7-52) U/L Alkaline Phosphatase 88 (34-104) U/L Albumin 3.3 L (3.4-5.0) gm/dl Medications Administered Home Medications Medication Instructions Recorded Confirmed Last Taken nitroglycerin 0.4 mg sublingual 0.4 mg sublingual DIRECTED PRN 01/05/25 0902/04 Unknown tablet (Nitrostat) Chest Pain acetaminophen 650 mg 650 mg PO Q8H PRN Pain 04/24/25 06/16/25 Unknown tablet,extended release aspirin 81 mg tablet,delayed 81 mg PO QAM 04/24/25 06/16/25 Unknown release clotrimazole 1 % topical cream 1 applic topical TID PRN AFFECTED 04/24/25 06/16/25 Unknown AREAS insulin glargine 100 unit/mL (3 40 unit subcut HS 04/24/25 06/16/25 Unknown mL) subcutaneous pen (Lantus Solostar U-100 Insulin) nystatin 100,000 unit/gram topical 1 applic topical TID PRN APPLY TO 04/24/25 06/16/25 Unknown powder SCROTUM NEEDED tamsulosin 0.4 mg capsule (Flomax) 0.4 mg PO DAILY 04/24/25 06/16/25 Unknown L.acidop,casei,lactis,rham-B.lact,odessa 1 cap PO DAILY #7 caps 04/29/25 06/16/25 Unknown 625 mg (10 billion cell) capsule (Advanced Probiotic) apixaban 5 mg tablet (Eliquis) 5 mg PO BID #60 tabs 04/29/25 06/16/25 Unknown aripiprazole 2 mg tablet 2 mg PO QAM #30 tabs 04/29/25 06/16/25 Unknown cyanocobalamin (vitamin B-12) 500 1,000 mcg (2 x 500 mcg) PO DAILY 04/29/25 06/16/25 Unknown mcg tablet #30 tabs isosorbide mononitrate 30 mg 30 mg PO DAILY #30 tabs 04/29/25 06/16/25 Unknown tablet,extended release 24 hr levothyroxine 175 mcg tablet 175 mcg PO DAILYBB #30 tabs 04/29/25 06/16/25 01/05/25 lisinopril 5 mg tablet 5 mg PO QAM #30 tabs 04/29/25 06/16/25 Unknown metformin 500 mg tablet,extended 500 mg PO DIRECTED #30 tabs 04/29/25 06/16/25 Unknown release 24 hr metoprolol succinate 25 mg 25 mg PO DAILY #30 tabs 04/29/25 06/16/25 Unknown tablet,extended release 24 hr pantoprazole 40 mg tablet,delayed 40 mg PO QAM #30 tabs 04/29/25 06/16/25 Unknown release rosuvastatin 10 mg tablet 10 mg PO QAM #30 tabs 04/29/25 06/16/25 Unknown sertraline 50 mg tablet 50 mg PO QAM #30 tabs 04/29/25 06/16/25 Unknown Active Medications Generic Name Dose Route Start Last Admin Trade Name Lissette PRN Reason Stop Dose Admin Aripiprazole 2 mg 06/17/25 09:00 06/17/25 08:52 Aripiprazole 2 Mg Tab PO 07/17/25 08:59 2 mg QAM [facility] Administration Aspirin 81 mg 06/17/25 09:00 06/17/25 08:53 Aspirin 81 Mg Ectab PO 07/17/25 08:59 81 mg QAM [facility] Administration Benzonatate 100 mg 06/17/25 02:56 06/17/25 03:08 Benzonatate 100 Mg Capsule PO 07/17/25 02:55 100 mg TID PRN Administration Cough Cyanocobalamin 1,000 mcg 06/17/25 09:00 06/17/25 08:53 Cyanocobalamin (B-12) 500 Mcg Tablet PO 07/17/25 08:59 1,000 mcg DAILY [facility] Administration Heparin Sodium/Dextrose 25,000 units in 500 mls @ 32 mls/hr 06/16/25 20:30 06/17/25 06:59 Heparin 66439 Unit/500 Ml D5w IV 07/16/25 20:29 1,600 units/hr .[id number] [facility] 32 mls/hr Titration Protocol 1,600 UNITS/HR Insulin Aspart 0 units 06/16/25 22:28 06/17/25 12:29 Insulin Aspart Per Unit Charge SC 07/16/25 22:27 Not Given ACHS [facility] Insulin Glargine 15 units 06/16/25 21:30 06/17/25 08:32 Lantus Per Unit Charge SQ 07/16/25 21:29 15 units BID [facility] Administration Lactobacillus Acidophilus 1,250 mg 06/17/25 09:00 06/17/25 08:52 Advanced Probiotic 625 Mg Capsule PO 07/17/25 08:59 1,250 mg DAILY [facility] Administration Levothyroxine Sodium 175 mcg 06/17/25 06:30 06/17/25 05:30 Levothyroxine Sodium 175 Mcg Tablet PO 07/17/25 06:29 175 mcg DAILYBB [facility] Administration Metoprolol Succinate 25 mg 06/17/25 09:00 06/17/25 09:08 Metoprolol Succ 25mg Ext Rel Tab PO 07/17/25 08:59 Not Given DAILY [facility] Miconazole Nitrate 1 appln 06/17/25 03:00 06/17/25 03:08 Miconazole Nitrate Powder 85 Gm EXT 07/17/25 02:59 1 appln BID [facility] Administration Pantoprazole Sodium 40 mg 06/17/25 09:00 06/17/25 08:52 Pantoprazole 40 Mg Tab PO 07/17/25 08:59 40 mg QAM [facility] Administration Sertraline HCl 50 mg 06/17/25 09:00 06/17/25 08:53 Sertraline Hcl 50 Mg Tablet PO 07/17/25 08:59 50 mg QAM [facility] Administration Tamsulosin HCl 0.4 mg 06/17/25 09:00 06/17/25 08:53 Tamsulosin Hcl 0.4 Mg Cap PO 07/17/25 08:59 0.4 mg DAILY [facility] Administration
[2025-06-17 13:44] LABS: ANTI-Xa, UFH(UnfractionatedHep 0.18 IU/ml (0.3-0.7)
[2025-06-17] MEDS: CEFEPIME 2000MG 2,000 MG/20 ML SYR IV SCH (14:13)
[2025-06-17] MEDS: IPRATROPIUM BROMIDE NEB SOLN 0.02% 0.5MG/2.5ML VIAL INH STA (14:23)
[2025-06-17] MEDS: LEVALBUTEROL 1.25 MG/3 ML NEB NEB STA (14:23)
--- NOTE | 2025-06-17 14:37 | Cardiology Consultation ---
Date of Consultation June 17, 2025 Assessment & Plan (1) Heart failure with reduced ejection fraction (HFrEF): (2) Ischemic cardiomyopathy: (3) Pulmonary embolism, bilateral: (4) LV (left ventricular) mural thrombus: (5) Hyponatremia: (6) Nonadherence to medication: (7) CAD (coronary artery disease): Plan 60-year-old male presenting to the emergency department with shortness of breath. Symptoms secondary to pulmonary embolism, possible aspiration, acute heart failure with reduced ejection fraction. Presentation/symptoms precipitated by noncompliance with all cardiovascular medications over the past 2 months. Hyponatremia noted on admission which I suspect is related to hypervolemia and possible SIADH in the setting of acute pulmonary embolism (possible pulmonary infarct) and possible aspiration pneumonia. Splenic infarct due to noncompliance with oral anticoagulation and cardioembolism in the setting of known left ventricular thrombus. History of severe nonoperable CAD and ischemic cardiomyopathy. Recommendations: * IV anticoagulation with transition back to Eliquis (DVT loading dose) * Cautious diuresis Lasix 20 mg IV x 1 now * Monitor fluid balance, daily weight, GFR, and electrolytes. * Hold lisinopril and Imdur * 2D transthoracic echocardiogram * Aspiration precautions * Antibiotics as per internal medicine. * Psychiatry and palliative medicine consults pending Markell Mae DO [facility]ED WITH [facility] History of Present Illness Reason for Consultation: Acute on chronic heart failure Requesting Physician: Dr. Isadora Rivera Attending Physician: Isadora Rivera MD History of Present Illness 52-year-old male presents to the emergency department with leg weakness, shortness of breath, and vomiting. Per ER notes, patient reports "cannot breathe". He did not complain of respiratory issues to me although he reported having no strength and difficulty ambulating. Admits to discontinuing all cardiovascular medications within 2 weeks of recent discharge 04/29/2025. During hospitalization 04/2025 he was diagnosed with left ventricular thrombus in setting of known severe ischemic cardiomyopathy and prescribed oral anticoagulation with Eliquis. GDMT restarted during hospitalization including lisinopril and Toprol-XL. He was not discharged on diuretic therapy. Currently, patient offers little history. Denies chest pain or shortness of breath at rest. Telemetry feels sinus rhythm without dysrhythmia. Denies any recent weight gain or orthopnea. Notes bilateral lower extremity edema. CT of the abdomen and pelvis performed on admission demonstrating bilateral pulmonary embolus as well as splenic infarct. Repeat chest x-ray performed this a.m. demonstrating bilateral interstitial opacities suggesting possible pneumonitis or congestion. Venous duplex demonstrates nonocclusive deep venous thrombosis in the left common femoral vein. Allergies Allergy/AdvReac Type Severity Reaction Status Date / Time Penicillins Allergy Severe 1969--ANAPH Verified 04/24/25 17:50 YLAXIS doxycycline Allergy Intermediate HIVES Verified 04/24/25 17:50 Macrolide Antibiotics Allergy Unknown UNKNOWN Verified 06/17/25 06:18 morphine AdvReac Intermediate GI UPSET Verified 04/24/25 17:50 Home Medications Medication Instructions Recorded Confirmed Type nitroglycerin 0.4 mg sublingual 0.4 mg sublingual DIRECTED PRN 01/05/25 06/16/25 History tablet (Nitrostat) Chest Pain acetaminophen 650 mg 650 mg PO Q8H PRN Pain 04/24/25 06/16/25 History tablet,extended release aspirin 81 mg tablet,delayed 81 mg PO QAM 04/24/25 06/16/25 History release clotrimazole 1 % topical cream 1 applic topical TID PRN AFFECTED 04/24/25 06/16/25 History AREAS insulin glargine 100 unit/mL (3 40 unit subcut HS 04/24/25 06/16/25 History mL) subcutaneous pen (Lantus Solostar U-100 Insulin) nystatin 100,000 unit/gram topical 1 applic topical TID PRN APPLY TO 04/24/25 06/16/25 History powder SCROTUM NEEDED tamsulosin 0.4 mg capsule (Flomax) 0.4 mg PO DAILY 04/24/25 06/16/25 History L.acidop,casei,lactis,rham-B.lact,odessa 1 cap PO DAILY #7 caps 04/29/25 06/16/25 Rx 625 mg (10 billion cell) capsule (Advanced Probiotic) apixaban 5 mg tablet (Eliquis) 5 mg PO BID #60 tabs 04/29/25 06/16/25 Rx aripiprazole 2 mg tablet 2 mg PO QAM #30 tabs 04/29/25 06/16/25 Rx cyanocobalamin (vitamin B-12) 500 1,000 mcg (2 x 500 mcg) PO DAILY 04/29/25 06/16/25 Rx mcg tablet #30 tabs isosorbide mononitrate 30 mg 30 mg PO DAILY #30 tabs 04/29/25 06/16/25 Rx tablet,extended release 24 hr levothyroxine 175 mcg tablet 175 mcg PO DAILYBB #30 tabs 04/29/25 06/16/25 Rx lisinopril 5 mg tablet 5 mg PO QAM #30 tabs 04/29/25 06/16/25 Rx metformin 500 mg tablet,extended 500 mg PO DIRECTED #30 tabs 04/29/25 06/16/25 Rx release 24 hr metoprolol succinate 25 mg 25 mg PO DAILY #30 tabs 04/29/25 06/16/25 Rx tablet,extended release 24 hr pantoprazole 40 mg tablet,delayed 40 mg PO QAM #30 tabs 04/29/25 06/16/25 Rx release rosuvastatin 10 mg tablet 10 mg PO QAM #30 tabs 04/29/25 06/16/25 Rx sertraline 50 mg tablet 50 mg PO QAM #30 tabs 04/29/25 06/16/25 Rx Patient History Medical History Bilateral knee pain Hypertension Diabetes Social History Smoking Status: Never smoker Hx Alcohol Use: No Hx Substance Use: No Preferred Language: French Communication Ability: Effective Window Shade Cutter And Mounter Required: No Beliefs That Will Affect Care: None Current Living Situation: Alone Current Living Situation Comment: home alone Other Information That Helps Us Care for You: No Feels Safe at Home: Yes Safety Concerns: Feels Safe At This Time Gender Identity: Male Assistive Devices: Cane and Walker Review of Systems Review of Systems: All systems reviewed & are unremarkable except as noted in Subjective (Patient somewhat uncooperative. Prefers to not answer some questions.) Physical Exam Constitutional: + ill appearing; no acute distress Respiratory: no respiratory distress and no labored breathing Auscultation: + crackles (Bases bilateral); no rhonchi and no wheezes Cardiovascular: Rate/Rhythm: regular rate and regular rhythm Heart Sounds: normal S1 and normal S2; no murmur Vessels: radial pulses present; no JVD (Difficult to assess due to body habitus) Extremities: + edema (Mild bilateral ankle edema.) Gastrointestinal (Abdomen): Inspection/Auscultation: abdomen normal to inspection; abdomen not distended Percussion/Palpation: abdomen soft; abdomen nontender, no guarding and abdomen not rigid Neurologic: moves all extremities; no focal motor deficits Psychiatric: Affect: + depressed affect Results & Data Vital Signs (Past 12 Hours) Vital Signs Temp Pulse Resp BP BP Pulse Ox O2 Del Method 06/17/25 11:11 36.7 C 89 19 102/70 97 Room Air 06/17/25 10:52 Nasal Cannula 06/17/25 07:19 36.7 C 91 H 20 92/70 L 92/65 L 96 Nasal Cannula 06/17/25 07:03 96/68 L 06/17/25 06:30 95 Nasal Cannula 06/17/25 03:01 36.8 C 97 H 18 103/67 97 Room Air O2 Flow Rate 06/17/25 11:11 2 06/17/25 10:52 2 06/17/25 07:19 2 06/17/25 07:03 06/17/25 06:30 2 06/17/25 03:01 Laboratory Results Cardiac Enzymes 06/16/25 Range/Units 17:19 AST 11 L (13-39) U/L Troponin I High Sens 8.1 (0-20) pg/ml B-Natriuretic Peptide 968 H (0-100) pg/ml Coagulation 06/16/25 Range/Units 17:19 PT 14.5 H (9.0-12.0) Seconds B-Natriuretic Peptide 968 H (0-100) pg/ml CBC 06/16/25 06/17/25 Range/Units 17:19 05:28 WBC 18.58 H 19.89 H (4.8-10.8) K/ul RBC 5.44 4.73 (4.70-6.10) M/uL Hgb 13.4 L 11.9 L (14.0-18.0) g/dl Hct 41.1 L 35.5 L (42.0-52.0) % Plt Count 190 171 (130-400) K/uL Neut # (Auto) 17.29 H 18.25 H (1.40-6.50) K/uL Lymph # (Auto) 0.38 L 0.44 L (1.20-3.40) K/uL [place] # (Auto) 0.73 H 0.99 H (0.11-0.59) K/uL Eos # (Auto) 0.00 0.07 (0.00-0.50) K/uL Baso # (Auto) 0.05 0.03 (0.00-0.20) K/uL Comprehensive Metabolic Panel 06/16/25 06/16/25 06/17/25 Range/Units 17:19 22:52 05:28 Sodium 125 L 125 L 126 L (136-145) mmol/L Potassium 4.4 3.9 (3.5-5.1) mmol/L Chloride 93 L 94 L (98-107) mmol/L Carbon Dioxide 19 L 22 (21-32) mmol/L BUN 15 17 (6-23) mg/dl Creatinine 1.11 1.25 (0.6-1.4) mg/dl Glucose 295 H 172 H (70-99(Fasting)) mg/dl Calcium 9.0 8.9 (8.6-10.3) mg/dl AST 11 L (13-39) U/L ALT 8 (7-52) U/L Alkaline Phosphatase 88 (34-104) U/L Total Protein 7.1 (6.0-8.3) gm/dl Albumin 3.3 L (3.4-5.0) gm/dl 06/17/25 Range/Units 10:21 Sodium 124 L (136-145) mmol/L Potassium (3.5-5.1) mmol/L Chloride (98-107) mmol/L Carbon Dioxide (21-32) mmol/L BUN (6-23) mg/dl Creatinine (0.6-1.4) mg/dl Glucose (70-99(Fasting)) mg/dl Calcium (8.6-10.3) mg/dl AST (13-39) U/L ALT (7-52) U/L Alkaline Phosphatase (34-104) U/L Total Protein (6.0-8.3) gm/dl Albumin (3.4-5.0) gm/dl Intake and Output 06/16/25 06/17/25 06/17/25 22:59 06:59 14:59 Intake Total 100 / 1256.1 1156.1 / 1256.1 1255 / 1255 Balance 100 / 1256.1 1156.1 / 1256.1 1255 / 1255 Intake: IV 100 / 1256.1 1156.1 / 1256.1 1255 / 1255 Albumin 25% 25 gm In 100 ml @ 100 / 100 50 mls/hr IV ONE ONE Rx#: [id number] Azithromycin 500 mg In 255 ml @ 255 / 255 127.5 mls/hr IV NOW ONE Rx#: [id number] Ciprofloxacin / D5w 400 mg In 200 / 200 200 ml @ 100 mls/hr IV NOW STA Rx#:[id number] Heparin 60520 Unit/500 ml D5w 226.1 / 226.1 25,000 units In 500 ml @ 1,600 UNITS/HR 32 mls/hr IV .[id number] [facility] Rx#:[id number] Lactated Ringer's 1,000 ml @ 630 / 630 1000 / 1000 100 mls/hr IV .Q10H ONE Rx#: [id number] metroNIDAZOLE 500 mg In 100 ml 100 / 100 @ 100 mls/hr IV NOW STA Rx#: [id number] Other: Other Intake Source sips # Unmeasured Voids 1 Weight 104.2 kg 104.2 kg Weight Measurement Method Built in [facility] Built in [facility] Care Time/CCT Total # of Minutes Spent Total Time Spent with Patient: Total time spent is greater than 50% in coordination of care (as documented) at patient's floor/unit and/or counseling patient: Coding Level of Care Code 59602 IN/OBS CONSULT LVL 4,60M Diagnoses Heart failure with reduced ejection fraction (HFrEF) I50.20 Ischemic cardiomyopathy I25.5 Pulmonary embolism, bilateral I26.99 LV (left ventricular) mural thrombus I51.3 Hyponatremia E87.1 Nonadherence to medication Z91.148 Coronary artery disease of [place] artery of [place] heart with stable angina pectoris I25.118 Associated angina: with stable angina Coronary Disease-Associated Artery/Lesion type: [place] artery [place] vs. transplanted heart: [place] heart (7) CAD (coronary artery disease) Associated angina: with stable angina Coronary Disease-Associated Artery/Lesion type: [place] artery [place] vs. transplanted heart: [place] heart Qualified Code(s): I25.118 - Atherosclerotic heart disease of [place] coronary artery with other forms of angina pectoris
[2025-06-17] MEDS: FUROSEMIDE INJ 20 MG/2 ML VIAL IV ONE (16:09)
[2025-06-17 17:58] LABS: Appearance Urine Clear (Clear); Bacteria Urine Automated None Seen (None Seen); Epithelial Cell Urine Auto 0-2 /hpf (0-2); Glucose Urine UA 1+ (Negative); RBC Urine Automated 0-2 /hpf (0-2); WBC Urine Automated 0-5 /hpf (0-5)
[2025-06-17 21:10] LABS: Anion Gap 8.0 (3-11); Blood Urea Nitrogen 22.0 mg/dl (6-23); Calcium 8.4 mg/dl (8.6-10.3); Carbon Dioxide 22.0 mmol/L (21-32); Chloride 93.0 mmol/L (98-107); Creatinine Clr Calc Pharmacy 75.3 ml/min; Glucose 131.0 mg/dl (70-99(Fasting)); Potassium 3.8 mmol/L (3.5-5.1); Sodium 123.0 mmol/L (136-145)
[2025-06-17 21:21] LABS: ANTI-Xa, UFH(UnfractionatedHep 0.24 IU/ml (0.3-0.7)
[2025-06-17] MEDS: ACETAMINOPHEN 500 MG TAB PO PRN (21:31)
[2025-06-18 03:57] LABS: Hematocrit (blood only) 32.6 % (42.0-52.0); Hemoglobin 10.7 g/dl (14.0-18.0); Mean Corpuscular Hemoglobin 24.4 pg (25.0-34.0); Mean Corpuscular Volume 74.3 fL (80.0-100.0); Platelet Count 151 K/uL (130-400); RDW Standard Deviation 41.1 fL (36.4-46.3); Red Blood Count 4.39 M/uL (4.70-6.10); White Blood Count 16.30 K/ul (4.8-10.8)
[2025-06-18 04:13] LABS: Anion Gap 8.0 (3-11); Blood Urea Nitrogen 23.0 mg/dl (6-23); Calcium 8.2 mg/dl (8.6-10.3); Carbon Dioxide 22.0 mmol/L (21-32); Chloride 93.0 mmol/L (98-107); Creatinine Clr Calc Pharmacy 75.9 ml/min; Glucose 132.0 mg/dl (70-99(Fasting)); Magnesium 1.7 mg/dl (1.7-2.4); Potassium 3.7 mmol/L (3.5-5.1); Sodium 123.0 mmol/L (136-145)
[2025-06-18 04:42] LABS: ANTI-Xa, UFH(UnfractionatedHep 0.21 IU/ml (0.3-0.7)
[2025-06-18] MEDS ORDERED: ISOSORBIDE MONO EXTENDED REL 30 MG TABCR PO SCH (09:00)
[2025-06-18] MEDS: AZITHROMYCIN 250 MG TAB PO SCH (09:22)
--- NOTE | 2025-06-18 11:15 | Hospitalist Progress Note ---
Date of Service June 18, 2025 Assessment & Plan (1) SOB (shortness of breath): Plan: Mr. 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 06/17 Per previous provider - Discussion had with brother this am who reports patient has been trying to participate with PT, but gets overwhelmed with lack of progress and multiple medications. Patient reports passive SI, but seems to seek help. When asked about his true feelings with hospice, he understands its for end of life treatment, but he also reports wanting to trial things again to help him "get better" Seems conflicted by depression with resultant medication noncompliance Plan for psych consult and cards to help optimize Issues with medication compliance are long standing #Acute hypoxic resp failure, multifactorial #Severe sepsis 2/2 bacterial pneumonia #History of silent aspiration biofire negative CT revealed prominent areas of opacities in lungs Risk for pseudomonas given DM hx and comordbities Changed ertapenem to cefepime Continue Azithromycin sputum culture ordered incentive spirometry and flutter valve ordered aspiration precautions Speech: patient already completed VFSS,aspiration with thin and thickened -Continue mouth care and encourage follow recommendations wean o2 as able Lactate downtrending, concern some elevation related to heart faliure exacerbation given notable BLE edema #Bilateral pulmonary emboli #apical cardiac thrombus #DVT in LLE #Splenic infarct history of known cardiac thrombus iso HFrEF, recent noncompliance with eliquis DVT with thrombophlebitis and left common femoral vein DVT multiple pulm emboli noted ECHO ordered Heparin drip for 48 hours, transition back to Eliquis with DVT loading dose #acute on chronic heart failure with reduced EF #Ischemic cardiomyopathy, multivessel CAD #valvular heart disease (mild MR/TR) feel patient's volume status is challenging given heart failure and sepsis suspect exacerbation given noncompliance with meds and BNP at 968, likely contributing to SOB Resume Metoprolol Hold lisinopril and imdur given hypotension at this time iso sepsis, resume as able continue statin and ASA not on routine diuertic, but appears quite overloaded based on extremities Cardiology consulted for additional recommendations given tenuous hemodynamics #hypoosmolar hyponatremia secondary to illness, ?volume Patient with hfref and seemingly overloaded based up on BLE and BNP, however, noted to be in sepsis upon arrival BMP at 126 now 124 on repeat, suspect more related to either siadh v volume over load iso med noncompliance Urine osmo ordered TSH also elevated likely contributing urine electrolytes ordered If downtrending will consider nephrology FR 2L for now #Hypothyoridism elevated TSH likely iso noncompliance resume prior dosing repeat in 4-6 weeks #MDD #Anxiety palliative consulted on admission 11/14 request for hospice discussed further with patient and brother, seeming passive SI however does endorse desire to improve would like to encourage patient and involve psych -made clear to brother that patient doesn't have much leeway for further noncompliance until considering hospice may be the most appropriate given severity of comorbidities, but given age and desire from patient for some options, will continue with psych consult #chronic anemia - hemoglobin downtrending - cont. to closely monitor H&H #hypertension relative hypotension iso acute illness hold lisinopril and imdur #hyperlipidemia continue statin #CHARLEEN CPAP intolerance consider overnight pulse ox when pneumonia improves for noctural oxygen prior to d/c #prior cva continue statin, asa - chronic left sided weakness #DM2 insulin requiring, patient hyperglycemic secondary to medication noncompliance, well-controlled as recent hemoglobin A1c of 6.8 last January 2025. A1C now 9.4% basal bolus insulin for now inclusion paraeducator DVT prophylaxis. IV heparin DNR/DNI Patient brother - Mr. Jose Corbin, contact #[phone]. Admission and Anticipated Discharge Date Admission Date: June 16, 2025 Subjective Pt seen in follow up Hospitalized in April as pt depressed and stopped taking his medication Discussed that pt stopped taking medications but he did want to be seen in hospital, and he feels ok staying in the hospital for treatment Reports cough No chest pain, shortness of breath, no pain in LE extremities Cardiology, psychiatry consulted Pt also seen by palliative med. Review of Systems Review of Systems: All systems reviewed & are unremarkable except as noted in Subjective Physical Exam Physical Exam: GENERAL: obese M, chronically ill-appearing, in NAD SKIN: Pallor, warm HEENT: Alopecia, pale palpebral conjunctivae, no ptosis NECK : Supple CHEST : Decreased breath sounds, occasional expiratory wheezes, no tenderness HEART : Diminished S1-S2, RRR ABDOMEN: soft, obese, some distention, nontender EXTREMITIES : + LE edema, no LE tenderness, moves extremities NEURO/ PSYCH : awake, alert, able to answer simple questions, + flat affect, speech fluent, moves extremities Results & Data Results & Data Vital Signs (Past 12 Hours) Vital Signs Temp Pulse Pulse Resp BP BP Pulse Ox 06/18/25 10:35 100/65 06/18/25 08:22 36.6 C 87 18 93/63 L 91 06/18/25 07:43 06/18/25 07:05 87 06/18/25 02:53 36.3 C L 90 18 131/79 92 O2 Del Method O2 Flow Rate 06/18/25 10:35 06/18/25 08:22 Room Air 06/18/25 07:43 Room Air 06/18/25 07:05 06/18/25 02:53 Nasal Cannula 2 Laboratory Results 06/18/25 06/18/25 06/18/25 Range/Units 10:48 08:21 03:43 WBC 16.30 H (4.8-10.8) K/ul RBC 4.39 L (4.70-6.10) M/uL Hgb 10.7 L (14.0-18.0) g/dl Hct 32.6 L (42.0-52.0) % MCV 74.3 L (80.0-100.0) fL MCH 24.4 L (25.0-34.0) pg MCHC 32.8 (32.0-36.0) g/dL RDW Std Deviation 41.1 (36.4-46.3) fL RDW Coeff of Zoiel 15.6 H (11.5-14.5) % Plt Count 151 (130-400) K/uL MPV 9.8 (9.4-12.4) fL Heparin Anti-Xa, Unfract Pending 0.21 L (0.3-0.7) IU/ml Sodium 123 L (136-145) mmol/L Potassium 3.7 (3.5-5.1) mmol/L Chloride 93 L (98-107) mmol/L Carbon Dioxide 22 (21-32) mmol/L Anion Gap 8 (3-11) BUN 23 (6-23) mg/dl Creatinine 1.20 (0.6-1.4) mg/dl Est Cr Clr Drug Dosing 75.9 ml/min eGFR 70.10 BUN/Creatinine Ratio 19.2 (10-20) Glucose 132 H (70-99(Fasting)) mg/dl POC Glucose 152 H (70-99) mg/dl Calcium 8.2 L (8.6-10.3) mg/dl Phosphorus 3.3 (2.5-4.9) mg/dl Magnesium 1.7 (1.7-2.4) mg/dl Urine Color Urine Appearance (Clear) Urine pH (4.5-7.5) Ur Specific [place] (1.000-1.030) Urine Protein (Negative) Urine Glucose (UA) (Negative) Urine Ketones (Negative) Urine Blood (Negative) Urine Nitrite (Negative) Urine Bilirubin (Negative) Urine Urobilinogen (Negative) Ur Leukocyte Esterase (Negative) Urine WBC (Auto) (0-5) /hpf Urine RBC (Auto) (0-2) /hpf U Hyaline Cast (Auto) (0-2) /lpf U Epithel Cells (Auto) (0-2) /hpf Urine Bacteria (Auto) (None Seen) Hyaline Casts (None Presnt) /lpf Urine Osmolality (500-800) mOsm/kg Ur Random Sodium mmol/L Urine Sodium mmol/L Urine Potassium mmol/L Urine Chloride mmol/L Urine Comment 06/17/25 06/17/25 06/17/25 Range/Units 20:38 19:58 17:20 WBC (4.8-10.8) K/ul RBC (4.70-6.10) M/uL Hgb (14.0-18.0) g/dl Hct (42.0-52.0) % MCV (80.0-100.0) fL MCH (25.0-34.0) pg MCHC (32.0-36.0) g/dL RDW Std Deviation (36.4-46.3) fL RDW Coeff of Oziel (11.5-14.5) % Plt Count (130-400) K/uL MPV (9.4-12.4) fL Heparin Anti-Xa, Unfract 0.24 L (0.3-0.7) IU/ml Sodium 123 L (136-145) mmol/L Potassium 3.8 (3.5-5.1) mmol/L Chloride 93 L (98-107) mmol/L Carbon Dioxide 22 (21-32) mmol/L Anion Gap 8 (3-11) BUN 22 (6-23) mg/dl Creatinine 1.21 (0.6-1.4) mg/dl Est Cr Clr Drug Dosing 75.3 ml/min eGFR 69.40 BUN/Creatinine Ratio 18.2 (10-20) Glucose 131 H (70-99(Fasting)) mg/dl POC Glucose 125 H (70-99) mg/dl Calcium 8.4 L (8.6-10.3) mg/dl Phosphorus (2.5-4.9) mg/dl Magnesium (1.7-2.4) mg/dl Urine Color Dark Yellow Urine Appearance Clear (Clear) Urine pH 5.0 (4.5-7.5) Ur Specific [place] > 1.045 H (1.000-1.030) Urine Protein 2+ H (Negative) Urine Glucose (UA) 1+ H (Negative) Urine Ketones Negative (Negative) Urine Blood Negative (Negative) Urine Nitrite Positive A (Negative) Urine Bilirubin 1+ H (Negative) Urine Urobilinogen Positive H (Negative) Ur Leukocyte Esterase Trace H (Negative) Urine WBC (Auto) 0-5 (0-5) /hpf Urine RBC (Auto) 0-2 (0-2) /hpf U Hyaline Cast (Auto) 11-20 H (0-2) /lpf U Epithel Cells (Auto) 0-2 (0-2) /hpf Urine Bacteria (Auto) None Seen (None Seen) Hyaline Casts Present A (None Presnt) /lpf Urine Osmolality 724 (500-800) mOsm/kg Ur Random Sodium 17 mmol/L Urine Sodium 17 mmol/L Urine Potassium 82.3 mmol/L Urine Chloride 47 mmol/L Urine Comment 06/17/25 06/17/25 06/17/25 Range/Units 16:37 16:12 12:39 WBC (4.8-10.8) K/ul RBC (4.70-6.10) M/uL Hgb (14.0-18.0) g/dl Hct (42.0-52.0) % MCV (80.0-100.0) fL MCH (25.0-34.0) pg MCHC (32.0-36.0) g/dL RDW Std Deviation (36.4-46.3) fL RDW Coeff of Oziel (11.5-14.5) % Plt Count (130-400) K/uL MPV (9.4-12.4) fL Heparin Anti-Xa, Unfract 0.18 L (0.3-0.7) IU/ml Sodium 122 L (136-145) mmol/L Potassium (3.5-5.1) mmol/L Chloride (98-107) mmol/L Carbon Dioxide (21-32) mmol/L Anion Gap (3-11) BUN (6-23) mg/dl Creatinine (0.6-1.4) mg/dl Est Cr Clr Drug Dosing ml/min eGFR BUN/Creatinine Ratio (10-20) Glucose (70-99(Fasting)) mg/dl POC Glucose 144 H (70-99) mg/dl Calcium (8.6-10.3) mg/dl Phosphorus (2.5-4.9) mg/dl Magnesium (1.7-2.4) mg/dl Urine Color Urine Appearance (Clear) Urine pH (4.5-7.5) Ur Specific [place] (1.000-1.030) Urine Protein (Negative) Urine Glucose (UA) (Negative) Urine Ketones (Negative) Urine Blood (Negative) Urine Nitrite (Negative) Urine Bilirubin (Negative) Urine Urobilinogen (Negative) Ur Leukocyte Esterase (Negative) Urine WBC (Auto) (0-5) /hpf Urine RBC (Auto) (0-2) /hpf U Hyaline Cast (Auto) (0-2) /lpf U Epithel Cells (Auto) (0-2) /hpf Urine Bacteria (Auto) (None Seen) Hyaline Casts (None Presnt) /lpf Urine Osmolality (500-800) mOsm/kg Ur Random Sodium mmol/L Urine Sodium mmol/L Urine Potassium mmol/L Urine Chloride mmol/L Urine Comment 06/17/25 Range/Units 11:54 WBC (4.8-10.8) K/ul RBC (4.70-6.10) M/uL Hgb (14.0-18.0) g/dl Hct (42.0-52.0) % MCV (80.0-100.0) fL MCH (25.0-34.0) pg MCHC (32.0-36.0) g/dL RDW Std Deviation (36.4-46.3) fL RDW Coeff of Oziel (11.5-14.5) % Plt Count (130-400) K/uL MPV (9.4-12.4) fL Heparin Anti-Xa, Unfract (0.3-0.7) IU/ml Sodium (136-145) mmol/L Potassium (3.5-5.1) mmol/L Chloride (98-107) mmol/L Carbon Dioxide (21-32) mmol/L Anion Gap (3-11) BUN (6-23) mg/dl Creatinine (0.6-1.4) mg/dl Est Cr Clr Drug Dosing ml/min eGFR BUN/Creatinine Ratio (10-20) Glucose (70-99(Fasting)) mg/dl POC Glucose 126 H (70-99) mg/dl Calcium (8.6-10.3) mg/dl Phosphorus (2.5-4.9) mg/dl Magnesium (1.7-2.4) mg/dl Urine Color Urine Appearance (Clear) Urine pH (4.5-7.5) Ur Specific [place] (1.000-1.030) Urine Protein (Negative) Urine Glucose (UA) (Negative) Urine Ketones (Negative) Urine Blood (Negative) Urine Nitrite (Negative) Urine Bilirubin (Negative) Urine Urobilinogen (Negative) Ur Leukocyte Esterase (Negative) Urine WBC (Auto) (0-5) /hpf Urine RBC (Auto) (0-2) /hpf U Hyaline Cast (Auto) (0-2) /lpf U Epithel Cells (Auto) (0-2) /hpf Urine Bacteria (Auto) (None Seen) Hyaline Casts (None Presnt) /lpf Urine Osmolality (500-800) mOsm/kg Ur Random Sodium mmol/L Urine Sodium mmol/L Urine Potassium mmol/L Urine Chloride mmol/L Urine Comment Medications Administered Current Inpatient Medications Acetaminophen (Acetaminophen 500 Mg Tab) 500 mg PO Q6H PRN PRN Reason: fever/pain Stop: 07/16/25 21:23 Last Admin: 06/17/25 21:31 Dose: 500 mg Aripiprazole (Aripiprazole 2 Mg Tab) 2 mg PO QAM [facility] Stop: 07/17/25 08:59 Last Admin: 06/18/25 09:21 Dose: 2 mg Aspirin (Aspirin 81 Mg Ectab) 81 mg PO [facility] Stop: 07/17/25 08:59 Last Admin: 06/18/25 09:21 Dose: 81 mg Azithromycin (Azithromycin 250 Mg Tab) 250 mg PO [facility] Stop: 06/22/25 08:59 Last Admin: 06/18/25 09:22 Dose: 250 mg Benzonatate (Benzonatate 100 Mg Capsule) 100 mg PO TID PRN PRN Reason: Cough Stop: 07/17/25 02:55 Last Admin: 06/18/25 09:19 Dose: 100 mg Cyanocobalamin (Cyanocobalamin (B-12) 500 Mcg Tablet) 1,000 mcg PO DAILY [facility] Stop: 07/17/25 08:59 Last Admin: 06/18/25 09:21 Dose: 1,000 mcg Dextrose (Dextrose 50% 50 Ml Syringe) 25 - 50 ml IV UD PRN; Protocol PRN Reason: Hypoglycemia Protocol Stop: 07/16/25 22:27 Glucagon (Glucagon For Inj 1 Mg Vial) 1 mg SQ UD PRN; Protocol PRN Reason: Hypoglycemia Protocol Stop: 07/16/25 22:27 Glucose (Glucose 40% Gel 15 Gm Tube) 15 - 30 gm PO UD PRN; Protocol PRN Reason: Hypoglycemia Protocol Stop: 07/16/25 22:27 Glucose (Glucose 10 Tab/Tube) 4 - 8 tab PO UD PRN; Protocol PRN Reason: Hypoglycemia Protocol Stop: 07/16/25 22:27 Heparin Sodium/Dextrose (Heparin 23267 Unit/500 Ml D5w) 25,000 units in 500 mls @ 39 mls/hr IV .[id number] [facility]; Protocol Stop: 07/16/25 20:29 Last Titration: 06/18/25 07:16 Dose: 1,950 units/hr, 39 mls/hr Promethazine HCl (Phenergan) 12.5 mg in 50.5 mls @ 202 mls/hr IV Q6H PRN PRN Reason: Nausea And Vomiting Stop: 07/16/25 21:23 Cefepime HCl (Maxipime 2000mg) 2,000 mg in 20 mls @ 5 mls/min IV Q8H [facility]; Pro tocol Stop: 06/22/25 13:59 Last Admin: 06/18/25 05:09 Dose: 5 mls/min Insulin Aspart (Insulin Aspart Per Unit Charge) 0 units SC ACHS [facility] Stop: 07/16/25 22:27 Last Admin: 06/18/25 09:20 Dose: 1 units Insulin Glargine (Lantus Per Unit Charge) 15 units SQ BID [facility] Stop: 07/16/25 21:29 Last Admin: 06/18/25 09:19 Dose: 15 units Lactobacillus Acidophilus (Advanced Probiotic 625 Mg Capsule) 1,250 mg PO DAILY [facility] Stop: 07/17/25 08:59 Last Admin: 06/18/25 09:20 Dose: 1,250 mg Levothyroxine Sodium (Levothyroxine Sodium 175 Mcg Tablet) 175 mcg PO DAILYBB [facility] Stop: 07/17/25 06:29 Last Admin: 06/18/25 06:03 Dose: 175 mcg Metoprolol Succinate (Metoprolol Succ 25mg Ext Rel Tab) 25 mg PO DAILY [facility] Stop: 07/17/25 08:59 Last Admin: 06/18/25 10:35 Dose: 25 mg Miconazole Nitrate (Miconazole Nitrate Powder 85 Gm) 1 appln EXT BID [facility] Stop: 07/17/25 02:59 Last Admin: 06/18/25 09:21 Dose: 1 appln Miscellaneous (Carbohydrates For Hypoglycemia ) 15 - 30 gm PO UD PRN PRN Reason: Hypoglycemia Protocol Stop: 07/16/25 22:27 Oxycodone HCl (Oxycodone Hcl Ir 5 Mg Tab (Immediate Release)) 5 mg PO Q4H PRN PRN Reason: Pain Stop: 06/30/25 21:23 Pantoprazole Sodium (Pantoprazole 40 Mg Tab) 40 mg PO QAM [facility] Stop: 07/17/25 08:59 Last Admin: 06/18/25 09:21 Dose: 40 mg Sertraline HCl (Sertraline Hcl 50 Mg Tablet) 50 mg PO QAM [facility] Stop: 07/17/25 08:59 Last Admin: 06/18/25 09:21 Dose: 50 mg Tamsulosin HCl (Tamsulosin Hcl 0.4 Mg Cap) 0.4 mg PO DAILY [facility] Stop: 07/17/25 08:59 Last Admin: 06/18/25 09:21 Dose: 0.4 mg
[2025-06-18 11:29] LABS: ANTI-Xa, UFH(UnfractionatedHep 0.20 IU/ml (0.3-0.7)
--- NOTE | 2025-06-18 12:39 | Psychiatric Consultation ---
Date of Consultation June 18, 2025 Impression / Recommendations Impression Ten Corbin is a 59-year-old white unemployed male who lives alone history of CVA, hypothyroidism, B12 deficiency, hyperlipidemia, GERD, insulin dependence who presents with SOB in the setting of medication non adherence. Suspicion of PE, aspiration, acute heart failure. Psychiatry consulted for depression and safety evaluation. Concern for active major depressive episode and contributing towards his ho pelessness and passive suicidal ideations. Primarily environmental factors with loss of support, unemployment, escalating health problems, and financial instability. Currently he denies any suicidal intent and is able to contract for safety. Discussed with him the need to optimize his psychotropic medications to address his depression and he is agreeable. Overall, I spent a total of 80 minutes with this case including review of chart records, nursing report, review of lab work, direct evaluation of the patient at bedside, counseling the patient, discussion of the patient with the hospitalist provider, discussion with the psychiatric liaison during clinical rounds, and documentation in the electronic health record. (1) Depression with suicidal ideation: (2) SOB (shortness of breath): (3) Nonadherence to medication: Plan 06/18/25: Increase Abilify to 5mg daily Increase Sertraline to 100mg daily Start Lorazepam 0.5mg BID PRN for anxiety, insomnia No indication for bedside sitter at this time Psych History Identifying Data Ten Corbin is a 59-year-old white unemployed male who lives alone history of CVA, hypothyroidism, B12 deficiency, hyperlipidemia, GERD, insulin dependence who presents with SOB in the setting of medication non adherence. Suspicion of PE, aspiration, acute heart failure. Psychiatry consulted for depression and safety evaluation. Chief Complaint "Life is not worth living anymore" History of Present Illness Patient c/o passive suicidal ideation and hopelessness. Repots losing his , his job, and at risk of losing his home due to financial problems. passed 5 years ago and denies feeling depressed prior. Denies family psych history. C/o anhedonia, trouble staying asleep, low energy, poor concentration, hopelessness, inc guilt. Has considered taking pills; denies taking steps towards this. Denies current SI intent. Does not want life saving interventions. C/o increased ruminative anxiety. Reviewed psych med history with him. Has had partial trial of SSRI at low dose and low dose abilify. Allergies Allergy/AdvReac Type Severity Reaction Status Date / Time Penicillins Allergy Severe 1969--ANAPH Verified 04/24/25 17:50 YLAXIS doxycycline Allergy Intermediate HIVES Verified 04/24/25 17:50 Macrolide Antibiotics Allergy Unknown UNKNOWN Verified 06/17/25 06:18 morphine AdvReac Intermediate GI UPSET Verified 04/24/25 17:50 Home Medications Medication Instructions Recorded Confirmed Type nitroglycerin 0.4 mg sublingual 0.4 mg sublingual DIRECTED PRN 01/05/25 06/16/25 History tablet (Nitrostat) Chest Pain acetaminophen 650 mg 650 mg PO Q8H PRN Pain 04/24/25 06/16/25 History tablet,extended release aspirin 81 mg tablet,delayed 81 mg PO QAM 04/24/25 06/16/25 History release clotrimazole 1 % topical cream 1 applic topical TID PRN AFFECTED 04/24/25 History AREAS insulin glargine 100 unit/mL (3 40 unit subcut HS 04/24/25 06/16/25 History mL) subcutaneous pen (Lantus Solostar U-100 Insulin) nystatin 100,000 unit/gram topical 1 applic topical TID PRN APPLY TO 04/24/25 06/16/25 History powder SCROTUM NEEDED tamsulosin 0.4 mg capsule (Flomax) 0.4 mg PO DAILY 04/24/25 06/16/25 History L.acidop,casei,lactis,rham-B.lact,odessa 1 cap PO DAILY #7 caps 04/29/25 06/16/25 Rx 625 mg (10 billion cell) capsule (Advanced Probiotic) apixaban 5 mg tablet (Eliquis) 5 mg PO BID #60 tabs 04/29/25 06/16/25 Rx aripiprazole 2 mg tablet 2 mg PO QAM #30 tabs 04/29/25 06/16/25 Rx cyanocobalamin (vitamin B-12) 500 1,000 mcg (2 x 500 mcg) PO DAILY 04/29/25 06/16/25 Rx mcg tablet #30 tabs isosorbide mononitrate 30 mg 30 mg PO DAILY #30 tabs 04/29/25 06/16/25 Rx tablet,extended release 24 hr levothyroxine 175 mcg tablet 175 mcg PO DAILYBB #30 tabs 04/29/25 06/16/25 Rx lisinopril 5 mg tablet 5 mg PO QAM #30 tabs 04/29/25 06/16/25 Rx metformin 500 mg tablet,extended 500 mg PO DIRECTED #30 tabs 04/29/25 06/16/25 Rx release 24 hr metoprolol succinate 25 mg 25 mg PO DAILY #30 tabs 04/29/25 06/16/25 Rx tablet,extended release 24 hr pantoprazole 40 mg tablet,delayed 40 mg PO QAM #30 tabs 04/29/25 06/16/25 Rx release rosuvastatin 10 mg tablet 10 mg PO QAM #30 tabs 04/29/25 06/16/25 Rx sertraline 50 mg tablet 50 mg PO QAM #30 tabs 04/29/25 06/16/25 Rx Patient History Medical History Bilateral knee pain Hypertension Diabetes Social History Smoking Status: Never smoker Hx Alcohol Use: No Hx Substance Use: No Preferred Language: Egyptian Communication Ability: Effective 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 Beliefs That Will Affect Care: None Current Living Situation: Alone Current Living Situation Comment: home alone Other Information That Helps Us Care for You: No Feels Safe at Home: Yes Safety Concerns: Feels Safe At This Time Gender Identity: Male Assistive Devices: Cane and Walker Physical Exam Mental Examination: Appearance: Disheveled Eye Contact: Sporadic Contact Motor Behavior: Slowed Speech: Poverty of Speech Mood: Calm and Sad Affect: Constricted Thought Process: Intact and Linear Thought Content: Intact Hallucinations: None Insight: Poor (to limited) Judgement: Poor (med non-adherence) Vital Signs (Past 24 Hours): Last Vital Signs Temp 36.4 C L 06/18/25 11:52 Pulse 93 H 06/18/25 11:52 Resp 16 06/18/25 11:52 BP 135/80 06/18/25 11:52 Pulse Ox 94 06/18/25 11:52 O2 Del Method Room Air 06/18/25 11:52 O2 Flow Rate 2 06/18/25 02:53 Results & Data (PSY) Medications Administered Acetaminophen (Acetaminophen 500 Mg Tab) 500 mg PO Q6H PRN PRN Reason: fever/pain Stop: 07/16/25 21:23 Last Admin: 06/17/25 21:31 Dose: 500 mg Documented By: ENEDINA Aripiprazole (Aripiprazole 2 Mg Tab) 2 mg PO [facility] Stop: 07/17/25 08:59 Last Admin: 06/18/25 09:21 Dose: 2 mg Documented By: Admin: 06/17/25 08:52 Dose: 2 mg Documented By: BRIEN Aspirin (Aspirin 81 Mg Ectab) 81 mg PO [facility] Stop: 07/17/25 08:59 Last Admin: 06/18/25 09:21 Dose: 81 mg Documented By: Admin: 06/17/25 08:53 Dose: 81 mg Documented By: BRIEN Azithromycin (Azithromycin 250 Mg Tab) 250 mg PO [facility] Stop: 06/22/25 08:59 Last Admin: 06/18/25 09:22 Dose: 250 mg Documented By: ANGELA Benzonatate (Benzonatate 100 Mg Capsule) 100 mg PO TID PRN PRN Reason: Cough Stop: 07/17/25 02:55 Last Admin: 06/18/25 09:19 Dose: 100 mg Documented By: Admin: 06/17/25 20:40 Dose: 100 mg Documented By: Admin: 06/17/25 03:08 Dose: 100 mg Documented By: ENEDINA Cyanocobalamin (Cyanocobalamin (B-12) 500 Mcg Tablet) 1,000 mcg PO DAILY [facility] Stop: 07/17/25 08:59 Last Admin: 06/18/25 09:21 Dose: 1,000 mcg Documented By: Admin: 06/17/25 08:53 Dose: 1,000 mcg Documented By: BRIEN Heparin Sodium/Dextrose (Heparin 07316 Unit/500 Ml D5w) 25,000 units in 500 mls @ 39 mls/hr IV .[id number] [facility]; Protocol Stop: 07/16/25 20:29 Last Titration: 06/18/25 11:41 Dose: 2,050 units/hr, 41 mls/hr Documented By: ANGELA Co-signed By: JOSE M Titration: 06/18/25 07:16 Dose: 1,950 units/hr, 39 mls/hr Documented By: ANGELA Co-signed By: ENEDINA Admin: 06/18/25 06:48 Dose: Not Given Documented By: Admin: 06/18/25 04:50 Dose: 1,950 units/hr, 39 mls/hr Documented By: ENEDINA Co-signed By: SEKOU Titration: 06/18/25 04:49 Dose: Infused Documented By: ENEDINA Co-signed By: SEKOU Titration: 06/17/25 21:26 Dose: 1,850 units/hr, 37 mls/hr Documented By: ENEDINA Co-signed By: CHRISTIANO Titration: 06/17/25 19:05 Dose: 1,750 units/hr, 35 mls/hr Documented By: BRIEN Co-signed By: ENEDINA Admin: 06/17/25 16:09 Dose: 1,750 units/hr, 35 mls/hr Documented By: BRIEN Co-signed By: KARTHIK Titration: 06/17/25 15:32 Dose: Infused Documented By: BRIEN Co-signed By: KARTHIK Titration: 06/17/25 15:19 Dose: 1,750 units/hr, 35 mls/hr Documented By: BRIEN Co-signed By: KARTHIK Titration: 06/17/25 06:59 Dose: 1,600 units/hr, 32 mls/hr Documented By: BRIEN Co-signed By: ENEDINA Titration: 06/17/25 06:32 Dose: 1,600 units/hr, 32 mls/hr Documented By: ENEDINA Co-signed By: SEKOU Admin: 06/16/25 23:14 Dose: 1,450 units/hr, 29 mls/hr Documented By: ENEDINA Co-signed By: SEKOU Cefepime HCl (Maxipime 2000mg) 2,000 mg in 20 mls @ 5 mls/min IV Q8H [facility]; Protocol Stop: 06/22/25 13:59 Last Admin: 06/18/25 05:09 Dose: 5 mls/min Documented By: Admin: 06/17/25 21:28 Dose: 5 mls/min Documented By: Admin: 06/17/25 14:13 Dose: 5 mls/min Documented By: BRIEN Insulin Aspart (Insulin Aspart Per Unit Charge) 0 units SC ACHS [facility] Stop: 07/16/25 22:27 Last Admin: 06/18/25 09:20 Dose: 1 units Documented By: ANGELA Co-signed By: RNC Admin: 06/17/25 20:39 Dose: Not Given Documented By: ENEDINA Co-signed By: SEKOU Admin: 06/17/25 18:07 Dose: Not Given Documented By: Admin: 06/17/25 12:29 Dose: Not Given Documented By: Admin: 06/17/25 08:32 Dose: 6 units Documented By: BRIEN Co-signed By: KARTHIK Admin: 06/16/25 22:43 Dose: 6 units Documented By: ENEDINA Co-signed By: FILIPE Insulin Glargine (Lantus Per Unit Charge) 15 units SQ BID [facility] Stop: 07/16/25 21:29 Last Admin: 06/18/25 09:19 Dose: 15 units Documented By: ANGELA Co-signed By: JOSE M Admin: 06/17/25 20:39 Dose: 15 units Documented By: ENEDINA Co-signed By: SEKOU Admin: 06/17/25 08:32 Dose: 15 units Documented By: BRIEN Co-signed By: KARTHIK Admin: 06/16/25 22:44 Dose: 15 units Documented By: ENEDINA Co-signed By: FILIPE Lactobacillus Acidophilus (Advanced Probiotic 625 Mg Capsule) 1,250 mg PO DAILY [facility] Stop: 07/17/25 08:59 Last Admin: 06/18/25 09:20 Dose: 1,250 mg Documented By: Admin: 06/17/25 08:52 Dose: 1,250 mg Documented By: BRIEN Levothyroxine Sodium (Levothyroxine Sodium 175 Mcg Tablet) 175 mcg PO DAILYBB [facility] Stop: 07/17/25 06:29 Last Admin: 06/18/25 06:03 Dose: 175 mcg Documented By: Admin: 06/17/25 05:30 Dose: 175 mcg Documented By: ENEDINA Metoprolol Succinate (Metoprolol Succ 25mg Ext Rel Tab) 25 mg PO DAILY [facility] Stop: 07/17/25 08:59 Last Admin: 06/18/25 10:35 Dose: 25 mg Documented By: Admin: 06/17/25 09:08 Dose: Not Given Documented By: BRIEN Miconazole Nitrate (Miconazole Nitrate Powder 85 Gm) 1 appln EXT BID [facility] Stop: 07/17/25 02:59 Last Admin: 06/18/25 09:21 Dose: 1 appln Documented By: Admin: 06/17/25 20:39 Dose: 1 appln Documented By: Admin: 06/17/25 03:08 Dose: 1 appln Documented By: ENEDINA Pantoprazole Sodium (Pantoprazole 40 Mg Tab) 40 mg PO QAM [facility] Stop: 07/17/25 08:59 Last Admin: 06/18/25 09:21 Dose: 40 mg Documented By: Admin: 06/17/25 08:52 Dose: 40 mg Documented By: BRIEN Sertraline HCl (Sertraline Hcl 50 Mg Tablet) 50 mg PO QAM [facility] Stop: 07/17/25 08:59 Last Admin: 06/18/25 09:21 Dose: 50 mg Documented By: Admin: 06/17/25 08:53 Dose: 50 mg Documented By: BRIEN Tamsulosin HCl (Tamsulosin Hcl 0.4 Mg Cap) 0.4 mg PO DAILY [facility] Stop: 07/17/25 08:59 Last Admin: 06/18/25 09:21 Dose: 0.4 mg Documented By: Admin: 06/17/25 08:53 Dose: 0.4 mg Documented By: BRIEN [place] [address] IN/OBS CONSULT LVL 5,80M Patient Type New History Detailed Exam Detailed Medical Decision Making High Complexity Diagnoses Depression with suicidal ideation F32.A; R45.851 SOB (shortness of breath) R06.02 Nonadherence to medication Z91.148
[2025-06-18] MEDS: FUROSEMIDE INJ 20 MG/2 ML VIAL IV ONE (14:08)
[2025-06-18] MEDS: POTASSIUM CHLORIDE CRTAB 20 MEQ TABCR PO STA (14:08)
--- NOTE | 2025-06-18 16:26 | Cardiology Progress Note ---
Date of Service June 18, 2025 Assessment & Plan (1) Heart failure with reduced ejection fraction (HFrEF): (2) Ischemic cardiomyopathy: (3) Pulmonary embolism, bilateral: (4) LV (left ventricular) mural thrombus: (5) Hyponatremia: (6) Nonadherence to medication: (7) CAD (coronary artery disease): Plan 60-year-old male presenting to the emergency department with shortness of breath. Symptoms secondary to pulmonary embolism, possible aspiration, acute heart failure with reduced ejection fraction. Presentation/symptoms precipitated by noncompliance with all cardiovascular medications over the past 2 months. Hyponatremia noted on admission which I suspect is related to hypervolemia and possible SIADH in the setting of acute pulmonary embolism (possible pulmonary infarct) and possible aspiration pneumonia. Splenic infarct due to noncompliance with oral anticoagulation and cardioembolism in the setting of known left ventricular thrombus. History of severe nonoperable CAD and ischemic cardiomyopathy. 06/18/2025: -patient is stable from a cardiac perspective -Ok to transition back to PO Eliquis. Will need DVT loading dose. -Fluid status is stable. -close monitoring of renal function, electrolytes and strict I&O with jimenes weights. -Aspiration precautions -Antibiotics per primary team. -recommend palliative care consult if not already completed. Case has been discussed with Dr. Howard . Further recommendations regarding plan of care as per his assessment. I spent a total of 30 minutes on the date of service in preparation, delivery, documentation of the care provided to the patient excluding any time spent in the performance of separately billed services. KENNEDY [facility] Admission and Anticipated Discharge Date Admission Date: June 16, 2025 Supervising Physician Co-Signing Physician Notes I have reviewed the advanced practitioner's documentation on the date of service referenced in note, and I agree with, and take responsibility for the plan of care. I spent a total of [20] minutes coordinating, documenting, and providing care for this patient excluding time spent in the performance of separately billed services or time spent by another provider. Subjective 06/18/2025: Patient seen and examined in follow up today. Feeling fair. offers no acute concerns. Resting in bed. Labs, vitals, diagnostics, telemetry and documentation reviewed. Telemetry reviewed showing SR with 1st degree AVB Review of Systems Review of Systems: All systems reviewed & are unremarkable except as noted in HPI & below Physical Exam Constitutional: well developed and well nourished; no acute distress and not ill appearing Neck: normal visual inspection and trachea midline Respiratory: normal respiratory effort; no respiratory distress, no labored breathing and no cough Cardiovascular: Rate/Rhythm: regular rate and regular rhythm Heart Sounds: normal S1 and normal S2 Vessels: dorsalis pedis pulses present; no JVD Extremities: + edema (trace BLE) Skin: no rashes, warm and dry Psychiatric: Orientation: alert and oriented x 3 Affect: + flat affect Results & Data Vital Signs (Past 12 Hours) Vital Signs Temp Pulse Pulse Resp BP BP Pulse Ox 06/18/25 15:52 36.3 C L 83 17 92/67 L 92 06/18/25 13:56 87 06/18/25 11:52 36.4 C L 93 H 16 135/80 94 06/18/25 10:35 100/65 06/18/25 08:22 36.6 C 87 18 93/63 L 91 06/18/25 07:43 06/18/25 07:05 87 O2 Del Method 06/18/25 15:52 Room Air 06/18/25 13:56 06/18/25 11:52 Room Air 06/18/25 10:35 06/18/25 08:22 Room Air 06/18/25 07:43 Room Air 06/18/25 07:05 Laboratory Results CBC 06/18/25 Range/Units 03:43 WBC 16.30 H (4.8-10.8) K/ul RBC 4.39 L (4.70-6.10) M/uL Hgb 10.7 L (14.0-18.0) g/dl Hct 32.6 L (42.0-52.0) % Plt Count 151 (130-400) K/uL Comprehensive Metabolic Panel 06/17/25 06/17/25 06/18/25 Range/Units 16:12 20:38 03:43 Sodium 122 L 123 L 123 L (136-145) mmol/L Potassium 3.8 3.7 (3.5-5.1) mmol/L Chloride 93 L 93 L (98-107) mmol/L Carbon Dioxide 22 22 (21-32) mmol/L BUN 22 23 (6-23) mg/dl Creatinine 1.21 1.20 (0.6-1.4) mg/dl Glucose 131 H 132 H (70-99(Fasting)) mg/dl Calcium 8.4 L 8.2 L (8.6-10.3) mg/dl Intake and Output 06/18/25 06/18/25 06/18/25 06:59 14:59 22:59 Intake Total 515.083 / 2428.900 267.15 / 367.15 100 / 367.15 Output Total 200 / 300 350 / 350 Balance 315.083 / 2128.900 267.15 / 17.15 -250 / 17.15 Intake: IV 315.083 / 2028.900 267.15 / 267.15 Heparin 40300 Unit/500 ml D5w 315.083 / 773.900 267.15 / 267.15 25,000 units In 500 ml @ 2,050 UNITS/HR 41 mls/hr IV .[id number] [facility] Rx#:[id number] Oral 200 / 400 100 / 100 Output: Urine Amount (Catheter) 200 / 300 350 / 350 Benavides/Indwelling 200 / 300 350 / 350 Other: Weight 106 kg Weight Measurement Method Built in [facility] Care Time/CCT Total # of Minutes Spent Total Time Spent with Patient: Total time spent is greater than 50% in coordination of care (as documented) at patient's floor/unit and/or counseling patient: Coding [place] [address] SUB INP/OBS CARE 3/50MIN Patient Type Established Diagnoses Heart failure with reduced ejection fraction (HFrEF) I50.20 Ischemic cardiomyopathy I25.5 Pulmonary embolism, bilateral I26.99 LV (left ventricular) mural thrombus I51.3 Hyponatremia E87.1 Nonadherence to medication Z91.148 Coronary artery disease of [place] artery of [place] heart with stable angina pectoris I25.118 Associated angina: with stable angina Coronary Disease-Associated Artery/Lesion type: [place] artery Hoh vs. transplanted heart: [place] heart Time Spent (min) 30 (7) CAD (coronary artery disease) Associated angina: with stable angina Coronary Disease-Associated Artery/Lesion type: [place] artery [place]oh vs. transplanted heart: [place] heart Qualified Code(s): I25.118 - Atherosclerotic heart disease of [place] coronary artery with other forms of angina pectoris
[2025-06-18 19:24] LABS: ANTI-Xa, UFH(UnfractionatedHep 0.21 IU/ml (0.3-0.7)
[2025-06-19 02:08] LABS: Hematocrit (blood only) 34.1 % (42.0-52.0); Hemoglobin 11.6 g/dl (14.0-18.0); Mean Corpuscular Hemoglobin 25.1 pg (25.0-34.0); Mean Corpuscular Volume 73.8 fL (80.0-100.0); Platelet Count 151 K/uL (130-400); RDW Standard Deviation 41.1 fL (36.4-46.3); Red Blood Count 4.62 M/uL (4.70-6.10); White Blood Count 16.02 K/ul (4.8-10.8)
[2025-06-19 02:25] LABS: Anion Gap 6.0 (3-11); Blood Urea Nitrogen 21.0 mg/dl (6-23); Calcium 8.2 mg/dl (8.6-10.3); Carbon Dioxide 23.0 mmol/L (21-32); Chloride 95.0 mmol/L (98-107); Creatinine Clr Calc Pharmacy 87.5 ml/min; Glucose 125.0 mg/dl (70-99(Fasting)); Magnesium 1.7 mg/dl (1.7-2.4); Potassium 3.8 mmol/L (3.5-5.1); Sodium 124.0 mmol/L (136-145)
[2025-06-19 02:35] LABS: ANTI-Xa, UFH(UnfractionatedHep 0.26 IU/ml (0.3-0.7)
--- NOTE | 2025-06-19 08:45 | Hospitalist Progress Note ---
Date of Service June 19, 2025 Assessment & Plan (1) SOB (shortness of breath): Plan: Mr. 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 06/17 Per previous provider - Discussion had with brother this am who reports patient has been trying to participate with PT, but gets overwhelmed with lack of progress and multiple medications. Patient reports passive SI, but seems to seek help. When asked about his true feelings with hospice, he understands its for end of life treatment, but he also reports wanting to trial things again to help him "get better" Seems conflicted by depression with resultant medication noncompliance Plan for psych consult and cards to help optimize Issues with medication compliance are long standing #Acute hypoxic resp failure, multifactorial #Severe sepsis 2/2 bacterial pneumonia #History of silent aspiration biofire negative CT revealed prominent areas of opacities in lungs Risk for pseudomonas given DM hx and comordbities Changed ertapenem to cefepime Continue Azithromycin , adding flagyl for anaerobic coverage as concern for aspiration as well sputum culture ordered incentive spirometry and flutter valve ordered aspiration precautions Speech: patient already completed VFSS,aspiration with thin and thickened -Continue mouth care and encourage follow recommendations wean o2 as able - currently on RA Lactate downtrending, concern some elevation related to heart faliure ex acerbation given notable BLE edema #Bilateral pulmonary emboli #apical cardiac thrombus #DVT in LLE #Splenic infarct history of known cardiac thrombus iso HFrEF, recent noncompliance with eliquis DVT with thrombophlebitis and left common femoral vein DVT multiple pulm emboli noted ECHO ordered Heparin drip for 48 hours, transition back to Eliquis with DVT loading dose #acute on chronic heart failure with reduced EF #Ischemic cardiomyopathy, multivessel CAD #valvular heart disease (mild MR/TR) feel patient's volume status is challenging given heart failure and sepsis suspect exacerbation given noncompliance with meds and BNP at 968, likely contributing to SOB Resume Metoprolol Hold lisinopril and imdur given hypotension at this time iso sepsis, resume as able continue statin and ASA not on routine diuertic, but appears quite overloaded based on extremities Cardiology consulted for additional recommendations given tenuous hemodynamics #hypoosmolar hyponatremia secondary to illness, ?volume Patient with hfref and seemingly overloaded based up on BLE and BNP, however, n oted to be in sepsis upon arrival BMP at 126 now 124 on repeat, suspect more related to either siadh v volume overload iso med noncompliance Urine osmo ordered TSH also elevated likely contributing urine electrolytes ordered If downtrending will consider nephrology FR 2L for now received low dose lasix stopping iv hep., re-check BMP tmrw AM #Hypothyoridism elevated TSH likely iso noncompliance resume prior dosing repeat in 4-6 weeks #MDD #Anxiety palliative consulted on admission 11/14 request for hospice discussed further with patient and brother, seeming passive SI however does endorse desire to improve would like to encourage patient and involve psych -made clear to brother that patient doesn't have much leeway for further noncompliance until considering hospice may be the most appropriate given severity of comorbidities, but given age and desire from patient for some options, will continue with psych consult Per psychiatry - 06/18/25: Increase Abilify to 5mg daily - increased Increase Sertraline to 100mg daily - plan to increase Start Lorazepam 0.5mg BID PRN for anxiety, insomnia No indication for bedside sitter at this time #chronic anemia - hemoglobin downtrending - cont. to closely monitor H&H #hypertension relative hypotension iso acute illness hold lisinopril and imdur #hyperlipidemia continue statin #CHARLEEN CPAP intolerance consider overnight pulse ox when pneumonia improves for nocturnal oxygen prior to d/c #prior cva continue statin, asa - chronic left sided weakness #DM2 insulin requiring, patient hyperglycemic secondary to medication noncompliance, well-controlled as recent hemoglobin A1c of 6.8 last January 2025. 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 IV heparin -> transition to eliquis DNR/DNI Patient brother - Mr. Jose Corbin, contact #[phone]. Admission and Anticipated Discharge Date Admission Date: June 16, 2025 Subjective Pt seen in follow up Hospitalized in April as pt depressed and stopped taking his medication Discussed that pt stopped taking medications but he did want to be seen in hospital, and he feels ok staying in the hospital for treatment Reports cough No chest pain, shortness of breath, no pain in LE extremities Cardiology, psychiatry consulted Pt also seen by palliative med. IV heparin - plan to switch to eliquis Abilify increased to 5 mg Review of Systems Review of Systems: All systems reviewed & are unremarkable except as noted in Subjective Physical Exam Physical Exam: GENERAL: obese M, chronically ill-appearing, in NAD SKIN: Pallor, warm HEENT: Alopecia, pale palpebral conjunctivae, no ptosis NECK : Supple CHEST : Decreased breath sounds, occasional expiratory wheezes, no tenderness HEART : Diminished S1-S2, RRR ABDOMEN: soft, obese, some distention, nontender EXTREMITIES : + LE edema, no LE tenderness, moves extremities NEURO/ PSYCH : awake, alert, able to answer simple questions, + flat affect, speech fluent, moves extremities Results & Data Results & Data Vital Signs (Past 12 Hours) Vital Signs Temp Pulse Pulse Resp BP Pulse Ox O2 Del Method 06/19/25 08:13 36.6 C 84 19 101/69 94 Room Air 06/19/25 07:39 89 06/19/25 07:10 Room Air 06/19/25 02:48 36.5 C 90 18 125/83 94 Room Air 06/19/25 01:07 90 06/18/25 23:05 36.5 C 85 18 102/71 93 Room Air Laboratory Results 06/19/25 06/19/25 06/18/25 Range/Units 08:11 01:42 20:13 WBC 16.02 H (4.8-10.8) K/ul RBC 4.62 L (4.70-6.10) M/uL Hgb 11.6 L (14.0-18.0) g/dl Hct 34.1 L (42.0-52.0) % MCV 73.8 L (80.0-100.0) fL MCH 25.1 (25.0-34.0) pg MCHC 34.0 (32.0-36.0) g/dL RDW Std Deviation 41.1 (36.4-46.3) fL RDW Coeff of Oziel 15.4 H (11.5-14.5) % Plt Count 151 (130-400) K/uL MPV 9.8 (9.4-12.4) fL Heparin Anti-Xa, Unfract 0.26 L (0.3-0.7) IU/ml Sodium 124 L (136-145) mmol/L Potassium 3.8 (3.5-5.1) mmol/L Chloride 95 L (98-107) mmol/L Carbon Dioxide 23 (21-32) mmol/L Anion Gap 6 (3-11) BUN 21 (6-23) mg/dl Creatinine 1.05 (0.6-1.4) mg/dl Est Cr Clr Drug Dosing 87.5 ml/min eGFR 82.28 BUN/Creatinine Ratio 20.0 (10-20) Glucose 125 H (70-99(Fasting)) mg/dl POC Glucose 100 H 137 H (70-99) mg/dl Calcium 8.2 L (8.6-10.3) mg/dl Phosphorus 3.3 (2.5-4.9) mg/dl Magnesium 1.7 (1.7-2.4) mg/dl 06/18/25 06/18/25 06/18/25 Range/Units 18:46 17:02 12:05 WBC (4.8-10.8) K/ul RBC (4.70-6.10) M/uL Hgb (14.0-18.0) g/dl Hct (42.0-52.0) % MCV (80.0-100.0) fL MCH (25.0-34.0) pg MCHC (32.0-36.0) g/dL RDW Std Deviation (36.4-46.3) fL RDW Coeff of Oziel (11.5-14.5) % Plt Count (130-400) K/uL MPV (9.4-12.4) fL Heparin Anti-Xa, Unfract 0.21 L (0.3-0.7) IU/ml Sodium (136-145) mmol/L Potassium (3.5-5.1) mmol/L Chloride (98-107) mmol/L Carbon Dioxide (21-32) mmol/L Anion Gap (3-11) BUN (6-23) mg/dl Creatinine (0.6-1.4) mg/dl Est Cr Clr Drug Dosing ml/min eGFR BUN/Creatinine Ratio (10-20) Glucose (70-99(Fasting)) mg/dl POC Glucose 118 H 142 H (70-99) mg/dl Calcium (8.6-10.3) mg/dl Phosphorus (2.5-4.9) mg/dl Magnesium (1.7-2.4) mg/dl 06/18/25 Range/Units 10:48 WBC (4.8-10.8) K/ul RBC (4.70-6.10) M/uL Hgb (14.0-18.0) g/dl Hct (42.0-52.0) % MCV (80.0-100.0) fL MCH (25.0-34.0) pg MCHC (32.0-36.0) g/dL RDW Std Deviation (36.4-46.3) fL RDW Coeff of Oziel (11.5-14.5) % Plt Count (130-400) K/uL MPV (9.4-12.4) fL Heparin Anti-Xa, Unfract 0.20 L (0.3-0.7) IU/ml Sodium (136-145) mmol/L Potassium (3.5-5.1) mmol/L Chloride (98-107) mmol/L Carbon Dioxide (21-32) mmol/L Anion Gap (3-11) BUN (6-23) mg/dl Creatinine (0.6-1.4) mg/dl Est Cr Clr Drug Dosing ml/min eGFR BUN/Creatinine Ratio (10-20) Glucose (70-99(Fasting)) mg/dl POC Glucose (70-99) mg/dl Calcium (8.6-10.3) mg/dl Phosphorus (2.5-4.9) mg/dl Magnesium (1.7-2.4) mg/dl Medications Administered Current Inpatient Medications Acetaminophen (Acetaminophen 500 Mg Tab) 500 mg PO Q6H PRN PRN Reason: fever/pain Stop: 07/16/25 21:23 Last Admin: 06/17/25 21:31 Dose: 500 mg Apixaban (Apixaban 5 Mg Tablet) 10 mg PO BID [facility] Stop: 06/25/25 21:01 Aripiprazole ([facility] 5 Mg Tab) [facility] [facility]: 07/19/25 08:59 Aspirin (Aspirin 81 Mg Ectab) [facility] [place] [facility]: 07/17/25 08:59 Last Admin: 06/18/25 09:21 Dose: 81 mg Azithromycin (Azithromycin 250 Mg Tab) [facility] [place] Stop: 06/22/25 08:59 Last Admin: 06/18/25 09:22 Dose: 250 mg Benzonatate (Benzonatate 100 Mg Capsule) 100 mg PO TID PRN PRN Reason: Cough Stop: 07/17/25 02:55 Last Admin: 06/18/25 09:19 Dose: 100 mg Cyanocobalamin (Cyanocobalamin (B-12) 500 Mcg Tablet) 1,000 mcg PO DAILY [facility] Stop: 07/17/25 08:59 Last Admin: 06/18/25 09:21 Dose: 1,000 mcg Dextrose (Dextrose 50% 50 Ml Syringe) 25 - 50 ml IV UD PRN; Protocol PRN Reason: Hypoglycemia Protocol Stop: 07/16/25 22:27 Glucagon (Glucagon For Inj 1 Mg Vial) 1 mg SQ UD PRN; Protocol PRN Reason: Hypoglycemia Protocol Stop: 07/16/25 22:27 Glucose (Glucose 40% Gel 15 Gm Tube) 15 - 30 gm PO UD PRN; Protocol PRN Reason: Hypoglycemia Protocol Stop: 07/16/25 22:27 Glucose (Glucose 10 Tab/Tube) 4 - 8 tab PO UD PRN; Protocol PRN Reason: Hypoglycemia Protocol Stop: 07/16/25 22:27 Heparin Sodium/Dextrose (Heparin 97023 Unit/500 Ml D5w) 25,000 units in 500 mls @ 45 mls/hr IV .Q11H7M [facility]; Protocol Stop: 07/16/25 20:29 Last Titration: 06/19/25 06:55 Dose: 2,250 units/hr, 45 mls/hr Promethazine HCl (Phenergan) 12.5 mg in 50.5 mls @ 202 mls/hr IV Q6H PRN PRN Reason: Nausea And Vomiting Stop: 07/16/25 21:23 Cefepime HCl (Maxipime 2000mg) 2,000 mg in 20 mls @ 5 mls/min IV Q8H [facility]; Protocol Stop: 06/22/25 13:59 Last Admin: 06/19/25 05:45 Dose: 5 mls/min Insulin Aspart (Insulin Aspart Per Unit Charge) 0 units SC ACHS [facility] Stop: 07/16/25 22:27 Last Admin: 06/18/25 20:30 Dose: Not Given Insulin Glargine (Lantus Per Unit Charge) 15 units SQ BID [facility] Stop: 07/16/25 21:29 Last Admin: 06/18/25 20:41 Dose: 15 units Lactobacillus Acidophilus (Advanced Probiotic 625 Mg Capsule) 1,250 mg PO DAILY [facility] Stop: 07/17/25 08:59 Last Admin: 06/18/25 09:20 Dose: 1,250 mg Levothyroxine Sodium (Levothyroxine Sodium 175 Mcg Tablet) 175 mcg PO DAILYBB [facility] Stop: 07/17/25 06:29 Last Admin: 06/19/25 05:45 Dose: 175 mcg Magnesium Oxide (Magnesium Oxide 400 Mg Tab) 400 mg PO BID [facility] Stop: 07/19/25 08:59 Metoprolol Succinate (Metoprolol Succ 25mg Ext Rel Tab) 25 mg PO DAILY [facility] Stop: 07/17/25 08:59 Last Admin: 06/18/25 10:35 Dose: 25 mg Miconazole Nitrate (Miconazole Nitrate Powder 85 Gm) 1 appln EXT BID [facility] Stop: 07/17/25 02:59 Last Admin: 06/18/25 20:41 Dose: 1 appln Miscellaneous (Carbohydrates For Hypoglycemia ) 15 - 30 gm PO UD PRN PRN Reason: Hypoglycemia Protocol Stop: 07/16/25 22:27 Oxycodone HCl (Oxycodone Hcl Ir 5 Mg Tab (Immediate Release)) 5 mg PO Q4H PRN PRN Reason: Pain Stop: 06/30/25 21:23 Pantoprazole Sodium (Pantoprazole 40 Mg Tab) 40 mg PO QAM [facility] Stop: 07/17/25 08:59 Last Admin: 06/18/25 09:21 Dose: 40 mg Sertraline HCl (Sertraline Hcl 50 Mg Tablet) 50 mg PO QAM [facility] Stop: 07/17/25 08:59 Last Admin: 06/18/25 09:21 Dose: 50 mg Tamsulosin HCl (Tamsulosin Hcl 0.4 Mg Cap) 0.4 mg PO DAILY [facility] Stop: 07/17/25 08:59 Last Admin: 06/18/25 09:21 Dose: 0.4 mg
[2025-06-19] MEDS: APIXABAN 5 MG TABLET PO SCH (09:31)
[2025-06-19] MEDS: ARIPiprazole 5 MG TAB PO SCH (09:31)
[2025-06-19] MEDS: MAGNESIUM OXIDE 400 MG TAB PO SCH (09:31)
[2025-06-19 09:45] LABS: ANTI-Xa, UFH(UnfractionatedHep 0.31 IU/ml (0.3-0.7)
[2025-06-19] MEDS: guaiFENesin 600 MG TABCR PO SCH (12:52)
[2025-06-19] MEDS: metroNIDAZOLE 500 MG TAB PO SCH (12:52)
[2025-06-19] MEDS: PROMETHAZINE 12.5 MG/50.5 ML BAG IV PRN (16:18)
[2025-06-19] MEDS: FAMOTIDINE 20MG IV PUSH 20 MG/5 ML SYR IV STA (17:12)
--- NOTE | 2025-06-20 05:53 | Communication Note ---
Date of Service: June 20, 2025 Patient more confused, left upper extremity seems weaker than previous days as per RN. No headache symptoms. BSG 80s. AP Encephalopathy LUE weakness Ongoing anticoagulation for cardiac thrombus Rule out bleed ? Cefepime neurotoxicity contributory CT head Hold aspirin and Eliquis until CT head resulted A.m. labs now Ceftriaxone in place of cefepime for now
[2025-06-20 06:28] LABS: Hematocrit (blood only) 36.9 % (42.0-52.0); Hemoglobin 12.2 g/dl (14.0-18.0); Mean Corpuscular Hemoglobin 24.6 pg (25.0-34.0); Mean Corpuscular Volume 74.5 fL (80.0-100.0); Platelet Count 163 K/uL (130-400); RDW Standard Deviation 41.7 fL (36.4-46.3); Red Blood Count 4.95 M/uL (4.70-6.10); White Blood Count 13.81 K/ul (4.8-10.8)
[2025-06-20] MEDS: MAGNESIUM SULFATE / D5W 1 GM/100 ML BAG IV SCH (06:28)
--- NOTE | 2025-06-20 06:39 | CT Scan Report ---
EXAM: CT head/brain wo con CLINICAL HISTORY: weakness, noac TECHNIQUE: Multiple axial images are obtained from the skull base to the vertex without contrast. CT scan was performed according to ALARA (as low as reasonably achievable). COMPARISON: APRIL 24/2025 16:38:00 CS. FINDINGS: There is cerebral atrophy. No evidence of space occupying lesion, hemorrhage, edema, mass effect, midline shift, extra axial collection, or hydrocephalus is noted. Basal cisterns are symmetric and normal in size and configuration. There are scattered periventricular hypodensities as can be seen with chronic microvascular ischemic changes. The fang-white matter differentiation is preserved. Visualized paranasal sinuses and mastoid air cells are well aerated. Orbital contents are within normal limits. Bony structures are intact. IMPRESSION: 1. No evidence of acute intracranial abnormality is demonstrated. 2. Chronic microvascular ischemic changes.-stable. 3. Cerebral atrophy.-stable. Electronically signed by Louie Quevedo 06-20-2025 06:39 AM
[2025-06-20 06:58] LABS: Anion Gap 6.0 (3-11); Blood Urea Nitrogen 17.0 mg/dl (6-23); Calcium 8.5 mg/dl (8.6-10.3); Carbon Dioxide 26.0 mmol/L (21-32); Chloride 94.0 mmol/L (98-107); Creatinine Clr Calc Pharmacy 96.7 ml/min; Glucose 84.0 mg/dl (70-99(Fasting)); Magnesium 1.9 mg/dl (1.7-2.4); Potassium 3.7 mmol/L (3.5-5.1); Sodium 126.0 mmol/L (136-145)
[2025-06-20] MEDS: APIXABAN 5 MG TABLET PO SCH (08:30)
[2025-06-20] MEDS: FUROSEMIDE INJ 20 MG/2 ML VIAL IV ONE (09:28)
--- NOTE | 2025-06-20 12:21 | Hospitalist Progress Note ---
Date of Service June 20, 2025 Assessment & Plan (1) Pulmonary embolism, bilateral: (2) Splenic infarction: (3) LV (left ventricular) mural thrombus: (4) Ischemic cardiomyopathy: (5) Acute on chronic heart failure with reduced ejection fraction (HFrEF, <= 40%): (6) Aspiration pneumonia: (7) Hypertension: (8) DM2 (diabetes mellitus, type 2): (9) Acute hypoxemic respiratory failure: (10) Hyponatremia: Plan Patient 60-year-old gentleman with multiple comorbidities presented with acute hypoxia due to suspected aspiration subsequent aspiration pneumonia. Also diagnosed bilateral pulmonary embolism due to nonadherence with his anticoagulation regimen and subsequent DVT. Acute event overnight, patient more encephalopathic and confused. Patient did receive Phenergan last evening. This may be due to that. Also was concerned it may have been due to the cefepime and that was discontinued. Head CT was unremarkable Can resume anticoagulation All cultures are negative, transition to oral antibiotics for coverage of presumed aspiration pneumonia Patient examines as though he is volume overloaded, weight is increased, give IV Lasix x 1 dose and assess need for diuretics daily Anticipate sodium improving as patient recovers from acute lung injury as well as his volume status improves Continue to monitor glucose with insulin coverage Physical therapy and Occupational Therapy evaluation Case management evaluating whether patient can return home Increase sertraline as recommended by psychiatry Phone conversation updated patient's brother. He is currently living with the patient and can assist if patient is able to return home from this hospitalization. Admission and Anticipated Discharge Date Admission Date: June 16, 2025 Subjective Patient events overnight noted, acute encephalopathy. Mentation seems to be improved this morning. Denies any chest pain or shortness of breath. Physical Exam Physical Exam: Constitutional: Alert, nontoxic in appearance HEENT: Mucous membranes moist. Lungs: Decreased breath sounds, Rales at bases CV: S1-S2, regular Abdomen: Soft, nontender, nondistended Extremities: Trace pretibial edema Neuro: No focal deficits, generalized weakness Psych: Cooperative, normal mood Results & Data Results & Data Vital Signs (Past 12 Hours) Vital Signs Temp Pulse Pulse Resp BP Pulse Ox O2 Del Method 06/20/25 11:21 36.3 C L 79 18 98/65 L 92 Room Air 06/20/25 07:45 80 06/20/25 07:45 Room Air 06/20/25 07:33 36.2 C L 81 18 118/82 97 Room Air 06/20/25 03:35 36.3 C L 89 20 132/89 93 Room Air Diagnostic Findings Reviewed imaging, laboratory and diagnostic studies. Pertinent findings as below. blood and urine cultures no growth WBCs 13.8, improved Hemoglobin 12.2 Sodium 126 Potassium 3.[address] done early this morning showed no acute bleed Weight increased 2 kg (7) Hypertension Hypertension type: unspecified Qualified Code(s): I10 - Essential (primary) hypertension
[2025-06-20] MEDS ORDERED: cefTRIAXone SODIUM 2,000 MG/50 ML BAG IV SCH (13:00)
[2025-06-21 06:01] LABS: Hematocrit (blood only) 35.3 % (42.0-52.0); Hemoglobin 11.3 g/dl (14.0-18.0); Mean Corpuscular Hemoglobin 23.5 pg (25.0-34.0); Mean Corpuscular Volume 73.5 fL (80.0-100.0); Platelet Count 174 K/uL (130-400); RDW Standard Deviation 41.7 fL (36.4-46.3); Red Blood Count 4.80 M/uL (4.70-6.10); White Blood Count 13.14 K/ul (4.8-10.8)
[2025-06-21 06:17] LABS: Anion Gap 7.0 (3-11); Blood Urea Nitrogen 18.0 mg/dl (6-23); Calcium 8.1 mg/dl (8.6-10.3); Carbon Dioxide 24.0 mmol/L (21-32); Chloride 95.0 mmol/L (98-107); Creatinine Clr Calc Pharmacy 118.2 ml/min; Glucose 75.0 mg/dl (70-99(Fasting)); Potassium 3.6 mmol/L (3.5-5.1); Sodium 126.0 mmol/L (136-145)
--- NOTE | 2025-06-21 10:32 | Hospitalist Progress Note ---
Date of Service June 21, 2025 Assessment & Plan (1) Pulmonary embolism, bilateral: (2) Splenic infarction: (3) LV (left ventricular) mural thrombus: (4) Ischemic cardiomyopathy: (5) Acute on chronic heart failure with reduced ejection fraction (HFrEF, <= 40%): (6) Aspiration pneumonia: (7) Hypertension: (8) DM2 (diabetes mellitus, type 2): (9) Acute hypoxemic respiratory failure: (10) Hyponatremia: (11) Cerebrovascular small vessel disease: (12) Vascular dementia: Plan Patient overall tolerating anticoagulation continue to load with Eliquis, anticipate patient will need lifelong anticoagulation Confusion seems to wax and wane, reviewed head CT again, does show microvascular ischemic disease, high suspicion for vascular dementia continue supportive care Patient continues to appear somewhat volume overloaded, known decreased ejection fraction. Give additional IV Lasix today, potassium supplementation Follow electrolytes and renal function in a.m. Therapy evaluation today Communication with case management, anticipate patient will need rehab prior to returning home Continue to monitor glucose and cover with insulin Sodium has plateaued. Suspect this may be somewhat SIADH from lung infection, could also be due to his SSRI, will continue to monitor as we diurese Continue oral antibiotics ,Reviewed blood pressure overall controlled and improved. As patient continues to recover from acute illness, will attempt to restart titrating up goal-direc shazia medical therapies for his heart failure/reduced ejection fraction. Transfer to [facility] Admission and Anticipated Discharge Date Admission Date: June 16, 2025 Subjective Patient states he slept well overnight. Denies any chest pain or shortness of breath. Nursing reports some waxing and waning confusion. He needed significant amount of assistance when attempting get out of bed yesterday. Physical Exam Physical Exam: Constitutional: Alert, nontoxic in appearance HEENT: Mucous membranes moist. Lungs: Decreased breath sounds, Rales at the bases bilaterally CV: S1-S2, regular, systolic murmur Abdomen: Soft, nontender, nondistended Extremities: Some upper extremity edema, some dependent edema posterior thighs sacrum Neuro: No focal deficits generally weak Psych: Cooperative, flat affect, intermittent confusion, abnormal memory Results & Data Results & Data Vital Signs (Past 12 Hours) Vital Signs Temp Pulse Resp BP Pulse Ox O2 Del Method 06/21/25 07:39 36.3 C L 84 18 123/86 98 Room Air 06/21/25 02:29 36.6 C 81 14 116/78 93 Room Air 06/20/25 23:06 37.4 C 91 H 20 114/76 92 Room Air 06/20/25 22:29 Room Air Diagnostic Findings Reviewed imaging, laboratory and diagnostic studies. Pertinent findings as below. WBCs 13.1, improved Hemoglobin 11.3, stable Sodium 126, stable slightly improved Potassium 3.6 Creatinine 0.78 Reviewed intake and output, -800 cc (7) Hypertension Hypertension type: unspecified Qualified Code(s): I10 - Essential (primary) hypertension
[2025-06-21] MEDS: FUROSEMIDE 40 MG/4 ML VIAL IV ONE (10:35)
[2025-06-21] MEDS: POTASSIUM CHLORIDE CRTAB 20 MEQ TABCR PO SCH (10:35)
[2025-06-21] MEDS: MAGNESIUM OXIDE 400 MG TAB PO SCH (10:36)
[2025-06-21] MEDS: SERTRALINE HCL 100 MG TABLET PO SCH (10:38)
--- NOTE | 2025-06-21 11:49 | Palliative Care Progress Note ---
Date of Service June 21, 2025 Assessment & Plan (1) Counseling regarding goals of care: Plan: Met with pt at bedside briefly. He reinforced his desire to pursue therapies to enhance his health and mental well being. He e reinforced DNR/DNI status, but wishes for all life prolonging therapies to continue at this time. (2) Palliative care by specialist: Plan: GOC are clear and he has no ongoing symptom mgmt issues requiring palliative intervention. We will sign off on this patient as goals of care are clearly established for DNR/DNI but continue all other life prolonging therapies. Discussed case with Attending Dr Nicholson. Thank you for including Palliative Care in the management of this patient. Please call with any questions or concerns regarding this consultation. Plan as above Admission and Anticipated Discharge Date Admission Date: June 16, 2025 Subjective Assessed pt at bedside, pt denies discomfort only complaint is of extreme boredom. VSS, CELINA. Review of Systems Review of Systems: All systems reviewed & are unremarkable except as noted in Subjective Physical Exam Constitutional: WD/WN, vitals as above + obese Eyes: PERRL, conjunctivae normal, anicteric sclerae ENMT: external ear and nose normal, oropharynx normal Respiratory: normal respiratory effort, lungs clear to auscultation Cardiovascular: RRR, no murmur, no edema Gastrointestinal (Abdomen): normal bowel sounds, soft, nontender, no hepatosplenomegaly Psychiatric: Orientation: alert and oriented x 3 Affect: + flat affect Suicidal Thoughts: denies suicidal plan Homicidal Thoughts: denies homicidal thoughts Insight: + limited insight Results & Data Vital Signs (Past 12 Hours) Vital Signs Temp Pulse Resp BP Pulse Ox O2 Del Method 06/21/25 11:23 36.4 C L 85 18 111/77 96 Room Air 06/21/25 07:39 36.3 C L 84 18 123/86 98 Room Air 06/21/25 02:29 36.6 C 81 14 116/78 93 Room Air Laboratory Results Abnormal lab results 06/20/25 06/21/25 Range/Units 11:58 05:31 WBC 13.14 H (4.8-10.8) K/ul Hgb 11.3 L (14.0-18.0) g/dl Hct 35.3 L (42.0-52.0) % MCV 73.5 L (80.0-100.0) fL MCH 23.5 L (25.0-34.0) pg RDW Coeff of Oziel 15.9 H (11.5-14.5) % Sodium 126 L (136-145) mmol/L Chloride 95 L (98-107) mmol/L BUN/Creatinine Ratio 23.1 H (10-20) POC Glucose 106 H (70-99) mg/dl Calcium 8.1 L (8.6-10.3) mg/dl Diagnostic Findings Abdomen/Pelvis CT 06/16/25 18:07 EXAMINATION: CT of the abdomen and pelvis performed after the administration of IV contrast TECHNIQUE: Helical CT images from the lung bases through the symphysis pubis were obtained with contrast. Coronal and sagittal reformatted images were generated at a workstation for further assessment. Dose reduction techniques were achieved by using automatic exposure control and/or adjustment of mA and/or kV according to patient size and/or use of iterative reconstruction technique. COMPARISON: None HISTORY: Abdominal pain FINDINGS: Lower chest: The heart is enlarged. Dilated left ventricular cavity. An area of low attenuating density at the left ventricular apex is seen, measuring 19 mm in diameter most consistent with LV thrombus. There are small pleural effusions bilaterally. Prominent areas of consolidative opacity throughout both lung base bilateral segmental and subsegmental pulmonary emboli. Liver: No suspicious liver lesions. Portal veins appear patent. Gallbladder: No gallstones. No evidence of acute cholecystitis. The common bile duct stent is in place. Tiny focus of air in the gallbladder related to the stent. Spleen: Normal size. Focal wedge-shaped area of hypoenhancement is seen near the superior pole. Pancreas: No suspicious pancreatic lesions. The pancreatic duct is not dilated. Adrenal glands: No adrenal nodules. Kidneys: No hydronephrosis or obstructing renal stones. Bladder / Pelvic organs: Unremarkable. Bowel: No bowel obstruction. No abnormal bowel wall thickening. The appendix is unremarkable. Lymph nodes: No retroperitoneal, mesenteric, or pelvic lymphadenopathy. Peritoneum / Retroperitoneum: No free fluid or air within the abdomen. Vessels: No infrarenal aortic aneurysm. Bones and soft tissues: No suspicious lesion in the bones. IMPRESSION: Bilateral pulmonary emboli are partially seen. There are prominent areas of consolidative opacity throughout the lung bases, suspicious for infarction in the setting of pulmonary emboli, versus possibly infection. Cardiomegaly with dilated left ventricular cavity, with an area of low density material at the LV apex, consistent with thrombus. A wedge-shaped area of hypoenhancement at the superior spleen is consistent with splenic infarct. Electronically signed by Martinez Dugan 06-16-2025 8:02 PM Venous Doppler Study 06/16/25 21:22 CR Exam(s): US VENOUS BILATERAL LOWER EXTREMITIES EXAM: US Duplex Bilateral Lower Extremities Veins CLINICAL HISTORY: Leg swelling. TECHNIQUE: Real-time duplex ultrasound scan of the bilateral lower extremity veins integrating B-mode two-dimensional vascular structure, Doppler spectral analysis, color flow Doppler imaging and compression. COMPARISON: No relevant prior studies available. FINDINGS: Right deep veins: Unremarkable. No Deep vein thrombosis in the right common femoral, femoral, proximal deep femoral or popliteal veins. The veins demonstrate normal color flow, are normally compressible, with normal phasic flow and/or augmentation response. Right superficial veins: Unremarkable. No thrombus in the visualized right great saphenous vein. Left deep veins: Nonocclusive deep venous thrombosis of the left common femoral vein. The left superficial femoral vein, popliteal vein and veins calf are patent. Left superficial veins: There is thrombophlebitis of the left greater saphenous vein. Soft tissues: Nonspecific subcutaneous edema bilaterally. No popliteal cyst. IMPRESSION: 1. Nonocclusive deep venous thrombosis of the left common femoral vein. 2. There is thrombophlebitis of the left greater saphenous vein. 3. Nonspecific subcutaneous edema bilaterally. 4. No deep vein thrombosis of the right lower extremity. Communications: Verify Receipt Electronically signed by: Brenda Carolina MD 06/17/25 05:12 AM Chest X-Ray 06/17/25 06:33 EXAM: XR chest 1V portable CLINICAL HISTORY: sob TECHNIQUE: Radiograph of chest was acquired. 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 Inhomogeneous opacities noted involving bilateral lower zones- possibility of congestive changes/pneumonitis. Rest of both lungs are clear. The cardiomediastinal silhouette is within normal limits. No acute osseous abnormality. IMPRESSION: Blunting of bilateral costophrenic angle - suggestive of pleural effusion.- slightly increased Inhomogeneous opacities noted involving bilateral lower zones- possibility of congestive changes/pneumonitis.- increased Electronically signed by Louie Quevedo 06-17-2025 07:[address] 06/20/25 05:52 EXAM: CT head/brain wo con CLINICAL HISTORY: weakness, noac TECHNIQUE: Multiple axial images are obtained from the skull base to the vertex without contrast. CT scan was performed according to ALARA (as low as reasonably achievable). COMPARISON: APRIL 24/2025 16:38:00 CS. FINDINGS: There is cerebral atrophy. No evidence of space occupying lesion, hemorrhage, edema, mass effect, midline shift, extra axial collection, or hydrocephalus is noted. Basal cisterns are symmetric and normal in size and configuration. There are scattered periventricular hypodensities as can be seen with chronic microvascular ischemic changes. The fang-white matter differentiation is preserved. Visualized paranasal sinuses and mastoid air cells are well aerated. Orbital contents are within normal limits. Bony structures are intact. IMPRESSION: 1. No evidence of acute intracranial abnormality is demonstrated. 2. Chronic microvascular ischemic changes.-stable. 3. Cerebral atrophy.-stable. Electronically signed by Louie Quevedo 06-20-2025 06:39 AM Medications Administered Current Inpatient Medications Acetaminophen (Acetaminophen 500 Mg Tab) 500 mg PO Q6H PRN PRN Reason: fever/pain Stop: 07/16/25 21:23 Last Admin: 06/17/25 21:31 Dose: 500 mg Apixaban (Apixaban 5 Mg Tablet) 10 mg PO BID [facility] Stop: 06/24/25 08:59 Last Admin: 06/21/25 10:36 Dose: 10 mg Aripiprazole (Aripiprazole 5 Mg Tab) 5 mg PO QAM [facility] Stop: 07/19/25 08:59 Last Admin: 06/21/25 10:37 Dose: 5 mg Aspirin (Aspirin 81 Mg Ectab) 81 mg PO QAM [facility] Stop: 07/17/25 08:59 Last Admin: 06/21/25 10:37 Dose: 81 mg Azithromycin (Azithromycin 250 Mg Tab) 250 mg PO QAM [facility] Stop: 06/22/25 08:59 Last Admin: 06/21/25 10:37 Dose: 250 mg Benzonatate (Benzonatate 100 Mg Capsule) 100 mg PO TID PRN PRN Reason: Cough Stop: 07/17/25 02:55 Last Admin: 06/19/25 09:31 Dose: 100 mg Cefuroxime Axetil (Cefuroxime Axetil 500 Mg Tab) 500 mg PO BID [facility] Stop: 06/25/25 08:59 Last Admin: 06/21/25 10:37 Dose: 500 mg Cyanocobalamin (Cyanocobalamin (B-12) 500 Mcg Tablet) 1,000 mcg PO DAILY [facility] Stop: 07/17/25 08:59 Last Admin: 06/21/25 10:36 Dose: 1,000 mcg Dextrose (Dextrose 50% 50 Ml Syringe) 25 - 50 ml IV UD PRN; Protocol PRN Reason: Hypoglycemia Protocol Stop: 07/16/25 22:27 Glucagon (Glucagon For Inj 1 Mg Vial) 1 mg SQ UD PRN; Protocol PRN Reason: Hypoglycemia Protocol Stop: 07/16/25 22:27 Glucose (Glucose 40% Gel 15 Gm Tube) 15 - 30 gm PO UD PRN; Protocol PRN Reason: Hypoglycemia Protocol Stop: 07/16/25 22:27 Glucose (Glucose 10 Tab/Tube) 4 - 8 tab PO UD PRN; Protocol PRN Reason: Hypoglycemia Protocol Stop: 07/16/25 22:27 Guaifenesin (Guaifenesin 600 Mg Tabcr) 600 mg PO Q12 [facility] Stop: 07/19/25 10:54 Last Admin: 06/21/25 10:36 Dose: 600 mg Insulin Aspart (Insulin Aspart Per Unit Charge) 0 units SC ACHS [facility] Stop: 07/16/25 22:27 Last Admin: 06/21/25 10:14 Dose: Not Given Insulin Glargine (Lantus Per Unit Charge) 15 units SQ BID [facility] Stop: 07/16/25 21:29 Last Admin: 06/21/25 10:35 Dose: 15 units Lactobacillus Acidophilus (Advanced Probiotic 625 Mg Capsule) 1,250 mg PO DAILY [facility] Stop: 07/17/25 08:59 Last Admin: 06/21/25 10:37 Dose: 1,250 mg Levothyroxine Sodium (Levothyroxine Sodium 175 Mcg Tablet) 175 mcg PO DAILYBB [facility] Stop: 07/17/25 06:29 Last Admin: 06/21/25 05:41 Dose: 175 mcg Magnesium Oxide (Magnesium Oxide 400 Mg Tab) 400 mg PO BID [facility] Stop: 07/21/25 08:59 Last Admin: 06/21/25 10:36 Dose: 400 mg Metoprolol Succinate (Metoprolol Succ 25mg Ext Rel Tab) 25 mg PO DAILY [facility] Stop: 07/17/25 08:59 Last Admin: 06/21/25 10:37 Dose: 25 mg Miconazole Nitrate (Miconazole Nitrate Powder 85 Gm) 1 appln EXT BID [facility] Stop: 07/17/25 02:59 Last Admin: 06/21/25 10:37 Dose: 1 appln Miscellaneous (Carbohydrates For Hypoglycemia ) 15 - 30 gm PO UD PRN PRN Reason: Hypoglycemia Protocol Stop: 07/16/25 22:27 Pantoprazole Sodium (Pantoprazole 40 Mg Tab) 40 mg PO QAM [facility] Stop: 07/17/25 08:59 Last Admin: 06/21/25 10:38 Dose: 40 mg Potassium Chloride (Potassium Chloride Crtab 20 Meq Tabcr) 20 meq PO TID [facility] Stop: 06/22/25 10:00 Last Admin: 06/21/25 10:35 Dose: 20 meq Sertraline HCl (Sertraline Hcl 100 Mg Tablet) 100 mg PO QAM [facility] Stop: 07/21/25 08:59 Last Admin: 06/21/25 10:38 Dose: 100 mg Tamsulosin HCl (Tamsulosin Hcl 0.4 Mg Cap) 0.4 mg PO DAILY [facility] Stop: 07/17/25 08:59 Last Admin: 06/21/25 10:36 Dose: 0.4 mg PG Care Time/CCT Total # of Minutes Spent Total Time Spent with Patient: Total time spent is greater than 50% in coordination of care (as documented) at patient's floor/unit and/or counseling patient: Coding [place] [address] SUB INP/OBS CARE 2/35MIN Patient Type Established History Problem Focused Exam Problem Focused Medical Decision Making Low Complexity Diagnoses Counseling regarding goals of care Z71.89 Palliative care by specialist Z51.5
[2025-06-22] MEDS: CARBOHYDRATES FOR HYPOGLYCEMIA PO PRN (04:43)
[2025-06-22 06:22] LABS: Anion Gap 5.0 (3-11); Blood Urea Nitrogen 16.0 mg/dl (6-23); Calcium 8.1 mg/dl (8.6-10.3); Carbon Dioxide 25.0 mmol/L (21-32); Chloride 97.0 mmol/L (98-107); Creatinine Clr Calc Pharmacy 113.1 ml/min; Glucose 107.0 mg/dl (70-99(Fasting)); Magnesium 2.2 mg/dl (1.7-2.4); Potassium 4.0 mmol/L (3.5-5.1); Sodium 127.0 mmol/L (136-145)
[2025-06-22] MEDS: FUROSEMIDE 20 MG TAB PO SCH (12:26)
[2025-06-22] MEDS: SPIRONOLACTONE 25 MG TAB PO SCH (12:26)
--- NOTE | 2025-06-22 14:04 | Hospitalist Progress Note ---
Date of Service June 22, 2025 Assessment & Plan (1) Pulmonary embolism, bilateral: (2) Splenic infarction: (3) LV (left ventricular) mural thrombus: (4) Ischemic cardiomyopathy: (5) Acute on chronic heart failure with reduced ejection fraction (HFrEF, <= 40%): (6) Aspiration pneumonia: (7) Hypertension: (8) DM2 (diabetes mellitus, type 2): (9) Acute hypoxemic respiratory failure: (10) Hyponatremia: (11) Cerebrovascular small vessel disease: (12) Vascular dementia: Plan Patient 60-year-old gentleman presented with acute onset of shortness of breath due to pulmonary embolism and aspiration pneumonia and sepsis. Patient has recovered from this, tolerating anticoagulation Sodium has not improved with some diuresis. Completing course of oral antibiotics. Continuing with therapies Transition to oral Lasix and Aldactone in the setting of reduced ejection fr action Case management pursuing inpatient [facility], authorization pending Admission and Anticipated Discharge Date Admission Date: June 16, 2025 Subjective Patient offers no acute complaints. Nursing reports no acute issues overnight. He denies any chest pain or shortness of breath. Physical Exam Physical Exam: Constitutional: Alert, nontoxic HEENT: Mucous membranes moist. Lungs: Clear to auscultation, decreased, no wheezes rales or rhonchi CV: S1-S2, regular Abdomen: Soft, nontender, nondistended Extremities: Some edema lower extremities Neuro: No focal deficits Psych: Cooperative, normal mood Results & Data Results & Data Vital Signs (Past 12 Hours) Vital Signs Temp Pulse Resp BP Pulse Ox O2 Del Method 06/22/25 12:32 36.5 C 91 H 18 128/82 94 Room Air 06/22/25 08:15 36.6 C 91 H 20 109/79 95 Room Air 06/22/25 03:49 36.6 C 85 16 107/73 95 Room Air Diagnostic Findings Reviewed imaging, laboratory and diagnostic studies. Pertinent findings as below. Sodium 127 Creatinine 0.81 Glucose was reviewed (7) Hypertension Hypertension type: unspecified Qualified Code(s): I10 - Essential (primary) hypertension
[2025-06-22] MEDS: LANTUS PER UNIT CHARGE SQ SCH (21:31)
[2025-06-23 06:33] LABS: Anion Gap 6.0 (3-11); Blood Urea Nitrogen 17.0 mg/dl (6-23); Calcium 8.2 mg/dl (8.6-10.3); Carbon Dioxide 26.0 mmol/L (21-32); Chloride 95.0 mmol/L (98-107); Creatinine Clr Calc Pharmacy 122.1 ml/min; Glucose 81.0 mg/dl (70-99(Fasting)); Potassium 3.8 mmol/L (3.5-5.1); Sodium 127.0 mmol/L (136-145)
--- NOTE | 2025-06-23 11:23 | Hospitalist Progress Note ---
Date of Service June 23, 2025 Assessment & Plan (1) Pulmonary embolism, bilateral: (2) Splenic infarction: (3) LV (left ventricular) mural thrombus: (4) Ischemic cardiomyopathy: (5) Acute on chronic heart failure with reduced ejection fraction (HFrEF, <= 40%): (6) Aspiration pneumonia: (7) Hypertension: (8) DM2 (diabetes mellitus, type 2): (9) Acute hypoxemic respiratory failure: (10) Hyponatremia: (11) Cerebrovascular small vessel disease: (12) Vascular dementia: Plan Patient overall seems to be somewhat at his baseline and medically maximized on current medical regimen Continue current oral pills Continue therapies Yesterday did peer to peer review with insurance company did approve for alf facility rehab. Communication with case management, pursuing alf rehab options Continue to monitor electrolytes and renal function intermittently/as needed with diuretic use Continue oral anticoagulation indefinitely Reviewed glucoses, overall well-controlled, continue current insulin coverage Can discontinue antibiotics, completed full course Updated patient's brother, Jose, aware that we are looking for rehab placement Admission and Anticipated Discharge Date Admission Date: June 16, 2025 Subjective Patient denies any complaints. No shortness of breath. Still very weak and somewhat unmotivated Physical Exam Physical Exam: Constitutional: Asleep, easily awakened, slouched over in bed HEENT: Mucous membranes moist. Lungs: Crackles at bases improved CV: S1-S2, regular Abdomen: Soft, nontender, nondistended Extremities: Less edema Neuro: Chronic left-sided weakness Psych: Cooperative, normal mood Results & Data Results & Data Vital Signs (Past 12 Hours) Vital Signs Temp Pulse Resp BP Pulse Ox O2 Del Method 06/23/25 08:00 Room Air 06/23/25 07:55 36.9 C 87 22 134/84 96 Room Air Diagnostic Findings Reviewed imaging, laboratory and diagnostic studies. Pertinent findings as below. Sodium 127 Potassium 3.8 Creatinine 0.75 (7) Hypertension Hypertension type: unspecified Qualified Code(s): I10 - Essential (primary) hypertension
[2025-06-24] MEDS: DEXTROSE 50% 50 ML SYRINGE IV PRN (06:03)
--- NOTE | 2025-06-24 11:39 | Hospitalist Progress Note ---
Date of Service June 24, 2025 Assessment & Plan (1) Pulmonary embolism, bilateral: (2) Splenic infarction: (3) LV (left ventricular) mural thrombus: (4) Ischemic cardiomyopathy: (5) Acute on chronic heart failure with reduced ejection fraction (HFrEF, <= 40%): (6) Aspiration pneumonia: (7) Hypertension: (8) DM2 (diabetes mellitus, type 2): (9) Acute hypoxemic respiratory failure: (10) Hyponatremia: (11) Cerebrovascular small vessel disease: (12) Vascular dementia: Plan Mr. 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 Case is complicated by patient's depression and medication non-compliance. Acute hypoxic resp failure, multifactorial -> resolved Severe sepsis 2/2 bacterial pneumonia History of silent aspiration Biofire negative , CT revealed prominent areas of opacities in lungs Risk for pseudomonas given DM hx and comorbidities Changed ertapenem to cefepime, azithromycin and flagyl -> completed abx therapy 06/21 Incentive spirometry and flutter valve ordered, aspiration precautions Speech: patient already completed VFSS,aspiration with thin and thickened -Continue mouth care and encourage follow recommendations Bilateral pulmonary emboli Apical cardiac thrombus DVT in LLE Splenic infarct History of known cardiac thrombus iso HFrEF, recent noncompliance with Eliquis DVT with thrombophlebitis and left common femoral vein DVT Multiple pulm emboli noted Heparin drip for 48 hours, transitioned back to Eliquis with DVT loading dose Acute on chronic heart failure with reduced EF Ischemic cardiomyopathy, multivessel CAD Valvular heart disease (mild MR/TR) Resumed home regimen of Toprol, statin, aspirin Cardiology consulted prior - lisinopril, Imdur held. Recommended addition of lasix 20mg daily Spironolactone 25mg daily added in setting of reduced EF Monitor Hypoosmolar hyponatremia secondary to illness Na has plateaued -127 past 2 days FR added 1.8 L Monitor lytes in setting of diuretics above Hypothyroidism Elevated TSH likely iso noncompliance Resume prior dosing repeat in 4-6 weeks MDD Anxiety Palliative consulted on admission 11/14 request for hospice Discussed further with patient and brother, seeming passive SI however does endorse desire to improve Psych consulted 06/18- increased Abilify to 5mg daily, increased Zoloft to 100mg daily Peer to peer completed on 06/23, apprived for SNF rehab - appreciate CM with placement efforts Chronic anemia Stable Hypertension Relative hypotension initially 2/2 acute illness Have resumed home meds Hyperlipidemia continue statin CHARLEEN CPAP intolerance Consider overnight pulse ox when pneumonia improves for nocturnal oxygen prior to d/c History of CVA Continue statin, asa Chronic left sided weakness DM2 insulin requiring H/o medication noncompliance, well-controlled as recent hemoglobin A1c of 6.8 last January 2025 A1C now 9.4% 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 Jose Corbin, contact #[phone]. Care coordinated with Dr. Lyn Mathias spent a total of 45 minutes coordinating, documenting, and providing care for this patient excluding time spent in the performance of separately billed services or time spent by another provider/QHP. Admission and Anticipated Discharge Date Admission Date: June 16, 2025 Subjective Seen and examined in [facility]. Flat affect, denies any acute events overnight. Feels sore from laying in bed and encouraged to move to bedside chair. No F/C, CP or SOB. Tolerating diet. Review of Systems Review of Systems: At least ten systems reviewed and negative except as noted in the HPI. Physical Exam Physical Exam: Gen: WD/WN, NAD, resting in bed, A&Ox3, flat affect HEENT: Normocephalic, atraumatic, mucous membranes moist Lung: Clear to Auscultation bilaterally Heart: Regular rate, regular rhythm Abdomen: Soft, NT, ND Extremities: no edema Skin: Warm, no rash Results & Data Results & Data Vital Signs (Past 12 Hours) Vital Signs Temp Pulse Resp BP Pulse Ox O2 Del Method 06/24/25 08:30 36.8 C 85 18 118/83 94 Room Air 06/24/25 08:15 Room Air Diagnostic Findings Chest X-Ray 06/16/25 16:39 Chest radiograph, one view History: Dyspnea Comparison: None Findings: Single AP view of the chest performed. No focal consolidation or pleural effusion. No pneumothorax. The cardiomediastinal silhouette is within normal limits. Normal pulmonary vascularity. No evidence for lymphadenopathy. No visualized bony or soft tissue abnormality. Impression: Normal chest radiograph Electronically signed by Martinez Dugan 06-16-2025 6:06 PM Abdomen/Pelvis CT 06/16/25 18:07 EXAMINATION: CT of the abdomen and pelvis performed after the administration of IV contrast TECHNIQUE: Helical CT images from the lung bases through the symphysis pubis were obtained with contrast. Coronal and sagittal reformatted images were generated at a workstation for further assessment. Dose reduction techniques were achieved by using automatic exposure control and/or adjustment of mA and/or kV according to patient size and/or use of iterative reconstruction technique. COMPARISON: None HISTORY: Abdominal pain FINDINGS: Lower chest: The heart is enlarged. Dilated left ventricular cavity. An area of low attenuating density at the left ventricular apex is seen, measuring 19 mm in diameter most consistent with LV thrombus. There are small pleural effusions bilaterally. Prominent areas of consolidative opacity throughout both lung base bilateral segmental and subsegmental pulmonary emboli. Liver: No suspicious liver lesions. Portal veins appear patent. Gallbladder: No gallstones. No evidence of acute cholecystitis. The common bile duct stent is in place. Tiny focus of air in the gallbladder related to the stent. Spleen: Normal size. Focal wedge-shaped area of hypoenhancement is seen near the superior pole. Pancreas: No suspicious pancreatic lesions. The pancreatic duct is not dilated. Adrenal glands: No adrenal nodules. Kidneys: No hydronephrosis or obstructing renal stones. Bladder / Pelvic organs: Unremarkable. Bowel: No bowel obstruction. No abnormal bowel wall thickening. The appendix is unremarkable. Lymph nodes: No retroperitoneal, mesenteric, or pelvic lymphadenopathy. Peritoneum / Retroperitoneum: No free fluid or air within the abdomen. Vessels: No infrarenal aortic aneurysm. Bones and soft tissues: No suspicious lesion in the bones. IMPRESSION: Bilateral pulmonary emboli are partially seen. There are prominent areas of consolidative opacity throughout the lung bases, suspicious for infarction in the setting of pulmonary emboli, versus possibly infection. Cardiomegaly with dilated left ventricular cavity, with an area of low density material at the LV apex, consistent with thrombus. A wedge-shaped area of hypoenhancement at the superior spleen is consistent with splenic infarct. Electronically signed by Martinez Dugan 06-16-2025 8:02 PM Venous Doppler Study 06/16/25 21:22 CR Exam(s): US VENOUS BILATERAL LOWER EXTREMITIES EXAM: US Duplex Bilateral Lower Extremities Veins CLINICAL HISTORY: Leg swelling. TECHNIQUE: Real-time duplex ultrasound scan of the bilateral lower extremity veins integrating B-mode two-dimensional vascular structure, Doppler spectral analysis, color flow Doppler imaging and compression. COMPARISON: No relevant prior studies available. FINDINGS: Right deep veins: Unremarkable. No Deep vein thrombosis in the right common femoral, femoral, proximal deep femoral or popliteal veins. The veins demonstrate normal color flow, are normally compressible, with normal phasic flow and/or augmentation response. Right superficial veins: Unremarkable. No thrombus in the visualized right great saphenous vein. Left deep veins: Nonocclusive deep venous thrombosis of the left common femoral vein. The left superficial femoral vein, popliteal vein and veins calf are patent. Left superficial veins: There is thrombophlebitis of the left greater saphenous vein. Soft tissues: Nonspecific subcutaneous edema bilaterally. No popliteal cyst. IMPRESSION: 1. Nonocclusive deep venous thrombosis of the left common femoral vein. 2. There is thrombophlebitis of the left greater saphenous vein. 3. Nonspecific subcutaneous edema bilaterally. 4. No deep vein thrombosis of the right lower extremity. Communications: Verify Receipt Electronically signed by: Brenda Carolina MD 06/17/25 05:12 AM Chest X-Ray 06/17/25 06:33 EXAM: XR chest 1V portable CLINICAL HISTORY: sob TECHNIQUE: Radiograph of chest was acquired. 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 Inhomogeneous opacities noted involving bilateral lower zones- possibility of congestive changes/pneumonitis. Rest of both lungs are clear. The cardiomediastinal silhouette is within normal limits. No acute osseous abnormality. IMPRESSION: Blunting of bilateral costophrenic angle - suggestive of pleural effusion.- slightly increased Inhomogeneous opacities noted involving bilateral lower zones- possibility of congestive changes/pneumonitis.- increased Electronically signed by Louie Quevedo 06-17-2025 07:[address] 06/20/25 05:52 EXAM: CT head/brain wo con CLINICAL HISTORY: weakness, noac TECHNIQUE: Multiple axial images are obtained from the skull base to the vertex without contrast. CT scan was performed according to ALARA (as low as reasonably achievable). COMPARISON: APRIL 24/2025 16:38:00 CS. FINDINGS: There is cerebral atrophy. No evidence of space occupying lesion, hemorrhage, edema, mass effect, midline shift, extra axial collection, or hydrocephalus is noted. Basal cisterns are symmetric and normal in size and configuration. There are scattered periventricular hypodensities as can be seen with chronic microvascular ischemic changes. The fang-white matter differentiation is preserved. Visualized paranasal sinuses and mastoid air cells are well aerated. Orbital contents are within normal limits. Bony structures are intact. IMPRESSION: 1. No evidence of acute intracranial abnormality is demonstrated. 2. Chronic microvascular ischemic changes.-stable. 3. Cerebral atrophy.-stable. Electronically signed by Louie Quevedo 06-20-2025 06:39 AM (7) Hypertension Hypertension type: unspecified Qualified Code(s): I10 - Essential (primary) hypertension
[2025-06-25 06:06] LABS: Hematocrit (blood only) 32.6 % (42.0-52.0); Hemoglobin 10.5 g/dl (14.0-18.0); Mean Corpuscular Hemoglobin 23.6 pg (25.0-34.0); Mean Corpuscular Volume 73.4 fL (80.0-100.0); Platelet Count 253 K/uL (130-400); RDW Standard Deviation 42.9 fL (36.4-46.3); Red Blood Count 4.44 M/uL (4.70-6.10); White Blood Count 12.18 K/ul (4.8-10.8)
[2025-06-25 06:24] LABS: Anion Gap 8.0 (3-11); Blood Urea Nitrogen 16.0 mg/dl (6-23); Calcium 8.1 mg/dl (8.6-10.3); Carbon Dioxide 24.0 mmol/L (21-32); Chloride 95.0 mmol/L (98-107); Creatinine Clr Calc Pharmacy 127.2 ml/min; Glucose 79.0 mg/dl (70-99(Fasting)); Potassium 3.8 mmol/L (3.5-5.1); Sodium 127.0 mmol/L (136-145)
--- NOTE | 2025-06-25 07:20 | Hospitalist Progress Note ---
Date of Service June 25, 2025 Assessment & Plan (1) Pulmonary embolism, bilateral: (2) Splenic infarction: (3) LV (left ventricular) mural thrombus: (4) Ischemic cardiomyopathy: (5) Acute on chronic heart failure with reduced ejection fraction (HFrEF, <= 40%): (6) Aspiration pneumonia: (7) Hypertension: (8) DM2 (diabetes mellitus, type 2): (9) Acute hypoxemic respiratory failure: (10) Hyponatremia: (11) Cerebrovascular small vessel disease: (12) Vascular dementia: Plan Mr. 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 Case is complicated by patient's depression and medication non-compliance. Acute hypoxic resp failure, multifactorial -> resolved Severe sepsis 2/2 bacterial pneumonia History of silent aspiration Admission Respiratory Biofire panel negative , CT revealed prominent areas of opacities in lungs Risk for pseudomonas given DM hx and comorbidities Changed ertapenem to cefepime, azithromycin and flagyl -> completed abx therapy 06/21 WBC trended down to 12 today from 19 on 06/17 Encourage incentive spirometer and flutter valve use. Continue mucinex Add Flonase for reported nasal congestion and post nasal drip H/O video swallow study in 12/2024 with silent aspiration and was recommended Minced and moist, thin liquids, oral mouth care BID Bilateral pulmonary emboli Apical cardiac thrombus DVT in LLE Splenic infarct History of known cardiac thrombus iso HFrEF, found on echo 04/25/2025, Pt with recent noncompliance with Eliquis On This admission DVT with thrombophlebitis and left common femoral vein DVT & Multiple pulm emboli noted Heparin drip for 48 hours, transitioned back to Eliquis with DVT loading dose on 06/19 Per review was on Eliquis 10mg BID x 5 days and appears order fell off and did not receive Eliquis yesterday 06/24. Eliquis 10mg BID ordered for 4 additional doses to complete 7 days then to begin Eliquis 5mg BID on 06/27 Acute on chronic heart failure with reduced EF Ischemic cardiomyopathy, multivessel CAD Valvular heart disease (mild MR/TR) 04/25/2025 echo: EF: 20-25%, diffuse hypokinesis to akinesis, moderate size apical thrombus, mild aortic valve sclerosis without stenosis, mild mitral regurgitation, mild tricuspid regurgitation, moderate left to right interatrial shunt, grade III diastolic dysfunction, consistent with markedly increased left atrial pressure On admission home regimen of metoprolol succinate, aspirin, rosuvastatin was resumed Initially noted to be overloaded and was given lasix 20mg IV x 1 dose on 06/17/25 per cardiology recommendations. Volume status seemed to improve. 06/22/25 started on spironolactone 25 mg daily and was started on Lasix 20 mg daily orally Cardiology had recommended holding home lisinopril and isosorbide Today again examines volume overloaded CXR today with RLL infiltrate, cardiomegaly and mild pulmonary edema, small bilateral pleural effusions Will give dose IV lasix today. Plan to hold oral spironolactone and hold oral lasix. Monitor I's &O's and daily weights for further diuretic adjustment Give dose of potassium today Admission BNP was 968 Recheck BMP, magnesium, BNP in am Plan for CXR in am Hyponatremia Thought secondary to Hypoosmolar hyponatremia secondary to illness, SIADH, hypothyroidism Na has 127 past 3 days from low of 122 on 06/17 FR 1.8 L Hypothyroidism TSH: 18 Elevated TSH likely secondary to noncompliance levothyroxine Resume prior dosing Will need repeat TSH in 4-6 weeks MDD Anxiety Palliative consulted on admission / request for hospice Discussed further with patient and brother, seeming passive SI however does endorse desire to improve Psych consulted 06/18- increased Abilify to 5mg daily, increased Zoloft to 100mg daily Peer to peer completed on 06/23, approved for SNF rehab - appreciate CM with placement efforts Chronic anemia Hgb Stable Continue to monitor H&H Hypertension Initially relative hypotension 2/2 acute illness Home lisinopril and isosorbide have been on hold Hyperlipidemia continue statin CHARLEEN CPAP intolerance Consider overnight pulse ox when pneumonia improves for nocturnal oxygen prior to d/c History of CVA Continue statin, asa Chronic left sided weakness DM2 insulin requiring H/o medication noncompliance, previously was well-controlled as recent hemoglobin A1c of 6.8 last January 2025 06/17/25 A1C: 9.4% 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 Jose Corbin, contact #[phone]. Care coordinated with Dr. Keita I spent a total of 45 minutes coordinating, documenting, and providing care for this patient excluding time spent in the performance of separately billed services or time spent by another provider/QHP. Admission and Anticipated Discharge Date Admission Date: June 16, 2025 Supervising Physician Co-Signing Physician Notes Patient is seen and examined at bedside. Admits to have ongoing cough associated with dyspnea on minimal exertion. Also states having nasal congestion. Chest x-ray today showed right lower lobe pneumonia, mild pulmonary edema and small bilateral pleural effusions. On exam patient is overweight, chronically appearing, no apparent distress, normocephalic atraumatic, EOMI, decreased breath sounds, bilateral crackles, S1-S2, no murmur,+ pedal edema, abdomen abdomen soft, nontender, alert, awake, oriented, grossly no focal deficits. Currently being managed for Acute respiratory failure with hypoxia secondary to pneumonia, likely due to aspiration, bilateral PE, apical thrombus, left lower extremity DVT. Agree with continuing Eliquis for anticoagulation. Currently saturating well on room air. Patient completed antibiotic course. Persistent respiratory symptoms likely due to volume overload. Agree with giving 1 dose of IV Lasix today, will monitor volume status closely and reassess diuretics need. Continue pulmonary hygiene. Monitor electrolytes closely. Sodium level improved to 127, monitor. Will need rehab placement when stable. I personally interviewed and examined the patient at bedside. I have reviewed the advanced practitioner's documentation on the date of service referred in note and agree with plan. Patient's care is coordinated with Angela Nix. Please refer to the documentation above for details of patient's presentation and for discussion of other issues. I spent a total [id number] coordinating, documenting, and providing care for this patient excluding time spent in the performance of separately billed services or time spent by another provider/QHP. Subjective Patient seen and examined sitting up in bed. Reports continued cough that he feels is same as upon admission. States not able to bring anything up. He reports "always" have nasal congestion and post nasal drip. Per his reports he is usually SOB and he doesn't feel any increased SOB per his report. No fevers recorded. He reports tired of sitting and lying in bed and buttocks getting sore from sitting. He continues to report feeling down and depressed. He states continued generalized weakness. Has Benavides catheter in place. He is unaware of any extremity edema. Denies N/V/D, BECERRA, dizziness, CP, palpitations, hemoptysis, sore throat, abdominal pain. Review of Systems Review of Systems: All systems reviewed & are unremarkable except as noted in HPI & below Physical Exam Physical Exam: General: Chronic ill appearing, obese male Head: normocephalic, atraumatic Eyes: conjunctiva non-injected, anicteric ENT: normal inspection external ears, nose, mucous membranes moist Neck: supple, trachea midline Lungs: no respiratory distress, 95% on RA, +coarse breath sounds CV: RRR, 1+ pretibial edema Abd: normal BS, soft, non-tender Ext: no cyanosis, no calf tenderness Neuro: Alert, oriented to person and place, +diffuse weakness, flat affect Skin: warm, dry Results & Data Results & Data Vital Signs (Past 12 Hours) Vital Signs Temp Pulse Resp BP Pulse Ox O2 Del Method 06/25/25 07:03 36.6 C 80 16 113/77 95 Room Air 06/24/25 22:57 36.8 C 83 12 121/82 95 Room Air 06/24/25 19:30 Room Air Laboratory Results Short CBC 06/25/25 Range/Units 05:28 WBC 12.18 H (4.8-10.8) K/ul Hgb 10.5 L (14.0-18.0) g/dl Hct 32.6 L (42.0-52.0) % Plt Count 253 (130-400) K/uL [facility] 06/25/25 05:28 Sodium 127 L Potassium 3.8 Chloride 95 L Carbon Dioxide 24 BUN 16 Creatinine 0.72 Glucose 79 Calcium 8.1 L Diagnostic Findings Chest X-Ray 06/25/25 10:19 Technique: A frontal view of the chest was obtained Comparison is made to the prior examination dated 06/17/2025 Findings: There is worsened right lower lobe alveolar consolidation, consistent with pneumonia. There is also diffuse interstitial prominence that may be due to mild pulmonary edema. The heart is enlarged. No definite pneumothorax is seen. There are small bilateral pleural effusions No fracture is noted. No foreign body is seen Impression: 1. Right lower lobe pneumonia 2. Cardiomegaly and mild pulmonary edema 3. Small bilateral pleural effusions ACT 112: Positive. There are findings on this exam that require communication between the performing entity and the patient following Patient Test Result Information Act ([place] ACT 112) guidelines. Electronically signed by Lawrence Jung 06-25-2025 10:52 AM (7) Hypertension Hypertension type: unspecified Qualified Code(s): I10 - Essential (primary) hypertension
--- NOTE | 2025-06-25 10:53 | XRay Report ---
Technique: A frontal view of the chest was obtained Comparison is made to the prior examination dated 06/17/2025 Findings: There is worsened right lower lobe alveolar consolidation, consistent with pneumonia. There is also diffuse interstitial prominence that may be due to mild pulmonary edema. The heart is enlarged. No definite pneumothorax is seen. There are small bilateral pleural effusions No fracture is noted. No foreign body is seen Impression: 1. Right lower lobe pneumonia 2. Cardiomegaly and mild pulmonary edema 3. Small bilateral pleural effusions ACT 112: Positive. There are findings on this exam that require communication between the performing entity and the patient following Patient Test Result Information Act ([place] ACT 112) guidelines. Electronically signed by Lawrence Jung 06-25-2025 10:52 AM
[2025-06-25] MEDS: APIXABAN 5 MG TABLET PO SCH (11:16)
[2025-06-25] MEDS: POTASSIUM CHLORIDE 20 MEQ/15 ML UDC PO ONE (12:37)
[2025-06-25] MEDS: FUROSEMIDE 40 MG/4 ML VIAL IV ONE (14:03)
[2025-06-25] MEDS: LANTUS PER UNIT CHARGE SQ SCH (20:24)
[2025-06-26 06:11] LABS: Hematocrit (blood only) 33.5 % (42.0-52.0); Hemoglobin 11.1 g/dl (14.0-18.0); Immature Granulocytes # (auto) 0.15 K/uL (0.01-0.20); Immature Granulocytes % (auto) 1.2 %; Mean Corpuscular Hemoglobin 24.5 pg (25.0-34.0); Mean Corpuscular Volume 74.0 fL (80.0-100.0); Platelet Count 262 K/uL (130-400); RDW Standard Deviation 42.7 fL (36.4-46.3); Red Blood Count 4.53 M/uL (4.70-6.10); White Blood Count 12.32 K/ul (4.8-10.8)
[2025-06-26 06:32] LABS: Anion Gap 5.0 (3-11); Blood Urea Nitrogen 19.0 mg/dl (6-23); Calcium 8.0 mg/dl (8.6-10.3); Carbon Dioxide 27.0 mmol/L (21-32); Chloride 96.0 mmol/L (98-107); Creatinine Clr Calc Pharmacy 110.4 ml/min; Glucose 142.0 mg/dl (70-99(Fasting)); Magnesium 2.1 mg/dl (1.7-2.4); Potassium 4.0 mmol/L (3.5-5.1); Sodium 128.0 mmol/L (136-145)
--- NOTE | 2025-06-26 07:15 | Hospitalist Progress Note ---
Date of Service June 26, 2025 Assessment & Plan (1) Pulmonary embolism, bilateral: (2) Splenic infarction: (3) LV (left ventricular) mural thrombus: (4) Ischemic cardiomyopathy: (5) Acute on chronic heart failure with reduced ejection fraction (HFrEF, <= 40%): (6) Aspiration pneumonia: (7) Hypertension: (8) DM2 (diabetes mellitus, type 2): (9) Acute hypoxemic respiratory failure: (10) Hyponatremia: (11) Cerebrovascular small vessel disease: (12) Vascular dementia: Plan Mr. 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 Case is complicated by patient's depression and medication non-compliance. Acute hypoxic resp failure, multifactorial -> resolved Severe sepsis 2/2 bacterial pneumonia History of silent aspiration Admission Respiratory Biofire panel negative , CT revealed prominent areas of opacities in lungs Risk for pseudomonas given DM hx and comorbidities Was on cefepime, azithromycin and flagyl -> completed abx therapy 06/21 WBC trended down to 12 today and yesterday from 19 on 06/17 Today procalcitonin WNL. Continues to be afebrile. No further antibiotics as this time Encourage incentive spirometer and flutter valve use. Continue mucinex Flonase added yesterday for reported nasal congestion and post nasal drip H/O video swallow study in 12/2024 with silent aspiration and was recommended Minced and moist, thin liquids, oral mouth care BID Bilateral pulmonary emboli Apical cardiac thrombus DVT in LLE Splenic infarct History of known cardiac thrombus iso HFrEF, found on echo 04/25/2025, Pt with recent noncompliance with Eliquis On This admission DVT with thrombophlebitis and left common femoral vein DVT & Multiple pulm emboli noted Heparin drip for 48 hours, transitioned back to Eliquis with DVT loading dose on 06/19 Per review was on Eliquis 10mg BID x 5 days and appears order fell off and did not receive Eliquis on 06/24. Eliquis 10mg BID ordered for 4 additional doses to complete 7 days then to begin Eliquis 5mg BID on 06/27 Acute on chronic heart failure with reduced EF Ischemic cardiomyopathy, multivessel CAD Valvular heart disease (mild MR/TR) 04/25/2025 echo: EF: 20-25%, diffuse hypokinesis to akinesis, moderate size apical thrombus, mild aortic valve sclerosis without stenosis, mild mitral regurgitation, mild tricuspid regurgitation, moderate left to right interatrial shunt, grade III diastolic dysfunction, consistent with markedly increased left atrial pressure On admission home regimen of metoprolol succinate, aspirin, rosuvastatin was resumed Initially noted to be overloaded and was given lasix 20mg IV x 1 dose on 06/17/25 per cardiology recommendations. Volume status seemed to improve. 06/22/25 was started on spironolactone 25 mg daily and was started on Lasix 20 mg daily orally Cardiology had recommended holding home lisinopril and isosorbide which continues to be on hold. 06/25/25 pt volume overloaded and was given 40mg Lasix IV Today 06/26/25 with reported decreased SOB and CXR showing improvement this morning Will give Lasix 20mg IV once today and monitor. Continue to hold oral spironolactone that was previously started. Tomorrow will need to reassess and m ay consider resuming previously started oral lasix or additional IV diuretic Monitor I's &O's and daily weights for further diuretic adjustment Admission BNP was 968. Today was 5001 Recheck BMP, magnesium in am Hyponatremia Thought secondary to Hypoosmolar hyponatremia secondary to illness, SIADH, hypothyroidism Na 128 today, had been 127 previous 3 days from low of 122 on 06/17 FR 1.8 L Monitor Hypothyroidism TSH: 18 Elevated TSH likely secondary to noncompliance levothyroxine Resume prior dosing Will need repeat TSH in 4-6 weeks MDD Anxiety Palliative consulted on admission / request for hospice Discussed further with patient and brother, seeming passive SI however does endorse desire to improve Psych consulted 06/18- increased Abilify to 5mg daily, increased Zoloft to 100mg daily Peer to peer completed on 06/23, approved for SNF rehab - appreciate CM with placement efforts Chronic anemia Hgb Stable Continue to monitor H&H Hypertension Initially relative hypotension 2/2 acute illness Home lisinopril and isosorbide have been on hold Hyperlipidemia continue statin CHARLEEN CPAP intolerance Consider overnight pulse ox when pneumonia and volume status improves for nocturnal oxygen prior to d/c History of CVA Continue statin, asa Chronic left sided weakness DM2 insulin requiring H/o medication noncompliance, previously was well-controlled as recent hemoglobin A1c of 6.8 last January 2025 06/17/25 A1C: 9.4% Basal bolus insulin for now, monitor BSGs for further adjustment money examiner DVT prophylaxis: Eliquis Code: DNR/DNI Disposition: uncertain at this time. Qualified for SNF rehab and is awaiting bed Patient brother - Mr. Jose Corbin, contact #[phone]. Care coordinated with Dr. Keita I spent a total of 40 minutes coordinating, documenting, and providing care for this patient excluding time spent in the performance of separately billed services or time spent by another provider/QHP. Admission and Anticipated Discharge Date Admission Date: June 16, 2025 Supervising Physician Co-Signing Physician Notes Patient is seen and examined at bedside. Less dyspnea, cough today. Reports constipation and some abdominal discomfort. Feels tired. Also states having poor sleep overnight. Chest x-ray today showed slight improvement of pleural effusion. KUB showed severe constipation, no signs of bowel obstruction. On exam patient is overweight, chronically appearing, no apparent distress, normocephalic atraumatic, EOMI, decreased breath sounds, bilateral crackles, S1-S2, no murmur,+ pedal edema, abdomen abdomen soft, nontender, alert, awake, oriented, grossly no focal deficits. Currently being managed for Acute respiratory failure with hypoxia secondary to pneumonia, likely due to aspiration, bilateral PE, apical thrombus, left lower extremity DVT. Agree with continuing Eliquis for anticoagulation. Currently saturating well on room air. Patient completed antibiotic course. Persistent respiratory symptoms due to volume overload. Agree with giving additional IV Lasix today. Volume status improved on repeat chest x-ray. Continue pulmonary hygiene. Monitor electrolytes closely. Sodium level improved to 128, monitor. Continue fluid restriction. Monitor electrolytes. Started on bowel regimen for constipation. Will need rehab placement when stable. I personally interviewed and examined the patient at bedside. I have reviewed the advanced practitioner's documentation on the date of service referred in note and agree with plan. Patient's care is c oordinated with Angela Moore PA-C. Please refer to the documentation above for details of patient's presentation and for discussion of other issues. I spent a total [id number] coordinating, documenting, and providing care for this patient excluding time spent in the performance of separately billed services or time spent by another provider/QHP. Subjective Sitting up in bedside chair. Overall more interactive and conversant with provider today. States still feeling tired and sleepy and states didn't sleep well last night. He reports continued non-productive cough and doesn't feel any change during hospital course. He states overall feeling less SOB today. He is unaware of any extremity edema stating he doesn't look at his legs. He states ate M&M's this morning. States didn't have BM for multiple days and unsure when last had BM. Continues to remain afebrile, vitals remain stable overnight. Denies chills, diaphoresis, N/V/D, BECERRA, dizziness, CP, palpitations, hemoptysis, sore throat, abdominal pain, rashes. Has Benavides catheter in place. Review of Systems Review of Systems: All systems reviewed & are unremarkable except as noted in HPI & below Physical Exam Physical Exam: General: Chronic ill appearing, obese male Head: normocephalic, atraumatic Eyes: conjunctiva non-injected, anicteric ENT: normal inspection external ears, nose, mucous membranes moist Neck: supple, trachea midline Lungs: no respiratory distress, 97% on RA, +rales bases bilaterally (auscultated more clearly today as patient with improved effort in participation on exam) CV: RRR, 1+ pretibial edema Abd: normal BS, soft, non-tender to palpation Ext: no cyanosis, no calf tenderness Neuro: Alert, oriented to person and place, +diffuse weakness, flat affect Skin: warm, dry Results & Data Results & Data Vital Signs (Past 12 Hours) Vital Signs Temp Pulse Pulse Resp BP Pulse Ox O2 Del Method 06/26/25 07:02 36.5 C 80 16 104/73 97 Room Air 06/25/25 22:53 36.3 C L 76 18 109/73 94 Room Air 06/25/25 20:25 Room Air Laboratory Results Short CBC 06/26/25 Range/Units 05:49 WBC 12.32 H (4.8-10.8) K/ul Hgb 11.1 L (14.0-18.0) g/dl Hct 33.5 L (42.0-52.0) % Plt Count 262 (130-400) K/uL BMP 06/26/25 05:49 Sodium 128 L Potassium 4.0 Chloride 96 L Carbon Dioxide 27 BUN 19 Creatinine 0.83 Glucose 142 H Calcium 8.0 L Diagnostic Findings Chest X-Ray 06/16/25 16:39 Chest radiograph, one view History: Dyspnea Comparison: None Findings: Single AP view of the chest performed. No focal consolidation or pleural effusion. No pneumothorax. The cardiomediastinal silhouette is within normal limits. Normal pulmonary vascularity. No evidence for lymphadenopathy. No visualized bony or soft tissue abnormality. Impression: Normal chest radiograph Electronically signed by Martinez Dugan 06-16-2025 6:06 PM Abdomen/Pelvis CT 06/16/25 18:07 EXAMINATION: CT of the abdomen and pelvis performed after the administration of IV contrast TECHNIQUE: Helical CT images from the lung bases through the symphysis pubis were obtained with contrast. Coronal and sagittal reformatted images were generated at a workstation for further assessment. Dose reduction techniques were achieved by using automatic exposure control and/or adjustment of mA and/or kV according to patient size and/or use of iterative reconstruction technique. COMPARISON: None HISTORY: Abdominal pain FINDINGS: Lower chest: The heart is enlarged. Dilated left ventricular cavity. An area of low attenuating density at the left ventricular apex is seen, measuring 19 mm in diameter most consistent with LV thrombus. There are small pleural effusions bilaterally. Prominent areas of consolidative opacity throughout both lung base bilateral segmental and subsegmental pulmonary emboli. Liver: No suspicious liver lesions. Portal veins appear patent. Gallbladder: No gallstones. No evidence of acute cholecystitis. The common bile duct stent is in place. Tiny focus of air in the gallbladder related to the stent. Spleen: Normal size. Focal wedge-shaped area of hypoenhancement is seen near the superior pole. Pancreas: No suspicious pancreatic lesions. The pancreatic duct is not dilated. Adrenal glands: No adrenal nodules. Kidneys: No hydronephrosis or obstructing renal stones. Bladder / Pelvic organs: Unremarkable. Bowel: No bowel obstruction. No abnormal bowel wall thickening. The appendix is unremarkable. Lymph nodes: No retroperitoneal, mesenteric, or pelvic lymphadenopathy. Peritoneum / Retroperitoneum: No free fluid or air within the abdomen. Vessels: No infrarenal aortic aneurysm. Bones and soft tissues: No suspicious lesion in the bones. IMPRESSION: Bilateral pulmonary emboli are partially seen. There are prominent areas of consolidative opacity throughout the lung bases, suspicious for infarction in the setting of pulmonary emboli, versus possibly infection. Cardiomegaly with dilated left ventricular cavity, with an area of low density material at the LV apex, consistent with thrombus. A wedge-shaped area of hypoenhancement at the superior spleen is consistent with splenic infarct. Electronically signed by Martinez Dugan 06-16-2025 8:02 PM Venous Doppler Study 06/16/25 21:22 CR Exam(s): US VENOUS BILATERAL LOWER EXTREMITIES EXAM: US Duplex Bilateral Lower Extremities Veins CLINICAL HISTORY: Leg swelling. TECHNIQUE: Real-time duplex ultrasound scan of the bilateral lower extremity veins integrating B-mode two-dimensional vascular structure, Doppler spectral analysis, color flow Doppler imaging and compression. COMPARISON: No relevant prior studies available. FINDINGS: Right deep veins: Unremarkable. No Deep vein thrombosis in the right common femoral, femoral, proximal deep femoral or popliteal veins. The veins demonstrate normal color flow, are normally compressible, with normal phasic flow and/or augmentation response. Right superficial veins: Unremarkable. No thrombus in the visualized right great saphenous vein. Left deep veins: Nonocclusive deep venous thrombosis of the left common femoral vein. The left superficial femoral vein, popliteal vein and veins calf are patent. Left superficial veins: There is thrombophlebitis of the left greater saphenous vein. Soft tissues: Nonspecific subcutaneous edema bilaterally. No popliteal cyst. IMPRESSION: 1. Nonocclusive deep venous thrombosis of the left common femoral vein. 2. There is thrombophlebitis of the left greater saphenous vein. 3. Nonspecific subcutaneous edema bilaterally. 4. No deep vein thrombosis of the right lower extremity. Communications: Verify Receipt Electronically signed by: Brenda Carolina MD 06/17/25 05:12 AM Chest X-Ray 06/17/25 06:33 EXAM: XR chest 1V portable CLINICAL HISTORY: sob TECHNIQUE: Radiograph of chest was acquired. COMPARISON: 06/16/2025 16:37:00 [employer] FINDINGS: Blunting of bilateral costophrenic angle - suggestive of pleural effusion. Inhomogeneous opacities noted involving bilateral lower zones- possibility of congestive changes/pneumonitis. Rest of both lungs are clear. The cardiomediastinal silhouette is within normal limits. No acute osseous abnormality. IMPRESSION: Blunting of bilateral costophrenic angle - suggestive of pleural effusion.- slightly increased Inhomogeneous opacities noted involving bilateral lower zones- possibility of congestive changes/pneumonitis.- increased Electronically signed by Louie Quevedo 06-17-2025 07:[address] 06/20/25 05:52 EXAM: CT head/brain wo con CLINICAL HISTORY: weakness, noac TECHNIQUE: Multiple axial images are obtained from the skull base to the vertex without contrast. CT scan was performed according to ALARA (as low as reasonably achievable). COMPARISON: APRIL 24/2025 16:38:00 CS. FINDINGS: There is cerebral atrophy. No evidence of space occupying lesion, hemorrhage, edema, mass effect, midline shift, extra axial collection, or hydrocephalus is noted. Basal cisterns are symmetric and normal in size and configuration. There are scattered periventricular hypodensities as can be seen with chronic microvascular ischemic changes. The fang-white matter differentiation is preserved. Visualized paranasal sinuses and mastoid air cells are well aerated. Orbital contents are within normal limits. Bony structures are intact. IMPRESSION: 1. No evidence of acute intracranial abnormality is demonstrated. 2. Chronic microvascular ischemic changes.-stable. 3. Cerebral atrophy.-stable. Electronically signed by Louie Quevedo 06-20-2025 06:39 AM Chest X-Ray 06/25/25 10:19 Technique: A frontal view of the chest was obtained Comparison is made to the prior examination dated 06/17/2025 Findings: There is worsened right lower lobe alveolar consolidation, consistent with pneumonia. There is also diffuse interstitial prominence that may be due to mild pulmonary edema. The heart is enlarged. No definite pneumothorax is seen. There are small bilateral pleural effusions No fracture is noted. No foreign body is seen Impression: 1. Right lower lobe pneumonia 2. Cardiomegaly and mild pulmonary edema 3. Small bilateral pleural effusions ACT 112: Positive. There are findings on this exam that require communication between the performing entity and the patient following Patient Test Result Information Act ([place] ACT 112) guidelines. Electronically signed by Lawrence Jung 06-25-2025 10:52 AM Chest X-Ray 06/26/25 07:00 EXAM: XR chest 1V portable CLINICAL HISTORY: Recheck CHF. TECHNIQUE: X-ray images of the chest were obtained in AP projections. COMPARISON: 06/25/2025 FINDINGS: Pulmonary Parenchyma: Bilateral lower and mid zone areas of inhomogeneous opacification with blunting of costophrenic angles suggestive of pleural effusion. Bilateral parahilar congestion. Heart and Mediastinum: Enlarged cardiac silhouette. Bony Thorax: Bony thorax appears intact without fractures or deformities. Soft Tissues: Soft tissues overlying the chest wall are unremarkable. IMPRESSION: Bilateral lower zone areas of inhomogeneous opacification with blunting of costophrenic angles suggestive of pleural effusion (slight improvement). Electronically signed by Robson Benoit 06-26-2025 09:20 AM (7) Hypertension Hypertension type: unspecified Qualified Code(s): I10 - Essential (primary) hypertension
[2025-06-26] MEDS: ROSUVASTATIN CALCIUM 10 MG TAB PO SCH (08:06)
[2025-06-26] MEDS: FLUTICASONE PROPIONATE NA SPR 16 GM BTL SCH (08:09)
[2025-06-26] MEDS: LANTUS PER UNIT CHARGE SQ SCH (08:14)
[2025-06-26] MEDS ORDERED: APIXABAN 5 MG TABLET PO SCH (09:00)
--- NOTE | 2025-06-26 09:21 | XRay Report ---
EXAM: XR chest 1V portable CLINICAL HISTORY: Recheck CHF. TECHNIQUE: X-ray images of the chest were obtained in AP projections. COMPARISON: 06/25/2025 FINDINGS: Pulmonary Parenchyma: Bilateral lower and mid zone areas of inhomogeneous opacification with blunting of costophrenic angles suggestive of pleural effusion. Bilateral parahilar congestion. Heart and Mediastinum: Enlarged cardiac silhouette. Bony Thorax: Bony thorax appears intact without fractures or deformities. Soft Tissues: Soft tissues overlying the chest wall are unremarkable. IMPRESSION: Bilateral lower zone areas of inhomogeneous opacification with blunting of costophrenic angles suggestive of pleural effusion (slight improvement). Electronically signed by Robson Benoit 06-26-2025 09:20 AM
[2025-06-26] MEDS: POTASSIUM CHLORIDE 20 MEQ/15 ML UDC PO ONE (11:56)
[2025-06-26] MEDS: FUROSEMIDE INJ 20 MG/2 ML VIAL IV ONE (11:58)
[2025-06-26] MEDS: POLYETHYLENE (MIRALAX) 17 GM PACK PO SCH ×2 (12:59)
[2025-06-26] MEDS: DOCUSATE SODIUM 100 MG CAP PO SCH (12:59)
[2025-06-26] MEDS: LEVALBUTEROL 1.25 MG/3 ML NEB NEB PRN (13:17)
--- NOTE | 2025-06-26 14:27 | XRay Report ---
Exam: KUB/abdomen one view. Reason for exam: Abdomen pain. Previous studies: CT abdomen/pelvis 06/16/2025 FINDINGS: Biliary stent again seen in the right upper quadrant. Markedly increased. Present throughout the entire colon particularly the cecum and right hemicolon as well as the rectosigmoid. No evidence of established small bowel obstruction. IMPRESSION: Severe constipation. Negative for bowel obstruction. Electronically signed by Jone Germain 06-26-2025 2:27 PM
[2025-06-27 06:19] LABS: Hematocrit (blood only) 33.8 % (42.0-52.0); Hemoglobin 11.3 g/dl (14.0-18.0); Mean Corpuscular Hemoglobin 24.9 pg (25.0-34.0); Mean Corpuscular Volume 74.6 fL (80.0-100.0); Platelet Count 303 K/uL (130-400); RDW Standard Deviation 43.3 fL (36.4-46.3); Red Blood Count 4.53 M/uL (4.70-6.10); White Blood Count 15.52 K/ul (4.8-10.8)
[2025-06-27 06:34] LABS: Anion Gap 5.0 (3-11); Blood Urea Nitrogen 16.0 mg/dl (6-23); Calcium 8.3 mg/dl (8.6-10.3); Carbon Dioxide 29.0 mmol/L (21-32); Chloride 95.0 mmol/L (98-107); Creatinine Clr Calc Pharmacy 123.8 ml/min; Glucose 89.0 mg/dl (70-99(Fasting)); Magnesium 2.1 mg/dl (1.7-2.4); Potassium 4.0 mmol/L (3.5-5.1); Sodium 129.0 mmol/L (136-145)
--- NOTE | 2025-06-27 07:04 | Hospitalist Progress Note ---
Date of Service June 27, 2025 Assessment & Plan (1) Pulmonary embolism, bilateral: (2) Splenic infarction: (3) LV (left ventricular) mural thrombus: (4) Ischemic cardiomyopathy: (5) Acute on chronic heart failure with reduced ejection fraction (HFrEF, <= 40%): (6) Aspiration pneumonia: (7) Hypertension: (8) DM2 (diabetes mellitus, type 2): (9) Acute hypoxemic respiratory failure: (10) Hyponatremia: (11) Cerebrovascular small vessel disease: (12) Vascular dementia: Plan Mr. 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 Case complicated by patient's depression and medication noncompliance. #Acute hypoxic resp failure, multifactorial --> resolved #Severe sepsis 2/2 bacterial pneumonia #History of silent aspiration Respiratory BioFire panel negative, CT revealed prominent areas of opacities in lungs Risk for pseudomonas given DMII hx and comorbidities Was on cefepime, azithromycin and Flagyl --> completed abx therapy 06/21 Still with coarse yet nonproductive cough --> will trial Robitussin DM, hold Mucinex Continue ISP and flutter valve use, john Flonase (added on 06/25 2/2 reported nasal congestion and postnasal drip) H/o video swallow study in 12/2024 with silent aspiration and was recommended minced and moist diet, thin liquids, oral mouth care BID #Leukocytosis WBC uptrend from 12k yesterday to 15k today Procalcitonin negative on 06/26, remains afebrile Suspect 2/2 severe constipation No further ABX at this time Monitor CBC trend #Severe constipation Seen on KUB yesterday Had 2 large, copious BMs overnight per RN Continue MiraLAX BID, Colace BID PRN lactulose Repeat KUB tomorrow AM #Bilateral pulmonary emboli #Apical cardiac thrombus #DVT in LLE #Splenic infarct History of known cardiac thrombus ISO HFrEF, found on echo 04/25/25 Pt with recent noncompliance with Eliquis On this admission: DVT with thrombophlebitis and left common femoral vein DVT & multiple pulm emboli noted Was on IV heparin drip for 48hrs then transitioned back to Eliquis with DVT loading dose on 06/19 Per review, was on Eliquis 10mg BID x 5 days and appears order fell off and did not receive Eliquis on 06/24 Eliquis 10mg BID ordered for 4 additional doses to complete 7 days then to begin Eliquis 5mg BID on 06/27 #Acute on chronic heart failure with reduced EF #Ischemic cardiomyopathy, multivessel CAD #Valvular heart disease (mild MR/TR) 04/25/25 TTE: EF=20-25%, diffuse hypokinesis to akinesis, moderate size apical thrombus, mild aortic valve sclerosis without stenosis, mild mitral regurgitation, mild tricuspid regurgitation, moderate left to right interatrial shunt, grade III diastolic dysfunction consistent with markedly increased left atrial pressure On admission home regimen of metoprolol succinate, aspirin, rosuvastatin was resumed Initially noted to be overloaded and was given lasix 20mg IV x 1 dose on 06/17 per cardiology recommendations, volume status seemed to improve 06/22 was started on po spironolactone 25mg daily and po Lasix 20mg daily Cardiology had recommended holding home lisinopril and Imdur which continue to be on hold 06/25: pt volume overloaded and was given 40mg Lasix IV, po Lasix and Aldactone placed on hold 06/26: pt with reported decreased SOB and CXR showed improvement, was given 20mg IV Lasix 06/27: restarted 20mg po Lasix, continue to hold po Aldactone 2/2 borderline BP Monitor I's &O's and daily weights for further diuretic adjustment (wt 110.4kg on admission -> 105.4kg today) Admission BNP was 968, then was 501 on 06/26 #Hyponatremia Thought hypoosmolar hyponatremia 2/2 illness, SIADH, hypothyroidism, volume overload ISO medication noncompliance Na 128 yesterday -> 129 today Slowly improving Continue 1.8L FFR and monitor #Hypothyroidism TSH: 18 Elevated TSH likely 2/2 levothyroxine noncompliance Resume prior levothyroxine dosing Will need repeat TSH in 4-6 weeks #MDD #Anxiety Palliative consulted on admission 2/ request for hospice Previous provider discussed further with pt and brother, seeming passive SI however does endorse desire to improve Psych consulted 06/18: increased Abilify to 5mg daily, increased Zoloft to 100mg daily Peer to peer completed on 06/23 --> approved for SNF rehab - appreciate CM with placement efforts #Chronic anemia H/H overall stable Continue to monitor #HTN Initially relative hypotension 2/2 acute illness Home lisinopril and Imdur have been on hold Still relatively hypotensive, continue to monitor with above diuretic changes #HLD Continue statin #Severe CHARLEEN CPAP intolerance Consider overnight pulse ox when pneumonia and volume status improves for nocturnal oxygen prior to DC #History of CVA in 2007 with residual L-sided weakness Continue statin and ASA #Insulin-requiring DM2 H/o medication noncompliance, previously was well-controlled with Hgb A1c 6.8% in January 2025 06/17/25 Hgb A1c: 9.4% Basal/bolus insulin for now, 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 Rivera. Please see addendum. I spent a total of 44 minutes coordinating, documenting, and providing care for this patient excluding time spent in the performance of separately billed services or time spent by another provider/QHP. This included personally reviewing all current laboratories and imaging studies, medical reconciliation, outpatient chart review and discussion with specialists. This chart was completed in part utilizing Speech Voice Recognition Software. Grammatical errors, random word insertions, pronoun errors, and incomplete sentences are an occasional consequence of this system due to software limitations, ambient noise, and hardware issues. Any formal questions or concer ns about the content, text, or information contained within the body of this dictation should be directly addressed to the provider for clarification. Admission and Anticipated Discharge Date Admission Date: June 16, 2025 Supervising Physician Co-Signing Physician Notes I have seen and discussed the case with the collaborating advanced practitioner. I agree with the above progress noted. I have reviewed and confirmed the patients medical history, the findings on physical examination, and the patients diagnosis and treatment plan with [place] and agree with the information documented. Patient evaluated at bedside. Reports gas and passing bowel movements. Denies any other concerns. Pending placement to encompass. CXR with congestion noted, start po lasix.Plan as above I spent a total of 15 minutes coordinating, documenting, and providing care for this patient excluding time spent in the performance of separately billed services. All of the aforementioned completed outside of collaborating with the assigned advanced practitioner for a full treatment plan. I have reviewed the advanced practitioner's documentation, and I agree with, and take responsibility for the plan of care Subjective Patient seen and examined in room 310-1. Sitting up in chair at bedside. Flat affect. Still with persistent cough, nonproductive. Some SOB with the cough but feels this is unchanged from prior days. Still feeling tired. Ate some applesauce this morning. Had 2 large BMs overnight per RN. Denies any CP, abd pain or N/V. Review of Systems Review of Systems: At least ten systems reviewed and negative, except as noted in the subjective section. Physical Exam Physical Exam: General: chronically ill-appearing, obese M Head: normocephalic, atraumatic Eyes: conjunctiva non-injected, anicteric ENT: normal inspection external ears, nose, mucous membranes moist Neck: supple, trachea midline Lungs: no respiratory distress, 97% on RA, moist nonproductive cough, diminished lung sounds bilaterally with some occasional rhonchi CV: RRR, 1-2+ LLE edema, trace RLE edema Abd: normal BS, soft, non-tender to palpation Ext: no cyanosis, no calf tenderness Neuro: A&Ox3, + diffuse weakness, flat affect Results & Data Results & Data Vital Signs (Past 12 Hours) Vital Signs Temp Pulse Resp BP Pulse Ox O2 Del Method 06/26/25 22:59 36.4 C L 83 16 118/76 99 Room Air 06/26/25 21:15 Room Air Laboratory Results Short CBC 06/27/25 Range/Units 05:58 WBC 15.52 H (4.8-10.8) K/ul Hgb 11.3 L (14.0-18.0) g/dl Hct 33.8 L (42.0-52.0) % Plt Count 303 (130-400) K/uL BMP 06/27/25 05:58 Sodium 129 L Potassium 4.0 Chloride 95 L Carbon Dioxide 29 BUN 16 Creatinine 0.74 Glucose 89 Calcium 8.3 L (7) Hypertension Hypertension type: unspecified Qualified Code(s): I10 - Essential (primary) hypertension
[2025-06-27] MEDS: APIXABAN 5 MG TABLET PO SCH (08:31)
[2025-06-27 09:32] LABS: Immature Granulocytes # (auto) 0.13 K/uL (0.01-0.20); Immature Granulocytes % (auto) 0.8 %
[2025-06-27] MEDS ORDERED: LACTULOSE SYRUP 20 GM/30 ML UDC PO PRN (16:18)
[2025-06-27] MEDS: FUROSEMIDE 20 MG TAB PO SCH (17:04)
--- NOTE | 2025-06-28 09:41 | XRay Report ---
KUB HISTORY: Constipation COMPARISON STUDY: 06/26/2025 FINDINGS: There is a large amount of retained stool. No bowel obstruction seen. Stable common bile du ct stent. No gross free air seen. IMPRESSION: Large amount of retained stool. ACT 112: Negative or not required by law. The above report was generated using voice recognition software. It may contain grammatical, syntax o r spelling errors. Electronically signed by: Jone Kwon M.D. 06/28/2025 9:40 AM
--- NOTE | 2025-06-28 09:59 | XRay Report ---
XR chest 1V portable CLINICAL HISTORY: Cough, r/o aspiration COMPARISON STUDY: 06/26/2025 FINDINGS: Stable cardiomegaly with pulmonary vascular congestion consistent with CHF. Stable bilatera l pleural effusions and associated lung base consolidation. No pneumothorax. IMPRESSION: Grossly stable exam with CHF and bilateral pleural effusions and associated lung base co nsolidation. ACT 112: Negative or not required by law. Electronically signed by: Jone Kwon M.D. 06/28/2025 9:57 AM
[2025-06-28] MEDS: CHLORASEPTIC (PHENOL) 1.4% SOLN 180 ML BTL MT PRN (11:12)
[2025-06-28 11:52] LABS: Hematocrit (blood only) 33.8 % (42.0-52.0); Hemoglobin 10.9 g/dl (14.0-18.0); Immature Granulocytes # (auto) 0.10 K/uL (0.01-0.20); Immature Granulocytes % (auto) 0.7 %; Mean Corpuscular Hemoglobin 24.4 pg (25.0-34.0); Mean Corpuscular Volume 75.8 fL (80.0-100.0); Platelet Count 329 K/uL (130-400); RDW Standard Deviation 43.8 fL (36.4-46.3); Red Blood Count 4.46 M/uL (4.70-6.10); White Blood Count 13.74 K/ul (4.8-10.8)
[2025-06-28 11:59] LABS: Anion Gap 5.0 (3-11); Blood Urea Nitrogen 15.0 mg/dl (6-23); Calcium 8.2 mg/dl (8.6-10.3); Carbon Dioxide 28.0 mmol/L (21-32); Chloride 95.0 mmol/L (98-107); Creatinine Clr Calc Pharmacy 127.6 ml/min; Glucose 122.0 mg/dl (70-99(Fasting)); Magnesium 2.2 mg/dl (1.7-2.4); Potassium 4.4 mmol/L (3.5-5.1); Sodium 128.0 mmol/L (136-145)
[2025-06-28] MEDS ORDERED: SOD PHOSPHATE/SOD BIPHOSPHATE ENEMA 132 ML BTL PR PRN (12:38)
[2025-06-28] MEDS: FUROSEMIDE INJ 20 MG/2 ML VIAL IV ONE (12:59)
[2025-06-28] MEDS: POTASSIUM CHLORIDE 20 MEQ/15 ML UDC PO STA (13:07)
[2025-06-28] MEDS: LEVALBUTEROL 1.25 MG/3 ML NEB NEB SCH (13:30)
--- NOTE | 2025-06-28 13:49 | Hospitalist Progress Note ---
Date of Service June 28, 2025 Assessment & Plan (1) Pulmonary embolism, bilateral: (2) Splenic infarction: (3) LV (left ventricular) mural thrombus: (4) Ischemic cardiomyopathy: (5) Acute on chronic heart failure with reduced ejection fraction (HFrEF, <= 40%): (6) Aspiration pneumonia: (7) Hypertension: (8) DM2 (diabetes mellitus, type 2): (9) Acute hypoxemic respiratory failure: (10) Hyponatremia: (11) Cerebrovascular small vessel disease: (12) Vascular dementia: Plan Mr. 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 Case complicated by patient's depression and medication noncompliance. #Acute hypoxic resp failure, multifactorial -> resolved #Severe sepsis 2/2 bacterial pneumonia #History of silent aspiration Respiratory BioFire panel negative, CT revealed prominent areas of opacities in lungs Risk for pseudomonas given DMII hx and comorbidities Was on cefepime, azithromycin and Flagyl --> completed abx therapy 06/21 Still with coarse yet nonproductive cough -Feels same as yesterday despite addition of Robitussin DM -Will increase Robitussin DM dose -C/o postnasal drip and sore throat today --> add on Chloraseptic spray, john Claritin; continue Flonase -Repeat CXR this AM grossly unchanged from prior on 06/26 (diuretic adjustments as per below) Continue ISP and flutter valve use H/o video swallow study in 12/2024 with silent aspiration and was recommended minced and moist diet, thin liquids, oral mouth care BID Aspiration precautions #Leukocytosis WBC 12k 06/26 -> 15K 06/27 -> 13k today Procalcitonin negative on 06/26, remains afebrile Suspect 2/2 severe constipation No further ABX at this time Monitor CBC trend #Severe constipation Seen on KUB done 06/26 Was started on MiraLAX BID and Colace BID Had 3 large BMs yesterday during day shift and several small BMs overnight Repeat KUB this AM still with large amount of retained stool Schedule lactulose daily for now in AM PRN Fleet enema --> discussed with RN, if no BM this afternoon will plan on utilizing enema #Bilateral pulmonary emboli #Apical cardiac thrombus #DVT in LLE #Splenic infarct History of known cardiac thrombus ISO HFrEF, found on echo 04/25/25 Pt with recent noncompliance with Eliquis On this admission: DVT with thrombophlebitis and left common femoral vein DVT & multiple pulm emboli noted Was on IV heparin drip for 48hrs then transitioned back to Eliquis with DVT loading dose on 06/19 Per review, was on Eliquis 10mg BID x 5 days and appears order fell off and did not receive Eliquis on 06/24 Eliquis 10mg BID ordered for 4 additional doses to complete 7 days then to begin Eliquis 5mg BID on 06/27 #Acute on chronic heart failure with reduced EF #Ischemic cardiomyopathy, multivessel CAD #Valvular heart disease (mild MR/TR) 04/25/25 TTE: EF=20-25%, diffuse hypokinesis to akinesis, moderate size apical thrombus, mild aortic valve sclerosis without stenosis, mild mitral regurgitation, mild tricuspid regurgitation, moderate left to right interatrial shunt, grade III diastolic dysfunction consistent with markedly increased left atrial pressure On admission home regimen of metoprolol succinate, aspirin, rosuvastatin was resumed Initially noted to be overloaded and was given lasix 20mg IV x 1 dose on 06/17 per cardiology recommendations, volume status seemed to improve 06/22 was started on po spironolactone 25mg daily and po Lasix 20mg daily Cardiology had recommended holding home lisinopril and Imdur which continue to be on hold 06/25: pt volume overloaded and was given 40mg Lasix IV, po Lasix and Aldactone placed on hold 06/26: pt with reported decreased SOB and CXR showed improvement, was given 20mg IV Lasix 06/27: restarted 20mg po Lasix, continue to hold po Aldactone 2/2 borderline BP 06/28: still with 2+ RLE, 1+ LLE edema on exam today with grossly unchanged pulmonary vascular congestion and b/l pleural effusions on repeat CXR today -S/p 20mg po Lasix already -Will give another 10mg IV Lasix this afternoon, K+ repletion Monitor I's &O's and daily weights for further diuretic adjustment (wt 110.4kg on admission -> 103.2kg today) Admission BNP was 968, then was 501 on 06/26 #Hyponatremia Thought hypoosmolar hyponatremia 2/2 illness, SIADH, hypothyroidism, volume overload ISO medication noncompliance Na 129 yesterday -> 128 today Overall stable compared to prior Continue 1.8L FFR and monitor #Hypothyroidism TSH: 18 Elevated TSH likely 2/2 levothyroxine noncompliance Resume prior levothyroxine dosing Will need repeat TSH in 4-6 weeks #MDD #Anxiety Palliative consulted on admission 11/14 request for hospice Previous provider discussed further with pt and brother, seeming passive SI however does endorse desire to improve Psych consulted 06/18: increased Abilify to 5mg daily, increased Zoloft to 100mg daily Peer to peer completed on 06/23 --> approved for SNF rehab - appreciate CM with placement efforts #Chronic anemia H/H overall stable Microcytic anemia so will check Fe panel Continue to monitor #HTN Initially relative hypotension 2/2 acute illness Home lisinopril and Imdur have been on hold Still relatively hypotensive, continue to monitor with above diuretic changes ? 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 Rivera. Please see addendum. I spent a total of 44 minutes coordinating, documenting, and providing care for this patient excluding time spent in the performance of separately billed services or time spent by another provider/QHP. This included personally reviewing all current laboratories and imaging studies, medical reconciliation, outpatient chart review and discussion with specialists. This chart was completed in part utilizing Speech Voice Recognition Software. Grammatical errors, random word insertions, pronoun errors, and incomplete sentences are an occasional consequence of this system due to software limitations, ambient noise, and hardware issues. Any formal questions or concerns about the content, text, or information contained within the body of this dictation should be directly addressed to the provider for clarification. Admission and Anticipated Discharge Date Admission Date: June 16, 2025 Supervising Physician Co-Signing Physician Notes I have seen and discussed the case with the collaborating advanced practitioner. I agree with the above progress noted. I have reviewed and confirmed the patients medical history, the findings on physical examination, and the patients diagnosis and treatment plan with [place] and agree with the information documented. Patient evaluated at bedside. Reports gas and passing bowel movements. Denies any other concerns.Cough improved on nebs. CXR with congestion noted, start po lasix, s/p IV lasix today. Pending PASSR for rehab placement. I spent a total of 15 minutes coordinating, documenting, and providing care for this patient excluding time spent in the performance of separately billed services. All of the aforementioned completed outside of collaborating with the assigned advanced practitioner for a full treatment plan. I have reviewed the advanced practitioner's documentation, and I agree with, and take responsibility for the plan of care Subjective Patient seen and examined in room 310-1. Sitting up in chair at bedside watching TV, flat affect. Ongoing nonproductive cough, feels grossly unchanged compared to yesterday. Some SOB with the cough however feels similar to days prior. Not requiring any supplemental O2. Ate breakfast. Per RN, had several small BMs overnight and 3 large BMs during dayshift yesterday. Review of Systems Review of Systems: At least ten systems reviewed and negative, except as noted in the subjective section. Physical Exam Physical Exam: General: chronically ill-appearing, obese M Head: normocephalic, atraumatic Eyes: conjunctiva non-injected, anicteric ENT: normal inspection external ears, nose, mucous membranes moist Neck: supple, trachea midline Lungs: no respiratory distress, 98% on RA, moist nonproductive cough, diminished lung sounds bilaterally CV: RRR, 1-2+ RLE edema, 1+ LLE edema Abd: normal BS, soft, non-tender to palpation Ext: no cyanosis, no calf tenderness Neuro: A&Ox3, + diffuse weakness (unchanged from days prior), flat affect Results & Data Results & Data Vital Signs (Past 12 Hours) Vital Signs Temp Pulse Resp BP Pulse Ox O2 Del Method 06/28/25 13:30 68 18 98 Room Air 06/28/25 09:40 85 18 98 Room Air 06/28/25 07:11 36.6 C 80 16 105/74 94 Room Air Laboratory Results Short CBC 06/28/25 Range/Units 11:17 WBC 13.74 H (4.8-10.8) K/ul Hgb 10.9 L (14.0-18.0) g/dl Hct 33.8 L (42.0-52.0) % Plt Count 329 (130-400) K/uL BMP 06/28/25 11:17 Sodium 128 L Potassium 4.4 Chloride 95 L Carbon Dioxide 28 BUN 15 Creatinine 0.71 Glucose 122 H Calcium 8.2 L (7) Hypertension Hypertension type: unspecified Qualified Code(s): I10 - Essential (primary) hypertension
[2025-06-28 15:05] LABS: Iron 23.0 mcg/dl (35-175); Total Iron Binding Cap Calc 228.0 mcg/dl (250-450); Transferrin 163.0 mg/dl (200-360); Transferrin (FE) Percent Satur 10.0 % (20-50)
[2025-06-28 15:26] LABS: Ferritin 268.3 ng/ml (8-388)
[2025-06-28] MEDS: LACTULOSE SYRUP 20 GM/30 ML UDC PO SCH (17:03)
[2025-06-29 06:22] LABS: Hematocrit (blood only) 32.1 % (42.0-52.0); Hemoglobin 10.2 g/dl (14.0-18.0); Mean Corpuscular Hemoglobin 23.9 pg (25.0-34.0); Mean Corpuscular Volume 75.2 fL (80.0-100.0); Platelet Count 295 K/uL (130-400); RDW Standard Deviation 44.4 fL (36.4-46.3); Red Blood Count 4.27 M/uL (4.70-6.10); White Blood Count 13.95 K/ul (4.8-10.8)
[2025-06-29 06:35] LABS: Anion Gap 4.0 (3-11); Blood Urea Nitrogen 15.0 mg/dl (6-23); Calcium 8.2 mg/dl (8.6-10.3); Carbon Dioxide 30.0 mmol/L (21-32); Chloride 95.0 mmol/L (98-107); Creatinine Clr Calc Pharmacy 116.0 ml/min; Glucose 80.0 mg/dl (70-99(Fasting)); Magnesium 2.1 mg/dl (1.7-2.4); Potassium 4.1 mmol/L (3.5-5.1); Sodium 129.0 mmol/L (136-145)
[2025-06-29] MEDS: LORATADINE 10 MG TAB PO SCH (10:13)
[2025-06-29] MEDS: FERROUS SULFATE 325 MG TAB PO SCH (10:15)
--- NOTE | 2025-06-29 14:11 | Hospitalist Progress Note ---
<Statement entered by Harpal Lemon DO - 06/29/25 14:39> patient seen and examined History of non compliance. he was educated on the importance of his medications Waiting on placement See below for full details 13 minutes were spent in care for patient Date of Service June 29, 2025 Assessment & Plan (1) Pulmonary embolism, bilateral: (2) Splenic infarction: (3) LV (left ventricular) mural thrombus: (4) Ischemic cardiomyopathy: (5) Acute on chronic heart failure with reduced ejection fraction (HFrEF, <= 40%): (6) Aspiration pneumonia: (7) Hypertension: (8) DM2 (diabetes mellitus, type 2): (9) Acute hypoxemic respiratory failure: (10) Hyponatremia: (11) Cerebrovascular small vessel disease: (12) Vascular dementia: Plan Mr. 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 Case complicated by patient's depression and medication noncompliance. #Acute hypoxic resp failure, multifactorial -> resolved #Severe sepsis 2/2 bacterial pneumonia #History of silent aspiration Respiratory BioFire panel negative, CT revealed prominent areas of opacities in lungs Risk for pseudomonas given DMII hx and comorbidities Was on cefepime, azithromycin and Flagyl --> completed abx therapy 06/21 Still with coarse yet nonproductive cough -Feels same as days prior despite addition of Robitussin DM (and increased dose) -C/o postnasal drip and sore throat 06/28 --> added on Chloraseptic spray, john Claritin; continue Flonase -Repeat CXR 06/28 grossly unchanged from prior on 06/26 -Suspect cough related to persistent pulmonary vascular congestion/bilateral pleural effusions, low suspicion for infection recurrence -Diuretics being adjusted as per below Continue ISP and flutter valve use H/o video swallow study in 12/2024 with silent aspiration and was recommended minced and moist diet, thin liquids, oral mouth care BID Aspiration precautions #Leukocytosis WBC 12k 9/14 -> 15K 06/27 -> 13k today Procalcitonin negative on 06/26, remains afebrile Suspect reactive 2/2 severe constipation No further ABX at this time Monitor CBC trend #Severe constipation Seen on KUB done 06/26 Was started on MiraLAX BID and Colace BID Repeat KUB 06/28 still with large amount of retained stool John daily lactulose added 06/28 Pt now passing BMs, had multiple episodes overnight Pt reports improvement in abd discomfort/distention #Bilateral pulmonary emboli #Apical cardiac thrombus #DVT in LLE #Splenic infarct History of known cardiac thrombus ISO HFrEF, found on echo 04/25/25 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: DVT with thrombophlebitis and left common femoral vein DVT & multiple pulm emboli noted Was on IV heparin drip for 48hrs then transitioned back to Eliquis with DVT loading dose on 06/19 Per review, was on Eliquis 10mg BID x 5 days and appears order fell off and did not receive Eliquis on 06/24 Eliquis 10mg BID ordered for 4 additional doses to complete 7 days then to begin Eliquis 5mg BID on 06/27 #Acute on chronic heart failure with reduced EF #Ischemic cardiomyopathy, multivessel CAD #Valvular heart disease (mild MR/TR) 04/25/25 TTE: EF=20-25%, diffuse hypokinesis to akinesis, moderate size apical thrombus, mild aortic valve sclerosis without stenosis, mild mitral regurgitation, mild tricuspid regurgitation, moderate left to right interatrial shunt, grade III diastolic dysfunction consistent with markedly increased left atrial pressure On admission home regimen of metoprolol succinate, aspirin, rosuvastatin was resumed Initially noted to be overloaded and was given lasix 20mg IV x 1 dose on 06/17 per cardiology recommendations, volume status seemed to improve 06/22 was started on po spironolactone 25mg daily and po Lasix 20mg daily Cardiology had recommended holding home lisinopril and Imdur which continue to be on hold 06/25: pt volume overloaded and was given 40mg Lasix IV, po Lasix and Aldactone placed on hold 06/26: pt with reported decreased SOB and CXR showed improvement, was given 20mg IV Lasix 06/27: restarted 20mg po Lasix, continue to hold po Aldactone 2/2 borderline BP 06/28: still with 2+ RLE, 1+ LLE edema on exam today with grossly unchanged pulmonary vascular congestion and b/l pleural effusions on repeat CXR today -S/p 20mg po Lasix already -Will give another 10mg IV Lasix this afternoon, K+ repletion 06/29: still with BLE edema, nonproductive cough which is likely 2/2 persistent volume overload -Continue 20mg po Lasix -Uptitration of diuretic regimen c/b baseline hypotension -Will trial an additional 10mg IV Lasix this afternoon and see how BP responds Monitor I's &O's and daily weights for further diuretic adjustment (wt 110.4kg on admission -> 103kg today which appears to be around his baseline) Admission BNP was 968, then was 501 on 06/26 #Hyponatremia Thought hypoosmolar hyponatremia 2/2 illness, SIADH, hypothyroidism, volume overload ISO medication noncompliance Na 129 today Overall stable compared to prior Continue 1.8L FFR and monitor #Hypothyroidism TSH: 18 Elevated TSH likely 2/2 levothyroxine noncompliance Resume prior levothyroxine dosing Will need repeat TSH in 4-6 weeks #MDD #Anxiety Palliative consulted on admission 11/14 request for hospice Previous provider discussed further with pt and brother, seeming passive SI however does endorse desire to improve Psych consulted 06/18: increased Abilify to 5mg daily, increased Zoloft to 100mg daily Peer to peer completed on 06/23 --> approved for SNF rehab - appreciate CM with placement efforts #Chronic anemia H/H overall stable Iron level 23, start Fe supplementation Continue to monitor #HTN Initially relative hypotension 2/2 acute illness Home lisinopril and Imdur have been on hold Still relatively hypotensive, continue to monitor with above diuretic changes ? consider addition of midodrine for BP support with diuretic uptitration #HLD Continue statin #Severe CHARLEEN CPAP intolerance ? 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 Lemon. Please see addendum. I spent a total of 42 minutes coordinating, documenting, and providing care for this patient excluding time spent in the performance of separately billed services or time spent by another provider/QHP. This included personally reviewing all current laboratories and imaging studies, medical reconciliation, outpatient chart review and discussion with specialists. This chart was completed in part utilizing Speech Voice Recognition Software. Grammatical errors, random word insertions, pronoun errors, and incomplete sentences are an occasional consequence of this system due to software limitations, ambient noise, and hardware issues. Any formal questions or concerns about the content, text, or information contained within the body of t his dictation should be directly addressed to the provider for clarification. Admission and Anticipated Discharge Date Admission Date: June 16, 2025 Subjective Patient seen and examined in room 310-1. Sleeping in bed upon my arrival but easily arousable. Still with nonproductive cough. Had few BMs overnight. Review of Systems Review of Systems: At least ten systems reviewed and negative, except as noted in the subjective section. Physical Exam Physical Exam: General: chronically ill-appearing, obese M, laying down in bed Head: normocephalic, atraumatic Eyes: conjunctiva non-injected, anicteric ENT: normal inspection external ears, nose, mucous membranes moist Neck: supple, trachea midline Lungs: no respiratory distress, 98% on RA, moist nonproductive cough, diminished lung sounds bilaterally CV: RRR, 1+ RLE edema, 2+ LLE edema Abd: normal BS, soft, non-tender to palpation Ext: no cyanosis, no calf tenderness Neuro: A&Ox3, + diffuse weakness (unchanged from days prior), flat affect Results & Data Results & Data Vital Signs (Past 12 Hours) Vital Signs Temp Pulse Resp BP Pulse Ox O2 Del Method 06/29/25 13:56 81 16 98 Room Air 06/29/25 10:11 79 114/76 06/29/25 08:05 Room Air 06/29/25 07:16 80 18 93 Room Air 06/29/25 06:54 36.5 C 81 18 117/79 96 Room Air Laboratory Results Short CBC 06/29/25 Range/Units 05:44 WBC 13.95 H (4.8-10.8) K/ul Hgb 10.2 L (14.0-18.0) g/dl Hct 32.1 L (42.0-52.0) % Plt Count 295 (130-400) K/uL BMP 06/29/25 05:44 Sodium 129 L Potassium 4.1 Chloride 95 L Carbon Dioxide 30 BUN 15 Creatinine 0.78 Glucose 80 Calcium 8.2 L (7) Hypertension Hypertension type: unspecified Qualified Code(s): I10 - Essential (primary) hypertension
[2025-06-29] MEDS: MAGNESIUM CITRATE 296 ML/BTL PO STA (15:03)
[2025-06-29] MEDS: FUROSEMIDE INJ 20 MG/2 ML VIAL IV ONE (15:04)
[2025-06-30 09:25] LABS: Anion Gap 4.0 (3-11); Blood Urea Nitrogen 15.0 mg/dl (6-23); Calcium 8.2 mg/dl (8.6-10.3); Carbon Dioxide 29.0 mmol/L (21-32); Chloride 96.0 mmol/L (98-107); Creatinine Clr Calc Pharmacy 124.1 ml/min; Glucose 104.0 mg/dl (70-99(Fasting)); Magnesium 2.2 mg/dl (1.7-2.4); Potassium 4.5 mmol/L (3.5-5.1); Sodium 129.0 mmol/L (136-145)
--- NOTE | 2025-06-30 12:25 | Hospitalist Progress Note ---
<Statement entered by Harpal Lemon, - 06/30/25 15:00> I was available to GREG Voiding trial today See below Date of Service June 30, 2025 Assessment & Plan (1) Pulmonary embolism, bilateral: (2) Splenic infarction: (3) LV (left ventricular) mural thrombus: (4) Ischemic cardiomyopathy: (5) Acute on chronic heart failure with reduced ejection fraction (HFrEF, <= 40%): (6) Aspiration pneumonia: (7) Hypertension: (8) DM2 (diabetes mellitus, type 2): (9) Acute hypoxemic respiratory failure: (10) Hyponatremia: (11) Cerebrovascular small vessel disease: (12) Vascular dementia: Plan Mr. 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 Case complicated by patient's depression and m edication noncompliance. Acute hypoxic resp failure, multifactorial, resolved Severe sepsis 2/2 bacterial pneumonia, resolved History of silent aspiration Respiratory BioFire panel negative, CT revealed prominent areas of opacities in lungs Was on cefepime, azithromycin and Flagyl --> completed abx therapy 06/21 Cough persists but seems to be improving -On scheduled Robitussin -C/o postnasal drip and sore throat 06/28 --> added on Chloraseptic spray, nick Claritin; continue Flonase -Repeat CXR 06/28 grossly unchanged from prior on 06/26 -Suspect cough related to persistent pulmonary vascular congestion/bilateral pleural effusions, low suspicion for infection recurrence -Diuretics being adjusted as per below Continue ISP and flutter valve use H/o video swallow study in 12/2024 with silent aspiration and was recommended minced and moist diet, thin liquids, oral mouth care BID Aspiration precautions Benavides Status Benavides placed on admission due to acute illness Void trial today Leukocytosis WBC 12k 06/26 -> 15K 06/27 -> 13k today Procalcitonin negative on 06/26, remains afebrile No further ABX at this time Monitor CBC trend Severe constipation Seen on KUB done 06/26 Was started on MiraLAX BID and Colace BID Repeat KUB 06/28 still with large amount of retained stool Nick daily lactulose added 06/28 Pt now passing BMs Pt reports improvement in abd discomfort/distention Bilateral pulmonary emboli Apical cardiac thrombus DVT in LLE Splenic infarct History of known cardiac thrombus ISO HFrEF, found on echo 04/25/25 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: DVT with thrombophlebitis and left common femoral vein DVT & multiple pulm emboli noted Was on IV heparin drip for 48hrs then transitioned back to Eliquis with loading dose on 06/19 Continue Eliquis 5 mg BID Acute on chronic heart failure with reduced EF Ischemic cardiomyopathy, multivessel CAD Valvular heart disease (mild MR/TR) 04/25/25 TTE: EF=20-25%, diffuse hypokinesis to akinesis, moderate size apical thrombus, mild aortic valve sclerosis without stenosis, mild mitral regurgitation, mild tricuspid regurgitation, moderate left to right interatrial shunt, grade III diastolic dysfunction consistent with markedly increased left atrial pressure 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 beta-maliha, ASA, statin Initially noted to be overloaded and was given lasix 20mg IV x 1 dose on 06/17 per cardiology recommendations 06/22 was started on po spironolactone 25mg daily and po Lasix 20mg daily Cardiology had recommended holding home lisinopril and Imdur - continue to be on hold 06/25: pt volume overloaded and was given 40mg Lasix IV, po Lasix and Aldactone placed on hold 06/26: pt with reported decreased SOB and CXR showed improvement, was given 20mg IV Lasix 06/27: restarted 20mg po Lasix, continue to hold po Aldactone 2/2 borderline BP 06/28: still with 2+ RLE, 1+ LLE edema with grossly unchanged pulmonary vascular congestion and b/l pleural effusions on repeat CXR -Lasix 10mg IV x 1 06/29: still with BLE edema, nonproductive cough which is likely 2/2 persistent volume overload -Lasix 10mg IV x 1 Continue Lasix 20mg PO daily Admission BNP was 968, then was 501 on 06/26 Monitor I's &O's and daily weights for further diuretic adjustment Weight 104.2kg on admission -> 103.2kg today (note documented weight 110kg on admission however likely error as repeat weight entered 6h later was 104.2kg) Hyponatremia Hypoosmolar hyponatremia 2/2 illness, SIADH, hypothyroidism, volume overload ISO medication noncompliance Na 129 today, stable Continue 1.8L FFR and monitor Hypothyroidism TSH: 18, Free T4 0.59 Likely 2/2 levothyroxine noncompliance Resume prior levothyroxine dosing Will need repeat TSH in 4-6 weeks MDD Anxiety Palliative consulted on admission 11/14 request for hospice Previous provider discussed further with pt and brother, seeming passive SI however does endorse desire to improve Psych consulted 06/18: increased Abilify to 5mg daily, increased Zoloft to 100mg daily Chronic anemia Hgb 10.2 Iron level 23, start Fe supplementation Continue to monitor HTN 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 consider addition of midodrine for BP support with diuretic uptitration Severe CHARLEEN CPAP intolerance ? 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 Lemon. Please see addendum. I spent a total of 35 minutes coordinating, documenting, and providing care for this patient excluding time spent in the performance of separately billed services. This included personally reviewing all current laboratories and imaging studies, medication reconciliation, outpatient chart review, and discussion with specialists. Admission and Anticipated Discharge Date Admission Date: June 16, 2025 Subjective Follow-up for acute hypoxic respiratory failure (resolved), pneumonia, acute on chronic HFrEF, BL PE, DVT. Patient seen and examined. Sitting up in the chair. Reports on going cough. Has chronic shortness of breath which is unchanged from baseline. No chest pain. Physical Exam Constitutional: no acute distress Chronically ill appearing Respiratory: Auscultation: + diminished lung sounds and + crackles (left base ) Cardiovascular: Rate/Rhythm: regular rate and regular rhythm Extremities: + edema (+2 edema BLE) Skin: no rashes, warm and dry Neurologic: no focal motor deficits Psychiatric: Orientation: alert and oriented x 3 Affect: + depressed affect and + flat affect Genitourinary: Benavides in place draining clear yellow urine Results & Data Results & Data Vital Signs (Past 12 Hours) Vital Signs Temp Pulse Resp BP Pulse Ox O2 Del Method 06/30/25 09:11 89 116/80 94 Room Air 06/30/25 08:56 36.4 C L 84 16 99/68 L 98 Room Air 06/30/25 07:39 82 19 92 Room Air 06/30/25 02:17 107 H 95 Room Air Laboratory Results [facility] 06/30/25 08:24 Sodium 129 L Potassium 4.5 Chloride 96 L Carbon Dioxide 29 BUN 15 Creatinine 0.73 Glucose 104 H Calcium 8.2 L (7) Hypertension Hypertension type: unspecified Qualified Code(s): I10 - Essential (primary) hypertension
--- NOTE | 2025-07-01 12:09 | Hospitalist Progress Note ---
<Statement entered by Harpal Lemon DO - 07/01/25 16:57> I was available to GREG See below for details Date of Service July 01, 2025 Assessment & Plan (1) Pulmonary embolism, bilateral: (2) Splenic infarction: (3) LV (left ventricular) mural thrombus: (4) Ischemic cardiomyopathy: (5) Acute on chronic heart failure with reduced ejection fraction (HFrEF, <= 40%): (6) Aspiration pneumonia: (7) Hypertension: (8) DM2 (diabetes mellitus, type 2): (9) Acute hypoxemic respiratory failure: (10) Hyponatremia: (11) Cerebrovascular small vessel disease: (12) Vascular dementia: Plan Mr. 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 Case complicated by patient's depression and medicatio n noncompliance. Acute hypoxic resp failure, multifactorial, resolved Severe sepsis 2/2 bacterial pneumonia, resolved History of silent aspiration Respiratory BioFire panel negative, CT revealed prominent areas of opacities in lungs Was on cefepime, azithromycin and Flagyl --> completed abx therapy 06/21 Cough persists but seems to be improving -On scheduled Robitussin -C/o postnasal drip and sore throat 06/28 --> added on Chloraseptic spray, nick Claritin; continue Flonase -Repeat CXR 06/28 grossly unchanged from prior on 06/26 -Suspect cough related to persistent pulmonary vascular congestion/bilateral pleural effusions, low suspicion for infection recurrence -Diuretics being adjusted as per below Continue ISP and flutter valve use H/o video swallow study in 12/2024 with silent aspiration and was recommended minced and moist diet, thin liquids, oral mouth care BID Aspiration precautions Benavides Status Benavides placed on admission due to acute illness Benavides removed on 06/30 - voiding without difficulty Leukocytosis WBC 12k 06/26 -> 15K 06/27 -> 13k 06/29 Procalcitonin negative on 06/26, remains afebrile No further ABX at this time Monitor CBC trend Severe constipation Seen on KUB done 06/26 Was started on MiraLAX BID and Colace BID Repeat KUB 06/28 still with large amount of retained stool Nick daily lactulose added 06/28 Pt now passing BMs Pt reports improvement in abd discomfort/distention Bilateral pulmonary emboli Apical cardiac thrombus DVT in LLE Splenic infarct History of known cardiac thrombus ISO HFrEF, found on echo 04/25/25 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 admission: DVT with thrombophlebitis and left common femoral vein DVT & multiple pulm emboli noted Was on IV heparin drip for 48hrs then transitioned back to Eliquis with loading dose on 06/19 Continue Eliquis 5 mg BID Acute on chronic heart failure with reduced EF Ischemic cardiomyopathy, multivessel CAD Valvular heart disease (mild MR/TR) 04/25/25 TTE: EF=20-25%, diffuse hypokinesis to akinesis, moderate size apical thrombus, mild aortic valve sclerosis without stenosis, mild mitral regurgitation, mild tricuspid regurgitation, moderate left to right interatrial shunt, grade III diastolic dysfunction consistent with markedly increased left atrial pressure 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 beta-maliha, ASA, statin Initially noted to be overloaded and was given lasix 20mg IV x 1 dose on 06/17 per cardiology recommendations 06/22 was started on po spironolactone 25mg daily and po Lasix 20mg daily Cardiology had recommended holding home lisinopril and Imdur - continue to be on hold 06/25: pt volume overloaded and was given 40mg Lasix IV, po Lasix and Aldactone placed on hold 06/26: pt with reported decreased SOB and CXR showed improvement, was given 20mg IV Lasix 06/27: restarted 20mg po Lasix, continue to hold po Aldactone 2/2 borderline BP 06/28: still with 2+ RLE, 1+ LLE edema with grossly unchanged pulmonary vascular congestion and b/l pleural effusions on repeat CXR -Lasix 10mg IV x 1 06/29: still with BLE edema, nonproductive cough which is likely 2/2 persistent volume overload -Lasix 10mg IV x 1 Admission BNP was 968, then was 501 on 06/26 Monitor I's &O's and daily weights for further diuretic adjustment Weight 104.2kg on admission -> 103.2kg -> 103.2kg today (note documented weight 110kg on admission however likely error as repeat weight entered 6h later was 104.2kg) Seems relatively euvolemic, Continue Lasix 20mg PO daily Hyponatremia Hypoosmolar hyponatremia 2/2 illness, SIADH, hypothyroidism, volume overload ISO medication noncompliance Na 129 06/30, stable Check BMP tomorrow Continue 1.8L FFR and monitor Hypothyroidism TSH: 18, Free T4 0.59 Likely 2/2 levothyroxine noncompliance Resume prior levothyroxine dosing Will need repeat TSH in 4-6 weeks MDD Anxiety Palliative consulted on admission 11/14 request for hospice Previous provider discussed further with pt and brother, seeming passive SI however does endorse desire to improve Psych consulted 06/18: increased Abilify to 5mg daily, increased Zoloft to 100mg daily Chronic anemia Hgb 10.2 06/29 Iron level 23, start Fe supplementation Continue to monitor HTN 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 consider addition of midodrine for BP support with diuretic uptitration Severe CHARLEEN CPAP intolerance Will obtain nocturnal oximetry tonight History of CVA in 2007 with residual L-sided weakness Continue statin and ASA Insulin-requiring DM2 H/o medication noncompliance, previously was well-controlled with Hgb A1c 6.8% in January 2025 06/17/25 Hgb A1c: 9.4% Basal/bolus insulin DVT Prophylaxis: Eliquis Code Status: DNR/DNI Disposition: Peer to peer completed on 06/23 --> approved for SNF rehab, awaiting placement, PASRR level II complete, anticipate d/c to [place] this weekend/early next week Patient seen in collaboration with Dr. Lemon. Please see addendum. I spent a total of 35 minutes coordinating, documenting, and providing care for this patient excluding time spent in the performance of separately billed services. This included personally reviewing all current laboratories and imaging studies, medication reconciliation, outpatient chart review, and discussion with specialists. Admission and Anticipated Discharge Date Admission Date: June 16, 2025 Subjective Follow-up for acute hypoxic respiratory failure (resolved), pneumonia, acute on chronic HFrEF, BL PE, DVT. Patient seen and examined. Sitting up in the chair. Sleeping but arouses easily to verbal stimuli. Mild coughing observed. Patient offers no complaints. Physical Exam Constitutional: WD/WN, vitals as above no acute distress Respiratory: normal respiratory effort; no respiratory distress Auscultation: + diminished lung sounds Cardiovascular: Rate/Rhythm: regular rate and regular rhythm Vessels: normal peripheral pulses Extremities: + edema (+2 edema BLE) Neurologic: no focal motor deficits Psychiatric: Orientation: alert and oriented x 3 Affect: + depressed affect and + flat affect Results & Data Results & Data Vital Signs (Past 12 Hours) Vital Signs Temp Pulse Resp BP Pulse Ox O2 Del Method 07/01/25 10:01 Room Air 07/01/25 07:32 36.3 C L 80 18 102/67 93 Room Air 07/01/25 07:28 80 16 93 Room Air (7) Hypertension Hypertension type: unspecified Qualified Code(s): I10 - Essential (primary) hypertension
[2025-07-02 06:13] LABS: Anion Gap 6.0 (3-11); Blood Urea Nitrogen 16.0 mg/dl (6-23); Calcium 8.1 mg/dl (8.6-10.3); Carbon Dioxide 27.0 mmol/L (21-32); Chloride 97.0 mmol/L (98-107); Creatinine Clr Calc Pharmacy 131.3 ml/min; Glucose 104.0 mg/dl (70-99(Fasting)); Potassium 4.2 mmol/L (3.5-5.1); Sodium 130.0 mmol/L (136-145)
[2025-07-02 07:25] VITALS: BP 110/74; TEMP 97.5
--- NOTE | 2025-07-02 09:35 | Hospitalist Progress Note ---
Date of Service July 02, 2025 Assessment & Plan (1) Pulmonary embolism, bilateral: Plan: Mr. 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 Case complicated by patient's depression and medication noncompliance. Acute hypoxic resp failure, multifactorial, resolved Severe sepsis 2/2 bacterial pneumonia, resolved History of silent aspiration Respiratory BioFire panel negative, CT revealed prominent areas of opacities in lungs Was on cefepime, azithromycin and Flagyl --> completed abx therapy 06/21 Persistent cough, wet and nonproductive, suspect this is related to pulmonary vascular congestion; afebrile withstable WBC last assessed 06/29 -On scheduled Robitussin -C/o postnasal drip and sore throat 06/28 --> added on Chloraseptic spray, nikc Claritin; continue Flonase -Repeat CXR 06/28 grossly unchanged from prior on 06/26 -Diuretics being adjusted as per below Continue ISP and flutter valve use H/o video swallow study in 12/2024 with silent aspiration and was recommended minced and moist diet, thin liquids, oral mouth care BID Aspiration precautions Rodrigues Status Rodrigues placed on admission due to acute illness Rodrigues removed on 06/30 - voiding without difficulty Leukocytosis WBC 12k 06/26 -> 15K 06/27 -> 13k 06/29 Procalcitonin negative on 06/26, remains afebrile No further ABX at this time Monitor CBC trend Acute on chronic heart failure with reduced EF Ischemic cardiomyopathy, multivessel CAD Valvular heart disease (mild MR/TR) 04/25/25 TTE: EF=20-25%, diffuse hypokinesis to akinesis, moderate size apical thrombus, mild aortic valve sclerosis without stenosis, mild mitral regurgitation, mild tricuspid regurgitation, moderate left to right interatrial shunt, grade III diastolic dysfunction consistent with markedly increased left atrial pressure 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-maliha, ASA, statin Initially noted to be overloaded and was given lasix 20mg IV x 1 dose on 06/17 per cardiology recommendations 06/22 was started on po spironolactone 25mg daily and po Lasix 20mg daily Cardiology had recommended holding home lisinopril and Imdur - continue to be on hold 06/25: pt volume overloaded and was given 40mg Lasix IV, po Lasix and Aldactone placed on hold 06/26: pt with reported decreased SOB and CXR showed improvement, was given 20mg IV Lasix 06/27: restarted 20mg po Lasix, continue to hold po Aldactone 2/2 borderline BP 06/28: still with 2+ RLE, 1+ LLE edema with grossly unchanged pulmonary vascular congestion and b/l pleural effusions on repeat CXR -Lasix 10mg IV x 1 06/29: still with BLE edema, nonproductive cough which is likely 2/2 persistent volume overload -Lasix 10mg IV x 1 07/02: BLE edema L>R, nonproductive wet cough, weight unchanged from previous assessments x 3 days Admission BNP was 968, then was 501 on 06/26 Monitor I's &O's and daily weights for further diuretic adjustment Weight 104.2kg on admission -> 103.2kg -> 103.2kg today (note documented weight 110kg on admission however likely error as repeat weight entered 6h later was 104.2kg) Seems relatively euvolemic, Continue Lasix 20mg PO daily Hyponatremia Hypoosmolar hyponatremia 2/2 illness, SIADH, hypothyroidism, volume overload ISO medication noncompliance Na 130 today Check BMP tomorrow Continue 1.8L FFR and monitor Severe constipation Seen on KUB done 06/26 Was started on MiraLAX BID and Colace BID Repeat KUB 06/28 still with large amount of retained stool Nick daily lactulose added 06/28 Pt now passing BMs Pt reports improvement in abd discomfort/distention Bilateral pulmonary emboli Apical cardiac thrombus DVT in LLE Splenic infarct History of known cardiac thrombus ISO HFrEF, found on echo 04/25/25 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 admission: DVT with thrombophlebitis and left common femoral vein DVT & multiple pulm emboli noted Was on IV heparin drip for 48hrs then transitioned back to Eliquis with loading dose on 06/19 Continue Eliquis 5 mg BID Hypothyroidism TSH: 18, Free T4 0.59 Likely 2/2 levothyroxine noncompliance Resume prior levothyroxine dosing Will need repeat TSH in 4-6 weeks MDD Anxiety Palliative consulted on admission 11/14 request for hospice Previous provider discussed further with pt and brother, seeming passive SI however does endorse desire to improve Psych consulted 06/18: increased Abilify to 5mg daily, increased Zoloft to 100mg daily Chronic anemia Hgb 10.2 06/29 Iron level 23, start Fe supplementation Continue to monitor HTN 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 consider addition of midodrine for BP support with diuretic uptitration Severe CHARLEEN CPAP intolerance Will obtain nocturnal oximetry tonight History of CVA in 2007 with residual L-sided weakness Continue statin and ASA Insulin-requiring DM2 H/o medication noncompliance, previously was well-controlled with Hgb A1c 6.8% in January 2025 06/17/25 Hgb A1c: 9.4% Basal/bolus insulin DVT Prophylaxis: Eliquis Code Status: DNR/DNI Disposition: Peer to peer completed on 06/23 --> approved for SNF rehab, awaiting placement, PASRR level II complete, anticipate d/c to [place] this weekend/early next week (2) Splenic infarction: (3) LV (left ventricular) mural thrombus: (4) Ischemic cardiomyopathy: (5) Acute on chronic heart failure with reduced ejection fraction (HFrEF, <= 40%): (6) Aspiration pneumonia: (7) Hypertension: (8) DM2 (diabetes mellitus, type 2): (9) Acute hypoxemic respiratory failure: (10) Hyponatremia: (11) Cerebrovascular small vessel disease: (12) Vascular dementia: Plan Patient seen in collaboration with Dr. Lemon. Please see addendum. I spent a total of 35 minutes coordinating, documenting, and providing care for this patient excluding time spent in the performance of separately billed services. This included personally reviewing all current laboratories and imaging studies, medication reconciliation, outpatient chart review, and discussion with specialists. Admission and Anticipated Discharge Date Admission Date: June 16, 2025 Subjective Patient seen and examined at bedside. Lying on left side, opening eyes, and answering questions,although appears very fatigued. Has some accessory muscle use when sleeping and coughing during my exam. He answered "no" with ROS and when asked if he has any concerns. Per my discussion with bedside RN Gina, patient has been very tired this morning with minimal po intake the past 2 days. His rodrigues was removed on and patient has been incontinent x 1 with no urine output overnight. Patient denied need to urinate. Appears dry, but wet on exam. Denies chest pain, shortness of breath, nausea, vomiting, generalized pain, urinary issues. Review of Systems Review of Systems: All systems reviewed & are unremarkable except as noted in Subjective Physical Exam Physical Exam: VITALS: Reviewed. WEIGHT/BMI reviewed. GEN: Pale appearing, well-developed, sleeping with spontaneous eye opening PSYCH: Opening eyes spontaneously. Answering yes/no questions. Flat mood and affect. HEENT -Head: NC/AT; -Eyes: PERRL, EOMI. No discharge or redn ess; -Ears: External ears are normal. -Nose: Normal nares. -Mouth and throat: Dry membranes. Swallo wing without difficulty. NECK: Supple, with no masses. CV: RRR, no m/r/g. LUNGS: Crackles, fine bilaterally. NAD. Mild accessory use when sleeping. Wet, nonproductive cough. ABD: Soft, NT/ND, NBS, no masses or organomegaly. : N/A SKIN: Warm, well perfused. Scattered bruising and scabs. MSK: No deformities EXT: Edematous L>R, warm, +2 pulses. NEURO: CN II-XII grossly intact. No focal deficits. Results & Data Results & Data Vital Signs (Past 12 Hours) Vital Signs Temp Pulse Pulse Resp BP Pulse Ox Pulse Ox 07/02/25 07:51 82 18 93 07/02/25 07:19 36.4 C L 83 15 110/74 95 07/02/25 02:30 65 96 07/01/25 23:04 36.7 C 87 18 115/74 94 07/01/25 22:10 84 92 O2 Del Method O2 Del Method 07/02/25 07:51 Room Air 07/02/25 07:19 Room Air 07/02/25 02:30 Room Air 07/01/25 23:04 Room Air 07/01/25 22:10 Room Air Laboratory Results BMP 07/02/25 05:33 Sodium 130 L Potassium 4.2 Chloride 97 L Carbon Dioxide 27 BUN 16 Creatinine 0.69 Glucose 104 H Calcium 8.1 L (7) Hypertension Hypertension type: unspecified Qualified Code(s): I10 - Essential (primary) hypertension
[2025-07-02 13:03] VITALS: PULSE 84; RESP 16; O2SAT 97
--- NOTE | 2025-07-02 15:47 | Discharge Summary ---
<Statement entered by Harpal Lemon, DO - 07/02/25 16:55> For DC today. feeling well and has no complaints to author. vitals and labs are stable. Date of Service July 02, 2025 Admission HPI Per Admitting Provider History obtained from patient, family, and records. Patient is a fair historian. Medical history significant for chronic systolic heart failure EF (20 to 25%, TTE 2024), valvular heart disease (mild MR/TR), cardiac thrombus (currently non compliant with Eliquis), CAD, hypertension, hyperlipidemia, CHARLEEN CPAP intolerance, CVA, DM2 insulin requiring, hypothyroidism, chronic anemia (baseline hemoglobin of 13), anxiety/mood disorder, medication noncompliance. Last confinement April 2025 for chest pain and medication noncompliance. TTE showed large apical thrombus. Patient discharged on Eliquis as per cardiology recommendations. Patient also seen by Psychiatry for depression/suicidality during confinement. Abilify and sertraline added to regimen. Patient stopped taking medications a few weeks after returning home. Bracey medications were not helping. "No will to live" as per patient. Patient still depressed but denies suicidality. Patient counseled by PCP to take medications on follow-up visit last month. Last week, patient noted nausea/vomiting symptoms later followed by dry cough. Worsening SOB. Admits to occasional coughing with food/water intake. Patient denies abdominal pain. No chest pain complaints. Not sure about sick contacts. Patient increasingly weak at home. Recurrent falls the last 2 days without syncope. Patient brought to ER for evaluation. IV Cipro, Flagyl, and heparin infusion administered at the ER. Medical History as above Surgical History : Strabismus surgery, dental surgery Family History : Asthma, DM, CHARLEEN Personal/Social history : Non-smoker, occasional EtOH intake, currently unemployed Admission Exam Per Admitting Provider GENERAL: Slightly uncomfortable, obese, ill-appearing, no respiratory distress SKIN: Pallor, warm HEENT: Alopecia, pale palpebral conjunctivae, no ptosis, dry buccal mucosa NECK : Supple, no tenderness CHEST : Decreased breath sounds, occasional expiratory wheezes, no tenderness HEART : Diminished S1-S2, RRR, no obvious murmurs ABDOMEN: Some distention, nontender EXTREMITIES : Minimal LE swelling, no LE tenderness, no other conspicuous defor mities noted NEUROLOGIC : Oriented to place, no facial asymmetry, gait and stance not assessed Principal Diagnosis Acute hypoxic resp failure with Severe sepsis Discharge Exam VITALS: Reviewed. WEIGHT/BMI reviewed. GEN: Pale appearing, well-developed, sleeping with spontaneous eye opening PSYCH: Opening eyes spontaneously. Answering yes/no questions. Flat mood and affect. HEENT -Head: NC/AT; -Eyes: PERRL, EOMI. No discharge or redness; -Ears: External ears are normal. -Nose: Normal nares. -Mouth and throat: Dry membranes. Swallowing without difficulty. NECK: Supple, with no masses. CV: RRR, no m/r/g. LUNGS: Crackles, fine bilaterally. NAD. Mild accessory use when sleeping. Wet, nonproductive cough. ABD: Soft, NT/ND, NBS, no masses or organomegaly. : N/A SKIN: Warm, well perfused. Scattered bruising and scabs. MSK: No deformities EXT: Edematous L>R, warm, +2 pulses. NEURO: CN II-XII grossly intact. No focal deficits. Discharge Data Allergies Allergy/AdvReac Type Severity Reaction Status Date / Time Penicillins Allergy Severe 1969--ANAPH Verified 04/24/25 17:50 YLAXIS doxycycline Allergy Intermediate HIVES Verified 04/24/25 17:50 Macrolide Antibiotics Allergy Unknown UNKNOWN Verified 06/17/25 06:18 morphine AdvReac Intermediate GI UPSET Verified 04/24/25 17:50 Consultations 06/16/25 20:22 ED Decision to Admit Stat 06/16/25 21:24 Consult Palliative Care Routine 06/17/25 09:49 Consult Cardiology Routine Ordered Studies 06/16/25 18:07 CT Abd and Pelvis [CT abd pelvis IV con only] Stat 06/16/25 21:22 US venous doppler LE BI Routine 06/20/25 05:52 CT head/brain wo con Stat Diabetes Follow up Diabetes Follow-up Needed for HgbA1c >9% Hospital Course (1) Pulmonary embolism, bilateral: Mr. 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 Case complicated by patient's depression and medication noncompliance. Acute hypoxic resp failure, multifactorial, resolved Severe sepsis 2/2 bacterial pneumonia, resolved History of silent aspiration Respiratory BioFire panel negative, CT revealed prominent areas of opacities in lungs Was on cefepime, azithromycin and Flagyl --> completed abx therapy 06/21 Persistent cough, wet and nonproductive, suspect this is related to pulmonary vascular congestion; afebrile withstable WBC last assessed 06/29 -On scheduled Robitussin -C/o postnasal drip and sore throat 06/28 --> added on Chloraseptic spray, nick Claritin; continue Flonase -Repeat CXR 06/28 grossly unchanged from prior on 06/26 -Diuretics being adjusted as per below Continue ISP and flutter valve use H/o video swallow study in 12/2024 with silent aspiration and was recommended minced and moist diet, thin liquids, oral mouth care BID Aspiration precautions Benavides Status Benavides placed on admission due to acute illness Benavides removed on 06/30 - voiding without difficulty Leukocytosis WBC 12k 06/26 -> 15K 06/27 -> 13k 06/29 Procalcitonin negative on 06/26, remains afebrile No further ABX at this time Monitor CBC trend Acute on chronic heart failure with reduced EF Ischemic cardiomyopathy, multivessel CAD Valvular heart disease (mild MR/TR) 04/25/25 TTE: EF=20-25%, diffuse hypokinesis to akinesis, moderate size apical thrombus, mild aortic valve sclerosis without stenosis, mild mitral regurgitatio n, mild tricuspid regurgitation, moderate left to right interatrial shunt, grade III diastolic dysfunction consistent with markedly increased left atrial pressure Continue [employer] beta-maliha, ASA, statin Initially noted to be overloaded and was given lasix 20mg IV x 1 dose on 06/17 per cardiology recommendations 06/22 was started on po spironolactone 25mg daily and po Lasix 20mg daily Cardiology had recommended holding home lisinopril and Imdur - continue to be on hold 06/25: pt volume overloaded and was given 40mg Lasix IV, po Lasix and Aldactone placed on hold 06/26: pt with reported decreased SOB and CXR showed improvement, was given 20mg IV Lasix 06/27: restarted 20mg po Lasix, continue to hold po Aldactone 2/2 borderline BP 06/28: still with 2+ RLE, 1+ LLE edema with grossly unchanged pulmonary vascular congestion and b/l pleural effusions on repeat CXR -Lasix 10mg IV x 1 06/29: still with BLE edema, nonproductive cough which is likely 2/2 persistent volume overload -Lasix 10mg IV x 1 07/02: BLE edema L>R, nonproductive wet cough, weight unchanged from previous assessments x 3 days Admission BNP was 968, then was 501 on 06/26 Monitor I's &O's and daily weights for further diuretic adjustment Weight 104.2kg on admission -> 103.2kg -> 103.2kg today (note documented weight 110kg on admission however likely error as repeat weight entered 6h later was 104.2kg) Seems relatively euvolemic, Continue Lasix 20mg PO daily Hyponatremia Hypoosmolar hyponatremia 2/2 illness, SIADH, hypothyroidism, volume overload ISO medication noncompliance Na 130 today Check BMP tomorrow Continue 1.8L FFR and monitor Severe constipation Seen on KUB done 06/26 Was started on MiraLAX BID and Colace BID Repeat KUB 06/28 still with large amount of retained stool Nick daily lactulose added 06/28 Pt now passing BMs Pt reports improvement in abd discomfort/distention Bilateral pulmonary emboli Apical cardiac thrombus DVT in LLE Splenic infarct History of known cardiac thrombus ISO HFrEF, found on echo 04/25/25 Pt with recent noncompliance with Eliquis [employer] On this admission: DVT with thrombophlebitis and left common femoral vein DVT & multiple pulm emboli noted Was on IV heparin drip for 48hrs then transitioned back to Eliquis with loading dose on 06/19 Continue Eliquis 5 mg BID Hypothyroidism TSH: 18, Free T4 0.59 Likely 2/2 levothyroxine noncompliance Resume prior levothyroxine dosing Will need repeat TSH in 4-6 weeks MDD Anxiety Palliative consulted on admission 11/14 request for hospice Previous provider discussed further with pt and brother, seeming passive SI however does endorse desire to improve Psych consulted 06/18: increased Abilify to 5mg daily, increased Zoloft to 100mg daily Chronic anemia Hgb 10.2 06/29 Iron level 23, start Fe supplementation Continue to monitor HTN [employer] 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 consider addition of midodrine for BP support with diuretic uptitration Severe CHARLEEN CPAP intolerance Will obtain nocturnal oximetry tonight History of CVA in 2007 with residual L-sided weakness Continue statin and ASA Insulin-requiring DM2 H/o medication noncompliance, previously was well-controlled with Hgb A1c 6.8% in January 2025 06/17/25 Hgb A1c: 9.4% Basal/bolus insulin (2) Splenic infarction: (3) LV (left ventricular) mural thrombus: (4) Ischemic cardiomyopathy: (5) Acute on chronic heart failure with reduced ejection fraction (HFrEF, <= 40%): (6) Aspiration pneumonia: (7) Hypertension: (8) DM2 (diabetes mellitus, type 2): (9) Acute hypoxemic respiratory failure: (10) Hyponatremia: (11) Cerebrovascular small vessel disease: (12) Vascular dementia: Total Time Total Time Spent Total Time Spent (In Minutes): Patient seen in collaboration with Dr. Lemon. Please see addendum.I spent a total of 35 minutes coordinating, documenting and providing care for this patient excluding time spent in the performance of separately billed services or time spent by another provider/QHP. Discharge Plan Discharge Items Patient Disposition: Transfer Inpatient Rehab Fac Reason For Visit: PE, CHF Discharge Diagnosis: Acute hypoxic respiratory failure secondary to sepsis pneumonia Condition on Discharge: Serious Activity: Per Instructions section Lifting: Gradually increase as tolerated Bathing: No limitations Exercise/Sports: Gradually increase as tolerated Weightbearing: Full weightbearing Weightbearing Comment: Rolling walker assist Non-emergency contact: Primary Care Provider Call non-emergency contact if: you have any medication questions, your pain is not controlled and you have a fever Follow-up/Referrals: Jennifer Jimenez DO [Primary Care Provider] - Little Whitfield DNP [Nurse Practitioner] - Diet: Carb Consistent or DM2 and Low Sodium (2gm) Fluids: 1800ml (7 cups) Addtl Attending Provider Instructions: Mr. Corbin, Morales were admitted to the hospital on 06/16/2025 for shortness of breath and found to have severe sepsis from an aspiration pneumonia. You were treated with intravenous antibiotics and completed antibiotic course sometime around 06/21. Following treatment, you had a persistent cough following this pneumonia, however, we do not feel this cough is related to the pneumonia. Your most recent Chest xray is showing grossly stable and consistent with heart failure. This is most likely relating to your heart failure and has been treated with diuretics, called lasix. You will continue diuretic management once leaving the hospital. Cardiology consulted while you were inpatient and recommended intravenous diuretics with transition to oral lasix. On admission to the hospital, imaging showed a blood clot in the left leg as well as blood clots in the lungs. You were treated with heparin infusion and then transitioned to Eliquis which is an anticoagulant. It is very important you remain compliant with this once leaving the hospital. For your high blood pressure, your home lisinopril and isosorbide was initially held because your blood pressure was too low. This was most likely from the sepsis infection. As you improved these medications were resumed. Your blood pressure was 110/74 at time of discharge. It was noted on labs workup that you were anemic while in the hospital, and most likely related to chronic disease. Iron supplementation was started and expected to continue once discharged from the hospital. During this hospitalization our palliative team consulted due to ongoing kelsea rns of anxiety and depression. Some medications were changed to better treat your symptoms, including Abilify additional and and increased dose of Zoloft. This new regimen has seemed to help your symptoms and we encourage compliance with medications following discharge from our care. SUMMARY OF TEST RESULTS: 04/25/25 TTE: EF=20-25%, diffuse hypokinesis to akinesis, moderate size apical thrombus, mild aortic valve sclerosis without stenosis, mild mitral regurgitation, mild tricuspid regurgitation, moderate left to right interatrial shunt, grade III diastolic dysfunction consistent with markedly increased left atrial pressure Head CT IMPRESSION: 1. No evidence of acute intracranial abnormality is demonstrated. 2. Chronic microvascular ischemic changes.-stable. 3. Cerebral atrophy.-stable Chest Xray IMPRESSION: Blunting of bilateral costophrenic angle - suggestive of pleural effusion.- slightly increased Inhomogeneous opacities noted involving bilateral lower zones- possibility of congestive changes/pneumonitis.- increased Venous Doppler Study: IMPRESSION: 1. Nonocclusive deep venous thrombosis of the left common femoral vein. 2. There is thrombophlebitis of the left greater saphenous vein. 3. Nonspecific subcutaneous edema bilaterally. 4. No deep vein thrombosis of the right lower extremity. RECOMMENDATIONS FOR FOLLOW-UP: Follow-up with primary care provider in [place] for ongoing care. Strongly encourage medication compliance. Cough and deep breathing, ambulation, flutter valve use encouraged or heart and lung health. OTHER INSTRUCTIONS: Seek medical attention if you have: * temperature above 101 * chest pain or trouble breathing * abdominal pain, nausea, vomiting * diarrhea, dark stools or bloody stools * any unanswered questions or concerns Call 911 if symptoms are severe. Please take good care of yourself. It has been a pleasure taking care of you. Please take care of yourself. If you have any questions regarding your recent hospitalization please contact [facility] and request Antoinette Whitneyist @ [phone]. Pending Studies at Discharge: No Stand-Alone Forms: My [facility] Skilled Items Patient informed of condition?: Yes DNR: Yes Discharge Level of Care: Skilled Communicable Disease: No Discharge Prognosis: Improving Lines: None Urinary Catheter: No Medications and DC Order Prescriptions: New docusate sodium 100 mg Capsule 100 mg PO BID Qty: 60 0RF furosemide 20 mg Tablet 20 mg PO QAM Qty: 30 0RF ferrous sulfate 325 mg (65 mg iron) Tablet,Delayed Release (Dr/Ec) 325 mg PO QAM Qty: 30 0RF fluticasone propionate 50 mcg/actuation [place],Suspension 2 spray NA DAILY Qty: 1 0RF loratadine [Wal-itin] 10 mg Tablet 10 mg PO QAM Qty: 30 0RF Sore Throat (phenol) 1.4 % Aerosol,[place] 2 spray MT Q4H PRN (Reason: sore throat) Qty: 1 0RF polyethylene glycol 3350 [Miralax] 17 gram Powder In Packet 17 g PO BID Qty: 60 0RF magnesium oxide 400 mg (241.3 mg magnesium) Tablet 400 mg PO BID Qty: 60 0RF Continued levothyroxine 175 mcg Tablet 175 mcg PO DAILYBB Qty: 30 0RF isosorbide mononitrate 30 mg Tablet Extended Release 24 Hr 30 mg PO DAILY Qty: 30 0RF aspirin 81 mg tablet,delayed release (DR/EC) 81 mg PO QAM Qty: 30 0RF cyanocobalamin (vitamin B-12) 500 mcg Tablet 1,000 mcg PO DAILY Qty: 30 0RF tamsulosin [Flomax] 0.4 mg Capsule 0.4 mg PO DAILY Qty: 30 0RF pantoprazole 40 mg Tablet,Delayed Release (Dr/Ec) 40 mg PO QAM Qty: 30 0RF nitroglycerin [Nitrostat] 0.4 mg Tablet, Sublingual 0.4 mg sublingual DIRECTED PRN (Reason: Chest Pain) Qty: 3 0RF lisinopril 5 mg Tablet 5 mg PO QAM Qty: 30 0RF metoprolol succinate 25 mg Tablet Extended Release 24 Hr 25 mg PO DAILY Qty: 30 0RF metformin 500 mg Tablet Extended Release 24 Hr 500 mg PO DIRECTED Qty: 30 0RF Rx Instructions: 500 MG QAM X 2 WEEKS, THEN INCREASE TO 1,000 MG QAM. clotrimazole 1 % Cream 1 applic TOPICAL TID PRN (Reason: AFFECTED AREAS) Qty: 1 0RF sertraline 50 mg Tablet 50 mg PO QAM Qty: 30 0RF rosuvastatin 10 mg Tablet 10 mg PO QAM Qty: 30 0RF aripiprazole 2 mg Tablet 2 mg PO QAM Qty: 30 0RF insulin glargine [Lantus Solostar U-100 Insulin] 100 unit/mL (3 mL) Insulin Pen 40 unit SUBCUT HS Qty: 1 0RF Eliquis 5 mg Tablet 5 mg PO BID Qty: 60 1RF Advanced Probiotic 625 mg (10 billion cell) Capsule 1 cap PO DAILY Qty: 7 0RF Discontinued acetaminophen 650 mg Tablet Extended Release 650 mg PO Q8H PRN (Reason: Pain) nystatin 100,000 unit/gram Powder 1 applic TOPICAL TID PRN (Reason: APPLY TO SCROTUM NEEDED) Hold Instructions: Resume on 05/02/25. discuss w/ primary care doctor if/when to resume Discharge Orders: Discharge Order (Routine); Ordered 07/02/25 Ordered By: Nell Tolentino/Other Patient Handouts: High Blood Sugar (Hyperglycemia), Managing Type 2 Diabetes Admission Data Admit Date/Time: 06/16/25 20:44 Attending Provider: Harpal Lemon Admit Provider: Igor Jasmine Primary Care Provider: Jennifer Jimenez Other Providers: Isadora Rivera; Igor Jasmine; [facility],; [facility] Other Interventions: Discharge Summary Assessment (RN) Last Done: 07/02/25 13:52
== END 2025-07-02 14:25 | DRG 871 ==
LOC: ED 16:16 → SUATTDRO 20:44 → 4W 20:44 → 3E 06-22 14:16